=== PATIENT | female | born 1950 | race Caucasian/White ===

== ENCOUNTER → 2018-11-15 12:49 | Outpatient (CLI) | payer MEDICARE, OTHER, SELFPAY ==
[2018-11-15 14:11] LABS: Alanine Aminotransferase 21 IU/L (9-52); Albumin 4.7 g/dL (3.5-5.0); Albumin Globulin Ratio 1.4 (1.0-2.8); Alkaline Phosphatase 66 U/L (38-126); Aspartate Aminotransferase 48 IU/L (14-36); BUN Creatinine Ratio 18.3 (6-22); Blood Urea Nitrogen 11 mg/dL (7-17); Calcium 9.4 mg/dL (8.4-10.2); Carbon Dioxide 27 mmol/L (22-32); Chloride 102 mmol/L (98-107); Cholesterol 173 mg/dL (140-199); Creatine Kinase 116 U/L (30-135); Estimated Glomerular Filt Rate > 60.0 mL/min (>60); Globulin 3.3 g/dL (1.7-4.1); Glucose 85 mg/dL (80-110); HDL Cholesterol 52 mg/dL (40-60); HEMOLYSIS < 15 (0-50); LDL Cholesterol Calculated 92 mg/dL (<100); Potassium 4.1 mmol/L (3.4-5.1); Sodium 139 mmol/L (137-145); Triglycerides 145 mg/dL (35-150)
== END ==
PROVIDERS: Family Provider Internal Medicine; Visit Provider Internal Medicine Cardiovascular Disease
DX: E78.2 Mixed hyperlipidemia (principal); Z51.81 Encounter for therapeutic drug level monitoring
CPT/HCPCS: 36415; 80053; 80061; 82550

== ENCOUNTER → 2018-11-15 | Outpatient (CLI) | payer MEDICARE, OTHER, SELFPAY | PROVIDERS: Family Provider Internal Medicine; Visit Provider Internal Medicine Cardiovascular Disease | DX: E78.2 Mixed hyperlipidemia (principal); Z51.81 Encounter for therapeutic drug level monitoring ==

== ENCOUNTER → 2019-10-04 13:58 | Outpatient (CLI) | payer MEDICARE, OTHER, SELFPAY ==
--- NOTE | 2019-10-04 | DI.MG.S_ITS ---
BILATERAL DIGITAL SCREENING MAMMOGRAM 3D/2D WITH CAD: 10/04/2019 CLINICAL: Routine screening. Personal history of left breast cancer. Family history of breast cancer. Comparison is made to exams dated: 06/22/2018 mammogram and 06/14/2017 mammogram - [facility]. The tissue of both breasts is heterogeneously dense. This may lower the sensitivity of mammography. Current study was also evaluated with a Computer Aided Detection (CAD) system. There are benign calcifications in both breasts. There also are benign post operative findings in the left breast. No significant masses, calcifications, or other findings are seen in either breast. There has been no significant interval change. IMPRESSION: There is no mammographic evidence of malignancy. A 1 year screening mammogram is recommended. This exam was interpreted at Station ID: [id number]. NOTE: For mammograms, a report in lay terms will be sent to the patient. Approximately 15% of breast malignancies will not be visualized mammographically. In the management of a palpable breast mass, a negative mammogram must not discourage biopsy of a clinically suspicious lesion. Electronically Signed By: Paulo echevarria/lexi:10/04/2019 14:38:55 letter sent: Normal Exam ACR BI-RADS Category 2: Benign Finding(s) 3342F
== END ==
PROVIDERS: Family Provider Internal Medicine; PCP Internal Medicine; Referring Provider Internal Medicine; Visit Provider Internal Medicine
DX: Z12.31 Encounter for screening mammogram for malignant neoplasm of breast (principal); Z85.3 Personal history of malignant neoplasm of breast; Z80.3 Family history of malignant neoplasm of breast
CPT/HCPCS: 77063; 77067

== ENCOUNTER → 2019-12-02 10:37 | Outpatient (CLI) | payer MEDICARE, OTHER, SELFPAY ==
[2019-12-02 11:56] LABS: Alanine Aminotransferase 15 IU/L (<35); Albumin 4.6 g/dL (3.5-5.0); Albumin Globulin Ratio 1.4 (1.0-2.8); Alkaline Phosphatase 77 U/L (38-126); Aspartate Aminotransferase 42 IU/L (14-36); BUN Creatinine Ratio 19.7 (6-22); Bilirubin Total 0.8 mg/dL (0.2-1.3); Blood Urea Nitrogen 12 mg/dL (7-17); Calcium 9.6 mg/dL (8.4-10.2); Carbon Dioxide 29 mmol/L (22-32); Chloride 103 mmol/L (98-107); Cholesterol 154 mg/dL (140-199); Creatine Kinase 118 U/L (30-135); Estimated Glomerular Filt Rate > 60.0 mL/min (>60); Globulin 3.3 g/dL (1.7-4.1); Glucose 92 mg/dL (80-110); HDL Cholesterol 50 mg/dL (40-60); HEMOLYSIS < 15 (0-50); LDL Cholesterol Calculated 71 mg/dL (<100); Potassium 4.2 mmol/L (3.4-5.1); Sodium 138 mmol/L (137-145); Total Protein 7.9 g/dL (6.3-8.2); Triglycerides 166 mg/dL (35-150)
[2019-12-02 12:11] LABS: CKMB % Relative Index 0.8 % (1.5-5.0); Creatine Kinase MB 0.93 ng/mL (<2.37)
== END ==
PROVIDERS: Family Provider Internal Medicine; PCP Internal Medicine; Referring Provider Internal Medicine Cardiovascular Disease; Visit Provider Internal Medicine Cardiovascular Disease
DX: E78.5 Hyperlipidemia, unspecified (principal)
CPT/HCPCS: 36415; 80053; 80061; 82550; 82553

== ENCOUNTER → 2020-09-23 08:55 | Outpatient (CLI) | payer MEDICARE, OTHER, SELFPAY ==
--- NOTE | 2020-09-23 08:57 | DI.ECHO.S_ITS ---
[facility] +---------+ [facility] +---------+ : : [address] : [place] : : : : [id number] : : : : Phone: [phone]---------+ Echocardiogram Report + + :Name: LEANA MCINTOSH Study Date: 09/23/2020 Height: 65 in : :[facility] ReadingLocation: Weight: 158 lb : : Gender: Female BSA: 1.8 m2 : :: 1950 Age: 70 yrs BP: 173/88 mmHg: :Reason For Study: PROSTHETIC HEART VALVE : :Ordering Physician: JENNY MOHR : : Performed By: Judy Francis : :Referring: JENNY MOHR MD : + + Interpretation Summary Left ventricular systolic function appears borderline reduced with an estimated ejection fraction of 50 to 55% with borderline global hypokinesis but no obvious focal wall motion abnormality. Left ventricular volumes are borderline increased with probable normal wall thickness. Diastolic function is somewhat challenging to assess but there is some evidence for elevated filling pressures. The right ventricle is borderline enlarged with borderline reduced systolic function. Right ventricular systolic pressure is at least 30 mmHg with a CVP of 3 mmHg. There is moderate left atrial enlargement and borderline right atrial enlargement. There is probable moderate, perhaps moderately severe, mitral regurgitation with a fairly impressive regurgitant jet. There is mild to moderate tricuspid regurgitation. There is a mechanical aortic valve prosthesis that appears to be well-seated with probable normal gradients across the valve. There is mild aortic regurgitation that may be perivalvular. The aortic root is at the upper limits of normal in size. Procedure: A two-dimensional transthoracic echocardiogram with color flow and Doppler was performed. The study quality was technically adequate. There is no prior echocardiogram noted for this patient. The patient was in sinus bradycardia with heart rates between 48-55 bpm during the exam. Left Ventricle: Left ventricular size is at the upper limits of normal. The estimated left ventricular end diastolic volume is 97 ml. There is normal left ventricular wall thickness. Left ventricular systolic function is borderline reduced. The ejection fraction is estimated to be 50-55%. There is borderline global hypokinesis of the left ventricle. There are no focal wall motion abnormalities. Diastolic parameters suggest a pseudonormalization pattern, consistent with probable elevated filling pressures. Right Ventricle: The right ventricle is borderline dilated. Right ventricular systolic function is at the lower limits of normal. Atria: The left atrium is moderately dilated. The right atrium is borderline dilated. Mitral Valve: There is mild mitral annular calcification. The mitral valve leaflets appear mildly thickened, but open well. There is moderate mitral regurgitation. There are multiple regurgitant jets present. Aortic Valve: There is a mechanical aortic valve. The prosthetic aortic valve is well-seated. The gradients through the prosthetic aortic valve are within the normal range for this type of valve. The peak aortic velocity is 2.2 m/sec. The aortic valve mean gradient is 9.4 mmHg. There is mild aortic regurgitation. Tricuspid Valve: The tricuspid valve leaflets are thin and pliable. There is mild to moderate tricuspid regurgitation. The right ventricular systolic pressure is estimated to be at least 30 mmHg based on an estimated right atrial pressure of 3 mm Hg. Pulmonic Valve: The pulmonic valve leaflets are thin and pliable; valve motion is normal. There is no pulmonic valvular regurgitation. Great Vessels: The aortic root is borderline dilated. The dimensions of the ascending aorta are normal. The IVC is of normal diameter and collapses greater than 50% with a sniff. This suggests a low right atrial pressure of 3 mm Hg. Pericardium/ Pleura There is no pericardial effusion. There is no pleural effusion. MMode/2D Measurements & Calculations LVIDd: 5.7 cm LVOT diam: 2.0 cm LVIDs: 3.9 cm Ao root diam: 3.6 cm FS: 31.6 % asc Aorta Diam: 2.9 cm EPSS: 1.0 cm Ao Arch Diam (Prox Trans): 2.9 cm IVSd: 0.74 cm LVPWd: 0.74 cm LV guerra. diameter/BSA (cm/m^2): 3.2 LV sys. diameter/BSA (cm/m^2): 2.2 LA A2 area: 26.0 cm2 RA long axis: 5.3 cm LA A4 area: 21.7 cm2 RA area: 17.6 cm2 LA length (vol): 5.6 cm RA vol: 50.1 ml LA vol: 85.1 ml RA : 28.0 ml/m2 LA vol index: 47.6 ml/m2 IVC diam: 1.6 cm RVD1 (basal): 4.1 cm TAPSE: 1.8 cm Doppler Measurements & Calculations Ao V2 max: 217.1 cm/sec LVOT Max Mono: 61.1 cm/sec Ao V2 mean: 142.9 cm/sec LV V1 max P.5 mmHg Ao max P.9 mmHg LV V1 VTI: 16.6 cm Ao mean P.4 mmHg JJ(I,D): 1.0 cm2 Ao V2 VTI: 49.1 cm JJ(V,D): 0.86 cm2 sev ratio: 0.34 JJ indexed to BSA (cm^2/m^2): 0.58 MV E max mono: 111.6 cm/sec TR max mono: 261.1 cm/sec MV A max mono: 82.5 cm/sec TR max P.3 mmHg MV E/A: 1.4 PA V2 max: 99.3 cm/sec Med Peak E' Mono: 4.0 cm/sec PA V2 mean: 66.2 cm/sec E/E' med: 27.7 PA mean P.0 mmHg Lat Peak E' Mono: 8.6 cm/sec PA pr(Accel): 39.6 mmHg E/E' lat: 13.0 E/e' average: 20.4 MV dec time: 0.15 sec MR ERO: 0.12 cm2 MR PISA: 2.0 cm2 SV(LVOT): 50.6 ml MR flow rate: 79.3 cm3/sec MR PISA radius: 0.56 cm Reading Physician:12:39 PM
== END ==
PROVIDERS: Family Provider Internal Medicine; PCP Internal Medicine; Referring Provider Internal Medicine Cardiovascular Disease; Visit Provider Internal Medicine Cardiovascular Disease
DX: I08.3 Combined rheumatic disorders of mitral, aortic and tricuspid valves (principal); Z95.2 Presence of prosthetic heart valve
CPT/HCPCS: 93306

== ENCOUNTER → 2020-10-01 10:37 | Outpatient (CLI) | payer MEDICARE, OTHER, SELFPAY ==
[2020-10-01 12:09] LABS: Alanine Aminotransferase 18 IU/L (<35); Albumin 4.5 g/dL (3.5-5.0); Albumin Globulin Ratio 1.4 (1.0-2.8); Alkaline Phosphatase 68 U/L (38-126); Aspartate Aminotransferase 57 IU/L (14-36); BUN Creatinine Ratio 19.7 (6-22); Bilirubin Total 0.8 mg/dL (0.2-1.3); Blood Urea Nitrogen 12 mg/dL (7-17); Calcium 9.4 mg/dL (8.4-10.2); Carbon Dioxide 30 mmol/L (22-32); Chloride 104 mmol/L (98-107); Cholesterol 165 mg/dL (140-199); Creatine Kinase 104 U/L (30-135); Estimated Glomerular Filt Rate > 60.0 mL/min (>60); Globulin 3.3 g/dL (1.7-4.1); Glucose 91 mg/dL (80-110); HDL Cholesterol 55 mg/dL (40-60); HEMOLYSIS < 15 (0-50); LDL Cholesterol Calculated 77 mg/dL (<100); Potassium 4.2 mmol/L (3.4-5.1); Sodium 139 mmol/L (137-145); Total Protein 7.8 g/dL (6.3-8.2); Triglycerides 167 mg/dL (35-150)
== END ==
PROVIDERS: Family Provider Internal Medicine; PCP Internal Medicine; Referring Provider Internal Medicine Cardiovascular Disease; Visit Provider Internal Medicine Cardiovascular Disease
DX: E78.00 Pure hypercholesterolemia, unspecified (principal)
CPT/HCPCS: 36415; 80053; 80061; 82550

== ENCOUNTER → 2021-08-19 14:22 | Outpatient (CLI) | payer MEDICARE, OTHER, SELFPAY ==
--- NOTE | 2021-08-19 | DI.MG.S_ITS ---
BILATERAL DIGITAL SCREENING MAMMOGRAM 3D/2D WITH CAD: 08/19/2021 CLINICAL: Routine screening. Personal history of left breast cancer. Comparison is made to exams dated: 10/04/2019 mammogram - [facility], 06/22/2018 mammogram, and 06/14/2017 mammogram - [facility]. The tissue of both breasts is heterogeneously dense. This may lower the sensitivity of mammography. Current study was also evaluated with a Computer Aided Detection (CAD) system. There are benign calcifications in both breasts. There also are benign post operative findings in the left breast. No significant masses, calcifications, or other findings are seen in either breast. There has been no significant interval change. IMPRESSION: BENIGN There is no mammographic evidence of malignancy. A 1 year screening mammogram is recommended. This exam was interpreted at Station ID: [id number]. NOTE: For mammograms, a report in lay terms will be sent to the patient. Approximately 15% of breast malignancies will not be visualized mammographically. In the management of a palpable breast mass, a negative mammogram must not discourage biopsy of a clinically suspicious lesion. Electronically Signed By: Kelin pereira/lexi:08/19/2021 16:40:01 letter sent: Normal Exam ACR BI-RADS Category 2: Benign Finding(s) 3342F
== END ==
PROVIDERS: Family Provider Internal Medicine; PCP Internal Medicine; Referring Provider Internal Medicine; Visit Provider Internal Medicine
DX: Z12.31 Encounter for screening mammogram for malignant neoplasm of breast (principal); Z85.3 Personal history of malignant neoplasm of breast
CPT/HCPCS: 77063; 77067

== ENCOUNTER → 2022-01-22 13:47 | Outpatient (CLI) | payer MEDICARE, OTHER, SELFPAY ==
[2022-01-30 09:44] LABS: CK-BB 0 % (0); CK-MB 0 % (0-3); CK-MM 100 % (97-100); Macro Type 1 0 % (Not Observed); Macro Type 2 0 % (Not Observed)
== END ==
PROVIDERS: Family Provider Internal Medicine; PCP Internal Medicine; Referring Provider Internal Medicine Cardiovascular Disease; Visit Provider Internal Medicine Cardiovascular Disease
DX: Z51.81 Encounter for therapeutic drug level monitoring (principal)
CPT/HCPCS: 36415; 82550; 82553

== ENCOUNTER → 2022-08-24 10:57 | Outpatient (CLI) | payer MEDICARE, OTHER, SELFPAY ==
--- NOTE | 2022-08-24 | DI.MG.S_ITS ---
BILATERAL DIGITAL SCREENING MAMMOGRAM 3D/2D WITH CAD: 08/24/2022 CLINICAL: Routine screening. Family history of breast cancer. Breast cancer. Comparison is made to exams dated: 08/19/2021 mammogram, 10/04/2019 mammogram - [facility], and 06/22/2018 mammogram - [facility]. Both breasts are heterogeneously dense, which may obscure small masses (category c / 51-75% glandular tissue). Current study was also evaluated with a Computer Aided Detection (CAD) system. There are benign calcifications in both breasts. There also are benign post operative findings in the left breast. No significant masses, calcifications, or other findings are seen in either breast. There has been no significant interval change. IMPRESSION: BENIGN There is no mammographic evidence of malignancy. A 1 year screening mammogram is recommended. This exam was interpreted at Station ID: [id number]. NOTE: For mammograms, a report in lay terms will be sent to the patient. Approximately 15% of breast malignancies will not be visualized mammographically. In the management of a palpable breast mass, a negative mammogram must not discourage biopsy of a clinically suspicious lesion. Electronically Signed By: Kelin pereira/lexi:08/24/2022 12:07:36 letter sent: Normal Exam ACR BI-RADS Category 2: Benign Finding(s) 3342F
== END ==
PROVIDERS: Family Provider Internal Medicine; PCP Internal Medicine; Referring Provider Internal Medicine; Visit Provider Internal Medicine
DX: Z12.31 Encounter for screening mammogram for malignant neoplasm of breast (principal)
CPT/HCPCS: 77063; 77067

== ENCOUNTER 2022-12-31 08:02 | Emergency (ER) | payer MEDICARE, OTHER, SELFPAY ==
[2022-12-31] VITALS (38 sets, daily range): BP systolic 120–191; BP diastolic 55–138; PULSE 51–68; RESP 7–22; TEMP 35.6–36.4; O2SAT 90–99; BMI 25.0
--- NOTE | 2022-12-31 08:08 | DI.RAD.S_ITS ---
PROCEDURE: XR CHEST 1V INDICATIONS: weakness TECHNIQUE: One view of the chest was acquired. COMPARISON: None. FINDINGS: Surgical changes and devices: Sternotomy wires, mediastinal clips, and prosthetic heart valve are noted. Lungs and pleura: Lungs are clear. No pleural effusions or pneumothorax. Mediastinum: Tortuosity of the aorta is noted. Cardiac size is within normal limits for a portable exam. Bones and chest wall: No suspicious bony lesions. Overlying soft tissues appear unremarkable. IMPRESSION: No acute cardiopulmonary abnormality identified. Approved by: Jeb Rodriguez M.D. on 12/31/2022 at 8:50
--- NOTE | 2022-12-31 08:08 | DI.CT.S_ITS ---
PROCEDURE: CT HEAD/BRAIN WO CON INDICATIONS: MARTINEZ/N/V TECHNIQUE: Noncontrast 4.5 mm thick angled axial sections acquired from the foramen magnum to the vertex, with coronal and sagittal reformats. For radiation dose reduction, the following was used: automated exposure control, adjustment of mA and/or kV according to patient size. COMPARISON: None. FINDINGS: Image quality: Excellent. CSF spaces: Basal cisterns are patent. No extra-axial fluid collections. The ventricles are symmetric in size and shape. Brain: There is a 1.6 x 1.2 x 1.5 cm hyperdense mass in the left cerebellum. There is mild vasogenic edema surrounding the mass. No intracranial bleeds or masses. There is cerebral volume loss for age, with resultant ventricular and sulcal prominence. There are periventricular and deep white matter chronic small vessel ischemic changes. There is intracranial internal carotid artery atherosclerosis. Skull and face: Calvarium and visualized facial bones appear intact, without suspicious lesions. Sinuses: Visualized sinuses and mastoids are clear. IMPRESSION: 1. A 1.6 x 1.2 x 1.5 cm hyperdense mass in the left cerebellum with mild vasogenic edema and mass effect. The finding is concerning for neoplasm such as hemorrhagic metastasis. Recommend MRI with and without contrast for further evaluation. The result was discussed with Dr. Roth. Dictated by: Gm Servin M.D. on 12/31/2022 at 8:21 Approved by: Gm Servin M.D. on 12/31/2022 at 8:25
--- NOTE | 2022-12-31 08:09 | ED_ITS ---
HPI - Nausea/Vomiting/Diarrhea General Chief complaint: Nausea/Vomiting/Diarrhea Stated complaint: N/V/D, Dizziness Time Seen by Provider: 12/31/22 08:05 History of Present Illness HPI Narrative: 72-year-old female with history of hypertension, hyperlipidemia, aortic valve replacement on Coumadin (congential problems) presents by EMS from home for nausea, vomiting, generalized weakness. Patient states that she woke up with a low-grade headache and subsequently developed nausea, vomiting, diarrhea. Headache is currently resolved but patient feels generally weak and lightheaded. Vital signs significant for hypertension EN route. Patient states she went to bed in her usual state of good health. Denies abdominal pain Related Data Allergies Allergy/AdvReac Type Severity Reaction Status Date / Time penicillin G Allergy Mild Verified 10/18/22 11:25 Tetracyclines Allergy Mild Verified 12/31/22 08:09 Review of Systems Review of Systems Narrative: CONSTITUTIONAL- Denies: fever, chills, fatigue HEENT- Denies: sore throat, nosebleed, vision changes RESPIRATORY- Denies: shortness of breath, cough, wheezing CARDIAC- Denies: chest pain, edema, orthopnea GI-reports: Nausea, vomiting, diarrhea Denies: abdominal pain, constipation - Denies: frequency, dysuria, hematuria, flank pain MSK- Denies: extremity pain, extremity swelling, joint pain, joint swelling SKIN- Denies: rash, itching, burn, swelling NEUROLOGICAL-reports: Headache Denies: numbness, weakness, dizziness PSYCHIATRIC- Denies: anxiety, depression, suicidal ideation, homicidal ideation Patient History Social History Smoking Status: Never smoker Smoking Status: Never smoker Exam Initial Vital Signs Initial Vital Signs: Vital Signs Blood Pressure 189/92 H 12/31/22 08:05 Pulse Oximetry 97 12/31/22 08:05 Const: Awake, alert, no acute distress, nontoxic appearing, appears fatigued Eyes: PERRL, EOMI, conjunctiva normal ENT: Atraumatic, dentition normal, mucous membranes moist Cardiac: regular rate, regular rhythm RESP: unlabored, clear bilaterally, no wheezing GI: Atraumatic, soft, nontender, nondistended, no rebound, no guarding MSK: Atraumatic, full range of motion, pulses equal Skin: Warm, Dry, intact, no rashes Neuro: AO x3, CN II-XII grossly intact, moves all extremities Psych: affect normal, mood normal, not suicidal, not homicidal Course Course Course Narrative: Nontoxic-appearing female presenting for nausea and vomiting with diarrhea. Previous low-grade headache, none currently. Abdomen is soft, there is no tenderness to light or deep palpation. Patient states that currently her primary concern is her generalized weakness. We will draw laboratory work, we will give antiemetics and IV fluids. We will CT brain due to headache prior to symptom onset. Additional Information: Patient's case discussed with neurosurgery Dr. Zaldivar at , who requested additional 5 mg of IV vitamin K but otherwise agree with current management. He accepts this patient for transfer ER to ER, he requested that if no transport has arrived by 12:00 p.m. that we order an additional CT scan of the brain. I discussed the results of all labs and imaging as well as the neurosurgical recommendations with patient and at bedside. is still attempting to obtain records of patient's mechanical valve. We will continue to attempt to obtain a mechanical valve records while patient is in our ER. Orders Ordered: ED Orders 12/31/22 08:08 CT head/brain wo con Stat XR chest 1V Stat 12/31/22 08:11 EKG-12 Lead Stat 12/31/22 08:12 CBC Auto Diff [Complete Blood Count AUTO DIFF] Stat CMP [Comprehensive Metabolic Panel] Stat Lipase Stat 12/31/22 08:14 PT [Prothrombin Time INR] Stat Trop I [Troponin I] Stat 12/31/22 08:45 FFP [Fresh Frozen Plasma] Stat Type and Screen Stat 12/31/22 09:25 COVID19 -Nasal RAPID Stat Nicardipine HCl 25 mg/ Sodium (Chloride) 250 mls @ 50 mls/hr IV TITRATE JESUSITA; Protocol Last Titration: 12/31/22 09:39 Dose: 2.5 mg/hr, 25 mls/hr Documented By: Admin: 12/31/22 08:38 Dose: 5 mg/hr, 50 mls/hr Documented By: NL Discontinued Medications Dexamethasone (Dexamethasone 10 Mg/Ml Vial) 10 mg IV NOW ONE Stop: 12/31/22 08:26 Last Admin: 12/31/22 08:38 Dose: 10 mg Documented By: NEIL Sodium Chloride (Normal Saline 0.9%) 1,000 mls @ 1,000 mls/hr IV BOLUS ONE Stop: 12/31/22 09:08 Last Admin: 12/31/22 08:24 Dose: 1,000 mls/hr Documented By: NEIL Phytonadione 10 mg/ Sodium (Chloride) 101 mls @ 202 mls/hr IV NOW ONE Stop: 12/31/22 08:32 Last Infusion: 12/31/22 09:33 Dose: 0 mls/hr Documented By: Admin: 12/31/22 08:46 Dose: 202 mls/hr Documented By: NEIL Phytonadione 5 mg/ Sodium (Chloride) 100.5 mls @ 201 mls/hr IV NOW ONE Stop: 12/31/22 10:06 Last Admin: 12/31/22 10:30 Dose: 201 mls/hr Metoclopramide HCl (Metoclopramide 10 Mg/2 Ml Inj) 10 mg IV NOW ONE Stop: 12/31/22 08:37 Last Admin: 12/31/22 08:42 Dose: 10 mg Documented By: NEIL Ondansetron HCl (Ondansetron 4 Mg/2 Ml Inj) 4 mg IV NOW ONE Stop: 12/31/22 08:09 Last Admin: 12/31/22 08:24 Dose: 4 mg Documented By: NEIL Reevaluation(s) Reevaluation #1: Preliminary read of CT shows possible bleed in the cerebellar region. I requested that radiology technicians push images urgently to radiologist for stat read. Reevaluation #2: Radiology called to discuss patient's scan. There appears to be vasogenic edema and a possible mass in the cerebellar region with possible hemorrhage. This is concerning for metastases. Recommended MRI of brain with and without contrast. Unfortunately patient does have an artificial mechanical valve. She states that it is a [place] valve but does not have a card on her. Per department protocol we are not able to obtain an MRI without a card that is specifically states that it is MRI compatible. I called the patient's Thang, who stated that he would reach out to the patient's heart doctor to see if he could get records faxed over to ER for review. Call received from lab, patient's INR is elevated at 7.7. Due to hypertension in setting of possible hemorrhage with vasogenic edema patient started on Cardene drip, vitamin K ordered to reverse INR, Decadron ordered. Consult requested to [facility] neurosurgery. Dr. Zaldivar agreed with current management, requested additional 5mg vitamin K as well as 1u FFP prior to transfer. If patient does not have transport by 12p then he requested a repeat CT of the brain. Reevaluation #3: Ambulance transport arrived to take patient to [facility]. Patient GCS 15, no neurologic deficits, hemodynamically stable. Consultations Consultation #1: Dr. Zaldivar ([facility] [place]) Vital Signs Vital signs: Vital Signs - 8 hr 12/31/22 08:09 12/31/22 08:05 12/31/22 08:05 Temperature 97.5 F L Pulse Rate 64 Respiratory Rate 22 Blood Pressure 191/92 H 189/92 H Pulse Oximetry 98 97 Oxygen Delivery Method Room Air Oxygen Flow Rate 12/31/22 08:08 12/31/22 08:08 12/31/22 08:22 Temperature Pulse Rate 66 Respiratory Rate 19 Blood Pressure 191/92 H 175/76 H Pulse Oximetry 98 Oxygen Delivery Method Oxygen Flow Rate 12/31/22 08:22 12/31/22 08:30 12/31/22 08:30 Temperature Pulse Rate 58 L 53 L Respiratory Rate 19 18 Blood Pressure 166/71 H Pulse Oximetry 98 98 Oxygen Delivery Method Oxygen Flow Rate 12/31/22 08:35 12/31/22 08:35 12/31/22 08:39 Temperature Pulse Rate 67 Respiratory Rate 22 Blood Pressure 188/138 H 165/75 H Pulse Oximetry 98 Oxygen Delivery Method Oxygen Flow Rate 12/31/22 08:39 12/31/22 08:40 12/31/22 08:40 Temperature Pulse Rate 64 62 Respiratory Rate 20 18 Blood Pressure 173/69 H Pulse Oximetry 98 98 Oxygen Delivery Method Oxygen Flow Rate 12/31/22 08:46 12/31/22 08:46 12/31/22 08:50 Temperature Pulse Rate 59 L Respiratory Rate 20 Blood Pressure 148/66 H 145/63 H Pulse Oximetry Oxygen Delivery Method Oxygen Flow Rate 12/31/22 08:50 12/31/22 08:55 12/31/22 08:55 Temperature Pulse Rate 59 L 57 L Respiratory Rate 19 18 Blood Pressure 145/67 H Pulse Oximetry 98 98 Oxygen Delivery Method Oxygen Flow Rate 12/31/22 09:00 12/31/22 09:00 12/31/22 09:05 Temperature Pulse Rate 55 L Respiratory Rate 18 Blood Pressure 149/71 H 147/68 H Pulse Oximetry 97 Oxygen Delivery Method Oxygen Flow Rate 12/31/22 09:05 12/31/22 09:10 12/31/22 09:10 Temperature Pulse Rate 55 L 56 L Respiratory Rate 17 19 Blood Pressure 145/67 H Pulse Oximetry 98 99 Oxygen Delivery Method Oxygen Flow Rate 12/31/22 09:15 12/31/22 09:15 12/31/22 09:20 Temperature Pulse Rate 63 59 L Respiratory Rate 18 18 Blood Pressure 140/62 Pulse Oximetry 98 90 L Oxygen Delivery Method Oxygen Flow Rate 12/31/22 09:20 12/31/22 09:25 12/31/22 09:25 Temperature Pulse Rate 62 Respiratory Rate 18 Blood Pressure 128/62 132/60 Pulse Oximetry 99 Oxygen Delivery Method Nasal Cannula Oxygen Flow Rate 2 12/31/22 09:30 12/31/22 09:30 12/31/22 09:35 Temperature Pulse Rate 57 L Respiratory Rate 15 Blood Pressure 124/55 L 120/58 L Pulse Oximetry 99 Oxygen Delivery Method Oxygen Flow Rate 12/31/22 09:35 12/31/22 09:40 12/31/22 09:40 Temperature Pulse Rate 51 L 60 Respiratory Rate 7 L 14 Blood Pressure 124/61 Pulse Oximetry 97 98 Oxygen Delivery Method Oxygen Flow Rate 12/31/22 09:45 12/31/22 09:45 12/31/22 09:50 Temperature Pulse Rate 58 L Respiratory Rate 11 L Blood Pressure 125/65 129/66 Pulse Oximetry 98 Oxygen Delivery Method Oxygen Flow Rate 12/31/22 09:50 12/31/22 09:54 12/31/22 09:55 Temperature Pulse Rate 58 L 58 L Respiratory Rate 15 17 Blood Pressure 138/70 Pulse Oximetry 98 98 Oxygen Delivery Method Oxygen Flow Rate 12/31/22 09:55 12/31/22 10:00 12/31/22 10:00 Temperature Pulse Rate 64 64 Respiratory Rate 17 14 Blood Pressure 143/76 H Pulse Oximetry 98 99 Oxygen Delivery Method Oxygen Flow Rate 12/31/22 10:05 12/31/22 10:05 12/31/22 10:10 Temperature Pulse Rate 61 Respiratory Rate 15 Blood Pressure 140/71 138/67 Pulse Oximetry 99 Oxygen Delivery Method Oxygen Flow Rate 12/31/22 10:10 12/31/22 10:15 12/31/22 10:15 Temperature Pulse Rate 62 57 L Respiratory Rate 17 15 Blood Pressure 135/68 Pulse Oximetry 98 98 Oxygen Delivery Method Nasal Cannula Oxygen Flow Rate 2 12/31/22 10:20 12/31/22 10:20 Temperature Pulse Rate 60 Respiratory Rate 18 Blood Pressure 131/69 Pulse Oximetry 98 Oxygen Delivery Method Oxygen Flow Rate MDM - Nausea/Vomiting/Diarrhea Lab Data 12/31/22 08:12 12/31/22 08:12 Labs: Lab Results 12/31/22 12/31/22 12/31/22 Range/Units 08:12 08:12 08:14 WBC 6.1 (4.5-11.0) X10^3/uL RBC 4.22 (4.0-5.2) X10^6/uL Hgb 13.8 (12.0-16.0) g/dL Hct 40.5 (36-46) % MCV 96.0 (80-100) fL MCH 32.8 (26-34) PG MCHC 34.1 (30-36) % RDW 12.9 (11.6-14.8) % Plt Count 236 (150-400) X10^3/uL Neut % (Auto) 50.2 (50-75) % Lymph % (Auto) 30.9 (25-40) % Sunflower % (Auto) 10.0 (3-14) % Eos % (Auto) 4.7 H (2-4) % Baso % (Auto) 4.2 H (0-2) % Neut # (Auto) 3000 (3073-6701) /uL Lymph # (Auto) 1900 (3163-2776) /uL Sunflower # (Auto) 600 (0-900) /uL Eos # (Auto) 300 (0-450) /uL Baso # (Auto) 300 H (0-100) /uL PT (10.1-12.7) SECONDS INR (0.9-1.3) Sodium 138 (137-145) mmol/L Potassium 3.8 (3.4-5.1) mmol/L Chloride 104 (98-107) mmol/L Carbon Dioxide 25 (22-32) mmol/L BUN 11 (7-17) mg/dL Creatinine 0.52 (0.52-1.04) mg/dL Estimated GFR > 60 (>60) mL/min BUN/Creatinine Ratio 21.2 (6-22) Glucose 117 H (80-110) mg/dL Calcium 9.3 (8.4-10.2) mg/dL Total Bilirubin 0.7 (0.2-1.3) mg/dL AST 59 H (14-36) IU/L ALT 32 (<35) IU/L Alkaline Phosphatase 81 (38-126) U/L Troponin I < 0.012 (0.01-0.034) ng/mL Total Protein 7.9 (6.3-8.2) g/dL Albumin 4.5 (3.5-5.0) g/dL Globulin 3.4 (1.7-4.1) g/dL Albumin/Globulin Ratio 1.3 (1.0-2.8) Lipase 106 (23-300) U/L SARS-CoV-2 (PCR) (Negative) Blood Type Antibody Screen 12/31/22 12/31/22 12/31/22 Range/Units 08:14 08:45 09:25 WBC (4.5-11.0) X10^3/uL RBC (4.0-5.2) X10^6/uL Hgb (12.0-16.0) g/dL Hct (36-46) % MCV (80-100) fL MCH (26-34) PG MCHC (30-36) % RDW (11.6-14.8) % Plt Count (150-400) X10^3/uL Neut % (Auto) (50-75) % Lymph % (Auto) (25-40) % Sunflower % (Auto) (3-14) % Eos % (Auto) (2-4) % Baso % (Auto) (0-2) % Neut # (Auto) (4040-6538) /uL Lymph # (Auto) (1064-8182) /uL Sunflower # (Auto) (0-900) /uL Eos # (Auto) (0-450) /uL Baso # (Auto) (0-100) /uL PT 90.7 H (10.1-12.7) SECONDS INR 7.7 H* (0.9-1.3) Sodium (137-145) mmol/L Potassium (3.4-5.1) mmol/L Chloride (98-107) mmol/L Carbon Dioxide (22-32) mmol/L BUN (7-17) mg/dL Creatinine (0.52-1.04) mg/dL Estimated GFR (>60) mL/min BUN/Creatinine Ratio (6-22) Glucose (80-110) mg/dL Calcium (8.4-10.2) mg/dL Total Bilirubin (0.2-1.3) mg/dL AST (14-36) IU/L ALT (<35) IU/L Alkaline Phosphatase (38-126) U/L Troponin I (0.01-0.034) ng/mL Total Protein (6.3-8.2) g/dL Albumin (3.5-5.0) g/dL Globulin (1.7-4.1) g/dL Albumin/Globulin Ratio (1.0-2.8) Lipase (23-300) U/L SARS-CoV-2 (PCR) Negative (Negative) Blood Type O Positive Antibody Screen Negative Discharge Plan Departure Patient Disposition: [facility] Clinical Impression: Brain mass, Nausea & vomiting, Vasogenic edema, Supratherapeutic INR Referrals: Breanna Chaney MD [Primary Care Provider] -
[2022-12-31 08:17] LABS: Add Manual Diff / Slide Review NO; Basophils Absolute Auto 300 /uL (0-100); Basophils Percent Auto 4.2 % (0-2); Eosinophils Absolute Auto 300 /uL (0-450); Eosinophils Percent Auto 4.7 % (2-4); Hematocrit 40.5 % (36-46); Hemoglobin 13.8 g/dL (12.0-16.0); Lymphocytes Absolute Auto 1900 /uL (1100-4500); Lymphocytes Percent Auto 30.9 % (25-40); Mean Corpuscular HGB Conc 34.1 % (30-36); Mean Corpuscular Hemoglobin 32.8 PG (26-34); Monocytes Absolute Auto 600 /uL (0-900); Neutrophils Absolute Auto 3000 /uL (1500-7000); Neutrophils Percent Auto 50.2 % (50-75); Platelet Count 236 X10^3/uL (150-400); Red Blood Cell Count 4.22 X10^6/uL (4.0-5.2); Red Cell Distribution Width 12.9 % (11.6-14.8); White Blood Cell Count 6.1 X10^3/uL (4.5-11.0)
[2022-12-31] MEDS: ONDANSETRON 4 MG/2 ML INJ IV (08:24)
[2022-12-31] MEDS: SODIUM CHLORIDE 0.9% 1,000 ML 1000 ML IV (08:24)
[2022-12-31 08:28] LABS: Alanine Aminotransferase 32 IU/L (<35); Albumin 4.5 g/dL (3.5-5.0); Albumin Globulin Ratio 1.3 (1.0-2.8); Alkaline Phosphatase 81 U/L (38-126); Aspartate Aminotransferase 59 IU/L (14-36); BUN Creatinine Ratio 21.2 (6-22); Bilirubin Total 0.7 mg/dL (0.2-1.3); Blood Urea Nitrogen 11 mg/dL (7-17); Calcium 9.3 mg/dL (8.4-10.2); Carbon Dioxide 25 mmol/L (22-32); Chloride 104 mmol/L (98-107); Estimated Glomerular Filt Rate > 60 mL/min (>60); Globulin 3.4 g/dL (1.7-4.1); Glucose 117 mg/dL (80-110); HEMOLYSIS 19 (0-50); Lipase 106 U/L (23-300); Potassium 3.8 mmol/L (3.4-5.1); Sodium 138 mmol/L (137-145); Total Protein 7.9 g/dL (6.3-8.2)
[2022-12-31 08:32] LABS: INR 7.7 (0.9-1.3); Prothrombin Time 90.7 SECONDS (10.1-12.7)
[2022-12-31] MEDS: DEXAMETHASONE 10 MG/ML VIAL IV (08:38)
[2022-12-31] MEDS: NICARDIPINE 25 MG in SODIUM CHLORIDE 0.9% 240 ML 50 MG IV (08:38)
[2022-12-31 08:39] LABS: Troponin I < 0.012 ng/mL (0.01-0.034)
[2022-12-31] MEDS: METOCLOPRAMIDE 10 MG/2 ML INJ IV (08:42)
[2022-12-31] MEDS: PHYTONADIONE (VIT K1) 10 MG in SODIUM CHLORIDE 0.9% 100 ML 202 MG IV (08:46)
--- NOTE | 2022-12-31 09:32 | PC.NURSE ---
pure wick placed on patient after bedpan use. education provided. call light left within reach if patient has any concerns with purewick
--- NOTE | 2022-12-31 09:39 | PC.NURSE ---
spoke with provider to inform her pt's BP is 120/50s. verbal order to reduce nicardipene by 2.5
[2022-12-31 10:02] LABS: COVID19 -Nasal RAPID Negative (Negative)
[2022-12-31] MEDS: PHYTONADIONE (VIT K1) 5 MG in SODIUM CHLORIDE 0.9% 100 ML 201 MG IV (10:30)
--- NOTE | 2022-12-31 11:08 | PC.NURSE ---
pt bp has gradually been going up over last 30min. EMS to increase necardipine back up to 5/hr.
--- NOTE | 2022-12-31 11:15 | PC.NURSE ---
pt transferred to EMS with nicardipine infusing, rate changed by them per previous note. also transferred to EMS with FFP flowing, verbalized rate changed with no reactions after first 15min.
== END 2022-12-31 11:15 | disposition short-term general hospital (02) ==
PROVIDERS: Emergency Provider Emergency Medicine; Family Provider Internal Medicine; PCP Internal Medicine
DX: G93.6 Cerebral edema (principal); G93.89 Other specified disorders of brain; R79.1 Abnormal coagulation profile; R11.2 Nausea with vomiting, unspecified; Z79.01 Long term (current) use of anticoagulants; Z95.2 Presence of prosthetic heart valve; Z20.822 Contact with and (suspected) exposure to COVID-19
CPT/HCPCS: 36430; 70450; 71045; 80053; 83690; 84484; 85025; 85610; 86850; 86900; 86901; 86927; 87635; 93005; 96365; 96375; 99285; C9803; P9016; P9017; J1100; J2405; J2765; J3430

== ENCOUNTER → 2023-06-07 12:31 | Outpatient (CLI) | payer MEDICARE, OTHER, SELFPAY ==
[2023-06-07 13:43] LABS: Add Manual Diff / Slide Review NO; Basophils Absolute Auto 0 /uL (0-100); Basophils Percent Auto 0.3 % (0-2); Eosinophils Absolute Auto 100 /uL (0-450); Hematocrit 39.8 % (36-46); Hemoglobin 13.6 g/dL (12.0-16.0); Lymphocytes Absolute Auto 800 /uL (1100-4500); Lymphocytes Percent Auto 13.7 % (25-40); Mean Corpuscular HGB Conc 34.1 % (30-36); Mean Corpuscular Hemoglobin 32.5 PG (26-34); Mean Corpuscular Volume 95.2 fL (80-100); Monocytes Absolute Auto 600 /uL (0-900); Monocytes Percent Auto 11.1 % (3-14); Neutrophils Absolute Auto 4000 /uL (1500-7000); Neutrophils Percent Auto 72.9 % (50-75); Platelet Count 217 X10^3/uL (150-400); Red Blood Cell Count 4.18 X10^6/uL (4.0-5.2); Red Cell Distribution Width 13.7 % (11.6-14.8); White Blood Cell Count 5.5 X10^3/uL (4.5-11.0)
[2023-06-07 14:00] LABS: INR 2.9 (0.9-1.3); Prothrombin Time 34.2 SECONDS (9.4-12.5)
[2023-06-07 14:07] LABS: Alanine Aminotransferase 21 IU/L (<35); Albumin 4.6 g/dL (3.5-5.0); Albumin Globulin Ratio 1.4 (1.0-2.8); Alkaline Phosphatase 65 U/L (38-126); Aspartate Aminotransferase 47 IU/L (14-36); BUN Creatinine Ratio 23.2 (6-22); Bilirubin Total 0.8 mg/dL (0.2-1.3); Blood Urea Nitrogen 13 mg/dL (7-17); Calcium 9.6 mg/dL (8.4-10.2); Carbon Dioxide 36 mmol/L (22-32); Chloride 103 mmol/L (98-107); Cholesterol 131 mg/dL (140-199); Estimated Glomerular Filt Rate > 60 mL/min (>60); Globulin 3.3 g/dL (1.7-4.1); Glucose 83 mg/dL (80-110); HDL Cholesterol 56 mg/dL (40-60); HEMOLYSIS < 15 (0-50); LDL Cholesterol Calculated 44 mg/dL (<100); Potassium 3.9 mmol/L (3.4-5.1); Sodium 139 mmol/L (137-145); Total Protein 7.9 g/dL (6.3-8.2); Triglycerides 157 mg/dL (35-150)
[2023-06-07 14:36] LABS: Thyroid Stimulating Hormone 1.95 uIU/mL (0.47-4.68)
[2023-06-07 15:13] LABS: Folate 9.8 ng/mL (2.76-20.0); Vitamin B12 620 pg/mL (239-931)
[2023-06-07 15:20] LABS: Vitamin D 25 Hydroxy (D3) 41.4 ng/mL (30.0-100.0)
[2023-06-08 11:15] LABS: Hemoglobin A1C% w Est Avg Glu 5.2 % (4.0-6.0)
== END ==
LOC: LAB 12:34
PROVIDERS: Family Provider Family Medicine; PCP Family Medicine; Referring Provider Family Medicine; Visit Provider Family Medicine
DX: I35.9 Nonrheumatic aortic valve disorder, unspecified (principal); R73.9 Hyperglycemia, unspecified; Z79.899 Other long term (current) drug therapy; E78.5 Hyperlipidemia, unspecified; M85.80 Other specified disorders of bone density and structure, unspecified site; R41.3 Other amnesia
CPT/HCPCS: 36415; 80053; 80061; 82306; 82607; 82746; 83036; 84443; 85025; 85610

== ENCOUNTER → 2023-06-11 10:26 | Outpatient (CLI) | payer MEDICARE, OTHER, SELFPAY ==
--- NOTE | 2023-06-11 10:30 | DI.MRI.S_ITS ---
PROCEDURE: MR HIP LT WO CON INDICATIONS: Pain in left hip TECHNIQUE: Noncontrast coronal T1 spin echo and STIR through the bony pelvis. Coronal and axial T2 fast spin echo with fat saturation, sagittal T1 spin echo, and oblique axial T2 fast spin echo with fat saturation through the hip. COMPARISON: None. FINDINGS: Image quality: Excellent. Bones and joints: Bone marrow of the pelvic ring and proximal femurs show normal signal throughout. No intraosseous lesions or fractures. No avascular necrosis of the femoral head. Degenerative disc disease and facet hypertrophy are seen in the included spine. Tendons and ligaments: The gluteus medius and minimus tendons demonstrate mild tendinosis. The proximal iliotibial band appears intact. The iliopsoas tendon appears intact, without adjacent bursal fluid collections. The origin of the hamstring tendon demonstrates mild tendinosis. The tendons for the direct and indirect heads of the rectus femoris muscle appear intact. Labrum and cartilage: There is diffuse labral degeneration. Mild to moderate partial-thickness cartilage thinning is seen at the superior aspect of the hip with marginal osteophyte formation. There is normal morphology of the femoral head and acetabulum. Soft tissues: There is focal fluid signal at the origin of the right adductor longus muscle that is suspicious for partial tearing. Increased T2-weighted signal is seen throughout the right medial and anterior compartment musculature that is suspicious for chronic denervation changes. There is associated loss of muscle bulk. The remaining visualized muscles demonstrate normal bulk and internal signal. Quadratus femoris muscle demonstrates no internal edema to suggest ischiofemoral impingement. The proximal sciatic neurovascular bundle appears normal adjacent to the hamstring tendons. Pelvic soft tissues demonstrate no acute abnormality. IMPRESSION: 1. Mild to moderate left hip osteoarthrosis with partial thickness cartilage thinning and marginal osteophyte formation. Mild diffuse labral degeneration. 2. Mild distal gluteus medius and minimus tendinosis without definite tendon tearing. Mild proximal hamstring tendinosis. 3. Focal partial tearing of the contralateral right adductor longus muscle at its origin adjacent to the pubic symphysis. 4. Diffuse [id number] signal and atrophy within the right anterior and abductor compartment musculature, which is suspicious for chronic denervation changes. 5. Degenerative changes in the included spine. Approved by: Jeb Rodriguez M.D. on 06/11/2023 at 16:45
--- NOTE | 2023-06-11 11:13 | DI.RAD.S_ITS ---
PROCEDURE: XR KNEE RT 3V INDICATIONS: KNEE PAIN TECHNIQUE: 3 views of the knee were acquired. COMPARISON: None. FINDINGS: Bones: No fractures or dislocations. Osteochondroma of the medial femoral epicondyle. Tricompartmental joint space narrowing with associated osteophytosis. Soft tissues: Small joint effusion. No suspicious soft tissue calcifications. 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 If there is pain over this specific location, an MRI with contrast would be indicated to exclude sarcoma. Dictated by: Jefferson Obrien M.D. on 06/11/2023 at 13:45 Approved by: Jefferson Obrien M.D. on 06/11/2023 at 13:48
== END ==
PROVIDERS: Family Provider Family Medicine; PCP Family Medicine; Referring Provider Family Medicine; Visit Provider Family Medicine
DX: M17.11 Unilateral primary osteoarthritis, right knee (principal); M16.12 Unilateral primary osteoarthritis, left hip; S76.011A Strain of muscle, fascia and tendon of right hip, initial encounter; D16.21 Benign neoplasm of long bones of right lower limb; M25.552 Pain in left hip; M25.561 Pain in right knee; Z91.81 History of falling; Z86.69 Personal history of other diseases of the nervous system and sense organs
CPT/HCPCS: 73562; 73721

== ENCOUNTER → 2023-08-26 12:31 | Outpatient (CLI) | payer MEDICARE, OTHER, SELFPAY ==
--- NOTE | 2023-08-26 12:32 | DI.MG.S_ITS ---
BILATERAL DIGITAL SCREENING MAMMOGRAM 3D/2D WITH CAD: 08/26/2023 CLINICAL: Routine screening. Personal history of left breast cancer. Comparison is made to exams dated: 08/24/2022 mammogram, 08/19/2021 mammogram, and 10/04/2019 mammogram - [facility]. Both breasts are heterogeneously dense, which may obscure small masses (category c / 51-75% glandular tissue). Current study was also evaluated with a Computer Aided Detection (CAD) system. There are benign post operative findings in the left breast. No significant masses, calcifications, or other findings are seen in either breast. There has been no significant interval change. IMPRESSION: BENIGN There is no mammographic evidence of malignancy. A 1 year screening mammogram is recommended. This exam was interpreted at Station ID: [id number]. NOTE: For mammograms, a report in lay terms will be sent to the patient. Approximately 15% of breast malignancies will not be visualized mammographically. In the management of a palpable breast mass, a negative mammogram must not discourage biopsy of a clinically suspicious lesion. Electronically Signed By: Jasmina Basilio M.D., Ph.D. felipe/penrad:08/27/2023 02:02:25 letter sent: Normal Exam ACR BI-RADS Category 2: Benign Finding(s) [id number]
== END ==
LOC: MAMMO 12:32
PROVIDERS: Family Provider Family Medicine; PCP Family Medicine; Referring Provider Family Medicine; Visit Provider Family Medicine
DX: Z12.31 Encounter for screening mammogram for malignant neoplasm of breast (principal); Z85.3 Personal history of malignant neoplasm of breast
CPT/HCPCS: 77063; 77067

== ENCOUNTER 2024-01-21 10:45 | Outpatient (RCR) | payer MEDICARE, OTHER, SELFPAY ==
--- NOTE | 2023-05-05 16:00 | PT.OIE ---
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 [id number], [place], [address] Email: Physical Therapy Initial Evaluation PT-OP-A Visit Information Start: 05/05/23 15:26 Freq: Status: Active Protocol: Document 05/05/23 13:50 DCW (Rec: 05/05/23 15:48 DCW [id number]) Out-Patient Physical Therapy Visit Information Visit Information Visit Type Initial Evaluation Visit Start Time 13:50 Visit Stop Time 14:30 Visit Number 1 Number of EXECUTIVE CREATIVE DIRECTOR Visits 0 Evaluation Information Evaluation Date 05/05/23 PT-OP-B Current Condition Start: 05/05/23 15:26 Freq: Status: Active Protocol: Document 05/05/23 13:50 DCW (Rec: 05/05/23 15:48 DCW [id number]) Current Condition History of Current Condition Onset Date 12/31/22 Current Complaints R LE weakness, falls, neuromuscular dysfunction History of Current Condition Pt is a 73 year old female presenting with a complex recent medical history. Pt was brought to ED on 12/31/22 by EMS for nausea, vomiting, and generalized weakness. Was found to have cerebellar bleed and was transferred to [facility]. 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 Pt was at [facility] for 5 1/2 weeks, and then transferred to a rehab facility in [place] for another two months. Pt reports that at [facility], she was up walking around fairly well, but then developed severe nerve pain in her right leg. Found to have a large hematoma in her right low back/hip which ended up compressing right LE nerves. This resulted in loss of motor function and sensory imput from right leg. Pt admits she was miserable waiting for the pain to stop. Due to motor dysfunction in her right leg, was having increased difficulty walking, and spent her time in rehab in a wheelchair. Leg weakness resulted in two fals, both of which yusef her right knee. Pt has recently been working with home health, and is now doing well enough to progress to out-patient PT. Has been walking at home with a FWW, just obtained a 4WW, but not comfortable with it yet. Reports she can get herself to the kitchen, and furniture surf using the countertop and cabinets, and is able to dress and perform pericare independently. Still requires assistance with showering. Has friend helping as caregiver. Treatment Goals Patient/Caregiver Goals Pt's stated goals are to learn how to properly use 4WW, get right LE moving better, and walk on her own. PT-OP-C Subjective Start: 05/05/23 15:26 Freq: Status: Active Protocol: Document 05/05/23 13:50 DCW (Rec: 05/05/23 15:48 DCW [id number]) OP-PT Subjective Patient Comments Patient Comments Pt reports her continuing symptoms/complaints have little, if anything, to do with her AVM/cerebellar bleed, and are really all secondary to the R LE hematoma she developed, which resulted in nerve damage. PT-OP-E Functional Tests Start: 05/05/23 15:26 Freq: Status: Active Protocol: Document 05/05/23 13:50 DCW (Rec: 05/05/23 15:48 DCW [id number]) Functional Tests 2 Minute Walk Test Distance 174' Device Used FWW Comments 1.45 ft/sec 30 Second Sit to Stand Test Score x8 repetitions Comments UE use, left lateral shift PT-OP-G Mobility & Gait Start: 05/05/23 15:26 Freq: Status: Active Protocol: Document 05/05/23 13:50 DCW (Rec: 05/05/23 15:48 DCW [id number]) OP Mobility Evaluation Transfers Sit to Stand SBA /c FWW Bed to Chair Transfers SBA /c FWW Wheelchair Management Type of Wheelchair Manual Assessment Details Propells with B UEs OP Gait Assessment Gait Gait Assistance Required: Standby Assistance Distance (Feet) 174 Assistive Devices Assistive Device Gait Belt,Front Wheeled Walker Comments Gait Comments Pt uses momentum to advance right leg during swing phase due to absent quad control. Good foot clearance. PT-OP-H Neuro Start: 05/05/23 15:26 Freq: Status: Active Protocol: Document 05/05/23 13:50 DCW (Rec: 05/05/23 15:48 DCW [id number]) Sensation Evaluation Gross Sensation Gross Sensation Right LE Impaired Sensation Description Numbness,Tingling PT-OP-M Strength Start: 05/05/23 15:26 Freq: Status: Active Protocol: Document 05/05/23 13:50 DCW (Rec: 05/05/23 16:00 DCW [id number]) Hip Strength Hip Manual Muscle Testing Right Flexion (L2) 2+ Poor+ Extension (S1) 4- Good- Abduction 2 Poor Adduction 2 Poor Left Flexion (L2) 4+ Good+ Extension (S1) 4+ Good+ Abduction 4+ Good+ Adduction 4+ Good+ Knee Strength Knee Manual Muscle Testing Right Flexion (S2) 4 Good Extension (L3) 0 Zero Left Flexion (S2) 5 Normal Extension (L3) 5 Normal Ankle/Foot Strength Ankle and Foot Manual Muscle Testing Right Dorsiflexion (L4) 4 Good Plantarflexion (S1) 4 Good Left Dorsiflexion (L4) 4+ Good+ Plantarflexion (S1) 4+ Good+ PT-OP-T Assessment and Plan Start: 05/05/23 15:26 Freq: Status: Active Protocol: Document 05/05/23 13:50 DCW (Rec: 05/05/23 16:00 DCW [id number]) Physical Therapy Assessment Rehab Potential Rehabilitation Potential Fair Evaluation Complexity Number of Personal Factors/Comorbidities 3 or More Number of Body Systems Impaired 4 or More Clinical Presentation at Evaluation Unstable Impairments Impairments Balance,Functional Activities, Functional Mobility,Pain,ROM, Sensation,Soft Tissue Mobility ,Strength,Tone,Transfers Goals Three Impairment Pt currently demonstrating 0/5 MMT right quad Nursing Home Goal (LTG) Pt to exhibit 2-/5 MMT or greater of right quad in order to improve ability to limit knee buckling. LTG Duration 08/03/23 Two Impairment Pt ambulates 174' during Two Minute Walk Test using FWW Shipping Inspector Goal (LTG) Pt to exhibit ability to complete full 6MWT with no rest breaks using LRAD, ambulating >600' in order to demonstrate improve gait speed and activity tolerance LTG Duration 08/03/23 One Impairment Pt does not have an appropriate home exercise program Short Term Goal (STG) Pt to be independent and compliant with an appropriate HEP STG Duration 06/03/23 Assessment Summary Assessment Pt presents with signs and symptoms consistent with referring diagnosis. Pt myotomal pattern suggestive of L2-L3 nerve dysfunction, presenting as significant weakness in hip flexion and abd/adduction, as well as absent motor control of right quad/knee extension. Limits pt 's ability to stand and ambulate properly due to right knee buckling, and difficulty advancing right leg during swing phase. Pt should benefit from skilled therapy focusing on improving independent functional mobility with gait and transfers, trial of e-stim to promote quad motor contraction, hip and knee strengthening as possible, and improving activity tolerance. 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 Physical Therapy Plan Frequency and Duration Frequency of Treatment 2x/Week Plan of Care Start Date 05/05/23 Plan of Care End Date 08/03/23 Therapeutic Interventions Therapeutic Interventions Balance Training,Coordination Training,Gait Training,Home Exercise Program,Joint Mobilizations,Manual Therapy, Neuromuscular Re-education, Patient/Caregiver Education, Self-Care/Home Management, Sensory Integration,Soft Tissue Mobilization, Therapeutic Activities, Therapeutic Exercises Modalities Cold Pack/Ice Massage,Electric Stimulation,Hot Packs, Ultrasound Next Visit Focus/Plan Next Note Type Treatment Note Next Visit Plan Transfers, 4WW practice, gait/ balance training, trial of e- stim for quad contraction
--- NOTE | 2023-05-05 16:01 | PT.OPPOC ---
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, [place], [address] Email: Plan Of Care PT-OP-T Assessment and Plan Start: 05/05/23 15:26 Freq: Status: Active Protocol: Document 05/05/23 13:50 DCW (Rec: 05/05/23 16:00 DCW [id number]) Physical Therapy Assessment Rehab Potential Rehabilitation Potential Fair Evaluation Complexity Number of Personal Factors/Comorbidities 3 or More Number of Body Systems Impaired 4 or More Clinical Presentation at Evaluation Unstable Impairments Impairments Balance,Functional Activities, Functional Mobility,Pain,ROM, Sensation,Soft Tissue Mobility ,Strength,Tone,Transfers Goals Three Impairment Pt currently demonstrating 0/5 MMT right quad Alf Goal (LTG) Pt to exhibit 2-/5 MMT or greater of right quad in order to improve ability to limit knee buckling. LTG Duration 08/03/23 Two Impairment Pt ambulates 174' during Two Minute Walk Test using FWW Hip Hop Dance Instructor Goal (LTG) Pt to exhibit ability to complete full 6MWT with no rest breaks using LRAD, ambulating >600' in order to demonstrate improve gait speed and activity tolerance LTG Duration 08/03/23 One Impairment Pt does not have an appropriate home exercise program Short Term Goal (STG) Pt to be independent and compliant with an appropriate HEP STG Duration 06/03/23 Assessment Summary Assessment Pt presents with signs and symptoms consistent with referring diagnosis. Pt myotomal pattern suggestive of L2-L3 nerve dysfunction, presenting as significant weakness in hip flexion and abd/adduction, as well as absent motor control of right quad/knee extension. Limits pt 's ability to stand and ambulate properly due to right knee buckling, and difficulty advancing right leg during swing phase. Pt should benefit from skilled therapy focusing on improving independent functional mobility with gait and transfers, trial of e-stim to promote quad motor contraction, hip and knee strengthening as possible, and improving activity tolerance. 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 Physical Therapy Plan Frequency and Duration Frequency of Treatment 2x/Week Plan of Care Start Date 05/05/23 Plan of Care End Date 08/03/23 Therapeutic Interventions Therapeutic Interventions Balance Training,Coordination Training,Gait Training,Home Exercise Program,Joint Mobilizations,Manual Therapy, Neuromuscular Re-education, Patient/Caregiver Education, Self-Care/Home Management, Sensory Integration,Soft Tissue Mobilization, Therapeutic Activities, Therapeutic Exercises Modalities Cold Pack/Ice Massage,Electric Stimulation,Hot Packs, Ultrasound Next Visit Focus/Plan Next Note Type Treatment Note Next Visit Plan Transfers, 4WW practice, gait/ balance training, trial of e- stim for quad contraction Plan of Care Dates Plan of Care Start Date 05/05/23 Plan of Care End Date 08/03/23 Electronically Signed by: Romain Zuñiga, PT 05/05/23 9748 If you are in agreement with this Plan of Care, please return a signed and dated copy. I have reviewed this Plan of Care and certify that the skilled therapy services above are required to meet the patient?s needs. Physician Signature Date Printed Name and Credentials Clinical Instructor Signature Printed Name and Credentials
--- NOTE | 2023-05-10 14:43 | PT.OTN ---
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, right leg, subsequent encounter (05/10/23) Other specified postprocedural states (05/10/23) Physical Therapy Treatment Note PT-OP-A Visit Information Start: 05/05/23 15:26 Freq: Status: Active Protocol: Document 05/10/23 13:45 DCW (Rec: 05/10/23 14:43 DCW [id number]) Out-Patient Physical Therapy Visit Information Visit Information Visit Type Treatment Note Visit Start Time 13:45 Visit Stop Time 14:30 Visit Number 2 Number of DOWNSTREAM BIOMANUFACTURING TECHNICIAN Visits 0 Evaluation Information Evaluation Date 05/05/23 PT-OP-B Current Condition Start: 05/05/23 15:26 Freq: Status: Active Protocol: Document 05/05/23 13:50 DCW (Rec: 05/05/23 15:48 DCW [id number]) Current Condition History of Current Condition Onset Date 12/31/22 Current Complaints R LE weakness, falls, neuromuscular dysfunction History of Current Condition Pt is a 73 year old female presenting with a complex recent medical history. Pt was brought to ED on 12/31/22 by EMS for nausea, vomiting, and generalized weakness. Was found to have cerebellar bleed and was transferred to [facility]. 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 Pt was at [facility] for 5 1/2 weeks, and then transferred to a rehab facility in [place] for another two months. Pt reports that at [facility], she was up walking around fairly well, but then developed severe nerve pain in her right leg. Found to have a large hematoma in her right low back/hip which ended up compressing right LE nerves. This resulted in loss of motor function and sensory imput from right leg. Pt admits she was miserable waiting for the pain to stop. Due to motor dysfunction in her right leg, was having increased difficulty walking, and spent her time in rehab in a wheelchair. Leg weakness resulted in two fals, both of which yusef her right knee. Pt has recently been working with home health, and is now doing well enough to progress to out-patient PT. Has been walking at home with a FWW, just obtained a 4WW, but not comfortable with it yet. Reports she can get herself to the kitchen, and furniture surf using the countertop and cabinets, and is able to dress and perform pericare independently. Still requires assistance with showering. Has friend helping as caregiver. Treatment Goals Patient/Caregiver Goals Pt's stated goals are to learn how to properly use 4WW, get right LE moving better, and walk on her own. PT-OP-C Subjective Start: 05/05/23 15:26 Freq: Status: Active Protocol: Document 05/10/23 13:45 DCW (Rec: 05/10/23 14:43 DCW [id number]) OP-PT Subjective Patient Comments Patient Comments Pt reports she has been decreasing her Gabapentin, has not yet had any increase in nerve pain, other than a little zinger every now and then. PT-OP-E Functional Tests Start: 05/05/23 15:26 Freq: Status: Active Protocol: Document 05/05/23 13:50 DCW (Rec: 05/05/23 15:48 DCW [id number]) Functional Tests 2 Minute Walk Test Distance 174' Device Used FWW Comments 1.45 ft/sec 30 Second Sit to Stand Test Score x8 repetitions Comments UE use, left lateral shift PT-OP-G Mobility & Gait Start: 05/05/23 15:26 Freq: Status: Active Protocol: Document 05/05/23 13:50 DCW (Rec: 05/05/23 15:48 DCW [id number]) OP Mobility Evaluation Transfers Sit to Stand SBA /c FWW Bed to Chair Transfers SBA /c FWW Wheelchair Management Type of Wheelchair Manual Assessment Details Propells with B UEs OP Gait Assessment Gait Gait Assistance Required: Standby Assistance Distance (Feet) 174 Assistive Devices Assistive Device Gait Belt,Front Wheeled Walker Comments Gait Comments Pt uses momentum to advance right leg during swing phase due to absent quad control. Good foot clearance. PT-OP-H Neuro Start: 05/05/23 15:26 Freq: Status: Active Protocol: Document 05/05/23 13:50 DCW (Rec: 05/05/23 15:48 DCW [id number]) Sensation Evaluation Gross Sensation Gross Sensation Right LE Impaired Sensation Description Numbness,Tingling PT-OP-M Strength Start: 05/05/23 15:26 Freq: Status: Active Protocol: Document 05/05/23 13:50 DCW (Rec: 05/05/23 16:00 DCW [id number]) Hip Strength Hip Manual Muscle Testing Right Flexion (L2) 2+ Poor+ Extension (S1) 4- Good- Abduction 2 Poor Adduction 2 Poor Left Flexion (L2) 4+ Good+ Extension (S1) 4+ Good+ Abduction 4+ Good+ Adduction 4+ Good+ Knee Strength Knee Manual Muscle Testing Right Flexion (S2) 4 Good Extension (L3) 0 Zero Left Flexion (S2) 5 Normal Extension (L3) 5 Normal Ankle/Foot Strength Ankle and Foot Manual Muscle Testing Right Dorsiflexion (L4) 4 Good Plantarflexion (S1) 4 Good Left Dorsiflexion (L4) 4+ Good+ Plantarflexion (S1) 4+ Good+ PT-OP-Q Treatments Start: 05/05/23 15:26 Freq: Status: Active Protocol: Document 05/10/23 13:45 DCW (Rec: 05/10/23 14:43 DCW [id number]) Therapeutic Exercises Standing Exercises TKE Standing Exercise Name TKE Side right Resistance none Abduction Standing Exercise Name Hip Abduction Side bilateral Resistance 4# Equipment Used // bars Toe-taps Standing Exercise Name Toe-taps Side bilateral Resistance 4# Equipment Used 6 step Gait Training Gait Activity 4WW Description 4WW practice Comments VCs for brake use, keeping 4WW close to body, and handle height Neuro Re-Education Treatment Balance Activities Foam Stance Details NBOS Surface Blue Foam Equipment // bars Comments EO/EC Stride Stance Details Weight-shift fwd/bkwd Equipment // bars PT-OP-R Modalities Start: 05/10/23 13:44 Freq: Status: Active Protocol: Document 05/10/23 13:45 DCW (Rec: 05/10/23 14:43 DCW [id number]) Electric Stimulation Electric Stimulation Brazilian Stimulation Body Location R Quad Intensity 45->50 Frequency 4 on/12 off Ramp 2.0 Patient Position Sitting Comments Attempted LAQ during on phase PT-OP-T Assessment and Plan Start: 05/05/23 15:26 Freq: Status: Active Protocol: Document 05/10/23 13:45 DCW (Rec: 05/10/23 14:43 DCW [id number]) Physical Therapy Assessment Impairments Impairments Balance,Functional Activities, Functional Mobility,Pain,ROM, Sensation,Soft Tissue Mobility ,Strength,Tone,Transfers Goals Three Impairment Pt currently demonstrating 0/5 MMT right quad Big Data Engineer Goal (LTG) Pt to exhibit 2-/5 MMT or greater of right quad in order to improve ability to limit knee buckling. LTG Duration 08/03/23 Two Impairment Pt ambulates 174' during Two Minute Walk Test using FWW Big Data Engineer Goal (LTG) Pt to exhibit ability to complete full 6MWT with no rest breaks using LRAD, ambulating >600' in order to demonstrate improve gait speed and activity tolerance LTG Duration 08/03/23 One Impairment Pt does not have an appropriate home exercise program Short Term Goal (STG) Pt to be independent and compliant with an appropriate HEP STG Duration 06/03/23 Assessment Summary Assessment Brazilian e-stim trial not high enough intensity today for true quad contraction due to pt tolerance, but pt willing to attempt higher intensity next visit. Good response to activities, pt noted good difficulty with balance challenges. Physical Therapy Plan Frequency and Duration Frequency of Treatment 2x/Week Plan of Care Start Date 05/05/23 Plan of Care End Date 08/03/23 Therapeutic Interventions Therapeutic Interventions Balance Training,Coordination Training,Gait Training,Home Exercise Program,Joint Mobilizations,Manual Therapy, Neuromuscular Re-education, Patient/Caregiver Education, Self-Care/Home Management, Sensory Integration,Soft Tissue Mobilization, Therapeutic Activities, Therapeutic Exercises Modalities Cold Pack/Ice Massage,Electric Stimulation,Hot Packs, Ultrasound Next Visit Focus/Plan Next Note Type Treatment Note Next Visit Plan Transfers, 4WW practice, gait/ balance training, e-stim for quad contraction
--- NOTE | 2023-05-13 11:31 | PT.OTN ---
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, right leg, subsequent encounter (05/13/23) Other specified postprocedural states (05/13/23) Physical Therapy Treatment Note PT-OP-A Visit Information Start: 05/05/23 15:26 Freq: Status: Active Protocol: Document 05/13/23 10:30 DCW (Rec: 05/13/23 11:31 DCW [id number]) Out-Patient Physical Therapy Visit Information Visit Information Visit Type Treatment Note Visit Start Time 10:30 Visit Stop Time 11:15 Visit Number 3 Number of PRESIDENT AND CHIEF EXECUTIVE OFFICER Visits 0 Evaluation Information Evaluation Date 05/05/23 PT-OP-B Current Condition Start: 05/05/23 15:26 Freq: Status: Active Protocol: Document 05/05/23 13:50 DCW (Rec: 05/05/23 15:48 DCW [id number]) Current Condition History of Current Condition Onset Date 12/31/22 Current Complaints R LE weakness, falls, neuromuscular dysfunction History of Current Condition Pt is a 73 year old female presenting with a complex recent medical history. Pt was brought to ED on 12/31/22 by EMS for nausea, vomiting, and generalized weakness. Was found to have cerebellar bleed and was transferred to [facility]. 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 Pt was at [facility] for 5 1/2 weeks, and then transferred to a rehab facility in [place] for another two months. Pt reports that at [facility], she was up walking around fairly well, but then developed severe nerve pain in her right leg. Found to have a large hematoma in her right low back/hip which ended up compressing right LE nerves. This resulted in loss of motor function and sensory imput from right leg. Pt admits she was miserable waiting for the pain to stop. Due to motor dysfunction in her right leg, was having increased difficulty walking, and spent her time in rehab in a wheelchair. Leg weakness resulted in two fals, both of which yusef her right knee. Pt has recently been working with home health, and is now doing well enough to progress to out-patient PT. Has been walking at home with a FWW, just obtained a 4WW, but not comfortable with it yet. Reports she can get herself to the kitchen, and furniture surf using the countertop and cabinets, and is able to dress and perform pericare independently. Still requires assistance with showering. Has friend helping as caregiver. Treatment Goals Patient/Caregiver Goals Pt's stated goals are to learn how to properly use 4WW, get right LE moving better, and walk on her own. PT-OP-C Subjective Start: 05/05/23 15:26 Freq: Status: Active Protocol: Document 05/13/23 10:30 DCW (Rec: 05/13/23 11:31 DCW [id number]) OP-PT Subjective Patient Comments Patient Comments Noting less left hip pain recently. Does admit she had more nerve sensation/pain in her right leg after last visit , but that's probably a good thing, it's waking up a bit. PT-OP-E Functional Tests Start: 05/05/23 15:26 Freq: Status: Active Protocol: Document 05/05/23 13:50 DCW (Rec: 05/05/23 15:48 DCW [id number]) Functional Tests 2 Minute Walk Test Distance 174' Device Used FWW Comments 1.45 ft/sec 30 Second Sit to Stand Test Score x8 repetitions Comments UE use, left lateral shift PT-OP-G Mobility & Gait Start: 05/05/23 15:26 Freq: Status: Active Protocol: Document 05/05/23 13:50 DCW (Rec: 05/05/23 15:48 DCW [id number]) OP Mobility Evaluation Transfers Sit to Stand SBA /c FWW Bed to Chair Transfers SBA /c FWW Wheelchair Management Type of Wheelchair Manual Assessment Details Propells with B UEs OP Gait Assessment Gait Gait Assistance Required: Standby Assistance Distance (Feet) 174 Assistive Devices Assistive Device Gait Belt,Front Wheeled Walker Comments Gait Comments Pt uses momentum to advance right leg during swing phase due to absent quad control. Good foot clearance. PT-OP-H Neuro Start: 05/05/23 15:26 Freq: Status: Active Protocol: Document 05/05/23 13:50 DCW (Rec: 05/05/23 15:48 DCW [id number]) Sensation Evaluation Gross Sensation Gross Sensation Right LE Impaired Sensation Description Numbness,Tingling PT-OP-M Strength Start: 05/05/23 15:26 Freq: Status: Active Protocol: Document 05/05/23 13:50 DCW (Rec: 05/05/23 16:00 DCW [id number]) Hip Strength Hip Manual Muscle Testing Right Flexion (L2) 2+ Poor+ Extension (S1) 4- Good- Abduction 2 Poor Adduction 2 Poor Left Flexion (L2) 4+ Good+ Extension (S1) 4+ Good+ Abduction 4+ Good+ Adduction 4+ Good+ Knee Strength Knee Manual Muscle Testing Right Flexion (S2) 4 Good Extension (L3) 0 Zero Left Flexion (S2) 5 Normal Extension (L3) 5 Normal Ankle/Foot Strength Ankle and Foot Manual Muscle Testing Right Dorsiflexion (L4) 4 Good Plantarflexion (S1) 4 Good Left Dorsiflexion (L4) 4+ Good+ Plantarflexion (S1) 4+ Good+ PT-OP-Q Treatments Start: 05/05/23 15:26 Freq: Status: Active Protocol: Document 05/13/23 10:30 DCW (Rec: 05/13/23 11:31 DCW [id number]) Therapeutic Exercises Standing Exercises Hamstring Curls Standing Exercise Name HS curls Side bilateral Resistance 4# Toe-taps Standing Exercise Name Toe-taps Side bilateral Resistance 4# Equipment Used 6 step Other Exercises Step-ups Other Exercise Name Step-ups/step-downs Side right Equipment Used 2 step Resisted Ambulation Other Exercise Name Resisted side-stepping, forward c-stepping Side bilateral Resistance Green loop Neuro Re-Education Treatment Balance Activities Foam Stance Details NBOS Surface Blue Foam Equipment // bars Comments EO/EC PT-OP-R Modalities Start: 05/10/23 13:44 Freq: Status: Active Protocol: Document 05/13/23 10:30 DCW (Rec: 05/13/23 11:31 DCW [id number]) Electric Stimulation Electric Stimulation Trinidadian Stimulation Body Location R Quad Intensity 45->50 Frequency 4 on/12 off Ramp 2.0 Patient Position Sitting Comments Attempted LAQ during on phase PT-OP-T Assessment and Plan Start: 05/05/23 15:26 Freq: Status: Active Protocol: Document 05/13/23 10:30 DCW (Rec: 05/13/23 11:31 DCW [id number]) Physical Therapy Assessment Goals Three Impairment Pt currently demonstrating 0/5 MMT right quad Attendant Sales Goal (LTG) Pt to exhibit 2-/5 MMT or greater of right quad in order to improve ability to limit knee buckling. LTG Duration 08/03/23 Two Impairment Pt ambulates 174' during Two Minute Walk Test using FWW Skilled Nursing Goal (LTG) Pt to exhibit ability to complete full 6MWT with no rest breaks using LRAD, ambulating >600' in order to demonstrate improve gait speed and activity tolerance LTG Duration 08/03/23 One Impairment Pt does not have an appropriate home exercise program Short Term Goal (STG) Pt to be independent and compliant with an appropriate HEP STG Duration 06/03/23 Assessment Summary Assessment Better right quad response with functional mobility than with specific voluntary movement like attempting LAQ. Right knee does occasionally buckle, pt good with catching self with UE if something is available, but important to maintain close CGA in standing . Continue to focus on functional mobility, balance/ stability, quad contraction. Physical Therapy Plan Frequency and Duration Frequency of Treatment 2x/Week Plan of Care Start Date 05/05/23 Plan of Care End Date 08/03/23 Therapeutic Interventions Therapeutic Interventions Balance Training,Coordination Training,Gait Training,Home Exercise Program,Joint Mobilizations,Manual Therapy, Neuromuscular Re-education, Patient/Caregiver Education, Self-Care/Home Management, Sensory Integration,Soft Tissue Mobilization, Therapeutic Activities, Therapeutic Exercises Modalities Cold Pack/Ice Massage,Electric Stimulation,Hot Packs, Ultrasound Next Visit Focus/Plan Next Note Type Treatment Note Next Visit Plan Transfers, 4WW practice, gait/ balance training, e-stim for quad contraction
--- NOTE | 2023-05-17 13:45 | PT.OTN ---
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, right leg, subsequent encounter (05/17/23) Other specified postprocedural states (05/17/23) Physical Therapy Treatment Note PT-OP-A Visit Information Start: 05/05/23 15:26 Freq: Status: Active Protocol: Document 05/17/23 13:06 SP (Rec: 05/17/23 13:48 SP [id number]) Out-Patient Physical Therapy Visit Information Visit Information Visit Type Treatment Note Visit Start Time 13:06 Visit Stop Time 13:45 Visit Number 4 Number of CRANK HAND Visits 1 Evaluation Information Evaluation Date 05/05/23 PT-OP-B Current Condition Start: 05/05/23 15:26 Freq: Status: Active Protocol: Document 05/05/23 13:50 DCW (Rec: 05/05/23 15:48 DCW [id number]) Current Condition History of Current Condition Onset Date 12/31/22 Current Complaints R LE weakness, falls, neuromuscular dysfunction History of Current Condition Pt is a 73 year old female presenting with a complex recent medical history. Pt was brought to ED on 12/31/22 by EMS for nausea, vomiting, and generalized weakness. Was found to have cerebellar bleed and was transferred to [facility]. 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 Pt was at [facility] for 5 1/2 weeks, and then transferred to a rehab facility in [place] for another two months. Pt reports that at [facility], she was up walking around fairly well, but then developed severe nerve pain in her right leg. Found to have a large hematoma in her right low back/hip which ended up compressing right LE nerves. This resulted in loss of motor function and sensory imput from right leg. Pt admits she was miserable waiting for the pain to stop. Due to motor dysfunction in her right leg, was having increased difficulty walking, and spent her time in rehab in a wheelchair. Leg weakness resulted in two fals, both of which yusef her right knee. Pt has recently been working with home health, and is now doing well enough to progress to out-patient PT. Has been walking at home with a FWW, just obtained a 4WW, but not comfortable with it yet. Reports she can get herself to the kitchen, and furniture surf using the countertop and cabinets, and is able to dress and perform pericare independently. Still requires assistance with showering. Has friend helping as caregiver. Treatment Goals Patient/Caregiver Goals Pt's stated goals are to learn how to properly use 4WW, get right LE moving better, and walk on her own. PT-OP-C Subjective Start: 05/05/23 15:26 Freq: Status: Active Protocol: Document 05/17/23 13:06 SP (Rec: 05/17/23 13:48 SP [id number]) OP-PT Subjective Patient Comments Patient Comments Pt reports is able to dynamic swing RLE maybe little more quad activity but unable to lift lower leg front yet. PT-OP-E Functional Tests Start: 05/05/23 15:26 Freq: Status: Active Protocol: Document 05/05/23 13:50 DCW (Rec: 05/05/23 15:48 DCW [id number]) Functional Tests 2 Minute Walk Test Distance 174' Device Used FWW Comments 1.45 ft/sec 30 Second Sit to Stand Test Score x8 repetitions Comments UE use, left lateral shift PT-OP-G Mobility & Gait Start: 05/05/23 15:26 Freq: Status: Active Protocol: Document 05/05/23 13:50 DCW (Rec: 05/05/23 15:48 DCW [id number]) OP Mobility Evaluation Transfers Sit to Stand SBA /c FWW Bed to Chair Transfers SBA /c FWW Wheelchair Management Type of Wheelchair Manual Assessment Details Propells with B UEs OP Gait Assessment Gait Gait Assistance Required: Standby Assistance Distance (Feet) 174 Assistive Devices Assistive Device Gait Belt,Front Wheeled Walker Comments Gait Comments Pt uses momentum to advance right leg during swing phase due to absent quad control. Good foot clearance. PT-OP-H Neuro Start: 05/05/23 15:26 Freq: Status: Active Protocol: Document 05/05/23 13:50 DCW (Rec: 05/05/23 15:48 DCW [id number]) Sensation Evaluation Gross Sensation Gross Sensation Right LE Impaired Sensation Description Numbness,Tingling PT-OP-M Strength Start: 05/05/23 15:26 Freq: Status: Active Protocol: Document 05/05/23 13:50 DCW (Rec: 05/05/23 16:00 DCW [id number]) Hip Strength Hip Manual Muscle Testing Right Flexion (L2) 2+ Poor+ Extension (S1) 4- Good- Abduction 2 Poor Adduction 2 Poor Left Flexion (L2) 4+ Good+ Extension (S1) 4+ Good+ Abduction 4+ Good+ Adduction 4+ Good+ Knee Strength Knee Manual Muscle Testing Right Flexion (S2) 4 Good Extension (L3) 0 Zero Left Flexion (S2) 5 Normal Extension (L3) 5 Normal Ankle/Foot Strength Ankle and Foot Manual Muscle Testing Right Dorsiflexion (L4) 4 Good Plantarflexion (S1) 4 Good Left Dorsiflexion (L4) 4+ Good+ Plantarflexion (S1) 4+ Good+ PT-OP-Q Treatments Start: 05/05/23 15:26 Freq: Status: Active Protocol: Document 05/17/23 13:06 SP (Rec: 05/17/23 13:48 SP [id number]) Therapeutic Exercises Standing Exercises Hamstring Curls Standing Exercise Name HS curls Side bilateral Resistance 4# Toe-taps Standing Exercise Name Toe-taps Side bilateral Resistance 4# leg wt Equipment Used 4 step, 1 HR> no HR Reps/Minutes 10 reps, 5 reps slower pacing Comments cues for trunk over stance LE/ soft unlocked positioning Other Exercises Step-ups Other Exercise Name Step-ups/step-downs Side right Resistance AROM Equipment Used 2 step, B HR Mod/Max UE WB Reps/Minutes x5 reps Comments Pt very challenged RLE ascend heavy BUE support, R HR LLE asc/slow RLE ecc Gait Training Gait Activity FWW Device Used FWW Level of Assistance SBA Distance/Duration 340 ft fwd (wc trailing but didn't need), back stepping 20 ft Treatment Focus Soft R knee Comments 20 ft back stepping for function awareness, cues for sequencing FWW then each LE back stepping PT-OP-R Modalities Start: 05/10/23 13:44 Freq: Status: Active Protocol: Document 05/17/23 13:06 SP (Rec: 05/17/23 13:48 SP [id number]) Electric Stimulation Electric Stimulation Georgian Stimulation Body Location R Quad Intensity 45->50 Frequency 4 on/12 off Ramp 2.0 Patient Position Sitting Comments Attempted LAQ during on phase, ROSA PT-OP-T Assessment and Plan Start: 05/05/23 15:26 Freq: Status: Active Protocol: Document 05/17/23 13:06 SP (Rec: 05/17/23 13:48 SP [id number]) Physical Therapy Assessment Goals Three Impairment Pt currently demonstrating 0/5 MMT right quad Care Home Goal (LTG) Pt to exhibit 2-/5 MMT or greater of right quad in order to improve ability to limit knee buckling. LTG Duration 08/03/23 Two Impairment Pt ambulates 174' during Two Minute Walk Test using FWW [employer] Goal (LTG) Pt to exhibit ability to complete full 6MWT with no rest breaks using LRAD, ambulating >600' in order to demonstrate improve gait speed and activity tolerance LTG Duration 08/03/23 One Impairment Pt does not have an appropriate home exercise program Short Term Goal (STG) Pt to be independent and compliant with an appropriate HEP STG Duration 06/03/23 Assessment Summary Assessment Pt cuing for elongated posture slower eccentric pacing against resistance for progression strengthening. Pt would benefit from progression use of 4WW longer distances and trial SPC short distances. Physical Therapy Plan Frequency and Duration Frequency of Treatment 2x/Week Plan of Care Start Date 05/05/23 Plan of Care End Date 08/03/23 Therapeutic Interventions Therapeutic Interventions Balance Training,Coordination Training,Gait Training,Home Exercise Program,Joint Mobilizations,Manual Therapy, Neuromuscular Re-education, Patient/Caregiver Education, Self-Care/Home Management, Sensory Integration,Soft Tissue Mobilization, Therapeutic Activities, Therapeutic Exercises Modalities Cold Pack/Ice Massage,Electric Stimulation,Hot Packs, Ultrasound Next Visit Focus/Plan Next Note Type Treatment Note Next Visit Plan Transfers, 4WW practice, gait/ balance training, e-stim for quad contraction.
--- NOTE | 2023-05-20 13:46 | PT.OTN ---
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, right leg, subsequent encounter (05/20/23) Other specified postprocedural states (05/20/23) Physical Therapy Treatment Note PT-OP-A Visit Information Start: 05/05/23 15:26 Freq: Status: Active Protocol: Document 05/20/23 13:04 SP (Rec: 05/20/23 13:48 SP [id number]) Out-Patient Physical Therapy Visit Information Visit Information Visit Type Treatment Note Visit Start Time 13:04 Visit Stop Time 13:46 Visit Number 5 Number of LIBRARY SERVICES DEAN Visits 2 Evaluation Information Evaluation Date 05/05/23 PT-OP-B Current Condition Start: 05/05/23 15:26 Freq: Status: Active Protocol: Document 05/05/23 13:50 DCW (Rec: 05/05/23 15:48 DCW [id number]) Current Condition History of Current Condition Onset Date 12/31/22 Current Complaints R LE weakness, falls, neuromuscular dysfunction History of Current Condition Pt is a 73 year old female presenting with a complex recent medical history. Pt was brought to ED on 12/31/22 by EMS for nausea, vomiting, and generalized weakness. Was found to have cerebellar bleed and was transferred to [facility]. 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 Pt was at [facility] for 5 1/2 weeks, and then transferred to a rehab facility in [place] for another two months. Pt reports that at [facility], she was up walking around fairly well, but then developed severe nerve pain in her right leg. Found to have a large hematoma in her right low back/hip which ended up compressing right LE nerves. This resulted in loss of motor function and sensory imput from right leg. Pt admits she was miserable waiting for the pain to stop. Due to motor dysfunction in her right leg, was having increased difficulty walking, and spent her time in rehab in a wheelchair. Leg weakness resulted in two fals, both of which yusef her right knee. Pt has recently been working with home health, and is now doing well enough to progress to out-patient PT. Has been walking at home with a FWW, just obtained a 4WW, but not comfortable with it yet. Reports she can get herself to the kitchen, and furniture surf using the countertop and cabinets, and is able to dress and perform pericare independently. Still requires assistance with showering. Has friend helping as caregiver. Treatment Goals Patient/Caregiver Goals Pt's stated goals are to learn how to properly use 4WW, get right LE moving better, and walk on her own. PT-OP-C Subjective Start: 05/05/23 15:26 Freq: Status: Active Protocol: Document 05/20/23 13:04 SP (Rec: 05/20/23 13:48 SP [id number]) OP-PT Subjective Patient Comments Patient Comments Pt reported compliant with exercises but she only has 2 1LB leg wts and easy. She stated got her 4WW in but need put it together, hasn't use yet. PT-OP-E Functional Tests Start: 05/05/23 15:26 Freq: Status: Active Protocol: Document 05/05/23 13:50 DCW (Rec: 05/05/23 15:48 DCW [id number]) Functional Tests 2 Minute Walk Test Distance 174' Device Used FWW Comments 1.45 ft/sec 30 Second Sit to Stand Test Score x8 repetitions Comments UE use, left lateral shift PT-OP-G Mobility & Gait Start: 05/05/23 15:26 Freq: Status: Active Protocol: Document 05/05/23 13:50 DCW (Rec: 05/05/23 15:48 DCW [id number]) OP Mobility Evaluation Transfers Sit to Stand SBA /c FWW Bed to Chair Transfers SBA /c FWW Wheelchair Management Type of Wheelchair Manual Assessment Details Propells with B UEs OP Gait Assessment Gait Gait Assistance Required: Standby Assistance Distance (Feet) 174 Assistive Devices Assistive Device Gait Belt,Front Wheeled Walker Comments Gait Comments Pt uses momentum to advance right leg during swing phase due to absent quad control. Good foot clearance. PT-OP-H Neuro Start: 05/05/23 15:26 Freq: Status: Active Protocol: Document 05/05/23 13:50 DCW (Rec: 05/05/23 15:48 DCW [id number]) Sensation Evaluation Gross Sensation Gross Sensation Right LE Impaired Sensation Description Numbness,Tingling PT-OP-M Strength Start: 05/05/23 15:26 Freq: Status: Active Protocol: Document 05/05/23 13:50 DCW (Rec: 05/05/23 16:00 DCW [id number]) Hip Strength Hip Manual Muscle Testing Right Flexion (L2) 2+ Poor+ Extension (S1) 4- Good- Abduction 2 Poor Adduction 2 Poor Left Flexion (L2) 4+ Good+ Extension (S1) 4+ Good+ Abduction 4+ Good+ Adduction 4+ Good+ Knee Strength Knee Manual Muscle Testing Right Flexion (S2) 4 Good Extension (L3) 0 Zero Left Flexion (S2) 5 Normal Extension (L3) 5 Normal Ankle/Foot Strength Ankle and Foot Manual Muscle Testing Right Dorsiflexion (L4) 4 Good Plantarflexion (S1) 4 Good Left Dorsiflexion (L4) 4+ Good+ Plantarflexion (S1) 4+ Good+ PT-OP-Q Treatments Start: 05/05/23 15:26 Freq: Status: Active Protocol: Document 05/20/23 13:04 SP (Rec: 05/20/23 13:48 SP [id number]) Therapeutic Exercises Sitting Exercises knee extension slider Sitting Exercise Name cued medial knee /midline alignement Side right Equipment Used slider Reps/Minutes x15 Comments cued slower ext /c knee more adducted medially to midline / c space bwtn BLE hip ER gerard taps Sitting Exercise Name added to HEP (declined HO recheck next tx) Side bilateral Resistance L mid-upper gerard, R medial maleolli Reps/Minutes 5 reps x3 sets Comments cued L heel press floor, allows R foot lift Standing Exercises Hamstring Curls Standing Exercise Name HS curls Side bilateral Resistance 4# leg wt (has 2# at home) Equipment Used light contact rail Reps/Minutes 2x15 L, 2x10 R Comments cued elevated upper body Toe-taps Standing Exercise Name Toe-taps Side bilateral Resistance 5# leg wt Equipment Used 6 step, no HR Reps/Minutes 10 reps x2 slower pacing Comments cues for trunk over stance LE/ soft unlocked positioning Therapeutic Activity Therapeutic Activity transfers/sit on 4WW Name open space Reps/Minutes x4 reps Comments cues/ed for brake mgt sit/ stand, pivot light contact/not lean into 4WW due to did move slightly during pivot R. Cued marching steps COG over RAQUEL. Gait Training Gait Activity 4WW Description 4WW practice Level of Assistance SBA Surface tile/carpet Distance/Duration 340 ft Treatment Focus soft R knee quad fac WB, equal arsen, safe control pacing /c brake mgt Comments VCs for brake use pre sit/ stand and as needed for slower pacing, proximity body back legs of 4WW. PT-OP-R Modalities Start: 05/10/23 13:44 Freq: Status: Active Protocol: Document 05/17/23 13:06 SP (Rec: 05/17/23 13:48 SP [id number]) Electric Stimulation Electric Stimulation Welsh Stimulation Body Location R Quad Intensity 45->50 Frequency 4 on/12 off Ramp 2.0 Patient Position Sitting Comments Attempted LAQ during on phase, AAROM PT-OP-T Assessment and Plan Start: 05/05/23 15:26 Freq: Status: Active Protocol: Document 05/20/23 13:04 SP (Rec: 05/20/23 13:48 SP [id number]) Physical Therapy Assessment Goals Three Impairment Pt currently demonstrating 0/5 MMT right quad Fdc Goal (LTG) Pt to exhibit 2-/5 MMT or greater of right quad in order to improve ability to limit knee buckling. LTG Duration 08/03/23 Two Impairment Pt ambulates 174' during Two Minute Walk Test using FWW Fdc Goal (LTG) Pt to exhibit ability to complete full 6MWT with no rest breaks using LRAD, ambulating >600' in order to demonstrate improve gait speed and activity tolerance LTG Duration 08/03/23 One Impairment Pt does not have an appropriate home exercise program Short Term Goal (STG) Pt to be independent and compliant with an appropriate HEP STG Duration 06/03/23 Assessment Summary Assessment Pt improved R soft knee/ unlocked positioning during weighted step taps no UE support. Less stance time closer to even arsen gait /c 4WW, better understanding proper use. Pt improved hip flexion/adduction RLE gerard taps with LLE post cues for LLE heel press into floor and upright posturing. Physical Therapy Plan Frequency and Duration Frequency of Treatment 2x/Week Plan of Care Start Date 05/05/23 Plan of Care End Date 08/03/23 Therapeutic Interventions Therapeutic Interventions Balance Training,Coordination Training,Gait Training,Home Exercise Program,Joint Mobilizations,Manual Therapy, Neuromuscular Re-education, Patient/Caregiver Education, Self-Care/Home Management, Sensory Integration,Soft Tissue Mobilization, Therapeutic Activities, Therapeutic Exercises Modalities Cold Pack/Ice Massage,Electric Stimulation,Hot Packs, Ultrasound Next Visit Focus/Plan Next Note Type Treatment Note Next Visit Plan Transfers, 4WW practice, gait/ balance training, e-stim for quad contraction.
--- NOTE | 2023-05-24 14:28 | PT.OTN ---
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, right leg, subsequent encounter (05/24/23) Other specified postprocedural states (05/24/23) Physical Therapy Treatment Note PT-OP-A Visit Information Start: 05/05/23 15:26 Freq: Status: Active Protocol: Document 05/24/23 13:45 DCW (Rec: 05/24/23 14:28 DCW [id number]) Out-Patient Physical Therapy Visit Information Visit Information Visit Type Treatment Note Visit Start Time 13:45 Visit Stop Time 14:30 Visit Number 6 Number of BEAD CUTTER Visits 0 Evaluation Information Evaluation Date 05/05/23 PT-OP-B Current Condition Start: 05/05/23 15:26 Freq: Status: Active Protocol: Document 05/05/23 13:50 DCW (Rec: 05/05/23 15:48 DCW [id number]) Current Condition History of Current Condition Onset Date 12/31/22 Current Complaints R LE weakness, falls, neuromuscular dysfunction History of Current Condition Pt is a 73 year old female presenting with a complex recent medical history. Pt was brought to ED on 12/31/22 by EMS for nausea, vomiting, and generalized weakness. Was found to have cerebellar bleed and was transferred to [facility]. 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 Pt was at [facility] for 5 1/2 weeks, and then transferred to a rehab facility in [place] for another two months. Pt reports that at [facility], she was up walking around fairly well, but then developed severe nerve pain in her right leg. Found to have a large hematoma in her right low back/hip which ended up compressing right LE nerves. This resulted in loss of motor function and sensory imput from right leg. Pt admits she was miserable waiting for the pain to stop. Due to motor dysfunction in her right leg, was having increased difficulty walking, and spent her time in rehab in a wheelchair. Leg weakness resulted in two fals, both of which yusef her right knee. Pt has recently been working with home health, and is now doing well enough to progress to out-patient PT. Has been walking at home with a FWW, just obtained a 4WW, but not comfortable with it yet. Reports she can get herself to the kitchen, and furniture surf using the countertop and cabinets, and is able to dress and perform pericare independently. Still requires assistance with showering. Has friend helping as caregiver. Treatment Goals Patient/Caregiver Goals Pt's stated goals are to learn how to properly use 4WW, get right LE moving better, and walk on her own. PT-OP-C Subjective Start: 05/05/23 15:26 Freq: Status: Active Protocol: Document 05/24/23 13:45 DCW (Rec: 05/24/23 14:28 DCW [id number]) OP-PT Subjective Patient Comments Patient Comments I've been trying to use the walker more, like yesterday was all day, just staying out of the wheelchair. Does note she has had increased stinging in her right quad. PT-OP-E Functional Tests Start: 05/05/23 15:26 Freq: Status: Active Protocol: Document 05/05/23 13:50 DCW (Rec: 05/05/23 15:48 DCW [id number]) Functional Tests 2 Minute Walk Test Distance 174' Device Used FWW Comments 1.45 ft/sec 30 Second Sit to Stand Test Score x8 repetitions Comments UE use, left lateral shift PT-OP-G Mobility & Gait Start: 05/05/23 15:26 Freq: Status: Active Protocol: Document 05/05/23 13:50 DCW (Rec: 05/05/23 15:48 DCW [id number]) OP Mobility Evaluation Transfers Sit to Stand SBA /c FWW Bed to Chair Transfers SBA /c FWW Wheelchair Management Type of Wheelchair Manual Assessment Details Propells with B UEs OP Gait Assessment Gait Gait Assistance Required: Standby Assistance Distance (Feet) 174 Assistive Devices Assistive Device Gait Belt,Front Wheeled Walker Comments Gait Comments Pt uses momentum to advance right leg during swing phase due to absent quad control. Good foot clearance. PT-OP-H Neuro Start: 05/05/23 15:26 Freq: Status: Active Protocol: Document 05/05/23 13:50 DCW (Rec: 05/05/23 15:48 DCW [id number]) Sensation Evaluation Gross Sensation Gross Sensation Right LE Impaired Sensation Description Numbness,Tingling PT-OP-M Strength Start: 05/05/23 15:26 Freq: Status: Active Protocol: Document 05/05/23 13:50 DCW (Rec: 05/05/23 16:00 DCW [id number]) Hip Strength Hip Manual Muscle Testing Right Flexion (L2) 2+ Poor+ Extension (S1) 4- Good- Abduction 2 Poor Adduction 2 Poor Left Flexion (L2) 4+ Good+ Extension (S1) 4+ Good+ Abduction 4+ Good+ Adduction 4+ Good+ Knee Strength Knee Manual Muscle Testing Right Flexion (S2) 4 Good Extension (L3) 0 Zero Left Flexion (S2) 5 Normal Extension (L3) 5 Normal Ankle/Foot Strength Ankle and Foot Manual Muscle Testing Right Dorsiflexion (L4) 4 Good Plantarflexion (S1) 4 Good Left Dorsiflexion (L4) 4+ Good+ Plantarflexion (S1) 4+ Good+ PT-OP-Q Treatments Start: 05/05/23 15:26 Freq: Status: Active Protocol: Document 05/24/23 13:45 DCW (Rec: 05/24/23 14:28 DCW [id number]) Cardio Equipment Recumbent Elliptical ([employer]) Duration (Minutes) 5 Resistance 1 Seat Position 8 Other LEs only Gym Equipment Shuttle Recovery Bilateral Squats Resistance 50# (One new) Unilateral Squats Resistance 12# Reps/Time PT quad tapping for contraction Therapeutic Exercises Standing Exercises Hamstring Curls Standing Exercise Name HS curls Side bilateral Resistance 4# leg wt (has 2# at home) Equipment Used light contact rail Reps/Minutes 2x15 L, 2x10 R Comments cued elevated upper body Toe-taps Standing Exercise Name Toe-taps Side bilateral Resistance 4# leg wt Equipment Used 6 step, no HR Reps/Minutes 10 reps x2 slower pacing Comments cues for trunk over stance LE/ soft unlocked positioning Other Exercises Step-ups Other Exercise Name Step-ups/step-downs Side right Resistance AROM Equipment Used 4 step, B HR Mod/Max UE WB Reps/Minutes x5 reps Comments Pt very challenged RLE ascend heavy BUE support, R HR LLE asc/slow RLE ecc Neuro Re-Education Treatment Balance Activities Foam Stance Details NBOS Surface Blue Foam Equipment // bars Comments EO/EC Stride Stance Details Tandem Stance PT-OP-R Modalities Start: 05/10/23 13:44 Freq: Status: Active Protocol: Document 05/17/23 13:06 SP (Rec: 05/17/23 13:48 SP [id number]) Electric Stimulation Electric Stimulation Brazilian Stimulation Body Location R Quad Intensity 45->50 Frequency 4 on/12 off Ramp 2.0 Patient Position Sitting Comments Attempted LAQ during on phase, AAROM PT-OP-T Assessment and Plan Start: 05/05/23 15:26 Freq: Status: Active Protocol: Document 05/24/23 13:45 DCW (Rec: 05/24/23 14:28 DCW [id number]) Physical Therapy Assessment Impairments Impairments Balance,Functional Activities, Functional Mobility,Pain,ROM, Sensation,Soft Tissue Mobility ,Strength,Tone,Transfers Goals Three Impairment Pt currently demonstrating 0/5 MMT right quad Chcf Goal (LTG) Pt to exhibit 2-/5 MMT or greater of right quad in order to improve ability to limit knee buckling. LTG Duration 08/03/23 Two Impairment Pt ambulates 174' during Two Minute Walk Test using FWW Chcf Goal (LTG) Pt to exhibit ability to complete full 6MWT with no rest breaks using LRAD, ambulating >600' in order to demonstrate improve gait speed and activity tolerance LTG Duration 08/03/23 One Impairment Pt does not have an appropriate home exercise program Short Term Goal (STG) Pt to be independent and compliant with an appropriate HEP STG Duration 06/03/23 Assessment Summary Assessment Pt noted increased challenge with new activities, but felt it was beneficial. Showing some improvement in ability to contract quad muscle, slightly increased ability to perform LAW. Physical Therapy Plan Frequency and Duration Frequency of Treatment 2x/Week Plan of Care Start Date 05/05/23 Plan of Care End Date 08/03/23 Therapeutic Interventions Therapeutic Interventions Balance Training,Coordination Training,Gait Training,Home Exercise Program,Joint Mobilizations,Manual Therapy, Neuromuscular Re-education, Patient/Caregiver Education, Self-Care/Home Management, Sensory Integration,Soft Tissue Mobilization, Therapeutic Activities, Therapeutic Exercises Modalities Cold Pack/Ice Massage,Electric Stimulation,Hot Packs, Ultrasound Next Visit Focus/Plan Next Note Type Treatment Note Next Visit Plan Transfers, 4WW practice, gait/ balance training, e-stim for quad contraction.
--- NOTE | 2023-05-27 13:03 | PT.OTN ---
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 Visit Start Time 12:17 Visit Stop Time 13:03 Visit Number 7 Number of STAMPING MACHINE OPERATOR Visits 1 Evaluation Information Evaluation Date 05/05/23 PT-OP-B Current Condition Start: 05/05/23 15:26 Freq: Status: Active Protocol: Document 05/05/23 13:50 DCW (Rec: 05/05/23 15:48 DCW [id number]) Current Condition History of Current Condition Onset Date 12/31/22 Current Complaints R LE weakness, falls, neuromuscular dysfunction History of Current Condition Pt is a 73 year old female presenting with a complex recent medical history. Pt was brought to ED on 12/31/22 by EMS for nausea, vomiting, and generalized weakness. Was found to have cerebellar bleed and was transferred to [facility]. 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 Pt was at [facility] for 5 1/2 weeks, and then transferred to a rehab facility in [place] for another two months. Pt reports that at [facility], she was up walking around fairly well, but then developed severe nerve pain in her right leg. Found to have a large hematoma in her right low back/hip which ended up compressing right LE nerves. This resulted in loss of motor function and sensory imput from right leg. Pt admits she was miserable waiting for the pain to stop. Due to motor dysfunction in her right leg, was having increased difficulty walking, and spent her time in rehab in a wheelchair. Leg weakness resulted in two fals, both of which yusef her right knee. Pt has recently been working with home health, and is now doing well enough to progress to out-patient PT. Has been walking at home with a FWW, just obtained a 4WW, but not comfortable with it yet. Reports she can get herself to the kitchen, and furniture surf using the countertop and cabinets, and is able to dress and perform pericare independently. Still requires assistance with showering. Has friend helping as caregiver. Treatment Goals Patient/Caregiver Goals Pt's stated goals are to learn how to properly use 4WW, get right LE moving better, and walk on her own. PT-OP-C Subjective Start: 05/05/23 15:26 Freq: Status: Active Protocol: Document 05/27/23 12:17 SP (Rec: 05/27/23 13:05 SP [id number]) OP-PT Subjective Patient Comments Patient Comments Pt reports seeing small gains forward. Wants to progress in mobiltiy to return to house in [facility] in July. She states using 4WW more and w/c less. PT-OP-E Functional Tests Start: 05/05/23 15:26 Freq: Status: Active Protocol: Document 05/05/23 13:50 DCW (Rec: 05/05/23 15:48 DCW [id number]) Functional Tests 2 Minute Walk Test Distance 174' Device Used FWW Comments 1.45 ft/sec 30 Second Sit to Stand Test Score x8 repetitions Comments UE use, left lateral shift PT-OP-G Mobility & Gait Start: 05/05/23 15:26 Freq: Status: Active Protocol: Document 05/05/23 13:50 DCW (Rec: 05/05/23 15:48 DCW [id number]) OP Mobility Evaluation Transfers Sit to Stand SBA /c FWW Bed to Chair Transfers SBA /c FWW Wheelchair Management Type of Wheelchair Manual Assessment Details Propells with B UEs OP Gait Assessment Gait Gait Assistance Required: Standby Assistance Distance (Feet) 174 Assistive Devices Assistive Device Gait Belt,Front Wheeled Walker Comments Gait Comments Pt uses momentum to advance right leg during swing phase due to absent quad control. Good foot clearance. PT-OP-H Neuro Start: 05/05/23 15:26 Freq: Status: Active Protocol: Document 05/05/23 13:50 DCW (Rec: 05/05/23 15:48 DCW [id number]) Sensation Evaluation Gross Sensation Gross Sensation Right LE Impaired Sensation Description Numbness,Tingling PT-OP-M Strength Start: 05/05/23 15:26 Freq: Status: Active Protocol: Document 05/05/23 13:50 DCW (Rec: 05/05/23 16:00 DCW [id number]) Hip Strength Hip Manual Muscle Testing Right Flexion (L2) 2+ Poor+ Extension (S1) 4- Good- Abduction 2 Poor Adduction 2 Poor Left Flexion (L2) 4+ Good+ Extension (S1) 4+ Good+ Abduction 4+ Good+ Adduction 4+ Good+ Knee Strength Knee Manual Muscle Testing Right Flexion (S2) 4 Good Extension (L3) 0 Zero Left Flexion (S2) 5 Normal Extension (L3) 5 Normal Ankle/Foot Strength Ankle and Foot Manual Muscle Testing Right Dorsiflexion (L4) 4 Good Plantarflexion (S1) 4 Good Left Dorsiflexion (L4) 4+ Good+ Plantarflexion (S1) 4+ Good+ PT-OP-Q Treatments Start: 05/05/23 15:26 Freq: Status: Active Protocol: Document 05/27/23 12:17 SP (Rec: 05/27/23 13:05 SP [id number]) Cardio Equipment Recumbent Elliptical ([employer]) Duration (Minutes) 6 Resistance 4 Seat Position 6 Other LEs only Gym Equipment Shuttle Recovery Bilateral Squats Details light contact under R heel pos support (assist position on plateform) Resistance 50# (2 new) Reps/Time x15 reps - cue not lock knee- good Unilateral Squats Details mid range AROM, tactile cue quad tapping, ed not lock knee Resistance 12# R, 37 # left (navy) Reps/Time 8 R, 10 L Therapeutic Exercises Sitting Exercises STS Sitting Exercise Name from 4WW Resistance AROM (approx 20 height) Equipment Used arms across chest eccentric sit, Light LUE on seat asc Reps/Minutes 5 reps Comments cued slow descend and wt shift stand, awareness not allow push on 4WW safet Standing Exercises Hamstring Curls Standing Exercise Name HS curls Side bilateral Resistance 4# leg wt (5# leg wt next tx) Equipment Used light contact rail Reps/Minutes 2x15 Comments cued elevated upper body, improved R hip less QL compensations Toe-taps Standing Exercise Name Toe-taps Side bilateral Resistance 4# leg wt Equipment Used 6 step, light dorsal contact BUEs during R LE stance time Reps/Minutes 10 reps x2 Comments cued core midline stab, slower pacing Other Exercises Resisted Ambulation Other Exercise Name Resisted side-stepping, forward c-stepping Side bilateral Resistance [place] loop #3 at mid gerard (added for home) Reps/Minutes 15 ft x2 laps Comments improved soft R knee, cued L foot clearance Therapeutic Activity Therapeutic Activity transfers/sit on 4WW Name open space and at wall Reps/Minutes x4 reps Comments cues/ed for brake mgt sit/ stand, pivot light contact 4WW marching step. Gait Training Gait Activity 4WW Description 4WW Level of Assistance arms distant SBA Surface tile/carpet Distance/Duration 170 ft x2 ft between ther ex transition activities Treatment Focus soft R knee quad fac WB, equal arsen, safe control pacing /c brake mgt Comments Improved R knee soft midstance time cued heel toe strike, no unsteadiness or buckle. Cued limit WB on handles needed only, does little more during RLE wB for safety. Self-Care/Home Management Treatment Education Other Education Ed put 4WW together, more use 4WW in home, short distances in public, w/c as needed longer distances. PT-OP-R Modalities Start: 05/10/23 13:44 Freq: Status: Active Protocol: Document 05/17/23 13:06 SP (Rec: 05/17/23 13:48 SP [id number]) Electric Stimulation Electric Stimulation Guine[place] Stimulation Body Location R Quad Intensity 45->50 Frequency 4 on/12 off Ramp 2.0 Patient Position Sitting Comments Attempted LAQ during on phase, AAROM PT-OP-T Assessment and Plan Start: 05/05/23 15:26 Freq: Status: Active Protocol: Document 05/27/23 12:17 SP (Rec: 05/27/23 13:05 SP [id number]) Physical Therapy Assessment Goals Three Impairment Pt currently demonstrating 0/5 MMT right quad Bench Grinder Goal (LTG) Pt to exhibit 2-/5 MMT or greater of right quad in order to improve ability to limit knee buckling. LTG Duration 08/03/23 Two Impairment Pt ambulates 174' during Two Minute Walk Test using FWW Bench Grinder Goal (LTG) Pt to exhibit ability to complete full 6MWT with no rest breaks using LRAD, ambulating >600' in order to demonstrate improve gait speed and activity tolerance LTG Duration 08/03/23 One Impairment Pt does not have an appropriate home exercise program Short Term Goal (STG) Pt to be independent and compliant with an appropriate HEP STG Duration 06/03/23 Assessment Summary Assessment Pt shown great gains in R knee stability during all activities during fairly heavy conversation, she does state has focus on knee extension during RLE WB. Demonstrated only need light contact 15% at pt wrist during weighted receiprocal step taps, improve RLE midstance time during LLE repositioning. Encouraged pt' s put together her new 4WW and start using at home more, w/c longer distances and entering PT next tx. Good stability gait use 4WW WB into RLE without unsteadiness this tx able to decrease to arms distance SBA and pt lessening BUE WB pressure on 4WW, receiprocal stepping. Physical Therapy Plan Frequency and Duration Frequency of Treatment 2x/Week Plan of Care Start Date 05/05/23 Plan of Care End Date 08/03/23 Therapeutic Interventions Therapeutic Interventions Balance Training,Coordination Training,Gait Training,Home Exercise Program,Joint Mobilizations,Manual Therapy, Neuromuscular Re-education, Patient/Caregiver Education, Self-Care/Home Management, Sensory Integration,Soft Tissue Mobilization, Therapeutic Activities, Therapeutic Exercises Modalities Cold Pack/Ice Massage,Electric Stimulation,Hot Packs, Ultrasound Next Visit Focus/Plan Next Note Type Treatment Note Next Visit Plan Check proper fit of personal 4WW next tx. Continue functional RLE strengthening. POC: Transfers, 4WW practice, gait/balance training, e-stim for quad contraction.
--- NOTE | 2023-05-31 16:10 | PT.OTN ---
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 Visit Start Time 15:15 Visit Stop Time 16:00 Visit Number 8 Number of ELECTRO MECHANICAL SOLAR TECHNICIAN Visits 0 Evaluation Information Evaluation Date 05/05/23 PT-OP-B Current Condition Start: 05/05/23 15:26 Freq: Status: Active Protocol: Document 05/05/23 13:50 DCW (Rec: 05/05/23 15:48 DCW [id number]) Current Condition History of Current Condition Onset Date 12/31/22 Current Complaints R LE weakness, falls, neuromuscular dysfunction History of Current Condition Pt is a 73 year old female presenting with a complex recent medical history. Pt was brought to ED on 12/31/22 by EMS for nausea, vomiting, and generalized weakness. Was found to have cerebellar bleed and was transferred to [facility]. 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 Pt was at [facility] for 5 1/2 weeks, and then transferred to a rehab facility in [place] for another two months. Pt reports that at [facility], she was up walking around fairly well, but then developed severe nerve pain in her right leg. Found to have a large hematoma in her right low back/hip which ended up compressing right LE nerves. This resulted in loss of motor function and sensory imput from right leg. Pt admits she was miserable waiting for the pain to stop. Due to motor dysfunction in her right leg, was having increased difficulty walking, and spent her time in rehab in a wheelchair. Leg weakness resulted in two fals, both of which yusef her right knee. Pt has recently been working with home health, and is now doing well enough to progress to out-patient PT. Has been walking at home with a FWW, just obtained a 4WW, but not comfortable with it yet. Reports she can get herself to the kitchen, and furniture surf using the countertop and cabinets, and is able to dress and perform pericare independently. Still requires assistance with showering. Has friend helping as caregiver. Treatment Goals Patient/Caregiver Goals Pt's stated goals are to learn how to properly use 4WW, get right LE moving better, and walk on her own. PT-OP-C Subjective Start: 05/05/23 15:26 Freq: Status: Active Protocol: Document 05/31/23 15:15 DCW (Rec: 05/31/23 16:09 DCW [id number]) OP-PT Subjective Patient Comments Patient Comments Pt reports this past Wednesday, she had a visit with a friend , and spend three hours standing making jewelry. Since that time, she has had pain and inflammation in her right Achilles. Knee has not been buckling as often, only one today, none the last few days. PT-OP-E Functional Tests Start: 05/05/23 15:26 Freq: Status: Active Protocol: Document 05/05/23 13:50 DCW (Rec: 05/05/23 15:48 DCW [id number]) Functional Tests 2 Minute Walk Test Distance 174' Device Used FWW Comments 1.45 ft/sec 30 Second Sit to Stand Test Score x8 repetitions Comments UE use, left lateral shift PT-OP-G Mobility & Gait Start: 05/05/23 15:26 Freq: Status: Active Protocol: Document 05/05/23 13:50 DCW (Rec: 05/05/23 15:48 DCW [id number]) OP Mobility Evaluation Transfers Sit to Stand SBA /c FWW Bed to Chair Transfers SBA /c FWW Wheelchair Management Type of Wheelchair Manual Assessment Details Propells with B UEs OP Gait Assessment Gait Gait Assistance Required: Standby Assistance Distance (Feet) 174 Assistive Devices Assistive Device Gait Belt,Front Wheeled Walker Comments Gait Comments Pt uses momentum to advance right leg during swing phase due to absent quad control. Good foot clearance. PT-OP-H Neuro Start: 05/05/23 15:26 Freq: Status: Active Protocol: Document 05/05/23 13:50 DCW (Rec: 05/05/23 15:48 DCW [id number]) Sensation Evaluation Gross Sensation Gross Sensation Right LE Impaired Sensation Description Numbness,Tingling PT-OP-M Strength Start: 05/05/23 15:26 Freq: Status: Active Protocol: Document 05/05/23 13:50 DCW (Rec: 05/05/23 16:00 DCW [id number]) Hip Strength Hip Manual Muscle Testing Right Flexion (L2) 2+ Poor+ Extension (S1) 4- Good- Abduction 2 Poor Adduction 2 Poor Left Flexion (L2) 4+ Good+ Extension (S1) 4+ Good+ Abduction 4+ Good+ Adduction 4+ Good+ Knee Strength Knee Manual Muscle Testing Right Flexion (S2) 4 Good Extension (L3) 0 Zero Left Flexion (S2) 5 Normal Extension (L3) 5 Normal Ankle/Foot Strength Ankle and Foot Manual Muscle Testing Right Dorsiflexion (L4) 4 Good Plantarflexion (S1) 4 Good Left Dorsiflexion (L4) 4+ Good+ Plantarflexion (S1) 4+ Good+ PT-OP-Q Treatments Start: 05/05/23 15:26 Freq: Status: Active Protocol: Document 05/31/23 15:15 DCW (Rec: 05/31/23 16:09 DCW [id number]) Cardio Equipment Recumbent Elliptical (BiodSitScape) Duration (Minutes) 6 Resistance 4 Seat Position 6 Other LEs only Gym Equipment Shuttle Recovery Bilateral Squats Resistance 50# (One new) Shuttle Recovery Platform Unstable Unilateral Squats Resistance 12# Therapeutic Exercises Other Exercises Step-ups Other Exercise Name Step-ups Side right Resistance AROM Equipment Used 4 step, B HR Mod/Max UE WB Reps/Minutes x15 Neuro Re-Education Treatment Balance Activities Tilt board Comments DF/PF, Lateral Foam Stance Details NBOS Surface AirEx Equipment // bars Comments EO/EC, Weight shift PT-OP-R Modalities Start: 05/10/23 13:44 Freq: Status: Active Protocol: Document 05/17/23 13:06 SP (Rec: 05/17/23 13:48 SP [id number]) Electric Stimulation Electric Stimulation [place] Stimulation Body Location R Quad Intensity 45->50 Frequency 4 on/12 off Ramp 2.0 Patient Position Sitting Comments Attempted LAQ during on phase, AAROM PT-OP-T Assessment and Plan Start: 05/05/23 15:26 Freq: Status: Active Protocol: Document 05/31/23 15:15 DCW (Rec: 05/31/23 16:09 DCW [id number]) Physical Therapy Assessment Impairments Impairments Balance,Functional Activities, Functional Mobility,Pain,ROM, Sensation,Soft Tissue Mobility ,Strength,Tone,Transfers Goals Three Impairment Pt currently demonstrating 0/5 MMT right quad Usp Goal (LTG) Pt to exhibit 2-/5 MMT or greater of right quad in order to improve ability to limit knee buckling. LTG Duration 08/03/23 Two Impairment Pt ambulates 174' during Two Minute Walk Test using FWW Attending Physician Goal (LTG) Pt to exhibit ability to complete full 6MWT with no rest breaks using LRAD, ambulating >600' in order to demonstrate improve gait speed and activity tolerance LTG Duration 08/03/23 One Impairment Pt does not have an appropriate home exercise program Short Term Goal (STG) Pt to be independent and compliant with an appropriate HEP STG Duration 06/03/23 Assessment Summary Assessment Improvement with quad control on leg press, still struggles significantly with just performing LAQ. Doing better with 4WW use, no instances of knee buckling today. Recommended ice/compression on sore Achilles. Physical Therapy Plan Frequency and Duration Frequency of Treatment 2x/Week Plan of Care Start Date 05/05/23 Plan of Care End Date 08/03/23 Therapeutic Interventions Therapeutic Interventions Balance Training,Coordination Training,Gait Training,Home Exercise Program,Joint Mobilizations,Manual Therapy, Neuromuscular Re-education, Patient/Caregiver Education, Self-Care/Home Management, Sensory Integration,Soft Tissue Mobilization, Therapeutic Activities, Therapeutic Exercises Modalities Cold Pack/Ice Massage,Electric Stimulation,Hot Packs, Ultrasound Next Visit Focus/Plan Next Note Type Treatment Note Next Visit Plan Check proper fit of personal 4WW next tx. Continue functional RLE strengthening. POC: Transfers, 4WW practice, gait/balance training, e-stim for quad contraction.
--- NOTE | 2023-06-03 11:15 | PT.OTN ---
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 Visit Start Time 10:30 Visit Stop Time 11:15 Visit Number 9 Number of DECORATING SUPERVISOR Visits 0 Evaluation Information Evaluation Date 05/05/23 PT-OP-B Current Condition Start: 05/05/23 15:26 Freq: Status: Active Protocol: Document 05/05/23 13:50 DCW (Rec: 05/05/23 15:48 DCW [id number]) Current Condition History of Current Condition Onset Date 12/31/22 Current Complaints R LE weakness, falls, neuromuscular dysfunction History of Current Condition Pt is a 73 year old female presenting with a complex recent medical history. Pt was brought to ED on 12/31/22 by EMS for nausea, vomiting, and generalized weakness. Was found to have cerebellar bleed and was transferred to [facility]. 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 Pt was at [facility] for 5 1/2 weeks, and then transferred to a rehab facility in [place] for another two months. Pt reports that at [facility], she was up walking around fairly well, but then developed severe nerve pain in her right leg. Found to have a large hematoma in her right low back/hip which ended up compressing right LE nerves. This resulted in loss of motor function and sensory imput from right leg. Pt admits she was miserable waiting for the pain to stop. Due to motor dysfunction in her right leg, was having increased difficulty walking, and spent her time in rehab in a wheelchair. Leg weakness resulted in two fals, both of which yusef her right knee. Pt has recently been working with home health, and is now doing well enough to progress to out-patient PT. Has been walking at home with a FWW, just obtained a 4WW, but not comfortable with it yet. Reports she can get herself to the kitchen, and furniture surf using the countertop and cabinets, and is able to dress and perform pericare independently. Still requires assistance with showering. Has friend helping as caregiver. Treatment Goals Patient/Caregiver Goals Pt's stated goals are to learn how to properly use 4WW, get right LE moving better, and walk on her own. PT-OP-C Subjective Start: 05/05/23 15:26 Freq: Status: Active Protocol: Document 06/03/23 10:30 DCW (Rec: 06/03/23 11:14 DCW [id number]) OP-PT Subjective Patient Comments Patient Comments Pt notes her Achilles pain is lingering, but is feeling better. PT-OP-E Functional Tests Start: 05/05/23 15:26 Freq: Status: Active Protocol: Document 06/03/23 10:30 DCW (Rec: 06/03/23 10:42 DCW [id number]) Functional Tests 2 Minute Walk Test Distance 232' Device Used 4WW Comments 1.93 ft/sec 30 Second Sit to Stand Test Score x10 repetitions Comments UE use PT-OP-G Mobility & Gait Start: 05/05/23 15:26 Freq: Status: Active Protocol: Document 05/05/23 13:50 DCW (Rec: 05/05/23 15:48 DCW [id number]) OP Mobility Evaluation Transfers Sit to Stand SBA /c FWW Bed to Chair Transfers SBA /c FWW Wheelchair Management Type of Wheelchair Manual Assessment Details Propells with B UEs OP Gait Assessment Gait Gait Assistance Required: Standby Assistance Distance (Feet) 174 Assistive Devices Assistive Device Gait Belt,Front Wheeled Walker Comments Gait Comments Pt uses momentum to advance right leg during swing phase due to absent quad control. Good foot clearance. PT-OP-H Neuro Start: 05/05/23 15:26 Freq: Status: Active Protocol: Document 05/05/23 13:50 DCW (Rec: 05/05/23 15:48 DCW [id number]) Sensation Evaluation Gross Sensation Gross Sensation Right LE Impaired Sensation Description Numbness,Tingling PT-OP-M Strength Start: 05/05/23 15:26 Freq: Status: Active Protocol: Document 05/05/23 13:50 DCW (Rec: 05/05/23 16:00 DCW [id number]) Hip Strength Hip Manual Muscle Testing Right Flexion (L2) 2+ Poor+ Extension (S1) 4- Good- Abduction 2 Poor Adduction 2 Poor Left Flexion (L2) 4+ Good+ Extension (S1) 4+ Good+ Abduction 4+ Good+ Adduction 4+ Good+ Knee Strength Knee Manual Muscle Testing Right Flexion (S2) 4 Good Extension (L3) 0 Zero Left Flexion (S2) 5 Normal Extension (L3) 5 Normal Ankle/Foot Strength Ankle and Foot Manual Muscle Testing Right Dorsiflexion (L4) 4 Good Plantarflexion (S1) 4 Good Left Dorsiflexion (L4) 4+ Good+ Plantarflexion (S1) 4+ Good+ PT-OP-Q Treatments Start: 05/05/23 15:26 Freq: Status: Active Protocol: Document 06/03/23 10:30 DCW (Rec: 06/03/23 11:14 DCW [id number]) Cardio Equipment Recumbent Elliptical (PillGuard) Duration (Minutes) 6 Resistance 5 Seat Position 6 Other LEs only Gym Equipment Shuttle Recovery Bilateral Squats Resistance 50# (One new) Shuttle Recovery Platform Stable Unilateral Squats Resistance 12# Therapeutic Exercises Sitting Exercises LAQ Sitting Exercise Name Active attempts at LAQ Side right STS Sitting Exercise Name from chair Equipment Used Light LUE on seat Neuro Re-Education Treatment Balance Activities Tandem Details Tandem Stance Equipment // bars Foam Stance Details NBOS Surface Double stacked AirEx Equipment // bars Comments EO/EC PT-OP-R Modalities Start: 05/10/23 13:44 Freq: Status: Active Protocol: Document 05/17/23 13:06 SP (Rec: 05/17/23 13:48 SP [id number]) Electric Stimulation Electric Stimulation Chinese Stimulation Body Location R Quad Intensity 45->50 Frequency 4 on/12 off Ramp 2.0 Patient Position Sitting Comments Attempted LAQ during on phase, AAROM PT-OP-T Assessment and Plan Start: 05/05/23 15:26 Freq: Status: Active Protocol: Document 06/03/23 10:30 DCW (Rec: 06/03/23 11:14 DCW [id number]) Physical Therapy Assessment Impairments Impairments Balance,Functional Activities, Functional Mobility,Pain,ROM, Sensation,Soft Tissue Mobility ,Strength,Tone,Transfers Goals Three Impairment Pt currently demonstrating 0/5 MMT right quad Mcfp Goal (LTG) Pt to exhibit 2-/5 MMT or greater of right quad in order to improve ability to limit knee buckling. LTG Duration 08/03/23 Two Impairment Pt ambulates 174' during Two Minute Walk Test using FWW Mcfp Goal (LTG) Pt to exhibit ability to complete full 6MWT with no rest breaks using LRAD, ambulating >600' in order to demonstrate improve gait speed and activity tolerance LTG Duration 08/03/23 One Impairment Pt does not have an appropriate home exercise program Short Term Goal (STG) Pt to be independent and compliant with an appropriate HEP STG Duration 07/02/23 - improving Assessment Summary Assessment Pt continues to demonstrate improving right quad contraction. 2MWT improved ~60 feet, performed 2 more repetitions during 30 sit to stand. Significant improvements in quality of gait using 4WW. Continue to focus on balance, gait, LE strength, and functional mobility. Physical Therapy Plan Frequency and Duration Frequency of Treatment 2x/Week Plan of Care Start Date 05/05/23 Plan of Care End Date 08/03/23 Therapeutic Interventions Therapeutic Interventions Balance Training,Coordination Training,Gait Training,Home Exercise Program,Joint Mobilizations,Manual Therapy, Neuromuscular Re-education, Patient/Caregiver Education, Self-Care/Home Management, Sensory Integration,Soft Tissue Mobilization, Therapeutic Activities, Therapeutic Exercises Modalities Cold Pack/Ice Massage,Electric Stimulation,Hot Packs, Ultrasound Next Visit Focus/Plan Next Note Type Treatment Note Next Visit Plan Continue functional RLE strengthening. POC: Transfers, 4WW practice, gait/balance training, e-stim for quad contraction.
--- NOTE | 2023-06-07 13:13 | PT.OTN ---
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, right leg, subsequent encounter (06/07/23) Other specified postprocedural states (06/07/23) Physical Therapy Treatment Note PT-OP-A Visit Information Start: 05/05/23 15:26 Freq: Status: Active Protocol: Document 06/07/23 08:12 AB (Rec: 06/07/23 08:17 AB [id number]) Out-Patient Physical Therapy Visit Information Visit Information Visit Type Treatment Note Visit Note PN due 19th visit Visit Start Time 11:38 Visit Stop Time 12:18 Visit Number 10 Number of CRUISE DIRECTOR Visits 1 PT-OP-B Current Condition Start: 05/05/23 15:26 Freq: Status: Active Protocol: Document 05/05/23 13:50 DCW (Rec: 05/05/23 15:48 DCW [id number]) Current Condition History of Current Condition Onset Date 12/31/22 Current Complaints R LE weakness, falls, neuromuscular dysfunction History of Current Condition Pt is a 73 year old female presenting with a complex recent medical history. Pt was brought to ED on 12/31/22 by EMS for nausea, vomiting, and generalized weakness. Was found to have cerebellar bleed and was transferred to [facility]. 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 Pt was at [facility] for 5 1/2 weeks, and then transferred to a rehab facility in [place] for another two months. Pt reports that at [facility], she was up walking around fairly well, but then developed severe nerve pain in her right leg. Found to have a large hematoma in her right low back/hip which ended up compressing right LE nerves. This resulted in loss of motor function and sensory imput from right leg. Pt admits she was miserable waiting for the pain to stop. Due to motor dysfunction in her right leg, was having increased difficulty walking, and spent her time in rehab in a wheelchair. Leg weakness resulted in two fals, both of which yusef her right knee. Pt has recently been working with home health, and is now doing well enough to progress to out-patient PT. Has been walking at home with a FWW, just obtained a 4WW, but not comfortable with it yet. Reports she can get herself to the kitchen, and furniture surf using the countertop and cabinets, and is able to dress and perform pericare independently. Still requires assistance with showering. Has friend helping as caregiver. Treatment Goals Patient/Caregiver Goals Pt's stated goals are to learn how to properly use 4WW, get right LE moving better, and walk on her own. PT-OP-C Subjective Start: 05/05/23 15:26 Freq: Status: Active Protocol: Document 06/07/23 08:12 AB (Rec: 06/07/23 12:56 AB [id number]) OP-PT Subjective Patient Comments Patient Comments Patient reports achilles is no longer painful, comments the right knee is stiff. Decreased quad activation noted right LE, when compared to left noted large red are left LE medial LE, Lanette reports she is having blood work today, due to this red area, as she is on blood thinners. PT-OP-E Functional Tests Start: 05/05/23 15:26 Freq: Status: Active Protocol: Document 06/03/23 10:30 DCW (Rec: 06/03/23 10:42 DCW [id number]) Functional Tests 2 Minute Walk Test Distance 232' Device Used 4WW Comments 1.93 ft/sec 30 Second Sit to Stand Test Score x10 repetitions Comments UE use PT-OP-G Mobility & Gait Start: 05/05/23 15:26 Freq: Status: Active Protocol: Document 05/05/23 13:50 DCW (Rec: 05/05/23 15:48 DCW [id number]) OP Mobility Evaluation Transfers Sit to Stand SBA /c FWW Bed to Chair Transfers SBA /c FWW Wheelchair Management Type of Wheelchair Manual Assessment Details Propells with B UEs OP Gait Assessment Gait Gait Assistance Required: Standby Assistance Distance (Feet) 174 Assistive Devices Assistive Device Gait Belt,Front Wheeled Walker Comments Gait Comments Pt uses momentum to advance right leg during swing phase due to absent quad control. Good foot clearance. PT-OP-H Neuro Start: 05/05/23 15:26 Freq: Status: Active Protocol: Document 05/05/23 13:50 DCW (Rec: 05/05/23 15:48 DCW [id number]) Sensation Evaluation Gross Sensation Gross Sensation Right LE Impaired Sensation Description Numbness,Tingling PT-OP-M Strength Start: 05/05/23 15:26 Freq: Status: Active Protocol: Document 05/05/23 13:50 DCW (Rec: 05/05/23 16:00 DCW [id number]) Hip Strength Hip Manual Muscle Testing Right Flexion (L2) 2+ Poor+ Extension (S1) 4- Good- Abduction 2 Poor Adduction 2 Poor Left Flexion (L2) 4+ Good+ Extension (S1) 4+ Good+ Abduction 4+ Good+ Adduction 4+ Good+ Knee Strength Knee Manual Muscle Testing Right Flexion (S2) 4 Good Extension (L3) 0 Zero Left Flexion (S2) 5 Normal Extension (L3) 5 Normal Ankle/Foot Strength Ankle and Foot Manual Muscle Testing Right Dorsiflexion (L4) 4 Good Plantarflexion (S1) 4 Good Left Dorsiflexion (L4) 4+ Good+ Plantarflexion (S1) 4+ Good+ PT-OP-Q Treatments Start: 05/05/23 15:26 Freq: Status: Active Protocol: Document 06/07/23 08:12 AB (Rec: 06/07/23 12:56 AB [id number]) Therapeutic Exercises Supine Exercises hip and knee extension with band Side right Equipment Used level one light blue band Reps/Minutes 2X10 Comments requires assist to hold the LE in position and prevent hip ER quad sets Side bilateral Reps/Minutes X10 Comments Performed bilaterally for carryover left to right Sidelying Exercises AA right knee extension Side right Reps/Minutes X10 Comments Assist to hold the LE Therapeutic Activity Therapeutic Activity sidelying to sit Reps/Minutes X1 Comments Verbal cues for timing, to push up with UE's immediately after LE's are pushed off mat. rolling Reps/Minutes X6 X 3 Comments left and right left with pillow between knees to keep right LE from falling into adduction rapidly, rolling right with very minimal assist at lateral knee to prevent LE from falling rapidly into ER, verbal cues to reach with UE and fully roll onto side Manual Therapy Treatment Soft Tissue Mobilization STM quad and hamstring right Le Body Location for swelling, increased tissue density distal quad and hamstring stiffness Mobilization Type Cross-Friction,Rolling Intensity/Depth Moderate Body Position Hooklying Comments Monitored for pain Manual Techniques PROM hamstring stretch right LE Body Location right hamstring Body Position Hooklying Reps/Duration X1 60 seconds Self-Care/Home Management Treatment Education Caregiver Education Caregiver training in assist for rolling right and to provide support for hooklying hip and knee extension with band, and performed a few of the repetitions with patient in clinic this session. Activities Self-Care/Home Management Activities Rolling and hooklying hip and knee extension with band with caregiver assist added to training. PT-OP-R Modalities Start: 05/10/23 13:44 Freq: Status: Active Protocol: Document 05/17/23 13:06 SP (Rec: 05/17/23 13:48 SP [id number]) Electric Stimulation Electric Stimulation [place] Stimulation Body Location R Quad Intensity 45->50 Frequency 4 on/12 off Ramp 2.0 Patient Position Sitting Comments Attempted LAQ during on phase, AAROM PT-OP-T Assessment and Plan Start: 05/05/23 15:26 Freq: Status: Active Protocol: Document 06/07/23 08:12 AB (Rec: 06/07/23 08:17 AB [id number]) Physical Therapy Assessment Goals Three Impairment Pt currently demonstrating 0/5 MMT right quad Delivery And Mail Sorter Goal (LTG) Pt to exhibit 2-/5 MMT or greater of right quad in order to improve ability to limit knee buckling. LTG Duration 08/03/23 Two Impairment Pt ambulates 174' during Two Minute Walk Test using FWW [facility] Goal (LTG) Pt to exhibit ability to complete full 6MWT with no rest breaks using LRAD, ambulating >600' in order to demonstrate improve gait speed and activity tolerance LTG Duration 08/03/23 One Impairment Pt does not have an appropriate home exercise program Short Term Goal (STG) Pt to be independent and compliant with an appropriate HEP STG Duration 07/02/23 - improving Assessment Summary Assessment Lanette reports the knee feels looser end of session. Strength defecits right LE continue to impact functional mobility. Physical Therapy Plan Frequency and Duration Frequency of Treatment 2x/Week Plan of Care Start Date 05/05/23 Plan of Care End Date 08/03/23 Next Visit Focus/Plan Next Visit Plan Continue functional RLE strengthening. POC: Transfers, 4WW practice, gait/balance training, e-stim for quad contraction. Possibly tapping to facilitate quad if blood test for blood thinners results are normal. Review rolling to side/assist with hip control as needed, sit to stand as and exercise.
--- NOTE | 2023-06-07 13:13 | PT.OTN ---
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, right leg, subsequent encounter (06/07/23) Other specified postprocedural states (06/07/23) Physical Therapy Treatment Note PT-OP-A Visit Information Start: 05/05/23 15:26 Freq: Status: Active Protocol: Document 06/07/23 08:12 AB (Rec: 06/07/23 08:17 AB [id number]) Out-Patient Physical Therapy Visit Information Visit Information Visit Type Treatment Note Visit Note PN due 19th visit Visit Start Time 11:38 Visit Stop Time 12:18 Visit Number 10 Number of STAIN WIPER Visits 1 PT-OP-B Current Condition Start: 05/05/23 15:26 Freq: Status: Active Protocol: Document 05/05/23 13:50 DCW (Rec: 05/05/23 15:48 DCW [id number]) Current Condition History of Current Condition Onset Date 12/31/22 Current Complaints R LE weakness, falls, neuromuscular dysfunction History of Current Condition Pt is a 73 year old female presenting with a complex recent medical history. Pt was brought to ED on 12/31/22 by EMS for nausea, vomiting, and generalized weakness. Was found to have cerebellar bleed and was transferred to [facility]. 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 Pt was at [facility] for 5 1/2 weeks, and then transferred to a rehab facility in [place] for another two months. Pt reports that at [facility], she was up walking around fairly well, but then developed severe nerve pain in her right leg. Found to have a large hematoma in her right low back/hip which ended up compressing right LE nerves. This resulted in loss of motor function and sensory imput from right leg. Pt admits she was miserable waiting for the pain to stop. Due to motor dysfunction in her right leg, was having increased difficulty walking, and spent her time in rehab in a wheelchair. Leg weakness resulted in two fals, both of which yusef her right knee. Pt has recently been working with home health, and is now doing well enough to progress to out-patient PT. Has been walking at home with a FWW, just obtained a 4WW, but not comfortable with it yet. Reports she can get herself to the kitchen, and furniture surf using the countertop and cabinets, and is able to dress and perform pericare independently. Still requires assistance with showering. Has friend helping as caregiver. Treatment Goals Patient/Caregiver Goals Pt's stated goals are to learn how to properly use 4WW, get right LE moving better, and walk on her own. PT-OP-C Subjective Start: 05/05/23 15:26 Freq: Status: Active Protocol: Document 06/07/23 08:12 AB (Rec: 06/07/23 12:56 AB [id number]) OP-PT Subjective Patient Comments Patient Comments Patient reports achilles is no longer painful, comments the right knee is stiff. Decreased quad activation noted right LE, when compared to left noted large red are left LE medial LE, Lanette reports she is having blood work today, due to this red area, as she is on blood thinners. PT-OP-E Functional Tests Start: 05/05/23 15:26 Freq: Status: Active Protocol: Document 06/03/23 10:30 DCW (Rec: 06/03/23 10:42 DCW [id number]) Functional Tests 2 Minute Walk Test Distance 232' Device Used 4WW Comments 1.93 ft/sec 30 Second Sit to Stand Test Score x10 repetitions Comments UE use PT-OP-G Mobility & Gait Start: 05/05/23 15:26 Freq: Status: Active Protocol: Document 05/05/23 13:50 DCW (Rec: 05/05/23 15:48 DCW [id number]) OP Mobility Evaluation Transfers Sit to Stand SBA /c FWW Bed to Chair Transfers SBA /c FWW Wheelchair Management Type of Wheelchair Manual Assessment Details Propells with B UEs OP Gait Assessment Gait Gait Assistance Required: Standby Assistance Distance (Feet) 174 Assistive Devices Assistive Device Gait Belt,Front Wheeled Walker Comments Gait Comments Pt uses momentum to advance right leg during swing phase due to absent quad control. Good foot clearance. PT-OP-H Neuro Start: 05/05/23 15:26 Freq: Status: Active Protocol: Document 05/05/23 13:50 DCW (Rec: 05/05/23 15:48 DCW [id number]) Sensation Evaluation Gross Sensation Gross Sensation Right LE Impaired Sensation Description Numbness,Tingling PT-OP-M Strength Start: 05/05/23 15:26 Freq: Status: Active Protocol: Document 05/05/23 13:50 DCW (Rec: 05/05/23 16:00 DCW [id number]) Hip Strength Hip Manual Muscle Testing Right Flexion (L2) 2+ Poor+ Extension (S1) 4- Good- Abduction 2 Poor Adduction 2 Poor Left Flexion (L2) 4+ Good+ Extension (S1) 4+ Good+ Abduction 4+ Good+ Adduction 4+ Good+ Knee Strength Knee Manual Muscle Testing Right Flexion (S2) 4 Good Extension (L3) 0 Zero Left Flexion (S2) 5 Normal Extension (L3) 5 Normal Ankle/Foot Strength Ankle and Foot Manual Muscle Testing Right Dorsiflexion (L4) 4 Good Plantarflexion (S1) 4 Good Left Dorsiflexion (L4) 4+ Good+ Plantarflexion (S1) 4+ Good+ PT-OP-Q Treatments Start: 05/05/23 15:26 Freq: Status: Active Protocol: Document 06/07/23 08:12 AB (Rec: 06/07/23 12:56 AB [id number]) Therapeutic Exercises Supine Exercises hip and knee extension with band Side right Equipment Used level one light blue band Reps/Minutes 2X10 Comments requires assist to hold the LE in position and prevent hip ER quad sets Side bilateral Reps/Minutes X10 Comments Performed bilaterally for carryover left to right Sidelying Exercises AA right knee extension Side right Reps/Minutes X10 Comments Assist to hold the LE Therapeutic Activity Therapeutic Activity sidelying to sit Reps/Minutes X1 Comments Verbal cues for timing, to push up with UE's immediately after LE's are pushed off mat. rolling Reps/Minutes X6 X 3 Comments left and right left with pillow between knees to keep right LE from falling into adduction rapidly, rolling right with very minimal assist at lateral knee to prevent LE from falling rapidly into ER, verbal cues to reach with UE and fully roll onto side Manual Therapy Treatment Soft Tissue Mobilization STM quad and hamstring right Le Body Location for swelling, increased tissue density distal quad and hamstring stiffness Mobilization Type Cross-Friction,Rolling Intensity/Depth Moderate Body Position Hooklying Comments Monitored for pain Manual Techniques PROM hamstring stretch right LE Body Location right hamstring Body Position Hooklying Reps/Duration X1 60 seconds Self-Care/Home Management Treatment Education Caregiver Education Caregiver training in assist for rolling right and to provide support for hooklying hip and knee extension with band, and performed a few of the repetitions with patient in clinic this session. Activities Self-Care/Home Management Activities Rolling and hooklying hip and knee extension with band with caregiver assist added to training. PT-OP-R Modalities Start: 05/10/23 13:44 Freq: Status: Active Protocol: Document 05/17/23 13:06 SP (Rec: 05/17/23 13:48 SP [id number]) Electric Stimulation Electric Stimulation [place] Stimulation Body Location R Quad Intensity 45->50 Frequency 4 on/12 off Ramp 2.0 Patient Position Sitting Comments Attempted LAQ during on phase, AAROM PT-OP-T Assessment and Plan Start: 05/05/23 15:26 Freq: Status: Active Protocol: Document 06/07/23 08:12 AB (Rec: 06/07/23 08:17 AB [id number]) Physical Therapy Assessment Goals Three Impairment Pt currently demonstrating 0/5 MMT right quad Longterm Goal (LTG) Pt to exhibit 2-/5 MMT or greater of right quad in order to improve ability to limit knee buckling. LTG Duration 08/03/23 Two Impairment Pt ambulates 174' during Two Minute Walk Test using FWW Software Tester Goal (LTG) Pt to exhibit ability to complete full 6MWT with no rest breaks using LRAD, ambulating >600' in order to demonstrate improve gait speed and activity tolerance LTG Duration 08/03/23 One Impairment Pt does not have an appropriate home exercise program Short Term Goal (STG) Pt to be independent and compliant with an appropriate HEP STG Duration 07/02/23 - improving Assessment Summary Assessment Lanette reports the knee feels looser end of session. Strength defecits right LE continue to impact functional mobility. Physical Therapy Plan Frequency and Duration Frequency of Treatment 2x/Week Plan of Care Start Date 05/05/23 Plan of Care End Date 08/03/23 Next Visit Focus/Plan Next Visit Plan Continue functional RLE strengthening. POC: Transfers, 4WW practice, gait/balance training, e-stim for quad contraction. Possibly tapping to facilitate quad if blood test for blood thinners results are normal. Review rolling to side/assist with hip control as needed, sit to stand as and exercise.
--- NOTE | 2023-06-10 16:34 | PT.OTN ---
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, right leg, subsequent encounter (06/10/23) Other specified postprocedural states (06/10/23) Physical Therapy Treatment Note PT-OP-A Visit Information Start: 05/05/23 15:26 Freq: Status: Active Protocol: Document 06/10/23 15:58 AB (Rec: 06/10/23 16:34 AB [id number]) Out-Patient Physical Therapy Visit Information Visit Information Visit Type Treatment Note Visit Note Access Code [email or web address] Visit Start Time 15:17 Visit Stop Time 16:14 Visit Number 11 Number of BUSINESS ANALYSIS SPECIALIST Visits 2 PT-OP-B Current Condition Start: 05/05/23 15:26 Freq: Status: Active Protocol: Document 05/05/23 13:50 DCW (Rec: 05/05/23 15:48 DCW [id number]) Current Condition History of Current Condition Onset Date 12/31/22 Current Complaints R LE weakness, falls, neuromuscular dysfunction History of Current Condition Pt is a 73 year old female presenting with a complex recent medical history. Pt was brought to ED on 12/31/22 by EMS for nausea, vomiting, and generalized weakness. Was found to have cerebellar bleed and was transferred to [facility]. 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 Pt was at [facility] for 5 1/2 weeks, and then transferred to a rehab facility in [place] for another two months. Pt reports that at [facility], she was up walking around fairly well, but then developed severe nerve pain in her right leg. Found to have a large hematoma in her right low back/hip which ended up compressing right LE nerves. This resulted in loss of motor function and sensory imput from right leg. Pt admits she was miserable waiting for the pain to stop. Due to motor dysfunction in her right leg, was having increased difficulty walking, and spent her time in rehab in a wheelchair. Leg weakness resulted in two fals, both of which yusef her right knee. Pt has recently been working with home health, and is now doing well enough to progress to out-patient PT. Has been walking at home with a FWW, just obtained a 4WW, but not comfortable with it yet. Reports she can get herself to the kitchen, and furniture surf using the countertop and cabinets, and is able to dress and perform pericare independently. Still requires assistance with showering. Has friend helping as caregiver. Treatment Goals Patient/Caregiver Goals Pt's stated goals are to learn how to properly use 4WW, get right LE moving better, and walk on her own. PT-OP-C Subjective Start: 05/05/23 15:26 Freq: Status: Active Protocol: Document 06/10/23 15:58 AB (Rec: 06/10/23 16:34 AB [id number]) OP-PT Subjective Patient Comments Patient Comments Patient reports the area behind the left knee is painful. PT's Cele, and Carolyne also in to assist, left calf does not meet criteria for DVT. Patient advised to use UE's to move WC instead of heels and knee flexion. Patient reports blood work was normal. PT-OP-E Functional Tests Start: 05/05/23 15:26 Freq: Status: Active Protocol: Document 06/03/23 10:30 DCW (Rec: 06/03/23 10:42 DCW [id number]) Functional Tests 2 Minute Walk Test Distance 232' Device Used 4WW Comments 1.93 ft/sec 30 Second Sit to Stand Test Score x10 repetitions Comments UE use PT-OP-G Mobility & Gait Start: 05/05/23 15:26 Freq: Status: Active Protocol: Document 05/05/23 13:50 DCW (Rec: 05/05/23 15:48 DCW [id number]) OP Mobility Evaluation Transfers Sit to Stand SBA /c FWW Bed to Chair Transfers SBA /c FWW Wheelchair Management Type of Wheelchair Manual Assessment Details Propells with B UEs OP Gait Assessment Gait Gait Assistance Required: Standby Assistance Distance (Feet) 174 Assistive Devices Assistive Device Gait Belt,Front Wheeled Walker Comments Gait Comments Pt uses momentum to advance right leg during swing phase due to absent quad control. Good foot clearance. PT-OP-H Neuro Start: 05/05/23 15:26 Freq: Status: Active Protocol: Document 05/05/23 13:50 DCW (Rec: 05/05/23 15:48 DCW [id number]) Sensation Evaluation Gross Sensation Gross Sensation Right LE Impaired Sensation Description Numbness,Tingling PT-OP-M Strength Start: 05/05/23 15:26 Freq: Status: Active Protocol: Document 05/05/23 13:50 DCW (Rec: 05/05/23 16:00 DCW [id number]) Hip Strength Hip Manual Muscle Testing Right Flexion (L2) 2+ Poor+ Extension (S1) 4- Good- Abduction 2 Poor Adduction 2 Poor Left Flexion (L2) 4+ Good+ Extension (S1) 4+ Good+ Abduction 4+ Good+ Adduction 4+ Good+ Knee Strength Knee Manual Muscle Testing Right Flexion (S2) 4 Good Extension (L3) 0 Zero Left Flexion (S2) 5 Normal Extension (L3) 5 Normal Ankle/Foot Strength Ankle and Foot Manual Muscle Testing Right Dorsiflexion (L4) 4 Good Plantarflexion (S1) 4 Good Left Dorsiflexion (L4) 4+ Good+ Plantarflexion (S1) 4+ Good+ PT-OP-Q Treatments Start: 05/05/23 15:26 Freq: Status: Active Protocol: Document 06/10/23 15:58 AB (Rec: 06/10/23 16:34 AB [id number]) Therapeutic Exercises Supine Exercises hip add /abd hooklying Supine Exercise Name AROM, minimal ROM Side right Reps/Minutes X8 Comments guarding at lateral knee, but no assist required for minimal ROM short arc quad Side right Reps/Minutes X10 Comments with tapping to facilitate quad, increased act noted, not able to lift heel knee flex ext with LE on ball Side bilateral Resistance therapist giving resistance at ball for extension Reps/Minutes 15 hip and knee extension with band Side right Equipment Used manual resistance Reps/Minutes 2X10 Sidelying Exercises AA right knee extension Sidelying Exercise Name AROM Side left Reps/Minutes X20 and X 15 Comments no assist required, able to extend but poor control last 30 deg extension Sitting Exercises tail gait Sitting Exercise Name alternating UE ext/flex with momentum Reps/Minutes one minute LAQ Sitting Exercise Name AA with verbal cues to hold and less assist required for eccentric phase Side right Reps/Minutes X10 Comments tapping to facilitate quad X 4 STS Sitting Exercise Name from chair Reps/Minutes X10 Comments VC to sit down slowly Therapeutic Activity Therapeutic Activity sidelying to sit Reps/Minutes X1 Comments Verbal cues for timing, to push up with UE's immediately after LE's are pushed off mat. rolling Reps/Minutes X8 Comments rolling right CGA at knee left CGA to very minimal assist to control LE alignment at hip Manual Therapy Treatment Soft Tissue Mobilization STM quad and hamstring right Le Body Location for swelling, increased tissue density distal quad and hamstring stiffness Mobilization Type Cross-Friction,Rolling Intensity/Depth Moderate Body Position Hooklying Comments Monitored for pain PT-OP-R Modalities Start: 05/10/23 13:44 Freq: Status: Active Protocol: Document 05/17/23 13:06 SP (Rec: 05/17/23 13:48 SP [id number]) Electric Stimulation Electric Stimulation [employer] Stimulation Body Location R Quad Intensity 45->50 Frequency 4 on/12 off Ramp 2.0 Patient Position Sitting Comments Attempted LAQ during on phase, AAROM PT-OP-T Assessment and Plan Start: 05/05/23 15:26 Freq: Status: Active Protocol: Document 06/10/23 15:58 AB (Rec: 06/10/23 16:34 AB [id number]) Physical Therapy Assessment Assessment Summary Assessment Patient reports she can feel it in the right quad end of session. Increased quad activation noted post tapping to facilitate, but continues to be unable to extend right knee against gravity. Physical Therapy Plan Next Visit Focus/Plan Next Note Type Treatment Note Next Visit Plan Continue functional RLE strengthening. POC: Transfers, 4WW practice, gait/balance training, ( parallel bars if 4WW not available ) e-stim for quad contraction. Possibly tapping to facilitate quad if blood test for blood thinners results are normal. Review rolling to side/assist with hip control as needed, sit to stand as and exercise. continue tappint to facilitate quad.
--- NOTE | 2023-06-14 12:20 | PT.OTN ---
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, right leg, subsequent encounter (06/14/23) Other specified postprocedural states (06/14/23) Physical Therapy Treatment Note PT-OP-A Visit Information Start: 05/05/23 15:26 Freq: Status: Active Protocol: Document 06/14/23 11:17 AB (Rec: 06/14/23 12:19 AB [id number]) Out-Patient Physical Therapy Visit Information Visit Information Visit Type Treatment Note Visit Note Access Code [email or web address] Visit Start Time 11:18 Visit Stop Time 12:05 Visit Number 12 Number of LABORATORY APPARATUS GLASS GRINDER Visits 3 PT-OP-B Current Condition Start: 05/05/23 15:26 Freq: Status: Active Protocol: Document 05/05/23 13:50 DCW (Rec: 05/05/23 15:48 DCW [id number]) Current Condition History of Current Condition Onset Date 12/31/22 Current Complaints R LE weakness, falls, neuromuscular dysfunction History of Current Condition Pt is a 73 year old female presenting with a complex recent medical history. Pt was brought to ED on 12/31/22 by EMS for nausea, vomiting, and generalized weakness. Was found to have cerebellar bleed and was transferred to [facility]. 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 Pt was at [facility] for 5 1/2 weeks, and then transferred to a rehab facility in [place] for another two months. Pt reports that at [facility], she was up walking around fairly well, but then developed severe nerve pain in her right leg. Found to have a large hematoma in her right low back/hip which ended up compressing right LE nerves. This resulted in loss of motor function and sensory imput from right leg. Pt admits she was miserable waiting for the pain to stop. Due to motor dysfunction in her right leg, was having increased difficulty walking, and spent her time in rehab in a wheelchair. Leg weakness resulted in two fals, both of which yusef her right knee. Pt has recently been working with home health, and is now doing well enough to progress to out-patient PT. Has been walking at home with a FWW, just obtained a 4WW, but not comfortable with it yet. Reports she can get herself to the kitchen, and furniture surf using the countertop and cabinets, and is able to dress and perform pericare independently. Still requires assistance with showering. Has friend helping as caregiver. Treatment Goals Patient/Caregiver Goals Pt's stated goals are to learn how to properly use 4WW, get right LE moving better, and walk on her own. PT-OP-C Subjective Start: 05/05/23 15:26 Freq: Status: Active Protocol: Document 06/14/23 11:17 AB (Rec: 06/14/23 12:19 AB [id number]) OP-PT Subjective Patient Comments Patient Comments Patient reports the left calf pain is better, less pain, more distal now. Patient reports she walked more with the four wheeled walker. this weekend with no buckling, also reports she did her [employer] work standing. Pt reports they will not go to [facility] July 04. PT-OP-E Functional Tests Start: 05/05/23 15:26 Freq: Status: Active Protocol: Document 06/03/23 10:30 DCW (Rec: 06/03/23 10:42 DCW [id number]) Functional Tests 2 Minute Walk Test Distance 232' Device Used 4WW Comments 1.93 ft/sec 30 Second Sit to Stand Test Score x10 repetitions Comments UE use PT-OP-G Mobility & Gait Start: 05/05/23 15:26 Freq: Status: Active Protocol: Document 05/05/23 13:50 DCW (Rec: 05/05/23 15:48 DCW [id number]) OP Mobility Evaluation Transfers Sit to Stand SBA /c FWW Bed to Chair Transfers SBA /c FWW Wheelchair Management Type of Wheelchair Manual Assessment Details Propells with B UEs OP Gait Assessment Gait Gait Assistance Required: Standby Assistance Distance (Feet) 174 Assistive Devices Assistive Device Gait Belt,Front Wheeled Walker Comments Gait Comments Pt uses momentum to advance right leg during swing phase due to absent quad control. Good foot clearance. PT-OP-H Neuro Start: 05/05/23 15:26 Freq: Status: Active Protocol: Document 05/05/23 13:50 DCW (Rec: 05/05/23 15:48 DCW [id number]) Sensation Evaluation Gross Sensation Gross Sensation Right LE Impaired Sensation Description Numbness,Tingling PT-OP-M Strength Start: 05/05/23 15:26 Freq: Status: Active Protocol: Document 05/05/23 13:50 DCW (Rec: 05/05/23 16:00 DCW [id number]) Hip Strength Hip Manual Muscle Testing Right Flexion (L2) 2+ Poor+ Extension (S1) 4- Good- Abduction 2 Poor Adduction 2 Poor Left Flexion (L2) 4+ Good+ Extension (S1) 4+ Good+ Abduction 4+ Good+ Adduction 4+ Good+ Knee Strength Knee Manual Muscle Testing Right Flexion (S2) 4 Good Extension (L3) 0 Zero Left Flexion (S2) 5 Normal Extension (L3) 5 Normal Ankle/Foot Strength Ankle and Foot Manual Muscle Testing Right Dorsiflexion (L4) 4 Good Plantarflexion (S1) 4 Good Left Dorsiflexion (L4) 4+ Good+ Plantarflexion (S1) 4+ Good+ PT-OP-Q Treatments Start: 05/05/23 15:26 Freq: Status: Active Protocol: Document 06/14/23 11:17 AB (Rec: 06/14/23 12:19 AB [id number]) Therapeutic Exercises Supine Exercises quad sets Supine Exercise Name folded pillow under knees Sidelying Exercises sidelying knee extension Sidelying Exercise Name AROM with and without pillow between knees Side right Reps/Minutes X10 Sitting Exercises tail gait Sitting Exercise Name alternating UE ext/flex with momentum Reps/Minutes 30 sec LAQ Sitting Exercise Name focus on eccentric lowering AA Side right Reps/Minutes X10 Comments with tapping to facilitate quad Standing Exercises SLS Standing Exercise Name hands above parallel bars, CGA /Guarding at tibial plateau right LE Side right Reps/Minutes X6 Comments Verbal cues for hands above parallel bars Therapeutic Activity Therapeutic Activity transfers chair to chair 90 deg Name X6 each direction Reps/Minutes left and right multiple trials Comments post first and last, performed in stagger stance right LE retro to increase quad strength right LE. VC for increased hip hinge, and for locking FWW, backing fully to chair. rolling Reps/Minutes X8 Comments supervision at lateral right knee, Patient able to control eccentric add right hip when rolling right, no physical assist required. Manual Therapy Treatment Soft Tissue Mobilization STM quad and hamstring right Le Body Location for swelling, increased tissue density distal quad and hamstring stiffness Mobilization Type Cross-Friction,Rolling Intensity/Depth Moderate Body Position Hooklying Comments Monitored for pain Manual Techniques PROM hamstring stretch right LE Body Location right hamstring Body Position Hooklying Reps/Duration X2 60 seconds Comments post manual therapy PT-OP-R Modalities Start: 05/10/23 13:44 Freq: Status: Active Protocol: Document 05/17/23 13:06 SP (Rec: 05/17/23 13:48 SP [id number]) Electric Stimulation Electric Stimulation [place] Stimulation Body Location R Quad Intensity 45->50 Frequency 4 on/12 off Ramp 2.0 Patient Position Sitting Comments Attempted LAQ during on phase, AAROM PT-OP-T Assessment and Plan Start: 05/05/23 15:26 Freq: Status: Active Protocol: Document 06/14/23 11:17 AB (Rec: 06/14/23 12:19 AB [id number]) Physical Therapy Assessment Goals Three Impairment Pt currently demonstrating 0/5 MMT right quad Inspector Floor Sub Assembly Goal (LTG) Pt to exhibit 2-/5 MMT or greater of right quad in order to improve ability to limit knee buckling. LTG Duration 08/03/23 Two Impairment Pt ambulates 174' during Two Minute Walk Test using FWW Inspector Floor Sub Assembly Goal (LTG) Pt to exhibit ability to complete full 6MWT with no rest breaks using LRAD, ambulating >600' in order to demonstrate improve gait speed and activity tolerance LTG Duration 08/03/23 One Impairment Pt does not have an appropriate home exercise program Short Term Goal (STG) Pt to be independent and compliant with an appropriate HEP STG Duration 07/02/23 - improving Assessment Summary Assessment Patient reports having no increased pain end of session. noted increased quad activation with eccentric phase of LAQ with tapping to facilation, but continues to be unable to perform without physical assist. Into this session with good conrol of hip when rolling in hooklying. Physical Therapy Plan Frequency and Duration Frequency of Treatment 2x/Week Plan of Care Start Date 05/05/23 Plan of Care End Date 08/03/23 Next Visit Focus/Plan Next Note Type Treatment Note Next Visit Plan Continue functional RLE strengthening. POC: Transfers, 4WW practice, gait/balance training, ( parallel bars if 4WW not available ) e-stim for quad contraction. Possibly discontinue rolling from HEP, continue with tapping to facilitate quad as daniela.
--- NOTE | 2023-06-17 14:12 | PT.OTN ---
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, right leg, subsequent encounter (06/17/23) Other specified postprocedural states (06/17/23) Physical Therapy Treatment Note PT-OP-A Visit Information Start: 05/05/23 15:26 Freq: Status: Active Protocol: Document 06/17/23 12:47 AB (Rec: 06/17/23 14:12 AB [id number]) Out-Patient Physical Therapy Visit Information Visit Information Visit Type Treatment Note Visit Note Access Code [email or web address] Visit Start Time 01:00 Visit Stop Time 01:47 Visit Number 13 Number of SUBSTATION SUPERINTENDENT Visits 4 Evaluation Information Evaluation Date 05/05/23 PT-OP-B Current Condition Start: 05/05/23 15:26 Freq: Status: Active Protocol: Document 05/05/23 13:50 DCW (Rec: 05/05/23 15:48 DCW [id number]) Current Condition History of Current Condition Onset Date 12/31/22 Current Complaints R LE weakness, falls, neuromuscular dysfunction History of Current Condition Pt is a 73 year old female presenting with a complex recent medical history. Pt was brought to ED on 12/31/22 by EMS for nausea, vomiting, and generalized weakness. Was found to have cerebellar bleed and was transferred to [facility]. 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 Pt was at [facility] for 5 1/2 weeks, and then transferred to a rehab facility in [place] for another two months. Pt reports that at [facility], she was up walking around fairly well, but then developed severe nerve pain in her right leg. Found to have a large hematoma in her right low back/hip which ended up compressing right LE nerves. This resulted in loss of motor function and sensory imput from right leg. Pt admits she was miserable waiting for the pain to stop. Due to motor dysfunction in her right leg, was having increased difficulty walking, and spent her time in rehab in a wheelchair. Leg weakness resulted in two fals, both of which yusef her right knee. Pt has recently been working with home health, and is now doing well enough to progress to out-patient PT. Has been walking at home with a FWW, just obtained a 4WW, but not comfortable with it yet. Reports she can get herself to the kitchen, and furniture surf using the countertop and cabinets, and is able to dress and perform pericare independently. Still requires assistance with showering. Has friend helping as caregiver. Treatment Goals Patient/Caregiver Goals Pt's stated goals are to learn how to properly use 4WW, get right LE moving better, and walk on her own. PT-OP-C Subjective Start: 05/05/23 15:26 Freq: Status: Active Protocol: Document 06/17/23 12:47 AB (Rec: 06/17/23 14:12 AB [id number]) OP-PT Subjective Patient Comments Patient Comments Lanette into session with new 4 wheeled walker commenting this one fits in bathroom. Also into session with report from imaging. PT-OP-E Functional Tests Start: 05/05/23 15:26 Freq: Status: Active Protocol: Document 06/03/23 10:30 DCW (Rec: 06/03/23 10:42 DCW [id number]) Functional Tests 2 Minute Walk Test Distance 232' Device Used 4WW Comments 1.93 ft/sec 30 Second Sit to Stand Test Score x10 repetitions Comments UE use PT-OP-G Mobility & Gait Start: 05/05/23 15:26 Freq: Status: Active Protocol: Document 05/05/23 13:50 DCW (Rec: 05/05/23 15:48 DCW [id number]) OP Mobility Evaluation Transfers Sit to Stand SBA /c FWW Bed to Chair Transfers SBA /c FWW Wheelchair Management Type of Wheelchair Manual Assessment Details Propells with B UEs OP Gait Assessment Gait Gait Assistance Required: Standby Assistance Distance (Feet) 174 Assistive Devices Assistive Device Gait Belt,Front Wheeled Walker Comments Gait Comments Pt uses momentum to advance right leg during swing phase due to absent quad control. Good foot clearance. PT-OP-H Neuro Start: 05/05/23 15:26 Freq: Status: Active Protocol: Document 05/05/23 13:50 DCW (Rec: 05/05/23 15:48 DCW [id number]) Sensation Evaluation Gross Sensation Gross Sensation Right LE Impaired Sensation Description Numbness,Tingling PT-OP-M Strength Start: 05/05/23 15:26 Freq: Status: Active Protocol: Document 05/05/23 13:50 DCW (Rec: 05/05/23 16:00 DCW [id number]) Hip Strength Hip Manual Muscle Testing Right Flexion (L2) 2+ Poor+ Extension (S1) 4- Good- Abduction 2 Poor Adduction 2 Poor Left Flexion (L2) 4+ Good+ Extension (S1) 4+ Good+ Abduction 4+ Good+ Adduction 4+ Good+ Knee Strength Knee Manual Muscle Testing Right Flexion (S2) 4 Good Extension (L3) 0 Zero Left Flexion (S2) 5 Normal Extension (L3) 5 Normal Ankle/Foot Strength Ankle and Foot Manual Muscle Testing Right Dorsiflexion (L4) 4 Good Plantarflexion (S1) 4 Good Left Dorsiflexion (L4) 4+ Good+ Plantarflexion (S1) 4+ Good+ PT-OP-Q Treatments Start: 05/05/23 15:26 Freq: Status: Active Protocol: Document 06/17/23 12:47 AB (Rec: 06/17/23 14:12 AB [id number]) Therapeutic Exercises Supine Exercises AROM heel slide Side right Equipment Used X10 Comments unable with shoe, able with towel under bare foot and VC to avoid using UE terminal knee extension against ball under foot Supine Exercise Name from ~20 deg flexion Side right Reps/Minutes X10 Comments therapist holding the ball in place short arc quad Side right Reps/Minutes X3 Comments with tapping to facilitate quad, increased act noted, not able to lift heel hip and knee extension with band Side right Equipment Used manual resistance Reps/Minutes 2X10 quad sets Supine Exercise Name folded pillow under knees Side bilateral Reps/Minutes X10 Comments post tapping to facilitate quad Sitting Exercises tail gait Sitting Exercise Name alternating UE ext/flex with momentum Reps/Minutes 30 sec LAQ Sitting Exercise Name focus on eccentric lowering AA Side right Reps/Minutes X10 Comments with tapping to facilitate quad STS Sitting Exercise Name from mat with UE use Reps/Minutes X10 Comments right foot back stagger stance Standing Exercises lateral step up Standing Exercise Name Using locked FWW Side right Equipment Used scale/2 inch step Reps/Minutes 2X10 on step X10 and X 3 on scale Comments verbal cues to avoid hyper extension CGA Therapeutic Activity Therapeutic Activity sidelying to sit Reps/Minutes X2 each direction left and right Comments Verbal cues for no UE use to move right LE with Upper extremeties or left LE, VC for timing Manual Therapy Treatment Soft Tissue Mobilization STM quad and hamstring right Le Body Location for swelling, increased tissue density distal quad and hamstring stiffness Mobilization Type Cross-Friction,Rolling Intensity/Depth Moderate Body Position Hooklying Comments Monitored for pain Manual Techniques PROM hamstring stretch right LE Body Location right hamstring Body Position Hooklying Reps/Duration contract relax X3 Comments post STM Self-Care/Home Management Treatment Education Caregiver Education spouse in for training for lateral step up right LE on scale with FWW, advised to hold gait belt perform, that the knee should be straight not locked and should bend slowly when lowering left LE and discussed 3X 5 twice a day , ie avoid performing to fatigue. PT-OP-R Modalities Start: 05/10/23 13:44 Freq: Status: Active Protocol: Document 05/17/23 13:06 SP (Rec: 05/17/23 13:48 SP [id number]) Electric Stimulation Electric Stimulation Bhutanese Stimulation Body Location R Quad Intensity 45->50 Frequency 4 on/12 off Ramp 2.0 Patient Position Sitting Comments Attempted LAQ during on phase, AAROM PT-OP-T Assessment and Plan Start: 05/05/23 15:26 Freq: Status: Active Protocol: Document 06/17/23 12:47 AB (Rec: 06/17/23 14:12 AB [id number]) Physical Therapy Assessment Goals Three Impairment Pt currently demonstrating 0/5 MMT right quad Integrated Circuit Design Engineer Goal (LTG) Pt to exhibit 2-/5 MMT or greater of right quad in order to improve ability to limit knee buckling. LTG Duration 08/03/23 Two Impairment Pt ambulates 174' during Two Minute Walk Test using FWW Long-Term Goal (LTG) Pt to exhibit ability to complete full 6MWT with no rest breaks using LRAD, ambulating >600' in order to demonstrate improve gait speed and activity tolerance LTG Duration 08/03/23 One Impairment Pt does not have an appropriate home exercise program Short Term Goal (STG) Pt to be independent and compliant with an appropriate HEP STG Duration 07/02/23 - improving Assessment Summary Assessment Lanette reports having no pain end of session. Able to perform lateral step up with 4 wheeled walker (locked) with scale under right LE with over 100lb of weight through right LE without buckling or locking this session. Physical Therapy Plan Frequency and Duration Frequency of Treatment 2x/Week Plan of Care Start Date 05/05/23 Plan of Care End Date 08/03/23 Next Visit Focus/Plan Next Note Type Treatment Note Next Visit Plan Continue functional RLE strengthening. POC: Transfers, 4WW practice, gait/balance training, ( parallel bars if 4WW not available ) e-stim for quad contraction. Possibly discontinue rolling from HEP, continue with tapping to facilitate quad as daniela.
--- NOTE | 2023-06-21 12:07 | PT.OTN ---
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, right leg, subsequent encounter (06/21/23) Other specified postprocedural states (06/21/23) Physical Therapy Treatment Note PT-OP-A Visit Information Start: 05/05/23 15:26 Freq: Status: Active Protocol: Document 06/21/23 11:15 DCW (Rec: 06/21/23 12:06 DCW [id number]) Out-Patient Physical Therapy Visit Information Visit Information Visit Type Treatment Note Visit Start Time 11:15 Visit Stop Time 12:00 Visit Number 14 Number of PAINTER DRUM Visits 0 Evaluation Information Evaluation Date 05/05/23 PT-OP-B Current Condition Start: 05/05/23 15:26 Freq: Status: Active Protocol: Document 05/05/23 13:50 DCW (Rec: 05/05/23 15:48 DCW [id number]) Current Condition History of Current Condition Onset Date 12/31/22 Current Complaints R LE weakness, falls, neuromuscular dysfunction History of Current Condition Pt is a 73 year old female presenting with a complex recent medical history. Pt was brought to ED on 12/31/22 by EMS for nausea, vomiting, and generalized weakness. Was found to have cerebellar bleed and was transferred to [facility]. 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 Pt was at [facility] for 5 1/2 weeks, and then transferred to a rehab facility in [place] for another two months. Pt reports that at [facility], she was up walking around fairly well, but then developed severe nerve pain in her right leg. Found to have a large hematoma in her right low back/hip which ended up compressing right LE nerves. This resulted in loss of motor function and sensory imput from right leg. Pt admits she was miserable waiting for the pain to stop. Due to motor dysfunction in her right leg, was having increased difficulty walking, and spent her time in rehab in a wheelchair. Leg weakness resulted in two fals, both of which yusef her right knee. Pt has recently been working with home health, and is now doing well enough to progress to out-patient PT. Has been walking at home with a FWW, just obtained a 4WW, but not comfortable with it yet. Reports she can get herself to the kitchen, and furniture surf using the countertop and cabinets, and is able to dress and perform pericare independently. Still requires assistance with showering. Has friend helping as caregiver. Treatment Goals Patient/Caregiver Goals Pt's stated goals are to learn how to properly use 4WW, get right LE moving better, and walk on her own. PT-OP-C Subjective Start: 05/05/23 15:26 Freq: Status: Active Protocol: Document 06/21/23 11:15 DCW (Rec: 06/21/23 12:06 DCW [id number]) OP-PT Subjective Patient Comments Patient Comments I'm still really struggling with this left leg pain, it's just taken over all of the work. PT-OP-E Functional Tests Start: 05/05/23 15:26 Freq: Status: Active Protocol: Document 06/03/23 10:30 DCW (Rec: 06/03/23 10:42 DCW [id number]) Functional Tests 2 Minute Walk Test Distance 232' Device Used 4WW Comments 1.93 ft/sec 30 Second Sit to Stand Test Score x10 repetitions Comments UE use PT-OP-G Mobility & Gait Start: 05/05/23 15:26 Freq: Status: Active Protocol: Document 05/05/23 13:50 DCW (Rec: 05/05/23 15:48 DCW [id number]) OP Mobility Evaluation Transfers Sit to Stand SBA /c FWW Bed to Chair Transfers SBA /c FWW Wheelchair Management Type of Wheelchair Manual Assessment Details Propells with B UEs OP Gait Assessment Gait Gait Assistance Required: Standby Assistance Distance (Feet) 174 Assistive Devices Assistive Device Gait Belt,Front Wheeled Walker Comments Gait Comments Pt uses momentum to advance right leg during swing phase due to absent quad control. Good foot clearance. PT-OP-H Neuro Start: 05/05/23 15:26 Freq: Status: Active Protocol: Document 05/05/23 13:50 DCW (Rec: 05/05/23 15:48 DCW [id number]) Sensation Evaluation Gross Sensation Gross Sensation Right LE Impaired Sensation Description Numbness,Tingling PT-OP-M Strength Start: 01/31/24 15:26 Freq: Status: Active Protocol: Document 05/05/23 13:50 DCW (Rec: 05/05/23 16:00 DCW [id number]) Hip Strength Hip Manual Muscle Testing Right Flexion (L2) 2+ Poor+ Extension (S1) 4- Good- Abduction 2 Poor Adduction 2 Poor Left Flexion (L2) 4+ Good+ Extension (S1) 4+ Good+ Abduction 4+ Good+ Adduction 4+ Good+ Knee Strength Knee Manual Muscle Testing Right Flexion (S2) 4 Good Extension (L3) 0 Zero Left Flexion (S2) 5 Normal Extension (L3) 5 Normal Ankle/Foot Strength Ankle and Foot Manual Muscle Testing Right Dorsiflexion (L4) 4 Good Plantarflexion (S1) 4 Good Left Dorsiflexion (L4) 4+ Good+ Plantarflexion (S1) 4+ Good+ PT-OP-Q Treatments Start: 05/05/23 15:26 Freq: Status: Active Protocol: Document 06/21/23 11:15 DCW (Rec: 06/21/23 12:06 DCW [id number]) Cardio Equipment Recumbent Elliptical (Zhitu) Duration (Minutes) 6 Resistance 5 Seat Position 6 Other LEs only Gym Equipment Shuttle Recovery Bilateral Squats Resistance 50# (One new) Shuttle Recovery Platform Unstable Unilateral Squats Resistance 25# Therapeutic Exercises Supine Exercises Heel slides Supine Exercise Name Heel slides /c furniture slider Bridging Supine Exercise Name Bridging /c adductor ball squeeze terminal knee extension against ball under foot Supine Exercise Name from ~20 deg flexion Side bilateral Reps/Minutes X10 Comments Improved recruitment with overflow from left short arc quad Side right Reps/Minutes x10 Comments with tapping to facilitate quad, increased act noted, AAROM Sitting Exercises LAQ Sitting Exercise Name focus on eccentric lowering AA Side right Reps/Minutes X10 Comments with tapping to facilitate quad Other Exercises Step Lunge Other Exercise Name Step lunge Comments UE assist on rails PT-OP-R Modalities Start: 05/10/23 13:44 Freq: Status: Active Protocol: Document 05/17/23 13:06 SP (Rec: 05/17/23 13:48 SP [id number]) Electric Stimulation Electric Stimulation [place]ese Stimulation Body Location R Quad Intensity 45->50 Frequency 4 on/12 off Ramp 2.0 Patient Position Sitting Comments Attempted LAQ during on phase, AAROM PT-OP-T Assessment and Plan Start: 05/05/23 15:26 Freq: Status: Active Protocol: Document 06/21/23 11:15 DCW (Rec: 06/21/23 12:06 DCW [id number]) Physical Therapy Assessment Impairments Impairments Balance,Functional Activities, Functional Mobility,Pain,ROM, Sensation,Soft Tissue Mobility ,Strength,Tone,Transfers Goals Three Impairment Pt currently demonstrating 0/5 MMT right quad Loader Helper Goal (LTG) Pt to exhibit 2-/5 MMT or greater of right quad in order to improve ability to limit knee buckling. LTG Duration 08/03/23 Two Impairment Pt ambulates 174' during Two Minute Walk Test using FWW Loader Helper Goal (LTG) Pt to exhibit ability to complete full 6MWT with no rest breaks using LRAD, ambulating >600' in order to demonstrate improve gait speed and activity tolerance LTG Duration 08/03/23 One Impairment Pt does not have an appropriate home exercise program Short Term Goal (STG) Pt to be independent and compliant with an appropriate HEP STG Duration 07/02/23 - improving Assessment Summary Assessment Pt noting improvement with bed mobility using right leg, less reliance on left to move right in bed. Still struggling with left-sided pain secondary to apparent overuse/ compensation. Continue to focus on functional mobility, balance, AAROM, and strengthening as able. Physical Therapy Plan Frequency and Duration Frequency of Treatment 2x/Week Plan of Care Start Date 05/05/23 Plan of Care End Date 08/03/23 Therapeutic Interventions Therapeutic Interventions Balance Training,Coordination Training,Gait Training,Home Exercise Program,Joint Mobilizations,Manual Therapy, Neuromuscular Re-education, Patient/Caregiver Education, Self-Care/Home Management, Sensory Integration,Soft Tissue Mobilization, Therapeutic Activities, Therapeutic Exercises Modalities Cold Pack/Ice Massage,Electric Stimulation,Hot Packs, Ultrasound Next Visit Focus/Plan Next Note Type Treatment Note Next Visit Plan Continue functional RLE strengthening. POC: Transfers, 4WW practice, gait/balance training, ( parallel bars if 4WW not available ) e-stim for quad contraction. Possibly discontinue rolling from HEP, continue with tapping to facilitate quad as daniela.
--- NOTE | 2023-06-24 12:50 | PT.OTN ---
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, right leg, subsequent encounter (06/24/23) Other specified postprocedural states (06/24/23) Physical Therapy Treatment Note PT-OP-A Visit Information Start: 05/05/23 15:26 Freq: Status: Active Protocol: Document 06/24/23 12:00 DCW (Rec: 06/24/23 12:49 DCW [id number]) Out-Patient Physical Therapy Visit Information Visit Information Visit Type Treatment Note Visit Start Time 12:00 Visit Stop Time 12:45 Visit Number 15 Number of DIAL MOUNTER Visits 0 Evaluation Information Evaluation Date 05/05/23 PT-OP-B Current Condition Start: 05/05/23 15:26 Freq: Status: Active Protocol: Document 05/05/23 13:50 DCW (Rec: 05/05/23 15:48 DCW [id number]) Current Condition History of Current Condition Onset Date 12/31/22 Current Complaints R LE weakness, falls, neuromuscular dysfunction History of Current Condition Pt is a 73 year old female presenting with a complex recent medical history. Pt was brought to ED on 12/31/22 by EMS for nausea, vomiting, and generalized weakness. Was found to have cerebellar bleed and was transferred to [facility]. 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 Pt was at [facility] for 5 1/2 weeks, and then transferred to a rehab facility in [place] for another two months. Pt reports that at [facility], she was up walking around fairly well, but then developed severe nerve pain in her right leg. Found to have a large hematoma in her right low back/hip which ended up compressing right LE nerves. This resulted in loss of motor function and sensory imput from right leg. Pt admits she was miserable waiting for the pain to stop. Due to motor dysfunction in her right leg, was having increased difficulty walking, and spent her time in rehab in a wheelchair. Leg weakness resulted in two fals, both of which yusef her right knee. Pt has recently been working with home health, and is now doing well enough to progress to out-patient PT. Has been walking at home with a FWW, just obtained a 4WW, but not comfortable with it yet. Reports she can get herself to the kitchen, and furniture surf using the countertop and cabinets, and is able to dress and perform pericare independently. Still requires assistance with showering. Has friend helping as caregiver. Treatment Goals Patient/Caregiver Goals Pt's stated goals are to learn how to properly use 4WW, get right LE moving better, and walk on her own. PT-OP-C Subjective Start: 05/05/23 15:26 Freq: Status: Active Protocol: Document 06/24/23 12:00 DCW (Rec: 06/24/23 12:49 DCW [id number]) OP-PT Subjective Patient Comments Patient Comments Pt notes continued complaints of short episodes of occasional dizziness, typically with head movement. PT-OP-E Functional Tests Start: 05/05/23 15:26 Freq: Status: Active Protocol: Document 06/03/23 10:30 DCW (Rec: 06/03/23 10:42 DCW [id number]) Functional Tests 2 Minute Walk Test Distance 232' Device Used 4WW Comments 1.93 ft/sec 30 Second Sit to Stand Test Score x10 repetitions Comments UE use PT-OP-G Mobility & Gait Start: 05/05/23 15:26 Freq: Status: Active Protocol: Document 05/05/23 13:50 DCW (Rec: 05/05/23 15:48 DCW [id number]) OP Mobility Evaluation Transfers Sit to Stand SBA /c FWW Bed to Chair Transfers SBA /c FWW Wheelchair Management Type of Wheelchair Manual Assessment Details Propells with B UEs OP Gait Assessment Gait Gait Assistance Required: Standby Assistance Distance (Feet) 174 Assistive Devices Assistive Device Gait Belt,Front Wheeled Walker Comments Gait Comments Pt uses momentum to advance right leg during swing phase due to absent quad control. Good foot clearance. PT-OP-H Neuro Start: 05/05/23 15:26 Freq: Status: Active Protocol: Document 05/05/23 13:50 DCW (Rec: 05/05/23 15:48 DCW [id number]) Sensation Evaluation Gross Sensation Gross Sensation Right LE Impaired Sensation Description Numbness,Tingling PT-OP-M Strength Start: 05/05/23 15:26 Freq: Status: Active Protocol: Document 05/05/23 13:50 DCW (Rec: 05/05/23 16:00 DCW [id number]) Hip Strength Hip Manual Muscle Testing Right Flexion (L2) 2+ Poor+ Extension (S1) 4- Good- Abduction 2 Poor Adduction 2 Poor Left Flexion (L2) 4+ Good+ Extension (S1) 4+ Good+ Abduction 4+ Good+ Adduction 4+ Good+ Knee Strength Knee Manual Muscle Testing Right Flexion (S2) 4 Good Extension (L3) 0 Zero Left Flexion (S2) 5 Normal Extension (L3) 5 Normal Ankle/Foot Strength Ankle and Foot Manual Muscle Testing Right Dorsiflexion (L4) 4 Good Plantarflexion (S1) 4 Good Left Dorsiflexion (L4) 4+ Good+ Plantarflexion (S1) 4+ Good+ PT-OP-O Vestibular Start: 06/24/23 12:49 Freq: Status: Active Protocol: Document 06/24/23 12:00 DCW (Rec: 06/24/23 12:49 DCW [id number]) Vestibular Assessment Auditory Tests [place] Test Within normal limits Rinne Test Negative Air Conduction Results Equal Visual Testing Smooth Pursuits Horizontal WNL Smooth Pursuits Vertical WNL Saccades Horizontal WNL Heave Test Positive Bilateral Thrust Head Positive Bilateral Spontaneous Nystagmus Negative Positional Testing [place]-Hallpike Negative Left,Negative Right Rolling Test Negative Left,Negative Right PT-OP-Q Treatments Start: 05/05/23 15:26 Freq: Status: Active Protocol: Document 06/24/23 12:00 DCW (Rec: 06/24/23 12:49 DCW [id number]) Cardio Equipment Recumbent Elliptical ([employer]) Duration (Minutes) 6 Resistance 5 Seat Position 6 Other LEs only Manual Therapy Treatment Other Other Manual Treatments [place]-Hallpike, Roll testing, oculomotor testing Self-Care/Home Management Treatment Education Other Education Edu on vestibular system, cerebellum, potential causes of dizziness and vertigo PT-OP-R Modalities Start: 05/10/23 13:44 Freq: Status: Active Protocol: Document 05/17/23 13:06 SP (Rec: 05/17/23 13:48 SP [id number]) Electric Stimulation Electric Stimulation Eritrean Stimulation Body Location R Quad Intensity 45->50 Frequency 4 on/12 off Ramp 2.0 Patient Position Sitting Comments Attempted LAQ during on phase, AAROM PT-OP-T Assessment and Plan Start: 05/05/23 15:26 Freq: Status: Active Protocol: Document 06/24/23 12:00 DCW (Rec: 06/24/23 12:49 DCW [id number]) Physical Therapy Assessment Impairments Impairments Balance,Functional Activities, Functional Mobility,Pain,ROM, Sensation,Soft Tissue Mobility ,Strength,Tone,Transfers Goals Three Impairment Pt currently demonstrating 0/5 MMT right quad Penitentiary Goal (LTG) Pt to exhibit 2-/5 MMT or greater of right quad in order to improve ability to limit knee buckling. LTG Duration 08/03/23 Two Impairment Pt ambulates 174' during Two Minute Walk Test using FWW Repossession Agent Goal (LTG) Pt to exhibit ability to complete full 6MWT with no rest breaks using LRAD, ambulating >600' in order to demonstrate improve gait speed and activity tolerance LTG Duration 08/03/23 One Impairment Pt does not have an appropriate home exercise program Short Term Goal (STG) Pt to be independent and compliant with an appropriate HEP STG Duration 07/02/23 - improving Assessment Summary Assessment With pt's ongoing complaints of dizziness, she was told by a physician yesterday she may need vestibular therapy. Due to potential of inner ear dysfunction or BPPV to cause increase in instability, falls , and gait dysfunction, appropriate to perform screening of inner ear function in PT. Largely unremarkable at this time, no peripheral or central causes of dizziness noted. Did spend time reviewing vestibular and cerebellar function. May benefit from occasional positional re-testing to ensure no changes, due to potential of false negatives with BPPV. Physical Therapy Plan Frequency and Duration Frequency of Treatment 2x/Week Plan of Care Start Date 05/05/23 Plan of Care End Date 08/03/23 Therapeutic Interventions Therapeutic Interventions Balance Training,Coordination Training,Gait Training,Home Exercise Program,Joint Mobilizations,Manual Therapy, Neuromuscular Re-education, Patient/Caregiver Education, Self-Care/Home Management, Sensory Integration,Soft Tissue Mobilization, Therapeutic Activities, Therapeutic Exercises Modalities Cold Pack/Ice Massage,Electric Stimulation,Hot Packs, Ultrasound Next Visit Focus/Plan Next Note Type Treatment Note Next Visit Plan Continue functional RLE strengthening. POC: Transfers, 4WW practice, gait/balance training, ( parallel bars if 4WW not available ) e-stim for quad contraction. Possibly discontinue rolling from HEP, continue with tapping to facilitate quad as daniela.
--- NOTE | 2023-06-29 16:15 | PT.OTN ---
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, right leg, subsequent encounter (06/29/23) Other specified postprocedural states (06/29/23) Physical Therapy Treatment Note PT-OP-A Visit Information Start: 05/05/23 15:26 Freq: Status: Active Protocol: Document 06/29/23 13:00 AB (Rec: 06/29/23 16:15 AB [id number]) Out-Patient Physical Therapy Visit Information Visit Information Visit Type Treatment Note Visit Note Access Code [email or web address] Progress note due th visit Visit Start Time 14:35 Visit Stop Time 15:16 Visit Number 16 Number of FLY WORKER Visits 1 PT-OP-B Current Condition Start: 05/05/23 15:26 Freq: Status: Active Protocol: Document 05/05/23 13:50 DCW (Rec: 05/05/23 15:48 DCW [id number]) Current Condition History of Current Condition Onset Date 12/31/22 Current Complaints R LE weakness, falls, neuromuscular dysfunction History of Current Condition Pt is a 73 year old female presenting with a complex recent medical history. Pt was brought to ED on 12/31/22 by EMS for nausea, vomiting, and generalized weakness. Was found to have cerebellar bleed and was transferred to [facility]. 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 Pt was at [facility] for 5 1/2 weeks, and then transferred to a rehab facility in [place] for another two months. Pt reports that at [facility], she was up walking around fairly well, but then developed severe nerve pain in her right leg. Found to have a large hematoma in her right low back/hip which ended up compressing right LE nerves. This resulted in loss of motor function and sensory imput from right leg. Pt admits she was miserable waiting for the pain to stop. Due to motor dysfunction in her right leg, was having increased difficulty walking, and spent her time in rehab in a wheelchair. Leg weakness resulted in two fals, both of which yusef her right knee. Pt has recently been working with home health, and is now doing well enough to progress to out-patient PT. Has been walking at home with a FWW, just obtained a 4WW, but not comfortable with it yet. Reports she can get herself to the kitchen, and furniture surf using the countertop and cabinets, and is able to dress and perform pericare independently. Still requires assistance with showering. Has friend helping as caregiver. Treatment Goals Patient/Caregiver Goals Pt's stated goals are to learn how to properly use 4WW, get right LE moving better, and walk on her own. PT-OP-C Subjective Start: 05/05/23 15:26 Freq: Status: Active Protocol: Document 06/29/23 13:00 AB (Rec: 06/29/23 16:15 AB [id number]) OP-PT Subjective Patient Comments Patient Comments Patient reports she is using the counters when walking for UE support when cooking. unable to perform LAQ through ROM right LE start of session PT-OP-E Functional Tests Start: 05/05/23 15:26 Freq: Status: Active Protocol: Document 06/03/23 10:30 DCW (Rec: 06/03/23 10:42 DCW [id number]) Functional Tests 2 Minute Walk Test Distance 232' Device Used 4WW Comments 1.93 ft/sec 30 Second Sit to Stand Test Score x10 repetitions Comments UE use PT-OP-G Mobility & Gait Start: 05/05/23 15:26 Freq: Status: Active Protocol: Document 05/05/23 13:50 DCW (Rec: 05/05/23 15:48 DCW [id number]) OP Mobility Evaluation Transfers Sit to Stand SBA /c FWW Bed to Chair Transfers SBA /c FWW Wheelchair Management Type of Wheelchair Manual Assessment Details Propells with B UEs OP Gait Assessment Gait Gait Assistance Required: Standby Assistance Distance (Feet) 174 Assistive Devices Assistive Device Gait Belt,Front Wheeled Walker Comments Gait Comments Pt uses momentum to advance right leg during swing phase due to absent quad control. Good foot clearance. PT-OP-H Neuro Start: 05/05/23 15:26 Freq: Status: Active Protocol: Document 05/05/23 13:50 DCW (Rec: 05/05/23 15:48 DCW [id number]) Sensation Evaluation Gross Sensation Gross Sensation Right LE Impaired Sensation Description Numbness,Tingling PT-OP-M Strength Start: 05/05/23 15:26 Freq: Status: Active Protocol: Document 05/05/23 13:50 DCW (Rec: 05/05/23 16:00 DCW [id number]) Hip Strength Hip Manual Muscle Testing Right Flexion (L2) 2+ Poor+ Extension (S1) 4- Good- Abduction 2 Poor Adduction 2 Poor Left Flexion (L2) 4+ Good+ Extension (S1) 4+ Good+ Abduction 4+ Good+ Adduction 4+ Good+ Knee Strength Knee Manual Muscle Testing Right Flexion (S2) 4 Good Extension (L3) 0 Zero Left Flexion (S2) 5 Normal Extension (L3) 5 Normal Ankle/Foot Strength Ankle and Foot Manual Muscle Testing Right Dorsiflexion (L4) 4 Good Plantarflexion (S1) 4 Good Left Dorsiflexion (L4) 4+ Good+ Plantarflexion (S1) 4+ Good+ PT-OP-O Vestibular Start: 06/24/23 12:49 Freq: Status: Active Protocol: Document 06/24/23 12:00 DCW (Rec: 06/24/23 12:49 DCW [id number]) Vestibular Assessment Auditory Tests [place] Test Within normal limits Rinne Test Negative Air Conduction Results Equal Visual Testing Smooth Pursuits Horizontal WNL Smooth Pursuits Vertical WNL Saccades Horizontal WNL Heave Test Positive Bilateral Thrust Head Positive Bilateral Spontaneous Nystagmus Negative Positional Testing [place]-Hallpike Negative Left,Negative Right Rolling Test Negative Left,Negative Right PT-OP-Q Treatments Start: 05/05/23 15:26 Freq: Status: Active Protocol: Document 06/29/23 13:00 AB (Rec: 06/29/23 16:15 AB [id number]) Therapeutic Exercises Supine Exercises marching from hooklying Side right Reps/Minutes X5X2 Bridging Supine Exercise Name Bridging /c adductor ball squeeze Reps/Minutes 15 X2 hip add /abd hooklying Supine Exercise Name add with ball, abd with blue band above knees Reps/Minutes X10 each quad sets Supine Exercise Name with foam roller under knee and therapists fist under knee Reps/Minutes X10 each Sidelying Exercises sidelying knee extension Side right Reps/Minutes X10 Sitting Exercises tapping to facilitate quad with seated quad set Reps/Minutes X10 Standing Exercises step up Standing Exercise Name very light UE support on walker for 2 inch excessive use of walker 4 inch s Side right Equipment Used 2 inch step 4 inch step Reps/Minutes 2X10 2 inch step 1X10 4 inch elian SLS Standing Exercise Name one hand on/above locked walker other hand on/above therapist's shoulder Side right Reps/Minutes X6 Comments right knee guarded Toe-taps Standing Exercise Name with out UE use Side right Equipment Used 2 inch step Reps/Minutes X10 X 2 for hip flexion AROM Therapeutic Activity Therapeutic Activity transfers chair to chair 90 deg Name X3 each direction Comments CGA without walker Self-Care/Home Management Treatment Education Other Education Patient ed to use walker at all times. PT-OP-R Modalities Start: 05/10/23 13:44 Freq: Status: Active Protocol: Document 05/17/23 13:06 SP (Rec: 05/17/23 13:48 SP [id number]) Electric Stimulation Electric Stimulation [place]serratian Stimulation Body Location R Quad Intensity 45->50 Frequency 4 on/12 off Ramp 2.0 Patient Position Sitting Comments Attempted LAQ during on phase, AAROM PT-OP-T Assessment and Plan Start: 05/05/23 15:26 Freq: Status: Active Protocol: Document 06/29/23 13:00 AB (Rec: 06/29/23 16:15 AB [id number]) Physical Therapy Assessment Goals Three Impairment Pt currently demonstrating 0/5 MMT right quad Rn Procedure Goal (LTG) Pt to exhibit 2-/5 MMT or greater of right quad in order to improve ability to limit knee buckling. LTG Duration 08/03/23 Two Impairment Pt ambulates 174' during Two Minute Walk Test using FWW Correction Goal (LTG) Pt to exhibit ability to complete full 6MWT with no rest breaks using LRAD, ambulating >600' in order to demonstrate improve gait speed and activity tolerance LTG Duration 08/03/23 One Impairment Pt does not have an appropriate home exercise program Short Term Goal (STG) Pt to be independent and compliant with an appropriate HEP STG Duration 07/02/23 - improving Assessment Summary Assessment Lanette reports soreness right quad end of session. Good tolerance to 2 inch step up right LE with very little force through UE's, good control. Physical Therapy Plan Frequency and Duration Frequency of Treatment 2x/Week Plan of Care Start Date 05/05/23 Plan of Care End Date 08/03/23 Next Visit Focus/Plan Next Note Type Treatment Note Next Visit Plan Continue functional RLE strengthening. POC: Transfers, 4WW practice, gait/balance training, ( parallel bars if 4WW not available ) e-stim for quad contraction. Possibly discontinue rolling from HEP, continue with tapping to facilitate quad as daniela.
--- NOTE | 2023-07-01 15:14 | PT.OTN ---
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, right leg, subsequent encounter (07/01/23) Other specified postprocedural states (07/01/23) Physical Therapy Treatment Note PT-OP-A Visit Information Start: 05/05/23 15:26 Freq: Status: Active Protocol: Document 07/01/23 14:30 DCW (Rec: 07/01/23 15:14 DCW [id number]) Out-Patient Physical Therapy Visit Information Visit Information Visit Type Treatment Note Visit Start Time 14:30 Visit Stop Time 15:15 Visit Number 17 Number of TANK BUILDER SUPERVISOR Visits 0 Evaluation Information Evaluation Date 05/05/23 PT-OP-B Current Condition Start: 05/05/23 15:26 Freq: Status: Active Protocol: Document 05/05/23 13:50 DCW (Rec: 05/05/23 15:48 DCW [id number]) Current Condition History of Current Condition Onset Date 12/31/22 Current Complaints R LE weakness, falls, neuromuscular dysfunction History of Current Condition Pt is a 73 year old female presenting with a complex recent medical history. Pt was brought to ED on 12/31/22 by EMS for nausea, vomiting, and generalized weakness. Was found to have cerebellar bleed and was transferred to [facility]. 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 Pt was at [facility] for 5 1/2 weeks, and then transferred to a rehab facility in [place] for another two months. Pt reports that at [facility], she was up walking around fairly well, but then developed severe nerve pain in her right leg. Found to have a large hematoma in her right low back/hip which ended up compressing right LE nerves. This resulted in loss of motor function and sensory imput from right leg. Pt admits she was miserable waiting for the pain to stop. Due to motor dysfunction in her right leg, was having increased difficulty walking, and spent her time in rehab in a wheelchair. Leg weakness resulted in two fals, both of which yusef her right knee. Pt has recently been working with home health, and is now doing well enough to progress to out-patient PT. Has been walking at home with a FWW, just obtained a 4WW, but not comfortable with it yet. Reports she can get herself to the kitchen, and furniture surf using the countertop and cabinets, and is able to dress and perform pericare independently. Still requires assistance with showering. Has friend helping as caregiver. Treatment Goals Patient/Caregiver Goals Pt's stated goals are to learn how to properly use 4WW, get right LE moving better, and walk on her own. PT-OP-C Subjective Start: 05/05/23 15:26 Freq: Status: Active Protocol: Document 07/01/23 14:30 DCW (Rec: 07/01/23 15:14 DCW [id number]) OP-PT Subjective Patient Comments Patient Comments Reports her knee is still swollen, but it hasn't been buckling at all. PT-OP-E Functional Tests Start: 05/05/23 15:26 Freq: Status: Active Protocol: Document 06/03/23 10:30 DCW (Rec: 06/03/23 10:42 DCW [id number]) Functional Tests 2 Minute Walk Test Distance 232' Device Used 4WW Comments 1.93 ft/sec 30 Second Sit to Stand Test Score x10 repetitions Comments UE use PT-OP-G Mobility & Gait Start: 05/05/23 15:26 Freq: Status: Active Protocol: Document 05/05/23 13:50 DCW (Rec: 05/05/23 15:48 DCW [id number]) OP Mobility Evaluation Transfers Sit to Stand SBA /c FWW Bed to Chair Transfers SBA /c FWW Wheelchair Management Type of Wheelchair Manual Assessment Details Propells with B UEs OP Gait Assessment Gait Gait Assistance Required: Standby Assistance Distance (Feet) 174 Assistive Devices Assistive Device Gait Belt,Front Wheeled Walker Comments Gait Comments Pt uses momentum to advance right leg during swing phase due to absent quad control. Good foot clearance. PT-OP-H Neuro Start: 05/05/23 15:26 Freq: Status: Active Protocol: Document 05/05/23 13:50 DCW (Rec: 05/05/23 15:48 DCW [id number]) Sensation Evaluation Gross Sensation Gross Sensation Right LE Impaired Sensation Description Numbness,Tingling PT-OP-M Strength Start: 05/05/23 15:26 Freq: Status: Active Protocol: Document 05/05/23 13:50 DCW (Rec: 05/05/23 16:00 DCW [id number]) Hip Strength Hip Manual Muscle Testing Right Flexion (L2) 2+ Poor+ Extension (S1) 4- Good- Abduction 2 Poor Adduction 2 Poor Left Flexion (L2) 4+ Good+ Extension (S1) 4+ Good+ Abduction 4+ Good+ Adduction 4+ Good+ Knee Strength Knee Manual Muscle Testing Right Flexion (S2) 4 Good Extension (L3) 0 Zero Left Flexion (S2) 5 Normal Extension (L3) 5 Normal Ankle/Foot Strength Ankle and Foot Manual Muscle Testing Right Dorsiflexion (L4) 4 Good Plantarflexion (S1) 4 Good Left Dorsiflexion (L4) 4+ Good+ Plantarflexion (S1) 4+ Good+ PT-OP-O Vestibular Start: 06/24/23 12:49 Freq: Status: Active Protocol: Document 06/24/23 12:00 DCW (Rec: 06/24/23 12:49 DCW [id number]) Vestibular Assessment Auditory Tests [place] Test Within normal limits Rinne Test Negative Air Conduction Results Equal Visual Testing Smooth Pursuits Horizontal WNL Smooth Pursuits Vertical WNL Saccades Horizontal WNL Heave Test Positive Bilateral Thrust Head Positive Bilateral Spontaneous Nystagmus Negative Positional Testing Ortega-Hallpike Negative Left,Negative Right Rolling Test Negative Left,Negative Right PT-OP-Q Treatments Start: 05/05/23 15:26 Freq: Status: Active Protocol: Document 07/01/23 14:30 DCW (Rec: 07/01/23 15:14 DCW [id number]) Cardio Equipment Recumbent Elliptical ([employer]) Duration (Minutes) 6 Resistance 5 Seat Position 6 Other LEs only Gym Equipment Shuttle Recovery Bilateral Squats Resistance 50# (Two new) Shuttle Recovery Platform Unstable Unilateral Squats Resistance 25# (One new) Therapeutic Exercises Supine Exercises Bridging Supine Exercise Name Bridging /c adductor ball squeeze Reps/Minutes 15 X2 Comments VCs for glutes terminal knee extension against ball under foot Supine Exercise Name from ~20 deg flexion Side bilateral Reps/Minutes X10 Comments Improved recruitment with overflow from left quad sets Supine Exercise Name with foam roller under knee and therapists fist under knee Reps/Minutes X10 each Comments AAROM Standing Exercises step up Standing Exercise Name very light UE support on // bars Side right Equipment Used 4 inch step Reps/Minutes 2X10 Neuro Re-Education Treatment Balance Activities Tilt board Comments DF/PF, Lateral Foam Stance Details NBOS Surface AirEx Equipment // bars Comments EO/EC Stride Stance Details Stride /c mini lunge PT-OP-R Modalities Start: 05/10/23 13:44 Freq: Status: Active Protocol: Document 05/17/23 13:06 SP (Rec: 05/17/23 13:48 SP [id number]) Electric Stimulation Electric Stimulation Zambian Stimulation Body Location R Quad Intensity 45->50 Frequency 4 on/12 off Ramp 2.0 Patient Position Sitting Comments Attempted LAQ during on phase, AAROM PT-OP-T Assessment and Plan Start: 05/05/23 15:26 Freq: Status: Active Protocol: Document 07/01/23 14:30 DCW (Rec: 07/01/23 15:14 DCW [id number]) Physical Therapy Assessment Impairments Impairments Balance,Functional Activities, Functional Mobility,Pain,ROM, Sensation,Soft Tissue Mobility ,Strength,Tone,Transfers Goals Three Impairment Pt currently demonstrating 0/5 MMT right quad Brace End Mainspring Former Goal (LTG) Pt to exhibit 2-/5 MMT or greater of right quad in order to improve ability to limit knee buckling. LTG Duration 08/03/23 Two Impairment Pt ambulates 174' during Two Minute Walk Test using FWW Brace End Mainspring Former Goal (LTG) Pt to exhibit ability to complete full 6MWT with no rest breaks using LRAD, ambulating >600' in order to demonstrate improve gait speed and activity tolerance LTG Duration 08/03/23 One Impairment Pt does not have an appropriate home exercise program Short Term Goal (STG) Pt to be independent and compliant with an appropriate HEP STG Duration 07/02/23 - improving Assessment Summary Assessment Continuing to progress with stability using right leg, improving with quad contraction during functional mobility, still very difficult with volitional movement for AROM of right leg . Physical Therapy Plan Frequency and Duration Frequency of Treatment 2x/Week Plan of Care Start Date 05/05/23 Plan of Care End Date 08/03/23 Therapeutic Interventions Therapeutic Interventions Balance Training,Coordination Training,Gait Training,Home Exercise Program,Joint Mobilizations,Manual Therapy, Neuromuscular Re-education, Patient/Caregiver Education, Self-Care/Home Management, Sensory Integration,Soft Tissue Mobilization, Therapeutic Activities, Therapeutic Exercises Modalities Cold Pack/Ice Massage,Electric Stimulation,Hot Packs, Ultrasound Next Visit Focus/Plan Next Note Type Treatment Note Next Visit Plan Continue functional RLE strengthening. POC: Transfers, 4WW practice, gait/balance training, ( parallel bars if 4WW not available ) e-stim for quad contraction. Possibly discontinue rolling from HEP, continue with tapping to facilitate quad as daniela.
--- NOTE | 2023-07-07 16:24 | PT.OTN ---
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, right leg, subsequent encounter (07/07/23) Other specified postprocedural states (07/07/23) Physical Therapy Treatment Note PT-OP-A Visit Information Start: 05/05/23 15:26 Freq: Status: Active Protocol: Document 07/07/23 15:17 AB (Rec: 07/07/23 16:24 AB [id number]) Out-Patient Physical Therapy Visit Information Visit Information Visit Type Treatment Note Visit Note Access Code [email or web address] Progress note due th visit Visit Start Time 15:18 Visit Stop Time 16:06 Visit Number 18 Number of NEWSPAPER DELIVERER Visits 1 Evaluation Information Evaluation Date 05/05/23 PT-OP-B Current Condition Start: 05/05/23 15:26 Freq: Status: Active Protocol: Document 05/05/23 13:50 DCW (Rec: 05/05/23 15:48 DCW [id number]) Current Condition History of Current Condition Onset Date 12/31/22 Current Complaints R LE weakness, falls, neuromuscular dysfunction History of Current Condition Pt is a 73 year old female presenting with a complex recent medical history. Pt was brought to ED on 12/31/22 by EMS for nausea, vomiting, and generalized weakness. Was found to have cerebellar bleed and was transferred to [facility]. 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 Pt was at [facility] for 5 1/2 weeks, and then transferred to a rehab facility in [place] for another two months. Pt reports that at [facility], she was up walking around fairly well, but then developed severe nerve pain in her right leg. Found to have a large hematoma in her right low back/hip which ended up compressing right LE nerves. This resulted in loss of motor function and sensory imput from right leg. Pt admits she was miserable waiting for the pain to stop. Due to motor dysfunction in her right leg, was having increased difficulty walking, and spent her time in rehab in a wheelchair. Leg weakness resulted in two fals, both of which yusef her right knee. Pt has recently been working with home health, and is now doing well enough to progress to out-patient PT. Has been walking at home with a FWW, just obtained a 4WW, but not comfortable with it yet. Reports she can get herself to the kitchen, and furniture surf using the countertop and cabinets, and is able to dress and perform pericare independently. Still requires assistance with showering. Has friend helping as caregiver. Treatment Goals Patient/Caregiver Goals Pt's stated goals are to learn how to properly use 4WW, get right LE moving better, and walk on her own. PT-OP-C Subjective Start: 05/05/23 15:26 Freq: Status: Active Protocol: Document 07/07/23 15:17 AB (Rec: 07/07/23 16:24 AB [id number]) OP-PT Subjective Patient Comments Patient Comments Lanette reports the knee is swollen, which is annoying. Patient reports having no buckling, falls or near falls. Patient reports that she is behaving with the walker. PT-OP-E Functional Tests Start: 05/05/23 15:26 Freq: Status: Active Protocol: Document 06/03/23 10:30 DCW (Rec: 06/03/23 10:42 DCW [id number]) Functional Tests 2 Minute Walk Test Distance 232' Device Used 4WW Comments 1.93 ft/sec 30 Second Sit to Stand Test Score x10 repetitions Comments UE use PT-OP-G Mobility & Gait Start: 05/05/23 15:26 Freq: Status: Active Protocol: Document 05/05/23 13:50 DCW (Rec: 05/05/23 15:48 DCW [id number]) OP Mobility Evaluation Transfers Sit to Stand SBA /c FWW Bed to Chair Transfers SBA /c FWW Wheelchair Management Type of Wheelchair Manual Assessment Details Propells with B UEs OP Gait Assessment Gait Gait Assistance Required: Standby Assistance Distance (Feet) 174 Assistive Devices Assistive Device Gait Belt,Front Wheeled Walker Comments Gait Comments Pt uses momentum to advance right leg during swing phase due to absent quad control. Good foot clearance. PT-OP-H Neuro Start: 05/05/23 15:26 Freq: Status: Active Protocol: Document 05/05/23 13:50 DCW (Rec: 05/05/23 15:48 DCW [id number]) Sensation Evaluation Gross Sensation Gross Sensation Right LE Impaired Sensation Description Numbness,Tingling PT-OP-M Strength Start: 05/05/23 15:26 Freq: Status: Active Protocol: Document 05/05/23 13:50 DCW (Rec: 05/05/23 16:00 DCW [id number]) Hip Strength Hip Manual Muscle Testing Right Flexion (L2) 2+ Poor+ Extension (S1) 4- Good- Abduction 2 Poor Adduction 2 Poor Left Flexion (L2) 4+ Good+ Extension (S1) 4+ Good+ Abduction 4+ Good+ Adduction 4+ Good+ Knee Strength Knee Manual Muscle Testing Right Flexion (S2) 4 Good Extension (L3) 0 Zero Left Flexion (S2) 5 Normal Extension (L3) 5 Normal Ankle/Foot Strength Ankle and Foot Manual Muscle Testing Right Dorsiflexion (L4) 4 Good Plantarflexion (S1) 4 Good Left Dorsiflexion (L4) 4+ Good+ Plantarflexion (S1) 4+ Good+ PT-OP-O Vestibular Start: 06/24/23 12:49 Freq: Status: Active Protocol: Document 06/24/23 12:00 DCW (Rec: 06/24/23 12:49 DCW [id number]) Vestibular Assessment Auditory Tests Zurtia Test Within normal limits Rinne Test Negative Air Conduction Results Equal Visual Testing Smooth Pursuits Horizontal WNL Smooth Pursuits Vertical WNL Saccades Horizontal WNL Heave Test Positive Bilateral Thrust Head Positive Bilateral Spontaneous Nystagmus Negative Positional Testing Ortega-Hallpike Negative Left,Negative Right Rolling Test Negative Left,Negative Right PT-OP-Q Treatments Start: 05/05/23 15:26 Freq: Status: Active Protocol: Document 07/07/23 15:17 AB (Rec: 07/07/23 16:24 AB [id number]) Therapeutic Exercises Supine Exercises AA slr Reps/Minutes X12 Comments post manual therapy Sitting Exercises hamstring stretch Sitting Exercise Name LE resting on therapist while patient seated Reps/Minutes one minute Comments Patient/family ed to position pillow under ankle seated hip adduction Resistance ball Reps/Minutes X10 X 2 Comments monitored for pain seated hip abduction Equipment Used teal band Reps/Minutes 2X10 w/o hold then one one minute hold Comments Verbal cues Standing Exercises stagger stance sit to stand Standing Exercise Name right LE back Reps/Minutes X12 and then X5 for spouse training Comments Patient/family ed for spouse to hold gait belt step up Standing Exercise Name CGA Side right Equipment Used 2 inch scale Reps/Minutes 2X12 SLS Standing Exercise Name without UE use Side right Reps/Minutes X6(1 sec) Comments initiated with UE blocked then performed with knee very closely guarded Abduction Standing Exercise Name Hip Abduction Side bilateral Resistance 4# Equipment Used // bars Manual Therapy Treatment Soft Tissue Mobilization STM quad and hamstring right Le Body Location for swelling, increased tissue density distal quad and hamstring stiffness Mobilization Type Cross-Friction,Rolling Intensity/Depth Moderate Body Position Hooklying Comments Monitored for pain Manual Techniques hamstring stretch Type contract relax Body Location right LE Body Position from hooklying Reps/Duration X2 60 seconds PT-OP-R Modalities Start: 05/10/23 13:44 Freq: Status: Active Protocol: Document 05/17/23 13:06 SP (Rec: 05/17/23 13:48 SP [id number]) Electric Stimulation Electric Stimulation Liberian Stimulation Body Location R Quad Intensity 45->50 Frequency 4 on/12 off Ramp 2.0 Patient Position Sitting Comments Attempted LAQ during on phase, AAROM PT-OP-T Assessment and Plan Start: 05/05/23 15:26 Freq: Status: Active Protocol: Document 07/07/23 15:17 AB (Rec: 07/07/23 16:24 AB [id number]) Physical Therapy Assessment Goals Three Impairment Pt currently demonstrating 0/5 MMT right quad Alf Goal (LTG) Pt to exhibit 2-/5 MMT or greater of right quad in order to improve ability to limit knee buckling. LTG Duration 08/03/23 Two Impairment Pt ambulates 174' during Two Minute Walk Test using FWW Nutritionist Goal (LTG) Pt to exhibit ability to complete full 6MWT with no rest breaks using LRAD, ambulating >600' in order to demonstrate improve gait speed and activity tolerance LTG Duration 08/03/23 One Impairment Pt does not have an appropriate home exercise program Short Term Goal (STG) Pt to be independent and compliant with an appropriate HEP STG Duration 07/02/23 - improving Physical Therapy Plan Next Visit Focus/Plan Next Note Type Treatment Note Next Visit Plan Continue functional RLE strengthening. POC: Transfers, 4WW practice, gait/balance training, ( parallel bars if 4WW not available ) e-stim for quad contraction. continue with tapping to facilitate quad as daniela.
--- NOTE | 2023-07-09 11:36 | PT.OTN ---
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, right leg, subsequent encounter (07/09/23) Other specified postprocedural states (07/09/23) Physical Therapy Treatment Note PT-OP-A Visit Information Start: 05/05/23 15:26 Freq: Status: Active Protocol: Document 07/09/23 10:15 AB (Rec: 07/09/23 11:34 AB [id number]) Out-Patient Physical Therapy Visit Information Visit Information Visit Type Treatment Note Visit Note Access Code [email or web address] Progress note due 24th visit Visit Start Time 10:32 Visit Stop Time 11:28 Visit Number 19 Number of MANAGER NC Visits 2 Evaluation Information Evaluation Date 05/05/23 PT-OP-B Current Condition Start: 05/05/23 15:26 Freq: Status: Active Protocol: Document 05/05/23 13:50 DCW (Rec: 05/05/23 15:48 DCW [id number]) Current Condition History of Current Condition Onset Date 12/31/22 Current Complaints R LE weakness, falls, neuromuscular dysfunction History of Current Condition Pt is a 73 year old female presenting with a complex recent medical history. Pt was brought to ED on 12/31/22 by EMS for nausea, vomiting, and generalized weakness. Was found to have cerebellar bleed and was transferred to [facility]. 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 Pt was at [facility] for 5 1/2 weeks, and then transferred to a rehab facility in [place] for another two months. Pt reports that at [facility], she was up walking around fairly well, but then developed severe nerve pain in her right leg. Found to have a large hematoma in her right low back/hip which ended up compressing right LE nerves. This resulted in loss of motor function and sensory imput from right leg. Pt admits she was miserable waiting for the pain to stop. Due to motor dysfunction in her right leg, was having increased difficulty walking, and spent her time in rehab in a wheelchair. Leg weakness resulted in two fals, both of which yusef her right knee. Pt has recently been working with home health, and is now doing well enough to progress to out-patient PT. Has been walking at home with a FWW, just obtained a 4WW, but not comfortable with it yet. Reports she can get herself to the kitchen, and furniture surf using the countertop and cabinets, and is able to dress and perform pericare independently. Still requires assistance with showering. Has friend helping as caregiver. Treatment Goals Patient/Caregiver Goals Pt's stated goals are to learn how to properly use 4WW, get right LE moving better, and walk on her own. PT-OP-C Subjective Start: 05/05/23 15:26 Freq: Status: Active Protocol: Document 07/09/23 10:15 AB (Rec: 07/09/23 11:34 AB [id number]) OP-PT Subjective Patient Comments Patient Comments Patient reports the knee felt good post previous session, but then was painful and stiff 2-3 hours later. Lanette rates knee pain 2-3/10 now ambulating into session with 4 wheeled walker. PT-OP-E Functional Tests Start: 05/05/23 15:26 Freq: Status: Active Protocol: Document 06/03/23 10:30 DCW (Rec: 06/03/23 10:42 DCW [id number]) Functional Tests 2 Minute Walk Test Distance 232' Device Used 4WW Comments 1.93 ft/sec 30 Second Sit to Stand Test Score x10 repetitions Comments UE use PT-OP-G Mobility & Gait Start: 05/05/23 15:26 Freq: Status: Active Protocol: Document 05/05/23 13:50 DCW (Rec: 05/05/23 15:48 DCW [id number]) OP Mobility Evaluation Transfers Sit to Stand SBA /c FWW Bed to Chair Transfers SBA /c FWW Wheelchair Management Type of Wheelchair Manual Assessment Details Propells with B UEs OP Gait Assessment Gait Gait Assistance Required: Standby Assistance Distance (Feet) 174 Assistive Devices Assistive Device Gait Belt,Front Wheeled Walker Comments Gait Comments Pt uses momentum to advance right leg during swing phase due to absent quad control. Good foot clearance. PT-OP-H Neuro Start: 05/05/23 15:26 Freq: Status: Active Protocol: Document 05/05/23 13:50 DCW (Rec: 05/05/23 15:48 DCW [id number]) Sensation Evaluation Gross Sensation Gross Sensation Right LE Impaired Sensation Description Numbness,Tingling PT-OP-M Strength Start: 05/05/23 15:26 Freq: Status: Active Protocol: Document 05/05/23 13:50 DCW (Rec: 05/05/23 16:00 DCW [id number]) Hip Strength Hip Manual Muscle Testing Right Flexion (L2) 2+ Poor+ Extension (S1) 4- Good- Abduction 2 Poor Adduction 2 Poor Left Flexion (L2) 4+ Good+ Extension (S1) 4+ Good+ Abduction 4+ Good+ Adduction 4+ Good+ Knee Strength Knee Manual Muscle Testing Right Flexion (S2) 4 Good Extension (L3) 0 Zero Left Flexion (S2) 5 Normal Extension (L3) 5 Normal Ankle/Foot Strength Ankle and Foot Manual Muscle Testing Right Dorsiflexion (L4) 4 Good Plantarflexion (S1) 4 Good Left Dorsiflexion (L4) 4+ Good+ Plantarflexion (S1) 4+ Good+ PT-OP-O Vestibular Start: 06/24/23 12:49 Freq: Status: Active Protocol: Document 06/24/23 12:00 DCW (Rec: 06/24/23 12:49 DCW [id number]) Vestibular Assessment Auditory Tests Zurita Test Within normal limits Rinne Test Negative Air Conduction Results Equal Visual Testing Smooth Pursuits Horizontal WNL Smooth Pursuits Vertical WNL Saccades Horizontal WNL Heave Test Positive Bilateral Thrust Head Positive Bilateral Spontaneous Nystagmus Negative Positional Testing Elma-Hallpike Negative Left,Negative Right Rolling Test Negative Left,Negative Right PT-OP-Q Treatments Start: 05/05/23 15:26 Freq: Status: Active Protocol: Document 07/09/23 10:15 AB (Rec: 07/09/23 11:34 AB [id number]) Therapeutic Exercises Supine Exercises quad sets Supine Exercise Name pillow and 1/2 foam roll under , pillow under, then towel under knee Reps/Minutes 3X10 ( X10 each position noted above) Comments VC to quad set Sitting Exercises seated SLR Sitting Exercise Name with tapping to facilitate quads Side right Manual Therapy Treatment Soft Tissue Mobilization STM quad and hamstring right Le Body Location for swelling, increased tissue density distal quad and hamstring stiffness Mobilization Type Cross-Friction,Rolling Intensity/Depth Moderate Body Position Hooklying Comments Monitored for pain Manual Techniques PROM hamstring stretch right LE Body Location right hamstring Body Position Hooklying Reps/Duration contract relax X3 Comments post STM PT-OP-R Modalities Start: 05/10/23 13:44 Freq: Status: Active Protocol: Document 07/09/23 10:15 AB (Rec: 07/09/23 11:36 AB [id number]) Electric Stimulation Electric Stimulation Bulgarian Stimulation Body Location right quad Intensity 25 Ramp 0.5 Comments 10 on 30 off, performed quad sets, sidelying knee extension from ~90 deg flexion, LAQ AA as unable on initial trials PT-OP-T Assessment and Plan Start: 05/05/23 15:26 Freq: Status: Active Protocol: Document 07/09/23 10:15 AB (Rec: 07/09/23 11:34 AB [id number]) Physical Therapy Assessment Goals Three Impairment Pt currently demonstrating 0/5 MMT right quad School Photographs Detailer Goal (LTG) Pt to exhibit 2-/5 MMT or greater of right quad in order to improve ability to limit knee buckling. LTG Duration 08/03/23 Two Impairment Pt ambulates 174' during Two Minute Walk Test using FWW School Photographs Detailer Goal (LTG) Pt to exhibit ability to complete full 6MWT with no rest breaks using LRAD, ambulating >600' in order to demonstrate improve gait speed and activity tolerance LTG Duration 08/03/23 One Impairment Pt does not have an appropriate home exercise program Short Term Goal (STG) Pt to be independent and compliant with an appropriate HEP STG Duration 07/02/23 - improving Assessment Summary Assessment Lanette is still unable to perform a long arc quad, is able to extend the right knee in sidelying, performed seated SLR with quad lag post tapping to facilitate quad with a few repetitions lacking grossly less than 10 deg. Lanette reports feeling looser end of session. Physical Therapy Plan Frequency and Duration Frequency of Treatment 2x/Week Plan of Care Start Date 05/05/23 Plan of Care End Date 08/03/23 Next Visit Focus/Plan Next Note Type Treatment Note Next Visit Plan Continue functional RLE strengthening. POC: Transfers, 4WW practice, gait/balance training, ( parallel bars if 4WW not available ) e-stim for quad contraction. continue with tapping to facilitate quad as daniela. Assess daniela to previous 2 session ie pain 2-3 hours post session.
--- NOTE | 2023-07-13 12:46 | PT.OTN ---
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, right leg, subsequent encounter (07/13/23) Other specified postprocedural states (07/13/23) Physical Therapy Treatment Note PT-OP-A Visit Information Start: 05/05/23 15:26 Freq: Status: Active Protocol: Document 07/13/23 12:00 DCW (Rec: 07/13/23 12:46 DCW [id number]) Out-Patient Physical Therapy Visit Information Visit Information Visit Type Treatment Note Visit Note Progress note due visit Visit Start Time 12:00 Visit Stop Time 12:45 Visit Number 20 Number of SPECIAL PROJECTS MANAGER Visits 0 Evaluation Information Evaluation Date 05/05/23 PT-OP-B Current Condition Start: 05/05/23 15:26 Freq: Status: Active Protocol: Document 05/05/23 13:50 DCW (Rec: 05/05/23 15:48 DCW [id number]) Current Condition History of Current Condition Onset Date 12/31/22 Current Complaints R LE weakness, falls, neuromuscular dysfunction History of Current Condition Pt is a 73 year old female presenting with a complex recent medical history. Pt was brought to ED on 12/31/22 by EMS for nausea, vomiting, and generalized weakness. Was found to have cerebellar bleed and was transferred to [facility]. 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 Pt was at [facility] for 5 1/2 weeks, and then transferred to a rehab facility in [place] for another two months. Pt reports that at [facility], she was up walking around fairly well, but then developed severe nerve pain in her right leg. Found to have a large hematoma in her right low back/hip which ended up compressing right LE nerves. This resulted in loss of motor function and sensory imput from right leg. Pt admits she was miserable waiting for the pain to stop. Due to motor dysfunction in her right leg, was having increased difficulty walking, and spent her time in rehab in a wheelchair. Leg weakness resulted in two fals, both of which yusef her right knee. Pt has recently been working with home health, and is now doing well enough to progress to out-patient PT. Has been walking at home with a FWW, just obtained a 4WW, but not comfortable with it yet. Reports she can get herself to the kitchen, and furniture surf using the countertop and cabinets, and is able to dress and perform pericare independently. Still requires assistance with showering. Has friend helping as caregiver. Treatment Goals Patient/Caregiver Goals Pt's stated goals are to learn how to properly use 4WW, get right LE moving better, and walk on her own. PT-OP-C Subjective Start: 05/05/23 15:26 Freq: Status: Active Protocol: Document 07/13/23 12:00 DCW (Rec: 07/13/23 12:46 DCW [id number]) OP-PT Subjective Patient Comments Patient Comments Pt reports she is fatigued today after spending a lot of time yesterday standing while cooking. PT-OP-E Functional Tests Start: 05/05/23 15:26 Freq: Status: Active Protocol: Document 06/03/23 10:30 DCW (Rec: 06/03/23 10:42 DCW [id number]) Functional Tests 2 Minute Walk Test Distance 232' Device Used 4WW Comments 1.93 ft/sec 30 Second Sit to Stand Test Score x10 repetitions Comments UE use PT-OP-G Mobility & Gait Start: 05/05/23 15:26 Freq: Status: Active Protocol: Document 05/05/23 13:50 DCW (Rec: 05/05/23 15:48 DCW [id number]) OP Mobility Evaluation Transfers Sit to Stand SBA /c FWW Bed to Chair Transfers SBA /c FWW Wheelchair Management Type of Wheelchair Manual Assessment Details Propells with B UEs OP Gait Assessment Gait Gait Assistance Required: Standby Assistance Distance (Feet) 174 Assistive Devices Assistive Device Gait Belt,Front Wheeled Walker Comments Gait Comments Pt uses momentum to advance right leg during swing phase due to absent quad control. Good foot clearance. PT-OP-H Neuro Start: 05/05/23 15:26 Freq: Status: Active Protocol: Document 05/05/23 13:50 DCW (Rec: 05/05/23 15:48 DCW [id number]) Sensation Evaluation Gross Sensation Gross Sensation Right LE Impaired Sensation Description Numbness,Tingling PT-OP-M Strength Start: 05/05/23 15:26 Freq: Status: Active Protocol: Document 05/05/23 13:50 DCW (Rec: 05/05/23 16:00 DCW [id number]) Hip Strength Hip Manual Muscle Testing Right Flexion (L2) 2+ Poor+ Extension (S1) 4- Good- Abduction 2 Poor Adduction 2 Poor Left Flexion (L2) 4+ Good+ Extension (S1) 4+ Good+ Abduction 4+ Good+ Adduction 4+ Good+ Knee Strength Knee Manual Muscle Testing Right Flexion (S2) 4 Good Extension (L3) 0 Zero Left Flexion (S2) 5 Normal Extension (L3) 5 Normal Ankle/Foot Strength Ankle and Foot Manual Muscle Testing Right Dorsiflexion (L4) 4 Good Plantarflexion (S1) 4 Good Left Dorsiflexion (L4) 4+ Good+ Plantarflexion (S1) 4+ Good+ PT-OP-O Vestibular Start: 06/24/23 12:49 Freq: Status: Active Protocol: Document 06/24/23 12:00 DCW (Rec: 06/24/23 12:49 DCW [id number]) Vestibular Assessment Auditory Tests Zurita Test Within normal limits Rinne Test Negative Air Conduction Results Equal Visual Testing Smooth Pursuits Horizontal WNL Smooth Pursuits Vertical WNL Saccades Horizontal WNL Heave Test Positive Bilateral Thrust Head Positive Bilateral Spontaneous Nystagmus Negative Positional Testing Ortega-Hallpike Negative Left,Negative Right Rolling Test Negative Left,Negative Right PT-OP-Q Treatments Start: 05/05/23 15:26 Freq: Status: Active Protocol: Document 07/13/23 12:00 DCW (Rec: 07/13/23 12:46 DCW [id number]) Cardio Equipment Recumbent Elliptical (Biodex) Duration (Minutes) 6 Resistance 5 Seat Position 7 Other LEs only Gym Equipment Shuttle Recovery Bilateral Squats Resistance 50# (Two new) Shuttle Recovery Platform Unstable Unilateral Squats Resistance 25# (One new) Therapeutic Exercises Sitting Exercises LAQ Sitting Exercise Name focus on eccentric lowering AA Side right Reps/Minutes X10 Standing Exercises Sliders Standing Exercise Name Flexion/Abduction on furniture slider Side bilateral Comments UR assist, Min Ax1 Gait Training Gait Activity Cane Comments Gait training /c SBQC and SPC, sequencing, PT-OP-R Modalities Start: 05/10/23 13:44 Freq: Status: Active Protocol: Document 07/09/23 10:15 AB (Rec: 07/09/23 11:36 AB [id number]) Electric Stimulation Electric Stimulation Vincentian Stimulation Body Location right quad Intensity 25 Ramp 0.5 Comments 10 on 30 off, performed quad sets, sidelying knee extension from ~90 deg flexion, LAQ AA as unable on initial trials PT-OP-T Assessment and Plan Start: 05/05/23 15:26 Freq: Status: Active Protocol: Document 07/13/23 12:00 DCW (Rec: 07/13/23 12:46 DCW [id number]) Physical Therapy Assessment Goals Three Impairment Pt currently demonstrating 0/5 MMT right quad Sporting Goods Sales Manager Goal (LTG) Pt to exhibit 2-/5 MMT or greater of right quad in order to improve ability to limit knee buckling. LTG Duration 08/03/23 Two Impairment Pt ambulates 174' during Two Minute Walk Test using FWW Prison Goal (LTG) Pt to exhibit ability to complete full 6MWT with no rest breaks using LRAD, ambulating >600' in order to demonstrate improve gait speed and activity tolerance LTG Duration 08/03/23 One Impairment Pt does not have an appropriate home exercise program Short Term Goal (STG) Pt to be independent and compliant with an appropriate HEP STG Duration 07/02/23 - improving Assessment Summary Assessment Mild improvements with quad contraction, showing some improvements with quad stabilizing while in standing. Physical Therapy Plan Frequency and Duration Frequency of Treatment 2x/Week Plan of Care Start Date 05/05/23 Plan of Care End Date 08/03/23 Next Visit Focus/Plan Next Note Type Treatment Note Next Visit Plan Continue functional RLE strengthening. POC: Transfers, 4WW practice, gait/balance training, ( parallel bars if 4WW not available ) e-stim for quad contraction. continue with tapping to facilitate quad as daniela. Assess daniela to previous 2 session ie pain 2-3 hours post session.
--- NOTE | 2023-07-15 14:56 | PT.OTN ---
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, right leg, subsequent encounter (07/15/23) Other specified postprocedural states (07/15/23) Physical Therapy Treatment Note PT-OP-A Visit Information Start: 05/05/23 15:26 Freq: Status: Active Protocol: Document 07/15/23 09:38 AB (Rec: 07/15/23 14:56 AB [id number]) Out-Patient Physical Therapy Visit Information Visit Information Visit Type Treatment Note Visit Note Access Code [email or web address] Progress note due visit Visit Start Time 11:18 Visit Stop Time 12:01 Visit Number 21 Number of PAINT MAKER Visits 1 Evaluation Information Evaluation Date 05/05/23 PT-OP-B Current Condition Start: 05/05/23 15:26 Freq: Status: Active Protocol: Document 05/05/23 13:50 DCW (Rec: 05/05/23 15:48 DCW [id number]) Current Condition History of Current Condition Onset Date 12/31/22 Current Complaints R LE weakness, falls, neuromuscular dysfunction History of Current Condition Pt is a 73 year old female presenting with a complex recent medical history. Pt was brought to ED on 12/31/22 by EMS for nausea, vomiting, and generalized weakness. Was found to have cerebellar bleed and was transferred to [facility]. 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 Pt was at [facility] for 5 1/2 weeks, and then transferred to a rehab facility in [place] for another two months. Pt reports that at [facility], she was up walking around fairly well, but then developed severe nerve pain in her right leg. Found to have a large hematoma in her right low back/hip which ended up compressing right LE nerves. This resulted in loss of motor function and sensory imput from right leg. Pt admits she was miserable waiting for the pain to stop. Due to motor dysfunction in her right leg, was having increased difficulty walking, and spent her time in rehab in a wheelchair. Leg weakness resulted in two fals, both of which yusef her right knee. Pt has recently been working with home health, and is now doing well enough to progress to out-patient PT. Has been walking at home with a FWW, just obtained a 4WW, but not comfortable with it yet. Reports she can get herself to the kitchen, and furniture surf using the countertop and cabinets, and is able to dress and perform pericare independently. Still requires assistance with showering. Has friend helping as caregiver. Treatment Goals Patient/Caregiver Goals Pt's stated goals are to learn how to properly use 4WW, get right LE moving better, and walk on her own. PT-OP-C Subjective Start: 05/05/23 15:26 Freq: Status: Active Protocol: Document 07/15/23 09:38 AB (Rec: 07/15/23 14:56 AB [id number]) OP-PT Subjective Patient Comments Patient Comments Patient reports she was not sore post previous session, just tired. Patient reports she went to dentist and [employer] after and was tired, had to go to bed early. Patient reports no knee pain ambulating into session with 4 wheeled walker. PT-OP-E Functional Tests Start: 05/05/23 15:26 Freq: Status: Active Protocol: Document 06/03/23 10:30 DCW (Rec: 06/03/23 10:42 DCW [id number]) Functional Tests 2 Minute Walk Test Distance 232' Device Used 4WW Comments 1.93 ft/sec 30 Second Sit to Stand Test Score x10 repetitions Comments UE use PT-OP-G Mobility & Gait Start: 05/05/23 15:26 Freq: Status: Active Protocol: Document 05/05/23 13:50 DCW (Rec: 05/05/23 15:48 DCW [id number]) OP Mobility Evaluation Transfers Sit to Stand SBA /c FWW Bed to Chair Transfers SBA /c FWW Wheelchair Management Type of Wheelchair Manual Assessment Details Propells with B UEs OP Gait Assessment Gait Gait Assistance Required: Standby Assistance Distance (Feet) 174 Assistive Devices Assistive Device Gait Belt,Front Wheeled Walker Comments Gait Comments Pt uses momentum to advance right leg during swing phase due to absent quad control. Good foot clearance. PT-OP-H Neuro Start: 05/05/23 15:26 Freq: Status: Active Protocol: Document 05/05/23 13:50 DCW (Rec: 05/05/23 15:48 DCW [id number]) Sensation Evaluation Gross Sensation Gross Sensation Right LE Impaired Sensation Description Numbness,Tingling PT-OP-M Strength Start: 05/05/23 15:26 Freq: Status: Active Protocol: Document 05/05/23 13:50 DCW (Rec: 05/05/23 16:00 DCW [id number]) Hip Strength Hip Manual Muscle Testing Right Flexion (L2) 2+ Poor+ Extension (S1) 4- Good- Abduction 2 Poor Adduction 2 Poor Left Flexion (L2) 4+ Good+ Extension (S1) 4+ Good+ Abduction 4+ Good+ Adduction 4+ Good+ Knee Strength Knee Manual Muscle Testing Right Flexion (S2) 4 Good Extension (L3) 0 Zero Left Flexion (S2) 5 Normal Extension (L3) 5 Normal Ankle/Foot Strength Ankle and Foot Manual Muscle Testing Right Dorsiflexion (L4) 4 Good Plantarflexion (S1) 4 Good Left Dorsiflexion (L4) 4+ Good+ Plantarflexion (S1) 4+ Good+ PT-OP-O Vestibular Start: 06/24/23 12:49 Freq: Status: Active Protocol: Document 06/24/23 12:00 DCW (Rec: 06/24/23 12:49 DCW [id number]) Vestibular Assessment Auditory Tests Zurita Test Within normal limits Rinne Test Negative Air Conduction Results Equal Visual Testing Smooth Pursuits Horizontal WNL Smooth Pursuits Vertical WNL Saccades Horizontal WNL Heave Test Positive Bilateral Thrust Head Positive Bilateral Spontaneous Nystagmus Negative Positional Testing Ortega-Hallpike Negative Left,Negative Right Rolling Test Negative Left,Negative Right PT-OP-Q Treatments Start: 05/05/23 15:26 Freq: Status: Active Protocol: Document 07/15/23 09:38 AB (Rec: 07/15/23 14:56 AB [id number]) Therapeutic Exercises Sitting Exercises seated SLR Sitting Exercise Name with tapping to facilitate quads Side right Reps/Minutes 10 seated hip abduction Equipment Used level 2 teal band, [place] green level 3 band Reps/Minutes 2X10 w/o hold then one one minute hold each color Comments Verbal cues Standing Exercises single leg heel raise Standing Exercise Name with UE support Side right Reps/Minutes 2X10 Comments VC to lower heel to floor slowly lateral step up Standing Exercise Name left UE use Side right Equipment Used 2 inch step Reps/Minutes 2X10 on step Comments right knee guarded, VC to bend knee slowly with step down SLS Standing Exercise Name right LE on scale with UE use Side right Reps/Minutes 2 min Comments to 140 lb of force no buckling Gait Training Gait Activity Cane Comments SPC adjusted for height, verbal cues to avoid looking at feet, and scan the floor in the distance, and for UE position on chair with sit to stand with cane left UE. 2 min walk test with SPC 173 feet with CGA. Neuro Re-Education Treatment Balance Activities step up taps alternating Details CGA patient hands above bars to use as needed Reps/Duration X12 retro stepping Details CGA patient hands above bars to use as needed Reps/Duration 10 feet X 3 tandem stepping Details CGA patient hands above bars to use as needed Reps/Duration 10 feet X 3 PT-OP-R Modalities Start: 05/10/23 13:44 Freq: Status: Active Protocol: Document 07/09/23 10:15 AB (Rec: 07/09/23 11:36 AB [id number]) Electric Stimulation Electric Stimulation Zambian Stimulation Body Location right quad Intensity 25 Ramp 0.5 Comments 10 on 30 off, performed quad sets, sidelying knee extension from ~90 deg flexion, LAQ AA as unable on initial trials PT-OP-T Assessment and Plan Start: 05/05/23 15:26 Freq: Status: Active Protocol: Document 07/15/23 09:38 AB (Rec: 07/15/23 14:56 AB [id number]) Physical Therapy Assessment Goals Three Impairment Pt currently demonstrating 0/5 MMT right quad [place] Goal (LTG) Pt to exhibit 2-/5 MMT or greater of right quad in order to improve ability to limit knee buckling. LTG Duration 08/03/23 Two Impairment Pt ambulates 174' during Two Minute Walk Test using FWW Residential Goal (LTG) Pt to exhibit ability to complete full 6MWT with no rest breaks using LRAD, ambulating >600' in order to demonstrate improve gait speed and activity tolerance LTG Duration 08/03/23 One Impairment Pt does not have an appropriate home exercise program Short Term Goal (STG) Pt to be independent and compliant with an appropriate HEP STG Duration 07/02/23 - improving Assessment Summary Assessment 2 minute walk test with SPC CGA 173 feet. Good tolerance to progression of bands for hip strengthening and activation. Patient comments she is going to take a nap post this session. Physical Therapy Plan Frequency and Duration Frequency of Treatment 2x/Week Plan of Care Start Date 05/05/23 Plan of Care End Date 08/03/23 Next Visit Focus/Plan Next Note Type Treatment Note Next Visit Plan Continue functional RLE strengthening. POC: Transfers, 4WW practice, gait/balance training, ( parallel bars if 4WW not available ) e-stim for quad contraction.
--- NOTE | 2023-07-21 16:39 | PT.OTN ---
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, right leg, subsequent encounter (07/21/23) Other specified postprocedural states (07/21/23) Physical Therapy Treatment Note PT-OP-A Visit Information Start: 05/05/23 15:26 Freq: Status: Active Protocol: Document 07/21/23 12:59 AB (Rec: 07/21/23 13:49 AB [id number]) Out-Patient Physical Therapy Visit Information Visit Information Visit Type Treatment Note Visit Note Access Code [email or web address] Progress note due 24th visit Visit Start Time 13:03 Visit Stop Time 13:44 Visit Number 22 Number of STRATEGIC SOURCING MANAGER Visits 2 Evaluation Information Evaluation Date 05/05/23 PT-OP-B Current Condition Start: 05/05/23 15:26 Freq: Status: Active Protocol: Document 05/05/23 13:50 DCW (Rec: 05/05/23 15:48 DCW [id number]) Current Condition History of Current Condition Onset Date 12/31/22 Current Complaints R LE weakness, falls, neuromuscular dysfunction History of Current Condition Pt is a 73 year old female presenting with a complex recent medical history. Pt was brought to ED on 12/31/22 by EMS for nausea, vomiting, and generalized weakness. Was found to have cerebellar bleed and was transferred to [facility]. 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 Pt was at [facility] for 5 1/2 weeks, and then transferred to a rehab facility in [place] for another two months. Pt reports that at [facility], she was up walking around fairly well, but then developed severe nerve pain in her right leg. Found to have a large hematoma in her right low back/hip which ended up compressing right LE nerves. This resulted in loss of motor function and sensory imput from right leg. Pt admits she was miserable waiting for the pain to stop. Due to motor dysfunction in her right leg, was having increased difficulty walking, and spent her time in rehab in a wheelchair. Leg weakness resulted in two fals, both of which yusef her right knee. Pt has recently been working with home health, and is now doing well enough to progress to out-patient PT. Has been walking at home with a FWW, just obtained a 4WW, but not comfortable with it yet. Reports she can get herself to the kitchen, and furniture surf using the countertop and cabinets, and is able to dress and perform pericare independently. Still requires assistance with showering. Has friend helping as caregiver. Treatment Goals Patient/Caregiver Goals Pt's stated goals are to learn how to properly use 4WW, get right LE moving better, and walk on her own. PT-OP-C Subjective Start: 05/05/23 15:26 Freq: Status: Active Protocol: Document 07/21/23 12:59 AB (Rec: 07/21/23 13:49 AB [id number]) OP-PT Subjective Patient Comments Patient Comments Patient reports she was working on plants in planters on [facility] this weekend with no pain and no unsteadiness. Patient reports she had the walker with her. Pt reports they never got to fall recovery at the rehab hospital after telling her she would be taught, and spouse is requesting this be done here. PT-OP-E Functional Tests Start: 05/05/23 15:26 Freq: Status: Active Protocol: Document 06/03/23 10:30 DCW (Rec: 06/03/23 10:42 DCW [id number]) Functional Tests 2 Minute Walk Test Distance 232' Device Used 4WW Comments 1.93 ft/sec 30 Second Sit to Stand Test Score x10 repetitions Comments UE use PT-OP-G Mobility & Gait Start: 05/05/23 15:26 Freq: Status: Active Protocol: Document 05/05/23 13:50 DCW (Rec: 05/05/23 15:48 DCW [id number]) OP Mobility Evaluation Transfers Sit to Stand SBA /c FWW Bed to Chair Transfers SBA /c FWW Wheelchair Management Type of Wheelchair Manual Assessment Details Propells with B UEs OP Gait Assessment Gait Gait Assistance Required: Standby Assistance Distance (Feet) 174 Assistive Devices Assistive Device Gait Belt,Front Wheeled Walker Comments Gait Comments Pt uses momentum to advance right leg during swing phase due to absent quad control. Good foot clearance. PT-OP-H Neuro Start: 05/05/23 15:26 Freq: Status: Active Protocol: Document 05/05/23 13:50 DCW (Rec: 05/05/23 15:48 DCW [id number]) Sensation Evaluation Gross Sensation Gross Sensation Right LE Impaired Sensation Description Numbness,Tingling PT-OP-M Strength Start: 05/05/23 15:26 Freq: Status: Active Protocol: Document 05/05/23 13:50 DCW (Rec: 05/05/23 16:00 DCW [id number]) Hip Strength Hip Manual Muscle Testing Right Flexion (L2) 2+ Poor+ Extension (S1) 4- Good- Abduction 2 Poor Adduction 2 Poor Left Flexion (L2) 4+ Good+ Extension (S1) 4+ Good+ Abduction 4+ Good+ Adduction 4+ Good+ Knee Strength Knee Manual Muscle Testing Right Flexion (S2) 4 Good Extension (L3) 0 Zero Left Flexion (S2) 5 Normal Extension (L3) 5 Normal Ankle/Foot Strength Ankle and Foot Manual Muscle Testing Right Dorsiflexion (L4) 4 Good Plantarflexion (S1) 4 Good Left Dorsiflexion (L4) 4+ Good+ Plantarflexion (S1) 4+ Good+ PT-OP-O Vestibular Start: 06/24/23 12:49 Freq: Status: Active Protocol: Document 06/24/23 12:00 DCW (Rec: 06/24/23 12:49 DCW [id number]) Vestibular Assessment Auditory Tests Zurita Test Within normal limits Rinne Test Negative Air Conduction Results Equal Visual Testing Smooth Pursuits Horizontal WNL Smooth Pursuits Vertical WNL Saccades Horizontal WNL Heave Test Positive Bilateral Thrust Head Positive Bilateral Spontaneous Nystagmus Negative Positional Testing Ortega-Hallpike Negative Left,Negative Right Rolling Test Negative Left,Negative Right PT-OP-Q Treatments Start: 05/05/23 15:26 Freq: Status: Active Protocol: Document 07/21/23 12:59 AB (Rec: 07/21/23 13:49 AB [id number]) Therapeutic Exercises Sitting Exercises seated hip adduction Resistance ball Reps/Minutes X10 X 2 Comments monitored for pain seated hip abduction Equipment Used level 3 zuni green band Reps/Minutes 2X10 w/o hold then one one minute hold each color Comments Verbal cues Standing Exercises side stepping with band Standing Exercise Name using parallel bars Equipment Used leve 3 green band Reps/Minutes 10 feet X 3 left and right stagger stance squats Standing Exercise Name CGA performed with UE support Reps/Minutes 2X10 right LE retro stagger stance sit to stand Standing Exercise Name right LE back Reps/Minutes X1 Comments Increased difficulty this session, CGA, increased UE effort on chair step up Standing Exercise Name Lateral this session, bilateral UE use and left UE use Side right Equipment Used 4 inch step Reps/Minutes 2X10 Comments right knee guarded Other Exercises Step Lunge Other Exercise Name Step lunge Side bilateral Reps/Minutes fwd, back, lateral X 5 each LE Comments UE assist on rails right knee guarded Therapeutic Activity Therapeutic Activity Floor recovery Comments minimal assist PT-OP-R Modalities Start: 05/10/23 13:44 Freq: Status: Active Protocol: Document 07/09/23 10:15 AB (Rec: 07/09/23 11:36 AB [id number]) Electric Stimulation Electric Stimulation Belarusian Stimulation Body Location right quad Intensity 25 Ramp 0.5 Comments 10 on 30 off, performed quad sets, sidelying knee extension from ~90 deg flexion, LAQ AA as unable on initial trials PT-OP-T Assessment and Plan Start: 05/05/23 15:26 Freq: Status: Active Protocol: Document 07/21/23 12:59 AB (Rec: 07/21/23 13:49 AB [id number]) Physical Therapy Assessment Goals Three Impairment Pt currently demonstrating 0/5 MMT right quad Converting Technician Goal (LTG) Pt to exhibit 2-/5 MMT or greater of right quad in order to improve ability to limit knee buckling. LTG Duration 08/03/23 Two Impairment Pt ambulates 174' during Two Minute Walk Test using FWW Converting Technician Goal (LTG) Pt to exhibit ability to complete full 6MWT with no rest breaks using LRAD, ambulating >600' in order to demonstrate improve gait speed and activity tolerance LTG Duration 08/03/23 One Impairment Pt does not have an appropriate home exercise program Short Term Goal (STG) Pt to be independent and compliant with an appropriate HEP STG Duration 07/02/23 - improving Assessment Summary Assessment Lanette was able to perform floor recovery with minimal assist, and progressed to 4 inch lateral step with UE support, but due to fatigue unable to perform stagger stance sit to stand. Physical Therapy Plan Frequency and Duration Frequency of Treatment 2x/Week Plan of Care Start Date 05/05/23 Plan of Care End Date 08/03/23 Next Visit Focus/Plan Next Note Type Treatment Note Next Visit Plan Continue functional RLE strengthening. POC: Transfers, 4WW practice, gait/balance training, ( parallel bars if 4WW not available ) e-stim for quad contraction. Possibly start with floor recovery due to fatigue factor
--- NOTE | 2023-07-23 12:05 | PT.OTN ---
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, right leg, subsequent encounter (07/23/23) Other specified postprocedural states (07/23/23) Physical Therapy Treatment Note PT-OP-A Visit Information Start: 05/05/23 15:26 Freq: Status: Active Protocol: Document 07/23/23 11:20 DCW (Rec: 07/23/23 12:05 DCW [id number]) Out-Patient Physical Therapy Visit Information Visit Information Visit Type Treatment Note Visit Start Time 11:20 Visit Stop Time 12:00 Visit Number 23 Number of WARNING ANALYST Visits 0 Evaluation Information Evaluation Date 05/05/23 PT-OP-B Current Condition Start: 05/05/23 15:26 Freq: Status: Active Protocol: Document 05/05/23 13:50 DCW (Rec: 05/05/23 15:48 DCW [id number]) Current Condition History of Current Condition Onset Date 12/31/22 Current Complaints R LE weakness, falls, neuromuscular dysfunction History of Current Condition Pt is a 73 year old female presenting with a complex recent medical history. Pt was brought to ED on 12/31/22 by EMS for nausea, vomiting, and generalized weakness. Was found to have cerebellar bleed and was transferred to [facility]. 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 Pt was at [facility] for 5 1/2 weeks, and then transferred to a rehab facility in [place] for another two months. Pt reports that at [facility], she was up walking around fairly well, but then developed severe nerve pain in her right leg. Found to have a large hematoma in her right low back/hip which ended up compressing right LE nerves. This resulted in loss of motor function and sensory imput from right leg. Pt admits she was miserable waiting for the pain to stop. Due to motor dysfunction in her right leg, was having increased difficulty walking, and spent her time in rehab in a wheelchair. Leg weakness resulted in two fals, both of which yusef her right knee. Pt has recently been working with home health, and is now doing well enough to progress to out-patient PT. Has been walking at home with a FWW, just obtained a 4WW, but not comfortable with it yet. Reports she can get herself to the kitchen, and furniture surf using the countertop and cabinets, and is able to dress and perform pericare independently. Still requires assistance with showering. Has friend helping as caregiver. Treatment Goals Patient/Caregiver Goals Pt's stated goals are to learn how to properly use 4WW, get right LE moving better, and walk on her own. PT-OP-C Subjective Start: 05/05/23 15:26 Freq: Status: Active Protocol: Document 07/23/23 11:20 DCW (Rec: 07/23/23 12:05 DCW [id number]) OP-PT Subjective Patient Comments Patient Comments Pt reports he son will be coming out for Mother's Day, and she is hoping she can go with him out to a restaurant without using her walker. PT-OP-E Functional Tests Start: 05/05/23 15:26 Freq: Status: Active Protocol: Document 06/03/23 10:30 DCW (Rec: 06/03/23 10:42 DCW [id number]) Functional Tests 2 Minute Walk Test Distance 232' Device Used 4WW Comments 1.93 ft/sec 30 Second Sit to Stand Test Score x10 repetitions Comments UE use PT-OP-G Mobility & Gait Start: 05/05/23 15:26 Freq: Status: Active Protocol: Document 05/05/23 13:50 DCW (Rec: 05/05/23 15:48 DCW [id number]) OP Mobility Evaluation Transfers Sit to Stand SBA /c FWW Bed to Chair Transfers SBA /c FWW Wheelchair Management Type of Wheelchair Manual Assessment Details Propells with B UEs OP Gait Assessment Gait Gait Assistance Required: Standby Assistance Distance (Feet) 174 Assistive Devices Assistive Device Gait Belt,Front Wheeled Walker Comments Gait Comments Pt uses momentum to advance right leg during swing phase due to absent quad control. Good foot clearance. PT-OP-H Neuro Start: 05/05/23 15:26 Freq: Status: Active Protocol: Document 05/05/23 13:50 DCW (Rec: 05/05/23 15:48 DCW [id number]) Sensation Evaluation Gross Sensation Gross Sensation Right LE Impaired Sensation Description Numbness,Tingling PT-OP-M Strength Start: 05/05/23 15:26 Freq: Status: Active Protocol: Document 05/05/23 13:50 DCW (Rec: 05/05/23 16:00 DCW [id number]) Hip Strength Hip Manual Muscle Testing Right Flexion (L2) 2+ Poor+ Extension (S1) 4- Good- Abduction 2 Poor Adduction 2 Poor Left Flexion (L2) 4+ Good+ Extension (S1) 4+ Good+ Abduction 4+ Good+ Adduction 4+ Good+ Knee Strength Knee Manual Muscle Testing Right Flexion (S2) 4 Good Extension (L3) 0 Zero Left Flexion (S2) 5 Normal Extension (L3) 5 Normal Ankle/Foot Strength Ankle and Foot Manual Muscle Testing Right Dorsiflexion (L4) 4 Good Plantarflexion (S1) 4 Good Left Dorsiflexion (L4) 4+ Good+ Plantarflexion (S1) 4+ Good+ PT-OP-O Vestibular Start: 06/24/23 12:49 Freq: Status: Active Protocol: Document 06/24/23 12:00 DCW (Rec: 06/24/23 12:49 DCW [id number]) Vestibular Assessment Auditory Tests Zurita Test Within normal limits Rinne Test Negative Air Conduction Results Equal Visual Testing Smooth Pursuits Horizontal WNL Smooth Pursuits Vertical WNL Saccades Horizontal WNL Heave Test Positive Bilateral Thrust Head Positive Bilateral Spontaneous Nystagmus Negative Positional Testing Ortega-Hallpike Negative Left,Negative Right Rolling Test Negative Left,Negative Right PT-OP-Q Treatments Start: 05/05/23 15:26 Freq: Status: Active Protocol: Document 07/23/23 11:20 DCW (Rec: 07/23/23 12:05 DCW [id number]) Cardio Equipment Recumbent Elliptical (Biodex) Duration (Minutes) 6 Resistance 6 Seat Position 7 Other LEs only Therapeutic Exercises Other Exercises Step Lunge Other Exercise Name Step lunge Side bilateral Equipment Used Stacked AirExx2 Reps/Minutes Fwd 2x10 Comments UE assist on rails right knee guarded Step-ups Other Exercise Name Step-ups Side right Resistance AROM Equipment Used 2, 4 steps Reps/Minutes x15 Comments tried 6 step, exclusively used UEs to lift up Gait Training Gait Activity Stairs Description Ascend/Descend stairs Device Used B Rail Level of Assistance CGA Comments Step-to Cane Comments SPC gait progressing to GRADUATE STUDENT gait without AD PT-OP-R Modalities Start: 05/10/23 13:44 Freq: Status: Active Protocol: Document 07/09/23 10:15 AB (Rec: 07/09/23 11:36 AB [id number]) Electric Stimulation Electric Stimulation [place] Stimulation Body Location right quad Intensity 25 Ramp 0.5 Comments 10 on 30 off, performed quad sets, sidelying knee extension from ~90 deg flexion, LAQ AA as unable on initial trials PT-OP-T Assessment and Plan Start: 05/05/23 15:26 Freq: Status: Active Protocol: Document 07/23/23 11:20 DCW (Rec: 07/23/23 12:05 DCW [id number]) Physical Therapy Assessment Assessment Summary Assessment Continuing to work on SPC ambulation, did trial of GRADUATE STUDENT, as pt wants to be able to walk into restaurant with her son on Mother's Day without an assistive device. Pt did well with this over short distances . Did well practicing stairs. Continue to work on floor transfers/fall recovery next visit Physical Therapy Plan Frequency and Duration Frequency of Treatment 2x/Week Plan of Care Start Date 05/05/23 Plan of Care End Date 08/03/23 Next Visit Focus/Plan Next Note Type Treatment Note Next Visit Plan Continue functional RLE strengthening. POC: Transfers, 4WW practice, gait/balance training, ( parallel bars if 4WW not available ) e-stim for quad contraction. Possibly start with floor recovery due to fatigue factor
--- NOTE | 2023-07-27 12:18 | PT.OTN ---
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, right leg, subsequent encounter (07/27/23) Other specified postprocedural states (07/27/23) Physical Therapy Treatment Note PT-OP-A Visit Information Start: 05/05/23 15:26 Freq: Status: Active Protocol: Document 07/27/23 11:16 AB (Rec: 07/27/23 12:18 AB [id number]) Out-Patient Physical Therapy Visit Information Visit Information Visit Type Treatment Note Visit Note Access Code [email or web address] Progress note due th visit Visit Start Time 11:18 Visit Stop Time 12:04 Visit Number 24 Number of FABRIC WORKER FITTER Visits 1 Evaluation Information Evaluation Date 05/05/23 PT-OP-B Current Condition Start: 05/05/23 15:26 Freq: Status: Active Protocol: Document 05/05/23 13:50 DCW (Rec: 05/05/23 15:48 DCW [id number]) Current Condition History of Current Condition Onset Date 12/31/22 Current Complaints R LE weakness, falls, neuromuscular dysfunction History of Current Condition Pt is a 73 year old female presenting with a complex recent medical history. Pt was brought to ED on 12/31/22 by EMS for nausea, vomiting, and generalized weakness. Was found to have cerebellar bleed and was transferred to [facility]. 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 Pt was at [facility] for 5 1/2 weeks, and then transferred to a rehab facility in [place] for another two months. Pt reports that at [facility], she was up walking around fairly well, but then developed severe nerve pain in her right leg. Found to have a large hematoma in her right low back/hip which ended up compressing right LE nerves. This resulted in loss of motor function and sensory imput from right leg. Pt admits she was miserable waiting for the pain to stop. Due to motor dysfunction in her right leg, was having increased difficulty walking, and spent her time in rehab in a wheelchair. Leg weakness resulted in two fals, both of which yusef her right knee. Pt has recently been working with home health, and is now doing well enough to progress to out-patient PT. Has been walking at home with a FWW, just obtained a 4WW, but not comfortable with it yet. Reports she can get herself to the kitchen, and furniture surf using the countertop and cabinets, and is able to dress and perform pericare independently. Still requires assistance with showering. Has friend helping as caregiver. Treatment Goals Patient/Caregiver Goals Pt's stated goals are to learn how to properly use 4WW, get right LE moving better, and walk on her own. PT-OP-C Subjective Start: 05/05/23 15:26 Freq: Status: Active Protocol: Document 07/27/23 11:16 AB (Rec: 07/27/23 12:18 AB [id number]) OP-PT Subjective Patient Comments Patient Comments Patient reports no buckling right knee, reports using the walker all the time except in the shower. Lanette reports having no knee pain, is just swollen. Patient reports the knee does ache when standing at her work bench for a couple of hours. PT-OP-E Functional Tests Start: 05/05/23 15:26 Freq: Status: Active Protocol: Document 06/03/23 10:30 DCW (Rec: 06/03/23 10:42 DCW [id number]) Functional Tests 2 Minute Walk Test Distance 232' Device Used 4WW Comments 1.93 ft/sec 30 Second Sit to Stand Test Score x10 repetitions Comments UE use PT-OP-G Mobility & Gait Start: 05/05/23 15:26 Freq: Status: Active Protocol: Document 05/05/23 13:50 DCW (Rec: 05/05/23 15:48 DCW [id number]) OP Mobility Evaluation Transfers Sit to Stand SBA /c FWW Bed to Chair Transfers SBA /c FWW Wheelchair Management Type of Wheelchair Manual Assessment Details Propells with B UEs OP Gait Assessment Gait Gait Assistance Required: Standby Assistance Distance (Feet) 174 Assistive Devices Assistive Device Gait Belt,Front Wheeled Walker Comments Gait Comments Pt uses momentum to advance right leg during swing phase due to absent quad control. Good foot clearance. PT-OP-H Neuro Start: 05/05/23 15:26 Freq: Status: Active Protocol: Document 05/05/23 13:50 DCW (Rec: 05/05/23 15:48 DCW [id number]) Sensation Evaluation Gross Sensation Gross Sensation Right LE Impaired Sensation Description Numbness,Tingling PT-OP-M Strength Start: 05/05/23 15:26 Freq: Status: Active Protocol: Document 05/05/23 13:50 DCW (Rec: 05/05/23 16:00 DCW [id number]) Hip Strength Hip Manual Muscle Testing Right Flexion (L2) 2+ Poor+ Extension (S1) 4- Good- Abduction 2 Poor Adduction 2 Poor Left Flexion (L2) 4+ Good+ Extension (S1) 4+ Good+ Abduction 4+ Good+ Adduction 4+ Good+ Knee Strength Knee Manual Muscle Testing Right Flexion (S2) 4 Good Extension (L3) 0 Zero Left Flexion (S2) 5 Normal Extension (L3) 5 Normal Ankle/Foot Strength Ankle and Foot Manual Muscle Testing Right Dorsiflexion (L4) 4 Good Plantarflexion (S1) 4 Good Left Dorsiflexion (L4) 4+ Good+ Plantarflexion (S1) 4+ Good+ PT-OP-O Vestibular Start: 06/24/23 12:49 Freq: Status: Active Protocol: Document 06/24/23 12:00 DCW (Rec: 06/24/23 12:49 DCW [id number]) Vestibular Assessment Auditory Tests Zurita Test Within normal limits Rinne Test Negative Air Conduction Results Equal Visual Testing Smooth Pursuits Horizontal WNL Smooth Pursuits Vertical WNL Saccades Horizontal WNL Heave Test Positive Bilateral Thrust Head Positive Bilateral Spontaneous Nystagmus Negative Positional Testing Ortega-Hallpike Negative Left,Negative Right Rolling Test Negative Left,Negative Right PT-OP-Q Treatments Start: 05/05/23 15:26 Freq: Status: Active Protocol: Document 07/27/23 11:16 AB (Rec: 07/27/23 12:18 AB [id number]) Therapeutic Exercises Supine Exercises knee flexion Side bilateral Reps/Minutes 3 min Comments feet on ball post manual, assist to keeep right foot on ball X 4 knee flex ext with LE on ball Side bilateral Resistance therapist giving resistance at ball for extension Reps/Minutes 15 Sitting Exercises seated marching Reps/Minutes X10 Comments verbal cues seated hip abduction Equipment Used level 3 picayune green band Reps/Minutes one minute X1 Comments Verbal cues Therapeutic Activity Therapeutic Activity Floor recovery Reps/Minutes X2 Comments CGA Gait Training Gait Activity Cane Comments SPC gait training on level surfaces and on and off thick mat X2, CGA throughout, Verbal cues for up with good down with bad LE stepping onto and off mat first trial, patient verbalizes correct pattern prior to initiating on second trial Manual Therapy Treatment Soft Tissue Mobilization STM quad and hamstring right Le Body Location quad and area of increased tissue density decreased tissue mobility peripat Mobilization Type Cross-Friction,Rolling Intensity/Depth Moderate Body Position Hooklying Comments Monitored for pain PT-OP-R Modalities Start: 05/10/23 13:44 Freq: Status: Active Protocol: Document 07/09/23 10:15 AB (Rec: 07/09/23 11:36 AB [id number]) Electric Stimulation Electric Stimulation [place] Stimulation Body Location right quad Intensity 25 Ramp 0.5 Comments 10 on 30 off, performed quad sets, sidelying knee extension from ~90 deg flexion, LAQ AA as unable on initial trials PT-OP-T Assessment and Plan Start: 05/05/23 15:26 Freq: Status: Active Protocol: Document 07/27/23 11:16 AB (Rec: 07/27/23 12:18 AB [id number]) Physical Therapy Assessment Goals Three Impairment Pt currently demonstrating 0/5 MMT right quad Correction Goal (LTG) Pt to exhibit 2-/5 MMT or greater of right quad in order to improve ability to limit knee buckling. LTG Duration 08/03/23 Two Impairment Pt ambulates 174' during Two Minute Walk Test using FWW Correction Goal (LTG) Pt to exhibit ability to complete full 6MWT with no rest breaks using LRAD, ambulating >600' in order to demonstrate improve gait speed and activity tolerance LTG Duration 08/03/23 One Impairment Pt does not have an appropriate home exercise program Short Term Goal (STG) Pt to be independent and compliant with an appropriate HEP STG Duration 07/02/23 - improving Assessment Summary Assessment Lanette reports the right quad feels tired end of session. Lanette was able to perform fall recovery X 2 with CGA this session compared to minimal assist X 1 previous session with this therapist. Physical Therapy Plan Frequency and Duration Frequency of Treatment 2x/Week Plan of Care Start Date 05/05/23 Plan of Care End Date 08/03/23 Next Visit Focus/Plan Next Note Type Progress Note Next Visit Plan Continue functional RLE strengthening. SPC training POC: e-stim for quad contraction. Seated hip flexion vs seated SLR to HEP, LE
--- NOTE | 2023-07-30 11:59 | PT.OTN ---
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, right leg, subsequent encounter (07/30/23) Other specified postprocedural states (07/30/23) Physical Therapy Treatment Note PT-OP-A Visit Information Start: 05/05/23 15:26 Freq: Status: Active Protocol: Document 07/30/23 11:15 DCW (Rec: 07/30/23 11:59 DCW [id number]) Out-Patient Physical Therapy Visit Information Visit Information Visit Type Progress Note Visit Start Time 11:15 Visit Stop Time 12:00 Visit Number 25 Number of CONTENT STRATEGY LEAD Visits 0 Evaluation Information Evaluation Date 05/05/23 PT-OP-B Current Condition Start: 05/05/23 15:26 Freq: Status: Active Protocol: Document 05/05/23 13:50 DCW (Rec: 05/05/23 15:48 DCW [id number]) Current Condition History of Current Condition Onset Date 12/31/22 Current Complaints R LE weakness, falls, neuromuscular dysfunction History of Current Condition Pt is a 73 year old female presenting with a complex recent medical history. Pt was brought to ED on 12/31/22 by EMS for nausea, vomiting, and generalized weakness. Was found to have cerebellar bleed and was transferred to [facility]. 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 Pt was at [facility] for 5 1/2 weeks, and then transferred to a rehab facility in [place] for another two months. Pt reports that at [facility], she was up walking around fairly well, but then developed severe nerve pain in her right leg. Found to have a large hematoma in her right low back/hip which ended up compressing right LE nerves. This resulted in loss of motor function and sensory imput from right leg. Pt admits she was miserable waiting for the pain to stop. Due to motor dysfunction in her right leg, was having increased difficulty walking, and spent her time in rehab in a wheelchair. Leg weakness resulted in two fals, both of which yusef her right knee. Pt has recently been working with home health, and is now doing well enough to progress to out-patient PT. Has been walking at home with a FWW, just obtained a 4WW, but not comfortable with it yet. Reports she can get herself to the kitchen, and furniture surf using the countertop and cabinets, and is able to dress and perform pericare independently. Still requires assistance with showering. Has friend helping as caregiver. Treatment Goals Patient/Caregiver Goals Pt's stated goals are to learn how to properly use 4WW, get right LE moving better, and walk on her own. PT-OP-C Subjective Start: 05/05/23 15:26 Freq: Status: Active Protocol: Document 07/30/23 11:15 DCW (Rec: 07/30/23 11:59 DCW [id number]) OP-PT Subjective Patient Comments Patient Comments Pt feeling good with current level of function, hoping to transition to more use of SPC at home PT-OP-E Functional Tests Start: 05/05/23 15:26 Freq: Status: Active Protocol: Document 07/30/23 11:15 DCW (Rec: 07/30/23 11:42 DCW [id number]) Functional Tests 6 Minute Walk Test Distance 470' Device Used SPC Comments 1.30 ft/sec 30 Second Sit to Stand Test Score x10 repetitions Comments minimal UE use PT-OP-G Mobility & Gait Start: 05/05/23 15:26 Freq: Status: Active Protocol: Document 07/30/23 11:15 DCW (Rec: 07/30/23 11:42 DCW [id number]) OP Gait Assessment Gait Gait Assistance Required: Standby Assistance Distance (Feet) 470 Assistive Devices Assistive Device Gait Belt,Straight Cane Comments Gait Comments Pt uses momentum to advance right leg during swing phase due to absent quad control. Good foot clearance. PT-OP-H Neuro Start: 05/05/23 15:26 Freq: Status: Active Protocol: Document 07/30/23 11:15 DCW (Rec: 07/30/23 11:42 DCW [id number]) Sensation Evaluation Gross Sensation Gross Sensation Right LE Impaired Sensation Description Numbness,Tingling PT-OP-M Strength Start: 05/05/23 15:26 Freq: Status: Active Protocol: Document 07/30/23 11:15 DCW (Rec: 07/30/23 11:42 DCW [id number]) Hip Strength Hip Manual Muscle Testing Right Flexion (L2) 3 Fair Extension (S1) 4+ Good+ Abduction 3 Fair Adduction 3 Fair Left Flexion (L2) 4+ Good+ Extension (S1) 4+ Good+ Abduction 4+ Good+ Adduction 4+ Good+ Knee Strength Knee Manual Muscle Testing Right Flexion (S2) 5 Normal Extension (L3) 1 Trace Left Flexion (S2) 5 Normal Extension (L3) 5 Normal Ankle/Foot Strength Ankle and Foot Manual Muscle Testing Right Dorsiflexion (L4) 4+ Good+ Plantarflexion (S1) 4+ Good+ Left Dorsiflexion (L4) 4+ Good+ Plantarflexion (S1) 4+ Good+ PT-OP-O Vestibular Start: 06/24/23 12:49 Freq: Status: Active Protocol: Document 06/24/23 12:00 DCW (Rec: 06/24/23 12:49 DCW [id number]) Vestibular Assessment Auditory Tests Zurita Test Within normal limits Rinne Test Negative Air Conduction Results Equal Visual Testing Smooth Pursuits Horizontal WNL Smooth Pursuits Vertical WNL Saccades Horizontal WNL Heave Test Positive Bilateral Thrust Head Positive Bilateral Spontaneous Nystagmus Negative Positional Testing [place]-Hallpike Negative Left,Negative Right Rolling Test Negative Left,Negative Right PT-OP-Q Treatments Start: 05/05/23 15:26 Freq: Status: Active Protocol: Document 07/30/23 11:15 DCW (Rec: 07/30/23 11:59 DCW [id number]) Cardio Equipment Recumbent Elliptical (BiodMpayy) Duration (Minutes) 6 Resistance 6 Seat Position 7 Other LEs only Gym Equipment Shuttle Recovery Bilateral Squats Resistance 50# (Two new) Shuttle Recovery Platform Unstable Unilateral Squats Resistance 25# (One new) PT-OP-R Modalities Start: 05/10/23 13:44 Freq: Status: Active Protocol: Document 07/09/23 10:15 AB (Rec: 07/09/23 11:36 AB [id number]) Electric Stimulation Electric Stimulation [place] Stimulation Body Location right quad Intensity 25 Ramp 0.5 Comments 10 on 30 off, performed quad sets, sidelying knee extension from ~90 deg flexion, LAQ AA as unable on initial trials PT-OP-T Assessment and Plan Start: 05/05/23 15:26 Freq: Status: Active Protocol: Document 07/30/23 11:15 DCW (Rec: 07/30/23 11:59 DCW [id number]) Physical Therapy Assessment Goals Three Impairment Pt currently demonstrating 0/5 MMT right quad Fdc Goal (LTG) Pt to exhibit 2-/5 MMT or greater of right quad in order to improve ability to limit knee buckling. LTG Duration 10/28/23 - Improving Two Impairment Pt ambulates 174' during Two Minute Walk Test using FWW Aircraft Dispatcher Goal (LTG) Pt to exhibit ability to complete full 6MWT with no rest breaks using LRAD, ambulating >600' in order to demonstrate improve gait speed and activity tolerance LTG Duration 10/28/23 - Improving One Impairment Pt does not have an appropriate home exercise program Short Term Goal (STG) Pt to be independent and compliant with an appropriate HEP STG Duration 08/29/23 - improving Progress Towards Goals Progress Towards Goals Slow Progress due to Medical Issues Assessment Summary Assessment Pt exhibiting improvement in all areas. Increased activity tolerance and stability, able to complete full 6MWT with no rest breaks, while decreasing reliance on a more restrictive device, going from 4WW to a SPC. Showing increased activation in R quad. Pt should continue to benefit from skilled therapeutic intervention as she recovers from ongoing functional deficits related to right LE nerve damage. Physical Therapy Plan Frequency and Duration Frequency of Treatment 2x/Week Plan of Care Start Date 07/30/23 Plan of Care End Date 10/28/23 Next Visit Focus/Plan Next Note Type Treatment Note Next Visit Plan Continue functional RLE strengthening. SPC training POC: e-stim for quad contraction. Seated hip flexion vs seated SLR to HEP, LE
--- NOTE | 2023-07-30 12:00 | PT.OPPOC ---
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, [place], [address] Email: Plan Of Care PT-OP-T Assessment and Plan Start: 05/05/23 15:26 Freq: Status: Active Protocol: Document 07/30/23 11:15 DCW (Rec: 07/30/23 11:59 DCW [id number]) Physical Therapy Assessment Goals Three Impairment Pt currently demonstrating 0/5 MMT right quad Telegraph Editor Goal (LTG) Pt to exhibit 2-/5 MMT or greater of right quad in order to improve ability to limit knee buckling. LTG Duration 10/28/23 - Improving Two Impairment Pt ambulates 174' during Two Minute Walk Test using FWW Telegraph Editor Goal (LTG) Pt to exhibit ability to complete full 6MWT with no rest breaks using LRAD, ambulating >600' in order to demonstrate improve gait speed and activity tolerance LTG Duration 10/28/23 - Improving One Impairment Pt does not have an appropriate home exercise program Short Term Goal (STG) Pt to be independent and compliant with an appropriate HEP STG Duration 08/29/23 - improving Progress Towards Goals Progress Towards Goals Slow Progress due to Medical Issues Assessment Summary Assessment Pt exhibiting improvement in all areas. Increased activity tolerance and stability, able to complete full 6MWT with no rest breaks, while decreasing reliance on a more restrictive device, going from 4WW to a SPC. Showing increased activation in R quad. Pt should continue to benefit from skilled therapeutic intervention as she recovers from ongoing functional deficits related to right LE nerve damage. Physical Therapy Plan Frequency and Duration Frequency of Treatment 2x/Week Plan of Care Start Date 07/30/23 Plan of Care End Date 10/28/23 Next Visit Focus/Plan Next Note Type Treatment Note Next Visit Plan Continue functional RLE strengthening. SPC training POC: e-stim for quad contraction. Seated hip flexion vs seated SLR to DEEPAK CINTRON Plan of Care Dates Plan of Care Start Date 07/30/23 Plan of Care End Date 10/28/23 Electronically Signed by: Romain Zuñiga, PT 07/30/23 1200 If you are in agreement with this Plan of Care, please return a signed and dated copy. I have reviewed this Plan of Care and certify that the skilled therapy services above are required to meet the patient?s needs. Physician Signature Date Printed Name and Credentials Clinical Instructor Signature Printed Name and Credentials
--- NOTE | 2023-08-03 11:58 | PT.OTN ---
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, right leg, subsequent encounter (08/03/23) Other specified postprocedural states (08/03/23) Physical Therapy Treatment Note PT-OP-A Visit Information Start: 05/05/23 15:26 Freq: Status: Active Protocol: Document 08/03/23 11:15 DCW (Rec: 08/03/23 11:58 DCW [id number]) Out-Patient Physical Therapy Visit Information Visit Information Visit Type Treatment Note Visit Start Time 11:15 Visit Stop Time 12:00 Visit Number 26 Number of PLATFORM BUILDER Visits 0 Evaluation Information Evaluation Date 05/05/23 PT-OP-B Current Condition Start: 05/05/23 15:26 Freq: Status: Active Protocol: Document 05/05/23 13:50 DCW (Rec: 05/05/23 15:48 DCW [id number]) Current Condition History of Current Condition Onset Date 12/31/22 Current Complaints R LE weakness, falls, neuromuscular dysfunction History of Current Condition Pt is a 73 year old female presenting with a complex recent medical history. Pt was brought to ED on 12/31/22 by EMS for nausea, vomiting, and generalized weakness. Was found to have cerebellar bleed and was transferred to [facility]. 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 Pt was at [facility] for 5 1/2 weeks, and then transferred to a rehab facility in [place] for another two months. Pt reports that at [facility], she was up walking around fairly well, but then developed severe nerve pain in her right leg. Found to have a large hematoma in her right low back/hip which ended up compressing right LE nerves. This resulted in loss of motor function and sensory imput from right leg. Pt admits she was miserable waiting for the pain to stop. Due to motor dysfunction in her right leg, was having increased difficulty walking, and spent her time in rehab in a wheelchair. Leg weakness resulted in two fals, both of which yusef her right knee. Pt has recently been working with home health, and is now doing well enough to progress to out-patient PT. Has been walking at home with a FWW, just obtained a 4WW, but not comfortable with it yet. Reports she can get herself to the kitchen, and furniture surf using the countertop and cabinets, and is able to dress and perform pericare independently. Still requires assistance with showering. Has friend helping as caregiver. Treatment Goals Patient/Caregiver Goals Pt's stated goals are to learn how to properly use 4WW, get right LE moving better, and walk on her own. PT-OP-C Subjective Start: 05/05/23 15:26 Freq: Status: Active Protocol: Document 08/03/23 11:15 DCW (Rec: 08/03/23 11:58 DCW [id number]) OP-PT Subjective Patient Comments Patient Comments Pt feeling pretty good today. PT-OP-E Functional Tests Start: 05/05/23 15:26 Freq: Status: Active Protocol: Document 07/30/23 11:15 DCW (Rec: 07/30/23 11:42 DCW [id number]) Functional Tests 6 Minute Walk Test Distance 470' Device Used SPC Comments 1.30 ft/sec 30 Second Sit to Stand Test Score x10 repetitions Comments minimal UE use PT-OP-G Mobility & Gait Start: 05/05/23 15:26 Freq: Status: Active Protocol: Document 07/30/23 11:15 DCW (Rec: 07/30/23 11:42 DCW [id number]) OP Gait Assessment Gait Gait Assistance Required: Standby Assistance Distance (Feet) 470 Assistive Devices Assistive Device Gait Belt,Straight Cane Comments Gait Comments Pt uses momentum to advance right leg during swing phase due to absent quad control. Good foot clearance. PT-OP-H Neuro Start: 05/05/23 15:26 Freq: Status: Active Protocol: Document 07/30/23 11:15 DCW (Rec: 07/30/23 11:42 DCW [id number]) Sensation Evaluation Gross Sensation Gross Sensation Right LE Impaired Sensation Description Numbness,Tingling PT-OP-M Strength Start: 05/05/23 15:26 Freq: Status: Active Protocol: Document 07/30/23 11:15 DCW (Rec: 07/30/23 11:42 DCW [id number]) Hip Strength Hip Manual Muscle Testing Right Flexion (L2) 3 Fair Extension (S1) 4+ Good+ Abduction 3 Fair Adduction 3 Fair Left Flexion (L2) 4+ Good+ Extension (S1) 4+ Good+ Abduction 4+ Good+ Adduction 4+ Good+ Knee Strength Knee Manual Muscle Testing Right Flexion (S2) 5 Normal Extension (L3) 1 Trace Left Flexion (S2) 5 Normal Extension (L3) 5 Normal Ankle/Foot Strength Ankle and Foot Manual Muscle Testing Right Dorsiflexion (L4) 4+ Good+ Plantarflexion (S1) 4+ Good+ Left Dorsiflexion (L4) 4+ Good+ Plantarflexion (S1) 4+ Good+ PT-OP-O Vestibular Start: 06/24/23 12:49 Freq: Status: Active Protocol: Document 06/24/23 12:00 DCW (Rec: 06/24/23 12:49 DCW [id number]) Vestibular Assessment Auditory Tests [place] Test Within normal limits Rinne Test Negative Air Conduction Results Equal Visual Testing Smooth Pursuits Horizontal WNL Smooth Pursuits Vertical WNL Saccades Horizontal WNL Heave Test Positive Bilateral Thrust Head Positive Bilateral Spontaneous Nystagmus Negative Positional Testing [place]-Hallpike Negative Left,Negative Right Rolling Test Negative Left,Negative Right PT-OP-Q Treatments Start: 05/05/23 15:26 Freq: Status: Active Protocol: Document 08/03/23 11:15 DCW (Rec: 08/03/23 11:58 DCW [id number]) Cardio Equipment Recumbent Elliptical (Biodex) Duration (Minutes) 6 Resistance 6 Seat Position 7 Other LEs only Gym Equipment Shuttle Recovery Bilateral Squats Resistance 62# (Two new) Shuttle Recovery Platform Unstable Unilateral Squats Details Right Resistance 37# Shuttle Recovery Platform Stable Reps/Time VCs to limit assist with left Therapeutic Exercises Other Exercises Step Lunge Other Exercise Name Step lunge Side bilateral Equipment Used BOSU Reps/Minutes Fwd 2x10 Comments UE assist on rails right knee guarded Gait Training Gait Activity Cane Device Used SPC Level of Assistance CGA Comments Flat Surface Uneven surfaces (blue pad on objects) Hurdles (step-to, step-through ) Retro Ambulation PT-OP-R Modalities Start: 05/10/23 13:44 Freq: Status: Active Protocol: Document 07/09/23 10:15 AB (Rec: 07/09/23 11:36 AB [id number]) Electric Stimulation Electric Stimulation [place] Stimulation Body Location right quad Intensity 25 Ramp 0.5 Comments 10 on 30 off, performed quad sets, sidelying knee extension from ~90 deg flexion, LAQ AA as unable on initial trials PT-OP-T Assessment and Plan Start: 05/05/23 15:26 Freq: Status: Active Protocol: Document 08/03/23 11:15 DCW (Rec: 08/03/23 11:58 DCW [id number]) Physical Therapy Assessment Impairments Impairments Balance,Functional Activities, Functional Mobility,Pain,ROM, Sensation,Soft Tissue Mobility ,Strength,Tone,Transfers Goals Three Impairment Pt currently demonstrating 0/5 MMT right quad Hot Walker Goal (LTG) Pt to exhibit 2-/5 MMT or greater of right quad in order to improve ability to limit knee buckling. LTG Duration 10/28/23 - Improving Two Impairment Pt ambulates 174' during Two Minute Walk Test using FWW Group Home Goal (LTG) Pt to exhibit ability to complete full 6MWT with no rest breaks using LRAD, ambulating >600' in order to demonstrate improve gait speed and activity tolerance LTG Duration 10/28/23 - Improving One Impairment Pt does not have an appropriate home exercise program Short Term Goal (STG) Pt to be independent and compliant with an appropriate HEP STG Duration 08/29/23 - improving Assessment Summary Assessment Good response to new challenges, pt had minimal difficulty SPC on uneven surfaces or retro walking. Did struggle a bit with hurdles, but mostly self-corrected LOB. Physical Therapy Plan Frequency and Duration Frequency of Treatment 2x/Week Plan of Care Start Date 07/30/23 Plan of Care End Date 10/28/23 Therapeutic Interventions Therapeutic Interventions Balance Training,Coordination Training,Gait Training,Home Exercise Program,Joint Mobilizations,Manual Therapy, Neuromuscular Re-education, Patient/Caregiver Education, Self-Care/Home Management, Sensory Integration,Soft Tissue Mobilization, Therapeutic Activities, Therapeutic Exercises Next Visit Focus/Plan Next Note Type Treatment Note Next Visit Plan Continue functional RLE strengthening. SPC training POC: e-stim for quad contraction. Seated hip flexion vs seated SLR to HEP, LE
--- NOTE | 2023-08-09 12:01 | PT.OTN ---
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, right leg, subsequent encounter (08/09/23) Other specified postprocedural states (08/09/23) Physical Therapy Treatment Note PT-OP-A Visit Information Start: 05/05/23 15:26 Freq: Status: Active Protocol: Document 08/09/23 11:15 DCW (Rec: 08/09/23 12:00 DCW [id number]) Out-Patient Physical Therapy Visit Information Visit Information Visit Type Treatment Note Visit Start Time 11:15 Visit Stop Time 12:00 Visit Number 27 Number of SPRING PRODUCTION SUPERVISOR Visits 0 Evaluation Information Evaluation Date 05/05/23 PT-OP-B Current Condition Start: 05/05/23 15:26 Freq: Status: Active Protocol: Document 05/05/23 13:50 DCW (Rec: 05/05/23 15:48 DCW [id number]) Current Condition History of Current Condition Onset Date 12/31/22 Current Complaints R LE weakness, falls, neuromuscular dysfunction History of Current Condition Pt is a 73 year old female presenting with a complex recent medical history. Pt was brought to ED on 12/31/22 by EMS for nausea, vomiting, and generalized weakness. Was found to have cerebellar bleed and was transferred to [facility]. 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 Pt was at [facility] for 5 1/2 weeks, and then transferred to a rehab facility in [place] for another two months. Pt reports that at [facility], she was up walking around fairly well, but then developed severe nerve pain in her right leg. Found to have a large hematoma in her right low back/hip which ended up compressing right LE nerves. This resulted in loss of motor function and sensory imput from right leg. Pt admits she was miserable waiting for the pain to stop. Due to motor dysfunction in her right leg, was having increased difficulty walking, and spent her time in rehab in a wheelchair. Leg weakness resulted in two fals, both of which yusef her right knee. Pt has recently been working with home health, and is now doing well enough to progress to out-patient PT. Has been walking at home with a FWW, just obtained a 4WW, but not comfortable with it yet. Reports she can get herself to the kitchen, and furniture surf using the countertop and cabinets, and is able to dress and perform pericare independently. Still requires assistance with showering. Has friend helping as caregiver. Treatment Goals Patient/Caregiver Goals Pt's stated goals are to learn how to properly use 4WW, get right LE moving better, and walk on her own. PT-OP-C Subjective Start: 05/05/23 15:26 Freq: Status: Active Protocol: Document 08/09/23 11:15 DCW (Rec: 08/09/23 12:00 DCW [id number]) OP-PT Subjective Patient Comments Patient Comments I'm just itching to get out into the garden. Notes she has not been having any buckling. PT-OP-E Functional Tests Start: 05/05/23 15:26 Freq: Status: Active Protocol: Document 07/30/23 11:15 DCW (Rec: 07/30/23 11:42 DCW [id number]) Functional Tests 6 Minute Walk Test Distance 470' Device Used SPC Comments 1.30 ft/sec 30 Second Sit to Stand Test Score x10 repetitions Comments minimal UE use PT-OP-G Mobility & Gait Start: 05/05/23 15:26 Freq: Status: Active Protocol: Document 07/30/23 11:15 DCW (Rec: 07/30/23 11:42 DCW [id number]) OP Gait Assessment Gait Gait Assistance Required: Standby Assistance Distance (Feet) 470 Assistive Devices Assistive Device Gait Belt,Straight Cane Comments Gait Comments Pt uses momentum to advance right leg during swing phase due to absent quad control. Good foot clearance. PT-OP-H Neuro Start: 05/05/23 15:26 Freq: Status: Active Protocol: Document 07/30/23 11:15 DCW (Rec: 07/30/23 11:42 DCW [id number]) Sensation Evaluation Gross Sensation Gross Sensation Right LE Impaired Sensation Description Numbness,Tingling PT-OP-M Strength Start: 05/05/23 15:26 Freq: Status: Active Protocol: Document 07/30/23 11:15 DCW (Rec: 07/30/23 11:42 DCW [id number]) Hip Strength Hip Manual Muscle Testing Right Flexion (L2) 3 Fair Extension (S1) 4+ Good+ Abduction 3 Fair Adduction 3 Fair Left Flexion (L2) 4+ Good+ Extension (S1) 4+ Good+ Abduction 4+ Good+ Adduction 4+ Good+ Knee Strength Knee Manual Muscle Testing Right Flexion (S2) 5 Normal Extension (L3) 1 Trace Left Flexion (S2) 5 Normal Extension (L3) 5 Normal Ankle/Foot Strength Ankle and Foot Manual Muscle Testing Right Dorsiflexion (L4) 4+ Good+ Plantarflexion (S1) 4+ Good+ Left Dorsiflexion (L4) 4+ Good+ Plantarflexion (S1) 4+ Good+ PT-OP-O Vestibular Start: 06/24/23 12:49 Freq: Status: Active Protocol: Document 06/24/23 12:00 DCW (Rec: 06/24/23 12:49 DCW [id number]) Vestibular Assessment Auditory Tests [place] Test Within normal limits Rinne Test Negative Air Conduction Results Equal Visual Testing Smooth Pursuits Horizontal WNL Smooth Pursuits Vertical WNL Saccades Horizontal WNL Heave Test Positive Bilateral Thrust Head Positive Bilateral Spontaneous Nystagmus Negative Positional Testing Walker-Hallpike Negative Left,Negative Right Rolling Test Negative Left,Negative Right PT-OP-Q Treatments Start: 05/05/23 15:26 Freq: Status: Active Protocol: Document 08/09/23 11:15 DCW (Rec: 08/09/23 12:00 DCW [id number]) Cardio Equipment Recumbent Elliptical (BiodBrandProject) Duration (Minutes) 6 Resistance 8 Seat Position 7 Other LEs only Gym Equipment Shuttle Balance Red Details WBOS, Staggered Therapeutic Exercises Sitting Exercises LAQ Sitting Exercise Name focus on eccentric lowering AA Side right Reps/Minutes X10 Other Exercises Step Lunge Other Exercise Name Step lunge Side bilateral Equipment Used BOSU Reps/Minutes Fwd 2x10 Comments UE assist on rails right knee guarded Therapeutic Activity Therapeutic Activity Sit Stand Name Sit<->stand Comments L foot on 2 step to shift weight onto right leg Gait Training Gait Activity Cane Device Used SPC Level of Assistance CGA Comments Outdoor uneven path through landscaping PT-OP-R Modalities Start: 05/10/23 13:44 Freq: Status: Active Protocol: Document 07/09/23 10:15 AB (Rec: 07/09/23 11:36 AB [id number]) Electric Stimulation Electric Stimulation [place]cuadorean Stimulation Body Location right quad Intensity 25 Ramp 0.5 Comments 10 on 30 off, performed quad sets, sidelying knee extension from ~90 deg flexion, LAQ AA as unable on initial trials PT-OP-T Assessment and Plan Start: 05/05/23 15:26 Freq: Status: Active Protocol: Document 08/09/23 11:15 DCW (Rec: 08/09/23 12:00 DCW [id number]) Physical Therapy Assessment Impairments Impairments Balance,Functional Activities, Functional Mobility,Pain,ROM, Sensation,Soft Tissue Mobility ,Strength,Tone,Transfers Goals Three Impairment Pt currently demonstrating 0/5 MMT right quad Usp Goal (LTG) Pt to exhibit 2-/5 MMT or greater of right quad in order to improve ability to limit knee buckling. LTG Duration 10/28/23 - Improving Two Impairment Pt ambulates 174' during Two Minute Walk Test using FWW Drapery Sewer Hand Goal (LTG) Pt to exhibit ability to complete full 6MWT with no rest breaks using LRAD, ambulating >600' in order to demonstrate improve gait speed and activity tolerance LTG Duration 10/28/23 - Improving One Impairment Pt does not have an appropriate home exercise program Short Term Goal (STG) Pt to be independent and compliant with an appropriate HEP STG Duration 08/29/23 - improving Assessment Summary Assessment Addition of shuttle balance allowed pt to experience new challenge. Pt did very well with outdoor ambulation on uneven path. Physical Therapy Plan Frequency and Duration Frequency of Treatment 2x/Week Plan of Care Start Date 07/30/23 Plan of Care End Date 10/28/23 Therapeutic Interventions Therapeutic Interventions Balance Training,Coordination Training,Gait Training,Home Exercise Program,Joint Mobilizations,Manual Therapy, Neuromuscular Re-education, Patient/Caregiver Education, Self-Care/Home Management, Sensory Integration,Soft Tissue Mobilization, Therapeutic Activities, Therapeutic Exercises Next Visit Focus/Plan Next Note Type Treatment Note Next Visit Plan Continue functional RLE strengthening. SPC training POC: e-stim for quad contraction. Seated hip flexion vs seated SLR to HEP, LE
--- NOTE | 2023-08-11 12:02 | PT.OTN ---
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, right leg, subsequent encounter (08/11/23) Other specified postprocedural states (08/11/23) Physical Therapy Treatment Note PT-OP-A Visit Information Start: 05/05/23 15:26 Freq: Status: Active Protocol: Document 08/11/23 11:15 DCW (Rec: 08/11/23 12:02 DCW [id number]) Out-Patient Physical Therapy Visit Information Visit Information Visit Type Treatment Note Visit Start Time 11:15 Visit Stop Time 12:00 Visit Number 28 Number of VALVE STEAMER Visits 0 Evaluation Information Evaluation Date 05/05/23 PT-OP-B Current Condition Start: 05/05/23 15:26 Freq: Status: Active Protocol: Document 05/05/23 13:50 DCW (Rec: 05/05/23 15:48 DCW [id number]) Current Condition History of Current Condition Onset Date 12/31/22 Current Complaints R LE weakness, falls, neuromuscular dysfunction History of Current Condition Pt is a 73 year old female presenting with a complex recent medical history. Pt was brought to ED on 12/31/22 by EMS for nausea, vomiting, and generalized weakness. Was found to have cerebellar bleed and was transferred to [facility]. 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 Pt was at [facility] for 5 1/2 weeks, and then transferred to a rehab facility in [place] for another two months. Pt reports that at [facility], she was up walking around fairly well, but then developed severe nerve pain in her right leg. Found to have a large hematoma in her right low back/hip which ended up compressing right LE nerves. This resulted in loss of motor function and sensory imput from right leg. Pt admits she was miserable waiting for the pain to stop. Due to motor dysfunction in her right leg, was having increased difficulty walking, and spent her time in rehab in a wheelchair. Leg weakness resulted in two fals, both of which yusef her right knee. Pt has recently been working with home health, and is now doing well enough to progress to out-patient PT. Has been walking at home with a FWW, just obtained a 4WW, but not comfortable with it yet. Reports she can get herself to the kitchen, and furniture surf using the countertop and cabinets, and is able to dress and perform pericare independently. Still requires assistance with showering. Has friend helping as caregiver. Treatment Goals Patient/Caregiver Goals Pt's stated goals are to learn how to properly use 4WW, get right LE moving better, and walk on her own. PT-OP-C Subjective Start: 05/05/23 15:26 Freq: Status: Active Protocol: Document 08/11/23 11:15 DCW (Rec: 08/11/23 12:02 DCW [id number]) OP-PT Subjective Patient Comments Patient Comments The good news, or at least I think it's good news, is that I'm feeling more nerve pain in my leg along my knee, which I take as nerve function coming back. PT-OP-E Functional Tests Start: 05/05/23 15:26 Freq: Status: Active Protocol: Document 07/30/23 11:15 DCW (Rec: 07/30/23 11:42 DCW [id number]) Functional Tests 6 Minute Walk Test Distance 470' Device Used SPC Comments 1.30 ft/sec 30 Second Sit to Stand Test Score x10 repetitions Comments minimal UE use PT-OP-G Mobility & Gait Start: 05/05/23 15:26 Freq: Status: Active Protocol: Document 07/30/23 11:15 DCW (Rec: 07/30/23 11:42 DCW [id number]) OP Gait Assessment Gait Gait Assistance Required: Standby Assistance Distance (Feet) 470 Assistive Devices Assistive Device Gait Belt,Straight Cane Comments Gait Comments Pt uses momentum to advance right leg during swing phase due to absent quad control. Good foot clearance. PT-OP-H Neuro Start: 05/05/23 15:26 Freq: Status: Active Protocol: Document 07/30/23 11:15 DCW (Rec: 07/30/23 11:42 DCW [id number]) Sensation Evaluation Gross Sensation Gross Sensation Right LE Impaired Sensation Description Numbness,Tingling PT-OP-M Strength Start: 05/05/23 15:26 Freq: Status: Active Protocol: Document 07/30/23 11:15 DCW (Rec: 07/30/23 11:42 DCW [id number]) Hip Strength Hip Manual Muscle Testing Right Flexion (L2) 3 Fair Extension (S1) 4+ Good+ Abduction 3 Fair Adduction 3 Fair Left Flexion (L2) 4+ Good+ Extension (S1) 4+ Good+ Abduction 4+ Good+ Adduction 4+ Good+ Knee Strength Knee Manual Muscle Testing Right Flexion (S2) 5 Normal Extension (L3) 1 Trace Left Flexion (S2) 5 Normal Extension (L3) 5 Normal Ankle/Foot Strength Ankle and Foot Manual Muscle Testing Right Dorsiflexion (L4) 4+ Good+ Plantarflexion (S1) 4+ Good+ Left Dorsiflexion (L4) 4+ Good+ Plantarflexion (S1) 4+ Good+ PT-OP-O Vestibular Start: 06/24/23 12:49 Freq: Status: Active Protocol: Document 06/24/23 12:00 DCW (Rec: 06/24/23 12:49 DCW [id number]) Vestibular Assessment Auditory Tests Zurita Test Within normal limits Rinne Test Negative Air Conduction Results Equal Visual Testing Smooth Pursuits Horizontal WNL Smooth Pursuits Vertical WNL Saccades Horizontal WNL Heave Test Positive Bilateral Thrust Head Positive Bilateral Spontaneous Nystagmus Negative Positional Testing Whiteside-Hallpike Negative Left,Negative Right Rolling Test Negative Left,Negative Right PT-OP-Q Treatments Start: 05/05/23 15:26 Freq: Status: Active Protocol: Document 08/11/23 11:15 DCW (Rec: 08/11/23 12:02 DCW [id number]) Cardio Equipment Recumbent Elliptical (Biodex) Duration (Minutes) 6 Resistance 8 Seat Position 7 Other LEs only Gym Equipment Shuttle Recovery Bilateral Squats Resistance 75# (Three new) Shuttle Recovery Platform Unstable Unilateral Squats Details Right Resistance 37#->25# Shuttle Recovery Platform Stable Reps/Time VCs to limit assist with left Shuttle Balance Red Details WBOS, Staggered Therapeutic Activity Therapeutic Activity Sit Stand Name Sit<->stand Comments 12 seat with 2 AirEx pad to mimic low weeding seat, then 8 seat with 2 AirEx. Gait Training Gait Activity Cane Device Used SPC Level of Assistance CGA Surface 510' Comments Hallway walking PT-OP-R Modalities Start: 05/10/23 13:44 Freq: Status: Active Protocol: Document 07/09/23 10:15 AB (Rec: 07/09/23 11:36 AB [id number]) Electric Stimulation Electric Stimulation [place] Stimulation Body Location right quad Intensity 25 Ramp 0.5 Comments 10 on 30 off, performed quad sets, sidelying knee extension from ~90 deg flexion, LAQ AA as unable on initial trials PT-OP-T Assessment and Plan Start: 05/05/23 15:26 Freq: Status: Active Protocol: Document 08/11/23 11:15 DCW (Rec: 08/11/23 12:02 DCW [id number]) Physical Therapy Assessment Impairments Impairments Balance,Functional Activities, Functional Mobility,Pain,ROM, Sensation,Soft Tissue Mobility ,Strength,Tone,Transfers Goals Three Impairment Pt currently demonstrating 0/5 MMT right quad Capability Lead Goal (LTG) Pt to exhibit 2-/5 MMT or greater of right quad in order to improve ability to limit knee buckling. LTG Duration 10/28/23 - Improving Two Impairment Pt ambulates 174' during Two Minute Walk Test using FWW Capability Lead Goal (LTG) Pt to exhibit ability to complete full 6MWT with no rest breaks using LRAD, ambulating >600' in order to demonstrate improve gait speed and activity tolerance LTG Duration 10/28/23 - Improving One Impairment Pt does not have an appropriate home exercise program Short Term Goal (STG) Pt to be independent and compliant with an appropriate HEP STG Duration 08/29/23 - improving Assessment Summary Assessment Pt noted she was getting a low bench to weed her garden from , because she attempted to weed sitting on her 4WW and it was difficult. Spent time today practicing getting up/ down from from low seats. Doing well with only minimal UE use. Continues to demonstrate improvements with functional mobility of right leg. Physical Therapy Plan Frequency and Duration Frequency of Treatment 2x/Week Plan of Care Start Date 07/30/23 Plan of Care End Date 10/28/23 Therapeutic Interventions Therapeutic Interventions Balance Training,Coordination Training,Gait Training,Home Exercise Program,Joint Mobilizations,Manual Therapy, Neuromuscular Re-education, Patient/Caregiver Education, Self-Care/Home Management, Sensory Integration,Soft Tissue Mobilization, Therapeutic Activities, Therapeutic Exercises Next Visit Focus/Plan Next Note Type Treatment Note Next Visit Plan Continue functional RLE strengthening. SPC training POC: e-stim for quad contraction. Seated hip flexion vs seated SLR to HEP, LE
--- NOTE | 2023-08-16 12:55 | PT.OTN ---
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, right leg, subsequent encounter (08/16/23) Other specified postprocedural states (08/16/23) Physical Therapy Treatment Note PT-OP-A Visit Information Start: 05/05/23 15:26 Freq: Status: Active Protocol: Document 08/16/23 09:22 AB (Rec: 08/16/23 12:55 AB [id number]) Out-Patient Physical Therapy Visit Information Visit Information Visit Type Treatment Note Visit Note 08/12 for PN Visit Start Time 11:18 Visit Stop Time 12:04 Visit Number 29 Number of ELECTRONIC GLUING MACHINE OPERATOR Visits 1 Evaluation Information Evaluation Date 05/05/23 PT-OP-B Current Condition Start: 05/05/23 15:26 Freq: Status: Active Protocol: Document 05/05/23 13:50 DCW (Rec: 05/05/23 15:48 DCW [id number]) Current Condition History of Current Condition Onset Date 12/31/22 Current Complaints R LE weakness, falls, neuromuscular dysfunction History of Current Condition Pt is a 73 year old female presenting with a complex recent medical history. Pt was brought to ED on 12/31/22 by EMS for nausea, vomiting, and generalized weakness. Was found to have cerebellar bleed and was transferred to [facility]. 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 Pt was at [facility] for 5 1/2 weeks, and then transferred to a rehab facility in [place] for another two months. Pt reports that at [facility], she was up walking around fairly well, but then developed severe nerve pain in her right leg. Found to have a large hematoma in her right low back/hip which ended up compressing right LE nerves. This resulted in loss of motor function and sensory imput from right leg. Pt admits she was miserable waiting for the pain to stop. Due to motor dysfunction in her right leg, was having increased difficulty walking, and spent her time in rehab in a wheelchair. Leg weakness resulted in two fals, both of which yusef her right knee. Pt has recently been working with home health, and is now doing well enough to progress to out-patient PT. Has been walking at home with a FWW, just obtained a 4WW, but not comfortable with it yet. Reports she can get herself to the kitchen, and furniture surf using the countertop and cabinets, and is able to dress and perform pericare independently. Still requires assistance with showering. Has friend helping as caregiver. Treatment Goals Patient/Caregiver Goals Pt's stated goals are to learn how to properly use 4WW, get right LE moving better, and walk on her own. PT-OP-C Subjective Start: 05/05/23 15:26 Freq: Status: Active Protocol: Document 08/16/23 09:22 AB (Rec: 08/16/23 12:55 AB [id number]) OP-PT Subjective Patient Comments Patient Comments Patient reports she was able to walk into a restaurant with holding one arm of spouse for Month's day. Patient reports that she has been on her feet a lot in the house. Patient reports she continues to have difficulty getting up from the ground. Patient reports the right knee ezio maybe 3X a week, but is able to hold herself up with the walker PT-OP-E Functional Tests Start: 05/05/23 15:26 Freq: Status: Active Protocol: Document 07/30/23 11:15 DCW (Rec: 07/30/23 11:42 DCW [id number]) Functional Tests 6 Minute Walk Test Distance 470' Device Used SPC Comments 1.30 ft/sec 30 Second Sit to Stand Test Score x10 repetitions Comments minimal UE use PT-OP-G Mobility & Gait Start: 05/05/23 15:26 Freq: Status: Active Protocol: Document 07/30/23 11:15 DCW (Rec: 07/30/23 11:42 DCW [id number]) OP Gait Assessment Gait Gait Assistance Required: Standby Assistance Distance (Feet) 470 Assistive Devices Assistive Device Gait Belt,Straight Cane Comments Gait Comments Pt uses momentum to advance right leg during swing phase due to absent quad control. Good foot clearance. PT-OP-H Neuro Start: 05/05/23 15:26 Freq: Status: Active Protocol: Document 07/30/23 11:15 DCW (Rec: 07/30/23 11:42 DCW [id number]) Sensation Evaluation Gross Sensation Gross Sensation Right LE Impaired Sensation Description Numbness,Tingling PT-OP-M Strength Start: 05/05/23 15:26 Freq: Status: Active Protocol: Document 07/30/23 11:15 DCW (Rec: 07/30/23 11:42 DCW [id number]) Hip Strength Hip Manual Muscle Testing Right Flexion (L2) 3 Fair Extension (S1) 4+ Good+ Abduction 3 Fair Adduction 3 Fair Left Flexion (L2) 4+ Good+ Extension (S1) 4+ Good+ Abduction 4+ Good+ Adduction 4+ Good+ Knee Strength Knee Manual Muscle Testing Right Flexion (S2) 5 Normal Extension (L3) 1 Trace Left Flexion (S2) 5 Normal Extension (L3) 5 Normal Ankle/Foot Strength Ankle and Foot Manual Muscle Testing Right Dorsiflexion (L4) 4+ Good+ Plantarflexion (S1) 4+ Good+ Left Dorsiflexion (L4) 4+ Good+ Plantarflexion (S1) 4+ Good+ PT-OP-O Vestibular Start: 06/24/23 12:49 Freq: Status: Active Protocol: Document 06/24/23 12:00 DCW (Rec: 06/24/23 12:49 DCW [id number]) Vestibular Assessment Auditory Tests Zurita Test Within normal limits Rinne Test Negative Air Conduction Results Equal Visual Testing Smooth Pursuits Horizontal WNL Smooth Pursuits Vertical WNL Saccades Horizontal WNL Heave Test Positive Bilateral Thrust Head Positive Bilateral Spontaneous Nystagmus Negative Positional Testing Ortega-Hallpike Negative Left,Negative Right Rolling Test Negative Left,Negative Right PT-OP-Q Treatments Start: 05/05/23 15:26 Freq: Status: Active Protocol: Document 08/16/23 09:22 AB (Rec: 08/16/23 12:55 AB [id number]) Therapeutic Exercises Sitting Exercises seated SLR Sitting Exercise Name with tapping to facilitate quads Side right Reps/Minutes 10 seated hip adduction Sitting Exercise Name with ball Side bilateral Reps/Minutes 10 seconds X 5 seated hip abduction Equipment Used level 3 flandreau green band Reps/Minutes one minute X1 Comments Verbal cues Standing Exercises calf stretches on LETI Side bilateral Reps/Minutes 60 sec X 2 each LE Comments reports no change with sensation at calf during lateral step up post stretc lateral step up Standing Exercise Name UE use Side right Equipment Used 2 inch step and 4 inch step Reps/Minutes 2X15 on step each then X4 with walker use Comments right knee guarded, VC to bend knee slowly with step down Neuro Re-Education Treatment Balance Activities side stepping without UE use Details hands above bars CGA Reps/Duration X3 left and right Comments VC to avoid toeing out. foam pad stepping Details foam and blue cushion Reps/Duration X10 foam X 15 blue cushion Comments CGA hands above bars retro stepping Details CGA patient hands above bars to use as needed Reps/Duration 10 feet X 3 also fwd stepping C 2 PT-OP-R Modalities Start: 05/10/23 13:44 Freq: Status: Active Protocol: Document 07/09/23 10:15 AB (Rec: 07/09/23 11:36 AB [id number]) Electric Stimulation Electric Stimulation [place]ogolese Stimulation Body Location right quad Intensity 25 Ramp 0.5 Comments 10 on 30 off, performed quad sets, sidelying knee extension from ~90 deg flexion, LAQ AA as unable on initial trials PT-OP-T Assessment and Plan Start: 05/05/23 15:26 Freq: Status: Active Protocol: Document 08/16/23 09:22 AB (Rec: 08/16/23 12:55 AB [id number]) Physical Therapy Assessment Goals Three Impairment Pt currently demonstrating 0/5 MMT right quad Promotions Assistant Sales Marketing Goal (LTG) Pt to exhibit 2-/5 MMT or greater of right quad in order to improve ability to limit knee buckling. LTG Duration 10/28/23 - Improving Two Impairment Pt ambulates 174' during Two Minute Walk Test using FWW Chcf Goal (LTG) Pt to exhibit ability to complete full 6MWT with no rest breaks using LRAD, ambulating >600' in order to demonstrate improve gait speed and activity tolerance LTG Duration 10/28/23 - Improving One Impairment Pt does not have an appropriate home exercise program Short Term Goal (STG) Pt to be independent and compliant with an appropriate HEP STG Duration 08/29/23 - improving Assessment Summary Assessment Patient able to perform 2 inch step ups with UE support to 140 lbs of force, 4 inch step ups with UE support, followed by side stepping, retro stepping and fwd stepping without UE use without buckling right knee. Lanette reports calf feels different when cued to avoid toeing out during lateral step up, and no change in sensaion post calf stretches when lateral step ups were initiated again post stretch. Physical Therapy Plan Frequency and Duration Frequency of Treatment 2x/Week Plan of Care Start Date 07/30/23 Plan of Care End Date 10/28/23 Next Visit Focus/Plan Next Note Type Treatment Note Next Visit Plan Continue functional RLE strengthening. SPC training POC: e-stim for quad contraction. Seated hip flexion vs seated SLR to HEP, LE
--- NOTE | 2023-08-18 12:02 | PT.OTN ---
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, right leg, subsequent encounter (08/18/23) Other specified postprocedural states (08/18/23) Physical Therapy Treatment Note PT-OP-A Visit Information Start: 05/05/23 15:26 Freq: Status: Active Protocol: Document 08/18/23 11:15 DCW (Rec: 08/18/23 12:02 DCW [id number]) Out-Patient Physical Therapy Visit Information Visit Information Visit Type Treatment Note Visit Note 09/12 for PN Visit Start Time 11:15 Visit Stop Time 12:00 Visit Number 30 Number of HARDWARE PRESS OPERATOR Visits 0 Evaluation Information Evaluation Date 05/05/23 PT-OP-B Current Condition Start: 05/05/23 15:26 Freq: Status: Active Protocol: Document 05/05/23 13:50 DCW (Rec: 05/05/23 15:48 DCW [id number]) Current Condition History of Current Condition Onset Date 12/31/22 Current Complaints R LE weakness, falls, neuromuscular dysfunction History of Current Condition Pt is a 73 year old female presenting with a complex recent medical history. Pt was brought to ED on 12/31/22 by EMS for nausea, vomiting, and generalized weakness. Was found to have cerebellar bleed and was transferred to [facility]. 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 Pt was at [facility] for 5 1/2 weeks, and then transferred to a rehab facility in [place] for another two months. Pt reports that at [facility], she was up walking around fairly well, but then developed severe nerve pain in her right leg. Found to have a large hematoma in her right low back/hip which ended up compressing right LE nerves. This resulted in loss of motor function and sensory imput from right leg. Pt admits she was miserable waiting for the pain to stop. Due to motor dysfunction in her right leg, was having increased difficulty walking, and spent her time in rehab in a wheelchair. Leg weakness resulted in two fals, both of which yusef her right knee. Pt has recently been working with home health, and is now doing well enough to progress to out-patient PT. Has been walking at home with a FWW, just obtained a 4WW, but not comfortable with it yet. Reports she can get herself to the kitchen, and furniture surf using the countertop and cabinets, and is able to dress and perform pericare independently. Still requires assistance with showering. Has friend helping as caregiver. Treatment Goals Patient/Caregiver Goals Pt's stated goals are to learn how to properly use 4WW, get right LE moving better, and walk on her own. PT-OP-C Subjective Start: 05/05/23 15:26 Freq: Status: Active Protocol: Document 08/18/23 11:15 DCW (Rec: 08/18/23 12:02 DCW [id number]) OP-PT Subjective Patient Comments Patient Comments I'm a little stiff today, but I think it's just because I' ve been doing more. PT-OP-E Functional Tests Start: 05/05/23 15:26 Freq: Status: Active Protocol: Document 07/30/23 11:15 DCW (Rec: 07/30/23 11:42 DCW [id number]) Functional Tests 6 Minute Walk Test Distance 470' Device Used SPC Comments 1.30 ft/sec 30 Second Sit to Stand Test Score x10 repetitions Comments minimal UE use PT-OP-G Mobility & Gait Start: 05/05/23 15:26 Freq: Status: Active Protocol: Document 07/30/23 11:15 DCW (Rec: 07/30/23 11:42 DCW [id number]) OP Gait Assessment Gait Gait Assistance Required: Standby Assistance Distance (Feet) 470 Assistive Devices Assistive Device Gait Belt,Straight Cane Comments Gait Comments Pt uses momentum to advance right leg during swing phase due to absent quad control. Good foot clearance. PT-OP-H Neuro Start: 05/05/23 15:26 Freq: Status: Active Protocol: Document 07/30/23 11:15 DCW (Rec: 07/30/23 11:42 DCW [id number]) Sensation Evaluation Gross Sensation Gross Sensation Right LE Impaired Sensation Description Numbness,Tingling PT-OP-M Strength Start: 05/05/23 15:26 Freq: Status: Active Protocol: Document 07/30/23 11:15 DCW (Rec: 07/30/23 11:42 DCW [id number]) Hip Strength Hip Manual Muscle Testing Right Flexion (L2) 3 Fair Extension (S1) 4+ Good+ Abduction 3 Fair Adduction 3 Fair Left Flexion (L2) 4+ Good+ Extension (S1) 4+ Good+ Abduction 4+ Good+ Adduction 4+ Good+ Knee Strength Knee Manual Muscle Testing Right Flexion (S2) 5 Normal Extension (L3) 1 Trace Left Flexion (S2) 5 Normal Extension (L3) 5 Normal Ankle/Foot Strength Ankle and Foot Manual Muscle Testing Right Dorsiflexion (L4) 4+ Good+ Plantarflexion (S1) 4+ Good+ Left Dorsiflexion (L4) 4+ Good+ Plantarflexion (S1) 4+ Good+ PT-OP-O Vestibular Start: 06/24/23 12:49 Freq: Status: Active Protocol: Document 06/24/23 12:00 DCW (Rec: 06/24/23 12:49 DCW [id number]) Vestibular Assessment Auditory Tests [place] Test Within normal limits Rinne Test Negative Air Conduction Results Equal Visual Testing Smooth Pursuits Horizontal WNL Smooth Pursuits Vertical WNL Saccades Horizontal WNL Heave Test Positive Bilateral Thrust Head Positive Bilateral Spontaneous Nystagmus Negative Positional Testing [place]-Hallpike Negative Left,Negative Right Rolling Test Negative Left,Negative Right PT-OP-Q Treatments Start: 05/05/23 15:26 Freq: Status: Active Protocol: Document 08/18/23 11:15 DCW (Rec: 08/18/23 12:02 DCW [id number]) Cardio Equipment Recumbent Elliptical (Biodex) Duration (Minutes) 6 Resistance 8 Seat Position 7 Other LEs only Gym Equipment Shuttle Balance Red Details WBOS, Staggered Gait Training Gait Activity Stairs Description Ascend/Descend stairs Device Used B Rail, Uni Rail /c SPC, XPC only Level of Assistance CGA Comments Step-to Cane Device Used SPC Level of Assistance CGA Comments Hallway walking 510', Retro walking 2x40', Side-stepping 2x40' PT-OP-R Modalities Start: 05/10/23 13:44 Freq: Status: Active Protocol: Document 07/09/23 10:15 AB (Rec: 07/09/23 11:36 AB [id number]) Electric Stimulation Electric Stimulation Burmese Stimulation Body Location right quad Intensity 25 Ramp 0.5 Comments 10 on 30 off, performed quad sets, sidelying knee extension from ~90 deg flexion, LAQ AA as unable on initial trials PT-OP-T Assessment and Plan Start: 05/05/23 15:26 Freq: Status: Active Protocol: Document 08/18/23 11:15 DCW (Rec: 08/18/23 12:02 DCW [id number]) Physical Therapy Assessment Impairments Impairments Balance,Functional Activities, Functional Mobility,Pain,ROM, Sensation,Soft Tissue Mobility ,Strength,Tone,Transfers Goals Three Impairment Pt currently demonstrating 0/5 MMT right quad Prison Goal (LTG) Pt to exhibit 2-/5 MMT or greater of right quad in order to improve ability to limit knee buckling. LTG Duration 10/28/23 - Improving Two Impairment Pt ambulates 174' during Two Minute Walk Test using FWW Small Machine Bindery Operator Goal (LTG) Pt to exhibit ability to complete full 6MWT with no rest breaks using LRAD, ambulating >600' in order to demonstrate improve gait speed and activity tolerance LTG Duration 10/28/23 - Improving One Impairment Pt does not have an appropriate home exercise program Short Term Goal (STG) Pt to be independent and compliant with an appropriate HEP STG Duration 08/29/23 - improving Assessment Summary Assessment Did well with ambulation today , showing improvement with gait stability using SPC. Addition of retro ambulation, side-stepping, and stairs with cane use. Good tolerance. Physical Therapy Plan Frequency and Duration Frequency of Treatment 2x/Week Plan of Care Start Date 07/30/23 Plan of Care End Date 10/28/23 Therapeutic Interventions Therapeutic Interventions Balance Training,Coordination Training,Gait Training,Home Exercise Program,Joint Mobilizations,Manual Therapy, Neuromuscular Re-education, Patient/Caregiver Education, Self-Care/Home Management, Sensory Integration,Soft Tissue Mobilization, Therapeutic Activities, Therapeutic Exercises Next Visit Focus/Plan Next Note Type Treatment Note Next Visit Plan Continue functional RLE strengthening. SPC training POC: e-stim for quad contraction. Seated hip flexion vs seated SLR to HEP, LE
--- NOTE | 2023-08-23 12:01 | PT.OTN ---
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, right leg, subsequent encounter (08/23/23) Other specified postprocedural states (08/23/23) Physical Therapy Treatment Note PT-OP-A Visit Information Start: 05/05/23 15:26 Freq: Status: Active Protocol: Document 08/23/23 11:18 DCW (Rec: 08/23/23 12:01 DCW [id number]) Out-Patient Physical Therapy Visit Information Visit Information Visit Type Treatment Note Visit Note 10/12 for PN Visit Start Time 11:18 Visit Stop Time 12:00 Visit Number 31 Number of QUEEN PRODUCER Visits 0 Evaluation Information Evaluation Date 05/05/23 PT-OP-B Current Condition Start: 05/05/23 15:26 Freq: Status: Active Protocol: Document 05/05/23 13:50 DCW (Rec: 05/05/23 15:48 DCW [id number]) Current Condition History of Current Condition Onset Date 12/31/22 Current Complaints R LE weakness, falls, neuromuscular dysfunction History of Current Condition Pt is a 73 year old female presenting with a complex recent medical history. Pt was brought to ED on 12/31/22 by EMS for nausea, vomiting, and generalized weakness. Was found to have cerebellar bleed and was transferred to [facility]. 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 Pt was at [facility] for 5 1/2 weeks, and then transferred to a rehab facility in [place] for another two months. Pt reports that at [facility], she was up walking around fairly well, but then developed severe nerve pain in her right leg. Found to have a large hematoma in her right low back/hip which ended up compressing right LE nerves. This resulted in loss of motor function and sensory imput from right leg. Pt admits she was miserable waiting for the pain to stop. Due to motor dysfunction in her right leg, was having increased difficulty walking, and spent her time in rehab in a wheelchair. Leg weakness resulted in two fals, both of which yusef her right knee. Pt has recently been working with home health, and is now doing well enough to progress to out-patient PT. Has been walking at home with a FWW, just obtained a 4WW, but not comfortable with it yet. Reports she can get herself to the kitchen, and furniture surf using the countertop and cabinets, and is able to dress and perform pericare independently. Still requires assistance with showering. Has friend helping as caregiver. Treatment Goals Patient/Caregiver Goals Pt's stated goals are to learn how to properly use 4WW, get right LE moving better, and walk on her own. PT-OP-C Subjective Start: 05/05/23 15:26 Freq: Status: Active Protocol: Document 08/23/23 11:18 DCW (Rec: 08/23/23 12:01 DCW [id number]) OP-PT Subjective Patient Comments Patient Comments My leg feels really stiff today, that seems to happen when I spend too much time on it, and I spent too much time on it yesterday. PT-OP-E Functional Tests Start: 05/05/23 15:26 Freq: Status: Active Protocol: Document 07/30/23 11:15 DCW (Rec: 07/30/23 11:42 DCW [id number]) Functional Tests 6 Minute Walk Test Distance 470' Device Used SPC Comments 1.30 ft/sec 30 Second Sit to Stand Test Score x10 repetitions Comments minimal UE use PT-OP-G Mobility & Gait Start: 05/05/23 15:26 Freq: Status: Active Protocol: Document 07/30/23 11:15 DCW (Rec: 07/30/23 11:42 DCW [id number]) OP Gait Assessment Gait Gait Assistance Required: Standby Assistance Distance (Feet) 470 Assistive Devices Assistive Device Gait Belt,Straight Cane Comments Gait Comments Pt uses momentum to advance right leg during swing phase due to absent quad control. Good foot clearance. PT-OP-H Neuro Start: 05/05/23 15:26 Freq: Status: Active Protocol: Document 07/30/23 11:15 DCW (Rec: 07/30/23 11:42 DCW [id number]) Sensation Evaluation Gross Sensation Gross Sensation Right LE Impaired Sensation Description Numbness,Tingling PT-OP-M Strength Start: 05/05/23 15:26 Freq: Status: Active Protocol: Document 07/30/23 11:15 DCW (Rec: 07/30/23 11:42 DCW [id number]) Hip Strength Hip Manual Muscle Testing Right Flexion (L2) 3 Fair Extension (S1) 4+ Good+ Abduction 3 Fair Adduction 3 Fair Left Flexion (L2) 4+ Good+ Extension (S1) 4+ Good+ Abduction 4+ Good+ Adduction 4+ Good+ Knee Strength Knee Manual Muscle Testing Right Flexion (S2) 5 Normal Extension (L3) 1 Trace Left Flexion (S2) 5 Normal Extension (L3) 5 Normal Ankle/Foot Strength Ankle and Foot Manual Muscle Testing Right Dorsiflexion (L4) 4+ Good+ Plantarflexion (S1) 4+ Good+ Left Dorsiflexion (L4) 4+ Good+ Plantarflexion (S1) 4+ Good+ PT-OP-O Vestibular Start: 06/24/23 12:49 Freq: Status: Active Protocol: Document 06/24/23 12:00 DCW (Rec: 06/24/23 12:49 DCW [id number]) Vestibular Assessment Auditory Tests [place] Test Within normal limits Rinne Test Negative Air Conduction Results Equal Visual Testing Smooth Pursuits Horizontal WNL Smooth Pursuits Vertical WNL Saccades Horizontal WNL Heave Test Positive Bilateral Thrust Head Positive Bilateral Spontaneous Nystagmus Negative Positional Testing [place]-Hallpike Negative Left,Negative Right Rolling Test Negative Left,Negative Right PT-OP-Q Treatments Start: 05/05/23 15:26 Freq: Status: Active Protocol: Document 08/23/23 11:18 DCW (Rec: 08/23/23 12:01 DCW [id number]) Cardio Equipment Recumbent Elliptical ([employer]) Duration (Minutes) 6 Resistance 8 Seat Position 8 Other LEs only Gym Equipment Shuttle Recovery Bilateral Squats Resistance 75# (Three new) Shuttle Recovery Platform Unstable Unilateral Squats Details Right Resistance 25# Shuttle Recovery Platform Stable Reps/Time VCs to limit assist with left Shuttle Balance Red Details WBOS, Staggered Gait Training Gait Activity /s AD Description AD-free ambulation Level of Assistance CGA Comments Fwd, Bkwd, side-stepping Neuro Re-Education Treatment Balance Activities NBOS Details NBOS - eyes closed Tandem Details Tandem Stance Equipment // bars PT-OP-R Modalities Start: 05/10/23 13:44 Freq: Status: Active Protocol: Document 07/09/23 10:15 AB (Rec: 07/09/23 11:36 AB [id number]) Electric Stimulation Electric Stimulation Prydeinig Stimulation Body Location right quad Intensity 25 Ramp 0.5 Comments 10 on 30 off, performed quad sets, sidelying knee extension from ~90 deg flexion, LAQ AA as unable on initial trials PT-OP-T Assessment and Plan Start: 05/05/23 15:26 Freq: Status: Active Protocol: Document 08/23/23 11:18 DCW (Rec: 08/23/23 12:01 DCW [id number]) Physical Therapy Assessment Goals Three Impairment Pt currently demonstrating 0/5 MMT right quad Winch Derrick Operator Goal (LTG) Pt to exhibit 2-/5 MMT or greater of right quad in order to improve ability to limit knee buckling. LTG Duration 10/28/23 - Improving Two Impairment Pt ambulates 174' during Two Minute Walk Test using FWW Winch Derrick Operator Goal (LTG) Pt to exhibit ability to complete full 6MWT with no rest breaks using LRAD, ambulating >600' in order to demonstrate improve gait speed and activity tolerance LTG Duration 10/28/23 - Improving One Impairment Pt does not have an appropriate home exercise program Short Term Goal (STG) Pt to be independent and compliant with an appropriate HEP STG Duration 08/29/23 - improving Assessment Summary Assessment Spend time ambulating AD-free today, CGA. Pt did not experience and LOB or knee buckling. Continues to do well with quad control and eccentric contraction Physical Therapy Plan Frequency and Duration Frequency of Treatment 2x/Week Plan of Care Start Date 07/30/23 Plan of Care End Date 10/28/23 Therapeutic Interventions Therapeutic Interventions Balance Training,Coordination Training,Gait Training,Home Exercise Program,Joint Mobilizations,Manual Therapy, Neuromuscular Re-education, Patient/Caregiver Education, Self-Care/Home Management, Sensory Integration,Soft Tissue Mobilization, Therapeutic Activities, Therapeutic Exercises Next Visit Focus/Plan Next Note Type Treatment Note Next Visit Plan Continue functional RLE strengthening. SPC training POC: Seated hip flexion vs seated SLR to HEP, LE
--- NOTE | 2023-08-31 11:58 | PT.OTN ---
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, right leg, subsequent encounter (08/31/23) Other specified postprocedural states (08/31/23) Physical Therapy Treatment Note PT-OP-A Visit Information Start: 05/05/23 15:26 Freq: Status: Active Protocol: Document 08/31/23 11:15 DCW (Rec: 08/31/23 11:58 DCW [id number]) Out-Patient Physical Therapy Visit Information Visit Information Visit Type Treatment Note Visit Note 11/12 for PN Visit Start Time 11:15 Visit Stop Time 12:00 Visit Number 32 Number of HR LEADER Visits 0 Evaluation Information Evaluation Date 05/05/23 PT-OP-B Current Condition Start: 05/05/23 15:26 Freq: Status: Active Protocol: Document 05/05/23 13:50 DCW (Rec: 05/05/23 15:48 DCW [id number]) Current Condition History of Current Condition Onset Date 12/31/22 Current Complaints R LE weakness, falls, neuromuscular dysfunction History of Current Condition Pt is a 73 year old female presenting with a complex recent medical history. Pt was brought to ED on 12/31/22 by EMS for nausea, vomiting, and generalized weakness. Was found to have cerebellar bleed and was transferred to [facility]. 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 Pt was at [facility] for 5 1/2 weeks, and then transferred to a rehab facility in [place] for another two months. Pt reports that at [facility], she was up walking around fairly well, but then developed severe nerve pain in her right leg. Found to have a large hematoma in her right low back/hip which ended up compressing right LE nerves. This resulted in loss of motor function and sensory imput from right leg. Pt admits she was miserable waiting for the pain to stop. Due to motor dysfunction in her right leg, was having increased difficulty walking, and spent her time in rehab in a wheelchair. Leg weakness resulted in two fals, both of which yusef her right knee. Pt has recently been working with home health, and is now doing well enough to progress to out-patient PT. Has been walking at home with a FWW, just obtained a 4WW, but not comfortable with it yet. Reports she can get herself to the kitchen, and furniture surf using the countertop and cabinets, and is able to dress and perform pericare independently. Still requires assistance with showering. Has friend helping as caregiver. Treatment Goals Patient/Caregiver Goals Pt's stated goals are to learn how to properly use 4WW, get right LE moving better, and walk on her own. PT-OP-C Subjective Start: 05/05/23 15:26 Freq: Status: Active Protocol: Document 08/31/23 11:15 DCW (Rec: 08/31/23 11:58 DCW [id number]) OP-PT Subjective Patient Comments Patient Comments Pt reports she was already put through my paces this morning, had a good workout and practiced some cane ambulation. PT-OP-E Functional Tests Start: 05/05/23 15:26 Freq: Status: Active Protocol: Document 07/30/23 11:15 DCW (Rec: 07/30/23 11:42 DCW [id number]) Functional Tests 6 Minute Walk Test Distance 470' Device Used SPC Comments 1.30 ft/sec 30 Second Sit to Stand Test Score x10 repetitions Comments minimal UE use PT-OP-G Mobility & Gait Start: 05/05/23 15:26 Freq: Status: Active Protocol: Document 07/30/23 11:15 DCW (Rec: 07/30/23 11:42 DCW [id number]) OP Gait Assessment Gait Gait Assistance Required: Standby Assistance Distance (Feet) 470 Assistive Devices Assistive Device Gait Belt,Straight Cane Comments Gait Comments Pt uses momentum to advance right leg during swing phase due to absent quad control. Good foot clearance. PT-OP-H Neuro Start: 05/05/23 15:26 Freq: Status: Active Protocol: Document 07/30/23 11:15 DCW (Rec: 07/30/23 11:42 DCW [id number]) Sensation Evaluation Gross Sensation Gross Sensation Right LE Impaired Sensation Description Numbness,Tingling PT-OP-M Strength Start: 05/05/23 15:26 Freq: Status: Active Protocol: Document 07/30/23 11:15 DCW (Rec: 07/30/23 11:42 DCW [id number]) Hip Strength Hip Manual Muscle Testing Right Flexion (L2) 3 Fair Extension (S1) 4+ Good+ Abduction 3 Fair Adduction 3 Fair Left Flexion (L2) 4+ Good+ Extension (S1) 4+ Good+ Abduction 4+ Good+ Adduction 4+ Good+ Knee Strength Knee Manual Muscle Testing Right Flexion (S2) 5 Normal Extension (L3) 1 Trace Left Flexion (S2) 5 Normal Extension (L3) 5 Normal Ankle/Foot Strength Ankle and Foot Manual Muscle Testing Right Dorsiflexion (L4) 4+ Good+ Plantarflexion (S1) 4+ Good+ Left Dorsiflexion (L4) 4+ Good+ Plantarflexion (S1) 4+ Good+ PT-OP-O Vestibular Start: 06/24/23 12:49 Freq: Status: Active Protocol: Document 06/24/23 12:00 DCW (Rec: 06/24/23 12:49 DCW [id number]) Vestibular Assessment Auditory Tests [place] Test Within normal limits Rinne Test Negative Air Conduction Results Equal Visual Testing Smooth Pursuits Horizontal WNL Smooth Pursuits Vertical WNL Saccades Horizontal WNL Heave Test Positive Bilateral Thrust Head Positive Bilateral Spontaneous Nystagmus Negative Positional Testing [place]-Hallpike Negative Left,Negative Right Rolling Test Negative Left,Negative Right PT-OP-Q Treatments Start: 05/05/23 15:26 Freq: Status: Active Protocol: Document 08/31/23 11:15 DCW (Rec: 08/31/23 11:58 DCW [id number]) Cardio Equipment Recumbent Elliptical (Biodex) Duration (Minutes) 6 Resistance 8 Seat Position 8 Other LEs only Gym Equipment Shuttle Balance Red Details WBOS (EO/EC, Mini-squat), Staggered Therapeutic Exercises Sitting Exercises LAQ Sitting Exercise Name focus on eccentric lowering AA Side right Reps/Minutes X10 Standing Exercises Toe-taps Standing Exercise Name without UE use Side bilateral Equipment Used 6 step Gait Training Gait Activity /s AD Description AD-free ambulation Level of Assistance CGA Comments Fwd, Bkwd, side-stepping Neuro Re-Education Treatment Balance Activities Foam Stance Details Lunge onto BOSU Surface Blue BOSU Equipment // bars PT-OP-R Modalities Start: 05/10/23 13:44 Freq: Status: Active Protocol: Document 07/09/23 10:15 AB (Rec: 07/09/23 11:36 AB [id number]) Electric Stimulation Electric Stimulation Citizen [place] Stimulation Body Location right quad Intensity 25 Ramp 0.5 Comments 10 on 30 off, performed quad sets, sidelying knee extension from ~90 deg flexion, LAQ AA as unable on initial trials PT-OP-T Assessment and Plan Start: 05/05/23 15:26 Freq: Status: Active Protocol: Document 08/31/23 11:15 DCW (Rec: 08/31/23 11:58 DCW [id number]) Physical Therapy Assessment Impairments Impairments Balance,Functional Activities, Functional Mobility,Pain,ROM, Sensation,Soft Tissue Mobility ,Strength,Tone,Transfers Goals Three Impairment Pt currently demonstrating 0/5 MMT right quad Half-Way Goal (LTG) Pt to exhibit 2-/5 MMT or greater of right quad in order to improve ability to limit knee buckling. LTG Duration 10/28/23 - Improving Two Impairment Pt ambulates 174' during Two Minute Walk Test using FWW Half-Way Goal (LTG) Pt to exhibit ability to complete full 6MWT with no rest breaks using LRAD, ambulating >600' in order to demonstrate improve gait speed and activity tolerance LTG Duration 10/28/23 - Improving One Impairment Pt does not have an appropriate home exercise program Short Term Goal (STG) Pt to be independent and compliant with an appropriate HEP STG Duration 08/29/23 - improving Assessment Summary Assessment Pt showing improvement with gait and stability, continues to struggle with voluntary activation of right quad. Physical Therapy Plan Frequency and Duration Frequency of Treatment 2x/Week Plan of Care Start Date 07/30/23 Plan of Care End Date 10/28/23 Therapeutic Interventions Therapeutic Interventions Balance Training,Coordination Training,Gait Training,Home Exercise Program,Joint Mobilizations,Manual Therapy, Neuromuscular Re-education, Patient/Caregiver Education, Self-Care/Home Management, Sensory Integration,Soft Tissue Mobilization, Therapeutic Activities, Therapeutic Exercises Next Visit Focus/Plan Next Note Type Progress Note Next Visit Plan Continue functional RLE strengthening. SPC training POC: Seated hip flexion vs seated SLR to HEP, LE
--- NOTE | 2023-09-02 12:01 | PT.OTN ---
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, right leg, subsequent encounter (09/02/23) Other specified postprocedural states (09/02/23) Physical Therapy Treatment Note PT-OP-A Visit Information Start: 05/05/23 15:26 Freq: Status: Active Protocol: Document 09/02/23 11:19 DCW (Rec: 09/02/23 12:01 DCW [id number]) Out-Patient Physical Therapy Visit Information Visit Information Visit Type Progress Note Visit Start Time 11:19 Visit Stop Time 12:00 Visit Number 33 Number of MICROARRAY ANALYST Visits 0 Evaluation Information Evaluation Date 05/05/23 PT-OP-B Current Condition Start: 05/05/23 15:26 Freq: Status: Active Protocol: Document 05/05/23 13:50 DCW (Rec: 05/05/23 15:48 DCW [id number]) Current Condition History of Current Condition Onset Date 12/31/22 Current Complaints R LE weakness, falls, neuromuscular dysfunction History of Current Condition Pt is a 73 year old female presenting with a complex recent medical history. Pt was brought to ED on 12/31/22 by EMS for nausea, vomiting, and generalized weakness. Was found to have cerebellar bleed and was transferred to [facility]. 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 Pt was at [facility] for 5 1/2 weeks, and then transferred to a rehab facility in [place] for another two months. Pt reports that at [facility], she was up walking around fairly well, but then developed severe nerve pain in her right leg. Found to have a large hematoma in her right low back/hip which ended up compressing right LE nerves. This resulted in loss of motor function and sensory imput from right leg. Pt admits she was miserable waiting for the pain to stop. Due to motor dysfunction in her right leg, was having increased difficulty walking, and spent her time in rehab in a wheelchair. Leg weakness resulted in two fals, both of which yusef her right knee. Pt has recently been working with home health, and is now doing well enough to progress to out-patient PT. Has been walking at home with a FWW, just obtained a 4WW, but not comfortable with it yet. Reports she can get herself to the kitchen, and furniture surf using the countertop and cabinets, and is able to dress and perform pericare independently. Still requires assistance with showering. Has friend helping as caregiver. Treatment Goals Patient/Caregiver Goals Pt's stated goals are to learn how to properly use 4WW, get right LE moving better, and walk on her own. PT-OP-C Subjective Start: 05/05/23 15:26 Freq: Status: Active Protocol: Document 09/02/23 11:19 DCW (Rec: 09/02/23 12:01 DCW [id number]) OP-PT Subjective Patient Comments Patient Comments No pains, everything's about the same as last time. PT-OP-E Functional Tests Start: 05/05/23 15: Freq: Status: Active Protocol: Document 07/30/23 11:15 DCW (Rec: 07/30/23 11:42 DCW [id number]) Functional Tests 6 Minute Walk Test Distance 470' Device Used SPC Comments 1.30 ft/sec 30 Second Sit to Stand Test Score x10 repetitions Comments minimal UE use PT-OP-G Mobility & Gait Start: 05/05/23 15:26 Freq: Status: Active Protocol: Document 07/30/23 11:15 DCW (Rec: 07/30/23 11:42 DCW [id number]) OP Gait Assessment Gait Gait Assistance Required: Standby Assistance Distance (Feet) 470 Assistive Devices Assistive Device Gait Belt,Straight Cane Comments Gait Comments Pt uses momentum to advance right leg during swing phase due to absent quad control. Good foot clearance. PT-OP-H Neuro Start: 05/05/23 15: Freq: Status: Active Protocol: Document 07/30/23 11:15 DCW (Rec: 07/30/23 11:42 DCW [id number]) Sensation Evaluation Gross Sensation Gross Sensation Right LE Impaired Sensation Description Numbness,Tingling PT-OP-M Strength Start: 05/05/23 15:26 Freq: Status: Active Protocol: Document 07/30/23 11:15 DCW (Rec: 07/30/23 11:42 DCW [id number]) Hip Strength Hip Manual Muscle Testing Right Flexion (L2) 3 Fair Extension (S1) 4+ Good+ Abduction 3 Fair Adduction 3 Fair Left Flexion (L2) 4+ Good+ Extension (S1) 4+ Good+ Abduction 4+ Good+ Adduction 4+ Good+ Knee Strength Knee Manual Muscle Testing Right Flexion (S2) 5 Normal Extension (L3) 1 Trace Left Flexion (S2) 5 Normal Extension (L3) 5 Normal Ankle/Foot Strength Ankle and Foot Manual Muscle Testing Right Dorsiflexion (L4) 4+ Good+ Plantarflexion (S1) 4+ Good+ Left Dorsiflexion (L4) 4+ Good+ Plantarflexion (S1) 4+ Good+ PT-OP-O Vestibular Start: 06/24/23 12:49 Freq: Status: Active Protocol: Document 06/24/23 12:00 DCW (Rec: 06/24/23 12:49 DCW [id number]) Vestibular Assessment Auditory Tests [place] Test Within normal limits Rinne Test Negative Air Conduction Results Equal Visual Testing Smooth Pursuits Horizontal WNL Smooth Pursuits Vertical WNL Saccades Horizontal WNL Heave Test Positive Bilateral Thrust Head Positive Bilateral Spontaneous Nystagmus Negative Positional Testing [place]-Hallpike Negative Left,Negative Right Rolling Test Negative Left,Negative Right PT-OP-Q Treatments Start: 05/05/23 15:26 Freq: Status: Active Protocol: Document 09/02/23 11:19 DCW (Rec: 09/02/23 12:01 DCW [id number]) Cardio Equipment Recumbent Bicycle Duration (Minutes) 5 Resistance 5 Seat Position 5 Gym Equipment Shuttle Balance Red Details WBOS (EO/EC, Mini-squat), Staggered Gait Training Gait Activity /s AD Description AD-free ambulation Level of Assistance CGA Comments Fwd, Bkwd, side-stepping PT-OP-R Modalities Start: 05/10/23 13:44 Freq: Status: Active Protocol: Document 07/09/23 10:15 AB (Rec: 07/09/23 11:36 AB [id number]) Electric Stimulation Electric Stimulation [place] Stimulation Body Location right quad Intensity 25 Ramp 0.5 Comments 10 on 30 off, performed quad sets, sidelying knee extension from ~90 deg flexion, LAQ AA as unable on initial trials PT-OP-T Assessment and Plan Start: 05/05/23 15:26 Freq: Status: Active Protocol: Document 09/02/23 11:19 DCW (Rec: 09/02/23 12:01 [facility] [id number]) Physical Therapy Assessment Impairments Impairments Balance,Functional Activities, Functional Mobility,Pain,ROM, Sensation,Soft Tissue Mobility ,Strength,Tone,Transfers Goals Three Impairment Pt currently demonstrating 0/5 MMT right quad Fpc Goal (LTG) Pt to exhibit 2-/5 MMT or greater of right quad in order to improve ability to limit knee buckling. LTG Duration 10/28/23 - Improving Two Impairment Pt ambulates 174' during Two Minute Walk Test using FWW Ammonia Box Tender Goal (LTG) Pt to exhibit ability to complete full 6MWT with no rest breaks using LRAD, ambulating >600' in order to demonstrate improve gait speed and activity tolerance LTG Duration 10/28/23 - Improving One Impairment Pt does not have an appropriate home exercise program Short Term Goal (STG) Pt to be independent and compliant with an appropriate HEP STG Duration 08/29/23 - improving Assessment Summary Assessment Trial of 6MWT /c SPC. Improvement from last attempt, 470'-> 510', no LOB, able to avoid obstacles. Pt continues to progress well, increased time using SPC, continuing to work on AD-free ambulation in clinic. Physical Therapy Plan Frequency and Duration Frequency of Treatment 2x/Week Plan of Care Start Date 07/30/23 Plan of Care End Date 10/28/23 Therapeutic Interventions Therapeutic Interventions Balance Training,Coordination Training,Gait Training,Home Exercise Program,Joint Mobilizations,Manual Therapy, Neuromuscular Re-education, Patient/Caregiver Education, Self-Care/Home Management, Sensory Integration,Soft Tissue Mobilization, Therapeutic Activities, Therapeutic Exercises Next Visit Focus/Plan Next Note Type Treatment Note Next Visit Plan Continue functional RLE strengthening. SPC training POC: Seated hip flexion vs seated SLR to HEP, LE
--- NOTE | 2023-09-08 16:33 | PT.OTN ---
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, right leg, subsequent encounter (09/08/23) Other specified postprocedural states (09/08/23) Physical Therapy Treatment Note PT-OP-A Visit Information Start: 05/05/23 15:26 Freq: Status: Active Protocol: Document 09/08/23 13:00 AB (Rec: 09/08/23 16:32 AB [id number]) Out-Patient Physical Therapy Visit Information Visit Information Visit Type Treatment Note Visit Note 05/15 for PN Visit Start Time 13:48 Visit Stop Time 14:32 Visit Number 34 Number of LABORATORY WORKER Visits 1 Evaluation Information Evaluation Date 05/05/23 PT-OP-B Current Condition Start: 05/05/23 15:26 Freq: Status: Active Protocol: Document 05/05/23 13:50 DCW (Rec: 05/05/23 15:48 DCW [id number]) Current Condition History of Current Condition Onset Date 12/31/22 Current Complaints R LE weakness, falls, neuromuscular dysfunction History of Current Condition Pt is a 73 year old female presenting with a complex recent medical history. Pt was brought to ED on 12/31/22 by EMS for nausea, vomiting, and generalized weakness. Was found to have cerebellar bleed and was transferred to [facility]. 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 Pt was at [facility] for 5 1/2 weeks, and then transferred to a rehab facility in [place] for another two months. Pt reports that at [facility], she was up walking around fairly well, but then developed severe nerve pain in her right leg. Found to have a large hematoma in her right low back/hip which ended up compressing right LE nerves. This resulted in loss of motor function and sensory imput from right leg. Pt admits she was miserable waiting for the pain to stop. Due to motor dysfunction in her right leg, was having increased difficulty walking, and spent her time in rehab in a wheelchair. Leg weakness resulted in two fals, both of which yusef her right knee. Pt has recently been working with home health, and is now doing well enough to progress to out-patient PT. Has been walking at home with a FWW, just obtained a 4WW, but not comfortable with it yet. Reports she can get herself to the kitchen, and furniture surf using the countertop and cabinets, and is able to dress and perform pericare independently. Still requires assistance with showering. Has friend helping as caregiver. Treatment Goals Patient/Caregiver Goals Pt's stated goals are to learn how to properly use 4WW, get right LE moving better, and walk on her own. PT-OP-C Subjective Start: 05/05/23 15:26 Freq: Status: Active Protocol: Document 09/08/23 13:00 AB (Rec: 09/08/23 16:32 AB [id number]) OP-PT Subjective Patient Comments Patient Comments Patient reports she has been leaving the walker aside more, which is making her spouse nervous. SLS right LE 2,2 seconds without UE. PT-OP-E Functional Tests Start: 05/05/23 15:26 Freq: Status: Active Protocol: Document 07/30/23 11:15 DCW (Rec: 07/30/23 11:42 DCW [id number]) Functional Tests 6 Minute Walk Test Distance 470' Device Used SPC Comments 1.30 ft/sec 30 Second Sit to Stand Test Score x10 repetitions Comments minimal UE use PT-OP-G Mobility & Gait Start: 05/05/23 15:26 Freq: Status: Active Protocol: Document 07/30/23 11:15 DCW (Rec: 07/30/23 11:42 DCW [id number]) OP Gait Assessment Gait Gait Assistance Required: Standby Assistance Distance (Feet) 470 Assistive Devices Assistive Device Gait Belt,Straight Cane Comments Gait Comments Pt uses momentum to advance right leg during swing phase due to absent quad control. Good foot clearance. PT-OP-H Neuro Start: 05/05/23 15:26 Freq: Status: Active Protocol: Document 07/30/23 11:15 DCW (Rec: 07/30/23 11:42 DCW [id number]) Sensation Evaluation Gross Sensation Gross Sensation Right LE Impaired Sensation Description Numbness,Tingling PT-OP-M Strength Start: 05/05/23 15:26 Freq: Status: Active Protocol: Document 07/30/23 11:15 DCW (Rec: 07/30/23 11:42 DCW [id number]) Hip Strength Hip Manual Muscle Testing Right Flexion (L2) 3 Fair Extension (S1) 4+ Good+ Abduction 3 Fair Adduction 3 Fair Left Flexion (L2) 4+ Good+ Extension (S1) 4+ Good+ Abduction 4+ Good+ Adduction 4+ Good+ Knee Strength Knee Manual Muscle Testing Right Flexion (S2) 5 Normal Extension (L3) 1 Trace Left Flexion (S2) 5 Normal Extension (L3) 5 Normal Ankle/Foot Strength Ankle and Foot Manual Muscle Testing Right Dorsiflexion (L4) 4+ Good+ Plantarflexion (S1) 4+ Good+ Left Dorsiflexion (L4) 4+ Good+ Plantarflexion (S1) 4+ Good+ PT-OP-O Vestibular Start: 06/24/23 12:49 Freq: Status: Active Protocol: Document 06/24/23 12:00 DCW (Rec: 06/24/23 12:49 RIW [id number]) Vestibular Assessment Auditory Tests [place] Test Within normal limits Rinne Test Negative Air Conduction Results Equal Visual Testing Smooth Pursuits Horizontal WNL Smooth Pursuits Vertical WNL Saccades Horizontal WNL Heave Test Positive Bilateral Thrust Head Positive Bilateral Spontaneous Nystagmus Negative Positional Testing [place]-Hallpike Negative Left,Negative Right Rolling Test Negative Left,Negative Right PT-OP-Q Treatments Start: 05/05/23 15:26 Freq: Status: Active Protocol: Document 09/08/23 13:00 AB (Rec: 09/08/23 16:32 AB [id number]) Therapeutic Exercises Supine Exercises AA slr Supine Exercise Name with tapping to facilitate quad Reps/Minutes X10 Sidelying Exercises sidelying knee extension Side right Resistance level one lightly looped bandl Reps/Minutes X10 X2 without band X 10 with lightly looped band Sitting Exercises seated SLR Sitting Exercise Name with tapping to facilitate quads Side right Reps/Minutes 10 seated hip abduction Equipment Used level 4 blue band Reps/Minutes one minute X1 also 10 X 3 Comments Verbal cues Standing Exercises single leg heel raise Standing Exercise Name Bilateral and single leg Reps/Minutes X15 X 2 step up Standing Exercise Name 4 inch step step up step back Equipment Used 4 inch step Reps/Minutes X6 Comments CGA fatigues rapidly lateral step up Standing Exercise Name UE use Side right Equipment Used 2 inch step and 4 inch step Reps/Minutes CGA 4 inch step X 6 fatigues 2 inch X 10 Comments CGA Neuro Re-Education Treatment Balance Activities step up taps alternating Details CGA patient hands above bars to use as needed Equipment 4 inch step Reps/Duration X12 retro stepping Details CGA patient hands above bars to use as needed Reps/Duration 10 feet X 3 tandem stepping Details CGA patient hands above bars to use as needed Reps/Duration 10 feet X 3 PT-OP-R Modalities Start: 05/10/23 13:44 Freq: Status: Active Protocol: Document 07/09/23 10:15 AB (Rec: 07/09/23 11:36 AB [id number]) Electric Stimulation Electric Stimulation [place] Stimulation Body Location right quad Intensity 25 Ramp 0.5 Comments 10 on 30 off, performed quad sets, sidelying knee extension from ~90 deg flexion, LAQ AA as unable on initial trials PT-OP-T Assessment and Plan Start: 05/05/23 15:26 Freq: Status: Active Protocol: Document 09/08/23 13:00 AB (Rec: 09/08/23 16:32 AB [id number]) Physical Therapy Assessment Goals Three Impairment Pt currently demonstrating 0/5 MMT right quad Shelter Goal (LTG) Pt to exhibit 2-/5 MMT or greater of right quad in order to improve ability to limit knee buckling. LTG Duration 10/28/23 - Improving Two Impairment Pt ambulates 174' during Two Minute Walk Test using FWW Shelter Goal (LTG) Pt to exhibit ability to complete full 6MWT with no rest breaks using LRAD, ambulating >600' in order to demonstrate improve gait speed and activity tolerance LTG Duration 10/28/23 - Improving One Impairment Pt does not have an appropriate home exercise program Short Term Goal (STG) Pt to be independent and compliant with an appropriate HEP STG Duration 08/29/23 - improving Assessment Summary Assessment Lanette into session with decreased daniela to 4 inch lateral step up, but good return demonstration with 2 inch step upright LE. Pt was able to fully extend right knee against lightly looped theraband in sidelying. Physical Therapy Plan Frequency and Duration Frequency of Treatment 2x/Week Plan of Care Start Date 07/30/23 Plan of Care End Date 10/28/23 Next Visit Focus/Plan Next Note Type Treatment Note Next Visit Plan Continue functional RLE strengthening. SPC training POC: AA supine vs seated SLR post tapping to facilitate quad to HEP, Reassess sidelying knee extension with lightly tied level one band
--- NOTE | 2023-09-10 15:40 | PT.OTN ---
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, right leg, subsequent encounter (09/10/23) Other specified postprocedural states (09/10/23) Physical Therapy Treatment Note PT-OP-A Visit Information Start: 05/05/23 15:26 Freq: Status: Active Protocol: Document 09/10/23 12:49 AB (Rec: 09/10/23 15:40 AB [id number]) Out-Patient Physical Therapy Visit Information Visit Information Visit Type Treatment Note Visit Note 06/12 for PN Visit Start Time 14:35 Visit Stop Time 15:19 Visit Number 35 Number of COUNTY [place] AUDITOR Visits 2 Evaluation Information Evaluation Date 05/05/23 PT-OP-B Current Condition Start: 05/05/23 15:26 Freq: Status: Active Protocol: Document 05/05/23 13:50 DCW (Rec: 05/05/23 15:48 DCW [id number]) Current Condition History of Current Condition Onset Date 12/31/22 Current Complaints R LE weakness, falls, neuromuscular dysfunction History of Current Condition Pt is a 73 year old female presenting with a complex recent medical history. Pt was brought to ED on 12/31/22 by EMS for nausea, vomiting, and generalized weakness. Was found to have cerebellar bleed and was transferred to [facility]. 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 Pt was at [facility] for 5 1/2 weeks, and then transferred to a rehab facility in [place] for another two months. Pt reports that at [facility], she was up walking around fairly well, but then developed severe nerve pain in her right leg. Found to have a large hematoma in her right low back/hip which ended up compressing right LE nerves. This resulted in loss of motor function and sensory imput from right leg. Pt admits she was miserable waiting for the pain to stop. Due to motor dysfunction in her right leg, was having increased difficulty walking, and spent her time in rehab in a wheelchair. Leg weakness resulted in two fals, both of which yusef her right knee. Pt has recently been working with home health, and is now doing well enough to progress to out-patient PT. Has been walking at home with a FWW, just obtained a 4WW, but not comfortable with it yet. Reports she can get herself to the kitchen, and furniture surf using the countertop and cabinets, and is able to dress and perform pericare independently. Still requires assistance with showering. Has friend helping as caregiver. Treatment Goals Patient/Caregiver Goals Pt's stated goals are to learn how to properly use 4WW, get right LE moving better, and walk on her own. PT-OP-C Subjective Start: 05/05/23 15:26 Freq: Status: Active Protocol: Document 09/10/23 12:49 AB (Rec: 09/10/23 15:40 AB [id number]) OP-PT Subjective Patient Comments Patient Comments Spouse into this session for training for facilitation to quad. Spouse/patient report not performing HEP due to gardening. PT-OP-E Functional Tests Start: 05/05/23 15:26 Freq: Status: Active Protocol: Document 07/30/23 11:15 DCW (Rec: 07/30/23 11:42 DCW [id number]) Functional Tests 6 Minute Walk Test Distance 470' Device Used SPC Comments 1.30 ft/sec 30 Second Sit to Stand Test Score x10 repetitions Comments minimal UE use PT-OP-G Mobility & Gait Start: 05/05/23 15:26 Freq: Status: Active Protocol: Document 07/30/23 11:15 DCW (Rec: 07/30/23 11:42 DCW [id number]) OP Gait Assessment Gait Gait Assistance Required: Standby Assistance Distance (Feet) 470 Assistive Devices Assistive Device Gait Belt,Straight Cane Comments Gait Comments Pt uses momentum to advance right leg during swing phase due to absent quad control. Good foot clearance. PT-OP-H Neuro Start: 05/05/23 15:26 Freq: Status: Active Protocol: Document 07/30/23 11:15 DCW (Rec: 07/30/23 11:42 DCW [id number]) Sensation Evaluation Gross Sensation Gross Sensation Right LE Impaired Sensation Description Numbness,Tingling PT-OP-M Strength Start: 05/05/23 15:26 Freq: Status: Active Protocol: Document 07/30/23 11:15 DCW (Rec: 07/30/23 11:42 DCW [id number]) Hip Strength Hip Manual Muscle Testing Right Flexion (L2) 3 Fair Extension (S1) 4+ Good+ Abduction 3 Fair Adduction 3 Fair Left Flexion (L2) 4+ Good+ Extension (S1) 4+ Good+ Abduction 4+ Good+ Adduction 4+ Good+ Knee Strength Knee Manual Muscle Testing Right Flexion (S2) 5 Normal Extension (L3) 1 Trace Left Flexion (S2) 5 Normal Extension (L3) 5 Normal Ankle/Foot Strength Ankle and Foot Manual Muscle Testing Right Dorsiflexion (L4) 4+ Good+ Plantarflexion (S1) 4+ Good+ Left Dorsiflexion (L4) 4+ Good+ Plantarflexion (S1) 4+ Good+ PT-OP-O Vestibular Start: 06/24/23 12:49 Freq: Status: Active Protocol: Document 06/24/23 12:00 DCW (Rec: 06/24/23 12:49 DCW [id number]) Vestibular Assessment Auditory Tests [place] Test Within normal limits Rinne Test Negative Air Conduction Results Equal Visual Testing Smooth Pursuits Horizontal WNL Smooth Pursuits Vertical WNL Saccades Horizontal WNL Heave Test Positive Bilateral Thrust Head Positive Bilateral Spontaneous Nystagmus Negative Positional Testing [place]-Hallpike Negative Left,Negative Right Rolling Test Negative Left,Negative Right PT-OP-Q Treatments Start: 05/05/23 15:26 Freq: Status: Active Protocol: Document 09/10/23 12:49 AB (Rec: 09/10/23 15:40 AB [id number]) Gym Equipment Shuttle Balance Red Details WBOS ( Mini-squat), Staggered Comments CGA, verbal cues for head turns and visual scanning during WBOS, Verbal cues to equalize weight shift during mini squat Therapeutic Exercises Supine Exercises AA slr Supine Exercise Name with tapping to facilitate quad Side right Reps/Minutes X9 Comments initiated with therapist, then therapist and spouse, ending with spouse Sitting Exercises seated SLR Sitting Exercise Name with tapping to facilitate quads Side right Reps/Minutes 1 seated hip abduction Equipment Used level 4 blue band Reps/Minutes one minute X1 also 10 X 2 Comments Verbal cues Standing Exercises step up Standing Exercise Name 4 inch step up/back, scale * both with UE use Side right Equipment Used 4 inch steps/scale-lateral step up Reps/Minutes X10 and X 12 Comments CGA verbal cues to use entire body weight on scale Neuro Re-Education Treatment Balance Activities Hurdles Details CGA Reps/Duration 10 feet X 6 Comments Verbal and visual cues for reciprocal pattern foam pad stepping Details foam and blue cushion Reps/Duration 10blue cushion Comments CGA hands above bars step up taps alternating Details CGA patient hands above bars to use as needed Equipment 8 inch step Reps/Duration X12 tandem stepping Details CGA patient hands above bars to use as needed Reps/Duration 10 feet X 6 PT-OP-R Modalities Start: 05/10/23 13:44 Freq: Status: Active Protocol: Document 07/09/23 10:15 AB (Rec: 07/09/23 11:36 AB [id number]) Electric Stimulation Electric Stimulation [place] Stimulation Body Location right quad Intensity 25 Ramp 0.5 Comments 10 on 30 off, performed quad sets, sidelying knee extension from ~90 deg flexion, LAQ AA as unable on initial trials PT-OP-T Assessment and Plan Start: 05/05/23 15:26 Freq: Status: Active Protocol: Document 09/10/23 12:49 AB (Rec: 09/10/23 15:40 AB [id number]) Physical Therapy Assessment Goals Three Impairment Pt currently demonstrating 0/5 MMT right quad Nursing Home Goal (LTG) Pt to exhibit 2-/5 MMT or greater of right quad in order to improve ability to limit knee buckling. LTG Duration 10/28/23 - Improving Two Impairment Pt ambulates 174' during Two Minute Walk Test using FWW Collar Closer Lockstitch Goal (LTG) Pt to exhibit ability to complete full 6MWT with no rest breaks using LRAD, ambulating >600' in order to demonstrate improve gait speed and activity tolerance LTG Duration 10/28/23 - Improving One Impairment Pt does not have an appropriate home exercise program Short Term Goal (STG) Pt to be independent and compliant with an appropriate HEP STG Duration 08/29/23 - improving Assessment Summary Assessment Single leg stance right LE 5 seconds during LE exercises without UE use, with CGA. Improved control with 4 inch step up step back this session , decreased control by 10th repetition. Physical Therapy Plan Frequency and Duration Frequency of Treatment 2x/Week Plan of Care Start Date 07/30/23 Plan of Care End Date 10/28/23 Next Visit Focus/Plan Next Note Type Treatment Note Next Visit Plan Continue functional RLE strengthening. SPC training POC: Balance
--- NOTE | 2023-09-16 12:21 | PT.OTN ---
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, right leg, subsequent encounter (09/16/23) Other specified postprocedural states (09/16/23) Physical Therapy Treatment Note PT-OP-A Visit Information Start: 05/05/23 15:26 Freq: Status: Active Protocol: Document 09/16/23 09:49 SW (Rec: 09/16/23 11:17 SW [id number]) Out-Patient Physical Therapy Visit Information Visit Information Visit Type Treatment Note Visit Note 07/13 for PN Visit Start Time 10:30 Visit Stop Time 11:10 Visit Number 36 Number of RAIL CAR REPAIR CARMAN Visits 3 PT-OP-B Current Condition Start: 05/05/23 15:26 Freq: Status: Active Protocol: Document 05/05/23 13:50 DCW (Rec: 05/05/23 15:48 DCW [id number]) Current Condition History of Current Condition Onset Date 12/31/22 Current Complaints R LE weakness, falls, neuromuscular dysfunction History of Current Condition Pt is a 73 year old female presenting with a complex recent medical history. Pt was brought to ED on 12/31/22 by EMS for nausea, vomiting, and generalized weakness. Was found to have cerebellar bleed and was transferred to [facility]. 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 Pt was at [facility] for 5 1/2 weeks, and then transferred to a rehab facility in [place] for another two months. Pt reports that at [facility], she was up walking around fairly well, but then developed severe nerve pain in her right leg. Found to have a large hematoma in her right low back/hip which ended up compressing right LE nerves. This resulted in loss of motor function and sensory imput from right leg. Pt admits she was miserable waiting for the pain to stop. Due to motor dysfunction in her right leg, was having increased difficulty walking, and spent her time in rehab in a wheelchair. Leg weakness resulted in two fals, both of which yusef her right knee. Pt has recently been working with home health, and is now doing well enough to progress to out-patient PT. Has been walking at home with a FWW, just obtained a 4WW, but not comfortable with it yet. Reports she can get herself to the kitchen, and furniture surf using the countertop and cabinets, and is able to dress and perform pericare independently. Still requires assistance with showering. Has friend helping as caregiver. Treatment Goals Patient/Caregiver Goals Pt's stated goals are to learn how to properly use 4WW, get right LE moving better, and walk on her own. PT-OP-C Subjective Start: 05/05/23 15:26 Freq: Status: Active Protocol: Document 09/16/23 09:49 SW (Rec: 09/16/23 11:17 SW [id number]) OP-PT Subjective Patient Comments Patient Comments Pt reports fall aprox 5 days ago, denies injury, no bruising, or current pain, pt able to use transfer training and successfully able to get up from fall. PT-OP-E Functional Tests Start: 05/05/23 15:26 Freq: Status: Active Protocol: Document 07/30/23 11:15 DCW (Rec: 07/30/23 11:42 DCW [id number]) Functional Tests 6 Minute Walk Test Distance 470' Device Used SPC Comments 1.30 ft/sec 30 Second Sit to Stand Test Score x10 repetitions Comments minimal UE use PT-OP-G Mobility & Gait Start: 05/05/23 15:26 Freq: Status: Active Protocol: Document 07/30/23 11:15 DCW (Rec: 07/30/23 11:42 DCW [id number]) OP Gait Assessment Gait Gait Assistance Required: Standby Assistance Distance (Feet) 470 Assistive Devices Assistive Device Gait Belt,Straight Cane Comments Gait Comments Pt uses momentum to advance right leg during swing phase due to absent quad control. Good foot clearance. PT-OP-H Neuro Start: 05/05/23 15:26 Freq: Status: Active Protocol: Document 07/30/23 11:15 DCW (Rec: 07/30/23 11:42 DCW [id number]) Sensation Evaluation Gross Sensation Gross Sensation Right LE Impaired Sensation Description Numbness,Tingling PT-OP-M Strength Start: 05/05/23 15:26 Freq: Status: Active Protocol: Document 07/30/23 11:15 DCW (Rec: 07/30/23 11:42 DCW [id number]) Hip Strength Hip Manual Muscle Testing Right Flexion (L2) 3 Fair Extension (S1) 4+ Good+ Abduction 3 Fair Adduction 3 Fair Left Flexion (L2) 4+ Good+ Extension (S1) 4+ Good+ Abduction 4+ Good+ Adduction 4+ Good+ Knee Strength Knee Manual Muscle Testing Right Flexion (S2) 5 Normal Extension (L3) 1 Trace Left Flexion (S2) 5 Normal Extension (L3) 5 Normal Ankle/Foot Strength Ankle and Foot Manual Muscle Testing Right Dorsiflexion (L4) 4+ Good+ Plantarflexion (S1) 4+ Good+ Left Dorsiflexion (L4) 4+ Good+ Plantarflexion (S1) 4+ Good+ PT-OP-O Vestibular Start: 06/24/23 12:49 Freq: Status: Active Protocol: Document 06/24/23 12:00 DCW (Rec: 06/24/23 12:49 DCW [id number]) Vestibular Assessment Auditory Tests [place] Test Within normal limits Rinne Test Negative Air Conduction Results Equal Visual Testing Smooth Pursuits Horizontal WNL Smooth Pursuits Vertical WNL Saccades Horizontal WNL Heave Test Positive Bilateral Thrust Head Positive Bilateral Spontaneous Nystagmus Negative Positional Testing [place]-Hallpike Negative Left,Negative Right Rolling Test Negative Left,Negative Right PT-OP-Q Treatments Start: 05/05/23 15:26 Freq: Status: Active Protocol: Document 09/16/23 09:49 SW (Rec: 09/16/23 11:17 SW [id number]) Cardio Equipment Recumbent Elliptical (Biodex) Duration (Minutes) 6 Resistance 8 Seat Position 8 Other LEs only Gym Equipment Shuttle Balance Red Details WBOS ( Mini-squat), Staggered, AP Comments CGA, verbal cues for head turns and visual scanning during WBOS, Verbal cues to equalize weight shift during mini squat Therapeutic Exercises Supine Exercises quad sets Supine Exercise Name rolled towel under knee Reps/Minutes 3X10 ( X10 each position noted above) Comments VC for quad activation vs glute Sitting Exercises seated marching Sitting Exercise Name Seated hip flexion Reps/Minutes X10 Comments verbal cues for slow controlled movement Standing Exercises step up Standing Exercise Name 4 inch step up/back Side right Equipment Used 4 inch step Reps/Minutes 2 x 10 Comments CGA verbal cues to use entire body weight on scale lateral step up Standing Exercise Name UE use Side right Equipment Used 4 inch step Reps/Minutes CGA 4 inch step X5 Comments CGA, fatigue Gait Training Gait Activity /s AD Description AD-free ambulation Level of Assistance CGA Comments Fwd, Bkwd, side-stepping Neuro Re-Education Treatment Balance Activities retro stepping Details CGA patient hands above bars to use as needed Reps/Duration 10 feet X 3 PT-OP-R Modalities Start: 05/10/23 13:44 Freq: Status: Active Protocol: Document 07/09/23 10:15 AB (Rec: 07/09/23 11:36 AB [id number]) Electric Stimulation Electric Stimulation [place] Stimulation Body Location right quad Intensity 25 Ramp 0.5 Comments 10 on 30 off, performed quad sets, sidelying knee extension from ~90 deg flexion, LAQ AA as unable on initial trials PT-OP-T Assessment and Plan Start: 05/05/23 15:26 Freq: Status: Active Protocol: Document 09/16/23 09:49 SW (Rec: 09/16/23 11:17 SW [id number]) Physical Therapy Assessment Goals Three Impairment Pt currently demonstrating 0/5 MMT right quad Rib Builder Goal (LTG) Pt to exhibit 2-/5 MMT or greater of right quad in order to improve ability to limit knee buckling. LTG Duration 10/28/23 - Improving Two Impairment Pt ambulates 174' during Two Minute Walk Test using FWW Care Home Goal (LTG) Pt to exhibit ability to complete full 6MWT with no rest breaks using LRAD, ambulating >600' in order to demonstrate improve gait speed and activity tolerance LTG Duration 10/28/23 - Improving One Impairment Pt does not have an appropriate home exercise program Short Term Goal (STG) Pt to be independent and compliant with an appropriate HEP STG Duration 08/29/23 - improving Assessment Summary Assessment Pt reports fall ~5 days ago, denies injury and feels appropriate for PT, reported that the transfer training received here in PT helped her to be able to successfully get up from fall. Pt tolerated session well. Pt quick to fatigue in R quad with 4 step ups. Reviewed quad sets this session for increasing quad strength toward pt goals, mod verbal/tactile ques for quad activation and to decrease hip compensation, pt challeneged. Physical Therapy Plan Frequency and Duration Frequency of Treatment 2x/Week Plan of Care Start Date 07/30/23 Plan of Care End Date 10/28/23 Therapeutic Interventions Therapeutic Interventions Balance Training,Coordination Training,Gait Training,Home Exercise Program,Joint Mobilizations,Manual Therapy, Neuromuscular Re-education, Patient/Caregiver Education, Self-Care/Home Management, Sensory Integration,Soft Tissue Mobilization, Therapeutic Activities, Therapeutic Exercises Next Visit Focus/Plan Next Note Type Treatment Note Next Visit Plan Continue functional RLE strengthening. SPC training POC: Balance
--- NOTE | 2023-09-24 16:29 | PT.OTN ---
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, right leg, subsequent encounter (09/24/23) Other specified postprocedural states (09/24/23) Physical Therapy Treatment Note PT-OP-A Visit Information Start: 05/05/23 15:26 Freq: Status: Active Protocol: Document 09/24/23 13:17 AB (Rec: 09/24/23 16:29 AB [id number]) Out-Patient Physical Therapy Visit Information Visit Information Visit Type Treatment Note Visit Note 08/12 for PN Visit Start Time 14:33 Visit Stop Time 15:17 Visit Number 37 Number of HISTORICAL INTERPRETER Visits 4 Evaluation Information Evaluation Date 05/05/23 PT-OP-B Current Condition Start: 05/05/23 15:26 Freq: Status: Active Protocol: Document 05/05/23 13:50 DCW (Rec: 05/05/23 15:48 DCW [id number]) Current Condition History of Current Condition Onset Date 12/31/22 Current Complaints R LE weakness, falls, neuromuscular dysfunction History of Current Condition Pt is a 73 year old female presenting with a complex recent medical history. Pt was brought to ED on 12/31/22 by EMS for nausea, vomiting, and generalized weakness. Was found to have cerebellar bleed and was transferred to [facility]. 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 Pt was at [facility] for 5 1/2 weeks, and then transferred to a rehab facility in [place] for another two months. Pt reports that at [facility], she was up walking around fairly well, but then developed severe nerve pain in her right leg. Found to have a large hematoma in her right low back/hip which ended up compressing right LE nerves. This resulted in loss of motor function and sensory imput from right leg. Pt admits she was miserable waiting for the pain to stop. Due to motor dysfunction in her right leg, was having increased difficulty walking, and spent her time in rehab in a wheelchair. Leg weakness resulted in two fals, both of which yusef her right knee. Pt has recently been working with home health, and is now doing well enough to progress to out-patient PT. Has been walking at home with a FWW, just obtained a 4WW, but not comfortable with it yet. Reports she can get herself to the kitchen, and furniture surf using the countertop and cabinets, and is able to dress and perform pericare independently. Still requires assistance with showering. Has friend helping as caregiver. Treatment Goals Patient/Caregiver Goals Pt's stated goals are to learn how to properly use 4WW, get right LE moving better, and walk on her own. PT-OP-C Subjective Start: 05/05/23 15:26 Freq: Status: Active Protocol: Document 09/24/23 13:17 AB (Rec: 09/24/23 16:29 AB [id number]) OP-PT Subjective Patient Comments Patient Comments Patient reports having no falls since previous session. Patient reports she is banned from going out on the patio alone. right knee swollen with areas of density right quad. PT-OP-E Functional Tests Start: 05/05/23 15:26 Freq: Status: Active Protocol: Document 07/30/23 11:15 DCW (Rec: 07/30/23 11:42 DCW [id number]) Functional Tests 6 Minute Walk Test Distance 470' Device Used SPC Comments 1.30 ft/sec 30 Second Sit to Stand Test Score x10 repetitions Comments minimal UE use PT-OP-G Mobility & Gait Start: 05/05/23 15:26 Freq: Status: Active Protocol: Document 07/30/23 11:15 DCW (Rec: 07/30/23 11:42 DCW [id number]) OP Gait Assessment Gait Gait Assistance Required: Standby Assistance Distance (Feet) 470 Assistive Devices Assistive Device Gait Belt,Straight Cane Comments Gait Comments Pt uses momentum to advance right leg during swing phase due to absent quad control. Good foot clearance. PT-OP-H Neuro Start: 05/05/23 15:26 Freq: Status: Active Protocol: Document 07/30/23 11:15 DCW (Rec: 07/30/23 11:42 DCW [id number]) Sensation Evaluation Gross Sensation Gross Sensation Right LE Impaired Sensation Description Numbness,Tingling PT-OP-M Strength Start: 05/05/23 15:26 Freq: Status: Active Protocol: Document 07/30/23 11:15 DCW (Rec: 07/30/23 11:42 DCW [id number]) Hip Strength Hip Manual Muscle Testing Right Flexion (L2) 3 Fair Extension (S1) 4+ Good+ Abduction 3 Fair Adduction 3 Fair Left Flexion (L2) 4+ Good+ Extension (S1) 4+ Good+ Abduction 4+ Good+ Adduction 4+ Good+ Knee Strength Knee Manual Muscle Testing Right Flexion (S2) 5 Normal Extension (L3) 1 Trace Left Flexion (S2) 5 Normal Extension (L3) 5 Normal Ankle/Foot Strength Ankle and Foot Manual Muscle Testing Right Dorsiflexion (L4) 4+ Good+ Plantarflexion (S1) 4+ Good+ Left Dorsiflexion (L4) 4+ Good+ Plantarflexion (S1) 4+ Good+ PT-OP-O Vestibular Start: 06/24/23 12:49 Freq: Status: Active Protocol: Document 06/24/23 12:00 DCW (Rec: 06/24/23 12:49 DCW [id number]) Vestibular Assessment Auditory Tests [place] Test Within normal limits Rinne Test Negative Air Conduction Results Equal Visual Testing Smooth Pursuits Horizontal WNL Smooth Pursuits Vertical WNL Saccades Horizontal WNL Heave Test Positive Bilateral Thrust Head Positive Bilateral Spontaneous Nystagmus Negative Positional Testing [place]-Hallpike Negative Left,Negative Right Rolling Test Negative Left,Negative Right PT-OP-Q Treatments Start: 05/05/23 15:26 Freq: Status: Active Protocol: Document 09/24/23 13:17 AB (Rec: 09/24/23 16:29 AB [id number]) Gym Equipment Shuttle Balance Red Details WBOS and stagger stance Comments CGA verbal cues for head turns and scanning. Therapeutic Exercises Sidelying Exercises sidelying knee extension Sidelying Exercise Name AROM with and without pillow between knees Side right Resistance level one lightly looped bandl Reps/Minutes X10 X2 Sitting Exercises seated SLR Sitting Exercise Name with tapping to facilitate quads Side right Reps/Minutes 10X Comments AA seated hip abduction Equipment Used level 4 blue band Reps/Minutes one minute X1 also 10 X 2 Comments Verbal cues Standing Exercises step up Standing Exercise Name on scale step up step back, step fwd X 1/12 Side right Equipment Used ~2 inch Reps/Minutes X12 Comments CGA verbal cues for full body weight and to begin bending on step off Gait Training Gait Activity Cane Device Used SPC Level of Assistance CGA Comments Verbal cues for head turns and visual scanning Manual Therapy Treatment Soft Tissue Mobilization STM quad and hamstring right Le Body Location for swelling and areas of increased density right quad Mobilization Type Cross-Friction,Rolling,Other Intensity/Depth Moderate Body Position Hooklying Comments Monitored for pain Neuro Re-Education Treatment Balance Activities forward T Details single leg lift with UE use Reps/Duration X10 each LE Comments CGA slightly unsteady with UE use Mats with objects Reps/Duration 2 mats fwd and back X 2 Comments CGA to very minimal assist PT-OP-R Modalities Start: 05/10/23 13:44 Freq: Status: Active Protocol: Document 07/09/23 10:15 AB (Rec: 07/09/23 11:36 AB [id number]) Electric Stimulation Electric Stimulation [place]ag[place] Stimulation Body Location right quad Intensity 25 Ramp 0.5 Comments 10 on 30 off, performed quad sets, sidelying knee extension from ~90 deg flexion, LAQ AA as unable on initial trials PT-OP-T Assessment and Plan Start: 05/05/23 15:26 Freq: Status: Active Protocol: Document 09/24/23 13:17 AB (Rec: 09/24/23 16:29 AB [id number]) Physical Therapy Assessment Goals Three Impairment Pt currently demonstrating 0/5 MMT right quad Reach Truck Operator Goal (LTG) Pt to exhibit 2-/5 MMT or greater of right quad in order to improve ability to limit knee buckling. LTG Duration 10/28/23 - Improving Two Impairment Pt ambulates 174' during Two Minute Walk Test using FWW Snf Goal (LTG) Pt to exhibit ability to complete full 6MWT with no rest breaks using LRAD, ambulating >600' in order to demonstrate improve gait speed and activity tolerance LTG Duration 10/28/23 - Improving One Impairment Pt does not have an appropriate home exercise program Short Term Goal (STG) Pt to be independent and compliant with an appropriate HEP STG Duration 08/29/23 - improving Assessment Summary Assessment Noted increased swelling right knee compared to left, and areas of increased tissue density. Patient was able to perform scale step ups step back, and balance exercises with no reports of increased knee pain this session. Physical Therapy Plan Frequency and Duration Frequency of Treatment 2x/Week Plan of Care Start Date 07/30/23 Plan of Care End Date 10/28/23 Next Visit Focus/Plan Next Note Type Treatment Note Next Visit Plan Continue functional RLE strengthening. SPC training POC: Balance
--- NOTE | 2023-09-28 12:46 | PT.OTN ---
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, right leg, subsequent encounter (09/28/23) Other specified postprocedural states (09/28/23) Physical Therapy Treatment Note PT-OP-A Visit Information Start: 05/05/23 15:26 Freq: Status: Active Protocol: Document 09/28/23 12:03 DCW (Rec: 09/28/23 12:46 DCW [id number]) Out-Patient Physical Therapy Visit Information Visit Information Visit Type Treatment Note Visit Note 09/12 for PN Visit Start Time 12:03 Visit Stop Time 12:45 Visit Number 38 Number of BED MANAGER Visits 0 Evaluation Information Evaluation Date 05/05/23 PT-OP-B Current Condition Start: 05/05/23 15:26 Freq: Status: Active Protocol: Document 05/05/23 13:50 DCW (Rec: 05/05/23 15:48 DCW [id number]) Current Condition History of Current Condition Onset Date 12/31/22 Current Complaints R LE weakness, falls, neuromuscular dysfunction History of Current Condition Pt is a 73 year old female presenting with a complex recent medical history. Pt was brought to ED on 12/31/22 by EMS for nausea, vomiting, and generalized weakness. Was found to have cerebellar bleed and was transferred to [facility]. 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 Pt was at [facility] for 5 1/2 weeks, and then transferred to a rehab facility in [place] for another two months. Pt reports that at [facility], she was up walking around fairly well, but then developed severe nerve pain in her right leg. Found to have a large hematoma in her right low back/hip which ended up compressing right LE nerves. This resulted in loss of motor function and sensory imput from right leg. Pt admits she was miserable waiting for the pain to stop. Due to motor dysfunction in her right leg, was having increased difficulty walking, and spent her time in rehab in a wheelchair. Leg weakness resulted in two fals, both of which yusef her right knee. Pt has recently been working with home health, and is now doing well enough to progress to out-patient PT. Has been walking at home with a FWW, just obtained a 4WW, but not comfortable with it yet. Reports she can get herself to the kitchen, and furniture surf using the countertop and cabinets, and is able to dress and perform pericare independently. Still requires assistance with showering. Has friend helping as caregiver. Treatment Goals Patient/Caregiver Goals Pt's stated goals are to learn how to properly use 4WW, get right LE moving better, and walk on her own. PT-OP-C Subjective Start: 05/05/23 15:26 Freq: Status: Active Protocol: Document 09/28/23 12:03 DCW (Rec: 09/28/23 12:46 DCW [id number]) OP-PT Subjective Patient Comments Patient Comments Pt still feeling alright after her fall, no lingering injuries. PT-OP-E Functional Tests Start: 05/05/23 15:26 Freq: Status: Active Protocol: Document 07/30/23 11:15 DCW (Rec: 07/30/23 11:42 DCW [id number]) Functional Tests 6 Minute Walk Test Distance 470' Device Used SPC Comments 1.30 ft/sec 30 Second Sit to Stand Test Score x10 repetitions Comments minimal UE use PT-OP-G Mobility & Gait Start: 05/05/23 15:26 Freq: Status: Active Protocol: Document 07/30/23 11:15 DCW (Rec: 07/30/23 11:42 DCW [id number]) OP Gait Assessment Gait Gait Assistance Required: Standby Assistance Distance (Feet) 470 Assistive Devices Assistive Device Gait Belt,Straight Cane Comments Gait Comments Pt uses momentum to advance right leg during swing phase due to absent quad control. Good foot clearance. PT-OP-H Neuro Start: 05/05/23 15:26 Freq: Status: Active Protocol: Document 07/30/23 11:15 DCW (Rec: 07/30/23 11:42 DCW [id number]) Sensation Evaluation Gross Sensation Gross Sensation Right LE Impaired Sensation Description Numbness,Tingling PT-OP-M Strength Start: 05/05/23 15:26 Freq: Status: Active Protocol: Document 07/30/23 11:15 DCW (Rec: 07/30/23 11:42 DCW [id number]) Hip Strength Hip Manual Muscle Testing Right Flexion (L2) 3 Fair Extension (S1) 4+ Good+ Abduction 3 Fair Adduction 3 Fair Left Flexion (L2) 4+ Good+ Extension (S1) 4+ Good+ Abduction 4+ Good+ Adduction 4+ Good+ Knee Strength Knee Manual Muscle Testing Right Flexion (S2) 5 Normal Extension (L3) 1 Trace Left Flexion (S2) 5 Normal Extension (L3) 5 Normal Ankle/Foot Strength Ankle and Foot Manual Muscle Testing Right Dorsiflexion (L4) 4+ Good+ Plantarflexion (S1) 4+ Good+ Left Dorsiflexion (L4) 4+ Good+ Plantarflexion (S1) 4+ Good+ PT-OP-O Vestibular Start: 06/24/23 12:49 Freq: Status: Active Protocol: Document 06/24/23 12:00 DCW (Rec: 06/24/23 12:49 DCW [id number]) Vestibular Assessment Auditory Tests Zurita Test Within normal limits Rinne Test Negative Air Conduction Results Equal Visual Testing Smooth Pursuits Horizontal WNL Smooth Pursuits Vertical WNL Saccades Horizontal WNL Heave Test Positive Bilateral Thrust Head Positive Bilateral Spontaneous Nystagmus Negative Positional Testing Ortega-Hallpike Negative Left,Negative Right Rolling Test Negative Left,Negative Right PT-OP-Q Treatments Start: 05/05/23 15:26 Freq: Status: Active Protocol: Document 09/28/23 12:03 DCW (Rec: 09/28/23 12:46 DCW [id number]) Cardio Equipment Recumbent Elliptical (BiodCloudmach) Duration (Minutes) 6 Resistance 8 Seat Position 8 Other LEs only Therapeutic Exercises Other Exercises Step Lunge Other Exercise Name Step lunge Side bilateral Equipment Used BOSU Comments // bars Step-ups Other Exercise Name Step-ups Side right Resistance AROM Equipment Used 2, 4 steps Reps/Minutes x15 Comments tried 6 step, exclusively used UEs to lift up Resisted Ambulation Other Exercise Name Resisted side-stepping, forward c-stepping Side bilateral Resistance [place] loop #3 at mid gerard (added for home) Reps/Minutes 15 ft x2 laps Comments improved soft R knee, cued L foot clearance Gait Training Gait Activity Cane Device Used SPC Level of Assistance CGA Comments Verbal cues for head turns and visual scanning Neuro Re-Education Treatment Balance Activities Ball/Cone transfers Details Ball/cone transfers Comments 12 cones/6 balls PT-OP-R Modalities Start: 05/10/23 13:44 Freq: Status: Active Protocol: Document 07/09/23 10:15 AB (Rec: 07/09/23 11:36 AB [id number]) Electric Stimulation Electric Stimulation [place] Stimulation Body Location right quad Intensity 25 Ramp 0.5 Comments 10 on 30 off, performed quad sets, sidelying knee extension from ~90 deg flexion, LAQ AA as unable on initial trials PT-OP-T Assessment and Plan Start: 05/05/23 15:26 Freq: Status: Active Protocol: Document 09/28/23 12:03 DCW (Rec: 09/28/23 12:46 DCW [id number]) Physical Therapy Assessment Impairments Impairments Balance,Functional Activities, Functional Mobility,Pain,ROM, Sensation,Soft Tissue Mobility ,Strength,Tone,Transfers Goals Three Impairment Pt currently demonstrating 0/5 MMT right quad Insole Tack Puller Hand Goal (LTG) Pt to exhibit 2-/5 MMT or greater of right quad in order to improve ability to limit knee buckling. LTG Duration 10/28/23 - Improving Two Impairment Pt ambulates 174' during Two Minute Walk Test using FWW Insole Tack Puller Hand Goal (LTG) Pt to exhibit ability to complete full 6MWT with no rest breaks using LRAD, ambulating >600' in order to demonstrate improve gait speed and activity tolerance LTG Duration 10/28/23 - Improving One Impairment Pt does not have an appropriate home exercise program Short Term Goal (STG) Pt to be independent and compliant with an appropriate HEP STG Duration 08/29/23 - improving Assessment Summary Assessment Good response to new balance challenges, did well with ball /cone transfers. No instances of knee buckling, even on shuttle balance or with BOSU lunge. Physical Therapy Plan Frequency and Duration Frequency of Treatment 2x/Week Plan of Care Start Date 07/30/23 Plan of Care End Date 10/28/23 Therapeutic Interventions Therapeutic Interventions Balance Training,Coordination Training,Gait Training,Home Exercise Program,Joint Mobilizations,Manual Therapy, Neuromuscular Re-education, Patient/Caregiver Education, Self-Care/Home Management, Sensory Integration,Soft Tissue Mobilization, Therapeutic Activities, Therapeutic Exercises Next Visit Focus/Plan Next Note Type Treatment Note Next Visit Plan Continue functional RLE strengthening. SPC training POC: Balance
--- NOTE | 2023-09-30 11:56 | PT.OTN ---
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, right leg, subsequent encounter (09/30/23) Other specified postprocedural states (09/30/23) Physical Therapy Treatment Note PT-OP-A Visit Information Start: 05/05/23 15:26 Freq: Status: Active Protocol: Document 09/30/23 11:15 DCW (Rec: 09/30/23 11:56 DCW [id number]) Out-Patient Physical Therapy Visit Information Visit Information Visit Type Treatment Note Visit Note 10/12 for PN Visit Start Time 11:15 Visit Stop Time 12:00 Visit Number 39 Number of [employer] CLAIMS SUPERVISOR Visits 0 Evaluation Information Evaluation Date 05/05/23 PT-OP-B Current Condition Start: 05/05/23 15:26 Freq: Status: Active Protocol: Document 05/05/23 13:50 DCW (Rec: 05/05/23 15:48 DCW [id number]) Current Condition History of Current Condition Onset Date 12/31/22 Current Complaints R LE weakness, falls, neuromuscular dysfunction History of Current Condition Pt is a 73 year old female presenting with a complex recent medical history. Pt was brought to ED on 12/31/22 by EMS for nausea, vomiting, and generalized weakness. Was found to have cerebellar bleed and was transferred to [facility]. 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 Pt was at [facility] for 5 1/2 weeks, and then transferred to a rehab facility in [place] for another two months. Pt reports that at [facility], she was up walking around fairly well, but then developed severe nerve pain in her right leg. Found to have a large hematoma in her right low back/hip which ended up compressing right LE nerves. This resulted in loss of motor function and sensory imput from right leg. Pt admits she was miserable waiting for the pain to stop. Due to motor dysfunction in her right leg, was having increased difficulty walking, and spent her time in rehab in a wheelchair. Leg weakness resulted in two fals, both of which yusef her right knee. Pt has recently been working with home health, and is now doing well enough to progress to out-patient PT. Has been walking at home with a FWW, just obtained a 4WW, but not comfortable with it yet. Reports she can get herself to the kitchen, and furniture surf using the countertop and cabinets, and is able to dress and perform pericare independently. Still requires assistance with showering. Has friend helping as caregiver. Treatment Goals Patient/Caregiver Goals Pt's stated goals are to learn how to properly use 4WW, get right LE moving better, and walk on her own. PT-OP-C Subjective Start: 05/05/23 15:26 Freq: Status: Active Protocol: Document 09/30/23 11:15 DCW (Rec: 09/30/23 11:56 DCW [id number]) OP-PT Subjective Patient Comments Patient Comments I'm optimistic, things feel like they're getting better. Notes she has felt more confident bending over to pick things up after working on it last time. PT-OP-E Functional Tests Start: 05/05/23 15:26 Freq: Status: Active Protocol: Document 07/30/23 11:15 DCW (Rec: 07/30/23 11:42 DCW [id number]) Functional Tests 6 Minute Walk Test Distance 470' Device Used SPC Comments 1.30 ft/sec 30 Second Sit to Stand Test Score x10 repetitions Comments minimal UE use PT-OP-G Mobility & Gait Start: 05/05/23 15:26 Freq: Status: Active Protocol: Document 07/30/23 11:15 DCW (Rec: 07/30/23 11:42 DCW [id number]) OP Gait Assessment Gait Gait Assistance Required: Standby Assistance Distance (Feet) 470 Assistive Devices Assistive Device Gait Belt,Straight Cane Comments Gait Comments Pt uses momentum to advance right leg during swing phase due to absent quad control. Good foot clearance. PT-OP-H Neuro Start: 05/05/23 15:26 Freq: Status: Active Protocol: Document 07/30/23 11:15 DCW (Rec: 07/30/23 11:42 DCW [id number]) Sensation Evaluation Gross Sensation Gross Sensation Right LE Impaired Sensation Description Numbness,Tingling PT-OP-M Strength Start: 05/05/23 15:26 Freq: Status: Active Protocol: Document 07/30/23 11:15 DCW (Rec: 07/30/23 11:42 DCW [id number]) Hip Strength Hip Manual Muscle Testing Right Flexion (L2) 3 Fair Extension (S1) 4+ Good+ Abduction 3 Fair Adduction 3 Fair Left Flexion (L2) 4+ Good+ Extension (S1) 4+ Good+ Abduction 4+ Good+ Adduction 4+ Good+ Knee Strength Knee Manual Muscle Testing Right Flexion (S2) 5 Normal Extension (L3) 1 Trace Left Flexion (S2) 5 Normal Extension (L3) 5 Normal Ankle/Foot Strength Ankle and Foot Manual Muscle Testing Right Dorsiflexion (L4) 4+ Good+ Plantarflexion (S1) 4+ Good+ Left Dorsiflexion (L4) 4+ Good+ Plantarflexion (S1) 4+ Good+ PT-OP-O Vestibular Start: 06/24/23 12:49 Freq: Status: Active Protocol: Document 06/24/23 12:00 DCW (Rec: 06/24/23 12:49 DCW [id number]) Vestibular Assessment Auditory Tests Zurita Test Within normal limits Rinne Test Negative Air Conduction Results Equal Visual Testing Smooth Pursuits Horizontal WNL Smooth Pursuits Vertical WNL Saccades Horizontal WNL Heave Test Positive Bilateral Thrust Head Positive Bilateral Spontaneous Nystagmus Negative Positional Testing Ortega-Hallpike Negative Left,Negative Right Rolling Test Negative Left,Negative Right PT-OP-Q Treatments Start: 05/05/23 15:26 Freq: Status: Active Protocol: Document 09/30/23 11:15 DCW (Rec: 09/30/23 11:56 DCW [id number]) Cardio Equipment Recumbent Elliptical (Biodwufoo) Duration (Minutes) 6 Resistance 8 Seat Position 8 Other LEs only Gym Equipment Shuttle Balance Red Details WBOS and stagger (EO/EC) Comments CGA Therapeutic Exercises Other Exercises Resisted Ambulation Other Exercise Name Resisted side-stepping Side bilateral Resistance Green loop Neuro Re-Education Treatment Balance Activities Ball/Cone transfers Details Ball/cone transfers Comments Cross-body pick-up of balls from [employer], then tossing to bucket. Both from floor and from foam pads. PT-OP-R Modalities Start: 05/10/23 13:44 Freq: Status: Active Protocol: Document 07/09/23 10:15 AB (Rec: 07/09/23 11:36 AB [id number]) Electric Stimulation Electric Stimulation French Stimulation Body Location right quad Intensity 25 Ramp 0.5 Comments 10 on 30 off, performed quad sets, sidelying knee extension from ~90 deg flexion, LAQ AA as unable on initial trials PT-OP-T Assessment and Plan Start: 05/05/23 15:26 Freq: Status: Active Protocol: Document 09/30/23 11:15 DCW (Rec: 09/30/23 11:56 DCW [id number]) Physical Therapy Assessment Impairments Impairments Balance,Functional Activities, Functional Mobility,Pain,ROM, Sensation,Soft Tissue Mobility ,Strength,Tone,Transfers Goals Three Impairment Pt currently demonstrating 0/5 MMT right quad Half-Way Goal (LTG) Pt to exhibit 2-/5 MMT or greater of right quad in order to improve ability to limit knee buckling. LTG Duration 10/28/23 - Improving Two Impairment Pt ambulates 174' during Two Minute Walk Test using FWW Half-Way Goal (LTG) Pt to exhibit ability to complete full 6MWT with no rest breaks using LRAD, ambulating >600' in order to demonstrate improve gait speed and activity tolerance LTG Duration 10/28/23 - Improving One Impairment Pt does not have an appropriate home exercise program Short Term Goal (STG) Pt to be independent and compliant with an appropriate HEP STG Duration 08/29/23 - improving Assessment Summary Assessment Continues good response to increasing challenges, did very well with ball pick-up from foam, but was a clear challenge. Physical Therapy Plan Frequency and Duration Frequency of Treatment 2x/Week Plan of Care Start Date 07/30/23 Plan of Care End Date 10/28/23 Therapeutic Interventions Therapeutic Interventions Balance Training,Coordination Training,Gait Training,Home Exercise Program,Joint Mobilizations,Manual Therapy, Neuromuscular Re-education, Patient/Caregiver Education, Self-Care/Home Management, Sensory Integration,Soft Tissue Mobilization, Therapeutic Activities, Therapeutic Exercises Next Visit Focus/Plan Next Note Type Treatment Note Next Visit Plan Continue functional RLE strengthening. SPC training POC: Balance
--- NOTE | 2023-10-05 16:24 | PT.OTN ---
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, right leg, subsequent encounter (10/05/23) Other specified postprocedural states (10/05/23) Physical Therapy Treatment Note PT-OP-A Visit Information Start: 05/05/23 15:26 Freq: Status: Active Protocol: Document 10/05/23 14:11 AB (Rec: 10/05/23 16:23 AB [id number]) Out-Patient Physical Therapy Visit Information Visit Information Visit Type Treatment Note PT-OP-B Current Condition Start: 05/05/23 15:26 Freq: Status: Active Protocol: Document 05/05/23 13:50 DCW (Rec: 05/05/23 15:48 DCW [id number]) Current Condition History of Current Condition Onset Date 12/31/22 Current Complaints R LE weakness, falls, neuromuscular dysfunction History of Current Condition Pt is a 73 year old female presenting with a complex recent medical history. Pt was brought to ED on 12/31/22 by EMS for nausea, vomiting, and generalized weakness. Was found to have cerebellar bleed and was transferred to [facility]. 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 Pt was at [facility] for 5 1/2 weeks, and then transferred to a rehab facility in [place] for another two months. Pt reports that at [facility], she was up walking around fairly well, but then developed severe nerve pain in her right leg. Found to have a large hematoma in her right low back/hip which ended up compressing right LE nerves. This resulted in loss of motor function and sensory imput from right leg. Pt admits she was miserable waiting for the pain to stop. Due to motor dysfunction in her right leg, was having increased difficulty walking, and spent her time in rehab in a wheelchair. Leg weakness resulted in two fals, both of which yusef her right knee. Pt has recently been working with home health, and is now doing well enough to progress to out-patient PT. Has been walking at home with a FWW, just obtained a 4WW, but not comfortable with it yet. Reports she can get herself to the kitchen, and furniture surf using the countertop and cabinets, and is able to dress and perform pericare independently. Still requires assistance with showering. Has friend helping as caregiver. Treatment Goals Patient/Caregiver Goals Pt's stated goals are to learn how to properly use 4WW, get right LE moving better, and walk on her own. PT-OP-C Subjective Start: 05/05/23 15:26 Freq: Status: Active Protocol: Document 10/05/23 14:11 AB (Rec: 10/05/23 16:23 AB [id number]) OP-PT Subjective Patient Comments Patient Comments Lanette reports the exercise with the balls was difficult, but she was able to do it. PT-OP-E Functional Tests Start: 05/05/23 15:26 Freq: Status: Active Protocol: Document 07/30/23 11:15 DCW (Rec: 07/30/23 11:42 DCW [id number]) Functional Tests 6 Minute Walk Test Distance 470' Device Used SPC Comments 1.30 ft/sec 30 Second Sit to Stand Test Score x10 repetitions Comments minimal UE use PT-OP-G Mobility & Gait Start: 05/05/23 15:26 Freq: Status: Active Protocol: Document 07/30/23 11:15 DCW (Rec: 07/30/23 11:42 DCW [id number]) OP Gait Assessment Gait Gait Assistance Required: Standby Assistance Distance (Feet) 470 Assistive Devices Assistive Device Gait Belt,Straight Cane Comments Gait Comments Pt uses momentum to advance right leg during swing phase due to absent quad control. Good foot clearance. PT-OP-H Neuro Start: 05/05/23 15:26 Freq: Status: Active Protocol: Document 07/30/23 11:15 DCW (Rec: 07/30/23 11:42 DCW [id number]) Sensation Evaluation Gross Sensation Gross Sensation Right LE Impaired Sensation Description Numbness,Tingling PT-OP-M Strength Start: 05/05/23 15:26 Freq: Status: Active Protocol: Document 07/30/23 11:15 DCW (Rec: 07/30/23 11:42 DCW [id number]) Hip Strength Hip Manual Muscle Testing Right Flexion (L2) 3 Fair Extension (S1) 4+ Good+ Abduction 3 Fair Adduction 3 Fair Left Flexion (L2) 4+ Good+ Extension (S1) 4+ Good+ Abduction 4+ Good+ Adduction 4+ Good+ Knee Strength Knee Manual Muscle Testing Right Flexion (S2) 5 Normal Extension (L3) 1 Trace Left Flexion (S2) 5 Normal Extension (L3) 5 Normal Ankle/Foot Strength Ankle and Foot Manual Muscle Testing Right Dorsiflexion (L4) 4+ Good+ Plantarflexion (S1) 4+ Good+ Left Dorsiflexion (L4) 4+ Good+ Plantarflexion (S1) 4+ Good+ PT-OP-O Vestibular Start: 06/24/23 12:49 Freq: Status: Active Protocol: Document 06/24/23 12:00 DCW (Rec: 06/24/23 12:49 DCW [id number]) Vestibular Assessment Auditory Tests Zurita Test Within normal limits Rinne Test Negative Air Conduction Results Equal Visual Testing Smooth Pursuits Horizontal WNL Smooth Pursuits Vertical WNL Saccades Horizontal WNL Heave Test Positive Bilateral Thrust Head Positive Bilateral Spontaneous Nystagmus Negative Positional Testing [place]-Hallpike Negative Left,Negative Right Rolling Test Negative Left,Negative Right PT-OP-Q Treatments Start: 05/05/23 15:26 Freq: Status: Active Protocol: Document 10/05/23 14:11 AB (Rec: 10/05/23 16:23 AB [id number]) Therapeutic Exercises Supine Exercises hip and knee extension with band Side right Equipment Used manual resistance the suleman 4 band Reps/Minutes X 10 and X 15 Sidelying Exercises sidelying knee extension Sidelying Exercise Name AROM Side right Resistance level 2 band and level one band Reps/Minutes X10 X 2 Sitting Exercises seated hip abduction Equipment Used level 2 blue band Reps/Minutes one minute X 1 Comments Verbal cues LAQ Sitting Exercise Name kicking large ball, blue Side right Reps/Minutes 2 min Standing Exercises step up Standing Exercise Name on scale step up step back, step fwd X 1/12 Side right Equipment Used ~2 inch Reps/Minutes X10 Comments Verbal and visual cues Manual Therapy Treatment Consent Patient gave verbal consent for manual Yes treatment Soft Tissue Mobilization STM quad and hamstring right Le Body Location for minimal swelling and areas of increased density right quad Mobilization Type Cross-Friction,Rolling,Other Intensity/Depth Moderate Body Position Hooklying Comments Monitored for pain Neuro Re-Education Treatment Balance Activities Ball/Cone transfers Details Ball/cone transfers Comments Cross-body pick-up of balls from [employer], then tossing to bucket. Both from floor and from foam pads. Hurdles Details CGA Reps/Duration 10 feet X 6 Comments Verbal and visual cues for reciprocal pattern tandem stepping Details CGA patient hands above bars to use as needed Reps/Duration 10 feet X 6 PT-OP-R Modalities Start: 05/10/23 13:44 Freq: Status: Active Protocol: Document 07/09/23 10:15 AB (Rec: 07/09/23 11:36 AB [id number]) Electric Stimulation Electric Stimulation [place] Stimulation Body Location right quad Intensity 25 Ramp 0.5 Comments 10 on 30 off, performed quad sets, sidelying knee extension from ~90 deg flexion, LAQ AA as unable on initial trials PT-OP-T Assessment and Plan Start: 05/05/23 15:26 Freq: Status: Active Protocol: Document 10/05/23 14:11 AB (Rec: 10/05/23 16:23 AB [id number]) Physical Therapy Assessment Goals Three Impairment Pt currently demonstrating 0/5 MMT right quad Operations Agent Goal (LTG) Pt to exhibit 2-/5 MMT or greater of right quad in order to improve ability to limit knee buckling. LTG Duration 10/28/23 - Improving Two Impairment Pt ambulates 174' during Two Minute Walk Test using FWW Long-Term Goal (LTG) Pt to exhibit ability to complete full 6MWT with no rest breaks using LRAD, ambulating >600' in order to demonstrate improve gait speed and activity tolerance LTG Duration 10/28/23 - Improving One Impairment Pt does not have an appropriate home exercise program Short Term Goal (STG) Pt to be independent and compliant with an appropriate HEP STG Duration 08/29/23 - improving Physical Therapy Plan Frequency and Duration Frequency of Treatment 2x/Week Plan of Care Start Date 07/30/23 Plan of Care End Date 10/28/23 Next Visit Focus/Plan Next Note Type Treatment Note Next Visit Plan Continue functional RLE strengthening. SPC training POC: Balance
--- NOTE | 2023-10-12 16:15 | PT.OTN ---
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, right leg, subsequent encounter (10/12/23) Other specified postprocedural states (10/12/23) Physical Therapy Treatment Note PT-OP-A Visit Information Start: 05/05/23 15:26 Freq: Status: Active Protocol: Document 10/12/23 13:49 AB (Rec: 10/12/23 16:15 AB [id number]) Out-Patient Physical Therapy Visit Information Visit Information Visit Note Access Code: [email or web address] Visit Start Time 13:50 Visit Stop Time 14:32 Visit Number 41 Number of DIGITAL MARKETING MANAGER Visits 2 Evaluation Information Evaluation Date 05/05/23 PT-OP-B Current Condition Start: 05/05/23 15:26 Freq: Status: Active Protocol: Document 05/05/23 13:50 DCW (Rec: 05/05/23 15:48 DCW [id number]) Current Condition History of Current Condition Onset Date 12/31/22 Current Complaints R LE weakness, falls, neuromuscular dysfunction History of Current Condition Pt is a 73 year old female presenting with a complex recent medical history. Pt was brought to ED on 12/31/22 by EMS for nausea, vomiting, and generalized weakness. Was found to have cerebellar bleed and was transferred to [facility]. 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 Pt was at [facility] for 5 1/2 weeks, and then transferred to a rehab facility in [place] for another two months. Pt reports that at [facility], she was up walking around fairly well, but then developed severe nerve pain in her right leg. Found to have a large hematoma in her right low back/hip which ended up compressing right LE nerves. This resulted in loss of motor function and sensory imput from right leg. Pt admits she was miserable waiting for the pain to stop. Due to motor dysfunction in her right leg, was having increased difficulty walking, and spent her time in rehab in a wheelchair. Leg weakness resulted in two fals, both of which yusef her right knee. Pt has recently been working with home health, and is now doing well enough to progress to out-patient PT. Has been walking at home with a FWW, just obtained a 4WW, but not comfortable with it yet. Reports she can get herself to the kitchen, and furniture surf using the countertop and cabinets, and is able to dress and perform pericare independently. Still requires assistance with showering. Has friend helping as caregiver. Treatment Goals Patient/Caregiver Goals Pt's stated goals are to learn how to properly use 4WW, get right LE moving better, and walk on her own. PT-OP-C Subjective Start: 05/05/23 15:26 Freq: Status: Active Protocol: Document 10/12/23 13:49 AB (Rec: 10/12/23 16:15 AB [id number]) OP-PT Subjective Patient Comments Patient Comments Patient reports having no falls, comments she is impressed that she can do more and the knee being less swollen helps. PT-OP-E Functional Tests Start: 05/05/23 15:26 Freq: Status: Active Protocol: Document 07/30/23 11:15 DCW (Rec: 07/30/23 11:42 DCW [id number]) Functional Tests 6 Minute Walk Test Distance 470' Device Used SPC Comments 1.30 ft/sec 30 Second Sit to Stand Test Score x10 repetitions Comments minimal UE use PT-OP-G Mobility & Gait Start: 05/05/23 15:26 Freq: Status: Active Protocol: Document 07/30/23 11:15 DCW (Rec: 07/30/23 11:42 DCW [id number]) OP Gait Assessment Gait Gait Assistance Required: Standby Assistance Distance (Feet) 470 Assistive Devices Assistive Device Gait Belt,Straight Cane Comments Gait Comments Pt uses momentum to advance right leg during swing phase due to absent quad control. Good foot clearance. PT-OP-H Neuro Start: 05/05/23 15:26 Freq: Status: Active Protocol: Document 07/30/23 11:15 DCW (Rec: 07/30/23 11:42 DCW [id number]) Sensation Evaluation Gross Sensation Gross Sensation Right LE Impaired Sensation Description Numbness,Tingling PT-OP-M Strength Start: 05/05/23 15:26 Freq: Status: Active Protocol: Document 07/30/23 11:15 DCW (Rec: 07/30/23 11:42 DCW [id number]) Hip Strength Hip Manual Muscle Testing Right Flexion (L2) 3 Fair Extension (S1) 4+ Good+ Abduction 3 Fair Adduction 3 Fair Left Flexion (L2) 4+ Good+ Extension (S1) 4+ Good+ Abduction 4+ Good+ Adduction 4+ Good+ Knee Strength Knee Manual Muscle Testing Right Flexion (S2) 5 Normal Extension (L3) 1 Trace Left Flexion (S2) 5 Normal Extension (L3) 5 Normal Ankle/Foot Strength Ankle and Foot Manual Muscle Testing Right Dorsiflexion (L4) 4+ Good+ Plantarflexion (S1) 4+ Good+ Left Dorsiflexion (L4) 4+ Good+ Plantarflexion (S1) 4+ Good+ PT-OP-O Vestibular Start: 06/24/23 12:49 Freq: Status: Active Protocol: Document 06/24/23 12:00 DCW (Rec: 06/24/23 12:49 DCW [id number]) Vestibular Assessment Auditory Tests [place] Test Within normal limits Rinne Test Negative Air Conduction Results Equal Visual Testing Smooth Pursuits Horizontal WNL Smooth Pursuits Vertical WNL Saccades Horizontal WNL Heave Test Positive Bilateral Thrust Head Positive Bilateral Spontaneous Nystagmus Negative Positional Testing [place]te[place]-Hallpike Negative Left,Negative Right Rolling Test Negative Left,Negative Right PT-OP-Q Treatments Start: 05/05/23 15:26 Freq: Status: Active Protocol: Document 10/12/23 13:49 AB (Rec: 10/12/23 16:15 AB [id number]) Therapeutic Exercises Supine Exercises hip and knee extension with band Side right Equipment Used level one blue band Reps/Minutes X16 Sidelying Exercises sidelying knee extension Sidelying Exercise Name AROM Side right Resistance level 3 band Reps/Minutes 15 X 2 Sitting Exercises dorsiflexion Sitting Exercise Name AROM and with bands Side right Resistance level one band Reps/Minutes X15 without X 15 with band seated hip adduction Sitting Exercise Name with ball Side bilateral Reps/Minutes 10 seconds X 5 seated hip abduction Equipment Used level 2 teal band Reps/Minutes one minute X 1 then 2X 10 Gait Training Gait Activity /s AD Description without device outdoors Level of Assistance CGA Comments Fwd, Bkwd, indoors, up down curbs, indoors retro stepping, side stepping and tandem in parallel bars PT-OP-R Modalities Start: 05/10/23 13:44 Freq: Status: Active Protocol: Document 07/09/23 10:15 AB (Rec: 07/09/23 11:36 AB [id number]) Electric Stimulation Electric Stimulation [place] Stimulation Body Location right quad Intensity 25 Ramp 0.5 Comments 10 on 30 off, performed quad sets, sidelying knee extension from ~90 deg flexion, LAQ AA as unable on initial trials PT-OP-T Assessment and Plan Start: 05/05/23 15:26 Freq: Status: Active Protocol: Document 10/12/23 13:49 AB (Rec: 10/12/23 16:15 AB [id number]) Physical Therapy Assessment Goals Three Impairment Pt currently demonstrating 0/5 MMT right quad Industrial Roof Plumber Goal (LTG) Pt to exhibit 2-/5 MMT or greater of right quad in order to improve ability to limit knee buckling. LTG Duration 10/28/23 - Improving Two Impairment Pt ambulates 174' during Two Minute Walk Test using FWW Usp Goal (LTG) Pt to exhibit ability to complete full 6MWT with no rest breaks using LRAD, ambulating >600' in order to demonstrate improve gait speed and activity tolerance LTG Duration 10/28/23 - Improving One Impairment Pt does not have an appropriate home exercise program Short Term Goal (STG) Pt to be independent and compliant with an appropriate HEP STG Duration 08/29/23 - improving Assessment Summary Assessment Unable to progress band for sidelying knee extension with band right LE. Lanette able to ascend and descend small incline, decline, small curb, and on off grass CGA without device, but requires verbal cues each trial for ascend with left descend with right LE on curbs/unlevel surfaces. Physical Therapy Plan Frequency and Duration Frequency of Treatment 2x/Week Plan of Care Start Date 07/30/23 Plan of Care End Date 10/28/23 Next Visit Focus/Plan Next Note Type Progress Note Next Visit Plan Continue functional RLE strengthening. SPC training POC: Balance Outdoor gait training with SPC , revisit step ups on scale, possibly stagger stance sit to stand
--- NOTE | 2023-10-14 11:52 | PT.OTN ---
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, right leg, subsequent encounter (10/14/23) Other specified postprocedural states (10/14/23) Physical Therapy Treatment Note PT-OP-A Visit Information Start: 05/05/23 15:26 Freq: Status: Active Protocol: Document 10/14/23 09:49 SW (Rec: 10/14/23 10:32 SW [id number]) Out-Patient Physical Therapy Visit Information Visit Information Visit Type Treatment Note Visit Note 12/13 Visit Start Time 09:45 Visit Stop Time 10:25 Visit Number 42 Number of CORNICE MAKER Visits 3 PT-OP-B Current Condition Start: 05/05/23 15:26 Freq: Status: Active Protocol: Document 05/05/23 13:50 DCW (Rec: 05/05/23 15:48 DCW [id number]) Current Condition History of Current Condition Onset Date 12/31/22 Current Complaints R LE weakness, falls, neuromuscular dysfunction History of Current Condition Pt is a 73 year old female presenting with a complex recent medical history. Pt was brought to ED on 12/31/22 by EMS for nausea, vomiting, and generalized weakness. Was found to have cerebellar bleed and was transferred to [facility]. 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 Pt was at [facility] for 5 1/2 weeks, and then transferred to a rehab facility in [place] for another two months. Pt reports that at [facility], she was up walking around fairly well, but then developed severe nerve pain in her right leg. Found to have a large hematoma in her right low back/hip which ended up compressing right LE nerves. This resulted in loss of motor function and sensory imput from right leg. Pt admits she was miserable waiting for the pain to stop. Due to motor dysfunction in her right leg, was having increased difficulty walking, and spent her time in rehab in a wheelchair. Leg weakness resulted in two fals, both of which yusef her right knee. Pt has recently been working with home health, and is now doing well enough to progress to out-patient PT. Has been walking at home with a FWW, just obtained a 4WW, but not comfortable with it yet. Reports she can get herself to the kitchen, and furniture surf using the countertop and cabinets, and is able to dress and perform pericare independently. Still requires assistance with showering. Has friend helping as caregiver. Treatment Goals Patient/Caregiver Goals Pt's stated goals are to learn how to properly use 4WW, get right LE moving better, and walk on her own. PT-OP-C Subjective Start: 05/05/23 15:26 Freq: Status: Active Protocol: Document 10/14/23 09:49 SW (Rec: 10/14/23 10:32 SW [id number]) OP-PT Subjective Patient Comments Patient Comments Pt reports did a lot of work in garden, feels some stinging in quad mm, maybe did a little too much. Doing a lot of cooking. Pt reports nerve pain back recently, feels some relief with massaging quad. PT-OP-E Functional Tests Start: 05/05/23 15:26 Freq: Status: Active Protocol: Document 07/30/23 11:15 DCW (Rec: 07/30/23 11:42 DCW [id number]) Functional Tests 6 Minute Walk Test Distance 470' Device Used SPC Comments 1.30 ft/sec 30 Second Sit to Stand Test Score x10 repetitions Comments minimal UE use PT-OP-G Mobility & Gait Start: 05/05/23 15:26 Freq: Status: Active Protocol: Document 07/30/23 11:15 DCW (Rec: 07/30/23 11:42 DCW [id number]) OP Gait Assessment Gait Gait Assistance Required: Standby Assistance Distance (Feet) 470 Assistive Devices Assistive Device Gait Belt,Straight Cane Comments Gait Comments Pt uses momentum to advance right leg during swing phase due to absent quad control. Good foot clearance. PT-OP-H Neuro Start: 05/05/23 15:26 Freq: Status: Active Protocol: Document 07/30/23 11:15 DCW (Rec: 07/30/23 11:42 DCW [id number]) Sensation Evaluation Gross Sensation Gross Sensation Right LE Impaired Sensation Description Numbness,Tingling PT-OP-M Strength Start: 05/05/23 15:26 Freq: Status: Active Protocol: Document 07/30/23 11:15 DCW (Rec: 07/30/23 11:42 DCW [id number]) Hip Strength Hip Manual Muscle Testing Right Flexion (L2) 3 Fair Extension (S1) 4+ Good+ Abduction 3 Fair Adduction 3 Fair Left Flexion (L2) 4+ Good+ Extension (S1) 4+ Good+ Abduction 4+ Good+ Adduction 4+ Good+ Knee Strength Knee Manual Muscle Testing Right Flexion (S2) 5 Normal Extension (L3) 1 Trace Left Flexion (S2) 5 Normal Extension (L3) 5 Normal Ankle/Foot Strength Ankle and Foot Manual Muscle Testing Right Dorsiflexion (L4) 4+ Good+ Plantarflexion (S1) 4+ Good+ Left Dorsiflexion (L4) 4+ Good+ Plantarflexion (S1) 4+ Good+ PT-OP-O Vestibular Start: 06/24/23 12:49 Freq: Status: Active Protocol: Document 06/24/23 12:00 DCW (Rec: 06/24/23 12:49 DCW [id number]) Vestibular Assessment Auditory Tests Zurita Test Within normal limits Rinne Test Negative Air Conduction Results Equal Visual Testing Smooth Pursuits Horizontal WNL Smooth Pursuits Vertical WNL Saccades Horizontal WNL Heave Test Positive Bilateral Thrust Head Positive Bilateral Spontaneous Nystagmus Negative Positional Testing Ortega-Hallpike Negative Left,Negative Right Rolling Test Negative Left,Negative Right PT-OP-Q Treatments Start: 05/05/23 15:26 Freq: Status: Active Protocol: Document 10/14/23 09:49 SW (Rec: 10/14/23 10:32 SW [id number]) Cardio Equipment Recumbent Elliptical (Biodex) Duration (Minutes) 6 Resistance 8 Seat Position 8 Other LEs only Therapeutic Exercises Sidelying Exercises sidelying knee extension Sidelying Exercise Name AROM Side right Resistance Therapist resist>AROM Reps/Minutes 15 X 2 Comments trialed therapist resist, pt compensated with hip flexion Sitting Exercises dorsiflexion Sitting Exercise Name AROM and with bands Side right Resistance level one band Reps/Minutes X15 without X 15 with band Standing Exercises step up Standing Exercise Name step up Side right Equipment Used 4 step Reps/Minutes x8 Comments quick to fatigue Gait Training Gait Activity Cane Description Outdoor ambulation Device Used SPC Level of Assistance CGA Surface sidewalk/gravel Treatment Focus balance, gait training with SPC on outdoor surfaces Neuro Re-Education Treatment Balance Activities Hurdles Details CGA, fwd/lateral Reps/Duration 10 feet X 6 Comments Verbal and visual cues for reciprocal pattern PT-OP-R Modalities Start: 05/10/23 13:44 Freq: Status: Active Protocol: Document 07/09/23 10:15 AB (Rec: 07/09/23 11:36 AB [id number]) Electric Stimulation Electric Stimulation Bahamian Stimulation Body Location right quad Intensity 25 Ramp 0.5 Comments 10 on 30 off, performed quad sets, sidelying knee extension from ~90 deg flexion, LAQ AA as unable on initial trials PT-OP-T Assessment and Plan Start: 05/05/23 15:26 Freq: Status: Active Protocol: Document 10/14/23 09:49 SW (Rec: 10/14/23 10:32 SW [id number]) Physical Therapy Assessment Goals Three Impairment Pt currently demonstrating 0/5 MMT right quad Assistant Media Planner Goal (LTG) Pt to exhibit 2-/5 MMT or greater of right quad in order to improve ability to limit knee buckling. LTG Duration 10/28/23 - Improving Two Impairment Pt ambulates 174' during Two Minute Walk Test using FWW Assistant Media Planner Goal (LTG) Pt to exhibit ability to complete full 6MWT with no rest breaks using LRAD, ambulating >600' in order to demonstrate improve gait speed and activity tolerance LTG Duration 10/28/23 - Improving One Impairment Pt does not have an appropriate home exercise program Short Term Goal (STG) Pt to be independent and compliant with an appropriate HEP STG Duration 08/29/23 - improving Assessment Summary Assessment Continued sidelying knee extension for progress toward pt goal of mm strength, pt able to actively move through range in a gravity eliminated position, though unable to initiate movement with minimal therapist applied resistance, compensating with hip flexion vs knee extension. Continued gait training this session, ambulated outdoors on variable surfaces with SPC, CGA with gait belt donned, pt required multiple seated rest breaks d/ t pt fatigue in RLE. Physical Therapy Plan Frequency and Duration Frequency of Treatment 2x/Week Plan of Care Start Date 07/30/23 Plan of Care End Date 10/28/23 Therapeutic Interventions Therapeutic Interventions Balance Training,Coordination Training,Gait Training,Home Exercise Program,Joint Mobilizations,Manual Therapy, Neuromuscular Re-education, Patient/Caregiver Education, Self-Care/Home Management, Sensory Integration,Soft Tissue Mobilization, Therapeutic Activities, Therapeutic Exercises Next Visit Focus/Plan Next Note Type Progress Note Next Visit Plan Continue functional RLE strengthening. SPC training POC: Balance Outdoor gait training with SPC , revisit step ups on scale, possibly stagger stance sit to stand
--- NOTE | 2023-10-14 17:40 | PT.OPPN ---
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, right leg, subsequent encounter (10/14/23) Other specified postprocedural states (10/14/23) Physical Therapy Progress Note PT-OP-A Visit Information Start: 05/05/23 15:26 Freq: Status: Active Protocol: Document 10/14/23 09:49 SW (Rec: 10/14/23 10:32 SW [id number]) Out-Patient Physical Therapy Visit Information Visit Information Visit Type Treatment Note Visit Note 12/13 Visit Start Time 09:45 Visit Stop Time 10:25 Visit Number 42 Number of COMMERCIAL REVIEW APPRAISER Visits 3 PT-OP-B Current Condition Start: 05/05/23 15:26 Freq: Status: Active Protocol: Document 05/05/23 13:50 DCW (Rec: 05/05/23 15:48 DCW [id number]) Current Condition History of Current Condition Onset Date 12/31/22 Current Complaints R LE weakness, falls, neuromuscular dysfunction History of Current Condition Pt is a 73 year old female presenting with a complex recent medical history. Pt was brought to ED on 12/31/22 by EMS for nausea, vomiting, and generalized weakness. Was found to have cerebellar bleed and was transferred to [facility]. 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 Pt was at [facility] for 5 1/2 weeks, and then transferred to a rehab facility in [place] for another two months. Pt reports that at [facility], she was up walking around fairly well, but then developed severe nerve pain in her right leg. Found to have a large hematoma in her right low back/hip which ended up compressing right LE nerves. This resulted in loss of motor function and sensory imput from right leg. Pt admits she was miserable waiting for the pain to stop. Due to motor dysfunction in her right leg, was having increased difficulty walking, and spent her time in rehab in a wheelchair. Leg weakness resulted in two fals, both of which yusef her right knee. Pt has recently been working with home health, and is now doing well enough to progress to out-patient PT. Has been walking at home with a FWW, just obtained a 4WW, but not comfortable with it yet. Reports she can get herself to the kitchen, and furniture surf using the countertop and cabinets, and is able to dress and perform pericare independently. Still requires assistance with showering. Has friend helping as caregiver. Treatment Goals Patient/Caregiver Goals Pt's stated goals are to learn how to properly use 4WW, get right LE moving better, and walk on her own. PT-OP-C Subjective Start: 05/05/23 15:26 Freq: Status: Active Protocol: Document 10/14/23 09:49 SW (Rec: 10/14/23 10:32 SW [id number]) OP-PT Subjective Patient Comments Patient Comments Pt reports did a lot of work in garden, feels some stinging in quad mm, maybe did a little too much. Doing a lot of cooking. Pt reports nerve pain back recently, feels some relief with massaging quad. PT-OP-E Functional Tests Start: 05/05/23 15:26 Freq: Status: Active Protocol: Document 07/30/23 11:15 DCW (Rec: 07/30/23 11:42 DCW [id number]) Functional Tests 6 Minute Walk Test Distance 470' Device Used SPC Comments 1.30 ft/sec 30 Second Sit to Stand Test Score x10 repetitions Comments minimal UE use PT-OP-G Mobility & Gait Start: 05/05/23 15:26 Freq: Status: Active Protocol: Document 07/30/23 11:15 DCW (Rec: 07/30/23 11:42 DCW [id number]) OP Gait Assessment Gait Gait Assistance Required: Standby Assistance Distance (Feet) 470 Assistive Devices Assistive Device Gait Belt,Straight Cane Comments Gait Comments Pt uses momentum to advance right leg during swing phase due to absent quad control. Good foot clearance. PT-OP-H Neuro Start: 05/05/23 15:26 Freq: Status: Active Protocol: Document 07/30/23 11:15 DCW (Rec: 07/30/23 11:42 DCW [id number]) Sensation Evaluation Gross Sensation Gross Sensation Right LE Impaired Sensation Description Numbness,Tingling PT-OP-M Strength Start: 05/05/23 15:26 Freq: Status: Active Protocol: Document 07/30/23 11:15 DCW (Rec: 07/30/23 11:42 DCW [id number]) Hip Strength Hip Manual Muscle Testing Right Flexion (L2) 3 Fair Extension (S1) 4+ Good+ Abduction 3 Fair Adduction 3 Fair Left Flexion (L2) 4+ Good+ Extension (S1) 4+ Good+ Abduction 4+ Good+ Adduction 4+ Good+ Knee Strength Knee Manual Muscle Testing Right Flexion (S2) 5 Normal Extension (L3) 1 Trace Left Flexion (S2) 5 Normal Extension (L3) 5 Normal Ankle/Foot Strength Ankle and Foot Manual Muscle Testing Right Dorsiflexion (L4) 4+ Good+ Plantarflexion (S1) 4+ Good+ Left Dorsiflexion (L4) 4+ Good+ Plantarflexion (S1) 4+ Good+ PT-OP-O Vestibular Start: 06/24/23 12:49 Freq: Status: Active Protocol: Document 06/24/23 12:00 DCW (Rec: 06/24/23 12:49 DCW [id number]) Vestibular Assessment Auditory Tests Zurita Test Within normal limits Rinne Test Negative Air Conduction Results Equal Visual Testing Smooth Pursuits Horizontal WNL Smooth Pursuits Vertical WNL Saccades Horizontal WNL Heave Test Positive Bilateral Thrust Head Positive Bilateral Spontaneous Nystagmus Negative Positional Testing Vancleave-Hallpike Negative Left,Negative Right Rolling Test Negative Left,Negative Right PT-OP-T Assessment and Plan Start: 05/05/23 15:26 Freq: Status: Active Protocol: Document 10/14/23 17:37 DCW (Rec: 10/14/23 17:40 DCW [id number]) Physical Therapy Assessment Goals Three Impairment Pt currently demonstrating 0/5 MMT right quad Snf Goal (LTG) Pt to exhibit 2-/5 MMT or greater of right quad in order to improve ability to limit knee buckling. LTG Duration 10/28/23 - Improving Two Impairment Pt ambulates 174' during Two Minute Walk Test using FWW Snf Goal (LTG) Pt to exhibit ability to complete full 6MWT with no rest breaks using LRAD, ambulating >600' in order to demonstrate improve gait speed and activity tolerance LTG Duration 10/28/23 - Improving One Impairment Pt does not have an appropriate home exercise program Short Term Goal (STG) Pt to be independent and compliant with an appropriate HEP STG Duration 08/29/23 - improving Assessment Summary Assessment Pt progressing with improved quad control, recently began to exhibit ability to kick ball with right leg. Ambulating over uneven surfaces showing good improvement. Physical Therapy Plan Frequency and Duration Frequency of Treatment 2x/Week Plan of Care Start Date 07/30/23 Plan of Care End Date 10/28/23 Next Visit Focus/Plan Next Note Type Treatment Note Next Visit Plan Continue functional RLE strengthening. SPC training POC: Balance Outdoor gait training with SPC , revisit step ups on scale, possibly stagger stance sit to stand
--- NOTE | 2023-10-19 12:55 | PT.OTN ---
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, right leg, subsequent encounter (10/19/23) Other specified postprocedural states (10/19/23) Physical Therapy Treatment Note PT-OP-A Visit Information Start: 05/05/23 15:26 Freq: Status: Active Protocol: Document 10/19/23 11:46 SW (Rec: 10/19/23 12:55 SW [id number]) Out-Patient Physical Therapy Visit Information Visit Information Visit Type Treatment Note Visit Note 01/12 Visit Start Time 11:18 Visit Stop Time 12:57 Visit Number 39 Number of DIGESTER CAPPER Visits 4 PT-OP-B Current Condition Start: 05/05/23 15:26 Freq: Status: Active Protocol: Document 05/05/23 13:50 DCW (Rec: 05/05/23 15:48 DCW [id number]) Current Condition History of Current Condition Onset Date 12/31/22 Current Complaints R LE weakness, falls, neuromuscular dysfunction History of Current Condition Pt is a 73 year old female presenting with a complex recent medical history. Pt was brought to ED on 12/31/22 by EMS for nausea, vomiting, and generalized weakness. Was found to have cerebellar bleed and was transferred to [facility]. 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 Pt was at [facility] for 5 1/2 weeks, and then transferred to a rehab facility in [place] for another two months. Pt reports that at [facility], she was up walking around fairly well, but then developed severe nerve pain in her right leg. Found to have a large hematoma in her right low back/hip which ended up compressing right LE nerves. This resulted in loss of motor function and sensory imput from right leg. Pt admits she was miserable waiting for the pain to stop. Due to motor dysfunction in her right leg, was having increased difficulty walking, and spent her time in rehab in a wheelchair. Leg weakness resulted in two fals, both of which yusef her right knee. Pt has recently been working with home health, and is now doing well enough to progress to out-patient PT. Has been walking at home with a FWW, just obtained a 4WW, but not comfortable with it yet. Reports she can get herself to the kitchen, and furniture surf using the countertop and cabinets, and is able to dress and perform pericare independently. Still requires assistance with showering. Has friend helping as caregiver. Treatment Goals Patient/Caregiver Goals Pt's stated goals are to learn how to properly use 4WW, get right LE moving better, and walk on her own. PT-OP-C Subjective Start: 05/05/23 15:26 Freq: Status: Active Protocol: Document 10/19/23 11:46 SW (Rec: 10/19/23 12:55 SW [id number]) OP-PT Subjective Patient Comments Patient Comments Pt reports focusing on gait mechanics, feels pigeon toed when foot is in neutral alignment. Pt reports quad pain present when muscle is worked and tired, though feels better when resting. PT-OP-E Functional Tests Start: 05/05/23 15:26 Freq: Status: Active Protocol: Document 07/30/23 11:15 DCW (Rec: 07/30/23 11:42 DCW [id number]) Functional Tests 6 Minute Walk Test Distance 470' Device Used SPC Comments 1.30 ft/sec 30 Second Sit to Stand Test Score x10 repetitions Comments minimal UE use PT-OP-G Mobility & Gait Start: 05/05/23 15:26 Freq: Status: Active Protocol: Document 07/30/23 11:15 DCW (Rec: 07/30/23 11:42 DCW [id number]) OP Gait Assessment Gait Gait Assistance Required: Standby Assistance Distance (Feet) 470 Assistive Devices Assistive Device Gait Belt,Straight Cane Comments Gait Comments Pt uses momentum to advance right leg during swing phase due to absent quad control. Good foot clearance. PT-OP-H Neuro Start: 05/05/23 15:26 Freq: Status: Active Protocol: Document 07/30/23 11:15 DCW (Rec: 07/30/23 11:42 DCW [id number]) Sensation Evaluation Gross Sensation Gross Sensation Right LE Impaired Sensation Description Numbness,Tingling PT-OP-M Strength Start: 05/05/23 15:26 Freq: Status: Active Protocol: Document 07/30/23 11:15 DCW (Rec: 07/30/23 11:42 DCW [id number]) Hip Strength Hip Manual Muscle Testing Right Flexion (L2) 3 Fair Extension (S1) 4+ Good+ Abduction 3 Fair Adduction 3 Fair Left Flexion (L2) 4+ Good+ Extension (S1) 4+ Good+ Abduction 4+ Good+ Adduction 4+ Good+ Knee Strength Knee Manual Muscle Testing Right Flexion (S2) 5 Normal Extension (L3) 1 Trace Left Flexion (S2) 5 Normal Extension (L3) 5 Normal Ankle/Foot Strength Ankle and Foot Manual Muscle Testing Right Dorsiflexion (L4) 4+ Good+ Plantarflexion (S1) 4+ Good+ Left Dorsiflexion (L4) 4+ Good+ Plantarflexion (S1) 4+ Good+ PT-OP-O Vestibular Start: 06/24/23 12:49 Freq: Status: Active Protocol: Document 06/24/23 12:00 DCW (Rec: 06/24/23 12:49 DCW [id number]) Vestibular Assessment Auditory Tests Zurita Test Within normal limits Rinne Test Negative Air Conduction Results Equal Visual Testing Smooth Pursuits Horizontal WNL Smooth Pursuits Vertical WNL Saccades Horizontal WNL Heave Test Positive Bilateral Thrust Head Positive Bilateral Spontaneous Nystagmus Negative Positional Testing Ortega-Hallpike Negative Left,Negative Right Rolling Test Negative Left,Negative Right PT-OP-Q Treatments Start: 05/05/23 15:26 Freq: Status: Active Protocol: Document 10/19/23 11:46 SW (Rec: 10/19/23 12:55 SW [id number]) Gym Equipment Shuttle Balance Red Details WBOS, NBOS, Staggered Reps/Duration 8 min Comments w/head turns Therapeutic Exercises Supine Exercises TKE Supine Exercise Name Trialed Side right Resistance AROM Comments pt unable to initiate against gravity Sidelying Exercises sidelying knee extension Sidelying Exercise Name AROM Side right Resistance Therapist resist>AROM Reps/Minutes 15 X 2 Comments trialed therapist resist, pt compensated with hip flexion Standing Exercises step up Standing Exercise Name step up Side right Equipment Used 4 step Reps/Minutes 2x10 Comments quick to fatigue TKE Standing Exercise Name TKE Side right Resistance AROM Gait Training Gait Activity Cane Description Outdoor ambulation Device Used SPC Level of Assistance CGA Surface sidewalk/gravel/stairs/grass Treatment Focus balance, gait training with SPC on outdoor surfaces PT-OP-R Modalities Start: 05/10/23 13:44 Freq: Status: Active Protocol: Document 07/09/23 10:15 AB (Rec: 07/09/23 11:36 AB [id number]) Electric Stimulation Electric Stimulation [place] Stimulation Body Location right quad Intensity 25 Ramp 0.5 Comments 10 on 30 off, performed quad sets, sidelying knee extension from ~90 deg flexion, LAQ AA as unable on initial trials PT-OP-T Assessment and Plan Start: 05/05/23 15:26 Freq: Status: Active Protocol: Document 10/19/23 11:46 SW (Rec: 10/19/23 12:55 SW [id number]) Physical Therapy Assessment Goals Three Impairment Pt currently demonstrating 0/5 MMT right quad Instrument Adjuster Goal (LTG) Pt to exhibit 2-/5 MMT or greater of right quad in order to improve ability to limit knee buckling. LTG Duration 10/28/23 - Improving Two Impairment Pt ambulates 174' during Two Minute Walk Test using FWW Instrument Adjuster Goal (LTG) Pt to exhibit ability to complete full 6MWT with no rest breaks using LRAD, ambulating >600' in order to demonstrate improve gait speed and activity tolerance LTG Duration 10/28/23 - Improving One Impairment Pt does not have an appropriate home exercise program Short Term Goal (STG) Pt to be independent and compliant with an appropriate HEP STG Duration 08/29/23 - improving Assessment Summary Assessment Continued gravity eliminated R knee extension strength, trialed against gravity AROM, unable to lift against gravity , initiated standing TKE with ~25 degrees hip flexion, tolerated well, pt able to feel quad activation. Encouraged pt to continue consistant seated AROM LAQ at home for continued strength gains. Continued outdoor ambulation for balance challenge, gait training with SPC, and strengthening, cued pt for neutral foot for RLE during gait to facilitate knee flexion/ext mechanics. Physical Therapy Plan Frequency and Duration Frequency of Treatment 2x/Week Plan of Care Start Date 07/30/23 Plan of Care End Date 10/28/23 Therapeutic Interventions Therapeutic Interventions Balance Training,Coordination Training,Gait Training,Home Exercise Program,Joint Mobilizations,Manual Therapy, Neuromuscular Re-education, Patient/Caregiver Education, Self-Care/Home Management, Sensory Integration,Soft Tissue Mobilization, Therapeutic Activities, Therapeutic Exercises Next Visit Focus/Plan Next Note Type Treatment Note Next Visit Plan Continue functional RLE strengthening. SPC training POC: Balance Outdoor gait training with SPC , revisit step ups on scale, possibly stagger stance sit to stand
--- NOTE | 2023-10-22 10:31 | PT.OTN ---
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, right leg, subsequent encounter (10/22/23) Other specified postprocedural states (10/22/23) Physical Therapy Treatment Note PT-OP-A Visit Information Start: 05/05/23 15:26 Freq: Status: Active Protocol: Document 10/22/23 09:47 DCW (Rec: 10/22/23 10:30 DCW [id number]) Out-Patient Physical Therapy Visit Information Visit Information Visit Type Treatment Note Visit Note 05/15 Visit Start Time 09:47 Visit Stop Time 10:30 Visit Number 44 Number of DIESEL MOTOR MECHANIC Visits 0 Evaluation Information Evaluation Date 05/05/23 PT-OP-B Current Condition Start: 05/05/23 15:26 Freq: Status: Active Protocol: Document 05/05/23 13:50 DCW (Rec: 05/05/23 15:48 DCW [id number]) Current Condition History of Current Condition Onset Date 12/31/22 Current Complaints R LE weakness, falls, neuromuscular dysfunction History of Current Condition Pt is a 73 year old female presenting with a complex recent medical history. Pt was brought to ED on 12/31/22 by EMS for nausea, vomiting, and generalized weakness. Was found to have cerebellar bleed and was transferred to [facility]. 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 Pt was at [facility] for 5 1/2 weeks, and then transferred to a rehab facility in [place] for another two months. Pt reports that at [facility], she was up walking around fairly well, but then developed severe nerve pain in her right leg. Found to have a large hematoma in her right low back/hip which ended up compressing right LE nerves. This resulted in loss of motor function and sensory imput from right leg. Pt admits she was miserable waiting for the pain to stop. Due to motor dysfunction in her right leg, was having increased difficulty walking, and spent her time in rehab in a wheelchair. Leg weakness resulted in two fals, both of which yusef her right knee. Pt has recently been working with home health, and is now doing well enough to progress to out-patient PT. Has been walking at home with a FWW, just obtained a 4WW, but not comfortable with it yet. Reports she can get herself to the kitchen, and furniture surf using the countertop and cabinets, and is able to dress and perform pericare independently. Still requires assistance with showering. Has friend helping as caregiver. Treatment Goals Patient/Caregiver Goals Pt's stated goals are to learn how to properly use 4WW, get right LE moving better, and walk on her own. PT-OP-C Subjective Start: 05/05/23 15:26 Freq: Status: Active Protocol: Document 10/22/23 09:47 DCW (Rec: 10/22/23 10:30 DCW [id number]) OP-PT Subjective Patient Comments Patient Comments Has practiced some driving, but notes that her dizziness has returned. PT-OP-E Functional Tests Start: 05/05/23 15:26 Freq: Status: Active Protocol: Document 07/30/23 11:15 DCW (Rec: 07/30/23 11:42 DCW [id number]) Functional Tests 6 Minute Walk Test Distance 470' Device Used SPC Comments 1.30 ft/sec 30 Second Sit to Stand Test Score x10 repetitions Comments minimal UE use PT-OP-G Mobility & Gait Start: 05/05/23 15:26 Freq: Status: Active Protocol: Document 07/30/23 11:15 DCW (Rec: 07/30/23 11:42 DCW [id number]) OP Gait Assessment Gait Gait Assistance Required: Standby Assistance Distance (Feet) 470 Assistive Devices Assistive Device Gait Belt,Straight Cane Comments Gait Comments Pt uses momentum to advance right leg during swing phase due to absent quad control. Good foot clearance. PT-OP-H Neuro Start: 05/05/23 15:26 Freq: Status: Active Protocol: Document 07/30/23 11:15 DCW (Rec: 07/30/23 11:42 DCW [id number]) Sensation Evaluation Gross Sensation Gross Sensation Right LE Impaired Sensation Description Numbness,Tingling PT-OP-M Strength Start: 05/05/23 15:26 Freq: Status: Active Protocol: Document 07/30/23 11:15 DCW (Rec: 07/30/23 11:42 DCW [id number]) Hip Strength Hip Manual Muscle Testing Right Flexion (L2) 3 Fair Extension (S1) 4+ Good+ Abduction 3 Fair Adduction 3 Fair Left Flexion (L2) 4+ Good+ Extension (S1) 4+ Good+ Abduction 4+ Good+ Adduction 4+ Good+ Knee Strength Knee Manual Muscle Testing Right Flexion (S2) 5 Normal Extension (L3) 1 Trace Left Flexion (S2) 5 Normal Extension (L3) 5 Normal Ankle/Foot Strength Ankle and Foot Manual Muscle Testing Right Dorsiflexion (L4) 4+ Good+ Plantarflexion (S1) 4+ Good+ Left Dorsiflexion (L4) 4+ Good+ Plantarflexion (S1) 4+ Good+ PT-OP-O Vestibular Start: 06/24/23 12:49 Freq: Status: Active Protocol: Document 06/24/23 12:00 DCW (Rec: 06/24/23 12:49 DCW [id number]) Vestibular Assessment Auditory Tests Zurita Test Within normal limits Rinne Test Negative Air Conduction Results Equal Visual Testing Smooth Pursuits Horizontal WNL Smooth Pursuits Vertical WNL Saccades Horizontal WNL Heave Test Positive Bilateral Thrust Head Positive Bilateral Spontaneous Nystagmus Negative Positional Testing Ortega-Hallpike Negative Left,Negative Right Rolling Test Negative Left,Negative Right PT-OP-Q Treatments Start: 05/05/23 15:26 Freq: Status: Active Protocol: Document 10/22/23 09:47 DCW (Rec: 10/22/23 10:30 DCW [id number]) Cardio Equipment Recumbent Elliptical ([employer]) Duration (Minutes) 7 Resistance 8 Seat Position 8 Other LEs only Gait Training Gait Activity Cane Description Indoor ambulation Device Used SPC Level of Assistance CGA Surface Loops around clinic Treatment Focus balance, gait training with SPC on outdoor surfaces Comments With and without SPC Neuro Re-Education Treatment Vestibular Rehabilitation Corrective Saccades Details Eyes, then head Distance From Target Arm's length Speed as toelrated Position Seated X2 Viewing Details Target and head moving in opposite direction Distance From Target Arm's length Speed as tolerated Position Seated X1 Viewing Details Static target, head turns Distance From Target Arm's length Speed as tolerated Position Seated VOR Retraining Details Target and head move together Distance From Target Arm's length Speed as tolerated Position Seated PT-OP-R Modalities Start: 05/10/23 13:44 Freq: Status: Active Protocol: Document 07/09/23 10:15 AB (Rec: 07/09/23 11:36 AB [id number]) Electric Stimulation Electric Stimulation [place] Stimulation Body Location right quad Intensity 25 Ramp 0.5 Comments 10 on 30 off, performed quad sets, sidelying knee extension from ~90 deg flexion, LAQ AA as unable on initial trials PT-OP-T Assessment and Plan Start: 05/05/23 15:26 Freq: Status: Active Protocol: Document 10/22/23 09:47 DCW (Rec: 10/22/23 10:30 DCW [id number]) Physical Therapy Assessment Impairments Impairments Balance,Functional Activities, Functional Mobility,Pain,ROM, Sensation,Soft Tissue Mobility ,Strength,Tone,Transfers Goals Three Impairment Pt currently demonstrating 0/5 MMT right quad Usp Goal (LTG) Pt to exhibit 2-/5 MMT or greater of right quad in order to improve ability to limit knee buckling. LTG Duration 10/28/23 - Improving Two Impairment Pt ambulates 174' during Two Minute Walk Test using FWW Jde Developer Goal (LTG) Pt to exhibit ability to complete full 6MWT with no rest breaks using LRAD, ambulating >600' in order to demonstrate improve gait speed and activity tolerance LTG Duration 10/28/23 - Improving One Impairment Pt does not have an appropriate home exercise program Short Term Goal (STG) Pt to be independent and compliant with an appropriate HEP STG Duration 08/29/23 - improving Assessment Summary Assessment Due to return of symptoms of dizziness, positional testing was reexamined. Continues to be negative. As symptoms appear to occur with visual scanning, which could lead to increased falls risk and instability, added VOR, X1/X2 exercises to HEP. Physical Therapy Plan Frequency and Duration Frequency of Treatment 2x/Week Plan of Care Start Date 07/30/23 Plan of Care End Date 10/28/23 Therapeutic Interventions Therapeutic Interventions Balance Training,Coordination Training,Gait Training,Home Exercise Program,Joint Mobilizations,Manual Therapy, Neuromuscular Re-education, Patient/Caregiver Education, Self-Care/Home Management, Sensory Integration,Soft Tissue Mobilization, Therapeutic Activities, Therapeutic Exercises Next Visit Focus/Plan Next Note Type Treatment Note Next Visit Plan Continue functional RLE strengthening. SPC training POC: Balance Outdoor gait training with SPC , revisit step ups on scale, possibly stagger stance sit to stand
--- NOTE | 2023-10-25 12:02 | PT.OTN ---
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, right leg, subsequent encounter (10/25/23) Other specified postprocedural states (10/25/23) Physical Therapy Treatment Note PT-OP-A Visit Information Start: 05/05/23 15:26 Freq: Status: Active Protocol: Document 10/25/23 11:15 DCW (Rec: 10/25/23 12:02 DCW [id number]) Out-Patient Physical Therapy Visit Information Visit Information Visit Type Progress Note Visit Note 05/15 Visit Start Time 11:15 Visit Stop Time 12:00 Visit Number 45 Number of EAP CLINICIAN Visits 0 Evaluation Information Evaluation Date 05/05/23 PT-OP-B Current Condition Start: 05/05/23 15:26 Freq: Status: Active Protocol: Document 05/05/23 13:50 DCW (Rec: 05/05/23 15:48 DCW [id number]) Current Condition History of Current Condition Onset Date 12/31/22 Current Complaints R LE weakness, falls, neuromuscular dysfunction History of Current Condition Pt is a 73 year old female presenting with a complex recent medical history. Pt was brought to ED on 12/31/22 by EMS for nausea, vomiting, and generalized weakness. Was found to have cerebellar bleed and was transferred to [facility]. 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 Pt was at [facility] for 5 1/2 weeks, and then transferred to a rehab facility in [place] for another two months. Pt reports that at [facility], she was up walking around fairly well, but then developed severe nerve pain in her right leg. Found to have a large hematoma in her right low back/hip which ended up compressing right LE nerves. This resulted in loss of motor function and sensory imput from right leg. Pt admits she was miserable waiting for the pain to stop. Due to motor dysfunction in her right leg, was having increased difficulty walking, and spent her time in rehab in a wheelchair. Leg weakness resulted in two fals, both of which yusef her right knee. Pt has recently been working with home health, and is now doing well enough to progress to out-patient PT. Has been walking at home with a FWW, just obtained a 4WW, but not comfortable with it yet. Reports she can get herself to the kitchen, and furniture surf using the countertop and cabinets, and is able to dress and perform pericare independently. Still requires assistance with showering. Has friend helping as caregiver. Treatment Goals Patient/Caregiver Goals Pt's stated goals are to learn how to properly use 4WW, get right LE moving better, and walk on her own. PT-OP-C Subjective Start: 05/05/23 15:26 Freq: Status: Active Protocol: Document 10/25/23 11:15 DCW (Rec: 10/25/23 12:02 DCW [id number]) OP-PT Subjective Patient Comments Patient Comments Pt able to drive herself today . Feeling good about overall progression. PT-OP-E Functional Tests Start: 05/05/23 15:26 Freq: Status: Active Protocol: Document 10/25/23 11:15 DCW (Rec: 10/25/23 11:36 DCW [id number]) Functional Tests 6 Minute Walk Test Distance 628' Device Used SPC Comments 1.74 ft/sec 30 Second Sit to Stand Test Score x10 repetitions Comments minimal UE use PT-OP-G Mobility & Gait Start: 05/05/23 15:26 Freq: Status: Active Protocol: Document 10/25/23 11:15 DCW (Rec: 10/25/23 11:36 DCW [id number]) OP Gait Assessment Gait Gait Assistance Required: Standby Assistance Distance (Feet) 628 Assistive Devices Assistive Device Gait Belt,Straight Cane Comments Gait Comments Improving motor control of right quad during gait PT-OP-H Neuro Start: 05/05/23 15:26 Freq: Status: Active Protocol: Document 10/25/23 11:15 DCW (Rec: 10/25/23 11:36 DCW [id number]) Sensation Evaluation Gross Sensation Gross Sensation Right LE Impaired Sensation Description Numbness,Tingling PT-OP-M Strength Start: 05/05/23 15:26 Freq: Status: Active Protocol: Document 10/25/23 11:15 DCW (Rec: 10/25/23 11:36 DCW [id number]) Hip Strength Hip Manual Muscle Testing Right Flexion (L2) 3 Fair Extension (S1) 4+ Good+ Abduction 4- Good- Adduction 4- Good- Left Flexion (L2) 4+ Good+ Extension (S1) 4+ Good+ Abduction 4+ Good+ Adduction 4+ Good+ Knee Strength Knee Manual Muscle Testing Right Flexion (S2) 5 Normal Extension (L3) 2 Poor Left Flexion (S2) 5 Normal Extension (L3) 5 Normal Ankle/Foot Strength Ankle and Foot Manual Muscle Testing Right Dorsiflexion (L4) 4+ Good+ Plantarflexion (S1) 4+ Good+ Left Dorsiflexion (L4) 4+ Good+ Plantarflexion (S1) 4+ Good+ PT-OP-O Vestibular Start: 06/24/23 12:49 Freq: Status: Active Protocol: Document 06/24/23 12:00 DCW (Rec: 06/24/23 12:49 DCW [id number]) Vestibular Assessment Auditory Tests [place] Test Within normal limits Rinne Test Negative Air Conduction Results Equal Visual Testing Smooth Pursuits Horizontal WNL Smooth Pursuits Vertical WNL Saccades Horizontal WNL Heave Test Positive Bilateral Thrust Head Positive Bilateral Spontaneous Nystagmus Negative Positional Testing [place]-Hallpike Negative Left,Negative Right Rolling Test Negative Left,Negative Right PT-OP-Q Treatments Start: 05/05/23 15:26 Freq: Status: Active Protocol: Document 10/25/23 11:15 DCW (Rec: 10/25/23 12:02 DCW [id number]) Therapeutic Exercises Sitting Exercises LAQ Sitting Exercise Name kicking small ball, blue Side right Resistance 4# aw Standing Exercises step up Standing Exercise Name step up, step-down Side right Equipment Used 6->4 step Reps/Minutes 2x10 Comments quick to fatigue PT-OP-R Modalities Start: 05/10/23 13:44 Freq: Status: Active Protocol: Document 07/09/23 10:15 AB (Rec: 07/09/23 11:36 AB [id number]) Electric Stimulation Electric Stimulation Liberian Stimulation Body Location right quad Intensity 25 Ramp 0.5 Comments 10 on 30 off, performed quad sets, sidelying knee extension from ~90 deg flexion, LAQ AA as unable on initial trials PT-OP-T Assessment and Plan Start: 05/05/23 15:26 Freq: Status: Active Protocol: Document 10/25/23 11:15 DCW (Rec: 10/25/23 12:02 DCW [id number]) Physical Therapy Assessment Impairments Impairments Balance,Functional Activities, Functional Mobility,Pain,ROM, Sensation,Soft Tissue Mobility ,Strength,Tone,Transfers Goals Three Impairment Pt currently demonstrating 0/5 MMT right quad Short Term Goal (STG) Pt to exhibit 2-/5 MMT or greater of right quad in order to improve ability to limit knee buckling. STG Duration Met Roller Leveler Goal (LTG) Pt to exhibit 3/5 MMT or greater of right quad in order to improve ability to limit knee buckling. LTG Duration 01/23/24 Two Impairment Pt ambulates 174' during Two Minute Walk Test using FWW Short Term Goal (STG) Pt to exhibit ability to complete full 6MWT with no rest breaks using LRAD, ambulating >600' in order to demonstrate improve gait speed and activity tolerance STG Duration Met Roller Leveler Goal (LTG) Pt to complete 6MWT with a gait speed >1.97 ft/sec, as this cutoff is an indication of further functional decline in older adults. LTG Duration 01/23/24 One Impairment Pt does not have an appropriate home exercise program Short Term Goal (STG) Pt to be independent and compliant with an appropriate HEP STG Duration 12/26/23 - improving Assessment Summary Assessment Pt continues to progress well, 6MWT improved from 470' /c SPC last re-testing to 628' /c SPC today. Improvement in quad control, R quad MMT improved from 1/5 to 2/5. continue to focus on quad strength, gait, balance, functional mobility, and increased activity tolerance Physical Therapy Plan Frequency and Duration Frequency of Treatment 2x/Week Plan of Care Start Date 10/25/23 Plan of Care End Date 01/23/24 Therapeutic Interventions Therapeutic Interventions Balance Training,Coordination Training,Gait Training,Home Exercise Program,Joint Mobilizations,Manual Therapy, Neuromuscular Re-education, Patient/Caregiver Education, Self-Care/Home Management, Sensory Integration,Soft Tissue Mobilization, Therapeutic Activities, Therapeutic Exercises Next Visit Focus/Plan Next Note Type Treatment Note Next Visit Plan Continue functional RLE strengthening. SPC training POC: Balance Outdoor gait training with SPC , revisit step ups on scale, possibly stagger stance sit to stand
--- NOTE | 2023-10-25 12:06 | PT.OPPN ---
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, right leg, subsequent encounter (10/25/23) Other specified postprocedural states (10/25/23) Physical Therapy Progress Note PT-OP-A Visit Information Start: 05/05/23 15:26 Freq: Status: Active Protocol: Document 10/25/23 11:15 DCW (Rec: 10/25/23 12:02 DCW [id number]) Out-Patient Physical Therapy Visit Information Visit Information Visit Type Progress Note Visit Note 05/15 Visit Start Time 11:15 Visit Stop Time 12:00 Visit Number 45 Number of CARD PUNCHER Visits 0 Evaluation Information Evaluation Date 05/05/23 PT-OP-B Current Condition Start: 05/05/23 15:26 Freq: Status: Active Protocol: Document 05/05/23 13:50 DCW (Rec: 05/05/23 15:48 DCW [id number]) Current Condition History of Current Condition Onset Date 12/31/22 Current Complaints R LE weakness, falls, neuromuscular dysfunction History of Current Condition Pt is a 73 year old female presenting with a complex recent medical history. Pt was brought to ED on 12/31/22 by EMS for nausea, vomiting, and generalized weakness. Was found to have cerebellar bleed and was transferred to [facility]. 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 Pt was at [facility] for 5 1/2 weeks, and then transferred to a rehab facility in [place] for another two months. Pt reports that at [facility], she was up walking around fairly well, but then developed severe nerve pain in her right leg. Found to have a large hematoma in her right low back/hip which ended up compressing right LE nerves. This resulted in loss of motor function and sensory imput from right leg. Pt admits she was miserable waiting for the pain to stop. Due to motor dysfunction in her right leg, was having increased difficulty walking, and spent her time in rehab in a wheelchair. Leg weakness resulted in two fals, both of which yusef her right knee. Pt has recently been working with home health, and is now doing well enough to progress to out-patient PT. Has been walking at home with a FWW, just obtained a 4WW, but not comfortable with it yet. Reports she can get herself to the kitchen, and furniture surf using the countertop and cabinets, and is able to dress and perform pericare independently. Still requires assistance with showering. Has friend helping as caregiver. Treatment Goals Patient/Caregiver Goals Pt's stated goals are to learn how to properly use 4WW, get right LE moving better, and walk on her own. PT-OP-C Subjective Start: 05/05/23 15:26 Freq: Status: Active Protocol: Document 10/25/23 11:15 DCW (Rec: 10/25/23 12:02 DCW [id number]) OP-PT Subjective Patient Comments Patient Comments Pt able to drive herself today . Feeling good about overall progression. PT-OP-E Functional Tests Start: 05/05/23 15:26 Freq: Status: Active Protocol: Document 10/25/23 11:15 DCW (Rec: 10/25/23 11:36 DCW [id number]) Functional Tests 6 Minute Walk Test Distance 628' Device Used SPC Comments 1.74 ft/sec 30 Second Sit to Stand Test Score x10 repetitions Comments minimal UE use PT-OP-G Mobility & Gait Start: 05/05/23 15:26 Freq: Status: Active Protocol: Document 10/25/23 11:15 DCW (Rec: 10/25/23 11:36 DCW [id number]) OP Gait Assessment Gait Gait Assistance Required: Standby Assistance Distance (Feet) 628 Assistive Devices Assistive Device Gait Belt,Straight Cane Comments Gait Comments Improving motor control of right quad during gait PT-OP-H Neuro Start: 05/05/23 15:26 Freq: Status: Active Protocol: Document 10/25/23 11:15 DCW (Rec: 10/25/23 11:36 DCW [id number]) Sensation Evaluation Gross Sensation Gross Sensation Right LE Impaired Sensation Description Numbness,Tingling PT-OP-M Strength Start: 05/05/23 15:26 Freq: Status: Active Protocol: Document 10/25/23 11:15 DCW (Rec: 10/25/23 11:36 DCW [id number]) Hip Strength Hip Manual Muscle Testing Right Flexion (L2) 3 Fair Extension (S1) 4+ Good+ Abduction 4- Good- Adduction 4- Good- Left Flexion (L2) 4+ Good+ Extension (S1) 4+ Good+ Abduction 4+ Good+ Adduction 4+ Good+ Knee Strength Knee Manual Muscle Testing Right Flexion (S2) 5 Normal Extension (L3) 2 Poor Left Flexion (S2) 5 Normal Extension (L3) 5 Normal Ankle/Foot Strength Ankle and Foot Manual Muscle Testing Right Dorsiflexion (L4) 4+ Good+ Plantarflexion (S1) 4+ Good+ Left Dorsiflexion (L4) 4+ Good+ Plantarflexion (S1) 4+ Good+ PT-OP-O Vestibular Start: 06/24/23 12:49 Freq: Status: Active Protocol: Document 06/24/23 12:00 DCW (Rec: 06/24/23 12:49 DCW [id number]) Vestibular Assessment Auditory Tests [place] Test Within normal limits Rinne Test Negative Air Conduction Results Equal Visual Testing Smooth Pursuits Horizontal WNL Smooth Pursuits Vertical WNL Saccades Horizontal WNL Heave Test Positive Bilateral Thrust Head Positive Bilateral Spontaneous Nystagmus Negative Positional Testing [place]-Hallpike Negative Left,Negative Right Rolling Test Negative Left,Negative Right PT-OP-T Assessment and Plan Start: 05/05/23 15:26 Freq: Status: Active Protocol: Document 10/25/23 11:15 DCW (Rec: 10/25/23 12:02 DCW [id number]) Physical Therapy Assessment Impairments Impairments Balance,Functional Activities, Functional Mobility,Pain,ROM, Sensation,Soft Tissue Mobility ,Strength,Tone,Transfers Goals Three Impairment Pt currently demonstrating 0/5 MMT right quad Short Term Goal (STG) Pt to exhibit 2-/5 MMT or greater of right quad in order to improve ability to limit knee buckling. STG Duration Met Intermediate Goal (LTG) Pt to exhibit 3/5 MMT or greater of right quad in order to improve ability to limit knee buckling. LTG Duration 01/23/24 Two Impairment Pt ambulates 174' during Two Minute Walk Test using FWW Short Term Goal (STG) Pt to exhibit ability to complete full 6MWT with no rest breaks using LRAD, ambulating >600' in order to demonstrate improve gait speed and activity tolerance STG Duration Met Control Clerk Goal (LTG) Pt to complete 6MWT with a gait speed >1.97 ft/sec, as this cutoff is an indication of further functional decline in older adults. LTG Duration 01/23/24 One Impairment Pt does not have an appropriate home exercise program Short Term Goal (STG) Pt to be independent and compliant with an appropriate HEP STG Duration 12/26/23 - improving Assessment Summary Assessment Pt continues to progress well, 6MWT improved from 470' /c SPC last re-testing to 628' /c SPC today. Improvement in quad control, R quad MMT improved from 1/5 to 2/5. continue to focus on quad strength, gait, balance, functional mobility, and increased activity tolerance Physical Therapy Plan Frequency and Duration Frequency of Treatment 2x/Week Plan of Care Start Date 10/25/23 Plan of Care End Date 01/23/24 Therapeutic Interventions Therapeutic Interventions Balance Training,Coordination Training,Gait Training,Home Exercise Program,Joint Mobilizations,Manual Therapy, Neuromuscular Re-education, Patient/Caregiver Education, Self-Care/Home Management, Sensory Integration,Soft Tissue Mobilization, Therapeutic Activities, Therapeutic Exercises Next Visit Focus/Plan Next Note Type Treatment Note Next Visit Plan Continue functional RLE strengthening. SPC training POC: Balance Outdoor gait training with SPC , revisit step ups on scale, possibly stagger stance sit to stand
--- NOTE | 2023-10-25 12:07 | PT.OPPOC ---
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 [id number], [place], [address] Email: Plan Of Care PT-OP-T Assessment and Plan Start: 05/05/23 15:26 Freq: Status: Active Protocol: Document 10/25/23 11:15 DCW (Rec: 10/25/23 12:02 DCW [id number]) Physical Therapy Assessment Impairments Impairments Balance,Functional Activities, Functional Mobility,Pain,ROM, Sensation,Soft Tissue Mobility ,Strength,Tone,Transfers Goals Three Impairment Pt currently demonstrating 0/5 MMT right quad Short Term Goal (STG) Pt to exhibit 2-/5 MMT or greater of right quad in order to improve ability to limit knee buckling. STG Duration Met Alf Goal (LTG) Pt to exhibit 3/5 MMT or greater of right quad in order to improve ability to limit knee buckling. LTG Duration 01/23/24 Two Impairment Pt ambulates 174' during Two Minute Walk Test using FWW Short Term Goal (STG) Pt to exhibit ability to complete full 6MWT with no rest breaks using LRAD, ambulating >600' in order to demonstrate improve gait speed and activity tolerance STG Duration Met Alf Goal (LTG) Pt to complete 6MWT with a gait speed >1.97 ft/sec, as this cutoff is an indication of further functional decline in older adults. LTG Duration 01/23/24 One Impairment Pt does not have an appropriate home exercise program Short Term Goal (STG) Pt to be independent and compliant with an appropriate HEP STG Duration 12/26/23 - improving Assessment Summary Assessment Pt continues to progress well, 6MWT improved from 470' /c SPC last re-testing to 628' /c SPC today. Improvement in quad control, R quad MMT improved from 1/5 to 2/5. continue to focus on quad strength, gait, balance, functional mobility, and increased activity tolerance Physical Therapy Plan Frequency and Duration Frequency of Treatment 2x/Week Plan of Care Start Date 10/25/23 Plan of Care End Date 01/23/24 Therapeutic Interventions Therapeutic Interventions Balance Training,Coordination Training,Gait Training,Home Exercise Program,Joint Mobilizations,Manual Therapy, Neuromuscular Re-education, Patient/Caregiver Education, Self-Care/Home Management, Sensory Integration,Soft Tissue Mobilization, Therapeutic Activities, Therapeutic Exercises Next Visit Focus/Plan Next Note Type Treatment Note Next Visit Plan Continue functional RLE strengthening. SPC training POC: Balance Outdoor gait training with SPC , revisit step ups on scale, possibly stagger stance sit to stand Plan of Care Dates Plan of Care Start Date 10/25/23 Plan of Care End Date 01/23/24 Electronically Signed by: Romain Zuñiga, PT 10/25/23 1163 If you are in agreement with this Plan of Care, please return a signed and dated copy. I have reviewed this Plan of Care and certify that the skilled therapy services above are required to meet the patient?s needs. Physician Signature Date Printed Name and Credentials Clinical Instructor Signature Printed Name and Credentials
--- NOTE | 2023-10-27 12:01 | PT.OTN ---
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, right leg, subsequent encounter (10/27/23) Other specified postprocedural states (10/27/23) Physical Therapy Treatment Note PT-OP-A Visit Information Start: 05/05/23 15:26 Freq: Status: Active Protocol: Document 10/27/23 11:15 DCW (Rec: 10/27/23 12:01 DCW [id number]) Out-Patient Physical Therapy Visit Information Visit Information Visit Type Treatment Note Visit Note 04/14 Visit Start Time 11:15 Visit Stop Time 12:00 Visit Number 45 Number of MANAGER FIELD SERVICE Visits 0 Evaluation Information Evaluation Date 05/05/23 PT-OP-B Current Condition Start: 05/05/23 15:26 Freq: Status: Active Protocol: Document 05/05/23 13:50 DCW (Rec: 05/05/23 15:48 DCW [id number]) Current Condition History of Current Condition Onset Date 12/31/22 Current Complaints R LE weakness, falls, neuromuscular dysfunction History of Current Condition Pt is a 73 year old female presenting with a complex recent medical history. Pt was brought to ED on 12/31/22 by EMS for nausea, vomiting, and generalized weakness. Was found to have cerebellar bleed and was transferred to [facility]. 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 Pt was at [facility] for 5 1/2 weeks, and then transferred to a rehab facility in [place] for another two months. Pt reports that at [facility], she was up walking around fairly well, but then developed severe nerve pain in her right leg. Found to have a large hematoma in her right low back/hip which ended up compressing right LE nerves. This resulted in loss of motor function and sensory imput from right leg. Pt admits she was miserable waiting for the pain to stop. Due to motor dysfunction in her right leg, was having increased difficulty walking, and spent her time in rehab in a wheelchair. Leg weakness resulted in two fals, both of which yusef her right knee. Pt has recently been working with home health, and is now doing well enough to progress to out-patient PT. Has been walking at home with a FWW, just obtained a 4WW, but not comfortable with it yet. Reports she can get herself to the kitchen, and furniture surf using the countertop and cabinets, and is able to dress and perform pericare independently. Still requires assistance with showering. Has friend helping as caregiver. Treatment Goals Patient/Caregiver Goals Pt's stated goals are to learn how to properly use 4WW, get right LE moving better, and walk on her own. PT-OP-C Subjective Start: 05/05/23 15:26 Freq: Status: Active Protocol: Document 10/27/23 11:15 DCW (Rec: 10/27/23 12:01 DCW [id number]) OP-PT Subjective Patient Comments Patient Comments Pt feeling good about recent gains, happy to be driving a little more recently. PT-OP-E Functional Tests Start: 05/05/23 15:26 Freq: Status: Active Protocol: Document 10/25/23 11:15 DCW (Rec: 10/25/23 11:36 DCW [id number]) Functional Tests 6 Minute Walk Test Distance 628' Device Used SPC Comments 1.74 ft/sec 30 Second Sit to Stand Test Score x10 repetitions Comments minimal UE use PT-OP-G Mobility & Gait Start: 05/05/23 15:26 Freq: Status: Active Protocol: Document 10/25/23 11:15 DCW (Rec: 10/25/23 11:36 DCW [id number]) OP Gait Assessment Gait Gait Assistance Required: Standby Assistance Distance (Feet) 628 Assistive Devices Assistive Device Gait Belt,Straight Cane Comments Gait Comments Improving motor control of right quad during gait PT-OP-H Neuro Start: 05/05/23 15:26 Freq: Status: Active Protocol: Document 10/25/23 11:15 DCW (Rec: 10/25/23 11:36 DCW [id number]) Sensation Evaluation Gross Sensation Gross Sensation Right LE Impaired Sensation Description Numbness,Tingling PT-OP-M Strength Start: 05/05/23 15:26 Freq: Status: Active Protocol: Document 10/25/23 11:15 DCW (Rec: 10/25/23 11:36 DCW [id number]) Hip Strength Hip Manual Muscle Testing Right Flexion (L2) 3 Fair Extension (S1) 4+ Good+ Abduction 4- Good- Adduction 4- Good- Left Flexion (L2) 4+ Good+ Extension (S1) 4+ Good+ Abduction 4+ Good+ Adduction 4+ Good+ Knee Strength Knee Manual Muscle Testing Right Flexion (S2) 5 Normal Extension (L3) 2 Poor Left Flexion (S2) 5 Normal Extension (L3) 5 Normal Ankle/Foot Strength Ankle and Foot Manual Muscle Testing Right Dorsiflexion (L4) 4+ Good+ Plantarflexion (S1) 4+ Good+ Left Dorsiflexion (L4) 4+ Good+ Plantarflexion (S1) 4+ Good+ PT-OP-O Vestibular Start: 06/24/23 12:49 Freq: Status: Active Protocol: Document 06/24/23 12:00 DCW (Rec: 06/24/23 12:49 DCW [id number]) Vestibular Assessment Auditory Tests Zurita Test Within normal limits Rinne Test Negative Air Conduction Results Equal Visual Testing Smooth Pursuits Horizontal WNL Smooth Pursuits Vertical WNL Saccades Horizontal WNL Heave Test Positive Bilateral Thrust Head Positive Bilateral Spontaneous Nystagmus Negative Positional Testing [place]-Hallpike Negative Left,Negative Right Rolling Test Negative Left,Negative Right PT-OP-Q Treatments Start: 05/05/23 15:26 Freq: Status: Active Protocol: Document 10/27/23 11:15 DCW (Rec: 10/27/23 12:01 DCW [id number]) Cardio Equipment Recumbent Elliptical (Biodex) Duration (Minutes) 6 Resistance 8 Seat Position 9 Gym Equipment Shuttle Balance Red Details WBOS, NBOS, Staggered Reps/Duration 8 min Comments w/head turns Therapeutic Exercises Sitting Exercises LAQ Sitting Exercise Name kicking small ball, blue Side right Resistance 4#->5# aw Gait Training Gait Activity Cane Description Indoor ambulation Device Used SPC Level of Assistance CGA Surface Retro Walking Treatment Focus balance, gait training with SPC Neuro Re-Education Treatment Balance Activities Mats with objects Details Uneven surfaces Equipment SPC Comments Fwd, Side-stepping PT-OP-R Modalities Start: 05/10/23 13:44 Freq: Status: Active Protocol: Document 07/09/23 10:15 AB (Rec: 07/09/23 11:36 AB [id number]) Electric Stimulation Electric Stimulation Burundian Stimulation Body Location right quad Intensity 25 Ramp 0.5 Comments 10 on 30 off, performed quad sets, sidelying knee extension from ~90 deg flexion, LAQ AA as unable on initial trials PT-OP-T Assessment and Plan Start: 05/05/23 15:26 Freq: Status: Active Protocol: Document 10/27/23 11:15 DCW (Rec: 10/27/23 12:01 DCW [id number]) Physical Therapy Assessment Impairments Impairments Balance,Functional Activities, Functional Mobility,Pain,ROM, Sensation,Soft Tissue Mobility ,Strength,Tone,Transfers Goals Three Impairment Pt currently demonstrating 0/5 MMT right quad Short Term Goal (STG) Pt to exhibit 2-/5 MMT or greater of right quad in order to improve ability to limit knee buckling. STG Duration Met Geodesist Goal (LTG) Pt to exhibit 3/5 MMT or greater of right quad in order to improve ability to limit knee buckling. LTG Duration 01/23/24 Two Impairment Pt ambulates 174' during Two Minute Walk Test using FWW Short Term Goal (STG) Pt to exhibit ability to complete full 6MWT with no rest breaks using LRAD, ambulating >600' in order to demonstrate improve gait speed and activity tolerance STG Duration Met Alf Goal (LTG) Pt to complete 6MWT with a gait speed >1.97 ft/sec, as this cutoff is an indication of further functional decline in older adults. LTG Duration 01/23/24 One Impairment Pt does not have an appropriate home exercise program Short Term Goal (STG) Pt to be independent and compliant with an appropriate HEP STG Duration 12/26/23 - improving Assessment Summary Assessment Progressing well, doing much better with quad function, kicking ball is a much more natural motion, increased quad contraction. Physical Therapy Plan Frequency and Duration Frequency of Treatment 2x/Week Plan of Care Start Date 10/25/23 Plan of Care End Date 01/23/24 Therapeutic Interventions Therapeutic Interventions Balance Training,Coordination Training,Gait Training,Home Exercise Program,Joint Mobilizations,Manual Therapy, Neuromuscular Re-education, Patient/Caregiver Education, Self-Care/Home Management, Sensory Integration,Soft Tissue Mobilization, Therapeutic Activities, Therapeutic Exercises Next Visit Focus/Plan Next Note Type Treatment Note Next Visit Plan Continue functional RLE strengthening. SPC training POC: Balance Outdoor gait training with SPC , revisit step ups on scale, possibly stagger stance sit to stand
--- NOTE | 2023-11-01 12:01 | PT.OTN ---
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, right leg, subsequent encounter (11/01/23) Other specified postprocedural states (11/01/23) Physical Therapy Treatment Note PT-OP-A Visit Information Start: 05/05/23 15:26 Freq: Status: Active Protocol: Document 11/01/23 11:15 DCW (Rec: 11/01/23 12:01 DCW [id number]) Out-Patient Physical Therapy Visit Information Visit Information Visit Type Treatment Note Visit Note 05/15 Visit Start Time 11:15 Visit Stop Time 12:00 Visit Number 47 Number of NUTRITION SERVICES AIDE Visits 0 Evaluation Information Evaluation Date 05/05/23 PT-OP-B Current Condition Start: 05/05/23 15:26 Freq: Status: Active Protocol: Document 05/05/23 13:50 DCW (Rec: 05/05/23 15:48 DCW [id number]) Current Condition History of Current Condition Onset Date 12/31/22 Current Complaints R LE weakness, falls, neuromuscular dysfunction History of Current Condition Pt is a 73 year old female presenting with a complex recent medical history. Pt was brought to ED on 12/31/22 by EMS for nausea, vomiting, and generalized weakness. Was found to have cerebellar bleed and was transferred to [facility]. 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 Pt was at [facility] for 5 1/2 weeks, and then transferred to a rehab facility in [place] for another two months. Pt reports that at [facility], she was up walking around fairly well, but then developed severe nerve pain in her right leg. Found to have a large hematoma in her right low back/hip which ended up compressing right LE nerves. This resulted in loss of motor function and sensory imput from right leg. Pt admits she was miserable waiting for the pain to stop. Due to motor dysfunction in her right leg, was having increased difficulty walking, and spent her time in rehab in a wheelchair. Leg weakness resulted in two fals, both of which yusef her right knee. Pt has recently been working with home health, and is now doing well enough to progress to out-patient PT. Has been walking at home with a FWW, just obtained a 4WW, but not comfortable with it yet. Reports she can get herself to the kitchen, and furniture surf using the countertop and cabinets, and is able to dress and perform pericare independently. Still requires assistance with showering. Has friend helping as caregiver. Treatment Goals Patient/Caregiver Goals Pt's stated goals are to learn how to properly use 4WW, get right LE moving better, and walk on her own. PT-OP-C Subjective Start: 05/05/23 15:26 Freq: Status: Active Protocol: Document 11/01/23 11:15 DCW (Rec: 11/01/23 12:01 DCW [id number]) OP-PT Subjective Patient Comments Patient Comments Pt notes no big changes overall, had a friend let her borrow an exercise step, has been working more on 4 step- ups. PT-OP-E Functional Tests Start: 05/05/23 15:26 Freq: Status: Active Protocol: Document 10/25/23 11:15 DCW (Rec: 10/25/23 11:36 DCW [id number]) Functional Tests 6 Minute Walk Test Distance 628' Device Used SPC Comments 1.74 ft/sec 30 Second Sit to Stand Test Score x10 repetitions Comments minimal UE use PT-OP-G Mobility & Gait Start: 05/05/23 15:26 Freq: Status: Active Protocol: Document 10/25/23 11:15 DCW (Rec: 10/25/23 11:36 DCW [id number]) OP Gait Assessment Gait Gait Assistance Required: Standby Assistance Distance (Feet) 628 Assistive Devices Assistive Device Gait Belt,Straight Cane Comments Gait Comments Improving motor control of right quad during gait PT-OP-H Neuro Start: 05/05/23 15:26 Freq: Status: Active Protocol: Document 10/25/23 11:15 DCW (Rec: 10/25/23 11:36 DCW [id number]) Sensation Evaluation Gross Sensation Gross Sensation Right LE Impaired Sensation Description Numbness,Tingling PT-OP-M Strength Start: 05/05/23 15:26 Freq: Status: Active Protocol: Document 10/25/23 11:15 DCW (Rec: 10/25/23 11:36 DCW [id number]) Hip Strength Hip Manual Muscle Testing Right Flexion (L2) 3 Fair Extension (S1) 4+ Good+ Abduction 4- Good- Adduction 4- Good- Left Flexion (L2) 4+ Good+ Extension (S1) 4+ Good+ Abduction 4+ Good+ Adduction 4+ Good+ Knee Strength Knee Manual Muscle Testing Right Flexion (S2) 5 Normal Extension (L3) 2 Poor Left Flexion (S2) 5 Normal Extension (L3) 5 Normal Ankle/Foot Strength Ankle and Foot Manual Muscle Testing Right Dorsiflexion (L4) 4+ Good+ Plantarflexion (S1) 4+ Good+ Left Dorsiflexion (L4) 4+ Good+ Plantarflexion (S1) 4+ Good+ PT-OP-O Vestibular Start: 06/24/23 12:49 Freq: Status: Active Protocol: Document 06/24/23 12:00 DCW (Rec: 06/24/23 12:49 DCW [id number]) Vestibular Assessment Auditory Tests Zur[place] Test Within normal limits Rinne Test Negative Air Conduction Results Equal Visual Testing Smooth Pursuits Horizontal WNL Smooth Pursuits Vertical WNL Saccades Horizontal WNL Heave Test Positive Bilateral Thrust Head Positive Bilateral Spontaneous Nystagmus Negative Positional Testing [place]-Hallpike Negative Left,Negative Right Rolling Test Negative Left,Negative Right PT-OP-Q Treatments Start: 05/05/23 15:26 Freq: Status: Active Protocol: Document 11/01/23 11:15 DCW (Rec: 11/01/23 12:01 DCW [id number]) Cardio Equipment Recumbent Elliptical (Biodex) Duration (Minutes) 6 Resistance 8 Seat Position 9 Gym Equipment Shuttle Balance Red Details WBOS, NBOS, Staggered Comments w/head turns Therapeutic Exercises Sitting Exercises LAQ Sitting Exercise Name kicking small ball, blue Side right Resistance 5# aw Standing Exercises step up Standing Exercise Name step up Side right Equipment Used 4->5 Gait Training Gait Activity Cane Description Indoor ambulation Device Used SPC Level of Assistance CGA Surface Forward, Side-stepping Treatment Focus balance, gait training with SPC PT-OP-R Modalities Start: 05/10/23 13:44 Freq: Status: Active Protocol: Document 07/09/23 10:15 AB (Rec: 07/09/23 11:36 AB [id number]) Electric Stimulation Electric Stimulation Lithuanian Stimulation Body Location right quad Intensity 25 Ramp 0.5 Comments 10 on 30 off, performed quad sets, sidelying knee extension from ~90 deg flexion, LAQ AA as unable on initial trials PT-OP-T Assessment and Plan Start: 05/05/23 15:26 Freq: Status: Active Protocol: Document 11/01/23 11:15 DCW (Rec: 11/01/23 12:01 DCW [id number]) Physical Therapy Assessment Impairments Impairments Balance,Functional Activities, Functional Mobility,Pain,ROM, Sensation,Soft Tissue Mobility ,Strength,Tone,Transfers Goals Three Impairment Pt currently demonstrating 0/5 MMT right quad Short Term Goal (STG) Pt to exhibit 2-/5 MMT or greater of right quad in order to improve ability to limit knee buckling. STG Duration Met Shelter Goal (LTG) Pt to exhibit 3/5 MMT or greater of right quad in order to improve ability to limit knee buckling. LTG Duration 01/23/24 Two Impairment Pt ambulates 174' during Two Minute Walk Test using FWW Short Term Goal (STG) Pt to exhibit ability to complete full 6MWT with no rest breaks using LRAD, ambulating >600' in order to demonstrate improve gait speed and activity tolerance STG Duration Met Phytochemistry Professor Goal (LTG) Pt to complete 6MWT with a gait speed >1.97 ft/sec, as this cutoff is an indication of further functional decline in older adults. LTG Duration 01/23/24 One Impairment Pt does not have an appropriate home exercise program Short Term Goal (STG) Pt to be independent and compliant with an appropriate HEP STG Duration 12/26/23 - improving Assessment Summary Assessment Continues to show progress with right quad contraction, step-ups and ball kicks improving in quality and consistency. Physical Therapy Plan Frequency and Duration Frequency of Treatment 2x/Week Plan of Care Start Date 10/25/23 Plan of Care End Date 01/23/24 Therapeutic Interventions Therapeutic Interventions Balance Training,Coordination Training,Gait Training,Home Exercise Program,Joint Mobilizations,Manual Therapy, Neuromuscular Re-education, Patient/Caregiver Education, Self-Care/Home Management, Sensory Integration,Soft Tissue Mobilization, Therapeutic Activities, Therapeutic Exercises Next Visit Focus/Plan Next Note Type Treatment Note Next Visit Plan Continue functional RLE strengthening. SPC training POC: Balance Outdoor gait training with SPC , revisit step ups on scale, possibly stagger stance sit to stand
--- NOTE | 2023-11-03 17:33 | PT.OTN ---
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, right leg, subsequent encounter (11/03/23) Other specified postprocedural states (11/03/23) Physical Therapy Treatment Note PT-OP-A Visit Information Start: 05/05/23 15:26 Freq: Status: Active Protocol: Document 11/03/23 16:48 DCW (Rec: 11/03/23 17:33 DCW [id number]) Out-Patient Physical Therapy Visit Information Visit Information Visit Type Treatment Note Visit Note 06/12 Visit Start Time 16:48 Visit Stop Time 17:30 Visit Number 48 Number of DIETETIC TECHNICIAN REGISTERED Visits 0 Evaluation Information Evaluation Date 05/05/23 PT-OP-B Current Condition Start: 05/05/23 15:26 Freq: Status: Active Protocol: Document 05/05/23 13:50 DCW (Rec: 05/05/23 15:48 DCW [id number]) Current Condition History of Current Condition Onset Date 12/31/22 Current Complaints R LE weakness, falls, neuromuscular dysfunction History of Current Condition Pt is a 73 year old female presenting with a complex recent medical history. Pt was brought to ED on 12/31/22 by EMS for nausea, vomiting, and generalized weakness. Was found to have cerebellar bleed and was transferred to [facility]. 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 Pt was at [facility] for 5 1/2 weeks, and then transferred to a rehab facility in [place] for another two months. Pt reports that at [facility], she was up walking around fairly well, but then developed severe nerve pain in her right leg. Found to have a large hematoma in her right low back/hip which ended up compressing right LE nerves. This resulted in loss of motor function and sensory imput from right leg. Pt admits she was miserable waiting for the pain to stop. Due to motor dysfunction in her right leg, was having increased difficulty walking, and spent her time in rehab in a wheelchair. Leg weakness resulted in two fals, both of which yusef her right knee. Pt has recently been working with home health, and is now doing well enough to progress to out-patient PT. Has been walking at home with a FWW, just obtained a 4WW, but not comfortable with it yet. Reports she can get herself to the kitchen, and furniture surf using the countertop and cabinets, and is able to dress and perform pericare independently. Still requires assistance with showering. Has friend helping as caregiver. Treatment Goals Patient/Caregiver Goals Pt's stated goals are to learn how to properly use 4WW, get right LE moving better, and walk on her own. PT-OP-C Subjective Start: 05/05/23 15:26 Freq: Status: Active Protocol: Document 11/03/23 16:48 DCW (Rec: 11/03/23 17:33 DCW [id number]) OP-PT Subjective Patient Comments Patient Comments I was doing a lot of gardening, which was a lot of twisting and turning, which led to cramping last night, but otherwise, it's good. PT-OP-E Functional Tests Start: 05/05/23 15:26 Freq: Status: Active Protocol: Document 10/25/23 11:15 DCW (Rec: 10/25/23 11:36 DCW [id number]) Functional Tests 6 Minute Walk Test Distance 628' Device Used SPC Comments 1.74 ft/sec 30 Second Sit to Stand Test Score x10 repetitions Comments minimal UE use PT-OP-G Mobility & Gait Start: 05/05/23 15:26 Freq: Status: Active Protocol: Document 10/25/23 11:15 DCW (Rec: 10/25/23 11:36 DCW [id number]) OP Gait Assessment Gait Gait Assistance Required: Standby Assistance Distance (Feet) 628 Assistive Devices Assistive Device Gait Belt,Straight Cane Comments Gait Comments Improving motor control of right quad during gait PT-OP-H Neuro Start: 05/05/23 15:26 Freq: Status: Active Protocol: Document 10/25/23 11:15 DCW (Rec: 10/25/23 11:36 DCW [id number]) Sensation Evaluation Gross Sensation Gross Sensation Right LE Impaired Sensation Description Numbness,Tingling PT-OP-M Strength Start: 05/05/23 15:26 Freq: Status: Active Protocol: Document 10/25/23 11:15 DCW (Rec: 10/25/23 11:36 DCW [id number]) Hip Strength Hip Manual Muscle Testing Right Flexion (L2) 3 Fair Extension (S1) 4+ Good+ Abduction 4- Good- Adduction 4- Good- Left Flexion (L2) 4+ Good+ Extension (S1) 4+ Good+ Abduction 4+ Good+ Adduction 4+ Good+ Knee Strength Knee Manual Muscle Testing Right Flexion (S2) 5 Normal Extension (L3) 2 Poor Left Flexion (S2) 5 Normal Extension (L3) 5 Normal Ankle/Foot Strength Ankle and Foot Manual Muscle Testing Right Dorsiflexion (L4) 4+ Good+ Plantarflexion (S1) 4+ Good+ Left Dorsiflexion (L4) 4+ Good+ Plantarflexion (S1) 4+ Good+ PT-OP-O Vestibular Start: 06/24/23 12:49 Freq: Status: Active Protocol: Document 06/24/23 12:00 DCW (Rec: 06/24/23 12:49 DCW [id number]) Vestibular Assessment Auditory Tests Zurita Test Within normal limits Rinne Test Negative Air Conduction Results Equal Visual Testing Smooth Pursuits Horizontal WNL Smooth Pursuits Vertical WNL Saccades Horizontal WNL Heave Test Positive Bilateral Thrust Head Positive Bilateral Spontaneous Nystagmus Negative Positional Testing Ortega-Hallpike Negative Left,Negative Right Rolling Test Negative Left,Negative Right PT-OP-Q Treatments Start: 05/05/23 15:26 Freq: Status: Active Protocol: Document 11/03/23 16:48 DCW (Rec: 11/03/23 17:33 DCW [id number]) Cardio Equipment Recumbent Elliptical (Biodex) Duration (Minutes) 6 Resistance 8 Seat Position 9 Gym Equipment Shuttle Balance Red Details Staggered Comments w/head turns Therapeutic Exercises Sitting Exercises LAQ Sitting Exercise Name LAQ Side right Resistance 4#->0# Standing Exercises step up Standing Exercise Name step up/down Side right Equipment Used 5 step Hamstring Curls Standing Exercise Name HS curls Side right Gait Training Gait Activity Cane Description Indoor ambulation Device Used SPC Level of Assistance CGA Surface Side-stepping, Retro Ambulation Treatment Focus balance, gait training with SPC PT-OP-R Modalities Start: 05/10/23 13:44 Freq: Status: Active Protocol: Document 07/09/23 10:15 AB (Rec: 07/09/23 11:36 AB [id number]) Electric Stimulation Electric Stimulation Nigerian Stimulation Body Location right quad Intensity 25 Ramp 0.5 Comments 10 on 30 off, performed quad sets, sidelying knee extension from ~90 deg flexion, LAQ AA as unable on initial trials PT-OP-T Assessment and Plan Start: 05/05/23 15:26 Freq: Status: Active Protocol: Document 11/03/23 16:48 DCW (Rec: 11/03/23 17:33 DCW [id number]) Physical Therapy Assessment Impairments Impairments Balance,Functional Activities, Functional Mobility,Pain,ROM, Sensation,Soft Tissue Mobility ,Strength,Tone,Transfers Goals Three Impairment Pt currently demonstrating 0/5 MMT right quad Short Term Goal (STG) Pt to exhibit 2-/5 MMT or greater of right quad in order to improve ability to limit knee buckling. STG Duration Met Nursing Home Goal (LTG) Pt to exhibit 3/5 MMT or greater of right quad in order to improve ability to limit knee buckling. LTG Duration 01/23/24 Two Impairment Pt ambulates 174' during Two Minute Walk Test using FWW Short Term Goal (STG) Pt to exhibit ability to complete full 6MWT with no rest breaks using LRAD, ambulating >600' in order to demonstrate improve gait speed and activity tolerance STG Duration Met Nursing Home Goal (LTG) Pt to complete 6MWT with a gait speed >1.97 ft/sec, as this cutoff is an indication of further functional decline in older adults. LTG Duration 01/23/24 One Impairment Pt does not have an appropriate home exercise program Short Term Goal (STG) Pt to be independent and compliant with an appropriate HEP STG Duration 12/26/23 - improving Assessment Summary Assessment Pt doing well with gait using SPC, improved side-stepping and retro walking. Physical Therapy Plan Frequency and Duration Frequency of Treatment 2x/Week Plan of Care Start Date 10/25/23 Plan of Care End Date 01/23/24 Therapeutic Interventions Therapeutic Interventions Balance Training,Coordination Training,Gait Training,Home Exercise Program,Joint Mobilizations,Manual Therapy, Neuromuscular Re-education, Patient/Caregiver Education, Self-Care/Home Management, Sensory Integration,Soft Tissue Mobilization, Therapeutic Activities, Therapeutic Exercises Next Visit Focus/Plan Next Note Type Treatment Note Next Visit Plan Continue functional RLE strengthening. SPC training POC: Balance Outdoor gait training with SPC , revisit step ups on scale, possibly stagger stance sit to stand
--- NOTE | 2023-11-08 12:47 | PT.OTN ---
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, right leg, subsequent encounter (11/08/23) Other specified postprocedural states (11/08/23) Physical Therapy Treatment Note PT-OP-A Visit Information Start: 05/05/23 15:26 Freq: Status: Active Protocol: Document 11/08/23 12:03 DCW (Rec: 11/08/23 12:46 DCW [id number]) Out-Patient Physical Therapy Visit Information Visit Information Visit Type Treatment Note Visit Note 07/13 Visit Start Time 12:03 Visit Stop Time 12:45 Visit Number 49 Number of GUIDANCE AND CONTROL SYSTEM ENGINEER Visits 0 Evaluation Information Evaluation Date 05/05/23 PT-OP-B Current Condition Start: 05/05/23 15:26 Freq: Status: Active Protocol: Document 05/05/23 13:50 DCW (Rec: 05/05/23 15:48 DCW [id number]) Current Condition History of Current Condition Onset Date 12/31/22 Current Complaints R LE weakness, falls, neuromuscular dysfunction History of Current Condition Pt is a 73 year old female presenting with a complex recent medical history. Pt was brought to ED on 12/31/22 by EMS for nausea, vomiting, and generalized weakness. Was found to have cerebellar bleed and was transferred to [facility]. 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 Pt was at [facility] for 5 1/2 weeks, and then transferred to a rehab facility in [place] for another two months. Pt reports that at [facility], she was up walking around fairly well, but then developed severe nerve pain in her right leg. Found to have a large hematoma in her right low back/hip which ended up compressing right LE nerves. This resulted in loss of motor function and sensory imput from right leg. Pt admits she was miserable waiting for the pain to stop. Due to motor dysfunction in her right leg, was having increased difficulty walking, and spent her time in rehab in a wheelchair. Leg weakness resulted in two fals, both of which yusef her right knee. Pt has recently been working with home health, and is now doing well enough to progress to out-patient PT. Has been walking at home with a FWW, just obtained a 4WW, but not comfortable with it yet. Reports she can get herself to the kitchen, and furniture surf using the countertop and cabinets, and is able to dress and perform pericare independently. Still requires assistance with showering. Has friend helping as caregiver. Treatment Goals Patient/Caregiver Goals Pt's stated goals are to learn how to properly use 4WW, get right LE moving better, and walk on her own. PT-OP-C Subjective Start: 05/05/23 15:26 Freq: Status: Active Protocol: Document 11/08/23 12:03 DCW (Rec: 11/08/23 12:46 DCW [id number]) OP-PT Subjective Patient Comments Patient Comments Pt on top of the world today. I'm seeing improvement again, and every time I see improvement, I just get to excited. PT-OP-E Functional Tests Start: 05/05/23 15:26 Freq: Status: Active Protocol: Document 10/25/23 11:15 DCW (Rec: 10/25/23 11:36 DCW [id number]) Functional Tests 6 Minute Walk Test Distance 628' Device Used SPC Comments 1.74 ft/sec 30 Second Sit to Stand Test Score x10 repetitions Comments minimal UE use PT-OP-G Mobility & Gait Start: 05/05/23 15:26 Freq: Status: Active Protocol: Document 10/25/23 11:15 DCW (Rec: 10/25/23 11:36 DCW [id number]) OP Gait Assessment Gait Gait Assistance Required: Standby Assistance Distance (Feet) 628 Assistive Devices Assistive Device Gait Belt,Straight Cane Comments Gait Comments Improving motor control of right quad during gait PT-OP-H Neuro Start: 05/05/23 15:26 Freq: Status: Active Protocol: Document 10/25/23 11:15 DCW (Rec: 10/25/23 11:36 DCW [id number]) Sensation Evaluation Gross Sensation Gross Sensation Right LE Impaired Sensation Description Numbness,Tingling PT-OP-M Strength Start: 05/05/23 15:26 Freq: Status: Active Protocol: Document 10/25/23 11:15 DCW (Rec: 10/25/23 11:36 DCW [id number]) Hip Strength Hip Manual Muscle Testing Right Flexion (L2) 3 Fair Extension (S1) 4+ Good+ Abduction 4- Good- Adduction 4- Good- Left Flexion (L2) 4+ Good+ Extension (S1) 4+ Good+ Abduction 4+ Good+ Adduction 4+ Good+ Knee Strength Knee Manual Muscle Testing Right Flexion (S2) 5 Normal Extension (L3) 2 Poor Left Flexion (S2) 5 Normal Extension (L3) 5 Normal Ankle/Foot Strength Ankle and Foot Manual Muscle Testing Right Dorsiflexion (L4) 4+ Good+ Plantarflexion (S1) 4+ Good+ Left Dorsiflexion (L4) 4+ Good+ Plantarflexion (S1) 4+ Good+ PT-OP-O Vestibular Start: 06/24/23 12:49 Freq: Status: Active Protocol: Document 06/24/23 12:00 DCW (Rec: 06/24/23 12:49 DCW [id number]) Vestibular Assessment Auditory Tests Zurita Test Within normal limits Rinne Test Negative Air Conduction Results Equal Visual Testing Smooth Pursuits Horizontal WNL Smooth Pursuits Vertical WNL Saccades Horizontal WNL Heave Test Positive Bilateral Thrust Head Positive Bilateral Spontaneous Nystagmus Negative Positional Testing Ortega-Hallpike Negative Left,Negative Right Rolling Test Negative Left,Negative Right PT-OP-Q Treatments Start: 05/05/23 15:26 Freq: Status: Active Protocol: Document 11/08/23 12:03 DCW (Rec: 11/08/23 12:46 DCW [id number]) Cardio Equipment Recumbent Elliptical (Biodex) Duration (Minutes) 6 Resistance 8 Seat Position 9 Gym Equipment Shuttle Recovery Unilateral Squats Details Right Resistance 25# Shuttle Recovery Platform Stable Reps/Time VCs to limit assist with left Shuttle Balance Red Details WBOS, NBOS, Staggered Comments w/head turns Gait Training Gait Activity Cane Description Indoor ambulation Device Used SPC Level of Assistance CGA Surface Side-stepping, Retro Ambulation Treatment Focus balance, gait training with SPC Neuro Re-Education Treatment Balance Activities Mats with objects Details Uneven surfaces/Hurdles Equipment SPC Comments Fwd, Side-stepping tandem stepping Details CGA patient hands above bars to use as needed Reps/Duration 10 feet X 6 PT-OP-R Modalities Start: 05/10/23 13:44 Freq: Status: Active Protocol: Document 07/09/23 10:15 AB (Rec: 07/09/23 11:36 AB [id number]) Electric Stimulation Electric Stimulation Thai Stimulation Body Location right quad Intensity 25 Ramp 0.5 Comments 10 on 30 off, performed quad sets, sidelying knee extension from ~90 deg flexion, LAQ AA as unable on initial trials PT-OP-T Assessment and Plan Start: 05/05/23 15:26 Freq: Status: Active Protocol: Document 11/08/23 12:03 DCW (Rec: 11/08/23 12:46 DCW [id number]) Physical Therapy Assessment Impairments Impairments Balance,Functional Activities, Functional Mobility,Pain,ROM, Sensation,Soft Tissue Mobility ,Strength,Tone,Transfers Goals Three Impairment Pt currently demonstrating 0/5 MMT right quad Short Term Goal (STG) Pt to exhibit 2-/5 MMT or greater of right quad in order to improve ability to limit knee buckling. STG Duration Met Sports Betting Manager Goal (LTG) Pt to exhibit 3/5 MMT or greater of right quad in order to improve ability to limit knee buckling. LTG Duration 01/23/24 Two Impairment Pt ambulates 174' during Two Minute Walk Test using FWW Short Term Goal (STG) Pt to exhibit ability to complete full 6MWT with no rest breaks using LRAD, ambulating >600' in order to demonstrate improve gait speed and activity tolerance STG Duration Met Sports Betting Manager Goal (LTG) Pt to complete 6MWT with a gait speed >1.97 ft/sec, as this cutoff is an indication of further functional decline in older adults. LTG Duration 01/23/24 One Impairment Pt does not have an appropriate home exercise program Short Term Goal (STG) Pt to be independent and compliant with an appropriate HEP STG Duration 12/26/23 - improving Assessment Summary Assessment Pt showing progress with quad control, much better eccentric control during leg press vs prior attempts. Continue to focus on gait and balance challenges, quad strength, and stabilization Physical Therapy Plan Frequency and Duration Frequency of Treatment 2x/Week Plan of Care Start Date 10/25/23 Plan of Care End Date 01/23/24 Therapeutic Interventions Therapeutic Interventions Balance Training,Coordination Training,Gait Training,Home Exercise Program,Joint Mobilizations,Manual Therapy, Neuromuscular Re-education, Patient/Caregiver Education, Self-Care/Home Management, Sensory Integration,Soft Tissue Mobilization, Therapeutic Activities, Therapeutic Exercises Next Visit Focus/Plan Next Note Type Treatment Note Next Visit Plan Continue functional RLE strengthening. SPC training POC: Balance Outdoor gait training with SPC , revisit step ups on scale, possibly stagger stance sit to stand
--- NOTE | 2023-11-12 10:29 | PT.OTN ---
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, right leg, subsequent encounter (11/12/23) Other specified postprocedural states (11/12/23) Physical Therapy Treatment Note PT-OP-A Visit Information Start: 05/05/23 15:26 Freq: Status: Active Protocol: Document 11/12/23 09:51 SP (Rec: 11/12/23 10:34 SP [id number]) Out-Patient Physical Therapy Visit Information Visit Information Visit Type Treatment Note Visit Note 08/12 Visit Start Time 09:51 Visit Stop Time 10:29 Visit Number 50 Number of DIGITAL PRESS OPERATOR Visits 1 Evaluation Information Evaluation Date 05/05/23 PT-OP-B Current Condition Start: 05/05/23 15:26 Freq: Status: Active Protocol: Document 05/05/23 13:50 DCW (Rec: 05/05/23 15:48 DCW [id number]) Current Condition History of Current Condition Onset Date 12/31/22 Current Complaints R LE weakness, falls, neuromuscular dysfunction History of Current Condition Pt is a 73 year old female presenting with a complex recent medical history. Pt was brought to ED on 12/31/22 by EMS for nausea, vomiting, and generalized weakness. Was found to have cerebellar bleed and was transferred to [facility]. 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 Pt was at [facility] for 5 1/2 weeks, and then transferred to a rehab facility in [place] for another two months. Pt reports that at [facility], she was up walking around fairly well, but then developed severe nerve pain in her right leg. Found to have a large hematoma in her right low back/hip which ended up compressing right LE nerves. This resulted in loss of motor function and sensory imput from right leg. Pt admits she was miserable waiting for the pain to stop. Due to motor dysfunction in her right leg, was having increased difficulty walking, and spent her time in rehab in a wheelchair. Leg weakness resulted in two fals, both of which yusef her right knee. Pt has recently been working with home health, and is now doing well enough to progress to out-patient PT. Has been walking at home with a FWW, just obtained a 4WW, but not comfortable with it yet. Reports she can get herself to the kitchen, and furniture surf using the countertop and cabinets, and is able to dress and perform pericare independently. Still requires assistance with showering. Has friend helping as caregiver. Treatment Goals Patient/Caregiver Goals Pt's stated goals are to learn how to properly use 4WW, get right LE moving better, and walk on her own. PT-OP-C Subjective Start: 05/05/23 15:26 Freq: Status: Active Protocol: Document 11/12/23 09:51 SP (Rec: 11/12/23 10:34 SP [id number]) OP-PT Subjective Patient Comments Patient Comments Pt reports get occasional sharp burning, needly feel into legs and feels like her nerves aware waking up, numb inside R thigh but ankle and foot. She stated today is the first day drove here. She reported didn't formatively get cleared by physician, her and have been practicing out near [place] where roads are less traffic. She does doing gardening withsquatting, but has to hold onto walker braked for stabilily. PT-OP-E Functional Tests Start: 05/05/23 15:26 Freq: Status: Active Protocol: Document 10/25/23 11:15 DCW (Rec: 10/25/23 11:36 DCW [id number]) Functional Tests 6 Minute Walk Test Distance 628' Device Used SPC Comments 1.74 ft/sec 30 Second Sit to Stand Test Score x10 repetitions Comments minimal UE use PT-OP-G Mobility & Gait Start: 05/05/23 15:26 Freq: Status: Active Protocol: Document 10/25/23 11:15 DCW (Rec: 10/25/23 11:36 DCW [id number]) OP Gait Assessment Gait Gait Assistance Required: Standby Assistance Distance (Feet) 628 Assistive Devices Assistive Device Gait Belt,Straight Cane Comments Gait Comments Improving motor control of right quad during gait PT-OP-H Neuro Start: 05/05/23 15:26 Freq: Status: Active Protocol: Document 10/25/23 11:15 DCW (Rec: 10/25/23 11:36 DCW [id number]) Sensation Evaluation Gross Sensation Gross Sensation Right LE Impaired Sensation Description Numbness,Tingling PT-OP-M Strength Start: 05/05/23 15:26 Freq: Status: Active Protocol: Document 10/25/23 11:15 DCW (Rec: 10/25/23 11:36 DCW [id number]) Hip Strength Hip Manual Muscle Testing Right Flexion (L2) 3 Fair Extension (S1) 4+ Good+ Abduction 4- Good- Adduction 4- Good- Left Flexion (L2) 4+ Good+ Extension (S1) 4+ Good+ Abduction 4+ Good+ Adduction 4+ Good+ Knee Strength Knee Manual Muscle Testing Right Flexion (S2) 5 Normal Extension (L3) 2 Poor Left Flexion (S2) 5 Normal Extension (L3) 5 Normal Ankle/Foot Strength Ankle and Foot Manual Muscle Testing Right Dorsiflexion (L4) 4+ Good+ Plantarflexion (S1) 4+ Good+ Left Dorsiflexion (L4) 4+ Good+ Plantarflexion (S1) 4+ Good+ PT-OP-O Vestibular Start: 06/24/23 12:49 Freq: Status: Active Protocol: Document 06/24/23 12:00 DCW (Rec: 06/24/23 12:49 DCW [id number]) Vestibular Assessment Auditory Tests Zurita Test Within normal limits Rinne Test Negative Air Conduction Results Equal Visual Testing Smooth Pursuits Horizontal WNL Smooth Pursuits Vertical WNL Saccades Horizontal WNL Heave Test Positive Bilateral Thrust Head Positive Bilateral Spontaneous Nystagmus Negative Positional Testing Ortega-Hallpike Negative Left,Negative Right Rolling Test Negative Left,Negative Right PT-OP-Q Treatments Start: 05/05/23 15:26 Freq: Status: Active Protocol: Document 11/12/23 09:51 SP (Rec: 11/12/23 10:34 SP [id number]) Cardio Equipment Recumbent Bicycle Duration (Minutes) 6 Resistance 6 Seat Position 4 Other cued 52 PRMs, 13 somewhat hard GAURI scale Bicycle (Upright) Duration (Minutes) 4 Resistance 7 Seat Position 5 Other 63 RPMs- trialed for home use Gym Equipment Shuttle Recovery Unilateral Squats Details R & L Resistance 25# (navy) R, 50# L (1navy, 1 teal) Shuttle Recovery Platform Stable Reps/Time R 2x15, L x15 Shuttle Balance Red Details WBOS, NBOS, Staggered Comments w/head turns: EC WBOS 15 sec, NBOS 1 sec, stagger 3 sec Gait Training Gait Activity Cane Description Indoor ambulation Device Used SPC Level of Assistance CGA Surface Side-stepping, Retro Ambulation Treatment Focus balance, gait training with SPC Neuro Re-Education Treatment Balance Activities Ball/Cone transfers Details Ball/cone transfers Equipment 8 cones, 4 balls Comments Cross-body pick-up of balls from cones, no AD support. Mats with objects Details Uneven surfaces: mat over objects Equipment SPC Comments Fwd, step to patterning PT-OP-R Modalities Start: 05/10/23 13:44 Freq: Status: Active Protocol: Document 07/09/23 10:15 AB (Rec: 07/09/23 11:36 AB [id number]) Electric Stimulation Electric Stimulation [place]er Stimulation Body Location right quad Intensity 25 Ramp 0.5 Comments 10 on 30 off, performed quad sets, sidelying knee extension from ~90 deg flexion, LAQ AA as unable on initial trials PT-OP-T Assessment and Plan Start: 05/05/23 15:26 Freq: Status: Active Protocol: Document 11/12/23 09:51 SP (Rec: 11/12/23 10:34 SP [id number]) Physical Therapy Assessment Goals Three Impairment Pt currently demonstrating 0/5 MMT right quad Short Term Goal (STG) Pt to exhibit 2-/5 MMT or greater of right quad in order to improve ability to limit knee buckling. STG Duration Met Correction Goal (LTG) Pt to exhibit 3/5 MMT or greater of right quad in order to improve ability to limit knee buckling. LTG Duration 01/23/24 Two Impairment Pt ambulates 174' during Two Minute Walk Test using FWW Short Term Goal (STG) Pt to exhibit ability to complete full 6MWT with no rest breaks using LRAD, ambulating >600' in order to demonstrate improve gait speed and activity tolerance STG Duration Met Correction Goal (LTG) Pt to complete 6MWT with a gait speed >1.97 ft/sec, as this cutoff is an indication of further functional decline in older adults. LTG Duration 01/23/24 One Impairment Pt does not have an appropriate home exercise program Short Term Goal (STG) Pt to be independent and compliant with an appropriate HEP STG Duration 12/26/23 - improving Assessment Summary Assessment Pt was able to complete EC on shuttle balance today WBOS (4s ) 15 sec, stagger 3 sec. Education end tx not UE WB on 4WW to progress toward prepare SPC. She uses SPC in home. Cues allow calf stretch and COG more fwd on shuttle recovery to improve stabiltiy going up incline awareness CG- Min A needed. Physical Therapy Plan Frequency and Duration Frequency of Treatment 2x/Week Plan of Care Start Date 10/25/23 Plan of Care End Date 01/23/24 Therapeutic Interventions Therapeutic Interventions Balance Training,Coordination Training,Gait Training,Home Exercise Program,Joint Mobilizations,Manual Therapy, Neuromuscular Re-education, Patient/Caregiver Education, Self-Care/Home Management, Sensory Integration,Soft Tissue Mobilization, Therapeutic Activities, Therapeutic Exercises Next Visit Focus/Plan Next Note Type Treatment Note Next Visit Plan Continue functional RLE strengthening. SPC training POC: Balance Outdoor gait training with SPC , revisit step ups on scale, possibly stagger stance sit to stand
--- NOTE | 2023-11-16 16:25 | PT.OTN ---
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, right leg, subsequent encounter (11/16/23) Other specified postprocedural states (11/16/23) Physical Therapy Treatment Note PT-OP-A Visit Information Start: 05/05/23 15:26 Freq: Status: Active Protocol: Document 11/16/23 10:36 SW (Rec: 11/16/23 12:12 SW [id number]) Out-Patient Physical Therapy Visit Information Visit Information Visit Type Treatment Note Visit Note 09/12 Visit Start Time 10:31 Visit Stop Time 11:11 Visit Number 40 Number of FORECLOSURE SPECIALIST Visits 2 PT-OP-B Current Condition Start: 05/05/23 15:26 Freq: Status: Active Protocol: Document 05/05/23 13:50 DCW (Rec: 05/05/23 15:48 DCW [id number]) Current Condition History of Current Condition Onset Date 12/31/22 Current Complaints R LE weakness, falls, neuromuscular dysfunction History of Current Condition Pt is a 73 year old female presenting with a complex recent medical history. Pt was brought to ED on 12/31/22 by EMS for nausea, vomiting, and generalized weakness. Was found to have cerebellar bleed and was transferred to [facility]. 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 Pt was at [facility] for 5 1/2 weeks, and then transferred to a rehab facility in [place] for another two months. Pt reports that at [facility], she was up walking around fairly well, but then developed severe nerve pain in her right leg. Found to have a large hematoma in her right low back/hip which ended up compressing right LE nerves. This resulted in loss of motor function and sensory imput from right leg. Pt admits she was miserable waiting for the pain to stop. Due to motor dysfunction in her right leg, was having increased difficulty walking, and spent her time in rehab in a wheelchair. Leg weakness resulted in two fals, both of which yusef her right knee. Pt has recently been working with home health, and is now doing well enough to progress to out-patient PT. Has been walking at home with a FWW, just obtained a 4WW, but not comfortable with it yet. Reports she can get herself to the kitchen, and furniture surf using the countertop and cabinets, and is able to dress and perform pericare independently. Still requires assistance with showering. Has friend helping as caregiver. Treatment Goals Patient/Caregiver Goals Pt's stated goals are to learn how to properly use 4WW, get right LE moving better, and walk on her own. PT-OP-C Subjective Start: 05/05/23 15:26 Freq: Status: Active Protocol: Document 11/16/23 10:36 SW (Rec: 11/16/23 12:12 SW [id number]) OP-PT Subjective Patient Comments Patient Comments Pt reports buckling is under control. No set backs to report. Pt reports getting a recumbant bike at home for cardio. PT-OP-E Functional Tests Start: 05/05/23 15:26 Freq: Status: Active Protocol: Document 10/25/23 11:15 DCW (Rec: 10/25/23 11:36 DCW [id number]) Functional Tests 6 Minute Walk Test Distance 628' Device Used SPC Comments 1.74 ft/sec 30 Second Sit to Stand Test Score x10 repetitions Comments minimal UE use PT-OP-G Mobility & Gait Start: 05/05/23 15:26 Freq: Status: Active Protocol: Document 10/25/23 11:15 DCW (Rec: 10/25/23 11:36 DCW [id number]) OP Gait Assessment Gait Gait Assistance Required: Standby Assistance Distance (Feet) 628 Assistive Devices Assistive Device Gait Belt,Straight Cane Comments Gait Comments Improving motor control of right quad during gait PT-OP-H Neuro Start: 05/05/23 15:26 Freq: Status: Active Protocol: Document 10/25/23 11:15 DCW (Rec: 10/25/23 11:36 DCW [id number]) Sensation Evaluation Gross Sensation Gross Sensation Right LE Impaired Sensation Description Numbness,Tingling PT-OP-M Strength Start: 05/05/23 15:26 Freq: Status: Active Protocol: Document 10/25/23 11:15 DCW (Rec: 10/25/23 11:36 DCW [id number]) Hip Strength Hip Manual Muscle Testing Right Flexion (L2) 3 Fair Extension (S1) 4+ Good+ Abduction 4- Good- Adduction 4- Good- Left Flexion (L2) 4+ Good+ Extension (S1) 4+ Good+ Abduction 4+ Good+ Adduction 4+ Good+ Knee Strength Knee Manual Muscle Testing Right Flexion (S2) 5 Normal Extension (L3) 2 Poor Left Flexion (S2) 5 Normal Extension (L3) 5 Normal Ankle/Foot Strength Ankle and Foot Manual Muscle Testing Right Dorsiflexion (L4) 4+ Good+ Plantarflexion (S1) 4+ Good+ Left Dorsiflexion (L4) 4+ Good+ Plantarflexion (S1) 4+ Good+ PT-OP-O Vestibular Start: 06/24/23 12:49 Freq: Status: Active Protocol: Document 06/24/23 12:00 DCW (Rec: 06/24/23 12:49 DCW [id number]) Vestibular Assessment Auditory Tests Zurita Test Within normal limits Rinne Test Negative Air Conduction Results Equal Visual Testing Smooth Pursuits Horizontal WNL Smooth Pursuits Vertical WNL Saccades Horizontal WNL Heave Test Positive Bilateral Thrust Head Positive Bilateral Spontaneous Nystagmus Negative Positional Testing Arrey-Hallpike Negative Left,Negative Right Rolling Test Negative Left,Negative Right PT-OP-Q Treatments Start: 05/05/23 15:26 Freq: Status: Active Protocol: Document 11/16/23 10:36 SW (Rec: 11/16/23 12:12 SW [id number]) Cardio Equipment Recumbent Bicycle Duration (Minutes) 7 Resistance 6 Seat Position 4 Other cued 52 PRMs, 13 somewhat hard GAURI scale Gym Equipment Shuttle Recovery Unilateral Squats Details R & L Resistance 25# (navy) R, 50# L (1navy, 1 teal) Shuttle Recovery Platform Stable Reps/Time R x15, Lx15 , compensation on RLE Shuttle Balance Red Details WBOS, NBOS, Staggered Comments w/head turns: EC WBOS 19, NBOS 1 sec, stagger- right leg posterior, cues for slight bend in R knee to activate quad Therapeutic Exercises Sitting Exercises LAQ Sitting Exercise Name LAQ Side right Comments seated all the wal back in chair to block from hip compensation Standing Exercises step up Standing Exercise Name step up/down Side right Equipment Used 5 step Reps/Minutes 3 x 10 Comments cues for eccentric control, tactile cues to prevent hyperextension Gait Training Gait Activity Cane Description Indoor ambulation Device Used SPC Level of Assistance CGA Surface tile/carpet Treatment Focus balance, gait training with SPC for mechanics PT-OP-R Modalities Start: 05/10/23 13:44 Freq: Status: Active Protocol: Document 07/09/23 10:15 AB (Rec: 07/09/23 11:36 AB [id number]) Electric Stimulation Electric Stimulation [place]in Stimulation Body Location right quad Intensity 25 Ramp 0.5 Comments 10 on 30 off, performed quad sets, sidelying knee extension from ~90 deg flexion, LAQ AA as unable on initial trials PT-OP-T Assessment and Plan Start: 05/05/23 15:26 Freq: Status: Active Protocol: Document 11/16/23 10:36 SW (Rec: 11/16/23 12:12 SW [id number]) Physical Therapy Assessment Goals Three Impairment Pt currently demonstrating 0/5 MMT right quad Short Term Goal (STG) Pt to exhibit 2-/5 MMT or greater of right quad in order to improve ability to limit knee buckling. STG Duration Met Senior Living Goal (LTG) Pt to exhibit 3/5 MMT or greater of right quad in order to improve ability to limit knee buckling. LTG Duration 01/23/24 Two Impairment Pt ambulates 174' during Two Minute Walk Test using FWW Short Term Goal (STG) Pt to exhibit ability to complete full 6MWT with no rest breaks using LRAD, ambulating >600' in order to demonstrate improve gait speed and activity tolerance STG Duration Met Senior Living Goal (LTG) Pt to complete 6MWT with a gait speed >1.97 ft/sec, as this cutoff is an indication of further functional decline in older adults. LTG Duration 01/23/24 One Impairment Pt does not have an appropriate home exercise program Short Term Goal (STG) Pt to be independent and compliant with an appropriate HEP STG Duration 12/26/23 - improving Assessment Summary Assessment Pt challenged with leg press today on RLE, heavy compensation from hip muscles, cues for decreased range. Instructed pt in LAQ for HEP, pt seated against stable back of chair to block from hip extension compensation, pt able to extend knee ~30 degrees in seated position. Physical Therapy Plan Frequency and Duration Frequency of Treatment 2x/Week Plan of Care Start Date 10/25/23 Plan of Care End Date 01/23/24 Therapeutic Interventions Therapeutic Interventions Balance Training,Coordination Training,Gait Training,Home Exercise Program,Joint Mobilizations,Manual Therapy, Neuromuscular Re-education, Patient/Caregiver Education, Self-Care/Home Management, Sensory Integration,Soft Tissue Mobilization, Therapeutic Activities, Therapeutic Exercises Next Visit Focus/Plan Next Note Type Treatment Note Next Visit Plan Continue functional RLE strengthening. SPC training POC: Balance Outdoor gait training with SPC , revisit step ups on scale, possibly stagger stance sit to stand
--- NOTE | 2023-11-18 12:23 | PT.OTN ---
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, right leg, subsequent encounter (11/18/23) Other specified postprocedural states (11/18/23) Physical Therapy Treatment Note PT-OP-A Visit Information Start: 05/05/23 15:26 Freq: Status: Active Protocol: Document 11/18/23 10:34 SW (Rec: 11/18/23 11:15 SW [id number]) Out-Patient Physical Therapy Visit Information Visit Information Visit Type Treatment Note Visit Note 10/12 Visit Start Time 10:31 Visit Stop Time 11:11 Visit Number 52 Number of CHIEF GAUGER Visits 3 PT-OP-B Current Condition Start: 05/05/23 15:26 Freq: Status: Active Protocol: Document 05/05/23 13:50 DCW (Rec: 05/05/23 15:48 DCW [id number]) Current Condition History of Current Condition Onset Date 12/31/22 Current Complaints R LE weakness, falls, neuromuscular dysfunction History of Current Condition Pt is a 73 year old female presenting with a complex recent medical history. Pt was brought to ED on 12/31/22 by EMS for nausea, vomiting, and generalized weakness. Was found to have cerebellar bleed and was transferred to [facility]. 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 Pt was at [facility] for 5 1/2 weeks, and then transferred to a rehab facility in [place] for another two months. Pt reports that at [facility], she was up walking around fairly well, but then developed severe nerve pain in her right leg. Found to have a large hematoma in her right low back/hip which ended up compressing right LE nerves. This resulted in loss of motor function and sensory imput from right leg. Pt admits she was miserable waiting for the pain to stop. Due to motor dysfunction in her right leg, was having increased difficulty walking, and spent her time in rehab in a wheelchair. Leg weakness resulted in two fals, both of which yusef her right knee. Pt has recently been working with home health, and is now doing well enough to progress to out-patient PT. Has been walking at home with a FWW, just obtained a 4WW, but not comfortable with it yet. Reports she can get herself to the kitchen, and furniture surf using the countertop and cabinets, and is able to dress and perform pericare independently. Still requires assistance with showering. Has friend helping as caregiver. Treatment Goals Patient/Caregiver Goals Pt's stated goals are to learn how to properly use 4WW, get right LE moving better, and walk on her own. PT-OP-C Subjective Start: 05/05/23 15:26 Freq: Status: Active Protocol: Document 11/18/23 10:34 SW (Rec: 11/18/23 11:15 SW [id number]) OP-PT Subjective Patient Comments Patient Comments Pt reports able to try out new bike, felt like the right leg worked more with the left leg being more tired from exercise and gardening. PT-OP-E Functional Tests Start: 05/05/23 15:26 Freq: Status: Active Protocol: Document 10/25/23 11:15 DCW (Rec: 10/25/23 11:36 DCW [id number]) Functional Tests 6 Minute Walk Test Distance 628' Device Used SPC Comments 1.74 ft/sec 30 Second Sit to Stand Test Score x10 repetitions Comments minimal UE use PT-OP-G Mobility & Gait Start: 05/05/23 15:26 Freq: Status: Active Protocol: Document 10/25/23 11:15 DCW (Rec: 10/25/23 11:36 DCW [id number]) OP Gait Assessment Gait Gait Assistance Required: Standby Assistance Distance (Feet) 628 Assistive Devices Assistive Device Gait Belt,Straight Cane Comments Gait Comments Improving motor control of right quad during gait PT-OP-H Neuro Start: 05/05/23 15:26 Freq: Status: Active Protocol: Document 10/25/23 11:15 DCW (Rec: 10/25/23 11:36 DCW [id number]) Sensation Evaluation Gross Sensation Gross Sensation Right LE Impaired Sensation Description Numbness,Tingling PT-OP-M Strength Start: 05/05/23 15:26 Freq: Status: Active Protocol: Document 10/25/23 11:15 DCW (Rec: 10/25/23 11:36 DCW [id number]) Hip Strength Hip Manual Muscle Testing Right Flexion (L2) 3 Fair Extension (S1) 4+ Good+ Abduction 4- Good- Adduction 4- Good- Left Flexion (L2) 4+ Good+ Extension (S1) 4+ Good+ Abduction 4+ Good+ Adduction 4+ Good+ Knee Strength Knee Manual Muscle Testing Right Flexion (S2) 5 Normal Extension (L3) 2 Poor Left Flexion (S2) 5 Normal Extension (L3) 5 Normal Ankle/Foot Strength Ankle and Foot Manual Muscle Testing Right Dorsiflexion (L4) 4+ Good+ Plantarflexion (S1) 4+ Good+ Left Dorsiflexion (L4) 4+ Good+ Plantarflexion (S1) 4+ Good+ PT-OP-O Vestibular Start: 06/24/23 12:49 Freq: Status: Active Protocol: Document 06/24/23 12:00 DCW (Rec: 06/24/23 12:49 DCW [id number]) Vestibular Assessment Auditory Tests Zurita Test Within normal limits Rinne Test Negative Air Conduction Results Equal Visual Testing Smooth Pursuits Horizontal WNL Smooth Pursuits Vertical WNL Saccades Horizontal WNL Heave Test Positive Bilateral Thrust Head Positive Bilateral Spontaneous Nystagmus Negative Positional Testing Ortega-Hallpike Negative Left,Negative Right Rolling Test Negative Left,Negative Right PT-OP-Q Treatments Start: 05/05/23 15:26 Freq: Status: Active Protocol: Document 11/18/23 10:34 SW (Rec: 11/18/23 11:15 SW [id number]) Cardio Equipment Recumbent Elliptical (Biodex) Duration (Minutes) 7 Resistance 8 Seat Position 9 Therapeutic Exercises Sitting Exercises LAQ Sitting Exercise Name Ball kicks Side right Comments back into chair to block hip ext STS Sitting Exercise Name chair Reps/Minutes 2X10, x10 Comments right foot back stagger stance , normal stance Neuro Re-Education Treatment Balance Activities Ball/Cone transfers Details Ball/cone transfers Equipment 8 cones, 4 balls Comments Cross-body pick-up of balls from cones, no AD support. side stepping without UE use Details Hurdles Surface carpet Equipment SPC, gait bel Comments cues to maintain cane and RLE contact at the same time PT-OP-R Modalities Start: 05/10/23 13:44 Freq: Status: Active Protocol: Document 07/09/23 10:15 AB (Rec: 07/09/23 11:36 AB [id number]) Electric Stimulation Electric Stimulation [place] Stimulation Body Location right quad Intensity 25 Ramp 0.5 Comments 10 on 30 off, performed quad sets, sidelying knee extension from ~90 deg flexion, LAQ AA as unable on initial trials PT-OP-T Assessment and Plan Start: 05/05/23 15:26 Freq: Status: Active Protocol: Document 11/18/23 10:34 SW (Rec: 11/18/23 11:15 [id number]) Physical Therapy Assessment Goals Three Impairment Pt currently demonstrating 0/5 MMT right quad Short Term Goal (STG) Pt to exhibit 2-/5 MMT or greater of right quad in order to improve ability to limit knee buckling. STG Duration Met Reaming Press Operator Goal (LTG) Pt to exhibit 3/5 MMT or greater of right quad in order to improve ability to limit knee buckling. LTG Duration 01/23/24 Two Impairment Pt ambulates 174' during Two Minute Walk Test using FWW Short Term Goal (STG) Pt to exhibit ability to complete full 6MWT with no rest breaks using LRAD, ambulating >600' in order to demonstrate improve gait speed and activity tolerance STG Duration Met Reaming Press Operator Goal (LTG) Pt to complete 6MWT with a gait speed >1.97 ft/sec, as this cutoff is an indication of further functional decline in older adults. LTG Duration 01/23/24 One Impairment Pt does not have an appropriate home exercise program Short Term Goal (STG) Pt to be independent and compliant with an appropriate HEP STG Duration 12/26/23 - improving Assessment Summary Assessment Pt challenged today with balance activities, slow pacing with hesitancy on unven surface ambulation, verbal cues to maintain forward ambulation, tendency for LLE dominance. Initiated side stepping over hurdles this session with SPC, cued pt to maintain contact of SPC and RLE on the ground simultaneously. Physical Therapy Plan Frequency and Duration Frequency of Treatment 2x/Week Plan of Care Start Date 10/25/23 Plan of Care End Date 01/23/24 Therapeutic Interventions Therapeutic Interventions Balance Training,Coordination Training,Gait Training,Home Exercise Program,Joint Mobilizations,Manual Therapy, Neuromuscular Re-education, Patient/Caregiver Education, Self-Care/Home Management, Sensory Integration,Soft Tissue Mobilization, Therapeutic Activities, Therapeutic Exercises Next Visit Focus/Plan Next Note Type Treatment Note Next Visit Plan Continue functional RLE strengthening. SPC training POC: Balance Outdoor gait training with SPC , revisit step ups on scale, possibly stagger stance sit to stand
--- NOTE | 2023-11-23 11:17 | PT.OTN ---
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, right leg, subsequent encounter (11/23/23) Other specified postprocedural states (11/23/23) Physical Therapy Treatment Note PT-OP-A Visit Information Start: 05/05/23 15:26 Freq: Status: Active Protocol: Document 11/23/23 10:35 DCW (Rec: 11/23/23 11:17 DCW [id number]) Out-Patient Physical Therapy Visit Information Visit Information Visit Type Treatment Note Visit Note 11/12 Visit Start Time 10:35 Visit Stop Time 11:15 Visit Number 53 Number of DIESEL TECHNOLOGY INSTRUCTOR Visits 0 Evaluation Information Evaluation Date 05/05/23 PT-OP-B Current Condition Start: 05/05/23 15:26 Freq: Status: Active Protocol: Document 05/05/23 13:50 DCW (Rec: 05/05/23 15:48 DCW [id number]) Current Condition History of Current Condition Onset Date 12/31/22 Current Complaints R LE weakness, falls, neuromuscular dysfunction History of Current Condition Pt is a 73 year old female presenting with a complex recent medical history. Pt was brought to ED on 12/31/22 by EMS for nausea, vomiting, and generalized weakness. Was found to have cerebellar bleed and was transferred to [facility]. 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 Pt was at [facility] for 5 1/2 weeks, and then transferred to a rehab facility in [place] for another two months. Pt reports that at [facility], she was up walking around fairly well, but then developed severe nerve pain in her right leg. Found to have a large hematoma in her right low back/hip which ended up compressing right LE nerves. This resulted in loss of motor function and sensory imput from right leg. Pt admits she was miserable waiting for the pain to stop. Due to motor dysfunction in her right leg, was having increased difficulty walking, and spent her time in rehab in a wheelchair. Leg weakness resulted in two fals, both of which yusef her right knee. Pt has recently been working with home health, and is now doing well enough to progress to out-patient PT. Has been walking at home with a FWW, just obtained a 4WW, but not comfortable with it yet. Reports she can get herself to the kitchen, and furniture surf using the countertop and cabinets, and is able to dress and perform pericare independently. Still requires assistance with showering. Has friend helping as caregiver. Treatment Goals Patient/Caregiver Goals Pt's stated goals are to learn how to properly use 4WW, get right LE moving better, and walk on her own. PT-OP-C Subjective Start: 05/05/23 15:26 Freq: Status: Active Protocol: Document 11/23/23 10:35 DCW (Rec: 11/23/23 11:17 DCW [id number]) OP-PT Subjective Patient Comments Patient Comments Pt notes she has been having excruciating pain in the TMJ PT-OP-E Functional Tests Start: 05/05/23 15:26 Freq: Status: Active Protocol: Document 10/25/23 11:15 DCW (Rec: 10/25/23 11:36 DCW [id number]) Functional Tests 6 Minute Walk Test Distance 628' Device Used SPC Comments 1.74 ft/sec 30 Second Sit to Stand Test Score x10 repetitions Comments minimal UE use PT-OP-G Mobility & Gait Start: 05/05/23 15:26 Freq: Status: Active Protocol: Document 10/25/23 11:15 DCW (Rec: 10/25/23 11:36 DCW [id number]) OP Gait Assessment Gait Gait Assistance Required: Standby Assistance Distance (Feet) 628 Assistive Devices Assistive Device Gait Belt,Straight Cane Comments Gait Comments Improving motor control of right quad during gait PT-OP-H Neuro Start: 05/05/23 15:26 Freq: Status: Active Protocol: Document 10/25/23 11:15 DCW (Rec: 10/25/23 11:36 DCW [id number]) Sensation Evaluation Gross Sensation Gross Sensation Right LE Impaired Sensation Description Numbness,Tingling PT-OP-M Strength Start: 05/05/23 15:26 Freq: Status: Active Protocol: Document 10/25/23 11:15 DCW (Rec: 10/25/23 11:36 DCW [id number]) Hip Strength Hip Manual Muscle Testing Right Flexion (L2) 3 Fair Extension (S1) 4+ Good+ Abduction 4- Good- Adduction 4- Good- Left Flexion (L2) 4+ Good+ Extension (S1) 4+ Good+ Abduction 4+ Good+ Adduction 4+ Good+ Knee Strength Knee Manual Muscle Testing Right Flexion (S2) 5 Normal Extension (L3) 2 Poor Left Flexion (S2) 5 Normal Extension (L3) 5 Normal Ankle/Foot Strength Ankle and Foot Manual Muscle Testing Right Dorsiflexion (L4) 4+ Good+ Plantarflexion (S1) 4+ Good+ Left Dorsiflexion (L4) 4+ Good+ Plantarflexion (S1) 4+ Good+ PT-OP-O Vestibular Start: 06/24/23 12:49 Freq: Status: Active Protocol: Document 06/24/23 12:00 DCW (Rec: 06/24/23 12:49 DCW [id number]) Vestibular Assessment Auditory Tests Zurita Test Within normal limits Rinne Test Negative Air Conduction Results Equal Visual Testing Smooth Pursuits Horizontal WNL Smooth Pursuits Vertical WNL Saccades Horizontal WNL Heave Test Positive Bilateral Thrust Head Positive Bilateral Spontaneous Nystagmus Negative Positional Testing Ortega-Hallpike Negative Left,Negative Right Rolling Test Negative Left,Negative Right PT-OP-Q Treatments Start: 05/05/23 15:26 Freq: Status: Active Protocol: Document 11/23/23 10:35 DCW (Rec: 11/23/23 11:17 DCW [id number]) Cardio Equipment Recumbent Elliptical (Biodex) Duration (Minutes) 6 Resistance 8 Seat Position 9 Gym Equipment Shuttle Recovery Bilateral Squats Resistance 75# (Three new) Shuttle Recovery Platform Stable Unilateral Squats Details R Resistance 25# (navy) Shuttle Recovery Platform Stable Shuttle Balance Red Details WBOS, NBOS, Staggered Gait Training Gait Activity /s AD Description without device Level of Assistance CGA Comments Fwd, Bkwd, side stepping PT-OP-R Modalities Start: 05/10/23 13:44 Freq: Status: Active Protocol: Document 07/09/23 10:15 AB (Rec: 07/09/23 11:36 AB [id number]) Electric Stimulation Electric Stimulation [place] Stimulation Body Location right quad Intensity 25 Ramp 0.5 Comments 10 on 30 off, performed quad sets, sidelying knee extension from ~90 deg flexion, LAQ AA as unable on initial trials PT-OP-T Assessment and Plan Start: 05/05/23 15:26 Freq: Status: Active Protocol: Document 11/23/23 10:35 DCW (Rec: 11/23/23 11:17 DCW [id number]) Physical Therapy Assessment Impairments Impairments Balance,Functional Activities, Functional Mobility,Pain,ROM, Sensation,Soft Tissue Mobility ,Strength,Tone,Transfers Goals Three Impairment Pt currently demonstrating 0/5 MMT right quad Short Term Goal (STG) Pt to exhibit 2-/5 MMT or greater of right quad in order to improve ability to limit knee buckling. STG Duration Met Rail Track Maintainer Goal (LTG) Pt to exhibit 3/5 MMT or greater of right quad in order to improve ability to limit knee buckling. LTG Duration 01/23/24 Two Impairment Pt ambulates 174' during Two Minute Walk Test using FWW Short Term Goal (STG) Pt to exhibit ability to complete full 6MWT with no rest breaks using LRAD, ambulating >600' in order to demonstrate improve gait speed and activity tolerance STG Duration Met Chcf Goal (LTG) Pt to complete 6MWT with a gait speed >1.97 ft/sec, as this cutoff is an indication of further functional decline in older adults. LTG Duration 01/23/24 One Impairment Pt does not have an appropriate home exercise program Short Term Goal (STG) Pt to be independent and compliant with an appropriate HEP STG Duration 12/26/23 - improving Assessment Summary Assessment Pt showing improvement with quad control during gait, less compensatory hip activation. Continuing to focus on quad strength, increased activity tolerance, and gait/balance Physical Therapy Plan Frequency and Duration Frequency of Treatment 2x/Week Plan of Care Start Date 10/25/23 Plan of Care End Date 01/23/24 Therapeutic Interventions Therapeutic Interventions Balance Training,Coordination Training,Gait Training,Home Exercise Program,Joint Mobilizations,Manual Therapy, Neuromuscular Re-education, Patient/Caregiver Education, Self-Care/Home Management, Sensory Integration,Soft Tissue Mobilization, Therapeutic Activities, Therapeutic Exercises Next Visit Focus/Plan Next Note Type Treatment Note Next Visit Plan Continue functional RLE strengthening. SPC training POC: Balance Outdoor gait training with SPC , revisit step ups on scale, possibly stagger stance sit to stand
--- NOTE | 2023-11-24 16:52 | PT.OTN ---
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, right leg, subsequent encounter (11/24/23) Other specified postprocedural states (11/24/23) Physical Therapy Treatment Note PT-OP-A Visit Information Start: 05/05/23 15:26 Freq: Status: Active Protocol: Document 11/24/23 14:34 AB (Rec: 11/24/23 16:51 AB [id number]) Out-Patient Physical Therapy Visit Information Visit Information Visit Type Treatment Note Visit Note 12/13 Visit Start Time 14:34 Visit Stop Time 15:33 Visit Number 54 Number of WINE CELLAR WORKER Visits 1 Evaluation Information Evaluation Date 05/05/23 PT-OP-B Current Condition Start: 05/05/23 15:26 Freq: Status: Active Protocol: Document 05/05/23 13:50 DCW (Rec: 05/05/23 15:48 DCW [id number]) Current Condition History of Current Condition Onset Date 12/31/22 Current Complaints R LE weakness, falls, neuromuscular dysfunction History of Current Condition Pt is a 73 year old female presenting with a complex recent medical history. Pt was brought to ED on 12/31/22 by EMS for nausea, vomiting, and generalized weakness. Was found to have cerebellar bleed and was transferred to [facility]. 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 Pt was at [facility] for 5 1/2 weeks, and then transferred to a rehab facility in [place] for another two months. Pt reports that at [facility], she was up walking around fairly well, but then developed severe nerve pain in her right leg. Found to have a large hematoma in her right low back/hip which ended up compressing right LE nerves. This resulted in loss of motor function and sensory imput from right leg. Pt admits she was miserable waiting for the pain to stop. Due to motor dysfunction in her right leg, was having increased difficulty walking, and spent her time in rehab in a wheelchair. Leg weakness resulted in two fals, both of which yusef her right knee. Pt has recently been working with home health, and is now doing well enough to progress to out-patient PT. Has been walking at home with a FWW, just obtained a 4WW, but not comfortable with it yet. Reports she can get herself to the kitchen, and furniture surf using the countertop and cabinets, and is able to dress and perform pericare independently. Still requires assistance with showering. Has friend helping as caregiver. Treatment Goals Patient/Caregiver Goals Pt's stated goals are to learn how to properly use 4WW, get right LE moving better, and walk on her own. PT-OP-C Subjective Start: 05/05/23 15:26 Freq: Status: Active Protocol: Document 11/24/23 14:34 AB (Rec: 11/24/23 16:51 AB [id number]) OP-PT Subjective Patient Comments Patient Comments Pt reports working on appt for TMJ MD. Tahmina reports using SPC in home and comments she has not made MD aware, SLS right LE 4 sec without UE use start of session. PT-OP-E Functional Tests Start: 05/05/23 15:26 Freq: Status: Active Protocol: Document 10/25/23 11:15 DCW (Rec: 10/25/23 11:36 DCW [id number]) Functional Tests 6 Minute Walk Test Distance 628' Device Used SPC Comments 1.74 ft/sec 30 Second Sit to Stand Test Score x10 repetitions Comments minimal UE use PT-OP-G Mobility & Gait Start: 05/05/23 15:26 Freq: Status: Active Protocol: Document 10/25/23 11:15 DCW (Rec: 10/25/23 11:36 DCW [id number]) OP Gait Assessment Gait Gait Assistance Required: Standby Assistance Distance (Feet) 628 Assistive Devices Assistive Device Gait Belt,Straight Cane Comments Gait Comments Improving motor control of right quad during gait PT-OP-H Neuro Start: 05/05/23 15:26 Freq: Status: Active Protocol: Document 10/25/23 11:15 DCW (Rec: 10/25/23 11:36 DCW [id number]) Sensation Evaluation Gross Sensation Gross Sensation Right LE Impaired Sensation Description Numbness,Tingling PT-OP-M Strength Start: 05/05/23 15:26 Freq: Status: Active Protocol: Document 10/25/23 11:15 DCW (Rec: 10/25/23 11:36 DCW [id number]) Hip Strength Hip Manual Muscle Testing Right Flexion (L2) 3 Fair Extension (S1) 4+ Good+ Abduction 4- Good- Adduction 4- Good- Left Flexion (L2) 4+ Good+ Extension (S1) 4+ Good+ Abduction 4+ Good+ Adduction 4+ Good+ Knee Strength Knee Manual Muscle Testing Right Flexion (S2) 5 Normal Extension (L3) 2 Poor Left Flexion (S2) 5 Normal Extension (L3) 5 Normal Ankle/Foot Strength Ankle and Foot Manual Muscle Testing Right Dorsiflexion (L4) 4+ Good+ Plantarflexion (S1) 4+ Good+ Left Dorsiflexion (L4) 4+ Good+ Plantarflexion (S1) 4+ Good+ PT-OP-O Vestibular Start: 06/24/23 12:49 Freq: Status: Active Protocol: Document 06/24/23 12:00 DCW (Rec: 06/24/23 12:49 PAW [id number]) Vestibular Assessment Auditory Tests [place] Test Within normal limits Rinne Test Negative Air Conduction Results Equal Visual Testing Smooth Pursuits Horizontal WNL Smooth Pursuits Vertical WNL Saccades Horizontal WNL Heave Test Positive Bilateral Thrust Head Positive Bilateral Spontaneous Nystagmus Negative Positional Testing [place]-Hallpike Negative Left,Negative Right Rolling Test Negative Left,Negative Right PT-OP-Q Treatments Start: 05/05/23 15:26 Freq: Status: Active Protocol: Document 11/24/23 14:34 AB (Rec: 11/24/23 16:51 AB [id number]) Gym Equipment Shuttle Balance Red Details NBOS, Staggered Comments with visual scanning and head turns, CGA Therapeutic Exercises Sitting Exercises seated hip abduction Sitting Exercise Name HEP Equipment Used level 2 teal band Reps/Minutes one minute X 1 then 2X 15 Standing Exercises side stepping with band Standing Exercise Name using parallel bars Equipment Used leve 3 green band Reps/Minutes 10 feet X 2 left and right lateral step up Standing Exercise Name UE use Side right Equipment Used 4 inch step Reps/Minutes X10 Comments CGA, very light UE use SLS Side right Reps/Minutes X2 without UE use TKE Standing Exercise Name TKE Side right Resistance with level 2 band and ball Reps/Minutes band X 15 ball 2 min Comments holding walker Neuro Re-Education Treatment Balance Activities Hurdles Reps/Duration 6 hurdles on and off mat Comments CGA to very minimal assist Tandem Details Tandem Stance Equipment // bars Reps/Duration X8 10 feet fwd and retro Comments hands above bars stepping, CGA visual scaning with fwd only PT-OP-R Modalities Start: 05/10/23 13:44 Freq: Status: Active Protocol: Document 07/09/23 10:15 AB (Rec: 07/09/23 11:36 AB [id number]) Electric Stimulation Electric Stimulation [place] Stimulation Body Location right quad Intensity 25 Ramp 0.5 Comments 10 on 30 off, performed quad sets, sidelying knee extension from ~90 deg flexion, LAQ AA as unable on initial trials PT-OP-T Assessment and Plan Start: 05/05/23 15:26 Freq: Status: Active Protocol: Document 11/24/23 14:34 AB (Rec: 11/24/23 16:51 AB [id number]) Physical Therapy Assessment Goals Three Impairment Pt currently demonstrating 0/5 MMT right quad Short Term Goal (STG) Pt to exhibit 2-/5 MMT or greater of right quad in order to improve ability to limit knee buckling. STG Duration Met [facility] Goal (LTG) Pt to exhibit 3/5 MMT or greater of right quad in order to improve ability to limit knee buckling. LTG Duration 01/23/24 Two Impairment Pt ambulates 174' during Two Minute Walk Test using FWW Short Term Goal (STG) Pt to exhibit ability to complete full 6MWT with no rest breaks using LRAD, ambulating >600' in order to demonstrate improve gait speed and activity tolerance STG Duration Met [facility] Goal (LTG) Pt to complete 6MWT with a gait speed >1.97 ft/sec, as this cutoff is an indication of further functional decline in older adults. LTG Duration 01/23/24 One Impairment Pt does not have an appropriate home exercise program Short Term Goal (STG) Pt to be independent and compliant with an appropriate HEP STG Duration 12/26/23 - improving Assessment Summary Assessment SLS right LE increased to 8+ sec without UE use post glute med activation. Physical Therapy Plan Frequency and Duration Frequency of Treatment 2x/Week Plan of Care Start Date 10/25/23 Plan of Care End Date 01/23/24 Next Visit Focus/Plan Next Note Type Treatment Note Next Visit Plan Continue functional RLE strengthening. SPC training POC: Balance Outdoor gait training with SPC , revisit step ups on scale, possibly stagger stance sit to stand
--- NOTE | 2023-12-03 12:17 | PT.OTN ---
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, right leg, subsequent encounter (12/03/23) Other specified postprocedural states (12/03/23) Physical Therapy Treatment Note PT-OP-A Visit Information Start: 05/05/23 15:26 Freq: Status: Active Protocol: Document 12/03/23 11:19 AB (Rec: 12/03/23 12:14 AB [id number]) Out-Patient Physical Therapy Visit Information Visit Information Visit Type Treatment Note Visit Start Time 11:19 Visit Stop Time 12:05 Visit Number 55 Number of PRENATAL GENETIC COUNSELOR Visits 2 Evaluation Information Evaluation Date 05/05/23 PT-OP-B Current Condition Start: 05/05/23 15:26 Freq: Status: Active Protocol: Document 05/05/23 13:50 DCW (Rec: 05/05/23 15:48 DCW [id number]) Current Condition History of Current Condition Onset Date 12/31/22 Current Complaints R LE weakness, falls, neuromuscular dysfunction History of Current Condition Pt is a 73 year old female presenting with a complex recent medical history. Pt was brought to ED on 12/31/22 by EMS for nausea, vomiting, and generalized weakness. Was found to have cerebellar bleed and was transferred to [facility]. 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 Pt was at [facility] for 5 1/2 weeks, and then transferred to a rehab facility in [place] for another two months. Pt reports that at [facility], she was up walking around fairly well, but then developed severe nerve pain in her right leg. Found to have a large hematoma in her right low back/hip which ended up compressing right LE nerves. This resulted in loss of motor function and sensory imput from right leg. Pt admits she was miserable waiting for the pain to stop. Due to motor dysfunction in her right leg, was having increased difficulty walking, and spent her time in rehab in a wheelchair. Leg weakness resulted in two fals, both of which yusef her right knee. Pt has recently been working with home health, and is now doing well enough to progress to out-patient PT. Has been walking at home with a FWW, just obtained a 4WW, but not comfortable with it yet. Reports she can get herself to the kitchen, and furniture surf using the countertop and cabinets, and is able to dress and perform pericare independently. Still requires assistance with showering. Has friend helping as caregiver. Treatment Goals Patient/Caregiver Goals Pt's stated goals are to learn how to properly use 4WW, get right LE moving better, and walk on her own. PT-OP-C Subjective Start: 05/05/23 15:26 Freq: Status: Active Protocol: Document 12/03/23 11:19 AB (Rec: 12/03/23 12:14 AB [id number]) OP-PT Subjective Patient Comments Patient Comments Patient reports HEP was limited due to Covid, comments she has been able to do some in the last few days PT-OP-E Functional Tests Start: 05/05/23 15:26 Freq: Status: Active Protocol: Document 12/03/23 11:18 AB (Rec: 12/03/23 12:16 AB [id number]) Functional Tests 6 Minute Walk Test Distance 645 Device Used SPC Comments Patient had Covid over past week, comments feeling sweaty start of tests PT-OP-G Mobility & Gait Start: 05/05/23 15:26 Freq: Status: Active Protocol: Document 10/25/23 11:15 DCW (Rec: 10/25/23 11:36 DCW [id number]) OP Gait Assessment Gait Gait Assistance Required: Standby Assistance Distance (Feet) 628 Assistive Devices Assistive Device Gait Belt,Straight Cane Comments Gait Comments Improving motor control of right quad during gait PT-OP-H Neuro Start: 05/05/23 15:26 Freq: Status: Active Protocol: Document 10/25/23 11:15 DCW (Rec: 10/25/23 11:36 DCW [id number]) Sensation Evaluation Gross Sensation Gross Sensation Right LE Impaired Sensation Description Numbness,Tingling PT-OP-M Strength Start: 05/05/23 15:26 Freq: Status: Active Protocol: Document 10/25/23 11:15 DCW (Rec: 10/25/23 11:36 DCW [id number]) Hip Strength Hip Manual Muscle Testing Right Flexion (L2) 3 Fair Extension (S1) 4+ Good+ Abduction 4- Good- Adduction 4- Good- Left Flexion (L2) 4+ Good+ Extension (S1) 4+ Good+ Abduction 4+ Good+ Adduction 4+ Good+ Knee Strength Knee Manual Muscle Testing Right Flexion (S2) 5 Normal Extension (L3) 2 Poor Left Flexion (S2) 5 Normal Extension (L3) 5 Normal Ankle/Foot Strength Ankle and Foot Manual Muscle Testing Right Dorsiflexion (L4) 4+ Good+ Plantarflexion (S1) 4+ Good+ Left Dorsiflexion (L4) 4+ Good+ Plantarflexion (S1) 4+ Good+ PT-OP-O Vestibular Start: 06/24/23 12:49 Freq: Status: Active Protocol: Document 06/24/23 12:00 DCW (Rec: 06/24/23 12:49 DCW [id number]) Vestibular Assessment Auditory Tests [place] Test Within normal limits Rinne Test Negative Air Conduction Results Equal Visual Testing Smooth Pursuits Horizontal WNL Smooth Pursuits Vertical WNL Saccades Horizontal WNL Heave Test Positive Bilateral Thrust Head Positive Bilateral Spontaneous Nystagmus Negative Positional Testing [place]-Hallpike Negative Left,Negative Right Rolling Test Negative Left,Negative Right PT-OP-Q Treatments Start: 05/05/23 15:26 Freq: Status: Active Protocol: Document 12/03/23 11:19 AB (Rec: 12/03/23 12:14 AB [id number]) Gym Equipment Shuttle Balance Red Details Staggered Comments with visual scanning and head turns, CGA Therapeutic Exercises Supine Exercises knee flexion Supine Exercise Name flexion with terminal knee ext into ball when extending Side bilateral Reps/Minutes 2 min Comments feet on ball post manual, assist to keeep right foot on ball X 4 Sidelying Exercises sidelying knee extension Sidelying Exercise Name AROM Side right Resistance level one band Reps/Minutes X12 with band X for without band Sitting Exercises seated hip abduction Sitting Exercise Name HEP Equipment Used level 2 teal band Reps/Minutes one minute X 1 then X 15 Manual Therapy Treatment Soft Tissue Mobilization STM quad and hamstring right Le Body Location for minimal swelling and areas of increased density right quad Mobilization Type Cross-Friction,Rolling,Other Intensity/Depth Moderate Body Position Hooklying Comments Monitored for pain Manual Techniques PROM hamstring stretch right LE Body Location right hamstring Body Position Hooklying Reps/Duration contract relax X2 Comments post STM Neuro Re-Education Treatment Balance Activities tandem stepping Details CGA patient hands above bars to use as needed Reps/Duration 10 feet X 6 PT-OP-R Modalities Start: 05/10/23 13:44 Freq: Status: Active Protocol: Document 07/09/23 10:15 AB (Rec: 07/09/23 11:36 AB [id number]) Electric Stimulation Electric Stimulation [place] Stimulation Body Location right quad Intensity 25 Ramp 0.5 Comments 10 on 30 off, performed quad sets, sidelying knee extension from ~90 deg flexion, LAQ AA as unable on initial trials PT-OP-T Assessment and Plan Start: 05/05/23 15:26 Freq: Status: Active Protocol: Document 12/03/23 11:19 AB (Rec: 12/03/23 12:14 AB [id number]) Physical Therapy Assessment Goals Three Impairment Pt currently demonstrating 0/5 MMT right quad Short Term Goal (STG) Pt to exhibit 2-/5 MMT or greater of right quad in order to improve ability to limit knee buckling. STG Duration Met Signal Tower Director Goal (LTG) Pt to exhibit 3/5 MMT or greater of right quad in order to improve ability to limit knee buckling. LTG Duration 01/23/24 Two Impairment Pt ambulates 174' during Two Minute Walk Test using FWW Short Term Goal (STG) Pt to exhibit ability to complete full 6MWT with no rest breaks using LRAD, ambulating >600' in order to demonstrate improve gait speed and activity tolerance STG Duration Met [facility] Goal (LTG) Pt to complete 6MWT with a gait speed >1.97 ft/sec, as this cutoff is an indication of further functional decline in older adults. LTG Duration 01/23/24 One Impairment Pt does not have an appropriate home exercise program Short Term Goal (STG) Pt to be independent and compliant with an appropriate HEP STG Duration 12/26/23 - improving Assessment Summary Assessment Patient with decreased daniela this day to activity as seen by reports of feeling sweaty on initiation ie first 20 feet of 6 min walk tests and reports of having Covid since day after previous session. 6 min walk test this session with SPC and CGA 645 feet. Physical Therapy Plan Frequency and Duration Frequency of Treatment 2x/Week Plan of Care Start Date 10/25/23 Plan of Care End Date 01/23/24 Next Visit Focus/Plan Next Note Type Treatment Note Next Visit Plan Continue functional RLE strengthening. SPC training POC: Balance Outdoor gait training with SPC , revisit step ups on scale, possibly stagger stance sit to stand
--- NOTE | 2023-12-03 14:52 | PT.OPPN ---
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, right leg, subsequent encounter (12/03/23) Other specified postprocedural states (12/03/23) Physical Therapy Progress Note PT-OP-A Visit Information Start: 05/05/23 15:26 Freq: Status: Active Protocol: Document 12/03/23 11:19 AB (Rec: 12/03/23 12:14 AB [id number]) Out-Patient Physical Therapy Visit Information Visit Information Visit Type Treatment Note Visit Start Time 11:19 Visit Stop Time 12:05 Visit Number 55 Number of ARCHEOLOGIST CLASSICAL Visits 2 Evaluation Information Evaluation Date 05/05/23 PT-OP-B Current Condition Start: 05/05/23 15:26 Freq: Status: Active Protocol: Document 05/05/23 13:50 DCW (Rec: 05/05/23 15:48 DCW [id number]) Current Condition History of Current Condition Onset Date 12/31/22 Current Complaints R LE weakness, falls, neuromuscular dysfunction History of Current Condition Pt is a 73 year old female presenting with a complex recent medical history. Pt was brought to ED on 12/31/22 by EMS for nausea, vomiting, and generalized weakness. Was found to have cerebellar bleed and was transferred to [facility]. 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 Pt was at [facility] for 5 1/2 weeks, and then transferred to a rehab facility in [place] for another two months. Pt reports that at [facility], she was up walking around fairly well, but then developed severe nerve pain in her right leg. Found to have a large hematoma in her right low back/hip which ended up compressing right LE nerves. This resulted in loss of motor function and sensory imput from right leg. Pt admits she was miserable waiting for the pain to stop. Due to motor dysfunction in her right leg, was having increased difficulty walking, and spent her time in rehab in a wheelchair. Leg weakness resulted in two fals, both of which yusef her right knee. Pt has recently been working with home health, and is now doing well enough to progress to out-patient PT. Has been walking at home with a FWW, just obtained a 4WW, but not comfortable with it yet. Reports she can get herself to the kitchen, and furniture surf using the countertop and cabinets, and is able to dress and perform pericare independently. Still requires assistance with showering. Has friend helping as caregiver. Treatment Goals Patient/Caregiver Goals Pt's stated goals are to learn how to properly use 4WW, get right LE moving better, and walk on her own. PT-OP-C Subjective Start: 05/05/23 15:26 Freq: Status: Active Protocol: Document 12/03/23 11:19 AB (Rec: 12/03/23 12:14 AB [id number]) OP-PT Subjective Patient Comments Patient Comments Patient reports HEP was limited due to Covid, comments she has been able to do some in the last few days PT-OP-E Functional Tests Start: 05/05/23 15:26 Freq: Status: Active Protocol: Document 12/03/23 11:18 AB (Rec: 12/03/23 12:16 AB [id number]) Functional Tests 6 Minute Walk Test Distance 645 Device Used SPC Comments Patient had Covid over past week, comments feeling sweaty start of tests PT-OP-G Mobility & Gait Start: 05/05/23 15:26 Freq: Status: Active Protocol: Document 10/25/23 11:15 DCW (Rec: 10/25/23 11:36 DCW [id number]) OP Gait Assessment Gait Gait Assistance Required: Standby Assistance Distance (Feet) 628 Assistive Devices Assistive Device Gait Belt,Straight Cane Comments Gait Comments Improving motor control of right quad during gait PT-OP-H Neuro Start: 05/05/23 15:26 Freq: Status: Active Protocol: Document 10/25/23 11:15 DCW (Rec: 10/25/23 11:36 DCW [id number]) Sensation Evaluation Gross Sensation Gross Sensation Right LE Impaired Sensation Description Numbness,Tingling PT-OP-M Strength Start: 05/05/23 15:26 Freq: Status: Active Protocol: Document 10/25/23 11:15 DCW (Rec: 10/25/23 11:36 DCW [id number]) Hip Strength Hip Manual Muscle Testing Right Flexion (L2) 3 Fair Extension (S1) 4+ Good+ Abduction 4- Good- Adduction 4- Good- Left Flexion (L2) 4+ Good+ Extension (S1) 4+ Good+ Abduction 4+ Good+ Adduction 4+ Good+ Knee Strength Knee Manual Muscle Testing Right Flexion (S2) 5 Normal Extension (L3) 2 Poor Left Flexion (S2) 5 Normal Extension (L3) 5 Normal Ankle/Foot Strength Ankle and Foot Manual Muscle Testing Right Dorsiflexion (L4) 4+ Good+ Plantarflexion (S1) 4+ Good+ Left Dorsiflexion (L4) 4+ Good+ Plantarflexion (S1) 4+ Good+ PT-OP-O Vestibular Start: 06/24/23 12:49 Freq: Status: Active Protocol: Document 06/24/23 12:00 DCW (Rec: 06/24/23 12:49 DCW [id number]) Vestibular Assessment Auditory Tests [place] Test Within normal limits Rinne Test Negative Air Conduction Results Equal Visual Testing Smooth Pursuits Horizontal WNL Smooth Pursuits Vertical WNL Saccades Horizontal WNL Heave Test Positive Bilateral Thrust Head Positive Bilateral Spontaneous Nystagmus Negative Positional Testing [place]-Hallpike Negative Left,Negative Right Rolling Test Negative Left,Negative Right PT-OP-T Assessment and Plan Start: 05/05/23 15:26 Freq: Status: Active Protocol: Document 12/03/23 14:49 DCW (Rec: 12/03/23 14:51 DCW [id number]) Physical Therapy Assessment Impairments Impairments Balance,Functional Activities, Functional Mobility,Pain,ROM, Sensation,Soft Tissue Mobility ,Strength,Tone,Transfers Goals Three Impairment Pt currently demonstrating 0/5 MMT right quad Short Term Goal (STG) Pt to exhibit 2-/5 MMT or greater of right quad in order to improve ability to limit knee buckling. STG Duration Met Blood Donor Unit Assistant Goal (LTG) Pt to exhibit 3/5 MMT or greater of right quad in order to improve ability to limit knee buckling. LTG Duration 01/23/24 Two Impairment Pt ambulates 174' during Two Minute Walk Test using FWW Short Term Goal (STG) Pt to exhibit ability to complete full 6MWT with no rest breaks using LRAD, ambulating >600' in order to demonstrate improve gait speed and activity tolerance STG Duration Met Blood Donor Unit Assistant Goal (LTG) Pt to complete 6MWT with a gait speed >1.97 ft/sec, as this cutoff is an indication of further functional decline in older adults. LTG Duration 01/23/24 One Impairment Pt does not have an appropriate home exercise program Short Term Goal (STG) Pt to be independent and compliant with an appropriate HEP STG Duration 12/26/23 - improving Assessment Summary Assessment Pt returning to PT following a week of COVID, feeling less energetic today, still showing some slight improvements with 6MWT distance. Continue to function on quad strength, activity tolerance, gait quality/arsen, and functional mobility Physical Therapy Plan Frequency and Duration Frequency of Treatment 2x/Week Plan of Care Start Date 10/25/23 Plan of Care End Date 01/23/24 Therapeutic Interventions Therapeutic Interventions Balance Training,Coordination Training,Gait Training,Home Exercise Program,Joint Mobilizations,Manual Therapy, Neuromuscular Re-education, Patient/Caregiver Education, Self-Care/Home Management, Sensory Integration,Soft Tissue Mobilization, Therapeutic Activities, Therapeutic Exercises Next Visit Focus/Plan Next Note Type Treatment Note Next Visit Plan Continue functional RLE strengthening. SPC training POC: Balance Outdoor gait training with SPC , revisit step ups on scale, possibly stagger stance sit to stand
--- NOTE | 2023-12-08 12:56 | PT.OTN ---
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, right leg, subsequent encounter (12/08/23) Other specified postprocedural states (12/08/23) Physical Therapy Treatment Note PT-OP-A Visit Information Start: 05/05/23 15:26 Freq: Status: Active Protocol: Document 12/08/23 10:13 AB (Rec: 12/08/23 12:56 AB [id number]) Out-Patient Physical Therapy Visit Information Visit Information Visit Type Treatment Note Visit Start Time 11:19 Visit Stop Time 12:09 Visit Number 56 Number of SHACTOR Visits 3 Evaluation Information Evaluation Date 05/05/23 PT-OP-B Current Condition Start: 05/05/23 15:26 Freq: Status: Active Protocol: Document 05/05/23 13:50 DCW (Rec: 05/05/23 15:48 DCW [id number]) Current Condition History of Current Condition Onset Date 12/31/22 Current Complaints R LE weakness, falls, neuromuscular dysfunction History of Current Condition Pt is a 73 year old female presenting with a complex recent medical history. Pt was brought to ED on 12/31/22 by EMS for nausea, vomiting, and generalized weakness. Was found to have cerebellar bleed and was transferred to [facility]. 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 Pt was at [facility] for 5 1/2 weeks, and then transferred to a rehab facility in [place] for another two months. Pt reports that at [facility], she was up walking around fairly well, but then developed severe nerve pain in her right leg. Found to have a large hematoma in her right low back/hip which ended up compressing right LE nerves. This resulted in loss of motor function and sensory imput from right leg. Pt admits she was miserable waiting for the pain to stop. Due to motor dysfunction in her right leg, was having increased difficulty walking, and spent her time in rehab in a wheelchair. Leg weakness resulted in two fals, both of which yusef her right knee. Pt has recently been working with home health, and is now doing well enough to progress to out-patient PT. Has been walking at home with a FWW, just obtained a 4WW, but not comfortable with it yet. Reports she can get herself to the kitchen, and furniture surf using the countertop and cabinets, and is able to dress and perform pericare independently. Still requires assistance with showering. Has friend helping as caregiver. Treatment Goals Patient/Caregiver Goals Pt's stated goals are to learn how to properly use 4WW, get right LE moving better, and walk on her own. PT-OP-C Subjective Start: 05/05/23 15:26 Freq: Status: Active Protocol: Document 12/08/23 10:13 AB (Rec: 12/08/23 12:56 AB [id number]) OP-PT Subjective Patient Comments Patient Comments Patient reports she is using the SPC in the home, sometimes without device. Patient reports Candace has been making her use the FWW part of the time. PT-OP-E Functional Tests Start: 05/05/23 15:26 Freq: Status: Active Protocol: Document 12/03/23 11:18 AB (Rec: 12/03/23 12:16 AB [id number]) Functional Tests 6 Minute Walk Test Distance 645 Device Used SPC Comments Patient had Covid over past week, comments feeling sweaty start of tests PT-OP-G Mobility & Gait Start: 05/05/23 15:26 Freq: Status: Active Protocol: Document 10/25/23 11:15 DCW (Rec: 10/25/23 11:36 DCW [id number]) OP Gait Assessment Gait Gait Assistance Required: Standby Assistance Distance (Feet) 628 Assistive Devices Assistive Device Gait Belt,Straight Cane Comments Gait Comments Improving motor control of right quad during gait PT-OP-H Neuro Start: 05/05/23 15:26 Freq: Status: Active Protocol: Document 10/25/23 11:15 DCW (Rec: 10/25/23 11:36 DCW [id number]) Sensation Evaluation Gross Sensation Gross Sensation Right LE Impaired Sensation Description Numbness,Tingling PT-OP-M Strength Start: 05/05/23 15:26 Freq: Status: Active Protocol: Document 10/25/23 11:15 DCW (Rec: 10/25/23 11:36 DCW [id number]) Hip Strength Hip Manual Muscle Testing Right Flexion (L2) 3 Fair Extension (S1) 4+ Good+ Abduction 4- Good- Adduction 4- Good- Left Flexion (L2) 4+ Good+ Extension (S1) 4+ Good+ Abduction 4+ Good+ Adduction 4+ Good+ Knee Strength Knee Manual Muscle Testing Right Flexion (S2) 5 Normal Extension (L3) 2 Poor Left Flexion (S2) 5 Normal Extension (L3) 5 Normal Ankle/Foot Strength Ankle and Foot Manual Muscle Testing Right Dorsiflexion (L4) 4+ Good+ Plantarflexion (S1) 4+ Good+ Left Dorsiflexion (L4) 4+ Good+ Plantarflexion (S1) 4+ Good+ PT-OP-O Vestibular Start: 06/24/23 12:49 Freq: Status: Active Protocol: Document 06/24/23 12:00 DCW (Rec: 06/24/23 12:49 DCW [id number]) Vestibular Assessment Auditory Tests [place] Test Within normal limits Rinne Test Negative Air Conduction Results Equal Visual Testing Smooth Pursuits Horizontal WNL Smooth Pursuits Vertical WNL Saccades Horizontal WNL Heave Test Positive Bilateral Thrust Head Positive Bilateral Spontaneous Nystagmus Negative Positional Testing [place]-Hallpike Negative Left,Negative Right Rolling Test Negative Left,Negative Right PT-OP-Q Treatments Start: 05/05/23 15:26 Freq: Status: Active Protocol: Document 12/08/23 10:13 AB (Rec: 12/08/23 12:56 AB [id number]) Gym Equipment Shuttle Balance Red Details Staggered Comments with visual scanning and head turns, CGA Therapeutic Exercises Sitting Exercises dorsiflexion Sitting Exercise Name AROM and with bands Side right Resistance level one band Reps/Minutes X15 seated hip adduction Sitting Exercise Name with ball Side bilateral Reps/Minutes 10 seconds X 5 seated hip abduction Sitting Exercise Name HEP level 3 band to HEP Equipment Used level 3 alutiiq green band Reps/Minutes one minute X 1 then X 15 tapping to facilitate quad with seated quad set Sitting Exercise Name LAQ this session Side right Reps/Minutes X10 Comments assist to fully extend, tapping then patient holds and lowers LE Standing Exercises calf stretches on LETI Side bilateral Reps/Minutes 60 sec X 2 each LE Comments reports no change with sensation at calf during lateral step up post stretc side stepping with band Standing Exercise Name using parallel bars Equipment Used leve 3 green band Reps/Minutes 10 feet X 2 left and right Gait Training Gait Activity Cane Level of Assistance supervision Treatment Focus VC for feet shoulder width apart Comments in and outdoors, to car, observing placing walker into car. Neuro Re-Education Treatment Balance Activities balloon volley Details Romberg Surface air ex Comments CGA hands above bars kickball Details CGA Surface floor Comments hands above bar, progressed to step then kick marching Equipment blue cushion SLS Reps/Duration 3 each LE CGA step up taps alternating Details CGA patient hands above bars to use as needed Equipment 8 inch step Reps/Duration X12 tandem stepping Details CGA patient hands above bars to use as needed Reps/Duration 10 feet X 6 PT-OP-R Modalities Start: 05/10/23 13:44 Freq: Status: Active Protocol: Document 07/09/23 10:15 AB (Rec: 07/09/23 11:36 AB [id number]) Electric Stimulation Electric Stimulation [place]er Stimulation Body Location right quad Intensity 25 Ramp 0.5 Comments 10 on 30 off, performed quad sets, sidelying knee extension from ~90 deg flexion, LAQ AA as unable on initial trials PT-OP-T Assessment and Plan Start: 05/05/23 15:26 Freq: Status: Active Protocol: Document 12/08/23 10:13 AB (Rec: 12/08/23 12:56 AB [id number]) Physical Therapy Assessment Goals Three Impairment Pt currently demonstrating 0/5 MMT right quad Short Term Goal (STG) Pt to exhibit 2-/5 MMT or greater of right quad in order to improve ability to limit knee buckling. STG Duration Met Ride Assembly Supervisor Goal (LTG) Pt to exhibit 3/5 MMT or greater of right quad in order to improve ability to limit knee buckling. LTG Duration 01/23/24 Two Impairment Pt ambulates 174' during Two Minute Walk Test using FWW Short Term Goal (STG) Pt to exhibit ability to complete full 6MWT with no rest breaks using LRAD, ambulating >600' in order to demonstrate improve gait speed and activity tolerance STG Duration Met Group Home Goal (LTG) Pt to complete 6MWT with a gait speed >1.97 ft/sec, as this cutoff is an indication of further functional decline in older adults. LTG Duration 01/23/24 One Impairment Pt does not have an appropriate home exercise program Short Term Goal (STG) Pt to be independent and compliant with an appropriate HEP STG Duration 12/26/23 - improving Assessment Summary Assessment Pt advised to have spouse drive her to clinic to help with placing walker in and out of car until cleared to ambulate with cane in parking lot. Good quad activation end range extension post PROM into full LAQ then tapping to facilitate prior to lowering foot to floor this session. Physical Therapy Plan Frequency and Duration Frequency of Treatment 2x/Week Plan of Care Start Date 10/25/23 Plan of Care End Date 01/23/24 Next Visit Focus/Plan Next Note Type Treatment Note Next Visit Plan Continue functional RLE strengthening. SPC training POC: Balance Outdoor gait training with SPC , revisit step ups on scale, possibly stagger stance sit to stand
--- NOTE | 2023-12-10 12:00 | PT.OTN ---
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, right leg, subsequent encounter (12/10/23) Other specified postprocedural states (12/10/23) Physical Therapy Treatment Note PT-OP-A Visit Information Start: 05/05/23 15:26 Freq: Status: Active Protocol: Document 12/10/23 11:15 DCW (Rec: 12/10/23 12:00 DCW [id number]) Out-Patient Physical Therapy Visit Information Visit Information Visit Type Treatment Note Visit Start Time 11:15 Visit Stop Time 12:00 Visit Number 57 Number of EARLY HEAD START DIRECTOR Visits 0 Evaluation Information Evaluation Date 05/05/23 PT-OP-B Current Condition Start: 05/05/23 15:26 Freq: Status: Active Protocol: Document 05/05/23 13:50 DCW (Rec: 05/05/23 15:48 DCW [id number]) Current Condition History of Current Condition Onset Date 12/31/22 Current Complaints R LE weakness, falls, neuromuscular dysfunction History of Current Condition Pt is a 73 year old female presenting with a complex recent medical history. Pt was brought to ED on 12/31/22 by EMS for nausea, vomiting, and generalized weakness. Was found to have cerebellar bleed and was transferred to [facility]. 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 Pt was at [facility] for 5 1/2 weeks, and then transferred to a rehab facility in [place] for another two months. Pt reports that at [facility], she was up walking around fairly well, but then developed severe nerve pain in her right leg. Found to have a large hematoma in her right low back/hip which ended up compressing right LE nerves. This resulted in loss of motor function and sensory imput from right leg. Pt admits she was miserable waiting for the pain to stop. Due to motor dysfunction in her right leg, was having increased difficulty walking, and spent her time in rehab in a wheelchair. Leg weakness resulted in two fals, both of which yusef her right knee. Pt has recently been working with home health, and is now doing well enough to progress to out-patient PT. Has been walking at home with a FWW, just obtained a 4WW, but not comfortable with it yet. Reports she can get herself to the kitchen, and furniture surf using the countertop and cabinets, and is able to dress and perform pericare independently. Still requires assistance with showering. Has friend helping as caregiver. Treatment Goals Patient/Caregiver Goals Pt's stated goals are to learn how to properly use 4WW, get right LE moving better, and walk on her own. PT-OP-C Subjective Start: 05/05/23 15:26 Freq: Status: Active Protocol: Document 12/10/23 11:15 DCW (Rec: 12/10/23 12:00 DCW [id number]) OP-PT Subjective Patient Comments Patient Comments Pt reports she was spending increased time walking outdoors using the 4WW. PT-OP-E Functional Tests Start: 05/05/23 15:26 Freq: Status: Active Protocol: Document 12/03/23 11:18 AB (Rec: 12/03/23 12:16 AB [id number]) Functional Tests 6 Minute Walk Test Distance 645 Device Used SPC Comments Patient had Covid over past week, comments feeling sweaty start of tests PT-OP-G Mobility & Gait Start: 05/05/23 15:26 Freq: Status: Active Protocol: Document 10/25/23 11:15 DCW (Rec: 10/25/23 11:36 DCW [id number]) OP Gait Assessment Gait Gait Assistance Required: Standby Assistance Distance (Feet) 628 Assistive Devices Assistive Device Gait Belt,Straight Cane Comments Gait Comments Improving motor control of right quad during gait PT-OP-H Neuro Start: 05/05/23 15:26 Freq: Status: Active Protocol: Document 10/25/23 11:15 DCW (Rec: 10/25/23 11:36 DCW [id number]) Sensation Evaluation Gross Sensation Gross Sensation Right LE Impaired Sensation Description Numbness,Tingling PT-OP-M Strength Start: 05/05/23 15:26 Freq: Status: Active Protocol: Document 10/25/23 11:15 DCW (Rec: 10/25/23 11:36 DCW [id number]) Hip Strength Hip Manual Muscle Testing Right Flexion (L2) 3 Fair Extension (S1) 4+ Good+ Abduction 4- Good- Adduction 4- Good- Left Flexion (L2) 4+ Good+ Extension (S1) 4+ Good+ Abduction 4+ Good+ Adduction 4+ Good+ Knee Strength Knee Manual Muscle Testing Right Flexion (S2) 5 Normal Extension (L3) 2 Poor Left Flexion (S2) 5 Normal Extension (L3) 5 Normal Ankle/Foot Strength Ankle and Foot Manual Muscle Testing Right Dorsiflexion (L4) 4+ Good+ Plantarflexion (S1) 4+ Good+ Left Dorsiflexion (L4) 4+ Good+ Plantarflexion (S1) 4+ Good+ PT-OP-O Vestibular Start: 06/24/23 12:49 Freq: Status: Active Protocol: Document 06/24/23 12:00 DCW (Rec: 06/24/23 12:49 DCW [id number]) Vestibular Assessment Auditory Tests Zurita Test Within normal limits Rinne Test Negative Air Conduction Results Equal Visual Testing Smooth Pursuits Horizontal WNL Smooth Pursuits Vertical WNL Saccades Horizontal WNL Heave Test Positive Bilateral Thrust Head Positive Bilateral Spontaneous Nystagmus Negative Positional Testing Spencer-Hallpike Negative Left,Negative Right Rolling Test Negative Left,Negative Right PT-OP-Q Treatments Start: 05/05/23 15:26 Freq: Status: Active Protocol: Document 12/10/23 11:15 DCW (Rec: 12/10/23 12:00 DCW [id number]) Gym Equipment Shuttle Balance Red Details WBOS Therapeutic Exercises Sitting Exercises tapping to facilitate quad with seated quad set Sitting Exercise Name LAQ this session Side right Reps/Minutes X10 Comments assist to fully extend, tapping then patient holds and lowers LE Therapeutic Activity Therapeutic Activity Carrying Name Carrying crate 5#->10#->15# Comments Practice for moving 4WW/ storing 4WW on vehicle Floor recovery Name Floor<->Stand Reps/Minutes x2 Comments CGA with UE assist, unable to get off floor without chair nearby Gait Training Gait Activity Cane Level of Assistance supervision Treatment Focus VC for feet shoulder width apart Comments Around clinic PT-OP-R Modalities Start: 05/10/23 13:44 Freq: Status: Active Protocol: Document 07/09/23 10:15 AB (Rec: 07/09/23 11:36 AB [id number]) Electric Stimulation Electric Stimulation [place] Stimulation Body Location right quad Intensity 25 Ramp 0.5 Comments 10 on 30 off, performed quad sets, sidelying knee extension from ~90 deg flexion, LAQ AA as unable on initial trials PT-OP-T Assessment and Plan Start: 05/05/23 15:26 Freq: Status: Active Protocol: Document 12/10/23 11:15 DCW (Rec: 12/10/23 12:00 DCW [id number]) Physical Therapy Assessment Impairments Impairments Balance,Functional Activities, Functional Mobility,Pain,ROM, Sensation,Soft Tissue Mobility ,Strength,Tone,Transfers Goals Three Impairment Pt currently demonstrating 0/5 MMT right quad Short Term Goal (STG) Pt to exhibit 2-/5 MMT or greater of right quad in order to improve ability to limit knee buckling. STG Duration Met Sluice Tender Goal (LTG) Pt to exhibit 3/5 MMT or greater of right quad in order to improve ability to limit knee buckling. LTG Duration 01/23/24 Two Impairment Pt ambulates 174' during Two Minute Walk Test using FWW Short Term Goal (STG) Pt to exhibit ability to complete full 6MWT with no rest breaks using LRAD, ambulating >600' in order to demonstrate improve gait speed and activity tolerance STG Duration Met Sluice Tender Goal (LTG) Pt to complete 6MWT with a gait speed >1.97 ft/sec, as this cutoff is an indication of further functional decline in older adults. LTG Duration 01/23/24 One Impairment Pt does not have an appropriate home exercise program Short Term Goal (STG) Pt to be independent and compliant with an appropriate HEP STG Duration 12/26/23 - improving Assessment Summary Assessment Worked to troubleshoot how she can more safely transition to putting 4WW in her car without requiring walking across lot without an assistive device. Spent time today working on moving while carrying weight in order to increase stability getting 4WW into car. Physical Therapy Plan Frequency and Duration Frequency of Treatment 2x/Week Plan of Care Start Date 10/25/23 Plan of Care End Date 01/23/24 Therapeutic Interventions Therapeutic Interventions Balance Training,Coordination Training,Gait Training,Home Exercise Program,Joint Mobilizations,Manual Therapy, Neuromuscular Re-education, Patient/Caregiver Education, Self-Care/Home Management, Sensory Integration,Soft Tissue Mobilization, Therapeutic Activities, Therapeutic Exercises Next Visit Focus/Plan Next Note Type Treatment Note Next Visit Plan Continue functional RLE strengthening. SPC training POC: Balance Outdoor gait training with SPC , revisit step ups on scale, possibly stagger stance sit to stand
--- NOTE | 2023-12-16 16:34 | PT.OTN ---
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, right leg, subsequent encounter (12/16/23) Other specified postprocedural states (12/16/23) Physical Therapy Treatment Note PT-OP-A Visit Information Start: 05/05/23 15:26 Freq: Status: Active Protocol: Document 12/16/23 12:52 AB (Rec: 12/16/23 14:32 AB [id number]) Out-Patient Physical Therapy Visit Information Visit Information Visit Type Treatment Note Visit Start Time 13:45 Visit Stop Time 14:30 Visit Number 58 Number of STOCK SHAPER Visits 1 Evaluation Information Evaluation Date 05/05/23 PT-OP-B Current Condition Start: 05/05/23 15:26 Freq: Status: Active Protocol: Document 05/05/23 13:50 DCW (Rec: 05/05/23 15:48 DCW [id number]) Current Condition History of Current Condition Onset Date 12/31/22 Current Complaints R LE weakness, falls, neuromuscular dysfunction History of Current Condition Pt is a 73 year old female presenting with a complex recent medical history. Pt was brought to ED on 12/31/22 by EMS for nausea, vomiting, and generalized weakness. Was found to have cerebellar bleed and was transferred to [facility]. 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 Pt was at [facility] for 5 1/2 weeks, and then transferred to a rehab facility in [place] for another two months. Pt reports that at [facility], she was up walking around fairly well, but then developed severe nerve pain in her right leg. Found to have a large hematoma in her right low back/hip which ended up compressing right LE nerves. This resulted in loss of motor function and sensory imput from right leg. Pt admits she was miserable waiting for the pain to stop. Due to motor dysfunction in her right leg, was having increased difficulty walking, and spent her time in rehab in a wheelchair. Leg weakness resulted in two fals, both of which yusef her right knee. Pt has recently been working with home health, and is now doing well enough to progress to out-patient PT. Has been walking at home with a FWW, just obtained a 4WW, but not comfortable with it yet. Reports she can get herself to the kitchen, and furniture surf using the countertop and cabinets, and is able to dress and perform pericare independently. Still requires assistance with showering. Has friend helping as caregiver. Treatment Goals Patient/Caregiver Goals Pt's stated goals are to learn how to properly use 4WW, get right LE moving better, and walk on her own. PT-OP-C Subjective Start: 05/05/23 15:26 Freq: Status: Active Protocol: Document 12/16/23 12:52 AB (Rec: 12/16/23 14:32 AB [id number]) OP-PT Subjective Patient Comments Patient Comments Patient reports getting up from the floor without support caused increased big time knee pain (behind knee). Patient reports the knee swelled up and she iced it. Patient reports having no right knee pain now, feels stiff. Patient reports she got a program project analyst walker she can lift into car with one hand and hold car with other hand. Circumference joint like left knee 37cm right knee 42.25 cm PT-OP-E Functional Tests Start: 05/05/23 15:26 Freq: Status: Active Protocol: Document 12/03/23 11:18 AB (Rec: 12/03/23 12:16 AB [id number]) Functional Tests 6 Minute Walk Test Distance 645 Device Used SPC Comments Patient had Covid over past week, comments feeling sweaty start of tests PT-OP-G Mobility & Gait Start: 05/05/23 15:26 Freq: Status: Active Protocol: Document 10/25/23 11:15 DCW (Rec: 10/25/23 11:36 DCW [id number]) OP Gait Assessment Gait Gait Assistance Required: Standby Assistance Distance (Feet) 628 Assistive Devices Assistive Device Gait Belt,Straight Cane Comments Gait Comments Improving motor control of right quad during gait PT-OP-H Neuro Start: 05/05/23 15:26 Freq: Status: Active Protocol: Document 10/25/23 11:15 DCW (Rec: 10/25/23 11:36 DCW [id number]) Sensation Evaluation Gross Sensation Gross Sensation Right LE Impaired Sensation Description Numbness,Tingling PT-OP-M Strength Start: 05/05/23 15:26 Freq: Status: Active Protocol: Document 10/25/23 11:15 DCW (Rec: 10/25/23 11:36 DCW [id number]) Hip Strength Hip Manual Muscle Testing Right Flexion (L2) 3 Fair Extension (S1) 4+ Good+ Abduction 4- Good- Adduction 4- Good- Left Flexion (L2) 4+ Good+ Extension (S1) 4+ Good+ Abduction 4+ Good+ Adduction 4+ Good+ Knee Strength Knee Manual Muscle Testing Right Flexion (S2) 5 Normal Extension (L3) 2 Poor Left Flexion (S2) 5 Normal Extension (L3) 5 Normal Ankle/Foot Strength Ankle and Foot Manual Muscle Testing Right Dorsiflexion (L4) 4+ Good+ Plantarflexion (S1) 4+ Good+ Left Dorsiflexion (L4) 4+ Good+ Plantarflexion (S1) 4+ Good+ PT-OP-O Vestibular Start: 06/24/23 12:49 Freq: Status: Active Protocol: Document 06/24/23 12:00 DCW (Rec: 06/24/23 12:49 DCW [id number]) Vestibular Assessment Auditory Tests Zurita Test Within normal limits Rinne Test Negative Air Conduction Results Equal Visual Testing Smooth Pursuits Horizontal WNL Smooth Pursuits Vertical WNL Saccades Horizontal WNL Heave Test Positive Bilateral Thrust Head Positive Bilateral Spontaneous Nystagmus Negative Positional Testing Austin-Hallpike Negative Left,Negative Right Rolling Test Negative Left,Negative Right PT-OP-Q Treatments Start: 05/05/23 15:26 Freq: Status: Active Protocol: Document 12/16/23 12:52 AB (Rec: 12/16/23 14:32 AB [id number]) Therapeutic Exercises Sidelying Exercises sidelying knee extension Sidelying Exercise Name AROM Side right Resistance level one band and level 2 Reps/Minutes X15 each color Sitting Exercises seated hip abduction Equipment Used level 3 and level 4 Reps/Minutes level 3 X 15 and level 4 X 15 and one minute hold tapping to facilitate quad with seated quad set Sitting Exercise Name LAQ this session Side right Reps/Minutes X10 Comments assist to fully extend, tapping then patient holds and lowers LE Standing Exercises calf stretches on LETI Standing Exercise Name gastroc and soleus Side bilateral Reps/Minutes 60 sec X 2 Abduction Standing Exercise Name Hip Abduction Side bilateral Resistance 4# Equipment Used // bars Other Exercises Step-ups Other Exercise Name Step-ups Side right Resistance AROM Equipment Used 4 inch step Reps/Minutes X10 Manual Therapy Treatment Soft Tissue Mobilization STM quad and hamstring right Le Body Location for minimal swelling and areas of increased density right quad Mobilization Type Cross-Friction,Rolling,Other Intensity/Depth Moderate Body Position Hooklying Comments Monitored for pain PT-OP-R Modalities Start: 05/10/23 13:44 Freq: Status: Active Protocol: Document 07/09/23 10:15 AB (Rec: 07/09/23 11:36 AB [id number]) Electric Stimulation Electric Stimulation [place] Stimulation Body Location right quad Intensity 25 Ramp 0.5 Comments 10 on 30 off, performed quad sets, sidelying knee extension from ~90 deg flexion, LAQ AA as unable on initial trials PT-OP-T Assessment and Plan Start: 05/05/23 15:26 Freq: Status: Active Protocol: Document 12/16/23 12:52 AB (Rec: 12/16/23 14:32 AB [id number]) Physical Therapy Assessment Goals Three Impairment Pt currently demonstrating 0/5 MMT right quad Short Term Goal (STG) Pt to exhibit 2-/5 MMT or greater of right quad in order to improve ability to limit knee buckling. STG Duration Met Hub Associate Goal (LTG) Pt to exhibit 3/5 MMT or greater of right quad in order to improve ability to limit knee buckling. LTG Duration 01/23/24 Two Impairment Pt ambulates 174' during Two Minute Walk Test using FWW Short Term Goal (STG) Pt to exhibit ability to complete full 6MWT with no rest breaks using LRAD, ambulating >600' in order to demonstrate improve gait speed and activity tolerance STG Duration Met Usp Goal (LTG) Pt to complete 6MWT with a gait speed >1.97 ft/sec, as this cutoff is an indication of further functional decline in older adults. LTG Duration 01/23/24 One Impairment Pt does not have an appropriate home exercise program Short Term Goal (STG) Pt to be independent and compliant with an appropriate HEP STG Duration 12/26/23 - improving Assessment Summary Assessment Patient reports feeling shaky end of session, referring to right LE. Physical Therapy Plan Frequency and Duration Frequency of Treatment 2x/Week Plan of Care Start Date 10/25/23 Plan of Care End Date 01/23/24 Next Visit Focus/Plan Next Note Type Treatment Note Next Visit Plan Continue functional RLE strengthening. SPC training POC: Balance Outdoor gait training with SPC , revisit step ups on scale, possibly stagger stance sit to stand
--- NOTE | 2023-12-17 15:15 | PT.OTN ---
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, right leg, subsequent encounter (12/17/23) Other specified postprocedural states (12/17/23) Physical Therapy Treatment Note PT-OP-A Visit Information Start: 05/05/23 15:26 Freq: Status: Active Protocol: Document 12/17/23 14:30 SP (Rec: 12/17/23 15:41 SP [id number]) Out-Patient Physical Therapy Visit Information Visit Information Visit Type Treatment Note Visit Start Time 14:30 Visit Stop Time 15:15 Visit Number 59 Number of LINE PATROLLER Visits 2 Evaluation Information Evaluation Date 05/05/23 PT-OP-B Current Condition Start: 05/05/23 15:26 Freq: Status: Active Protocol: Document 05/05/23 13:50 DCW (Rec: 05/05/23 15:48 DCW [id number]) Current Condition History of Current Condition Onset Date 12/31/22 Current Complaints R LE weakness, falls, neuromuscular dysfunction History of Current Condition Pt is a 73 year old female presenting with a complex recent medical history. Pt was brought to ED on 12/31/22 by EMS for nausea, vomiting, and generalized weakness. Was found to have cerebellar bleed and was transferred to [facility]. 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 Pt was at [facility] for 5 1/2 weeks, and then transferred to a rehab facility in [place] for another two months. Pt reports that at [facility], she was up walking around fairly well, but then developed severe nerve pain in her right leg. Found to have a large hematoma in her right low back/hip which ended up compressing right LE nerves. This resulted in loss of motor function and sensory imput from right leg. Pt admits she was miserable waiting for the pain to stop. Due to motor dysfunction in her right leg, was having increased difficulty walking, and spent her time in rehab in a wheelchair. Leg weakness resulted in two fals, both of which yusef her right knee. Pt has recently been working with home health, and is now doing well enough to progress to out-patient PT. Has been walking at home with a FWW, just obtained a 4WW, but not comfortable with it yet. Reports she can get herself to the kitchen, and furniture surf using the countertop and cabinets, and is able to dress and perform pericare independently. Still requires assistance with showering. Has friend helping as caregiver. Treatment Goals Patient/Caregiver Goals Pt's stated goals are to learn how to properly use 4WW, get right LE moving better, and walk on her own. PT-OP-C Subjective Start: 05/05/23 15:26 Freq: Status: Active Protocol: Document 12/17/23 14:30 SP (Rec: 12/17/23 15:41 SP [id number]) OP-PT Subjective Patient Comments Patient Comments Pt reports does go out and do some flower pruning using 4WW for support for safety. PT-OP-E Functional Tests Start: 05/05/23 15:26 Freq: Status: Active Protocol: Document 12/03/23 11:18 AB (Rec: 12/03/23 12:16 AB [id number]) Functional Tests 6 Minute Walk Test Distance 645 Device Used SPC Comments Patient had Covid over past week, comments feeling sweaty start of tests PT-OP-G Mobility & Gait Start: 05/05/23 15:26 Freq: Status: Active Protocol: Document 10/25/23 11:15 DCW (Rec: 10/25/23 11:36 DCW [id number]) OP Gait Assessment Gait Gait Assistance Required: Standby Assistance Distance (Feet) 628 Assistive Devices Assistive Device Gait Belt,Straight Cane Comments Gait Comments Improving motor control of right quad during gait PT-OP-H Neuro Start: 05/05/23 15:26 Freq: Status: Active Protocol: Document 10/25/23 11:15 DCW (Rec: 10/25/23 11:36 DCW [id number]) Sensation Evaluation Gross Sensation Gross Sensation Right LE Impaired Sensation Description Numbness,Tingling PT-OP-M Strength Start: 05/05/23 15:26 Freq: Status: Active Protocol: Document 10/25/23 11:15 DCW (Rec: 10/25/23 11:36 DCW [id number]) Hip Strength Hip Manual Muscle Testing Right Flexion (L2) 3 Fair Extension (S1) 4+ Good+ Abduction 4- Good- Adduction 4- Good- Left Flexion (L2) 4+ Good+ Extension (S1) 4+ Good+ Abduction 4+ Good+ Adduction 4+ Good+ Knee Strength Knee Manual Muscle Testing Right Flexion (S2) 5 Normal Extension (L3) 2 Poor Left Flexion (S2) 5 Normal Extension (L3) 5 Normal Ankle/Foot Strength Ankle and Foot Manual Muscle Testing Right Dorsiflexion (L4) 4+ Good+ Plantarflexion (S1) 4+ Good+ Left Dorsiflexion (L4) 4+ Good+ Plantarflexion (S1) 4+ Good+ PT-OP-O Vestibular Start: 06/24/23 12:49 Freq: Status: Active Protocol: Document 06/24/23 12:00 DCW (Rec: 06/24/23 12:49 DCW [id number]) Vestibular Assessment Auditory Tests [place] Test Within normal limits Rinne Test Negative Air Conduction Results Equal Visual Testing Smooth Pursuits Horizontal WNL Smooth Pursuits Vertical WNL Saccades Horizontal WNL Heave Test Positive Bilateral Thrust Head Positive Bilateral Spontaneous Nystagmus Negative Positional Testing [place]-Hallpike Negative Left,Negative Right Rolling Test Negative Left,Negative Right PT-OP-Q Treatments Start: 05/05/23 15:26 Freq: Status: Active Protocol: Document 12/17/23 14:30 SP (Rec: 12/17/23 15:41 SP [id number]) Gym Equipment Shuttle Balance Red Details WBOS, stride stance, lateral Comments wt shift HTs stride stance: EC R ft fwd 9 sec, L ft fwd 8sec CG- Min A Therapeutic Exercises Other Exercises modified squat side stepping Other Exercise Name trialed toward end tx (R quad & hs strengthening) Side bilateral Resistance AROM, no UE support Equipment Used open space Reps/Minutes 10 ft x3 laps, CGA for safety GB and near front R knee Comments cues for maintain buttocks back and knees bent, no locking R knee-challenge Step-ups Other Exercise Name Step-up R/back L (outside)- SL repeated Side right Resistance AROM Equipment Used 6 inch step, SPC in LUE, LINE PATROLLER provided 10%A as needed to R forearm>AP R shld Reps/Minutes multiple reps Comments cued R heel press glut drive, TKE, minimize lock ext Gait Training Gait Activity /s AD Description without device Level of Assistance CGA Distance/Duration 40 ft (carrying SPC) Treatment Focus cued soft R knee gait phases Comments Fwd, bkwd Stairs Description Ascend stairs Device Used L SPC, occasional R HR PRN Level of Assistance CGA Distance/Duration outdoor stairs Comments Step-to Cane Description outside gravel and grass incline/decline Level of Assistance CGA/Close SBA Treatment Focus VC for feet shoulder width apart Comments Max cues R soft knee push off ascend, eccentric flexion descend /c LLE heel toe advancement. Neuro Re-Education Treatment Balance Activities Mats with objects Details Uneven surfaces: mat over objects Equipment SPC, mat/rocker bd/disc, 2 bal beam, wooden wedges Comments Fwd: step to/receiprocal patterning cued R soft knee/no locking PT-OP-R Modalities Start: 05/10/23 13:44 Freq: Status: Active Protocol: Document 07/09/23 10:15 AB (Rec: 07/09/23 11:36 AB [id number]) Electric Stimulation Electric Stimulation [place] Stimulation Body Location right quad Intensity 25 Ramp 0.5 Comments 10 on 30 off, performed quad sets, sidelying knee extension from ~90 deg flexion, LAQ AA as unable on initial trials PT-OP-T Assessment and Plan Start: 05/05/23 15:26 Freq: Status: Active Protocol: Document 12/17/23 14:30 SP (Rec: 12/17/23 15:41 SP [id number]) Physical Therapy Assessment Goals Three Impairment Pt currently demonstrating 0/5 MMT right quad Short Term Goal (STG) Pt to exhibit 2-/5 MMT or greater of right quad in order to improve ability to limit knee buckling. STG Duration Met Mcc Goal (LTG) Pt to exhibit 3/5 MMT or greater of right quad in order to improve ability to limit knee buckling. LTG Duration 01/23/24 Two Impairment Pt ambulates 174' during Two Minute Walk Test using FWW Short Term Goal (STG) Pt to exhibit ability to complete full 6MWT with no rest breaks using LRAD, ambulating >600' in order to demonstrate improve gait speed and activity tolerance STG Duration Met Mcc Goal (LTG) Pt to complete 6MWT with a gait speed >1.97 ft/sec, as this cutoff is an indication of further functional decline in older adults. LTG Duration 01/23/24 One Impairment Pt does not have an appropriate home exercise program Short Term Goal (STG) Pt to be independent and compliant with an appropriate HEP STG Duration 12/26/23 - improving Assessment Summary Assessment Pt worked hard and improved understanding R soft knee positioning during gait incline/declined, was able to progress in PT uneven surface incline/decline using SPC CGA with cues for R knee small flexion/unlocked with active ext and eccentric flexion and allowing ankle mobility, tends to compensate through ankles for lack of strength in R quad and glut for stability. Pt reports is so please feeling tiring in her R HS by end of tx. Physical Therapy Plan Frequency and Duration Frequency of Treatment 2x/Week Plan of Care Start Date 10/25/23 Plan of Care End Date 01/23/24 Therapeutic Interventions Therapeutic Interventions Balance Training,Coordination Training,Gait Training,Home Exercise Program,Joint Mobilizations,Manual Therapy, Neuromuscular Re-education, Patient/Caregiver Education, Self-Care/Home Management, Sensory Integration,Soft Tissue Mobilization, Therapeutic Activities, Therapeutic Exercises Next Visit Focus/Plan Next Note Type Treatment Note Next Visit Plan Continue functional RLE strengthening. SPC training POC: Balance Outdoor gait training with SPC , revisit step ups on scale, possibly stagger stance sit to stand
--- NOTE | 2023-12-21 16:26 | PT.OTN ---
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, right leg, subsequent encounter (12/21/23) Other specified postprocedural states (12/21/23) Physical Therapy Treatment Note PT-OP-A Visit Information Start: 05/05/23 15:26 Freq: Status: Active Protocol: Document 12/21/23 13:41 AB (Rec: 12/21/23 16:26 AB [id number]) Out-Patient Physical Therapy Visit Information Visit Information Visit Type Treatment Note Visit Start Time 14:33 Visit Stop Time 15:15 Visit Number 60 Number of STRIP CATCHER Visits 3 Evaluation Information Evaluation Date 05/05/23 PT-OP-B Current Condition Start: 05/05/23 15:26 Freq: Status: Active Protocol: Document 05/05/23 13:50 DCW (Rec: 05/05/23 15:48 DCW [id number]) Current Condition History of Current Condition Onset Date 12/31/22 Current Complaints R LE weakness, falls, neuromuscular dysfunction History of Current Condition Pt is a 73 year old female presenting with a complex recent medical history. Pt was brought to ED on 12/31/22 by EMS for nausea, vomiting, and generalized weakness. Was found to have cerebellar bleed and was transferred to [facility]. 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 Pt was at [facility] for 5 1/2 weeks, and then transferred to a rehab facility in [place] for another two months. Pt reports that at [facility], she was up walking around fairly well, but then developed severe nerve pain in her right leg. Found to have a large hematoma in her right low back/hip which ended up compressing right LE nerves. This resulted in loss of motor function and sensory imput from right leg. Pt admits she was miserable waiting for the pain to stop. Due to motor dysfunction in her right leg, was having increased difficulty walking, and spent her time in rehab in a wheelchair. Leg weakness resulted in two fals, both of which yusef her right knee. Pt has recently been working with home health, and is now doing well enough to progress to out-patient PT. Has been walking at home with a FWW, just obtained a 4WW, but not comfortable with it yet. Reports she can get herself to the kitchen, and furniture surf using the countertop and cabinets, and is able to dress and perform pericare independently. Still requires assistance with showering. Has friend helping as caregiver. Treatment Goals Patient/Caregiver Goals Pt's stated goals are to learn how to properly use 4WW, get right LE moving better, and walk on her own. PT-OP-C Subjective Start: 05/05/23 15:26 Freq: Status: Active Protocol: Document 12/21/23 13:41 AB (Rec: 12/21/23 16:26 AB [id number]) OP-PT Subjective Patient Comments Patient Comments Patient reports when she does anything too long her knee swells. Patient reports for the most part she feels stiffness, comments when she looks down she she sees the swelling. Patient reports she was sore post ambulation outdoors previous session HS and ITB area right LE, but was excited so she put her step at home up to 6 inches and is doing X 10 twice day. Patient reports she did her step ups and calf stretch already today . PT-OP-E Functional Tests Start: 05/05/23 15:26 Freq: Status: Active Protocol: Document 12/03/23 11:18 AB (Rec: 12/03/23 12:16 AB [id number]) Functional Tests 6 Minute Walk Test Distance 645 Device Used SPC Comments Patient had Covid over past week, comments feeling sweaty start of tests PT-OP-G Mobility & Gait Start: 05/05/23 15:26 Freq: Status: Active Protocol: Document 10/25/23 11:15 DCW (Rec: 10/25/23 11:36 DCW [id number]) OP Gait Assessment Gait Gait Assistance Required: Standby Assistance Distance (Feet) 628 Assistive Devices Assistive Device Gait Belt,Straight Cane Comments Gait Comments Improving motor control of right quad during gait PT-OP-H Neuro Start: 05/05/23 15:26 Freq: Status: Active Protocol: Document 10/25/23 11:15 DCW (Rec: 10/25/23 11:36 DCW [id number]) Sensation Evaluation Gross Sensation Gross Sensation Right LE Impaired Sensation Description Numbness,Tingling PT-OP-M Strength Start: 05/05/23 15:26 Freq: Status: Active Protocol: Document 10/25/23 11:15 DCW (Rec: 10/25/23 11:36 DCW [id number]) Hip Strength Hip Manual Muscle Testing Right Flexion (L2) 3 Fair Extension (S1) 4+ Good+ Abduction 4- Good- Adduction 4- Good- Left Flexion (L2) 4+ Good+ Extension (S1) 4+ Good+ Abduction 4+ Good+ Adduction 4+ Good+ Knee Strength Knee Manual Muscle Testing Right Flexion (S2) 5 Normal Extension (L3) 2 Poor Left Flexion (S2) 5 Normal Extension (L3) 5 Normal Ankle/Foot Strength Ankle and Foot Manual Muscle Testing Right Dorsiflexion (L4) 4+ Good+ Plantarflexion (S1) 4+ Good+ Left Dorsiflexion (L4) 4+ Good+ Plantarflexion (S1) 4+ Good+ PT-OP-O Vestibular Start: 06/24/23 12:49 Freq: Status: Active Protocol: Document 06/24/23 12:00 DCW (Rec: 06/24/23 12:49 DCW [id number]) Vestibular Assessment Auditory Tests [place] Test Within normal limits Rinne Test Negative Air Conduction Results Equal Visual Testing Smooth Pursuits Horizontal WNL Smooth Pursuits Vertical WNL Saccades Horizontal WNL Heave Test Positive Bilateral Thrust Head Positive Bilateral Spontaneous Nystagmus Negative Positional Testing [place]-Hallpike Negative Left,Negative Right Rolling Test Negative Left,Negative Right PT-OP-Q Treatments Start: 05/05/23 15:26 Freq: Status: Active Protocol: Document 12/21/23 13:41 AB (Rec: 12/21/23 16:26 AB [id number]) Gym Equipment Shuttle Balance Red Details Stagger, and mini squat Comments CGA, head turns and visual scanning Therapeutic Exercises Supine Exercises AROM heel slide Supine Exercise Name AROM Side right Equipment Used X10 Comments Patient ed to discontinue using UE to position LE as is able to perform HS Sidelying Exercises sidelying knee extension Sidelying Exercise Name AROM Side right Resistance level 2 Reps/Minutes X15 Sitting Exercises seated hip abduction Equipment Used level 4 Reps/Minutes 2 X 15 and one minute hold Comments prior to balance exercise tapping to facilitate quad with seated quad set Sitting Exercise Name LAQ this session Side right Reps/Minutes X10 Comments assist to fully extend, tapping then patient holds and lowers LE Manual Therapy Treatment Soft Tissue Mobilization STM quad and hamstring right Le Body Location for swelling and areas of increased density right quad Mobilization Type Cross-Friction,Rolling,Other Intensity/Depth Moderate Body Position Hooklying Comments Monitored for pain Manual Techniques PROM hamstring stretch right LE Body Location right hamstring Body Position Hooklying Reps/Duration contract relax X3 Comments post STM Neuro Re-Education Treatment Balance Activities SLS Details on and off foam Comments CGA step up taps alternating Details CGA patient hands above bars to use as needed Equipment standing on foam 6 inch step Reps/Duration X15 tandem stepping Details CGA patient hands above bars to use as needed Reps/Duration 10 feet X 6 PT-OP-R Modalities Start: 05/10/23 13:44 Freq: Status: Active Protocol: Document 07/09/23 10:15 AB (Rec: 07/09/23 11:36 AB [id number]) Electric Stimulation Electric Stimulation [place] Stimulation Body Location right quad Intensity 25 Ramp 0.5 Comments 10 on 30 off, performed quad sets, sidelying knee extension from ~90 deg flexion, LAQ AA as unable on initial trials PT-OP-T Assessment and Plan Start: 05/05/23 15:26 Freq: Status: Active Protocol: Document 12/21/23 13:41 AB (Rec: 12/21/23 16:26 AB [id number]) Physical Therapy Assessment Goals Three Impairment Pt currently demonstrating 0/5 MMT right quad Short Term Goal (STG) Pt to exhibit 2-/5 MMT or greater of right quad in order to improve ability to limit knee buckling. STG Duration Met Fdc Goal (LTG) Pt to exhibit 3/5 MMT or greater of right quad in order to improve ability to limit knee buckling. LTG Duration 01/23/24 Two Impairment Pt ambulates 174' during Two Minute Walk Test using FWW Short Term Goal (STG) Pt to exhibit ability to complete full 6MWT with no rest breaks using LRAD, ambulating >600' in order to demonstrate improve gait speed and activity tolerance STG Duration Met Fdc Goal (LTG) Pt to complete 6MWT with a gait speed >1.97 ft/sec, as this cutoff is an indication of further functional decline in older adults. LTG Duration 01/23/24 One Impairment Pt does not have an appropriate home exercise program Short Term Goal (STG) Pt to be independent and compliant with an appropriate HEP STG Duration 12/26/23 - improving Assessment Summary Assessment Patient reports she will have to use ice tonight. Able to hold nearly full extension right knee in long arc quad position and lower slowly post tapping for facilitation, but continues to be unable to extend through full AROM. Physical Therapy Plan Frequency and Duration Frequency of Treatment 2x/Week Plan of Care Start Date 10/25/23 Plan of Care End Date 01/23/24 Next Visit Focus/Plan Next Note Type Treatment Note Next Visit Plan Continue functional RLE strengthening. SPC training POC: Balance Outdoor gait training with SPC ,
--- NOTE | 2023-12-24 09:48 | PT.OTN ---
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, right leg, subsequent encounter (12/24/23) Other specified postprocedural states (12/24/23) Physical Therapy Treatment Note PT-OP-A Visit Information Start: 05/05/23 15:26 Freq: Status: Active Protocol: Document 12/24/23 09:00 DCW (Rec: 12/24/23 09:48 DCW [id number]) Out-Patient Physical Therapy Visit Information Visit Information Visit Type Treatment Note Visit Start Time 09:00 Visit Stop Time 09:45 Visit Number 61 Number of FINANCIAL AID COORDINATOR Visits 0 Evaluation Information Evaluation Date 05/05/23 PT-OP-B Current Condition Start: 05/05/23 15:26 Freq: Status: Active Protocol: Document 05/05/23 13:50 DCW (Rec: 05/05/23 15:48 DCW [id number]) Current Condition History of Current Condition Onset Date 12/31/22 Current Complaints R LE weakness, falls, neuromuscular dysfunction History of Current Condition Pt is a 73 year old female presenting with a complex recent medical history. Pt was brought to ED on 12/31/22 by EMS for nausea, vomiting, and generalized weakness. Was found to have cerebellar bleed and was transferred to [facility]. 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 Pt was at [facility] for 5 1/2 weeks, and then transferred to a rehab facility in [place] for another two months. Pt reports that at [facility], she was up walking around fairly well, but then developed severe nerve pain in her right leg. Found to have a large hematoma in her right low back/hip which ended up compressing right LE nerves. This resulted in loss of motor function and sensory imput from right leg. Pt admits she was miserable waiting for the pain to stop. Due to motor dysfunction in her right leg, was having increased difficulty walking, and spent her time in rehab in a wheelchair. Leg weakness resulted in two fals, both of which yusef her right knee. Pt has recently been working with home health, and is now doing well enough to progress to out-patient PT. Has been walking at home with a FWW, just obtained a 4WW, but not comfortable with it yet. Reports she can get herself to the kitchen, and furniture surf using the countertop and cabinets, and is able to dress and perform pericare independently. Still requires assistance with showering. Has friend helping as caregiver. Treatment Goals Patient/Caregiver Goals Pt's stated goals are to learn how to properly use 4WW, get right LE moving better, and walk on her own. PT-OP-C Subjective Start: 05/05/23 15:26 Freq: Status: Active Protocol: Document 12/24/23 09:00 DCW (Rec: 12/24/23 09:48 DCW [id number]) OP-PT Subjective Patient Comments Patient Comments Things are good, I'm feeling good! PT-OP-E Functional Tests Start: 05/05/23 15:26 Freq: Status: Active Protocol: Document 12/03/23 11:18 AB (Rec: 12/03/23 12:16 AB [id number]) Functional Tests 6 Minute Walk Test Distance 645 Device Used SPC Comments Patient had Covid over past week, comments feeling sweaty start of tests PT-OP-G Mobility & Gait Start: 05/05/23 15:26 Freq: Status: Active Protocol: Document 10/25/23 11:15 DCW (Rec: 10/25/23 11:36 DCW [id number]) OP Gait Assessment Gait Gait Assistance Required: Standby Assistance Distance (Feet) 628 Assistive Devices Assistive Device Gait Belt,Straight Cane Comments Gait Comments Improving motor control of right quad during gait PT-OP-H Neuro Start: 05/05/23 15:26 Freq: Status: Active Protocol: Document 10/25/23 11:15 DCW (Rec: 10/25/23 11:36 DCW [id number]) Sensation Evaluation Gross Sensation Gross Sensation Right LE Impaired Sensation Description Numbness,Tingling PT-OP-M Strength Start: 05/05/23 15:26 Freq: Status: Active Protocol: Document 10/25/23 11:15 DCW (Rec: 10/25/23 11:36 DCW [id number]) Hip Strength Hip Manual Muscle Testing Right Flexion (L2) 3 Fair Extension (S1) 4+ Good+ Abduction 4- Good- Adduction 4- Good- Left Flexion (L2) 4+ Good+ Extension (S1) 4+ Good+ Abduction 4+ Good+ Adduction 4+ Good+ Knee Strength Knee Manual Muscle Testing Right Flexion (S2) 5 Normal Extension (L3) 2 Poor Left Flexion (S2) 5 Normal Extension (L3) 5 Normal Ankle/Foot Strength Ankle and Foot Manual Muscle Testing Right Dorsiflexion (L4) 4+ Good+ Plantarflexion (S1) 4+ Good+ Left Dorsiflexion (L4) 4+ Good+ Plantarflexion (S1) 4+ Good+ PT-OP-O Vestibular Start: 06/24/23 12:49 Freq: Status: Active Protocol: Document 06/24/23 12:00 DCW (Rec: 06/24/23 12:49 DCW [id number]) Vestibular Assessment Auditory Tests Zurita Test Within normal limits Rinne Test Negative Air Conduction Results Equal Visual Testing Smooth Pursuits Horizontal WNL Smooth Pursuits Vertical WNL Saccades Horizontal WNL Heave Test Positive Bilateral Thrust Head Positive Bilateral Spontaneous Nystagmus Negative Positional Testing Ortega-Hallpike Negative Left,Negative Right Rolling Test Negative Left,Negative Right PT-OP-Q Treatments Start: 05/05/23 15:26 Freq: Status: Active Protocol: Document 12/24/23 09:00 DCW (Rec: 12/24/23 09:48 DCW [id number]) Therapeutic Exercises Sitting Exercises tapping to facilitate quad with seated quad set Sitting Exercise Name LAQ this session Side right Reps/Minutes X10 Comments assist to fully extend, tapping then patient holds and lowers LE Therapeutic Activity Therapeutic Activity Reaching down Name Ball/cone transfers Gait Training Gait Activity /s AD Description without device Level of Assistance CGA Treatment Focus cued soft R knee gait phases Comments Side-stepping, forward Neuro Re-Education Treatment Balance Activities Mats with objects Details Uneven surfaces: mat over objects Equipment SPC, mat/rocker bd/disc, 2 bal beam, wooden wedges Comments Fwd: step to/receiprocal patterning cued R soft knee/no locking PT-OP-R Modalities Start: 05/10/23 13:44 Freq: Status: Active Protocol: Document 07/09/23 10:15 AB (Rec: 07/09/23 11:36 AB [id number]) Electric Stimulation Electric Stimulation [place]er Stimulation Body Location right quad Intensity 25 Ramp 0.5 Comments 10 on 30 off, performed quad sets, sidelying knee extension from ~90 deg flexion, LAQ AA as unable on initial trials PT-OP-T Assessment and Plan Start: 05/05/23 15:26 Freq: Status: Active Protocol: Document 12/24/23 09:00 [facility] (Rec: 12/24/23 09:48 [facility] [id number]) Physical Therapy Assessment Impairments Impairments Balance,Functional Activities, Functional Mobility,Pain,ROM, Sensation,Soft Tissue Mobility ,Strength,Tone,Transfers Goals Three Impairment Pt currently demonstrating 0/5 MMT right quad Short Term Goal (STG) Pt to exhibit 2-/5 MMT or greater of right quad in order to improve ability to limit knee buckling. STG Duration Met Alf Goal (LTG) Pt to exhibit 3/5 MMT or greater of right quad in order to improve ability to limit knee buckling. LTG Duration 01/23/24 Two Impairment Pt ambulates 174' during Two Minute Walk Test using FWW Short Term Goal (STG) Pt to exhibit ability to complete full 6MWT with no rest breaks using LRAD, ambulating >600' in order to demonstrate improve gait speed and activity tolerance STG Duration Met Stonemason Goal (LTG) Pt to complete 6MWT with a gait speed >1.97 ft/sec, as this cutoff is an indication of further functional decline in older adults. LTG Duration 01/23/24 One Impairment Pt does not have an appropriate home exercise program Short Term Goal (STG) Pt to be independent and compliant with an appropriate HEP STG Duration 12/26/23 - improving Assessment Summary Assessment Pt noted difficulty with bending over to pickle pumper items on the floor, so introduced ball/cone transfers. Pt did well, but required verbal reminders to not support self by placing hand on thigh. Pt continues to progress with quad function. Physical Therapy Plan Frequency and Duration Frequency of Treatment 2x/Week Plan of Care Start Date 10/25/23 Plan of Care End Date 01/23/24 Therapeutic Interventions Therapeutic Interventions Balance Training,Coordination Training,Gait Training,Home Exercise Program,Joint Mobilizations,Manual Therapy, Neuromuscular Re-education, Patient/Caregiver Education, Self-Care/Home Management, Sensory Integration,Soft Tissue Mobilization, Therapeutic Activities, Therapeutic Exercises Next Visit Focus/Plan Next Note Type Treatment Note Next Visit Plan Continue functional RLE strengthening. SPC training POC: Balance Outdoor gait training with SPC ,
--- NOTE | 2023-12-27 16:44 | PT.OTN ---
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, right leg, subsequent encounter (12/27/23) Other specified postprocedural states (12/27/23) Physical Therapy Treatment Note PT-OP-A Visit Information Start: 05/05/23 15:26 Freq: Status: Active Protocol: Document 12/27/23 16:00 DCW (Rec: 12/27/23 16:44 DCW [id number]) Out-Patient Physical Therapy Visit Information Visit Information Visit Type Treatment Note Visit Start Time 16:00 Visit Stop Time 16:45 Visit Number 62 Number of SUPERVISOR PHOTOCOMPOSITION Visits 0 Evaluation Information Evaluation Date 05/05/23 PT-OP-B Current Condition Start: 05/05/23 15:26 Freq: Status: Active Protocol: Document 05/05/23 13:50 DCW (Rec: 05/05/23 15:48 DCW [id number]) Current Condition History of Current Condition Onset Date 12/31/22 Current Complaints R LE weakness, falls, neuromuscular dysfunction History of Current Condition Pt is a 73 year old female presenting with a complex recent medical history. Pt was brought to ED on 12/31/22 by EMS for nausea, vomiting, and generalized weakness. Was found to have cerebellar bleed and was transferred to [facility]. 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 Pt was at [facility] for 5 1/2 weeks, and then transferred to a rehab facility in [place] for another two months. Pt reports that at [facility], she was up walking around fairly well, but then developed severe nerve pain in her right leg. Found to have a large hematoma in her right low back/hip which ended up compressing right LE nerves. This resulted in loss of motor function and sensory imput from right leg. Pt admits she was miserable waiting for the pain to stop. Due to motor dysfunction in her right leg, was having increased difficulty walking, and spent her time in rehab in a wheelchair. Leg weakness resulted in two fals, both of which yusef her right knee. Pt has recently been working with home health, and is now doing well enough to progress to out-patient PT. Has been walking at home with a FWW, just obtained a 4WW, but not comfortable with it yet. Reports she can get herself to the kitchen, and furniture surf using the countertop and cabinets, and is able to dress and perform pericare independently. Still requires assistance with showering. Has friend helping as caregiver. Treatment Goals Patient/Caregiver Goals Pt's stated goals are to learn how to properly use 4WW, get right LE moving better, and walk on her own. PT-OP-C Subjective Start: 05/05/23 15:26 Freq: Status: Active Protocol: Document 12/27/23 16:00 DCW (Rec: 12/27/23 16:44 DCW [id number]) OP-PT Subjective Patient Comments Patient Comments We're moving forward. PT-OP-E Functional Tests Start: 05/05/23 15:26 Freq: Status: Active Protocol: Document 12/03/23 11:18 AB (Rec: 12/03/23 12:16 AB [id number]) Functional Tests 6 Minute Walk Test Distance 645 Device Used SPC Comments Patient had Covid over past week, comments feeling sweaty start of tests PT-OP-G Mobility & Gait Start: 05/05/23 15:26 Freq: Status: Active Protocol: Document 10/25/23 11:15 DCW (Rec: 10/25/23 11:36 DCW [id number]) OP Gait Assessment Gait Gait Assistance Required: Standby Assistance Distance (Feet) 628 Assistive Devices Assistive Device Gait Belt,Straight Cane Comments Gait Comments Improving motor control of right quad during gait PT-OP-H Neuro Start: 05/05/23 15:26 Freq: Status: Active Protocol: Document 10/25/23 11:15 DCW (Rec: 10/25/23 11:36 DCW [id number]) Sensation Evaluation Gross Sensation Gross Sensation Right LE Impaired Sensation Description Numbness,Tingling PT-OP-M Strength Start: 05/05/23 15:26 Freq: Status: Active Protocol: Document 10/25/23 11:15 DCW (Rec: 10/25/23 11:36 DCW [id number]) Hip Strength Hip Manual Muscle Testing Right Flexion (L2) 3 Fair Extension (S1) 4+ Good+ Abduction 4- Good- Adduction 4- Good- Left Flexion (L2) 4+ Good+ Extension (S1) 4+ Good+ Abduction 4+ Good+ Adduction 4+ Good+ Knee Strength Knee Manual Muscle Testing Right Flexion (S2) 5 Normal Extension (L3) 2 Poor Left Flexion (S2) 5 Normal Extension (L3) 5 Normal Ankle/Foot Strength Ankle and Foot Manual Muscle Testing Right Dorsiflexion (L4) 4+ Good+ Plantarflexion (S1) 4+ Good+ Left Dorsiflexion (L4) 4+ Good+ Plantarflexion (S1) 4+ Good+ PT-OP-O Vestibular Start: 06/24/23 12:49 Freq: Status: Active Protocol: Document 06/24/23 12:00 DCW (Rec: 06/24/23 12:49 DCW [id number]) Vestibular Assessment Auditory Tests Zurita Test Within normal limits Rinne Test Negative Air Conduction Results Equal Visual Testing Smooth Pursuits Horizontal WNL Smooth Pursuits Vertical WNL Saccades Horizontal WNL Heave Test Positive Bilateral Thrust Head Positive Bilateral Spontaneous Nystagmus Negative Positional Testing Ortega-Hallpike Negative Left,Negative Right Rolling Test Negative Left,Negative Right PT-OP-Q Treatments Start: 05/05/23 15:26 Freq: Status: Active Protocol: Document 12/27/23 16:00 DCW (Rec: 12/27/23 16:44 DCW [id number]) Gym Equipment Shuttle Balance Red Details WBOS, Stagger Comments Balloon volley Therapeutic Exercises Sitting Exercises tapping to facilitate quad with seated quad set Sitting Exercise Name LAQ this session Side right Reps/Minutes X10 Comments assist to fully extend, tapping then patient holds and lowers LE Therapeutic Activity Therapeutic Activity Reaching down Name Ball/cone transfers Comments Forward/Backward ambulation Gait Training Gait Activity Cane Description outside grass incline/decline, srairs Device Used SPC Level of Assistance CGA/Close SBA Treatment Focus VC for feet shoulder width apart PT-OP-R Modalities Start: 05/10/23 13:44 Freq: Status: Active Protocol: Document 07/09/23 10:15 AB (Rec: 07/09/23 11:36 AB [id number]) Electric Stimulation Electric Stimulation [place] Stimulation Body Location right quad Intensity 25 Ramp 0.5 Comments 10 on 30 off, performed quad sets, sidelying knee extension from ~90 deg flexion, LAQ AA as unable on initial trials PT-OP-T Assessment and Plan Start: 05/05/23 15:26 Freq: Status: Active Protocol: Document 12/27/23 16:00 DCW (Rec: 12/27/23 16:44 DCW [id number]) Physical Therapy Assessment Impairments Impairments Balance,Functional Activities, Functional Mobility,Pain,ROM, Sensation,Soft Tissue Mobility ,Strength,Tone,Transfers Goals Three Impairment Pt currently demonstrating 0/5 MMT right quad Short Term Goal (STG) Pt to exhibit 2-/5 MMT or greater of right quad in order to improve ability to limit knee buckling. STG Duration Met Mcfp Goal (LTG) Pt to exhibit 3/5 MMT or greater of right quad in order to improve ability to limit knee buckling. LTG Duration 01/23/24 Two Impairment Pt ambulates 174' during Two Minute Walk Test using FWW Short Term Goal (STG) Pt to exhibit ability to complete full 6MWT with no rest breaks using LRAD, ambulating >600' in order to demonstrate improve gait speed and activity tolerance STG Duration Met Machine Cage Maker Goal (LTG) Pt to complete 6MWT with a gait speed >1.97 ft/sec, as this cutoff is an indication of further functional decline in older adults. LTG Duration 01/23/24 One Impairment Pt does not have an appropriate home exercise program Short Term Goal (STG) Pt to be independent and compliant with an appropriate HEP STG Duration 12/26/23 - improving Assessment Summary Assessment Pt continues to slowly progress, much improvement with quad control when using tapping facilitation. Doing better with cane use, no instances of LOB out walking on outdoor uneven surfaces. Physical Therapy Plan Frequency and Duration Frequency of Treatment 2x/Week Plan of Care Start Date 10/25/23 Plan of Care End Date 01/23/24 Therapeutic Interventions Therapeutic Interventions Balance Training,Coordination Training,Gait Training,Home Exercise Program,Joint Mobilizations,Manual Therapy, Neuromuscular Re-education, Patient/Caregiver Education, Self-Care/Home Management, Sensory Integration,Soft Tissue Mobilization, Therapeutic Activities, Therapeutic Exercises Next Visit Focus/Plan Next Note Type Treatment Note Next Visit Plan Continue functional RLE strengthening. SPC training POC: Balance Outdoor gait training with SPC ,
--- NOTE | 2023-12-31 16:33 | PT.OTN ---
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, right leg, subsequent encounter (12/31/23) Other specified postprocedural states (12/31/23) Physical Therapy Treatment Note PT-OP-A Visit Information Start: 05/05/23 15:26 Freq: Status: Active Protocol: Document 12/31/23 13:48 AB (Rec: 12/31/23 16:33 AB [id number]) Out-Patient Physical Therapy Visit Information Visit Information Visit Type Treatment Note Visit Start Time 13:48 Visit Stop Time 14:33 Visit Number 63 Number of SUPERVISOR SALVAGE Visits 1 Evaluation Information Evaluation Date 05/05/23 PT-OP-B Current Condition Start: 05/05/23 15:26 Freq: Status: Active Protocol: Document 05/05/23 13:50 DCW (Rec: 05/05/23 15:48 DCW [id number]) Current Condition History of Current Condition Onset Date 12/31/22 Current Complaints R LE weakness, falls, neuromuscular dysfunction History of Current Condition Pt is a 73 year old female presenting with a complex recent medical history. Pt was brought to ED on 12/31/22 by EMS for nausea, vomiting, and generalized weakness. Was found to have cerebellar bleed and was transferred to [facility]. 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 Pt was at [facility] for 5 1/2 weeks, and then transferred to a rehab facility in [place] for another two months. Pt reports that at [facility], she was up walking around fairly well, but then developed severe nerve pain in her right leg. Found to have a large hematoma in her right low back/hip which ended up compressing right LE nerves. This resulted in loss of motor function and sensory imput from right leg. Pt admits she was miserable waiting for the pain to stop. Due to motor dysfunction in her right leg, was having increased difficulty walking, and spent her time in rehab in a wheelchair. Leg weakness resulted in two fals, both of which yusef her right knee. Pt has recently been working with home health, and is now doing well enough to progress to out-patient PT. Has been walking at home with a FWW, just obtained a 4WW, but not comfortable with it yet. Reports she can get herself to the kitchen, and furniture surf using the countertop and cabinets, and is able to dress and perform pericare independently. Still requires assistance with showering. Has friend helping as caregiver. Treatment Goals Patient/Caregiver Goals Pt's stated goals are to learn how to properly use 4WW, get right LE moving better, and walk on her own. PT-OP-C Subjective Start: 05/05/23 15:26 Freq: Status: Active Protocol: Document 12/31/23 13:48 AB (Rec: 12/31/23 16:33 AB [id number]) OP-PT Subjective Patient Comments Patient Comments Patient reports swelling and stiffness right knee persists. Patient reports she was able to perform a SLR off her ottoman keeping the knee straight post tapping to facilitate at home. Patient reports she spoke to GP regarding knee swelling and she may an MRI. PT-OP-E Functional Tests Start: 05/05/23 15:26 Freq: Status: Active Protocol: Document 12/03/23 11:18 AB (Rec: 12/03/23 12:16 AB [id number]) Functional Tests 6 Minute Walk Test Distance 645 Device Used SPC Comments Patient had Covid over past week, comments feeling sweaty start of tests PT-OP-G Mobility & Gait Start: 05/05/23 15:26 Freq: Status: Active Protocol: Document 10/25/23 11:15 DCW (Rec: 10/25/23 11:36 DCW [id number]) OP Gait Assessment Gait Gait Assistance Required: Standby Assistance Distance (Feet) 628 Assistive Devices Assistive Device Gait Belt,Straight Cane Comments Gait Comments Improving motor control of right quad during gait PT-OP-H Neuro Start: 05/05/23 15:26 Freq: Status: Active Protocol: Document 10/25/23 11:15 DCW (Rec: 10/25/23 11:36 DCW [id number]) Sensation Evaluation Gross Sensation Gross Sensation Right LE Impaired Sensation Description Numbness,Tingling PT-OP-M Strength Start: 05/05/23 15:26 Freq: Status: Active Protocol: Document 10/25/23 11:15 DCW (Rec: 10/25/23 11:36 DCW [id number]) Hip Strength Hip Manual Muscle Testing Right Flexion (L2) 3 Fair Extension (S1) 4+ Good+ Abduction 4- Good- Adduction 4- Good- Left Flexion (L2) 4+ Good+ Extension (S1) 4+ Good+ Abduction 4+ Good+ Adduction 4+ Good+ Knee Strength Knee Manual Muscle Testing Right Flexion (S2) 5 Normal Extension (L3) 2 Poor Left Flexion (S2) 5 Normal Extension (L3) 5 Normal Ankle/Foot Strength Ankle and Foot Manual Muscle Testing Right Dorsiflexion (L4) 4+ Good+ Plantarflexion (S1) 4+ Good+ Left Dorsiflexion (L4) 4+ Good+ Plantarflexion (S1) 4+ Good+ PT-OP-O Vestibular Start: 06/24/23 12:49 Freq: Status: Active Protocol: Document 06/24/23 12:00 DCW (Rec: 06/24/23 12:49 DCW [id number]) Vestibular Assessment Auditory Tests Zurita Test Within normal limits Rinne Test Negative Air Conduction Results Equal Visual Testing Smooth Pursuits Horizontal WNL Smooth Pursuits Vertical WNL Saccades Horizontal WNL Heave Test Positive Bilateral Thrust Head Positive Bilateral Spontaneous Nystagmus Negative Positional Testing [place]-Hallpike Negative Left,Negative Right Rolling Test Negative Left,Negative Right PT-OP-Q Treatments Start: 05/05/23 15:26 Freq: Status: Active Protocol: Document 12/31/23 13:48 AB (Rec: 12/31/23 16:33 AB [id number]) Therapeutic Exercises Supine Exercises SLR Supine Exercise Name with tapping to facilitate quad HEP Reps/Minutes X10 TKE Supine Exercise Name long sitting HEP Side right Resistance level 5 band Reps/Minutes X15 Comments verbal cues Heel slides Supine Exercise Name AROM Reps/Minutes X1 Comments Patient ed to avoid using UE's to move LE Sitting Exercises seated hip abduction Equipment Used level 5 HEP level 5 band Reps/Minutes 2 X 15 and one minute hold Comments prior to balance exercise tapping to facilitate quad with seated quad set Sitting Exercise Name 1. Seated SLR 2. long arc quad Side right Reps/Minutes X10 each Comments 2.assist to fully extend, tapping then patient holds and lowers LE Manual Therapy Treatment Soft Tissue Mobilization STM quad and hamstring right Le Body Location for swelling and areas of increased density right quad Mobilization Type Cross-Friction,Rolling,Other Intensity/Depth Moderate Body Position Hooklying Comments Monitored for pain Manual Techniques PROM hamstring stretch right LE Body Location right hamstring Body Position Hooklying Reps/Duration X1 Comments post STM Neuro Re-Education Treatment Balance Activities Hurdles Reps/Duration 10 feet X 2 Comments CGA tandem stepping Details CGA patient hands above bars to use as needed Reps/Duration 10 feet X 6 PT-OP-R Modalities Start: 05/10/23 13:44 Freq: Status: Active Protocol: Document 07/09/23 10:15 AB (Rec: 07/09/23 11:36 AB [id number]) Electric Stimulation Electric Stimulation Algerian Stimulation Body Location right quad Intensity 25 Ramp 0.5 Comments 10 on 30 off, performed quad sets, sidelying knee extension from ~90 deg flexion, LAQ AA as unable on initial trials PT-OP-T Assessment and Plan Start: 05/05/23 15:26 Freq: Status: Active Protocol: Document 12/31/23 13:48 AB (Rec: 12/31/23 16:33 AB [id number]) Physical Therapy Assessment Goals Three Impairment Pt currently demonstrating 0/5 MMT right quad Short Term Goal (STG) Pt to exhibit 2-/5 MMT or greater of right quad in order to improve ability to limit knee buckling. STG Duration Met Mcfp Goal (LTG) Pt to exhibit 3/5 MMT or greater of right quad in order to improve ability to limit knee buckling. LTG Duration 01/23/24 Two Impairment Pt ambulates 174' during Two Minute Walk Test using FWW Short Term Goal (STG) Pt to exhibit ability to complete full 6MWT with no rest breaks using LRAD, ambulating >600' in order to demonstrate improve gait speed and activity tolerance STG Duration Met Flour Distributor Goal (LTG) Pt to complete 6MWT with a gait speed >1.97 ft/sec, as this cutoff is an indication of further functional decline in older adults. LTG Duration 01/23/24 One Impairment Pt does not have an appropriate home exercise program Short Term Goal (STG) Pt to be independent and compliant with an appropriate HEP STG Duration 12/26/23 - improving Assessment Summary Assessment Pt able to perform SLR with tapping, but does have a quad lat, now able to peform hip and knee ext with band from long sitting with right LE unable last trial of this exercise with this therapist. Physical Therapy Plan Frequency and Duration Frequency of Treatment 2x/Week Plan of Care Start Date 10/25/23 Plan of Care End Date 01/23/24 Next Visit Focus/Plan Next Note Type Treatment Note Next Visit Plan Continue functional RLE strengthening. SPC training POC: Balance Outdoor gait training with SPC ,
--- NOTE | 2024-01-03 15:16 | PT.OTN ---
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, right leg, subsequent encounter (01/03/24) Other specified postprocedural states (01/03/24) Physical Therapy Treatment Note PT-OP-A Visit Information Start: 05/05/23 15:26 Freq: Status: Active Protocol: Document 01/03/24 14:31 DCW (Rec: 01/03/24 15:15 DCW [id number]) Out-Patient Physical Therapy Visit Information Visit Information Visit Type Treatment Note Visit Start Time 14:31 Visit Stop Time 15:15 Visit Number 64 Number of PRODUCT TESTER Visits 0 Evaluation Information Evaluation Date 05/05/23 PT-OP-B Current Condition Start: 05/05/23 15:26 Freq: Status: Active Protocol: Document 05/05/23 13:50 DCW (Rec: 05/05/23 15:48 DCW [id number]) Current Condition History of Current Condition Onset Date 12/31/22 Current Complaints R LE weakness, falls, neuromuscular dysfunction History of Current Condition Pt is a 73 year old female presenting with a complex recent medical history. Pt was brought to ED on 12/31/22 by EMS for nausea, vomiting, and generalized weakness. Was found to have cerebellar bleed and was transferred to [facility]. 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 Pt was at [facility] for 5 1/2 weeks, and then transferred to a rehab facility in [place] for another two months. Pt reports that at [facility], she was up walking around fairly well, but then developed severe nerve pain in her right leg. Found to have a large hematoma in her right low back/hip which ended up compressing right LE nerves. This resulted in loss of motor function and sensory imput from right leg. Pt admits she was miserable waiting for the pain to stop. Due to motor dysfunction in her right leg, was having increased difficulty walking, and spent her time in rehab in a wheelchair. Leg weakness resulted in two fals, both of which yusef her right knee. Pt has recently been working with home health, and is now doing well enough to progress to out-patient PT. Has been walking at home with a FWW, just obtained a 4WW, but not comfortable with it yet. Reports she can get herself to the kitchen, and furniture surf using the countertop and cabinets, and is able to dress and perform pericare independently. Still requires assistance with showering. Has friend helping as caregiver. Treatment Goals Patient/Caregiver Goals Pt's stated goals are to learn how to properly use 4WW, get right LE moving better, and walk on her own. PT-OP-C Subjective Start: 05/05/23 15:26 Freq: Status: Active Protocol: Document 01/03/24 14:31 DCW (Rec: 01/03/24 15:15 DCW [id number]) OP-PT Subjective Patient Comments Patient Comments Pt feeling good overall, happy with recent progress. PT-OP-E Functional Tests Start: 05/05/23 15:26 Freq: Status: Active Protocol: Document 12/03/23 11:18 AB (Rec: 12/03/23 12:16 AB [id number]) Functional Tests 6 Minute Walk Test Distance 645 Device Used SPC Comments Patient had Covid over past week, comments feeling sweaty start of tests PT-OP-G Mobility & Gait Start: 05/05/23 15:26 Freq: Status: Active Protocol: Document 10/25/23 11:15 DCW (Rec: 10/25/23 11:36 DCW [id number]) OP Gait Assessment Gait Gait Assistance Required: Standby Assistance Distance (Feet) 628 Assistive Devices Assistive Device Gait Belt,Straight Cane Comments Gait Comments Improving motor control of right quad during gait PT-OP-H Neuro Start: 05/05/23 15:26 Freq: Status: Active Protocol: Document 10/25/23 11:15 DCW (Rec: 10/25/23 11:36 DCW [id number]) Sensation Evaluation Gross Sensation Gross Sensation Right LE Impaired Sensation Description Numbness,Tingling PT-OP-M Strength Start: 05/05/23 15:26 Freq: Status: Active Protocol: Document 10/25/23 11:15 DCW (Rec: 10/25/23 11:36 DCW [id number]) Hip Strength Hip Manual Muscle Testing Right Flexion (L2) 3 Fair Extension (S1) 4+ Good+ Abduction 4- Good- Adduction 4- Good- Left Flexion (L2) 4+ Good+ Extension (S1) 4+ Good+ Abduction 4+ Good+ Adduction 4+ Good+ Knee Strength Knee Manual Muscle Testing Right Flexion (S2) 5 Normal Extension (L3) 2 Poor Left Flexion (S2) 5 Normal Extension (L3) 5 Normal Ankle/Foot Strength Ankle and Foot Manual Muscle Testing Right Dorsiflexion (L4) 4+ Good+ Plantarflexion (S1) 4+ Good+ Left Dorsiflexion (L4) 4+ Good+ Plantarflexion (S1) 4+ Good+ PT-OP-O Vestibular Start: 06/24/23 12:49 Freq: Status: Active Protocol: Document 06/24/23 12:00 DCW (Rec: 06/24/23 12:49 DCW [id number]) Vestibular Assessment Auditory Tests Zurita Test Within normal limits Rinne Test Negative Air Conduction Results Equal Visual Testing Smooth Pursuits Horizontal WNL Smooth Pursuits Vertical WNL Saccades Horizontal WNL Heave Test Positive Bilateral Thrust Head Positive Bilateral Spontaneous Nystagmus Negative Positional Testing [place]-Hallpike Negative Left,Negative Right Rolling Test Negative Left,Negative Right PT-OP-Q Treatments Start: 05/05/23 15:26 Freq: Status: Active Protocol: Document 01/03/24 14:31 DCW (Rec: 01/03/24 15:15 DCW [id number]) Gym Equipment Shuttle Recovery Bilateral Squats Resistance 87# Shuttle Recovery Platform Stable Unilateral Squats Details R Resistance 25# (navy) Shuttle Recovery Platform Stable Shuttle Balance Red Details WBOS, Stagger, Lateral weight shift Comments WBOS + Stagger: Balloon volley Sport Cord Blue Exercise Details Resisted 4-way ambulation Cord/Resistance White/blue Comments CGA Therapeutic Exercises Standing Exercises calf stretches on LETI Standing Exercise Name gastroc and soleus Side bilateral Reps/Minutes 60 sec X 2 Sliders Standing Exercise Name Extension/Abduction on furniture slider Side bilateral Comments UE assist, CGA PT-OP-R Modalities Start: 05/10/23 13:44 Freq: Status: Active Protocol: Document 07/09/23 10:15 AB (Rec: 07/09/23 11:36 AB [id number]) Electric Stimulation Electric Stimulation Lebanese Stimulation Body Location right quad Intensity 25 Ramp 0.5 Comments 10 on 30 off, performed quad sets, sidelying knee extension from ~90 deg flexion, LAQ AA as unable on initial trials PT-OP-T Assessment and Plan Start: 05/05/23 15:26 Freq: Status: Active Protocol: Document 01/03/24 14:31 DCW (Rec: 01/03/24 15:15 DCW [id number]) Physical Therapy Assessment Impairments Impairments Balance,Functional Activities, Functional Mobility,Pain,ROM, Sensation,Soft Tissue Mobility ,Strength,Tone,Transfers Goals Three Impairment Pt currently demonstrating 0/5 MMT right quad Short Term Goal (STG) Pt to exhibit 2-/5 MMT or greater of right quad in order to improve ability to limit knee buckling. STG Duration Met Systems Architecture Analyst Goal (LTG) Pt to exhibit 3/5 MMT or greater of right quad in order to improve ability to limit knee buckling. LTG Duration 01/23/24 Two Impairment Pt ambulates 174' during Two Minute Walk Test using FWW Short Term Goal (STG) Pt to exhibit ability to complete full 6MWT with no rest breaks using LRAD, ambulating >600' in order to demonstrate improve gait speed and activity tolerance STG Duration Met Systems Architecture Analyst Goal (LTG) Pt to complete 6MWT with a gait speed >1.97 ft/sec, as this cutoff is an indication of further functional decline in older adults. LTG Duration 01/23/24 One Impairment Pt does not have an appropriate home exercise program Short Term Goal (STG) Pt to be independent and compliant with an appropriate HEP STG Duration 12/26/23 - improving Assessment Summary Assessment Pt continues to show improvement with quad control, able to fully participate in activities without knee buckling. Much more stable with gait using 4WW, SPC, and no AD. Physical Therapy Plan Frequency and Duration Frequency of Treatment 2x/Week Plan of Care Start Date 10/25/23 Plan of Care End Date 01/23/24 Therapeutic Interventions Therapeutic Interventions Balance Training,Coordination Training,Gait Training,Home Exercise Program,Joint Mobilizations,Manual Therapy, Neuromuscular Re-education, Patient/Caregiver Education, Self-Care/Home Management, Sensory Integration,Soft Tissue Mobilization, Therapeutic Activities, Therapeutic Exercises Next Visit Focus/Plan Next Note Type Progress Note Next Visit Plan 10th visit prog note POC: Balance Outdoor gait training with SPC ,
--- NOTE | 2024-01-07 14:28 | PT.OTN ---
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, right leg, subsequent encounter (01/07/24) Other specified postprocedural states (01/07/24) Physical Therapy Treatment Note PT-OP-A Visit Information Start: 05/05/23 15:26 Freq: Status: Active Protocol: Document 01/07/24 13:45 DCW (Rec: 01/07/24 14:28 DCW [id number]) Out-Patient Physical Therapy Visit Information Visit Information Visit Type Progress Note Visit Start Time 13:45 Visit Stop Time 14:30 Visit Number 65 Number of THEATRICAL RIGGER Visits 0 Evaluation Information Evaluation Date 05/05/23 PT-OP-B Current Condition Start: 05/05/23 15:26 Freq: Status: Active Protocol: Document 05/05/23 13:50 DCW (Rec: 05/05/23 15:48 DCW [id number]) Current Condition History of Current Condition Onset Date 12/31/22 Current Complaints R LE weakness, falls, neuromuscular dysfunction History of Current Condition Pt is a 73 year old female presenting with a complex recent medical history. Pt was brought to ED on 12/31/22 by EMS for nausea, vomiting, and generalized weakness. Was found to have cerebellar bleed and was transferred to [facility]. 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 Pt was at [facility] for 5 1/2 weeks, and then transferred to a rehab facility in [place] for another two months. Pt reports that at [facility], she was up walking around fairly well, but then developed severe nerve pain in her right leg. Found to have a large hematoma in her right low back/hip which ended up compressing right LE nerves. This resulted in loss of motor function and sensory imput from right leg. Pt admits she was miserable waiting for the pain to stop. Due to motor dysfunction in her right leg, was having increased difficulty walking, and spent her time in rehab in a wheelchair. Leg weakness resulted in two fals, both of which yusef her right knee. Pt has recently been working with home health, and is now doing well enough to progress to out-patient PT. Has been walking at home with a FWW, just obtained a 4WW, but not comfortable with it yet. Reports she can get herself to the kitchen, and furniture surf using the countertop and cabinets, and is able to dress and perform pericare independently. Still requires assistance with showering. Has friend helping as caregiver. Treatment Goals Patient/Caregiver Goals Pt's stated goals are to learn how to properly use 4WW, get right LE moving better, and walk on her own. PT-OP-C Subjective Start: 05/05/23 15:26 Freq: Status: Active Protocol: Document 01/07/24 13:45 DCW (Rec: 01/07/24 14:28 DCW [id number]) OP-PT Subjective Patient Comments Patient Comments I'm finally recovered from the last time I was here. PT-OP-E Functional Tests Start: 05/05/23 15:26 Freq: Status: Active Protocol: Document 12/03/23 11:18 AB (Rec: 12/03/23 12:16 AB [id number]) Functional Tests 6 Minute Walk Test Distance 645 Device Used SPC Comments Patient had Covid over past week, comments feeling sweaty start of tests PT-OP-G Mobility & Gait Start: 05/05/23 15:26 Freq: Status: Active Protocol: Document 10/25/23 11:15 DCW (Rec: 10/25/23 11:36 DCW [id number]) OP Gait Assessment Gait Gait Assistance Required: Standby Assistance Distance (Feet) 628 Assistive Devices Assistive Device Gait Belt,Straight Cane Comments Gait Comments Improving motor control of right quad during gait PT-OP-H Neuro Start: 05/05/23 15:26 Freq: Status: Active Protocol: Document 10/25/23 11:15 DCW (Rec: 10/25/23 11:36 DCW [id number]) Sensation Evaluation Gross Sensation Gross Sensation Right LE Impaired Sensation Description Numbness,Tingling PT-OP-M Strength Start: 05/05/23 15:26 Freq: Status: Active Protocol: Document 10/25/23 11:15 DCW (Rec: 10/25/23 11:36 DCW [id number]) Hip Strength Hip Manual Muscle Testing Right Flexion (L2) 3 Fair Extension (S1) 4+ Good+ Abduction 4- Good- Adduction 4- Good- Left Flexion (L2) 4+ Good+ Extension (S1) 4+ Good+ Abduction 4+ Good+ Adduction 4+ Good+ Knee Strength Knee Manual Muscle Testing Right Flexion (S2) 5 Normal Extension (L3) 2 Poor Left Flexion (S2) 5 Normal Extension (L3) 5 Normal Ankle/Foot Strength Ankle and Foot Manual Muscle Testing Right Dorsiflexion (L4) 4+ Good+ Plantarflexion (S1) 4+ Good+ Left Dorsiflexion (L4) 4+ Good+ Plantarflexion (S1) 4+ Good+ PT-OP-O Vestibular Start: 06/24/23 12:49 Freq: Status: Active Protocol: Document 06/24/23 12:00 DCW (Rec: 06/24/23 12:49 DCW [id number]) Vestibular Assessment Auditory Tests [place] Test Within normal limits Rinne Test Negative Air Conduction Results Equal Visual Testing Smooth Pursuits Horizontal WNL Smooth Pursuits Vertical WNL Saccades Horizontal WNL Heave Test Positive Bilateral Thrust Head Positive Bilateral Spontaneous Nystagmus Negative Positional Testing [place]-Hallpike Negative Left,Negative Right Rolling Test Negative Left,Negative Right PT-OP-Q Treatments Start: 05/05/23 15:26 Freq: Status: Active Protocol: Document 01/07/24 13:45 DCW (Rec: 01/07/24 14:28 DCW [id number]) Gym Equipment Shuttle Recovery Bilateral Squats Resistance 87# Shuttle Recovery Platform Stable Unilateral Squats Details R Resistance 25# Shuttle Recovery Platform Stable Shuttle Balance Red Details WBOS, Stagger, Lateral weight shift Therapeutic Ball Hip Flexion Exercise Details Resisted hip/knee flexion Ball Size/Color Blue - 45 cm Lv 2 T-band Body Position Supine Therapeutic Exercises Supine Exercises SLR Supine Exercise Name SLR - hold up until fatigue Side right Reps/Minutes X10 Sitting Exercises LAQ Sitting Exercise Name LAQ Side right Comments VCs to limit swing/momentum Neuro Re-Education Treatment Balance Activities Mats with objects Details Hurdles - Uneven surfaces: mat over objects Equipment SPC, mat/rocker bd/disc, 2 bal beam, wooden wedges Comments Fwd: step to/receiprocal patterning cued R soft knee/no locking PT-OP-R Modalities Start: 05/10/23 13:44 Freq: Status: Active Protocol: Document 07/09/23 10:15 AB (Rec: 07/09/23 11:36 AB [id number]) Electric Stimulation Electric Stimulation [place]er Stimulation Body Location right quad Intensity 25 Ramp 0.5 Comments 10 on 30 off, performed quad sets, sidelying knee extension from ~90 deg flexion, LAQ AA as unable on initial trials PT-OP-T Assessment and Plan Start: 05/05/23 15:26 Freq: Status: Active Protocol: Document 01/07/24 13:45 DCW (Rec: 01/07/24 14:28 DCW [id number]) Physical Therapy Assessment Impairments Impairments Balance,Functional Activities, Functional Mobility,Pain,ROM, Sensation,Soft Tissue Mobility ,Strength,Tone,Transfers Goals Three Impairment Pt currently demonstrating 0/5 MMT right quad Short Term Goal (STG) Pt to exhibit 2-/5 MMT or greater of right quad in order to improve ability to limit knee buckling. STG Duration Met Custodial Goal (LTG) Pt to exhibit 3/5 MMT or greater of right quad in order to improve ability to limit knee buckling. LTG Duration 01/23/24 Two Impairment Pt ambulates 174' during Two Minute Walk Test using FWW Short Term Goal (STG) Pt to exhibit ability to complete full 6MWT with no rest breaks using LRAD, ambulating >600' in order to demonstrate improve gait speed and activity tolerance STG Duration Met Forest Ranger Technician Goal (LTG) Pt to complete 6MWT with a gait speed >1.97 ft/sec, as this cutoff is an indication of further functional decline in older adults. LTG Duration 01/23/24 One Impairment Pt does not have an appropriate home exercise program Short Term Goal (STG) Pt to be independent and compliant with an appropriate HEP STG Duration 12/26/23 - improving Assessment Summary Assessment Significant improvement with recent quad control. Improving with both LAQ and SLR, extension laq ~5?, able to isometric hold SLR for 3-4 seconds. Continue to work on improving gait, balance, functional mobility, and quad strength. Physical Therapy Plan Frequency and Duration Frequency of Treatment 2x/Week Plan of Care Start Date 10/25/23 Plan of Care End Date 01/23/24 Therapeutic Interventions Therapeutic Interventions Balance Training,Coordination Training,Gait Training,Home Exercise Program,Joint Mobilizations,Manual Therapy, Neuromuscular Re-education, Patient/Caregiver Education, Self-Care/Home Management, Sensory Integration,Soft Tissue Mobilization, Therapeutic Activities, Therapeutic Exercises Next Visit Focus/Plan Next Note Type Treatment Note Next Visit Plan POC: Balance Outdoor gait training with SPC ,
--- NOTE | 2024-01-10 13:00 | PT.OTN ---
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, right leg, subsequent encounter (01/10/24) Other specified postprocedural states (01/10/24) Physical Therapy Treatment Note PT-OP-A Visit Information Start: 05/05/23 15:26 Freq: Status: Active Protocol: Document 01/10/24 12:15 DCW (Rec: 01/10/24 13:00 DCW [id number]) Out-Patient Physical Therapy Visit Information Visit Information Visit Type Treatment Note Visit Start Time 12:15 Visit Stop Time 13:00 Visit Number 66 Number of AIR ANALYST Visits 0 Evaluation Information Evaluation Date 05/05/23 PT-OP-B Current Condition Start: 05/05/23 15:26 Freq: Status: Active Protocol: Document 05/05/23 13:50 DCW (Rec: 05/05/23 15:48 DCW [id number]) Current Condition History of Current Condition Onset Date 12/31/22 Current Complaints R LE weakness, falls, neuromuscular dysfunction History of Current Condition Pt is a 73 year old female presenting with a complex recent medical history. Pt was brought to ED on 12/31/22 by EMS for nausea, vomiting, and generalized weakness. Was found to have cerebellar bleed and was transferred to [facility]. 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 Pt was at [facility] for 5 1/2 weeks, and then transferred to a rehab facility in [place] for another two months. Pt reports that at [facility], she was up walking around fairly well, but then developed severe nerve pain in her right leg. Found to have a large hematoma in her right low back/hip which ended up compressing right LE nerves. This resulted in loss of motor function and sensory imput from right leg. Pt admits she was miserable waiting for the pain to stop. Due to motor dysfunction in her right leg, was having increased difficulty walking, and spent her time in rehab in a wheelchair. Leg weakness resulted in two fals, both of which yusef her right knee. Pt has recently been working with home health, and is now doing well enough to progress to out-patient PT. Has been walking at home with a FWW, just obtained a 4WW, but not comfortable with it yet. Reports she can get herself to the kitchen, and furniture surf using the countertop and cabinets, and is able to dress and perform pericare independently. Still requires assistance with showering. Has friend helping as caregiver. Treatment Goals Patient/Caregiver Goals Pt's stated goals are to learn how to properly use 4WW, get right LE moving better, and walk on her own. PT-OP-C Subjective Start: 05/05/23 15:26 Freq: Status: Active Protocol: Document 01/10/24 12:15 DCW (Rec: 01/10/24 13:00 DCW [id number]) OP-PT Subjective Patient Comments Patient Comments I really felt it after last time. PT-OP-E Functional Tests Start: 05/05/23 15:26 Freq: Status: Active Protocol: Document 12/03/23 11:18 AB (Rec: 12/03/23 12:16 AB [id number]) Functional Tests 6 Minute Walk Test Distance 645 Device Used SPC Comments Patient had Covid over past week, comments feeling sweaty start of tests PT-OP-G Mobility & Gait Start: 05/05/23 15:26 Freq: Status: Active Protocol: Document 10/25/23 11:15 DCW (Rec: 10/25/23 11:36 DCW [id number]) OP Gait Assessment Gait Gait Assistance Required: Standby Assistance Distance (Feet) 628 Assistive Devices Assistive Device Gait Belt,Straight Cane Comments Gait Comments Improving motor control of right quad during gait PT-OP-H Neuro Start: 05/05/23 15:26 Freq: Status: Active Protocol: Document 10/25/23 11:15 DCW (Rec: 10/25/23 11:36 DCW [id number]) Sensation Evaluation Gross Sensation Gross Sensation Right LE Impaired Sensation Description Numbness,Tingling PT-OP-M Strength Start: 05/05/23 15:26 Freq: Status: Active Protocol: Document 10/25/23 11:15 DCW (Rec: 10/25/23 11:36 DCW [id number]) Hip Strength Hip Manual Muscle Testing Right Flexion (L2) 3 Fair Extension (S1) 4+ Good+ Abduction 4- Good- Adduction 4- Good- Left Flexion (L2) 4+ Good+ Extension (S1) 4+ Good+ Abduction 4+ Good+ Adduction 4+ Good+ Knee Strength Knee Manual Muscle Testing Right Flexion (S2) 5 Normal Extension (L3) 2 Poor Left Flexion (S2) 5 Normal Extension (L3) 5 Normal Ankle/Foot Strength Ankle and Foot Manual Muscle Testing Right Dorsiflexion (L4) 4+ Good+ Plantarflexion (S1) 4+ Good+ Left Dorsiflexion (L4) 4+ Good+ Plantarflexion (S1) 4+ Good+ PT-OP-O Vestibular Start: 06/24/23 12:49 Freq: Status: Active Protocol: Document 06/24/23 12:00 DCW (Rec: 06/24/23 12:49 DCW [id number]) Vestibular Assessment Auditory Tests [place] Test Within normal limits Rinne Test Negative Air Conduction Results Equal Visual Testing Smooth Pursuits Horizontal WNL Smooth Pursuits Vertical WNL Saccades Horizontal WNL Heave Test Positive Bilateral Thrust Head Positive Bilateral Spontaneous Nystagmus Negative Positional Testing [place]-Hallpike Negative Left,Negative Right Rolling Test Negative Left,Negative Right PT-OP-Q Treatments Start: 05/05/23 15:26 Freq: Status: Active Protocol: Document 01/10/24 12:15 DCW (Rec: 01/10/24 12:59 DCW [id number]) Gym Equipment Shuttle Recovery Bilateral Squats Resistance 100# Shuttle Recovery Platform Stable Unilateral Squats Details R Resistance 37# Shuttle Recovery Platform Stable Shuttle Balance Red Details WBOS, Stagger, Lateral weight shift Therapeutic Ball Hip Flexion Exercise Details Resisted hip/knee flexion Ball Size/Color Blue - 45 cm Lv 3 T-band Body Position Supine Therapeutic Exercises Supine Exercises SLR Supine Exercise Name SLR - hold up until fatigue Side right Resistance 1#->0# Reps/Minutes X10 Sidelying Exercises Hip Abduction Sidelying Exercise Name Hip Abduction Side right Sitting Exercises LAQ Sitting Exercise Name LAQ Side right Resistance 1# Comments VCs to limit swing/momentum Standing Exercises step up Standing Exercise Name step up Side right Equipment Used 6 step Reps/Minutes x20 Other Exercises Step Lunge Other Exercise Name BOSU lunge Side bilateral Equipment Used BOSU Comments rails PT-OP-R Modalities Start: 05/10/23 13:44 Freq: Status: Active Protocol: Document 07/09/23 10:15 AB (Rec: 07/09/23 11:36 AB [id number]) Electric Stimulation Electric Stimulation [place] Stimulation Body Location right quad Intensity 25 Ramp 0.5 Comments 10 on 30 off, performed quad sets, sidelying knee extension from ~90 deg flexion, LAQ AA as unable on initial trials PT-OP-T Assessment and Plan Start: 05/05/23 15:26 Freq: Status: Active Protocol: Document 01/10/24 12:15 DCW (Rec: 01/10/24 12:59 DCW [id number]) Physical Therapy Assessment Impairments Impairments Balance,Functional Activities, Functional Mobility,Pain,ROM, Sensation,Soft Tissue Mobility ,Strength,Tone,Transfers Goals Three Impairment Pt currently demonstrating 0/5 MMT right quad Short Term Goal (STG) Pt to exhibit 2-/5 MMT or greater of right quad in order to improve ability to limit knee buckling. STG Duration Met Shelter Goal (LTG) Pt to exhibit 3/5 MMT or greater of right quad in order to improve ability to limit knee buckling. LTG Duration 01/23/24 Two Impairment Pt ambulates 174' during Two Minute Walk Test using FWW Short Term Goal (STG) Pt to exhibit ability to complete full 6MWT with no rest breaks using LRAD, ambulating >600' in order to demonstrate improve gait speed and activity tolerance STG Duration Met Mapping Editor Goal (LTG) Pt to complete 6MWT with a gait speed >1.97 ft/sec, as this cutoff is an indication of further functional decline in older adults. LTG Duration 01/23/24 One Impairment Pt does not have an appropriate home exercise program Short Term Goal (STG) Pt to be independent and compliant with an appropriate HEP STG Duration 12/26/23 - improving Assessment Summary Assessment Struggled significantly with addition of 1# AW to SLR, but minimal change in quality of LAQ with weight. Continue to focus on quad strength, balance, and functional mobility. Physical Therapy Plan Frequency and Duration Frequency of Treatment 2x/Week Plan of Care Start Date 10/25/23 Plan of Care End Date 01/23/24 Therapeutic Interventions Therapeutic Interventions Balance Training,Coordination Training,Gait Training,Home Exercise Program,Joint Mobilizations,Manual Therapy, Neuromuscular Re-education, Patient/Caregiver Education, Self-Care/Home Management, Sensory Integration,Soft Tissue Mobilization, Therapeutic Activities, Therapeutic Exercises Next Visit Focus/Plan Next Note Type Treatment Note Next Visit Plan POC: Balance Outdoor gait training with SPC ,
--- NOTE | 2024-01-14 12:17 | PT.OTN ---
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, right leg, subsequent encounter (01/14/24) Other specified postprocedural states (01/14/24) Physical Therapy Treatment Note PT-OP-A Visit Information Start: 05/05/23 15:26 Freq: Status: Active Protocol: Document 01/14/24 11:30 DCW (Rec: 01/14/24 12:17 DCW [id number]) Out-Patient Physical Therapy Visit Information Visit Information Visit Type Treatment Note Visit Start Time 11:30 Visit Stop Time 12:15 Visit Number 67 Number of DIESEL TRUCK MECHANIC Visits 0 Evaluation Information Evaluation Date 05/05/23 PT-OP-B Current Condition Start: 05/05/23 15:26 Freq: Status: Active Protocol: Document 05/05/23 13:50 DCW (Rec: 05/05/23 15:48 DCW [id number]) Current Condition History of Current Condition Onset Date 12/31/22 Current Complaints R LE weakness, falls, neuromuscular dysfunction History of Current Condition Pt is a 73 year old female presenting with a complex recent medical history. Pt was brought to ED on 12/31/22 by EMS for nausea, vomiting, and generalized weakness. Was found to have cerebellar bleed and was transferred to [facility]. 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 Pt was at [facility] for 5 1/2 weeks, and then transferred to a rehab facility in [place] for another two months. Pt reports that at [facility], she was up walking around fairly well, but then developed severe nerve pain in her right leg. Found to have a large hematoma in her right low back/hip which ended up compressing right LE nerves. This resulted in loss of motor function and sensory imput from right leg. Pt admits she was miserable waiting for the pain to stop. Due to motor dysfunction in her right leg, was having increased difficulty walking, and spent her time in rehab in a wheelchair. Leg weakness resulted in two fals, both of which yusef her right knee. Pt has recently been working with home health, and is now doing well enough to progress to out-patient PT. Has been walking at home with a FWW, just obtained a 4WW, but not comfortable with it yet. Reports she can get herself to the kitchen, and furniture surf using the countertop and cabinets, and is able to dress and perform pericare independently. Still requires assistance with showering. Has friend helping as caregiver. Treatment Goals Patient/Caregiver Goals Pt's stated goals are to learn how to properly use 4WW, get right LE moving better, and walk on her own. PT-OP-C Subjective Start: 05/05/23 15:26 Freq: Status: Active Protocol: Document 01/14/24 11:30 DCW (Rec: 01/14/24 12:17 DCW [id number]) OP-PT Subjective Patient Comments Patient Comments Pt has an out of town visitor for a few days, has been busy, doing well going out and about. PT-OP-E Functional Tests Start: 05/05/23 15:26 Freq: Status: Active Protocol: Document 12/03/23 11:18 AB (Rec: 12/03/23 12:16 AB [id number]) Functional Tests 6 Minute Walk Test Distance 645 Device Used SPC Comments Patient had Covid over past week, comments feeling sweaty start of tests PT-OP-G Mobility & Gait Start: 05/05/23 15:26 Freq: Status: Active Protocol: Document 10/25/23 11:15 DCW (Rec: 10/25/23 11:36 DCW [id number]) OP Gait Assessment Gait Gait Assistance Required: Standby Assistance Distance (Feet) 628 Assistive Devices Assistive Device Gait Belt,Straight Cane Comments Gait Comments Improving motor control of right quad during gait PT-OP-H Neuro Start: 05/05/23 15:26 Freq: Status: Active Protocol: Document 10/25/23 11:15 DCW (Rec: 10/25/23 11:36 DCW [id number]) Sensation Evaluation Gross Sensation Gross Sensation Right LE Impaired Sensation Description Numbness,Tingling PT-OP-M Strength Start: 05/05/23 15:26 Freq: Status: Active Protocol: Document 10/25/23 11:15 DCW (Rec: 10/25/23 11:36 DCW [id number]) Hip Strength Hip Manual Muscle Testing Right Flexion (L2) 3 Fair Extension (S1) 4+ Good+ Abduction 4- Good- Adduction 4- Good- Left Flexion (L2) 4+ Good+ Extension (S1) 4+ Good+ Abduction 4+ Good+ Adduction 4+ Good+ Knee Strength Knee Manual Muscle Testing Right Flexion (S2) 5 Normal Extension (L3) 2 Poor Left Flexion (S2) 5 Normal Extension (L3) 5 Normal Ankle/Foot Strength Ankle and Foot Manual Muscle Testing Right Dorsiflexion (L4) 4+ Good+ Plantarflexion (S1) 4+ Good+ Left Dorsiflexion (L4) 4+ Good+ Plantarflexion (S1) 4+ Good+ PT-OP-O Vestibular Start: 06/24/23 12:49 Freq: Status: Active Protocol: Document 06/24/23 12:00 DCW (Rec: 06/24/23 12:49 DCW [id number]) Vestibular Assessment Auditory Tests Zurita Test Within normal limits Rinne Test Negative Air Conduction Results Equal Visual Testing Smooth Pursuits Horizontal WNL Smooth Pursuits Vertical WNL Saccades Horizontal WNL Heave Test Positive Bilateral Thrust Head Positive Bilateral Spontaneous Nystagmus Negative Positional Testing [place]-Hallpike Negative Left,Negative Right Rolling Test Negative Left,Negative Right PT-OP-Q Treatments Start: 05/05/23 15:26 Freq: Status: Active Protocol: Document 01/14/24 11:30 DCW (Rec: 01/14/24 12:17 DCW [id number]) Gym Equipment Shuttle Recovery Bilateral Squats Resistance 100# Shuttle Recovery Platform Stable Unilateral Squats Details R Resistance 37# Shuttle Recovery Platform Stable Shuttle Balance Red Details WBOS, Stagger, Lateral weight shift Therapeutic Exercises Sitting Exercises LAQ Sitting Exercise Name LAQ Side right Resistance 3# Comments VCs to limit swing/momentum Other Exercises Step Lunge Other Exercise Name BOSU lunge Side bilateral Equipment Used BOSU Comments // bars Step-ups Other Exercise Name Step-ups Side right Equipment Used 6 step Neuro Re-Education Treatment Balance Activities SLS Details on and off foam Comments CGA PT-OP-R Modalities Start: 05/10/23 13:44 Freq: Status: Active Protocol: Document 07/09/23 10:15 AB (Rec: 07/09/23 11:36 AB [id number]) Electric Stimulation Electric Stimulation Moroccan Stimulation Body Location right quad Intensity 25 Ramp 0.5 Comments 10 on 30 off, performed quad sets, sidelying knee extension from ~90 deg flexion, LAQ AA as unable on initial trials PT-OP-T Assessment and Plan Start: 05/05/23 15:26 Freq: Status: Active Protocol: Document 01/14/24 11:30 DCW (Rec: 01/14/24 12:17 DCW [id number]) Physical Therapy Assessment Impairments Impairments Balance,Functional Activities, Functional Mobility,Pain,ROM, Sensation,Soft Tissue Mobility ,Strength,Tone,Transfers Goals Three Impairment Pt currently demonstrating 0/5 MMT right quad Short Term Goal (STG) Pt to exhibit 2-/5 MMT or greater of right quad in order to improve ability to limit knee buckling. STG Duration Met Group Home Goal (LTG) Pt to exhibit 3/5 MMT or greater of right quad in order to improve ability to limit knee buckling. LTG Duration 01/23/24 Two Impairment Pt ambulates 174' during Two Minute Walk Test using FWW Short Term Goal (STG) Pt to exhibit ability to complete full 6MWT with no rest breaks using LRAD, ambulating >600' in order to demonstrate improve gait speed and activity tolerance STG Duration Met Manager Shift Goal (LTG) Pt to complete 6MWT with a gait speed >1.97 ft/sec, as this cutoff is an indication of further functional decline in older adults. LTG Duration 01/23/24 One Impairment Pt does not have an appropriate home exercise program Short Term Goal (STG) Pt to be independent and compliant with an appropriate HEP STG Duration 12/26/23 - improving Assessment Summary Assessment Pt prepping to move to [place] for the winter, will likely be discharging following her appointments next week. Focus on streamlining HEP and progressing gait with least restrictive assistive device. Physical Therapy Plan Frequency and Duration Frequency of Treatment 2x/Week Plan of Care Start Date 10/25/23 Plan of Care End Date 01/23/24 Therapeutic Interventions Therapeutic Interventions Balance Training,Coordination Training,Gait Training,Home Exercise Program,Joint Mobilizations,Manual Therapy, Neuromuscular Re-education, Patient/Caregiver Education, Self-Care/Home Management, Sensory Integration,Soft Tissue Mobilization, Therapeutic Activities, Therapeutic Exercises Next Visit Focus/Plan Next Note Type Treatment Note Next Visit Plan POC: Balance Outdoor gait training with SPC ,
--- NOTE | 2024-01-17 13:25 | PT.OTN ---
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, right leg, subsequent encounter (01/17/24) Other specified postprocedural states (01/17/24) Physical Therapy Treatment Note PT-OP-A Visit Information Start: 05/05/23 15:26 Freq: Status: Active Protocol: Document 01/17/24 10:43 AB (Rec: 01/17/24 13:25 AB [id number]) Out-Patient Physical Therapy Visit Information Visit Information Visit Type Treatment Note Visit Note [id number] Visit Start Time 11:34 Visit Stop Time 12:06 Visit Number 68 Number of ENDOCRINOLOGY SPECIALIST Visits 1 Evaluation Information Evaluation Date 05/05/23 PT-OP-B Current Condition Start: 05/05/23 15:26 Freq: Status: Active Protocol: Document 05/05/23 13:50 DCW (Rec: 05/05/23 15:48 DCW [id number]) Current Condition History of Current Condition Onset Date 12/31/22 Current Complaints R LE weakness, falls, neuromuscular dysfunction History of Current Condition Pt is a 73 year old female presenting with a complex recent medical history. Pt was brought to ED on 12/31/22 by EMS for nausea, vomiting, and generalized weakness. Was found to have cerebellar bleed and was transferred to [facility]. 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 Pt was at [facility] for 5 1/2 weeks, and then transferred to a rehab facility in [place] for another two months. Pt reports that at [facility], she was up walking around fairly well, but then developed severe nerve pain in her right leg. Found to have a large hematoma in her right low back/hip which ended up compressing right LE nerves. This resulted in loss of motor function and sensory imput from right leg. Pt admits she was miserable waiting for the pain to stop. Due to motor dysfunction in her right leg, was having increased difficulty walking, and spent her time in rehab in a wheelchair. Leg weakness resulted in two fals, both of which yusef her right knee. Pt has recently been working with home health, and is now doing well enough to progress to out-patient PT. Has been walking at home with a FWW, just obtained a 4WW, but not comfortable with it yet. Reports she can get herself to the kitchen, and furniture surf using the countertop and cabinets, and is able to dress and perform pericare independently. Still requires assistance with showering. Has friend helping as caregiver. Treatment Goals Patient/Caregiver Goals Pt's stated goals are to learn how to properly use 4WW, get right LE moving better, and walk on her own. PT-OP-C Subjective Start: 05/05/23 15:26 Freq: Status: Active Protocol: Document 01/17/24 10:43 AB (Rec: 01/17/24 13:25 AB [id number]) OP-PT Subjective Patient Comments Patient Comments Patient reports using SPC in home, 4 wheeled walker when out of home in community and when working in the yard. PT-OP-E Functional Tests Start: 05/05/23 15:26 Freq: Status: Active Protocol: Document 12/03/23 11:18 AB (Rec: 12/03/23 12:16 AB [id number]) Functional Tests 6 Minute Walk Test Distance 645 Device Used SPC Comments Patient had Covid over past week, comments feeling sweaty start of tests PT-OP-G Mobility & Gait Start: 05/05/23 15:26 Freq: Status: Active Protocol: Document 10/25/23 11:15 DCW (Rec: 10/25/23 11:36 DCW [id number]) OP Gait Assessment Gait Gait Assistance Required: Standby Assistance Distance (Feet) 628 Assistive Devices Assistive Device Gait Belt,Straight Cane Comments Gait Comments Improving motor control of right quad during gait PT-OP-H Neuro Start: 05/05/23 15:26 Freq: Status: Active Protocol: Document 10/25/23 11:15 DCW (Rec: 10/25/23 11:36 DCW [id number]) Sensation Evaluation Gross Sensation Gross Sensation Right LE Impaired Sensation Description Numbness,Tingling PT-OP-M Strength Start: 05/05/23 15:26 Freq: Status: Active Protocol: Document 10/25/23 11:15 DCW (Rec: 10/25/23 11:36 DCW [id number]) Hip Strength Hip Manual Muscle Testing Right Flexion (L2) 3 Fair Extension (S1) 4+ Good+ Abduction 4- Good- Adduction 4- Good- Left Flexion (L2) 4+ Good+ Extension (S1) 4+ Good+ Abduction 4+ Good+ Adduction 4+ Good+ Knee Strength Knee Manual Muscle Testing Right Flexion (S2) 5 Normal Extension (L3) 2 Poor Left Flexion (S2) 5 Normal Extension (L3) 5 Normal Ankle/Foot Strength Ankle and Foot Manual Muscle Testing Right Dorsiflexion (L4) 4+ Good+ Plantarflexion (S1) 4+ Good+ Left Dorsiflexion (L4) 4+ Good+ Plantarflexion (S1) 4+ Good+ PT-OP-O Vestibular Start: 06/24/23 12:49 Freq: Status: Active Protocol: Document 06/24/23 12:00 DCW (Rec: 06/24/23 12:49 DCW [id number]) Vestibular Assessment Auditory Tests [place] Test Within normal limits Rinne Test Negative Air Conduction Results Equal Visual Testing Smooth Pursuits Horizontal WNL Smooth Pursuits Vertical WNL Saccades Horizontal WNL Heave Test Positive Bilateral Thrust Head Positive Bilateral Spontaneous Nystagmus Negative Positional Testing [place]-Hallpike Negative Left,Negative Right Rolling Test Negative Left,Negative Right PT-OP-Q Treatments Start: 05/05/23 15:26 Freq: Status: Active Protocol: Document 01/17/24 10:43 AB (Rec: 01/17/24 13:25 AB [id number]) Therapeutic Exercises Supine Exercises breathing from diaphragm Supine Exercise Name VC to perform while passenger in car Equipment Used HEP Reps/Minutes ~ one min instructions Comments verbal and tactile cues HS stretch with strap Side right Reps/Minutes 60 sec X 1 SLR Supine Exercise Name SLR - hold up until fatigueHEP Side right Reps/Minutes X10 TKE Supine Exercise Name hooklyingy Side right Resistance level 5 band and level one Comments unable from hooklying Sitting Exercises seated SLR Sitting Exercise Name HEP with tapping to facilitate quads Side right Reps/Minutes 5X Comments verbal cues hamstring stretch Sitting Exercise Name HEP right LE on mat left on floor Reps/Minutes one minute X2 seated hip abduction Equipment Used level 5 HEP level 5 band Reps/Minutes 2 X 15 and one minute hold Comments prior to balance exercise LAQ Sitting Exercise Name LAQ with tapping to facilitate quad Side right Reps/Minutes X6 Comments verbal cues to tap quad distally Standing Exercises squats Standing Exercise Name 1. squat with chair touch 2. mini squat Side bilateral Equipment Used mini squat to HEP Reps/Minutes 1. X 2 2. X 10 Comments reports increased left hip pain squat with chair touch, equalize WS calf stretches on LETI Standing Exercise Name standing with walker braced on mat ( patient dem how she braces [email or web address] Side right Equipment Used HEP Reps/Minutes 60 sec X 2 soleus and X 2 gastroc Comments verbal cues Gait Training Gait Activity Cane Device Used SPC Distance/Duration ~2 min Treatment Focus navigating equipment with decreased time to react, head turns eyes closed Comments CGA Manual Therapy Treatment Consent Patient gave verbal consent for manual Yes treatment Soft Tissue Mobilization STM quad and hamstring right Le Body Location for swelling and areas of increased density right quad Mobilization Type Cross-Friction,Rolling,Other Intensity/Depth Moderate Body Position Hooklying Comments Monitored for pain PT-OP-R Modalities Start: 05/10/23 13:44 Freq: Status: Active Protocol: Document 07/09/23 10:15 AB (Rec: 07/09/23 11:36 AB [id number]) Electric Stimulation Electric Stimulation Yemeni Stimulation Body Location right quad Intensity 25 Ramp 0.5 Comments 10 on 30 off, performed quad sets, sidelying knee extension from ~90 deg flexion, LAQ AA as unable on initial trials PT-OP-T Assessment and Plan Start: 05/05/23 15:26 Freq: Status: Active Protocol: Document 01/17/24 10:43 AB (Rec: 01/17/24 13:25 AB [id number]) Physical Therapy Assessment Goals Three Impairment Pt currently demonstrating 0/5 MMT right quad Short Term Goal (STG) Pt to exhibit 2-/5 MMT or greater of right quad in order to improve ability to limit knee buckling. STG Duration Met Chili Powder Mixer Goal (LTG) Pt to exhibit 3/5 MMT or greater of right quad in order to improve ability to limit knee buckling. LTG Duration 01/23/24 Two Impairment Pt ambulates 174' during Two Minute Walk Test using FWW Short Term Goal (STG) Pt to exhibit ability to complete full 6MWT with no rest breaks using LRAD, ambulating >600' in order to demonstrate improve gait speed and activity tolerance STG Duration Met Chili Powder Mixer Goal (LTG) Pt to complete 6MWT with a gait speed >1.97 ft/sec, as this cutoff is an indication of further functional decline in older adults. LTG Duration 01/23/24 One Impairment Pt does not have an appropriate home exercise program Short Term Goal (STG) Pt to be independent and compliant with an appropriate HEP STG Duration 12/26/23 - improving Assessment Summary Assessment HEP updated for likely discharge next session. Patient able to perform SLR, but quad lag persists. Good return demonstration for all exercises on current HEP. Physical Therapy Plan Frequency and Duration Frequency of Treatment 2x/Week Plan of Care Start Date 10/25/23 Plan of Care End Date 01/23/24 Next Visit Focus/Plan Next Note Type Treatment Note Next Visit Plan POC: Balance Outdoor gait training with SPC ,
--- NOTE | 2024-01-21 11:25 | PT.OTN ---
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, right leg, subsequent encounter (01/21/24) Other specified postprocedural states (01/21/24) Physical Therapy Treatment Note PT-OP-A Visit Information Start: 05/05/23 15:26 Freq: Status: Active Protocol: Document 01/21/24 10:49 DCW (Rec: 01/21/24 11:25 DCW [id number]) Out-Patient Physical Therapy Visit Information Visit Information Visit Type Discharge Summary Visit Start Time 10:49 Visit Stop Time 11:20 Visit Number 69 Number of RESIDENTIAL ROOFER HELPER Visits 0 Evaluation Information Evaluation Date 05/05/23 PT-OP-B Current Condition Start: 05/05/23 15:26 Freq: Status: Active Protocol: Document 05/05/23 13:50 DCW (Rec: 05/05/23 15:48 DCW [id number]) Current Condition History of Current Condition Onset Date 12/31/22 Current Complaints R LE weakness, falls, neuromuscular dysfunction History of Current Condition Pt is a 73 year old female presenting with a complex recent medical history. Pt was brought to ED on 12/31/22 by EMS for nausea, vomiting, and generalized weakness. Was found to have cerebellar bleed and was transferred to [facility]. 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 Pt was at [facility] for 5 1/2 weeks, and then transferred to a rehab facility in [place] for another two months. Pt reports that at [facility], she was up walking around fairly well, but then developed severe nerve pain in her right leg. Found to have a large hematoma in her right low back/hip which ended up compressing right LE nerves. This resulted in loss of motor function and sensory imput from right leg. Pt admits she was miserable waiting for the pain to stop. Due to motor dysfunction in her right leg, was having increased difficulty walking, and spent her time in rehab in a wheelchair. Leg weakness resulted in two fals, both of which yusef her right knee. Pt has recently been working with home health, and is now doing well enough to progress to out-patient PT. Has been walking at home with a FWW, just obtained a 4WW, but not comfortable with it yet. Reports she can get herself to the kitchen, and furniture surf using the countertop and cabinets, and is able to dress and perform pericare independently. Still requires assistance with showering. Has friend helping as caregiver. Treatment Goals Patient/Caregiver Goals Pt's stated goals are to learn how to properly use 4WW, get right LE moving better, and walk on her own. PT-OP-C Subjective Start: 05/05/23 15:26 Freq: Status: Active Protocol: Document 01/21/24 10:49 DCW (Rec: 01/21/24 11:25 DCW [id number]) OP-PT Subjective Patient Comments Patient Comments Pt getting ready for her winter down in [place], will be transferring to a PT down there. PT-OP-E Functional Tests Start: 05/05/23 15:26 Freq: Status: Active Protocol: Document 01/21/24 10:49 DCW (Rec: 01/21/24 11:25 DCW [id number]) Functional Tests 6 Minute Walk Test Distance 693' Device Used None Comments 1.93 ft/sec PT-OP-G Mobility & Gait Start: 05/05/23 15:26 Freq: Status: Active Protocol: Document 10/25/23 11:15 DCW (Rec: 10/25/23 11:36 DCW [id number]) OP Gait Assessment Gait Gait Assistance Required: Standby Assistance Distance (Feet) 628 Assistive Devices Assistive Device Gait Belt,Straight Cane Comments Gait Comments Improving motor control of right quad during gait PT-OP-H Neuro Start: 05/05/23 15:26 Freq: Status: Active Protocol: Document 10/25/23 11:15 DCW (Rec: 10/25/23 11:36 DCW [id number]) Sensation Evaluation Gross Sensation Gross Sensation Right LE Impaired Sensation Description Numbness,Tingling PT-OP-M Strength Start: 05/05/23 15:26 Freq: Status: Active Protocol: Document 10/25/23 11:15 DCW (Rec: 10/25/23 11:36 DCW [id number]) Hip Strength Hip Manual Muscle Testing Right Flexion (L2) 3 Fair Extension (S1) 4+ Good+ Abduction 4- Good- Adduction 4- Good- Left Flexion (L2) 4+ Good+ Extension (S1) 4+ Good+ Abduction 4+ Good+ Adduction 4+ Good+ Knee Strength Knee Manual Muscle Testing Right Flexion (S2) 5 Normal Extension (L3) 2 Poor Left Flexion (S2) 5 Normal Extension (L3) 5 Normal Ankle/Foot Strength Ankle and Foot Manual Muscle Testing Right Dorsiflexion (L4) 4+ Good+ Plantarflexion (S1) 4+ Good+ Left Dorsiflexion (L4) 4+ Good+ Plantarflexion (S1) 4+ Good+ PT-OP-O Vestibular Start: 06/24/23 12:49 Freq: Status: Active Protocol: Document 06/24/23 12:00 DCW (Rec: 06/24/23 12:49 DCW [id number]) Vestibular Assessment Auditory Tests Zurita Test Within normal limits Rinne Test Negative Air Conduction Results Equal Visual Testing Smooth Pursuits Horizontal WNL Smooth Pursuits Vertical WNL Saccades Horizontal WNL Heave Test Positive Bilateral Thrust Head Positive Bilateral Spontaneous Nystagmus Negative Positional Testing Ortega-Hallpike Negative Left,Negative Right Rolling Test Negative Left,Negative Right PT-OP-Q Treatments Start: 05/05/23 15:26 Freq: Status: Active Protocol: Document 01/21/24 10:49 DCW (Rec: 01/21/24 11:25 DCW [id number]) Gym Equipment Shuttle Recovery Bilateral Squats Resistance 100# Shuttle Recovery Platform Stable Unilateral Squats Details R Resistance 37#->50# Shuttle Recovery Platform Stable Therapeutic Exercises Sitting Exercises LAQ Sitting Exercise Name LAQ Side right PT-OP-R Modalities Start: 05/10/23 13:44 Freq: Status: Active Protocol: Document 07/09/23 10:15 AB (Rec: 07/09/23 11:36 AB [id number]) Electric Stimulation Electric Stimulation Israeli Stimulation Body Location right quad Intensity 25 Ramp 0.5 Comments 10 on 30 off, performed quad sets, sidelying knee extension from ~90 deg flexion, LAQ AA as unable on initial trials PT-OP-T Assessment and Plan Start: 05/05/23 15:26 Freq: Status: Active Protocol: Document 01/21/24 10:49 DCW (Rec: 01/21/24 11:25 DCW [id number]) Physical Therapy Assessment Impairments Impairments Balance,Functional Activities, Functional Mobility,Pain,ROM, Sensation,Soft Tissue Mobility ,Strength,Tone,Transfers Goals Three Impairment Pt currently demonstrating 0/5 MMT right quad Short Term Goal (STG) Pt to exhibit 2-/5 MMT or greater of right quad in order to improve ability to limit knee buckling. STG Duration Met Fpc Goal (LTG) Pt to exhibit 3/5 MMT or greater of right quad in order to improve ability to limit knee buckling. LTG Duration 01/23/24 Two Impairment Pt ambulates 174' during Two Minute Walk Test using FWW Short Term Goal (STG) Pt to exhibit ability to complete full 6MWT with no rest breaks using LRAD, ambulating >600' in order to demonstrate improve gait speed and activity tolerance STG Duration Met Computer Systems Analyst Goal (LTG) Pt to complete 6MWT with a gait speed >1.97 ft/sec, as this cutoff is an indication of further functional decline in older adults. LTG Duration 01/23/24 - Improving - 1.93 ft /sec One Impairment Pt does not have an appropriate home exercise program Short Term Goal (STG) Pt to be independent and compliant with an appropriate HEP STG Duration 12/26/23 - improving Assessment Summary Assessment Pt feeling good regarding discharge at this time. Pt leaving state to return to her [place] in [place], and will begin PT upon arrival there. Pt feeling like she has made very good overall improvement. Pt will be discharged from skilled therapy at this time. Physical Therapy Plan Frequency and Duration Frequency of Treatment 2x/Week Plan of Care Start Date 10/25/23 Plan of Care End Date 01/23/24 Therapeutic Interventions Therapeutic Interventions Balance Training,Coordination Training,Gait Training,Home Exercise Program,Joint Mobilizations,Manual Therapy, Neuromuscular Re-education, Patient/Caregiver Education, Self-Care/Home Management, Sensory Integration,Soft Tissue Mobilization, Therapeutic Activities, Therapeutic Exercises Discharge Physical Therapy Discharge Reasons No Longer Attending PT Next Visit Focus/Plan Next Note Type Discharge Summary
== END 2024-02-02 15:08 | disposition home or self-care (01) ==
LOC: PHYS 10:45
PROVIDERS: Family Provider Family Medicine; PCP Family Medicine; Referring Provider Family Medicine; Visit Provider Family Medicine
DX: R29.898 Other symptoms and signs involving the musculoskeletal system (principal); Z98.890 Other specified postprocedural states; M62.81 Muscle weakness (generalized); R29.6 Repeated falls; S74.01XD Injury of sciatic nerve at hip and thigh level, right leg, subsequent encounter
CPT/HCPCS: 97010; 97032; 97110; 97112; 97116; 97140; 97163; 97530; 97535

== ENCOUNTER → 2024-09-13 14:48 | Outpatient (CLI) | payer MEDICARE, OTHER, SELFPAY ==
--- NOTE | 2024-09-13 14:53 | DI.RAD.S_ITS ---
PROCEDURE: XR KNEE RT 3V INDICATIONS: Pain in right knee TECHNIQUE: 3 views of the knee were acquired. COMPARISON: [facility], , XR KNEE RT 3V, 06/11/2023, 11:16. FINDINGS: Bones: No fractures or dislocations. Stable appearing osteophytic projection directed toward the joint space arising from the medial femoral condylar surface. Moderate to severe medial and moderate lateral tibiofemoral and patellofemoral compartment narrowing with associated osteophytosis. Soft tissues: Moderate joint effusion. No suspicious soft tissue calcifications. IMPRESSION: KL grade 3 tricompartmental osteoarthritis without evidence of acute osseous abnormality. Dictated by: Nghia Ward M.D. on 09/13/2024 at 23:00 Approved by: Nghia Ward M.D. on 09/13/2024 at 23:07
== END ==
PROVIDERS: Family Provider Family Medicine; PCP Family Medicine; Referring Provider Family Medicine; Visit Provider Family Medicine
DX: M17.11 Unilateral primary osteoarthritis, right knee (principal); M25.461 Effusion, right knee; M25.561 Pain in right knee
CPT/HCPCS: 73562

== ENCOUNTER → 2024-09-20 13:05 | Outpatient (CLI) | payer MEDICARE, OTHER, SELFPAY ==
--- NOTE | 2024-09-20 13:37 | DI.MRI.S_ITS ---
PROCEDURE: MR KNEE RT WO CON INDICATIONS: recurrent pain of rt knee TECHNIQUE: Noncontrast sagittal PD fast spin echo and T2 fast spin echo with fat saturation, sagittal 3-D FLASH with fat saturation; coronal T1 spin echo and PD fast spin echo with fat saturation, and axial PD fast spin echo with fat saturation through the knee. COMPARISON: None. FINDINGS: Image quality: Excellent. Menisci: In the medial meniscus, there is a small vertical tear of the posterior root (10:21). There is additional mildly complex tear of the medial meniscus body, with undersurface and radial component. Marked extrusion of the medial meniscus body. The lateral meniscus is unremarkable. Cruciate ligaments: The anterior and posterior cruciate ligaments appear intact. Medial structures: Focal full-thickness tear of the proximal MCL (14:20), without ligament retraction. Lateral structures: The lateral collateral ligament, long and short heads of the biceps femoris tendon appear intact. The popliteus tendon appears normal; the popliteofibular ligament appears intact. The posterosuperior and anteroinferior popliteomeniscal fascicles appear intact. The arcuate and fabellofibular ligaments appear intact, on either side of the lateral inferior geniculate artery. Iliotibial band appears normal. Anterior structures: The quadriceps tendon is unremarkable. Mild tendinosis of the patellar tendon. The patellar tendon is mildly redundant. Mild lateral tilt of the patella. The medial and lateral patellofemoral ligaments are intact. Hoffa's fat pad edema. Bones and cartilage: Moderate chondrosis of the patellofemoral compartment, with high-grade chondral loss in the medial patellar facet. In the medial compartment, there is large area above full-thickness chondral loss in the weight-bearing portion of the medial femoral condyle, with mild subchondral marrow edema. Additional mild chondral irregularity of the posterior nonweightbearing portion of the medial femoral condyle, with mild subchondral marrow edema. In the lateral compartment, there is mild chondral irregularity of the weight- bearing portion of the lateral femoral condyle, with small area of high-grade chondral loss in the lateral tibial plateau. No acute fracture. Small enthesophyte at the proximal MCL insertion. Joint space: Large knee effusion with synovitis. Moderate sized, partially ruptured popliteal cyst. Popliteal vasculature is unremarkable. Varicose vein is seen in the lateral knee. 1.0 cm ossified body with reactive marrow edema in the intercondylar notch. IMPRESSION: 1. Tear of the medial meniscus with marked extrusion of the medial meniscus body. 2. Focal full-thickness tear of the proximal MCL without ligament retraction. 3. 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 4. Large knee effusion. Moderate sized, partially ruptured popliteal cyst. 1.0 cm ossified body in the intercondylar notch. Dictated by: Jackie Danielson M.D. on 09/22/2024 at 9:46 Approved by: Jackie Danielson M.D. on 09/22/2024 at 9:56
== END ==
PROVIDERS: Family Provider Family Medicine; PCP Family Medicine; Referring Provider Family Medicine; Visit Provider Family Medicine
DX: S83.231A Complex tear of medial meniscus, current injury, right knee, initial encounter (principal); S83.411A Sprain of medial collateral ligament of right knee, initial encounter; M66.0 Rupture of popliteal cyst; M25.561 Pain in right knee; M22.41 Chondromalacia patellae, right knee; M25.461 Effusion, right knee
CPT/HCPCS: 73721

== ENCOUNTER 2025-01-19 12:15 | Outpatient (RCR) | payer MEDICARE, OTHER, SELFPAY ==
--- NOTE | 2024-09-06 17:31 | PT.OIE ---
Addendum entered and electronically signed by Romain Zuñiga, PT 09/06/24 17:38: PT direct supervision and direction to student PT Cristobal Santana throughout session Original Note: Current Diagnoses Other symptoms and signs involving the musculoskeletal system (09/06/24) Visit Care Team Role Provider Type Cristino Mccann MD Attending Provider Non-Staff Family Provider Primary Care Provider Referring Provider Specialty: Family Practice Address: [address] [place] [address] [id number], [place], [address] Email: Physical Therapy Initial Evaluation PT-OP-A Visit Information Start: 09/06/24 13:00 Freq: Status: Active Protocol: Document 09/06/24 13:45 LFG (Rec: 09/06/24 15:07 LFG [id number]) Out-Patient Physical Therapy Visit Information Visit Information Visit Type Initial Evaluation Visit Start Time 13:45 Visit Stop Time 14:20 Visit Number 1 Number of GRAPHICS SOFTWARE ENGINEER Visits 0 Evaluation Information Evaluation Date 09/06/24 PT-OP-B Current Condition Start: 09/06/24 13:00 Freq: Status: Active Protocol: Document 09/06/24 13:45 LFG (Rec: 09/06/24 15:07 LFG [id number]) Current Condition History of Current Condition History of Current Pt is a 74 year old female returning to physical Condition therapy with complaints of R leg weakness, stiffness and loss of sensation from her inner thigh all the way down to her ankle. 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 DC from PT on 01/21/24. She comes in today with a cane but says she only occasionally actually needs it. While in [place] she was attending physical therapy and also mentions one of the therapists suspects she might have an ACL tear but hasn't had any imaging done. She reports that she is still gardening and doing light/easy hikes with her friend but she has trouble squatting down. She also mentions that she is doing water aerobics/activities such as walking in the water which can challenges her balance. Treatment Goals Patient/Caregiver Goals are to go back to normal person walking the way Goals she did before without a limp. She also states that she would like to go back to hiking as at the moment she has only been able to do small/light hikes Prior Functional Status Baseline Function- Independent ADL's Baseline Function- Independent Mobility PT-OP-C Subjective Start: 09/06/24 13:00 Freq: Status: Active Protocol: Document 09/06/24 13:45 LFG (Rec: 09/06/24 15:07 LFG [id number]) OP-PT Subjective Patient Comments Patient Comments Patient reports of R quad weakness and OP-PT Pain Assessment Pain Assessment Grid Paper Pain No Assessment Grid Completed PT-OP-D Balance Start: 09/06/24 13:00 Freq: Status: Active Protocol: Document 09/06/24 13:45 LFG (Rec: 09/06/24 15:07 LFG [id number]) Balance Tests Single Limb Standing Single Limb- Right 1 sec before losing balance Single Limb- Left able to hold for about 15 sec w/ swaying, wobbling, and frequent UE help PT-OP-E Functional Tests Start: 09/06/24 13:00 Freq: Status: Active Protocol: Document 09/06/24 13:45 LFG (Rec: 09/06/24 15:15 LFG [id number]) Functional Tests 30 Second Sit to Stand Test Score 10x Comments bilateral UE help PT-OP-G Mobility & Gait Start: 09/06/24 15:07 Freq: Status: Active Protocol: Document 09/06/24 13:45 LFG (Rec: 09/06/24 15:15 LFG [id number]) OP Gait Assessment Gait Gait Assistance Independent Required: Able to Maintain Yes Weight Bearing Status During Gait Comments Gait Comments R foot slightly externally rotated in stance phase, L foot excessive pronation during stance phase, compensatory R hip hike to clear leg through swing phase PT-OP-L Special Tests Start: 09/06/24 15:07 Freq: Status: Active Protocol: Document 09/06/24 13:45 LFG (Rec: 09/06/24 15:15 LFG [id number]) Special Tests Hip Special Tests Derrick Test Results negative bilaterally Comments R rectus femoris tighter than L Knee Special Tests Anterior Draw Test Results negative Comments slight give bilaterally, possible laxity PT-OP-M Strength Start: 09/06/24 13:00 Freq: Status: Active Protocol: Document 09/06/24 13:45 LFG (Rec: 09/06/24 15:07 LFG [id number]) Hip Strength Hip Manual Muscle Testing Left Flexion (L2) 4- Good- Abduction 4 Good Adduction 3+ Fair+ External Rotation 4- Good- Internal Rotation 4 Good Right Flexion (L2) 4- Good- Abduction 4 Good Adduction 4 Good External Rotation 4- Good- Internal Rotation 4 Good Knee Strength Knee Manual Muscle Testing Left Flexion (S2) 4+ Good+ Extension (L3) 4+ Good+ Right Flexion (S2) 4+ Good+ Extension (L3) 3+ Fair+ Ankle/Foot Strength Ankle and Foot Manual Muscle Testing Left Dorsiflexion (L4) 4+ Good+ Plantarflexion (S1) 4+ Good+ Right Dorsiflexion (L4) 4+ Good+ Plantarflexion (S1) 4+ Good+ PT-OP-T Assessment and Plan Start: 09/06/24 13:00 Freq: Status: Active Protocol: Document 09/06/24 13:45 LFG (Rec: 09/06/24 15:07 LF [id number]) Physical Therapy Assessment Rehab Potential Rehabilitation Good Potential Evaluation Complexity Number of Personal 3 or More Factors/ Comorbidities Number of Body 4 or More Systems Impaired Clinical Unstable Presentation at Evaluation Impairments Impairments Activity Tolerance,Balance,Functional Activities, Functional Mobility,Gait,Sensation,Strength Goals Three Impairment Pt has previous HEP(s) from both PT in [place] and [place] since last fall Short Term Goal (STG Pt will narrow down their most relevant and appropriate ) exercises into a new and updated HEP STG Duration 10/27/24 Two Impairment Pt demonstrating 10x 30sec sit to stand with constant bilateral UE help Mcfp Goal (LTG) Pt will improve 30 sec sit to stand to 12x w/ no UE help One Impairment Pt currently demonstrating 3+/5 MMT right quad Rules Examiner Goal (LTG) Pt to improve right quad strength to a 4+/5 to improve sit to stand, squat, and gait activity tolerance LTG Duration 11/06/24 Assessment Summary Assessment Pt presents with signs and symptoms consistent with referring diagnosis of R leg weakness. Pt MMT of R knee extensors show significant weakness as well as hip flexion, and adduction/abduction. Limiting Pt ability to stand and ambulate properly due to low control of R knee and advancement of the R LE during swing phase. Pt should benefit from skilled therapy focusing on improving functional strength, balance, and activity tolerance. Physical Therapy Plan Frequency and Duration Frequency of 2x/Week Treatment Plan of Care Start 09/06/24 Date Plan of Care End 11/15/24 Date Therapeutic Interventions Therapeutic Balance Training,Gait Training,Home Exercise Program, Interventions Manual Therapy,Neuromuscular Re-education,Patient/ Caregiver Education,Self-Care/Home Management,Soft Tissue Mobilization,Therapeutic Activities,Therapeutic Exercises Modalities Electric Stimulation Next Visit Focus/Plan Next Note Type Treatment Note Next Visit Plan Quad strengthening, balance, and gait training
--- NOTE | 2024-09-06 17:31 | PT.OPPOC ---
Addendum entered and electronically signed by Romain Zuñiga, PT 09/06/24 17:40: PT direct supervision and direction to student PT Cristobal Santana throughout session Original Note: Physical, Occupational & Speech Therapy At [facility] Current Diagnoses Other symptoms and signs involving the musculoskeletal system (09/06/24) Visit Care Team Role Provider Type Cristino Mccann MD Attending Provider Non-Staff Family Provider Primary Care Provider Referring Provider Specialty: [facility] Address: [address] [place] [address] [id number], [place], [place], [address] Email: Plan Of Care PT-OP-B Current Condition Start: 09/06/24 13:00 Freq: Status: Active Protocol: Document 09/06/24 13:45 LFG (Rec: 09/06/24 15:07 LFG [id number]) Current Condition History of Current Condition History of Current Pt is a 74 year old female returning to physical Condition therapy with complaints of R leg weakness, stiffness and loss of sensation from her inner thigh all the way down to her ankle. 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 DC from PT on 01/21/24. She comes in today with a cane but says she only occasionally actually needs it. While in [place] she was attending physical therapy and also mentions one of the therapists suspects she might have an ACL tear but hasn't had any imaging done. She reports that she is still gardening and doing light/easy hikes with her friend but she has trouble squatting down. She also mentions that she is doing water aerobics/activities such as walking in the water which can challenges her balance. Treatment Goals Patient/Caregiver Goals are to go back to normal person walking the way Goals she did before without a limp. She also states that she would like to go back to hiking as at the moment she has only been able to do small/light hikes Prior Functional Status Baseline Function- Independent ADL's Baseline Function- Independent Mobility PT-OP-T Assessment and Plan Start: 09/06/24 13:00 Freq: Status: Active Protocol: Document 09/06/24 13:45 LFG (Rec: 09/06/24 15:07 LFG [id number]) Physical Therapy Assessment Rehab Potential Rehabilitation Good Potential Evaluation Complexity Number of Personal 3 or More Factors/ Comorbidities Number of Body 4 or More Systems Impaired Clinical Unstable Presentation at Evaluation Impairments Impairments Activity Tolerance,Balance,Functional Activities, Functional Mobility,Gait,Sensation,Strength Goals Three Impairment Pt has previous HEP(s) from both PT in [place] and [place] since last fall Short Term Goal (STG Pt will narrow down their most relevant and appropriate ) exercises into a new and updated HEP STG Duration 10/27/24 Two Impairment Pt demonstrating 10x 30sec sit to stand with constant bilateral UE help Licensed Practical Nurse Clinic Nurse Goal (LTG) Pt will improve 30 sec sit to stand to 12x w/ no UE help One Impairment Pt currently demonstrating 3+/5 MMT right quad Custodial Goal (LTG) Pt to improve right quad strength to a 4+/5 to improve sit to stand, squat, and gait activity tolerance LTG Duration 11/06/24 Assessment Summary Assessment Pt presents with signs and symptoms consistent with referring diagnosis of R leg weakness. Pt MMT of R knee extensors show significant weakness as well as hip flexion, and adduction/abduction. Limiting Pt ability to stand and ambulate properly due to low control of R knee and advancement of the R LE during swing phase. Pt should benefit from skilled therapy focusing on improving functional strength, balance, and activity tolerance. Physical Therapy Plan Frequency and Duration Frequency of 2x/Week Treatment Plan of Care Start 09/06/24 Plan of Care End 11/15/24 Therapeutic Interventions Therapeutic Balance Training,Gait Training,Home Exercise Program, Interventions Manual Therapy,Neuromuscular Re-education,Patient/ Caregiver Education,Self-Care/Home Management,Soft Tissue Mobilization,Therapeutic Activities,Therapeutic Exercises Modalities Electric Stimulation Next Visit Focus/Plan Next Note Type Treatment Note Next Visit Plan Quad strengthening, balance, and gait training Plan of Care Dates Plan of Care Start Date 09/06/24 Plan of Care End Date 11/15/24 Electronically Signed by: Cristobal Smith, PT 09/06/24 2317 If you are in agreement with this Plan of Care, please return a signed and dated copy. I have reviewed this Plan of Care and certify that the skilled therapy services above are required to meet the patient?s needs. Physician Signature Date Printed Name and Credentials Clinical Instructor Signature Printed Name and Credentials
--- NOTE | 2024-09-08 14:29 | PT.OTN ---
Current Diagnoses Other symptoms and signs involving the musculoskeletal system (09/08/24) Physical Therapy Treatment Note PT-OP-A Visit Information Start: 09/06/24 13:00 Freq: Status: Active Protocol: Document 09/08/24 13:49 SP (Rec: 09/08/24 15:26 SP [id number]) Out-Patient Physical Therapy Visit Information Visit Information Visit Type Treatment Note Visit Start Time 13:49 Visit Stop Time 14:29 Visit Number 2 Number of HOMICIDE SQUAD SERGEANT Visits 1 Evaluation Information Evaluation Date 09/06/24 PT-OP-B Current Condition Start: 09/06/24 13:00 Freq: Status: Active Protocol: Document 09/06/24 13:45 LFG (Rec: 09/06/24 15:07 LFG [id number]) Current Condition History of Current Condition History of Current Pt is a 74 year old female returning to physical Condition therapy with complaints of R leg weakness, stiffness and loss of sensation from her inner thigh all the way down to her ankle. 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 DC from PT on 01/21/24. She comes in today with a cane but says she only occasionally actually needs it. While in [place] she was attending physical therapy and also mentions one of the therapists suspects she might have an ACL tear but hasn't had any imaging done. She reports that she is still gardening and doing light/easy hikes with her friend but she has trouble squatting down. She also mentions that she is doing water aerobics/activities such as walking in the water which can challenges her balance. Treatment Goals Patient/Caregiver Goals are to go back to normal person walking the way Goals she did before without a limp. She also states that she would like to go back to hiking as at the moment she has only been able to do small/light hikes Prior Functional Status Baseline Function- Independent ADL's Baseline Function- Independent Mobility PT-OP-C Subjective Start: 09/06/24 13:00 Freq: Status: Active Protocol: Document 09/08/24 13:49 SP (Rec: 09/08/24 15:26 SP [id number]) OP-PT Subjective Patient Comments Patient Comments [place] the [place] and now [place] for the [place] and going to [place] and water walking with flow water, not strong enough to walk against resistance and jack good height for her to walk . She stated went to her MT in [facility] and focused little more on psoas and QL with soreness but improved longer stride. PT-OP-D Balance Start: 09/06/24 13:00 Freq: Status: Active Protocol: Document 09/06/24 13:45 LFG (Rec: 09/06/24 15:07 LFG [id number]) Balance Tests Single Limb Standing Single Limb- Right 1 sec before losing balance Single Limb- Left able to hold for about 15 sec w/ swaying, wobbling, and frequent UE help PT-OP-E Functional Tests Start: 09/06/24 13:00 Freq: Status: Active Protocol: Document 09/06/24 13:45 LFG (Rec: 09/06/24 15:15 LFG [id number]) Functional Tests 30 Second Sit to Stand Test Score 10x Comments bilateral UE help PT-OP-G Mobility & Gait Start: 09/06/24 15:07 Freq: Status: Active Protocol: Document 09/06/24 13:45 LFG (Rec: 09/06/24 15:15 LFG [id number]) OP Gait Assessment Gait Gait Assistance Independent Required: Able to Maintain Yes Weight Bearing Status During Gait Comments Gait Comments R foot slightly externally rotated in stance phase, L foot excessive pronation during stance phase, compensatory R hip hike to clear leg through swing phase PT-OP-L Special Tests Start: 09/06/24 15:07 Freq: Status: Active Protocol: Document 09/06/24 13:45 LFG (Rec: 09/06/24 15:15 LFG [id number]) Special Tests Hip Special Tests Derrick Test Results negative bilaterally Comments R rectus femoris tighter than L Knee Special Tests Anterior Draw Test Results negative Comments slight give bilaterally, possible laxity PT-OP-M Strength Start: 09/06/24 13:00 Freq: Status: Active Protocol: Document 09/06/24 13:45 LFG (Rec: 09/06/24 15:07 LFG [id number]) Hip Strength Hip Manual Muscle Testing Left Flexion (L2) 4- Good- Abduction 4 Good Adduction 3+ Fair+ External Rotation 4- Good- Internal Rotation 4 Good Right Flexion (L2) 4- Good- Abduction 4 Good Adduction 4 Good External Rotation 4- Good- Internal Rotation 4 Good Knee Strength Knee Manual Muscle Testing Left Flexion (S2) 4+ Good+ Extension (L3) 4+ Good+ Right Flexion (S2) 4+ Good+ Extension (L3) 3+ Fair+ Ankle/Foot Strength Ankle and Foot Manual Muscle Testing Left Dorsiflexion (L4) 4+ Good+ Plantarflexion (S1) 4+ Good+ Right Dorsiflexion (L4) 4+ Good+ Plantarflexion (S1) 4+ Good+ PT-OP-Q Treatments Start: 09/06/24 13:00 Freq: Status: Active Protocol: Document 09/08/24 13:49 SP (Rec: 09/08/24 15:26 SP [id number]) Cardio Equipment Recumbent Bicycle Duration (Minutes) 6 Resistance 4 Seat Position 4 Other 48-51 RPMs, 0.3 miles Gym Equipment Shuttle Recovery Bilateral Squats Resistance 87# 3 navy bands (increase 100 # next tx- past resistance) Shuttle Recovery Stable Platform Reps/Time 20 reps Unilateral Squats Details R- cued push with forefoot /less heel impoved more medial quad vs glut disc Resistance 50# (2 navy bands) Shuttle Recovery Stable Platform Reps/Time 15 R, 20 L Therapeutic Exercises Sitting Exercises LAQ Sitting Exercise added to HEP with HO Name Side bilateral Resistance TB #2 teal- therapist hand to target to get full TKE Quad engagement Reps/Minutes 2x10 reps Comments cued full TKE, quad engagement Standing Exercises Resisted stepping Standing Exercise lateral (squatted position)- added to HEp with HO Name Side bilateral Resistance Tb #1 loop around feet vs ankles (feet makes her [employer] feet more) Reps/Minutes 10 ft x3 laps Comments cued maintain R knee bent, toe clearance- tends to perform TKE into RLE WB Other Exercises Quad stretch Other Exercise Name 1. standing foot on chair behind 2. Stand foot on chair front (in PT) Side right Resistance 3. Showed quadruped on floor sit back- will try next tx Reps/Minutes 20 SH each Comments 1. cued sit back wall front contact or chair arms support 2. contact chair Gait Training Gait Activity Dynamic gait Description Forward, Backward walking Comments 1. Metronome: Fwd 93-101, bwd 83-86 bpm cued arm swing, heel toe softer heel advancement and bigger stride backward toe heel. 2. Fwd walking head turns Slows pacing and more stiff lateral shift walking, cued increased RAQUEL, maintain arsen and midline trunk- tends to vier toward head turn and semitandem foot interference. no LOB PT-OP-T Assessment and Plan Start: 09/06/24 13:00 Freq: Status: Active Protocol: Document 09/08/24 13:49 SP (Rec: 09/08/24 15:26 SP [id number]) Physical Therapy Assessment Goals Three Impairment Pt has previous HEP(s) from both PT in [place] since last fall Short Term Goal (STG Pt will narrow down their most relevant and appropriate ) exercises into a new and updated HEP STG Duration 10/27/24 Two Impairment Pt demonstrating 10x 30sec sit to stand with constant bilateral UE help Half-Way Goal (LTG) Pt will improve 30 sec sit to stand to 12x w/ no UE help One Impairment Pt currently demonstrating 3+/5 MMT right quad Brain Surgeon Goal (LTG) Pt to improve right quad strength to a 4+/5 to improve sit to stand, squat, and gait activity tolerance LTG Duration 11/06/24 Assessment Summary Assessment Pt improved quad and adductor engagement tiring reports with cues for forefoot pressure during SL shuttle recovery, less over R glut engagement that reports tends to get sore, gets used to much. Initiated resisted sided stepping with cues for squatted positioning with WB into forefoot>heel to encourage R knee flexion, quad and abd/eccentric adductor functional strengthening. Good response to metronome use during fwd/bwd gait for balance and functional R knee mobility toward return to normalizing gait phases, noted improved arsen and decreased TKE with hip hike on R. Physical Therapy Plan Frequency and Duration Frequency of 2x/Week Treatment Plan of Care Start 09/06/24 Date Plan of Care End 11/15/24 Date Therapeutic Interventions Therapeutic Balance Training,Gait Training,Home Exercise Program, Interventions Manual Therapy,Neuromuscular Re-education,Patient/ Caregiver Education,Self-Care/Home Management,Soft Tissue Mobilization,Therapeutic Activities,Therapeutic Exercises Modalities Electric Stimulation Next Visit Focus/Plan Next Note Type Treatment Note Next Visit Plan Recheck HEP, continue use metronome for improve R knee mechanics walking. Future: floor transfer for 3 option R knee flexion quad & stretch (to decrease c/o stiffness) vs stand chair support and encourage fall prevention and return to funtional tasks cleaning floors, ideas functional AROM/ strengthening activities: stool knee flex/ext walking, standing resisted walk fwd/bwd (sport cord). POC: Quad strengthening, balance, and gait training
--- NOTE | 2024-09-13 15:19 | PT.OTN ---
Addendum entered and electronically signed by Romain Zuñiga, PT 09/13/24 15:22: PT direct supervision and direction to student PT Cristobal Santana throughout session Original Note: Current Diagnoses Other symptoms and signs involving the musculoskeletal system (09/13/24) Physical Therapy Treatment Note PT-OP-A Visit Information Start: 09/06/24 13:00 Freq: Status: Active Protocol: Document 09/13/24 13:45 LFG (Rec: 09/13/24 13:56 LFG [id number]) Out-Patient Physical Therapy Visit Information Visit Information Visit Type Treatment Note Visit Start Time 13:44 Visit Stop Time 14:28 Visit Number 3 Number of LANDSCAPE ACCOUNT MANAGER Visits 0 Evaluation Information Evaluation Date 09/06/24 PT-OP-B Current Condition Start: 09/06/24 13:00 Freq: Status: Active Protocol: Document 09/06/24 13:45 LFG (Rec: 09/06/24 15:07 LFG [id number]) Current Condition History of Current Condition History of Current Pt is a 74 year old female returning to physical Condition therapy with complaints of R leg weakness, stiffness and loss of sensation from her inner thigh all the way down to her ankle. 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 DC from PT on 01/21/24. She comes in today with a cane but says she only occasionally actually needs it. While in [place] she was attending physical therapy and also mentions one of the therapists suspects she might have an ACL tear but hasn't had any imaging done. She reports that she is still gardening and doing light/easy hikes with her friend but she has trouble squatting down. She also mentions that she is doing water aerobics/activities such as walking in the water which can challenges her balance. Treatment Goals Patient/Caregiver Goals are to go back to normal person walking the way Goals she did before without a limp. She also states that she would like to go back to hiking as at the moment she has only been able to do small/light hikes Prior Functional Status Baseline Function- Independent ADL's Baseline Function- Independent Mobility PT-OP-C Subjective Start: 09/06/24 13:00 Freq: Status: Active Protocol: Document 09/13/24 13:45 LFG (Rec: 09/13/24 13:56 LFG [id number]) OP-PT Subjective Patient Comments Patient Comments Pt reports R knee has especially been feeling stiff lately. PCP visit, said the didn't look good and recommend pt go visit Ortho clinic for imaging. Pt reports knee felt better and looser after last visit with [facility] after doing sideways banded walking, but that it only lasted briefly and swelled up again later that day. PT-OP-D Balance Start: 09/06/24 13:00 Freq: Status: Active Protocol: Document 09/06/24 13:45 LFG (Rec: 09/06/24 15:07 LFG [id number]) Balance Tests Single Limb Standing Single Limb- Right 1 sec before losing balance Single Limb- Left able to hold for about 15 sec w/ swaying, wobbling, and frequent UE help PT-OP-E Functional Tests Start: 09/06/24 13:00 Freq: Status: Active Protocol: Document 09/06/24 13:45 LFG (Rec: 09/06/24 15:15 LFG [id number]) Functional Tests 30 Second Sit to Stand Test Score 10x Comments bilateral UE help PT-OP-G Mobility & Gait Start: 09/06/24 15:07 Freq: Status: Active Protocol: Document 09/06/24 13:45 LFG (Rec: 09/06/24 15:15 LFG [id number]) OP Gait Assessment Gait Gait Assistance Independent Required: Able to Maintain Yes Weight Bearing Status During Gait Comments Gait Comments R foot slightly externally rotated in stance phase, L foot excessive pronation during stance phase, compensatory R hip hike to clear leg through swing phase PT-OP-L Special Tests Start: 09/06/24 15:07 Freq: Status: Active Protocol: Document 09/06/24 13:45 LFG (Rec: 09/06/24 15:15 LFG [id number]) Special Tests Hip Special Tests Derrick Test Results negative bilaterally Comments R rectus femoris tighter than L Knee Special Tests Anterior Draw Test Results negative Comments slight give bilaterally, possible laxity PT-OP-M Strength Start: 09/06/24 13:00 Freq: Status: Active Protocol: Document 09/06/24 13:45 LFG (Rec: 09/06/24 15:07 LFG [id number]) Hip Strength Hip Manual Muscle Testing Left Flexion (L2) 4- Good- Abduction 4 Good Adduction 3+ Fair+ External Rotation 4- Good- Internal Rotation 4 Good Right Flexion (L2) 4- Good- Abduction 4 Good Adduction 4 Good External Rotation 4- Good- Internal Rotation 4 Good Knee Strength Knee Manual Muscle Testing Left Flexion (S2) 4+ Good+ Extension (L3) 4+ Good+ Right Flexion (S2) 4+ Good+ Extension (L3) 3+ Fair+ Ankle/Foot Strength Ankle and Foot Manual Muscle Testing Left Dorsiflexion (L4) 4+ Good+ Plantarflexion (S1) 4+ Good+ Right Dorsiflexion (L4) 4+ Good+ Plantarflexion (S1) 4+ Good+ PT-OP-Q Treatments Start: 09/06/24 13:00 Freq: Status: Active Protocol: Document 09/13/24 13:45 LFG (Rec: 09/13/24 13:56 LFG [id number]) Cardio Equipment Recumbent Bicycle Duration (Minutes) 6 Resistance 4 Seat Position 4 Other 0.34 miles Therapeutic Exercises Sidelying Exercises Reverse suspended clamshells Sidelying Exercise reverse suspended clamshells - attempted Name Side right Reps/Minutes 10x Comments struggled with coordination Hip abduction Sidelying Exercise hip abudctions Name Side right Reps/Minutes 15x Comments cues for increaesing ROM, keeping pelvis stationary, not flexing hip Reverse clamshell Sidelying Exercise reverse clamshells Name Side right Reps/Minutes 15x Comments cues for maintaining knees together Clamshells Sidelying Exercise clamshells Name Side right Reps/Minutes 15x Comments cues for not rolling pelvis back and forth, maintaing heels together Standing Exercises SL Hip ab/ex Standing Exercise Single leg hip abductions/extensions Name Side bilateral Resistance L1 Equipment Used Rail used for support Comments cues for slowing eccentric, pause at end range Marches Standing Exercise Marches (hip flexor) Name Side bilateral Resistance L1 around feet Equipment Used rail used for support Reps/Minutes 15x Resisted stepping Standing Exercise sideways, fwd/bwd Name Side bilateral Resistance L1 Equipment Used SBA/CGA for bwd Reps/Minutes 2 laps side, 1 lap fwd/bwd (bwd was a little scary) Comments cues for not dragging foot, keeping constant tension ( feet ) PT-OP-T Assessment and Plan Start: 09/06/24 13:00 Freq: Status: Active Protocol: Document 09/13/24 13:45 LFG (Rec: 09/13/24 15:01 LFG [id number]) Physical Therapy Assessment Rehab Potential Rehabilitation Good Potential Evaluation Complexity Number of Personal 3 or More Factors/ Comorbidities Number of Body 4 or More Systems Impaired Clinical Unstable Presentation at Evaluation Impairments Impairments Activity Tolerance,Balance,Functional Activities, Functional Mobility,Gait,Sensation,Strength Goals Three Impairment Pt has previous HEP(s) from both PT in [place] and [place] since last fall Short Term Goal (STG Pt will narrow down their most relevant and appropriate ) exercises into a new and updated HEP STG Duration 10/27/24 Two Impairment Pt demonstrating 10x 30sec sit to stand with constant bilateral UE help Refueling Ramp Supervisor Goal (LTG) Pt will improve 30 sec sit to stand to 12x w/ no UE help One Impairment Pt currently demonstrating 3+/5 MMT right quad Retirement Goal (LTG) Pt to improve right quad strength to a 4+/5 to improve sit to stand, squat, and gait activity tolerance LTG Duration 11/06/24 Assessment Summary Assessment Pt was noticeably more stiff in the R knee tolerating todays session well and feeling tired and sweaty at the end of it, but no reported change in her R knee stiffness symptoms. Pt reported feeling glute medius working during sidelying exercises with cueing. Patient may benefit from a continued focus on functional strength, activity tolerance and balance training. Physical Therapy Plan Frequency and Duration Frequency of 2x/Week Treatment Plan of Care Start 09/06/24 Date Plan of Care End 11/15/24 Date Therapeutic Interventions Therapeutic Balance Training,Gait Training,Home Exercise Program, Interventions Manual Therapy,Neuromuscular Re-education,Patient/ Caregiver Education,Self-Care/Home Management,Soft Tissue Mobilization,Therapeutic Activities,Therapeutic Exercises Modalities Electric Stimulation Next Visit Focus/Plan Next Note Type Treatment Note Next Visit Plan Recheck HEP, continue use metronome for improve R knee mechanics walking. Future: floor transfer for 3 option R knee flexion quad & stretch (to decrease c/o stiffness) vs stand chair support and encourage fall prevention and return to funtional tasks cleaning floors, ideas functional AROM/ strengthening activities: stool knee flex/ext walking, standing resisted walk fwd/bwd (sport cord). POC: Quad strengthening, balance, and gait training
--- NOTE | 2024-09-15 17:41 | PT.OTN ---
Current Diagnoses Other symptoms and signs involving the musculoskeletal system (09/15/24) Physical Therapy Treatment Note PT-OP-A Visit Information Start: 09/06/24 13:00 Freq: Status: Active Protocol: Document 09/15/24 13:47 AB (Rec: 09/15/24 14:34 AB Laptop) Out-Patient Physical Therapy Visit Information Visit Information Visit Type Treatment Note Visit Note Access Code: [email or web address] Visit Start Time 13:49 Visit Stop Time 14:32 Visit Number 4 Number of FOOD PRODUCTS TESTER Visits 1 PT-OP-B Current Condition Start: 09/06/24 13:00 Freq: Status: Active Protocol: Document 09/06/24 13:45 LFG (Rec: 09/06/24 15:07 LFG [id number]) Current Condition History of Current Condition History of Current Pt is a 74 year old female returning to physical Condition therapy with complaints of R leg weakness, stiffness and loss of sensation from her inner thigh all the way down to her ankle. 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 DC from PT on 01/21/24. She comes in today with a cane but says she only occasionally actually needs it. While in [place] she was attending physical therapy and also mentions one of the therapists suspects she might have an ACL tear but hasn't had any imaging done. She reports that she is still gardening and doing light/easy hikes with her friend but she has trouble squatting down. She also mentions that she is doing water aerobics/activities such as walking in the water which can challenges her balance. Treatment Goals Patient/Caregiver Goals are to go back to normal person walking the way Goals she did before without a limp. She also states that she would like to go back to hiking as at the moment she has only been able to do small/light hikes Prior Functional Status Baseline Function- Independent ADL's Baseline Function- Independent Mobility PT-OP-C Subjective Start: 09/06/24 13:00 Freq: Status: Active Protocol: Document 09/15/24 13:47 AB (Rec: 09/15/24 14:34 AB Laptop) OP-PT Subjective Patient Comments Patient Comments Patient reports she started with a new PCP here at [facility], comments she is done with [place]. Patient reports she is going to get X ray and MRI prior to going to Ortho. Patient has to get info for heart valve to get an MRI. AROM R knee 0 to 122 deg start of session. PT-OP-D Balance Start: 09/06/24 13:00 Freq: Status: Active Protocol: Document 09/06/24 13:45 LFG (Rec: 09/06/24 15:07 LFG [id number]) Balance Tests Single Limb Standing Single Limb- Right 1 sec before losing balance Single Limb- Left able to hold for about 15 sec w/ swaying, wobbling, and frequent UE help PT-OP-E Functional Tests Start: 09/06/24 13:00 Freq: Status: Active Protocol: Document 09/06/24 13:45 LFG (Rec: 09/06/24 15:15 LFG [id number]) Functional Tests 30 Second Sit to Stand Test Score 10x Comments bilateral UE help PT-OP-G Mobility & Gait Start: 09/06/24 15:07 Freq: Status: Active Protocol: Document 09/06/24 13:45 LFG (Rec: 09/06/24 15:15 LFG [id number]) OP Gait Assessment Gait Gait Assistance Independent Required: Able to Maintain Yes Weight Bearing Status During Gait Comments Gait Comments R foot slightly externally rotated in stance phase, L foot excessive pronation during stance phase, compensatory R hip hike to clear leg through swing phase PT-OP-L Special Tests Start: 09/06/24 15:07 Freq: Status: Active Protocol: Document 09/06/24 13:45 LFG (Rec: 09/06/24 15:15 LFG [id number]) Special Tests Hip Special Tests Derrick Test Results negative bilaterally Comments R rectus femoris tighter than L Knee Special Tests Anterior Draw Test Results negative Comments slight give bilaterally, possible laxity PT-OP-M Strength Start: 09/06/24 13:00 Freq: Status: Active Protocol: Document 09/06/24 13:45 LFG (Rec: 09/06/24 15:07 LFG [id number]) Hip Strength Hip Manual Muscle Testing Left Flexion (L2) 4- Good- Abduction 4 Good Adduction 3+ Fair+ External Rotation 4- Good- Internal Rotation 4 Good Right Flexion (L2) 4- Good- Abduction 4 Good Adduction 4 Good External Rotation 4- Good- Internal Rotation 4 Good Knee Strength Knee Manual Muscle Testing Left Flexion (S2) 4+ Good+ Extension (L3) 4+ Good+ Right Flexion (S2) 4+ Good+ Extension (L3) 3+ Fair+ Ankle/Foot Strength Ankle and Foot Manual Muscle Testing Left Dorsiflexion (L4) 4+ Good+ Plantarflexion (S1) 4+ Good+ Right Dorsiflexion (L4) 4+ Good+ Plantarflexion (S1) 4+ Good+ PT-OP-Q Treatments Start: 09/06/24 13:00 Freq: Status: Active Protocol: Document 09/15/24 13:47 AB (Rec: 09/15/24 14:34 AB Laptop) Gym Equipment Cable Column (Body Solid) hip abd Resistance 40lb Reps/Time X15 post trial of 30 lb and 50 lb ( 1-3 reps) Therapeutic Exercises Supine Exercises AROM knee flexion Supine Exercise Name heel slide Side right Reps/Minutes X 10 Comments verbal cues gravity assisted knee flexion Side right Reps/Minutes 2 min Comments assist for set up Sidelying Exercises Hip abduction Sidelying Exercise hip abductions HEP Name Side right Reps/Minutes 15x Comments cues for LE position, trunk position, and to dec velocity Reverse clamshell Sidelying Exercise reverse clamshells HEP Name Side right Reps/Minutes 15x Comments cues for maintaining knees together Clamshells Sidelying Exercise HEP Name Side right Reps/Minutes X 15 Comments VC for trunk position Sitting Exercises Seated hip abd with band Sitting Exercise HEP Name Side bilateral Resistance level 3 band Reps/Minutes one min X 1 Comments verbal cues Manual Therapy Treatment Consent Patient gave verbal Yes consent for manual treatment Soft Tissue Mobilization R knee Mobilization Type Manual Lymphatic Drainage,Other Intensity/Depth Moderate Body Position Hooklying Comments and superficial PT-OP-T Assessment and Plan Start: 09/06/24 13:00 Freq: Status: Active Protocol: Document 09/15/24 13:47 AB (Rec: 09/15/24 14:34 AB Laptop) Physical Therapy Assessment Goals Three Impairment Pt has previous HEP(s) from both PT in [place] and [place] since last fall Short Term Goal (STG Pt will narrow down their most relevant and appropriate ) exercises into a new and updated HEP STG Duration 10/27/24 Two Impairment Pt demonstrating 10x 30sec sit to stand with constant bilateral UE help Manager [employer] Goal (LTG) Pt will improve 30 sec sit to stand to 12x w/ no UE help One Impairment Pt currently demonstrating 3+/5 MMT right quad Manager [employer] Goal (LTG) Pt to improve right quad strength to a 4+/5 to improve sit to stand, squat, and gait activity tolerance LTG Duration 11/06/24 Assessment Summary Assessment 129 deg AROM R knee flexion post manual and hooklyineg ex. SLS inc from 1 to 15+ sec post glute med activation . Lanette reports the knee feels better end of session. Physical Therapy Plan Frequency and Duration Frequency of 2x/Week Treatment Plan of Care Start 09/06/24 Date Plan of Care End 11/15/24 Date Next Visit Focus/Plan Next Note Type Treatment Note Next Visit Plan Recheck HEP, continue use metronome for improve R knee mechanics walking. Future: floor transfer for 3 option R knee flexion quad & stretch (to decrease c/o stiffness) vs stand chair ( with band ) support and encourage fall prevention and return to funtional tasks cleaning floors, ideas functional AROM/strengthening activities: stool knee flex/ext walking, standing resisted walk fwd/bwd (sport cord). ( Possibly heel raise with focus on ecc for controlling fwd momentum for patient during gait) POC: Quad strengthening, balance, and gait training
--- NOTE | 2024-09-21 11:55 | PT-OP ANOTE ---
Pt did not show to her 09/21/24 appointment. Therapist phoned and left a voicemail reminding her of next upcoming visit.
--- NOTE | 2024-09-26 15:16 | PT.OTN ---
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 Tear of the medial meniscus with marked extrusion of the medial meniscus body. 2. Focal full-thickness tear of the proximal MCL without ligament retraction. 3. 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 4. Large knee effusion. Moderate sized, partially ruptured popliteal cyst. 1.0 cm ossified body in the intercondylar notch. PT-OP-B Current Condition Start: 09/06/24 13:00 Freq: Status: Active Protocol: Document 09/06/24 13:45 LFG (Rec: 09/06/24 15:07 LFG [id number]) Current Condition History of Current Condition History of Current Pt is a 74 year old female returning to physical Condition therapy with complaints of R leg weakness, stiffness and loss of sensation from her inner thigh all the way down to her ankle. 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 DC from PT on 01/21/24. She comes in today with a cane but says she only occasionally actually needs it. While in [place] she was attending physical therapy and also mentions one of the therapists suspects she might have an ACL tear but hasn't had any imaging done. She reports that she is still gardening and doing light/easy hikes with her friend but she has trouble squatting down. She also mentions that she is doing water aerobics/activities such as walking in the water which can challenges her balance. Treatment Goals Patient/Caregiver Goals are to go back to normal person walking the way Goals she did before without a limp. She also states that she would like to go back to hiking as at the moment she has only been able to do small/light hikes Prior Functional Status Baseline Function- Independent ADL's Baseline Function- Independent Mobility PT-OP-C Subjective Start: 09/06/24 13:00 Freq: Status: Active Protocol: Document 09/26/24 14:36 SP (Rec: 09/26/24 15:34 SP [id number]) OP-PT Subjective Patient Comments Patient Comments Pt reports had a R knee MRI 09/13/24, and many findings that can contribute to her R knee stiffness, has orthopedic appt with Dr Fernando coming up. PT-OP-D Balance Start: 09/06/24 13:00 Freq: Status: Active Protocol: Document 09/06/24 13:45 LFG (Rec: 09/06/24 15:07 LFG [id number]) Balance Tests Single Limb Standing Single Limb- Right 1 sec before losing balance Single Limb- Left able to hold for about 15 sec w/ swaying, wobbling, and frequent UE help PT-OP-E Functional Tests Start: 09/06/24 13:00 Freq: Status: Active Protocol: Document 09/06/24 13:45 LFG (Rec: 09/06/24 15:15 LFG [id number]) Functional Tests 30 Second Sit to Stand Test Score 10x Comments bilateral UE help PT-OP-G Mobility & Gait Start: 09/06/24 15:07 Freq: Status: Active Protocol: Document 09/06/24 13:45 LFG (Rec: 09/06/24 15:15 LFG [id number]) OP Gait Assessment Gait Gait Assistance Independent Required: Able to Maintain Yes Weight Bearing Status During Gait Comments Gait Comments R foot slightly externally rotated in stance phase, L foot excessive pronation during stance phase, compensatory R hip hike to clear leg through swing phase PT-OP-L Special Tests Start: 09/06/24 15:07 Freq: Status: Active Protocol: Document 09/06/24 13:45 LFG (Rec: 09/06/24 15:15 LFG [id number]) Special Tests Hip Special Tests Derrick Test Results negative bilaterally Comments R rectus femoris tighter than L Knee Special Tests Anterior Draw Test Results negative Comments slight give bilaterally, possible laxity PT-OP-M Strength Start: 09/06/24 13:00 Freq: Status: Active Protocol: Document 09/06/24 13:45 LFG (Rec: 09/06/24 15:07 LFG [id number]) Hip Strength Hip Manual Muscle Testing Left Flexion (L2) 4- Good- Abduction 4 Good Adduction 3+ Fair+ External Rotation 4- Good- Internal Rotation 4 Good Right Flexion (L2) 4- Good- Abduction 4 Good Adduction 4 Good External Rotation 4- Good- Internal Rotation 4 Good Knee Strength Knee Manual Muscle Testing Left Flexion (S2) 4+ Good+ Extension (L3) 4+ Good+ Right Flexion (S2) 4+ Good+ Extension (L3) 3+ Fair+ Ankle/Foot Strength Ankle and Foot Manual Muscle Testing Left Dorsiflexion (L4) 4+ Good+ Plantarflexion (S1) 4+ Good+ Right Dorsiflexion (L4) 4+ Good+ Plantarflexion (S1) 4+ Good+ PT-OP-Q Treatments Start: 09/06/24 13:00 Freq: Status: Active Protocol: Document 09/26/24 14:36 SP (Rec: 09/26/24 15:34 SP [id number]) Cardio Equipment Recumbent Bicycle Duration (Minutes) 8 Resistance 5 Seat Position 2 Other 58 RPMs, 0.34 miles Gym Equipment Shuttle Recovery Bilateral Squats Resistance 87# 3 navy bands (increase 100 # next tx- past resistance) Shuttle Recovery Stable Platform Reps/Time 20 reps Unilateral Squats Details Good quad fac reported on R Resistance 50# (2 navy bands) R, 62 (2 navy) L Shuttle Recovery Stable Platform Reps/Time 20 reps each LE Therapeutic Exercises Supine Exercises AROM knee flexion Supine Exercise Name TA heel slide Side right Reps/Minutes X 10 Comments verbal cues PPT with TA draw in [place] Exercises quad stretch Side bilateral Resistance AAROM R knee Equipment Used use strap Reps/Minutes 60 sec x2 Comments cued slow pacing flexion, reports good quad stretch Sidelying Exercises Hip abduction Sidelying Exercise hip abductions HEP Name Side bilateral Resistance TB #1 at thighs Reps/Minutes 15x Comments occ cue Reverse clamshell Sidelying Exercise reverse clamshells HEP Name Side right Resistance AROM Reps/Minutes 15x Comments cues for maintaining knees together Clamshells Sidelying Exercise HEP Name Side right Resistance TB #1 at thighs Reps/Minutes X 15 Comments occ cues for slower pacing Therapeutic Activity Therapeutic Activity on /off floor Reps/Minutes 1 Comments needs UE on chair, for ability to perform HEP on more firm surface home. PT-OP-T Assessment and Plan Start: 09/06/24 13:00 Freq: Status: Active Protocol: Document 09/26/24 14:36 SP (Rec: 09/26/24 15:34 SP [id number]) Physical Therapy Assessment Goals Three Impairment Pt has previous HEP(s) from both PT in [place] and [place] since last fall Short Term Goal (STG Pt will narrow down their most relevant and appropriate ) exercises into a new and updated HEP STG Duration 10/27/24 Two Impairment Pt demonstrating 10x 30sec sit to stand with constant bilateral UE help Fpc Goal (LTG) Pt will improve 30 sec sit to stand to 12x w/ no UE help 09/26/24: 11 reps in 30 sec, light contact chair for bal support. LTG Duration updated 09/26/24 One Impairment Pt currently demonstrating 3+/5 MMT right quad Fpc Goal (LTG) Pt to improve right quad strength to a 4+/5 to improve sit to stand, squat, and gait activity tolerance LTG Duration 11/06/24 Assessment Summary Assessment Pt responded well to quad stretch in prone (not measured) to improve R knee ROM with ability to get on/ off floor use of chair support to continue firm surface carryover home to perform HEP and ADL performance. Pt has orthopedic appt with Dr Fernando for further assessment of R knee with MRI results. Physical Therapy Plan Frequency and Duration Frequency of 2x/Week Treatment Plan of Care Start 09/06/24 Date Plan of Care End 11/15/24 Date Therapeutic Interventions Therapeutic Balance Training,Gait Training,Home Exercise Program, Interventions Manual Therapy,Neuromuscular Re-education,Patient/ Caregiver Education,Self-Care/Home Management,Soft Tissue Mobilization,Therapeutic Activities,Therapeutic Exercises Modalities Electric Stimulation Next Visit Focus/Plan Next Note Type Treatment Note Next Visit Plan Recheck HEP, continue use metronome for improve R knee mechanics walking. POC: recheck prone quad stretch on yoga mat/floor. ideas functional AROM/strengthening activities: stool knee flex/ext walking, standing resisted walk fwd/bwd ( sport cord). ( Possibly heel raise with focus on ecc for controlling fwd momentum for patient during gait) POC: Quad strengthening, balance, and gait training
--- NOTE | 2024-10-03 12:17 | PT.OTN ---
Current Diagnoses Other symptoms and signs involving the musculoskeletal system (10/03/24) Physical Therapy Treatment Note PT-OP-A Visit Information Start: 09/06/24 13:00 Freq: Status: Active Protocol: Document 10/03/24 11:35 DCW (Rec: 10/03/24 12:17 DCW [id number]) Out-Patient Physical Therapy Visit Information Visit Information Visit Type Progress Note Visit Start Time 11:35 Visit Stop Time 12:15 Visit Number 6 Number of DIRECTOR OF SAFETY Visits 0 Precautions Precautions Impression R knee MRI: 1. Tear of the medial meniscus with marked extrusion of the medial meniscus body. 2. Focal full-thickness tear of the proximal MCL without ligament retraction. 3. 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 4. Large knee effusion. Moderate sized, partially ruptured popliteal cyst. 1.0 cm ossified body in the intercondylar notch. PT-OP-B Current Condition Start: 09/06/24 13:00 Freq: Status: Active Protocol: Document 09/06/24 13:45 LFG (Rec: 09/06/24 15:07 LFG [id number]) Current Condition History of Current Condition History of Current Pt is a 74 year old female returning to physical Condition therapy with complaints of R leg weakness, stiffness and loss of sensation from her inner thigh all the way down to her ankle. 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 DC from PT on 01/21/24. She comes in today with a cane but says she only occasionally actually needs it. While in [place] she was attending physical therapy and also mentions one of the therapists suspects she might have an ACL tear but hasn't had any imaging done. She reports that she is still gardening and doing light/easy hikes with her friend but she has trouble squatting down. She also mentions that she is doing water aerobics/activities such as walking in the water which can challenges her balance. Treatment Goals Patient/Caregiver Goals are to go back to normal person walking the way Goals she did before without a limp. She also states that she would like to go back to hiking as at the moment she has only been able to do small/light hikes Prior Functional Status Baseline Function- Independent ADL's Baseline Function- Independent Mobility PT-OP-C Subjective Start: 09/06/24 13:00 Freq: Status: Active Protocol: Document 10/03/24 11:35 DCW (Rec: 10/03/24 12:17 DCW [id number]) OP-PT Subjective Patient Comments Patient Comments Pt reports her ortho appointment was cancelled, so she is going to be seen tomorrow. PT-OP-D Balance Start: 09/06/24 13:00 Freq: Status: Active Protocol: Document 09/06/24 13:45 LFG (Rec: 09/06/24 15:07 LFG [id number]) Balance Tests Single Limb Standing Single Limb- Right 1 sec before losing balance Single Limb- Left able to hold for about 15 sec w/ swaying, wobbling, and frequent UE help PT-OP-E Functional Tests Start: 09/06/24 13:00 Freq: Status: Active Protocol: Document 09/06/24 13:45 LFG (Rec: 09/06/24 15:15 LFG [id number]) Functional Tests 30 Second Sit to Stand Test Score 10x Comments bilateral UE help PT-OP-G Mobility & Gait Start: 09/06/24 15:07 Freq: Status: Active Protocol: Document 09/06/24 13:45 LFG (Rec: 09/06/24 15:15 LFG [id number]) OP Gait Assessment Gait Gait Assistance Independent Required: Able to Maintain Yes Weight Bearing Status During Gait Comments Gait Comments R foot slightly externally rotated in stance phase, L foot excessive pronation during stance phase, compensatory R hip hike to clear leg through swing phase PT-OP-L Special Tests Start: 09/06/24 15:07 Freq: Status: Active Protocol: Document 09/06/24 13:45 LFG (Rec: 09/06/24 15:15 LFG [id number]) Special Tests Hip Special Tests Derrick Test Results negative bilaterally Comments R rectus femoris tighter than L Knee Special Tests Anterior Draw Test Results negative Comments slight give bilaterally, possible laxity PT-OP-M Strength Start: 09/06/24 13:00 Freq: Status: Active Protocol: Document 09/06/24 13:45 LFG (Rec: 09/06/24 15:07 LFG [id number]) Hip Strength Hip Manual Muscle Testing Left Flexion (L2) 4- Good- Abduction 4 Good Adduction 3+ Fair+ External Rotation 4- Good- Internal Rotation 4 Good Right Flexion (L2) 4- Good- Abduction 4 Good Adduction 4 Good External Rotation 4- Good- Internal Rotation 4 Good Knee Strength Knee Manual Muscle Testing Left Flexion (S2) 4+ Good+ Extension (L3) 4+ Good+ Right Flexion (S2) 4+ Good+ Extension (L3) 3+ Fair+ Ankle/Foot Strength Ankle and Foot Manual Muscle Testing Left Dorsiflexion (L4) 4+ Good+ Plantarflexion (S1) 4+ Good+ Right Dorsiflexion (L4) 4+ Good+ Plantarflexion (S1) 4+ Good+ PT-OP-Q Treatments Start: 09/06/24 13:00 Freq: Status: Active Protocol: Document 10/03/24 11:35 DCW (Rec: 10/03/24 12:17 DCW [id number]) Cardio Equipment Recumbent Bicycle Duration (Minutes) 6 Resistance 6 Seat Position 4 Gym Equipment Shuttle Recovery Bilateral Squats Resistance 100# (four navy) Shuttle Recovery Stable Platform Reps/Time x20 Unilateral Squats Resistance 62# (two navy) Shuttle Recovery Stable Platform Reps/Time 20 reps each LE Shuttle Balance Red Details WBOS, Stagger, Lateral weight shift Neuro Re-Education Treatment Balance Activities SLS Details SLS Equipment // bars Tandem Details Tandem ambulation Equipment // bars PT-OP-T Assessment and Plan Start: 09/06/24 13:00 Freq: Status: Active Protocol: Document 10/03/24 11:35 DCW (Rec: 10/03/24 12:17 DCW [id number]) Physical Therapy Assessment Impairments Impairments Activity Tolerance,Balance,Functional Activities, Functional Mobility,Gait,Sensation,Strength Goals Three Impairment Pt has previous HEP(s) from both PT in [place] and [place] since last fall Short Term Goal (STG Pt will narrow down their most relevant and appropriate ) exercises into a new and updated HEP STG Duration 10/27/24 Two Impairment Pt demonstrating 10x 30sec sit to stand with constant bilateral UE help [employer] Consultant Goal (LTG) Pt will improve 30 sec sit to stand to 12x w/ no UE help 09/26/24: 11 reps in 30 sec, light contact chair for bal support. LTG Duration 11/06/24 One Impairment Pt currently demonstrating 3+/5 MMT right quad Snf Goal (LTG) Pt to improve right quad strength to a 4+/5 to improve sit to stand, squat, and gait activity tolerance LTG Duration 11/06/24 Assessment Summary Assessment Pt progressing well, making progress toward goals. Demonstrating increased quad control and contraction, improving gait. Will follow-up next visit regarding visit with ortho about her knee. Continue to focus on LE strengthening, balance, gait, and functional mobility. Physical Therapy Plan Frequency and Duration Frequency of 2x/Week Treatment Plan of Care Start 09/06/24 Date Plan of Care End 11/15/24 Date Therapeutic Interventions Therapeutic Balance Training,Gait Training,Home Exercise Program, Interventions Manual Therapy,Neuromuscular Re-education,Patient/ Caregiver Education,Self-Care/Home Management,Soft Tissue Mobilization,Therapeutic Activities,Therapeutic Exercises Modalities Electric Stimulation Next Visit Focus/Plan Next Note Type Treatment Note Next Visit Plan Recheck HEP, continue use metronome for improve R knee mechanics walking. POC: recheck prone quad stretch on yoga mat/floor. ideas functional AROM/strengthening activities: stool knee flex/ext walking, standing resisted walk fwd/bwd ( sport cord). ( Possibly heel raise with focus on ecc for controlling fwd momentum for patient during gait) POC: Quad strengthening, balance, and gait training
--- NOTE | 2024-10-05 12:37 | PT.OTN ---
Current Diagnoses Other symptoms and signs involving the musculoskeletal system (10/05/24) Physical Therapy Treatment Note PT-OP-A Visit Information Start: 09/06/24 13:00 Freq: Status: Active Protocol: Document 10/05/24 11:33 AB (Rec: 10/05/24 12:37 AB [id number]) Out-Patient Physical Therapy Visit Information Visit Information Visit Type Treatment Note Visit Note Access Code: [email or web address] Visit Start Time 11:34 Visit Stop Time 12:18 Visit Number 7 Number of PATIENT DAY COORDINATOR Visits 1 PT-OP-B Current Condition Start: 09/06/24 13:00 Freq: Status: Active Protocol: Document 09/06/24 13:45 LFG (Rec: 09/06/24 15:07 LFG [id number]) Current Condition History of Current Condition History of Current Pt is a 74 year old female returning to physical Condition therapy with complaints of R leg weakness, stiffness and loss of sensation from her inner thigh all the way down to her ankle. 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 DC from PT on 01/21/24. She comes in today with a cane but says she only occasionally actually needs it. While in [place] she was attending physical therapy and also mentions one of the therapists suspects she might have an ACL tear but hasn't had any imaging done. She reports that she is still gardening and doing light/easy hikes with her friend but she has trouble squatting down. She also mentions that she is doing water aerobics/activities such as walking in the water which can challenges her balance. Treatment Goals Patient/Caregiver Goals are to go back to normal person walking the way Goals she did before without a limp. She also states that she would like to go back to hiking as at the moment she has only been able to do small/light hikes Prior Functional Status Baseline Function- Independent ADL's Baseline Function- Independent Mobility PT-OP-C Subjective Start: 09/06/24 13:00 Freq: Status: Active Protocol: Document 10/05/24 11:33 AB (Rec: 10/05/24 12:37 AB [id number]) OP-PT Subjective Patient Comments Patient Comments Patient reports she had a hylaruonic injection yesterday. Patient reports feeling less stiffness, and patient reports she was not given any precautions, but she didn't ask. PT-OP-D Balance Start: 09/06/24 13:00 Freq: Status: Active Protocol: Document 09/06/24 13:45 LFG (Rec: 09/06/24 15:07 LFG [id number]) Balance Tests Single Limb Standing Single Limb- Right 1 sec before losing balance Single Limb- Left able to hold for about 15 sec w/ swaying, wobbling, and frequent UE help PT-OP-E Functional Tests Start: 09/06/24 13:00 Freq: Status: Active Protocol: Document 09/06/24 13:45 LFG (Rec: 09/06/24 15:15 LFG [id number]) Functional Tests 30 Second Sit to Stand Test Score 10x Comments bilateral UE help PT-OP-G Mobility & Gait Start: 09/06/24 15:07 Freq: Status: Active Protocol: Document 09/06/24 13:45 LFG (Rec: 09/06/24 15:15 LFG [id number]) OP Gait Assessment Gait Gait Assistance Independent Required: Able to Maintain Yes Weight Bearing Status During Gait Comments Gait Comments R foot slightly externally rotated in stance phase, L foot excessive pronation during stance phase, compensatory R hip hike to clear leg through swing phase PT-OP-L Special Tests Start: 09/06/24 15:07 Freq: Status: Active Protocol: Document 09/06/24 13:45 LFG (Rec: 09/06/24 15:15 LFG [id number]) Special Tests Hip Special Tests Derrick Test Results negative bilaterally Comments R rectus femoris tighter than L Knee Special Tests Anterior Draw Test Results negative Comments slight give bilaterally, possible laxity PT-OP-M Strength Start: 09/06/24 13:00 Freq: Status: Active Protocol: Document 09/06/24 13:45 LFG (Rec: 09/06/24 15:07 LFG [id number]) Hip Strength Hip Manual Muscle Testing Left Flexion (L2) 4- Good- Abduction 4 Good Adduction 3+ Fair+ External Rotation 4- Good- Internal Rotation 4 Good Right Flexion (L2) 4- Good- Abduction 4 Good Adduction 4 Good External Rotation 4- Good- Internal Rotation 4 Good Knee Strength Knee Manual Muscle Testing Left Flexion (S2) 4+ Good+ Extension (L3) 4+ Good+ Right Flexion (S2) 4+ Good+ Extension (L3) 3+ Fair+ Ankle/Foot Strength Ankle and Foot Manual Muscle Testing Left Dorsiflexion (L4) 4+ Good+ Plantarflexion (S1) 4+ Good+ Right Dorsiflexion (L4) 4+ Good+ Plantarflexion (S1) 4+ Good+ PT-OP-Q Treatments Start: 09/06/24 13:00 Freq: Status: Active Protocol: Document 10/05/24 11:33 AB (Rec: 10/05/24 12:37 AB [id number]) Therapeutic Exercises Supine Exercises Mod Derrick stretch Supine Exercise Name HEP Reps/Minutes 60 sec each LE AROM knee flex X 10 Comments Verbal cues Sidelying Exercises Hip abduction Sidelying Exercise hip abductions HEP Name Side bilateral Resistance TB #1 at thighs and level 2 Reps/Minutes 15x each band Comments Verbal cues for LE back Reverse clamshell Sidelying Exercise reverse clamshells HEP Name Side right Resistance AROM Equipment Used level one band and level 2 Reps/Minutes 15x each band Comments cues for maintaining knees together Clamshells Sidelying Exercise HEP Review Name Side right Resistance TB #1 at thighs and level 2 Reps/Minutes X 15 each band Comments VC for LE position Standing Exercises Bilateral heel raise Standing Exercise HEP Name Side bilateral Reps/Minutes X 15 Comments VC to lower heels slowly Manual Therapy Treatment Consent Patient gave verbal Yes consent for manual treatment Soft Tissue Mobilization R knee Mobilization Type Manual Lymphatic Drainage,Other Intensity/Depth Moderate Body Position Hooklying Comments and superficial PT-OP-T Assessment and Plan Start: 09/06/24 13:00 Freq: Status: Active Protocol: Document 10/05/24 11:33 AB (Rec: 10/05/24 12:37 AB [id number]) Physical Therapy Assessment Goals Three Impairment Pt has previous HEP(s) from both PT in [place] and [place] since last fall Short Term Goal (STG Pt will narrow down their most relevant and appropriate ) exercises into a new and updated HEP STG Duration 10/27/24 Two Impairment Pt demonstrating 10x 30sec sit to stand with constant bilateral UE help Correction Goal (LTG) Pt will improve 30 sec sit to stand to 12x w/ no UE help 09/26/24: 11 reps in 30 sec, light contact chair for bal support. LTG Duration 11/06/24 One Impairment Pt currently demonstrating 3+/5 MMT right quad Correction Goal (LTG) Pt to improve right quad strength to a 4+/5 to improve sit to stand, squat, and gait activity tolerance LTG Duration 11/06/24 Assessment Summary Assessment bilateral HR added to HEP and increased level bands for sidelying hip strengthening this session. Patient reports no pain end of session. Physical Therapy Plan Frequency and Duration Frequency of 2x/Week Treatment Plan of Care Start 09/06/24 Date Plan of Care End 11/15/24 Date Next Visit Focus/Plan Next Note Type Treatment Note Next Visit Plan Recheck HEP, continue use metronome for improve R knee mechanics walking. POC: recheck prone quad stretch on yoga mat/floor. ideas functional AROM/strengthening activities: stool knee flex/ext walking, standing resisted walk fwd/bwd ( sport cord). POC: Quad strengthening, balance, and gait training
--- NOTE | 2024-10-10 12:58 | PT.OTN ---
Current Diagnoses Other symptoms and signs involving the musculoskeletal system (10/10/24) Physical Therapy Treatment Note PT-OP-A Visit Information Start: 09/06/24 13:00 Freq: Status: Active Protocol: Document 10/10/24 11:33 AB (Rec: 10/10/24 12:28 AB [id number]) Out-Patient Physical Therapy Visit Information Visit Information Visit Type Treatment Note Visit Note Access Code: [email or web address] Visit Start Time 11:34 Visit Stop Time 12:20 Visit Number 8 ( PN due 11/02/2024) Number of TOWER ERECTOR Visits 2 PT-OP-B Current Condition Start: 09/06/24 13:00 Freq: Status: Active Protocol: Document 09/06/24 13:45 LFG (Rec: 09/06/24 15:07 LFG [id number]) Current Condition History of Current Condition History of Current Pt is a 74 year old female returning to physical Condition therapy with complaints of R leg weakness, stiffness and loss of sensation from her inner thigh all the way down to her ankle. 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 DC from PT on 01/21/24. She comes in today with a cane but says she only occasionally actually needs it. While in [place] she was attending physical therapy and also mentions one of the therapists suspects she might have an ACL tear but hasn't had any imaging done. She reports that she is still gardening and doing light/easy hikes with her friend but she has trouble squatting down. She also mentions that she is doing water aerobics/activities such as walking in the water which can challenges her balance. Treatment Goals Patient/Caregiver Goals are to go back to normal person walking the way Goals she did before without a limp. She also states that she would like to go back to hiking as at the moment she has only been able to do small/light hikes Prior Functional Status Baseline Function- Independent ADL's Baseline Function- Independent Mobility PT-OP-C Subjective Start: 09/06/24 13:00 Freq: Status: Active Protocol: Document 10/10/24 11:33 AB (Rec: 10/10/24 12:28 AB [id number]) OP-PT Subjective Patient Comments Patient Comments Patient reports HEP is helping and the injection is loosening things up. PT-OP-D Balance Start: 09/06/24 13:00 Freq: Status: Active Protocol: Document 09/06/24 13:45 LFG (Rec: 09/06/24 15:07 LFG [id number]) Balance Tests Single Limb Standing Single Limb- Right 1 sec before losing balance Single Limb- Left able to hold for about 15 sec w/ swaying, wobbling, and frequent UE help PT-OP-E Functional Tests Start: 09/06/24 13:00 Freq: Status: Active Protocol: Document 09/06/24 13:45 LFG (Rec: 09/06/24 15:15 LFG [id number]) Functional Tests 30 Second Sit to Stand Test Score 10x Comments bilateral UE help PT-OP-G Mobility & Gait Start: 09/06/24 15:07 Freq: Status: Active Protocol: Document 09/06/24 13:45 LFG (Rec: 09/06/24 15:15 LFG [id number]) OP Gait Assessment Gait Gait Assistance Independent Required: Able to Maintain Yes Weight Bearing Status During Gait Comments Gait Comments R foot slightly externally rotated in stance phase, L foot excessive pronation during stance phase, compensatory R hip hike to clear leg through swing phase PT-OP-L Special Tests Start: 09/06/24 15:07 Freq: Status: Active Protocol: Document 09/06/24 13:45 LFG (Rec: 09/06/24 15:15 LFG [id number]) Special Tests Hip Special Tests Derrick Test Results negative bilaterally Comments R rectus femoris tighter than L Knee Special Tests Anterior Draw Test Results negative Comments slight give bilaterally, possible laxity PT-OP-M Strength Start: 09/06/24 13:00 Freq: Status: Active Protocol: Document 09/06/24 13:45 LFG (Rec: 09/06/24 15:07 LFG [id number]) Hip Strength Hip Manual Muscle Testing Left Flexion (L2) 4- Good- Abduction 4 Good Adduction 3+ Fair+ External Rotation 4- Good- Internal Rotation 4 Good Right Flexion (L2) 4- Good- Abduction 4 Good Adduction 4 Good External Rotation 4- Good- Internal Rotation 4 Good Knee Strength Knee Manual Muscle Testing Left Flexion (S2) 4+ Good+ Extension (L3) 4+ Good+ Right Flexion (S2) 4+ Good+ Extension (L3) 3+ Fair+ Ankle/Foot Strength Ankle and Foot Manual Muscle Testing Left Dorsiflexion (L4) 4+ Good+ Plantarflexion (S1) 4+ Good+ Right Dorsiflexion (L4) 4+ Good+ Plantarflexion (S1) 4+ Good+ PT-OP-Q Treatments Start: 09/06/24 13:00 Freq: Status: Active Protocol: Document 10/10/24 11:33 AB (Rec: 10/10/24 12:28 AB [id number]) Therapeutic Exercises Supine Exercises Mod Derrick stretch Supine Exercise Name HEP Reps/Minutes X 2 X 60 sec each LE AROM knee flex X 10 Comments Verbal cues Sitting Exercises Seated hip abd with band Sitting Exercise HEP Name Side bilateral Resistance level 3 band Reps/Minutes one min X 1 Comments verbal cues Standing Exercises steps Standing Exercise 4 inch 1. step up 2. step down 3. 6 inch step up HEP Name Side right Resistance bilat for 6 inch step up Reps/Minutes step up X 10 4 inch and 6 inch not daniela step down 4 inch Comments Verbal and visual cues, monitored for pain Resisted stepping Standing Exercise sideways, fwd/bwd UE use Name Side bilateral Resistance L4 Equipment Used SBA Reps/Minutes 10 feet L and R X 3 and fwd back X 3 each Comments verbal cues to avoid toeing out Manual Therapy Treatment Consent Patient gave verbal Yes consent for manual treatment Soft Tissue Mobilization R knee Mobilization Type Manual Lymphatic Drainage,Other Intensity/Depth Moderate Body Position Hooklying Comments and superficial PT-OP-T Assessment and Plan Start: 09/06/24 13:00 Freq: Status: Active Protocol: Document 10/10/24 11:33 AB (Rec: 10/10/24 12:28 AB [id number]) Physical Therapy Assessment Goals Three Impairment Pt has previous HEP(s) from both PT in [place] and [place] since last fall Short Term Goal (STG Pt will narrow down their most relevant and appropriate ) exercises into a new and updated HEP STG Duration 10/27/24 Two Impairment Pt demonstrating 10x 30sec sit to stand with constant bilateral UE help Detention Goal (LTG) Pt will improve 30 sec sit to stand to 12x w/ no UE help 09/26/24: 11 reps in 30 sec, light contact chair for bal support. LTG Duration 11/06/24 One Impairment Pt currently demonstrating 3+/5 MMT right quad Health Teacher Goal (LTG) Pt to improve right quad strength to a 4+/5 to improve sit to stand, squat, and gait activity tolerance LTG Duration 11/06/24 Assessment Summary Assessment Good daniela to step up 6 inch step with UE use, step down 4 inch step not daniela inc UE use, dec depth. Patient reports having no pain end of session. Physical Therapy Plan Frequency and Duration Frequency of 2x/Week Treatment Plan of Care Start 09/06/24 Date Plan of Care End 11/15/24 Date Next Visit Focus/Plan Next Note Type Treatment Note Next Visit Plan Recheck HEP, continue use metronome for improve R knee mechanics walking. POC: recheck prone quad stretch on yoga mat/floor. ideas functional AROM/strengthening activities: stool knee flex/ext walking, standing resisted walk fwd/bwd ( sport cord). POC: Quad strengthening, balance, and gait training
--- NOTE | 2024-10-12 12:17 | PT.OTN ---
Current Diagnoses Other symptoms and signs involving the musculoskeletal system (10/12/24) Physical Therapy Treatment Note PT-OP-A Visit Information Start: 09/06/24 13:00 Freq: Status: Active Protocol: Document 10/12/24 11:30 DCW (Rec: 10/12/24 12:17 DCW [id number]) Out-Patient Physical Therapy Visit Information Visit Information Visit Type Progress Note Visit Start Time 11:30 Visit Stop Time 12:15 Visit Number 9 Number of ORACLE FINANCIAL APPLICATION DEVELOPER Visits 0 Evaluation Information Evaluation Date 09/06/24 PT-OP-B Current Condition Start: 09/06/24 13:00 Freq: Status: Active Protocol: Document 09/06/24 13:45 LFG (Rec: 09/06/24 15:07 LFG [id number]) Current Condition History of Current Condition History of Current Pt is a 74 year old female returning to physical Condition therapy with complaints of R leg weakness, stiffness and loss of sensation from her inner thigh all the way down to her ankle. 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 DC from PT on 01/21/24. She comes in today with a cane but says she only occasionally actually needs it. While in [place] she was attending physical therapy and also mentions one of the therapists suspects she might have an ACL tear but hasn't had any imaging done. She reports that she is still gardening and doing light/easy hikes with her friend but she has trouble squatting down. She also mentions that she is doing water aerobics/activities such as walking in the water which can challenges her balance. Treatment Goals Patient/Caregiver Goals are to go back to normal person walking the way Goals she did before without a limp. She also states that she would like to go back to hiking as at the moment she has only been able to do small/light hikes Prior Functional Status Baseline Function- Independent ADL's Baseline Function- Independent Mobility PT-OP-C Subjective Start: 09/06/24 13:00 Freq: Status: Active Protocol: Document 10/12/24 11:30 DCW (Rec: 10/12/24 12:17 DCW [id number]) OP-PT Subjective Patient Comments Patient Comments Pt reports her hyaluronic acid injection hasn't helped much with the stiffness, but still notes her knee is feeling pretty good. PT-OP-D Balance Start: 09/06/24 13:00 Freq: Status: Active Protocol: Document 09/06/24 13:45 LFG (Rec: 09/06/24 15:07 LFG [id number]) Balance Tests Single Limb Standing Single Limb- Right 1 sec before losing balance Single Limb- Left able to hold for about 15 sec w/ swaying, wobbling, and frequent UE help PT-OP-E Functional Tests Start: 09/06/24 13:00 Freq: Status: Active Protocol: Document 09/06/24 13:45 LFG (Rec: 09/06/24 15:15 LFG [id number]) Functional Tests 30 Second Sit to Stand Test Score 10x Comments bilateral UE help PT-OP-G Mobility & Gait Start: 09/06/24 15:07 Freq: Status: Active Protocol: Document 09/06/24 13:45 LFG (Rec: 09/06/24 15:15 LFG [id number]) OP Gait Assessment Gait Gait Assistance Independent Required: Able to Maintain Yes Weight Bearing Status During Gait Comments Gait Comments R foot slightly externally rotated in stance phase, L foot excessive pronation during stance phase, compensatory R hip hike to clear leg through swing phase PT-OP-L Special Tests Start: 09/06/24 15:07 Freq: Status: Active Protocol: Document 09/06/24 13:45 LFG (Rec: 09/06/24 15:15 LFG [id number]) Special Tests Hip Special Tests Derrick Test Results negative bilaterally Comments R rectus femoris tighter than L Knee Special Tests Anterior Draw Test Results negative Comments slight give bilaterally, possible laxity PT-OP-M Strength Start: 09/06/24 13:00 Freq: Status: Active Protocol: Document 09/06/24 13:45 LFG (Rec: 09/06/24 15:07 LFG [id number]) Hip Strength Hip Manual Muscle Testing Left Flexion (L2) 4- Good- Abduction 4 Good Adduction 3+ Fair+ External Rotation 4- Good- Internal Rotation 4 Good Right Flexion (L2) 4- Good- Abduction 4 Good Adduction 4 Good External Rotation 4- Good- Internal Rotation 4 Good Knee Strength Knee Manual Muscle Testing Left Flexion (S2) 4+ Good+ Extension (L3) 4+ Good+ Right Flexion (S2) 4+ Good+ Extension (L3) 3+ Fair+ Ankle/Foot Strength Ankle and Foot Manual Muscle Testing Left Dorsiflexion (L4) 4+ Good+ Plantarflexion (S1) 4+ Good+ Right Dorsiflexion (L4) 4+ Good+ Plantarflexion (S1) 4+ Good+ PT-OP-Q Treatments Start: 09/06/24 13:00 Freq: Status: Active Protocol: Document 10/12/24 11:30 DCW (Rec: 10/12/24 12:17 DCW [id number]) Gym Equipment Shuttle Recovery Bilateral Squats Resistance 100# (four navy) Shuttle Recovery Stable Platform Reps/Time x20 Unilateral Squats Resistance 62# (two navy) Shuttle Recovery Stable Platform Reps/Time 20 reps each LE Shuttle Balance Red Details WBOS, Staggered Therapeutic Exercises Standing Exercises steps Standing Exercise Step-ups/downs Name Side right Resistance 6 step up/4 step down Resisted stepping Standing Exercise sideways, fwd/bwd UE use Name Side bilateral Resistance Green loop Equipment Used SBA Neuro Re-Education Treatment Balance Activities BOSU Lunge Details BOSU Lunge - Lateral T-band pull Equipment BOSU, Lv 1 T-band SLS Details SLS Surface AirEx Equipment // bars Tandem Details Tandem ambulation Equipment // bars PT-OP-T Assessment and Plan Start: 09/06/24 13:00 Freq: Status: Active Protocol: Document 10/12/24 11:30 DCW (Rec: 10/12/24 12:17 DCW [id number]) Physical Therapy Assessment Impairments Impairments Activity Tolerance,Balance,Functional Activities, Functional Mobility,Gait,Sensation,Strength Goals Three Impairment Pt has previous HEP(s) from both PT in [place] and [place] since last fall Short Term Goal (STG Pt will narrow down their most relevant and appropriate ) exercises into a new and updated HEP STG Duration 10/27/24 Two Impairment Pt demonstrating 10x 30sec sit to stand with constant bilateral UE help [employer] Manager Goal (LTG) Pt will improve 30 sec sit to stand to 12x w/ no UE help 09/26/24: 11 reps in 30 sec, light contact chair for bal support. LTG Duration 11/06/24 One Impairment Pt currently demonstrating 3+/5 MMT right quad Jail Goal (LTG) Pt to improve right quad strength to a 4+/5 to improve sit to stand, squat, and gait activity tolerance LTG Duration 11/06/24 Assessment Summary Assessment Pt continues to progress well overall, showing improvement with quad contraction and functional mobility. Pt much more [place] when up ambulating without an assistive device, no recent falls/LOB. Continue to focus on LE strengthening, balance, and improving activity tolerance. Physical Therapy Plan Frequency and Duration Frequency of 2x/Week Treatment Plan of Care Start 09/06/24 Date Plan of Care End 11/15/24 Date Therapeutic Interventions Therapeutic Balance Training,Gait Training,Home Exercise Program, Interventions Manual Therapy,Neuromuscular Re-education,Patient/ Caregiver Education,Self-Care/Home Management,Soft Tissue Mobilization,Therapeutic Activities,Therapeutic Exercises Modalities Electric Stimulation Next Visit Focus/Plan Next Note Type Treatment Note Next Visit Plan Recheck HEP, continue use metronome for improve R knee mechanics walking. POC: recheck prone quad stretch on yoga mat/floor. ideas functional AROM/strengthening activities: stool knee flex/ext walking, standing resisted walk fwd/bwd ( sport cord). POC: Quad strengthening, balance, and gait training
--- NOTE | 2024-10-25 12:17 | PT.OTN ---
Current Diagnoses Other symptoms and signs involving the musculoskeletal system (10/25/24) Physical Therapy Treatment Note PT-OP-A Visit Information Start: 09/06/24 13:00 Freq: Status: Active Protocol: Document 10/25/24 11:30 DCW (Rec: 10/25/24 12:17 DCW [id number]) Out-Patient Physical Therapy Visit Information Visit Information Visit Type Treatment Note Visit Start Time 11:30 Visit Stop Time 12:15 Visit Number 10 Number of FORK ASSEMBLER Visits 0 Evaluation Information Evaluation Date 09/06/24 PT-OP-B Current Condition Start: 09/06/24 13:00 Freq: Status: Active Protocol: Document 09/06/24 13:45 LFG (Rec: 09/06/24 15:07 LFG [id number]) Current Condition History of Current Condition History of Current Pt is a 74 year old female returning to physical Condition therapy with complaints of R leg weakness, stiffness and loss of sensation from her inner thigh all the way down to her ankle. 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 DC from PT on 01/21/24. She comes in today with a cane but says she only occasionally actually needs it. While in [place] she was attending physical therapy and also mentions one of the therapists suspects she might have an ACL tear but hasn't had any imaging done. She reports that she is still gardening and doing light/easy hikes with her friend but she has trouble squatting down. She also mentions that she is doing water aerobics/activities such as walking in the water which can challenges her balance. Treatment Goals Patient/Caregiver Goals are to go back to normal person walking the way Goals she did before without a limp. She also states that she would like to go back to hiking as at the moment she has only been able to do small/light hikes Prior Functional Status Baseline Function- Independent ADL's Baseline Function- Independent Mobility PT-OP-C Subjective Start: 09/06/24 13:00 Freq: Status: Active Protocol: Document 10/25/24 11:30 DCW (Rec: 10/25/24 12:17 DCW [id number]) OP-PT Subjective Patient Comments Patient Comments Pt reports she is feeling pretty good today. PT-OP-D Balance Start: 09/06/24 13:00 Freq: Status: Active Protocol: Document 09/06/24 13:45 LFG (Rec: 09/06/24 15:07 LFG [id number]) Balance Tests Single Limb Standing Single Limb- Right 1 sec before losing balance Single Limb- Left able to hold for about 15 sec w/ swaying, wobbling, and frequent UE help PT-OP-E Functional Tests Start: 09/06/24 13:00 Freq: Status: Active Protocol: Document 09/06/24 13:45 LFG (Rec: 09/06/24 15:15 LFG [id number]) Functional Tests 30 Second Sit to Stand Test Score 10x Comments bilateral UE help PT-OP-G Mobility & Gait Start: 09/06/24 15:07 Freq: Status: Active Protocol: Document 09/06/24 13:45 LFG (Rec: 09/06/24 15:15 LFG [id number]) OP Gait Assessment Gait Gait Assistance Independent Required: Able to Maintain Yes Weight Bearing Status During Gait Comments Gait Comments R foot slightly externally rotated in stance phase, L foot excessive pronation during stance phase, compensatory R hip hike to clear leg through swing phase PT-OP-L Special Tests Start: 09/06/24 15:07 Freq: Status: Active Protocol: Document 09/06/24 13:45 LFG (Rec: 09/06/24 15:15 LFG [id number]) Special Tests Hip Special Tests Derrick Test Results negative bilaterally Comments R rectus femoris tighter than L Knee Special Tests Anterior Draw Test Results negative Comments slight give bilaterally, possible laxity PT-OP-M Strength Start: 09/06/24 13:00 Freq: Status: Active Protocol: Document 09/06/24 13:45 LFG (Rec: 09/06/24 15:07 LFG [id number]) Hip Strength Hip Manual Muscle Testing Left Flexion (L2) 4- Good- Abduction 4 Good Adduction 3+ Fair+ External Rotation 4- Good- Internal Rotation 4 Good Right Flexion (L2) 4- Good- Abduction 4 Good Adduction 4 Good External Rotation 4- Good- Internal Rotation 4 Good Knee Strength Knee Manual Muscle Testing Left Flexion (S2) 4+ Good+ Extension (L3) 4+ Good+ Right Flexion (S2) 4+ Good+ Extension (L3) 3+ Fair+ Ankle/Foot Strength Ankle and Foot Manual Muscle Testing Left Dorsiflexion (L4) 4+ Good+ Plantarflexion (S1) 4+ Good+ Right Dorsiflexion (L4) 4+ Good+ Plantarflexion (S1) 4+ Good+ PT-OP-Q Treatments Start: 09/06/24 13:00 Freq: Status: Active Protocol: Document 10/25/24 11:30 DCW (Rec: 10/25/24 12:17 DCW [id number]) Gym Equipment Shuttle Recovery Bilateral Squats Resistance 100# (four navy) Shuttle Recovery Stable Platform Reps/Time x20 Unilateral Squats Resistance 62# (two navy) Shuttle Recovery Stable Platform Reps/Time 20 reps each LE Shuttle Balance Red Details Staggered, Lateral weight shift Therapeutic Exercises Standing Exercises Hip Extension Standing Exercise Hip Extension Name Side bilateral Resistance Green loop Hip Abduction Standing Exercise Hip Abduction Name Side bilateral Resistance Green loop steps Standing Exercise Step-ups/downs Name Side right Resistance 8 step up/5 step down Comments UE assist Resisted stepping Standing Exercise sideways, fwd/bwd UE use Name Side bilateral Resistance Green loop Equipment Used // bars PT-OP-T Assessment and Plan Start: 09/06/24 13:00 Freq: Status: Active Protocol: Document 10/25/24 11:30 DCW (Rec: 10/25/24 12:17 DCW [id number]) Physical Therapy Assessment Impairments Impairments Activity Tolerance,Balance,Functional Activities, Functional Mobility,Gait,Sensation,Strength Goals Three Impairment Pt has previous HEP(s) from both PT in [place] and [place] since last fall Short Term Goal (STG Pt will narrow down their most relevant and appropriate ) exercises into a new and updated HEP STG Duration 10/27/24 Two Impairment Pt demonstrating 10x 30sec sit to stand with constant bilateral UE help Manager Fraud Goal (LTG) Pt will improve 30 sec sit to stand to 12x w/ no UE help 09/26/24: 11 reps in 30 sec, light contact chair for bal support. LTG Duration 11/06/24 One Impairment Pt currently demonstrating 3+/5 MMT right quad Manager Fraud Goal (LTG) Pt to improve right quad strength to a 4+/5 to improve sit to stand, squat, and gait activity tolerance LTG Duration 11/06/24 Assessment Summary Assessment Pt doing well today, good challenge with increased height of step for step-ups/step-downs. Continue to focus on gait, balance, and quad strength. Physical Therapy Plan Frequency and Duration Frequency of 2x/Week Treatment Plan of Care Start 09/06/24 Date Plan of Care End 11/15/24 Date Therapeutic Interventions Therapeutic Balance Training,Gait Training,Home Exercise Program, Interventions Manual Therapy,Neuromuscular Re-education,Patient/ Caregiver Education,Self-Care/Home Management,Soft Tissue Mobilization,Therapeutic Activities,Therapeutic Exercises Modalities Electric Stimulation Next Visit Focus/Plan Next Note Type Treatment Note Next Visit Plan Recheck HEP, continue use metronome for improve R knee mechanics walking. POC: recheck prone quad stretch on yoga mat/floor. ideas functional AROM/strengthening activities: stool knee flex/ext walking, standing resisted walk fwd/bwd ( sport cord). POC: Quad strengthening, balance, and gait training
--- NOTE | 2024-10-27 13:00 | PT.OTN ---
Current Diagnoses Other symptoms and signs involving the musculoskeletal system (10/27/24) Physical Therapy Treatment Note PT-OP-A Visit Information Start: 09/06/24 13:00 Freq: Status: Active Protocol: Document 10/27/24 12:20 DCW (Rec: 10/27/24 13:00 DCW [id number]) Out-Patient Physical Therapy Visit Information Visit Information Visit Type Treatment Note Visit Start Time 12:20 Visit Stop Time 13:00 Visit Number 11 Number of WATER FILTERER HELPER Visits 0 Evaluation Information Evaluation Date 09/06/24 PT-OP-B Current Condition Start: 09/06/24 13:00 Freq: Status: Active Protocol: Document 09/06/24 13:45 LFG (Rec: 09/06/24 15:07 LFG [id number]) Current Condition History of Current Condition History of Current Pt is a 74 year old female returning to physical Condition therapy with complaints of R leg weakness, stiffness and loss of sensation from her inner thigh all the way down to her ankle. 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 DC from PT on 01/21/24. She comes in today with a cane but says she only occasionally actually needs it. While in [place] she was attending physical therapy and also mentions one of the therapists suspects she might have an ACL tear but hasn't had any imaging done. She reports that she is still gardening and doing light/easy hikes with her friend but she has trouble squatting down. She also mentions that she is doing water aerobics/activities such as walking in the water which can challenges her balance. Treatment Goals Patient/Caregiver Goals are to go back to normal person walking the way Goals she did before without a limp. She also states that she would like to go back to hiking as at the moment she has only been able to do small/light hikes Prior Functional Status Baseline Function- Independent ADL's Baseline Function- Independent Mobility PT-OP-C Subjective Start: 09/06/24 13:00 Freq: Status: Active Protocol: Document 10/27/24 12:20 DCW (Rec: 10/27/24 13:00 DCW [id number]) OP-PT Subjective Patient Comments Patient Comments I'm feeling great. I hate to say it, but my legs felt even stronger after I left here last time. I was moving a lot better. But then that glute started killing me. PT-OP-D Balance Start: 09/06/24 13:00 Freq: Status: Active Protocol: Document 09/06/24 13:45 LFG (Rec: 09/06/24 15:07 LFG [id number]) Balance Tests Single Limb Standing Single Limb- Right 1 sec before losing balance Single Limb- Left able to hold for about 15 sec w/ swaying, wobbling, and frequent UE help PT-OP-E Functional Tests Start: 09/06/24 13:00 Freq: Status: Active Protocol: Document 09/06/24 13:45 LFG (Rec: 09/06/24 15:15 LFG [id number]) Functional Tests 30 Second Sit to Stand Test Score 10x Comments bilateral UE help PT-OP-G Mobility & Gait Start: 09/06/24 15:07 Freq: Status: Active Protocol: Document 09/06/24 13:45 LFG (Rec: 09/06/24 15:15 LFG [id number]) OP Gait Assessment Gait Gait Assistance Independent Required: Able to Maintain Yes Weight Bearing Status During Gait Comments Gait Comments R foot slightly externally rotated in stance phase, L foot excessive pronation during stance phase, compensatory R hip hike to clear leg through swing phase PT-OP-L Special Tests Start: 09/06/24 15:07 Freq: Status: Active Protocol: Document 09/06/24 13:45 LFG (Rec: 09/06/24 15:15 LFG [id number]) Special Tests Hip Special Tests Derrick Test Results negative bilaterally Comments R rectus femoris tighter than L Knee Special Tests Anterior Draw Test Results negative Comments slight give bilaterally, possible laxity PT-OP-M Strength Start: 09/06/24 13:00 Freq: Status: Active Protocol: Document 09/06/24 13:45 LFG (Rec: 09/06/24 15:07 LFG [id number]) Hip Strength Hip Manual Muscle Testing Left Flexion (L2) 4- Good- Abduction 4 Good Adduction 3+ Fair+ External Rotation 4- Good- Internal Rotation 4 Good Right Flexion (L2) 4- Good- Abduction 4 Good Adduction 4 Good External Rotation 4- Good- Internal Rotation 4 Good Knee Strength Knee Manual Muscle Testing Left Flexion (S2) 4+ Good+ Extension (L3) 4+ Good+ Right Flexion (S2) 4+ Good+ Extension (L3) 3+ Fair+ Ankle/Foot Strength Ankle and Foot Manual Muscle Testing Left Dorsiflexion (L4) 4+ Good+ Plantarflexion (S1) 4+ Good+ Right Dorsiflexion (L4) 4+ Good+ Plantarflexion (S1) 4+ Good+ PT-OP-Q Treatments Start: 09/06/24 13:00 Freq: Status: Active Protocol: Document 10/27/24 12:20 DCW (Rec: 10/27/24 13:00 DCW [id number]) Gym Equipment Shuttle Recovery Quadruped Details Donkey Kick Resistance 12# Bilateral Squats Resistance 100# (four navy) Shuttle Recovery Stable Platform Reps/Time x20 Unilateral Squats Resistance 62# (two navy) Shuttle Recovery Stable Platform Reps/Time 20 reps each LE Shuttle Balance Red Details WBOS, Staggered, Lateral weight shift Therapeutic Exercises Standing Exercises Resisted stepping Standing Exercise sideways, fwd/bwd UE use Name Side bilateral Resistance Green loop Equipment Used // bars Other Exercises Sliders Other Exercise Name Foot on furniture slider - Abduction Side bilateral PT-OP-T Assessment and Plan Start: 09/06/24 13:00 Freq: Status: Active Protocol: Document 10/27/24 12:20 DCW (Rec: 10/27/24 13:00 DCW [id number]) Physical Therapy Assessment Impairments Impairments Activity Tolerance,Balance,Functional Activities, Functional Mobility,Gait,Sensation,Strength Goals Three Impairment Pt has previous HEP(s) from both PT in [place] and [place] since last fall Short Term Goal (STG Pt will narrow down their most relevant and appropriate ) exercises into a new and updated HEP STG Duration 10/27/24 Two Impairment Pt demonstrating 10x 30sec sit to stand with constant bilateral UE help Carpenter'S Assistant Goal (LTG) Pt will improve 30 sec sit to stand to 12x w/ no UE help 09/26/24: 11 reps in 30 sec, light contact chair for bal support. LTG Duration 11/06/24 One Impairment Pt currently demonstrating 3+/5 MMT right quad Carpenter'S Assistant Goal (LTG) Pt to improve right quad strength to a 4+/5 to improve sit to stand, squat, and gait activity tolerance LTG Duration 11/06/24 Assessment Summary Assessment Continues to progress well, showing good motor control of right quad and glute. Continue to focus on functional mobility and strength. Physical Therapy Plan Frequency and Duration Frequency of 2x/Week Treatment Plan of Care Start 09/06/24 Date Plan of Care End 11/15/24 Date Therapeutic Interventions Therapeutic Balance Training,Gait Training,Home Exercise Program, Interventions Manual Therapy,Neuromuscular Re-education,Patient/ Caregiver Education,Self-Care/Home Management,Soft Tissue Mobilization,Therapeutic Activities,Therapeutic Exercises Modalities Electric Stimulation Next Visit Focus/Plan Next Note Type Treatment Note Next Visit Plan Recheck HEP, continue use metronome for improve R knee mechanics walking. POC: recheck prone quad stretch on yoga mat/floor. ideas functional AROM/strengthening activities: stool knee flex/ext walking, standing resisted walk fwd/bwd ( sport cord). POC: Quad strengthening, balance, and gait training
--- NOTE | 2024-11-01 16:12 | PT.OTN ---
Current Diagnoses Other symptoms and signs involving the musculoskeletal system (11/01/24) Physical Therapy Treatment Note PT-OP-A Visit Information Start: 09/06/24 13:00 Freq: Status: Active Protocol: Document 11/01/24 15:23 AB (Rec: 11/01/24 16:12 AB [id number]) Out-Patient Physical Therapy Visit Information Visit Information Visit Type Treatment Note Visit Note Access Code: [email or web address] Visit Start Time 15:25 Visit Stop Time 16:08 Visit Number 12 Number of BIOFUELS OPERATIONS MANAGER Visits 1 PT-OP-B Current Condition Start: 09/06/24 13:00 Freq: Status: Active Protocol: Document 09/06/24 13:45 LFG (Rec: 09/06/24 15:07 LFG [id number]) Current Condition History of Current Condition History of Current Pt is a 74 year old female returning to physical Condition therapy with complaints of R leg weakness, stiffness and loss of sensation from her inner thigh all the way down to her ankle. 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 DC from PT on 01/21/24. She comes in today with a cane but says she only occasionally actually needs it. While in [place] she was attending physical therapy and also mentions one of the therapists suspects she might have an ACL tear but hasn't had any imaging done. She reports that she is still gardening and doing light/easy hikes with her friend but she has trouble squatting down. She also mentions that she is doing water aerobics/activities such as walking in the water which can challenges her balance. Treatment Goals Patient/Caregiver Goals are to go back to normal person walking the way Goals she did before without a limp. She also states that she would like to go back to hiking as at the moment she has only been able to do small/light hikes Prior Functional Status Baseline Function- Independent ADL's Baseline Function- Independent Mobility PT-OP-C Subjective Start: 09/06/24 13:00 Freq: Status: Active Protocol: Document 11/01/24 15:23 AB (Rec: 11/01/24 16:12 AB [id number]) OP-PT Subjective Patient Comments Patient Comments Patient reports she is stiff and glutes hurt, attributes to too much sitting today. PT-OP-D Balance Start: 09/06/24 13:00 Freq: Status: Active Protocol: Document 09/06/24 13:45 LFG (Rec: 09/06/24 15:07 LFG [id number]) Balance Tests Single Limb Standing Single Limb- Right 1 sec before losing balance Single Limb- Left able to hold for about 15 sec w/ swaying, wobbling, and frequent UE help PT-OP-E Functional Tests Start: 09/06/24 13:00 Freq: Status: Active Protocol: Document 09/06/24 13:45 LFG (Rec: 09/06/24 15:15 LFG [id number]) Functional Tests 30 Second Sit to Stand Test Score 10x Comments bilateral UE help PT-OP-G Mobility & Gait Start: 09/06/24 15:07 Freq: Status: Active Protocol: Document 09/06/24 13:45 LFG (Rec: 09/06/24 15:15 LFG [id number]) OP Gait Assessment Gait Gait Assistance Independent Required: Able to Maintain Yes Weight Bearing Status During Gait Comments Gait Comments R foot slightly externally rotated in stance phase, L foot excessive pronation during stance phase, compensatory R hip hike to clear leg through swing phase PT-OP-L Special Tests Start: 09/06/24 15:07 Freq: Status: Active Protocol: Document 09/06/24 13:45 LFG (Rec: 09/06/24 15:15 LFG [id number]) Special Tests Hip Special Tests Derrick Test Results negative bilaterally Comments R rectus femoris tighter than L Knee Special Tests Anterior Draw Test Results negative Comments slight give bilaterally, possible laxity PT-OP-M Strength Start: 09/06/24 13:00 Freq: Status: Active Protocol: Document 09/06/24 13:45 LFG (Rec: 09/06/24 15:07 LFG [id number]) Hip Strength Hip Manual Muscle Testing Left Flexion (L2) 4- Good- Abduction 4 Good Adduction 3+ Fair+ External Rotation 4- Good- Internal Rotation 4 Good Right Flexion (L2) 4- Good- Abduction 4 Good Adduction 4 Good External Rotation 4- Good- Internal Rotation 4 Good Knee Strength Knee Manual Muscle Testing Left Flexion (S2) 4+ Good+ Extension (L3) 4+ Good+ Right Flexion (S2) 4+ Good+ Extension (L3) 3+ Fair+ Ankle/Foot Strength Ankle and Foot Manual Muscle Testing Left Dorsiflexion (L4) 4+ Good+ Plantarflexion (S1) 4+ Good+ Right Dorsiflexion (L4) 4+ Good+ Plantarflexion (S1) 4+ Good+ PT-OP-Q Treatments Start: 09/06/24 13:00 Freq: Status: Active Protocol: Document 11/01/24 15:23 AB (Rec: 11/01/24 16:12 AB [id number]) Therapeutic Exercises Supine Exercises piriformis stretch Supine Exercise Name HEP Side right Reps/Minutes 60 sec X 2 Comments verbal cues and tactile cues Mod Derrick stretch Supine Exercise Name HEP Reps/Minutes X 1 X 60 sec each LE AROM knee flex X 10 Comments Verbal cues Sidelying Exercises Reverse clamshell Sidelying Exercise reverse clamshells HEP Name Side right Resistance AROM Equipment Used level 2 Reps/Minutes 15x each band X 15 post manual Comments cues for maintaining knees together Standing Exercises glute med isometric Standing Exercise HEP Name Reps/Minutes one minute each LE Comments Verbal cues Gait Training Gait Activity Dynamic gait Description Forward, Backward walking Comments 1. Metronome: Fwd 101, bwd 83 bpm cued arm swing 2. Fwd walking head turns Manual Therapy Treatment Consent Patient gave verbal Yes consent for manual treatment Soft Tissue Mobilization R glute/piriformis area Mobilization Type Cross-Friction,Rolling Intensity/Depth Moderate Body Position Sidelying R knee Body Location mid quad area of inc density dec mobility Mobilization Type Cross-Friction,Rolling Intensity/Depth Moderate Body Position Hooklying Comments and superficial PT-OP-T Assessment and Plan Start: 09/06/24 13:00 Freq: Status: Active Protocol: Document 11/01/24 15:23 AB (Rec: 11/01/24 16:12 AB [id number]) Physical Therapy Assessment Goals Three Impairment Pt has previous HEP(s) from both PT in [place] and [place] since last fall Short Term Goal (STG Pt will narrow down their most relevant and appropriate ) exercises into a new and updated HEP STG Duration 10/27/24 Two Impairment Pt demonstrating 10x 30sec sit to stand with constant bilateral UE help Detention Goal (LTG) Pt will improve 30 sec sit to stand to 12x w/ no UE help 09/26/24: 11 reps in 30 sec, light contact chair for bal support. LTG Duration 11/06/24 One Impairment Pt currently demonstrating 3+/5 MMT right quad Detention Goal (LTG) Pt to improve right quad strength to a 4+/5 to improve sit to stand, squat, and gait activity tolerance LTG Duration 11/06/24 Assessment Summary Assessment Patient reports having no pain during gait activity performed post manual and stretching exercises. Physical Therapy Plan Frequency and Duration Frequency of 2x/Week Treatment Plan of Care Start 09/06/24 Date Plan of Care End 11/15/24 Date Next Visit Focus/Plan Next Note Type Treatment Note Next Visit Plan Recheck HEP, continue use metronome for improve R knee mechanics walking. POC: recheck prone quad stretch on yoga mat/floor. ideas functional AROM/strengthening activities: stool knee flex/ext walking, standing resisted walk fwd/bwd ( sport cord). POC: Quad strengthening, balance, and gait training
--- NOTE | 2024-11-03 12:32 | PT.OTN ---
Current Diagnoses Other symptoms and signs involving the musculoskeletal system (11/03/24) Physical Therapy Treatment Note PT-OP-A Visit Information Start: 09/06/24 13:00 Freq: Status: Active Protocol: Document 11/03/24 11:25 AB (Rec: 11/03/24 12:32 AB [id number]) Out-Patient Physical Therapy Visit Information Visit Information Visit Type Treatment Note Visit Note Access Code: [email or web address] Visit Start Time 11:33 Visit Stop Time 12:18 Visit Number 13 Number of WELDER PLASMA ARC Visits 2 PT-OP-B Current Condition Start: 09/06/24 13:00 Freq: Status: Active Protocol: Document 09/06/24 13:45 LFG (Rec: 09/06/24 15:07 LFG [id number]) Current Condition History of Current Condition History of Current Pt is a 74 year old female returning to physical Condition therapy with complaints of R leg weakness, stiffness and loss of sensation from her inner thigh all the way down to her ankle. 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 DC from PT on 01/21/24. She comes in today with a cane but says she only occasionally actually needs it. While in [place] she was attending physical therapy and also mentions one of the therapists suspects she might have an ACL tear but hasn't had any imaging done. She reports that she is still gardening and doing light/easy hikes with her friend but she has trouble squatting down. She also mentions that she is doing water aerobics/activities such as walking in the water which can challenges her balance. Treatment Goals Patient/Caregiver Goals are to go back to normal person walking the way Goals she did before without a limp. She also states that she would like to go back to hiking as at the moment she has only been able to do small/light hikes Prior Functional Status Baseline Function- Independent ADL's Baseline Function- Independent Mobility PT-OP-C Subjective Start: 09/06/24 13:00 Freq: Status: Active Protocol: Document 11/03/24 11:25 AB (Rec: 11/03/24 12:32 AB [id number]) OP-PT Subjective Patient Comments Patient Comments Patient into session with out device, with slightly less R knee hyper extension compared to start of previous session. Patient into session with kinesotape ( reports from massage therapist ) on R knee reporting having no pain start of session. PT-OP-D Balance Start: 09/06/24 13:00 Freq: Status: Active Protocol: Document 09/06/24 13:45 LFG (Rec: 09/06/24 15:07 LFG [id number]) Balance Tests Single Limb Standing Single Limb- Right 1 sec before losing balance Single Limb- Left able to hold for about 15 sec w/ swaying, wobbling, and frequent UE help PT-OP-E Functional Tests Start: 09/06/24 13:00 Freq: Status: Active Protocol: Document 09/06/24 13:45 LFG (Rec: 09/06/24 15:15 LFG [id number]) Functional Tests 30 Second Sit to Stand Test Score 10x Comments bilateral UE help PT-OP-G Mobility & Gait Start: 09/06/24 15:07 Freq: Status: Active Protocol: Document 09/06/24 13:45 LFG (Rec: 09/06/24 15:15 LFG [id number]) OP Gait Assessment Gait Gait Assistance Independent Required: Able to Maintain Yes Weight Bearing Status During Gait Comments Gait Comments R foot slightly externally rotated in stance phase, L foot excessive pronation during stance phase, compensatory R hip hike to clear leg through swing phase PT-OP-L Special Tests Start: 09/06/24 15:07 Freq: Status: Active Protocol: Document 09/06/24 13:45 LFG (Rec: 09/06/24 15:15 LFG [id number]) Special Tests Hip Special Tests Derrick Test Results negative bilaterally Comments R rectus femoris tighter than L Knee Special Tests Anterior Draw Test Results negative Comments slight give bilaterally, possible laxity PT-OP-M Strength Start: 09/06/24 13:00 Freq: Status: Active Protocol: Document 09/06/24 13:45 LFG (Rec: 09/06/24 15:07 LFG [id number]) Hip Strength Hip Manual Muscle Testing Left Flexion (L2) 4- Good- Abduction 4 Good Adduction 3+ Fair+ External Rotation 4- Good- Internal Rotation 4 Good Right Flexion (L2) 4- Good- Abduction 4 Good Adduction 4 Good External Rotation 4- Good- Internal Rotation 4 Good Knee Strength Knee Manual Muscle Testing Left Flexion (S2) 4+ Good+ Extension (L3) 4+ Good+ Right Flexion (S2) 4+ Good+ Extension (L3) 3+ Fair+ Ankle/Foot Strength Ankle and Foot Manual Muscle Testing Left Dorsiflexion (L4) 4+ Good+ Plantarflexion (S1) 4+ Good+ Right Dorsiflexion (L4) 4+ Good+ Plantarflexion (S1) 4+ Good+ PT-OP-Q Treatments Start: 09/06/24 13:00 Freq: Status: Active Protocol: Document 11/03/24 11:25 AB (Rec: 11/03/24 12:32 AB [id number]) Therapeutic Exercises Supine Exercises piriformis stretch Supine Exercise Name HEP Side right Reps/Minutes 60 sec X 2 Comments verbal cues and tactile cues repeated Mod Derrick stretch Supine Exercise Name HEP Reps/Minutes X 2 X 60 sec each LE AROM knee flex X 10 Comments Verbal cues repeated and tactile cues Sidelying Exercises Reverse clamshell Sidelying Exercise reverse clamshells HEP Back to wall Name Side bilateral Resistance AROM Equipment Used level 2 Reps/Minutes [id number] Comments cues for maintaining knees together and lower LE only Clamshells Sidelying Exercise HEP Review Back to wall Name Side right Resistance TBlevel 2 then level 3 band Reps/Minutes X 15 each band Comments VC move knee only not entire LE Standing Exercises calf stretch Standing Exercise on LETI Name Side bilateral Reps/Minutes 60 sec gastroc Comments verbal cues glute med isometric Standing Exercise HEP Name Reps/Minutes one minute each LE Comments Verbal cues Gait Training Gait Activity Dynamic gait Description Forward, Backward walking Comments fwd with head turns Manual Therapy Treatment Consent Patient gave verbal Yes consent for manual treatment Soft Tissue Mobilization R knee Body Location mid quad area of inc density dec mobility Mobilization Type Cross-Friction,Rolling Intensity/Depth Moderate Body Position Hooklying Comments and superficial PT-OP-T Assessment and Plan Start: 09/06/24 13:00 Freq: Status: Active Protocol: Document 11/03/24 11:25 AB (Rec: 11/03/24 12:32 AB [id number]) Physical Therapy Assessment Goals Three Impairment Pt has previous HEP(s) from both PT in [place] and [place] since last fall Short Term Goal (STG Pt will narrow down their most relevant and appropriate ) exercises into a new and updated HEP STG Duration 10/27/24 Two Impairment Pt demonstrating 10x 30sec sit to stand with constant bilateral UE help Torpedo Shooter Goal (LTG) Pt will improve 30 sec sit to stand to 12x w/ no UE help 09/26/24: 11 reps in 30 sec, light contact chair for bal support. LTG Duration 11/06/24 One Impairment Pt currently demonstrating 3+/5 MMT right quad Torpedo Shooter Goal (LTG) Pt to improve right quad strength to a 4+/5 to improve sit to stand, squat, and gait activity tolerance LTG Duration 11/06/24 Assessment Summary Assessment Patient continues to require increased cues to perform HEP exercises correctly. Noted inc hip ER, dec DF terminal stance; patient may benefit from calf stretch to HEP post able to perform current HEP with decrease cues.
--- NOTE | 2024-11-13 10:37 | PT-OP ANOTE ---
Spoke with pt due to recent cancellation. Pt reports that she had a recent flare-up of knee swelling, had difficulty bearing weight through her leg. Reports that over a few days, she had a massage therapy appointment, PT, walked [place] multiple [place] around [place] [employer] [place], and then spent a few hours squatting down/sitting on a bucket during gardening. Has been very sore ever since, scheduled to get in to Ortho for follow-up on 11/17. Will call PT clinic back following Ortho appointment to discuss plan going forward.
--- NOTE | 2024-11-28 12:47 | PT-OP ANOTE ---
Returned pt's call to clinic. Pt reports she's has been seen by Ortho, had 38 mL of blood drained from her knee, then was instructed to take it easy. Able to walk and bear weight through her leg now, but notes continued swelling. Trying to be nice to it, but now worried that she is not doing enough. Discussed pt phoning Ortho to get instruction on level of activity going forward, pt in agreement with this plan.
--- NOTE | 2024-11-30 15:09 | PT.OPPOC ---
Physical, Occupational & Speech Therapy At [facility] Current Diagnoses Other symptoms and signs involving the musculoskeletal system (11/30/24) Visit Care Team Role Provider Type Cristino Mccann MD Attending Provider Non-Staff Family Provider Primary Care Provider Referring Provider Specialty: Family Practice Address: [facility] [id number], [place], [address] Email: Plan Of Care PT-OP-A Visit Information Start: 09/06/24 13:00 Freq: Status: Active Protocol: Document 11/30/24 13:45 DCW (Rec: 11/30/24 15:08 DCW [id number]) Out-Patient Physical Therapy Visit Information Visit Information Visit Type Progress Note Visit Start Time 13:45 Visit Stop Time 14:30 Visit Number 14 Number of BELT DRESSER Visits 0 Progress Note Due 12/30/24 Evaluation Information Evaluation Date 09/06/24 PT-OP-B Current Condition Start: 09/06/24 13:00 Freq: Status: Active Protocol: Document 09/06/24 13:45 LFG (Rec: 09/06/24 15:07 LFG [id number]) Current Condition History of Current Condition History of Current Pt is a 74 year old female returning to physical Condition therapy with complaints of R leg weakness, stiffness and loss of sensation from her inner thigh all the way down to her ankle. 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 DC from PT on 01/21/24. She comes in today with a cane but says she only occasionally actually needs it. While in [place] she was attending physical therapy and also mentions one of the therapists suspects she might have an ACL tear but hasn't had any imaging done. She reports that she is still gardening and doing light/easy hikes with her friend but she has trouble squatting down. She also mentions that she is doing water aerobics/activities such as walking in the water which can challenges her balance. Treatment Goals Patient/Caregiver Goals are to go back to normal person walking the way Goals she did before without a limp. She also states that she would like to go back to hiking as at the moment she has only been able to do small/light hikes Prior Functional Status Baseline Function- Independent ADL's Baseline Function- Independent Mobility PT-OP-C Subjective Start: 09/06/24 13:00 Freq: Status: Active Protocol: Document 11/30/24 13:45 DCW (Rec: 11/30/24 15:08 DCW [id number]) OP-PT Subjective Patient Comments Patient Comments Pt returns following an extended absence from PT following a decline in function secondary to a left knee flare-up of her injury. Has increased swelling, pain, and stiffness, was recently seen at ortho, had 37 mL of blood drained from her knee, was cleared for return to PT. PT-OP-D Balance Start: 09/06/24 13:00 Freq: Status: Active Protocol: Document 11/30/24 13:45 DCW (Rec: 11/30/24 13:59 DCW [id number]) Balance Tests Single Limb Standing Single Limb- Right able to hold 4 sec /c swaying, wobbling Single Limb- Left able to hold 5 sec /c swaying, wobbling PT-OP-E Functional Tests Start: 09/06/24 13:00 Freq: Status: Active Protocol: Document 11/30/24 13:45 DCW (Rec: 11/30/24 13:59 DCW [id number]) Functional Tests 30 Second Sit to Stand Test Score x12 repetitions Comments UE push from thighs PT-OP-G Mobility & Gait Start: 09/06/24 15:07 Freq: Status: Active Protocol: Document 11/30/24 13:45 DCW (Rec: 11/30/24 13:59 DCW [id number]) OP Gait Assessment Gait Gait Assistance Independent Required: Assistive Devices Assistive Device Straight Cane Comments Gait Comments R foot slightly externally rotated in stance phase, compensatory R hip hike to clear leg through swing phase PT-OP-L Special Tests Start: 09/06/24 15:07 Freq: Status: Active Protocol: Document 09/06/24 13:45 LFG (Rec: 09/06/24 15:15 LFG [id number]) Special Tests Hip Special Tests Derrick Test Results negative bilaterally Comments R rectus femoris tighter than L Knee Special Tests Anterior Draw Test Results negative Comments slight give bilaterally, possible laxity PT-OP-M Strength Start: 09/06/24 13:00 Freq: Status: Active Protocol: Document 11/30/24 13:45 DCW (Rec: 11/30/24 13:59 DCW [id number]) Hip Strength Hip Manual Muscle Testing Left Flexion (L2) 4+ Good+ Abduction 4+ Good+ Adduction 5 Normal External Rotation 4+ Good+ Internal Rotation 4+ Good+ Right Flexion (L2) 4- Good- Abduction 4 Good Adduction 5 Normal External Rotation 4- Good- Internal Rotation 4+ Good+ Knee Strength Knee Manual Muscle Testing Left Flexion (S2) 4+ Good+ Extension (L3) 4+ Good+ Right Flexion (S2) 4- Good- Extension (L3) 3+ Fair+ PT-OP-Q Treatments Start: 09/06/24 13:00 Freq: Status: Active Protocol: Document 11/30/24 13:45 DCW (Rec: 11/30/24 15:08 [facility] [id number]) Gym Equipment Shuttle Recovery Bilateral Squats Details Focus on end-range extension Resistance 87# (three navy) Shuttle Recovery Stable Platform Reps/Time x20 Unilateral Squats Details Focus on end-range extension Resistance 50# (two navy) Therapeutic Exercises Sitting Exercises Hamstring Curls Sitting Exercise Hamstring Curls Name Side bilateral Resistance Lv 3 LAQ Sitting Exercise VCs for quad set, hold Name Side bilateral Resistance 4# Reps/Minutes x10 reps, 3 hold PT-OP-T Assessment and Plan Start: 09/06/24 13:00 Freq: Status: Active Protocol: Document 11/30/24 13:45 DCW (Rec: 11/30/24 15:08 [facility] [id number]) Physical Therapy Assessment Goals Three Impairment Pt has previous HEP(s) from both PT in [place] and [place] since last fall Detention Goal (LTG) Pt will narrow down their most relevant and appropriate exercises into a new and updated HEP LTG Duration 02/28/25 Two Impairment Pt demonstrating 10x 30sec sit to stand with constant bilateral UE help Outdoor Pursuits Instructor Goal (LTG) Pt will improve 30 sec sit to stand to 12x w/ no UE help 09/26/24: 11 reps in 30 sec, light contact chair for bal support. LTG Duration 02/28/25 One Impairment Pt currently demonstrating 3+/5 MMT right quad Detention Goal (LTG) Pt to improve right quad strength to a 4+/5 to improve sit to stand, squat, and gait activity tolerance LTG Duration 02/28/25 Assessment Summary Assessment Pt had a bit of a setback recently with overworking her right knee, causing increased swelling, pain, and stiffness, which has unfortunately negatively impacted her overall recovery, however pt still doing well with testing today. Showing some slight improvements in 30sStS, right leg SLS, and general strengthening, however feeling much less knee stability and increased fear of falling during gait. Pt will likely benefit from continued focus on activity tolerance, functional mobility, strengthening, gait training, balance, and joint stabilization. Physical Therapy Plan Frequency and Duration Frequency of 2x/Week Treatment Plan of Care Start 11/30/24 Date Plan of Care End 02/28/25 Date Therapeutic Interventions Therapeutic Balance Training,Gait Training,Home Exercise Program, Interventions Manual Therapy,Neuromuscular Re-education,Patient/ Caregiver Education,Self-Care/Home Management,Soft Tissue Mobilization,Therapeutic Activities,Therapeutic Exercises Modalities Electric Stimulation Next Visit Focus/Plan Next Note Type Treatment Note Next Visit Plan Recheck HEP, continue use metronome for improve R knee mechanics walking. POC: recheck prone quad stretch on yoga mat/floor. ideas functional AROM/strengthening activities: stool knee flex/ext walking, standing resisted walk fwd/bwd ( sport cord). POC: Quad strengthening, balance, and gait training Plan of Care Dates Plan of Care Start Date 11/30/24 Plan of Care End Date 02/28/25 Electronically Signed by: Romain Zuñiga, PT 11/30/24 3048 If you are in agreement with this Plan of Care, please return a signed and dated copy. I have reviewed this Plan of Care and certify that the skilled therapy services above are required to meet the patient?s needs. Physician Signature Date Printed Name and Credentials Clinical Instructor Signature Printed Name and Credentials
--- NOTE | 2024-12-05 15:28 | PT.OTN ---
Current Diagnoses Other symptoms and signs involving the musculoskeletal system (12/05/24) Physical Therapy Treatment Note PT OP: Lower Back/Lower Extremity Start: 12/05/24 13:49 Freq: Status: Active Protocol: Document 12/05/24 13:49 AB (Rec: 12/05/24 15:27 AB [id number]) Out-Patient Physical Therapy Visit Information Visit Information Visit Type Treatment Note Visit Note Access Code: [email or web address] Visit Start Time 13:49 Visit Stop Time 14:33 Visit Number 15 Number of RANGE TECHNICIAN Visits 1 Progress Note Due 12/30/24 OP-PT Subjective Patient Comments Patient Comments Patient reports having no pain start of session. Patient reports performing step ups at home. Patient requests copy of HEP handouts. Therapeutic Exercises Supine Exercises piriformis stretch Supine Exercise Name HEP knee to opp shoulder and fig 4 Side right Reps/Minutes 60 sec X each stretch Comments verbal cues and tactile cues repeated Mod Derrick stretch Supine Exercise Name HEP Reps/Minutes X 2 X 60 sec each LE AROM knee flex X 10 Comments Verbal cues repeated and tactile cues Sidelying Exercises Hip abduction Reps/Minutes X 15 Comments verbal and tactile cues for trunk position Reverse clamshell Sidelying Exercise reverse clamshells Name Side bilateral Resistance AROM Reps/Minutes X15 Comments VC to perform slowly Clamshells Sidelying Exercise HEP Review Name Side right Reps/Minutes X 15 each band Comments review for form without band this session Sitting Exercises LAQ Sitting Exercise VCs for quad set, hold Name Side bilateral Resistance 4# Reps/Minutes x10 reps with level 2 band R LE and X 15with 4 # B Standing Exercises glute med isometric Standing Exercise HEP Name Reps/Minutes one minute each LE Comments Verbal cues Bilateral heel raise Standing Exercise HEP Name Side bilateral Reps/Minutes X 15 Comments VC to lower heels slowly, pt ed rationale of lower slowly for control [facility] Physical Therapy Assessment Goals Three Impairment Pt has previous HEP(s) from both PT in [place] and [place] since last fall Business Solutions Architect Goal (LTG) Pt will narrow down their most relevant and appropriate exercises into a new and updated HEP LTG Duration 02/28/25 Two Impairment Pt demonstrating 10x 30sec sit to stand with constant bilateral UE help Jail Goal (LTG) Pt will improve 30 sec sit to stand to 12x w/ no UE help 09/26/24: 11 reps in 30 sec, light contact chair for bal support. LTG Duration 02/28/25 One Impairment Pt currently demonstrating 3+/5 MMT right quad Business Solutions Architect Goal (LTG) Pt to improve right quad strength to a 4+/5 to improve sit to stand, squat, and gait activity tolerance LTG Duration 02/28/25 Assessment Summary Assessment Patient into session with reports of only performing LAQ at home. HEP review for all but side stepping with band and prone quad stretch this session. Patient ed importance of improved hip strength to dec lat/med forces on knee during functional mobility. Physical Therapy Plan Frequency and Duration Frequency of 2x/Week Treatment Plan of Care Start 11/30/24 Date Plan of Care End 02/28/25 Date Next Visit Focus/Plan Next Note Type Treatment Note Next Visit Plan Recheck HEP/ review sidelying hip with band ex, continue use metronome for improve R knee mechanics walking. POC: recheck prone quad stretch on yoga mat/floor. ideas functional AROM/strengthening activities: stool knee flex/ext walking, standing resisted walk fwd/bwd ( sport cord). POC: Quad strengthening, balance, and gait training
--- NOTE | 2024-12-14 16:53 | PT.OTN ---
Current Diagnoses Other symptoms and signs involving the musculoskeletal system (12/14/24) Physical Therapy Treatment Note PT OP: Lower Back/Lower Extremity Start: 12/05/24 13:49 Freq: Status: Active Protocol: Document 12/14/24 16:10 DCW (Rec: 12/14/24 16:53 DCW [id number]) Out-Patient Physical Therapy Visit Information Visit Information Visit Type Treatment Note Visit Note Access Code: [email or web address] Visit Start Time 16:10 Visit Stop Time 16:55 Visit Number 16 Number of CONTROL INSPECTOR Visits 0 Progress Note Due 12/30/24 Evaluation Information Evaluation Date 09/06/24 Gym Equipment Shuttle Recovery Bilateral Squats Details Focus on end-range extension Resistance 87# Shuttle Recovery Stable Platform Reps/Time x20 Unilateral Squats Details Focus on end-range extension Resistance 50# Therapeutic Exercises Sitting Exercises Hamstring Curls Sitting Exercise Hamstring Curls Name Side bilateral Resistance Lv 3 LAQ Sitting Exercise VCs for quad set, hold Name Side bilateral Resistance 5# Reps/Minutes x10 reps, 3 hold Standing Exercises calf stretch Standing Exercise gastroc, soleus Name Side bilateral Equipment Used LETI Reps/Minutes 2x60 Comments verbal cues Neuro Re-Education Treatment Balance Activities BOSU Lung Details [facility] Physical Therapy Assessment Impairments Impairments Activity Tolerance,Balance,Functional Activities, Functional Mobility,Gait,Sensation,Strength Goals Three Impairment Pt has previous HEP(s) from both PT in [place] and [place] since last fall Flight Purser Goal (LTG) Pt will narrow down their most relevant and appropriate exercises into a new and updated HEP LTG Duration 02/28/25 Two Impairment Pt demonstrating 10x 30sec sit to stand with constant bilateral UE help Snf Goal (LTG) Pt will improve 30 sec sit to stand to 12x w/ no UE help 09/26/24: 11 reps in 30 sec, light contact chair for bal support. LTG Duration 02/28/25 One Impairment Pt currently demonstrating 3+/5 MMT right quad Snf Goal (LTG) Pt to improve right quad strength to a 4+/5 to improve sit to stand, squat, and gait activity tolerance LTG Duration 02/28/25 Assessment Summary Assessment Pt showing much less edema in her knee currently, however pt admits now, despite there being no pain, her knee feels much less stable. Continuing to focus on improving strength and stability of knee and quad, as well as improving mobility and gait. Physical Therapy Plan Frequency and Duration Frequency of 2x/Week Treatment Plan of Care Start 11/30/24 Date Plan of Care End 02/28/25 Date Therapeutic Interventions Therapeutic Balance Training,Gait Training,Home Exercise Program, Interventions Manual Therapy,Neuromuscular Re-education,Patient/ Caregiver Education,Self-Care/Home Management,Soft Tissue Mobilization,Therapeutic Activities,Therapeutic Exercises Modalities Electric Stimulation Next Visit Focus/Plan Next Note Type Treatment Note Next Visit Plan Recheck HEP/ review sidelying hip with band ex, continue use metronome for improve R knee mechanics walking. POC: recheck prone quad stretch on yoga mat/floor. ideas functional AROM/strengthening activities: stool knee flex/ext walking, standing resisted walk fwd/bwd ( sport cord). POC: Quad strengthening, balance, and gait training
--- NOTE | 2024-12-18 11:28 | PT.OTN ---
Current Diagnoses Other symptoms and signs involving the musculoskeletal system (12/18/24) Physical Therapy Treatment Note PT OP: Lower Back/Lower Extremity Start: 12/05/24 13:49 Freq: Status: Active Protocol: Document 12/18/24 10:49 SP (Rec: 12/18/24 11:34 SP [id number]) Out-Patient Physical Therapy Visit Information Visit Information Visit Type Treatment Note Visit Note GAMALIEL Lombardi assisted patient with stability via gait belt during dynamic gait activity with pt permission while under direct instruction of JETT Harry. Visit Start Time 10:48 Visit Stop Time 11:28 Visit Number 17 Number of ADMIRALTY LAWYER Visits 0 Progress Note Due 12/30/24 OP-PT Subjective Patient Comments Patient Comments Pt arrives using SPC. Last visit did not use knee brace , felt unstable. Wearing brace today and with most activities. Pt reports no pn prior to tx. Gym Equipment Shuttle Recovery Bilateral Squats Details Focus on end-range extension Resistance 75# with L2 band at knees Shuttle Recovery Stable Platform Reps/Time x20 Unilateral Squats Details Focus on end-range extension, LE alignment Resistance 37# Reps/Time 2x20 each Gait Training Gait Activity Dynamic gait Description Forward 86>90bpm Device Used none Level of Assistance CGA Surface tile Comments with head turns, cued arm swing Neuro Re-Education Treatment Balance Activities step up/back down Surface stand on foarm on floor, foam on top 6step step taps Details step taps Surface 2 foam on floor and on top of 6 step Equipment 4# Jonas, 6 step, 2 foam pads, ll bars, gb for safety Reps/Duration x 10 alternating each side fw, x5 each side on bw Comments No use of UE on bars, CGA to SBA for safety, vc for go slow, posture, hands at gb. Slight LOB on bw step down hurdles Details hurdles in ll bars wtih CGA to SBA Surface level Equipment ll bars, 4# Jonas, gb for safety Reps/Duration 6 hurdles x 3 laps forward, x 3 laps side stepping Comments vc for core activation, reciprocol gait, posture and shoulder retraction, drecreasing bar use for UE. No UE bar support needed for side stepping (add foam next visit). Physical Therapy Assessment Goals Three Impairment Pt has previous HEP(s) from both PT in [place] and [place] since last fall Long-Term Goal (LTG) Pt will narrow down their most relevant and appropriate exercises into a new and updated HEP LTG Duration 02/28/25 Two Impairment Pt demonstrating 10x 30sec sit to stand with constant bilateral UE help Long-Term Goal (LTG) Pt will improve 30 sec sit to stand to 12x w/ no UE help 09/26/24: 11 reps in 30 sec, light contact chair for bal support. LTG Duration 02/28/25 One Impairment Pt currently demonstrating 3+/5 MMT right quad Long-Term Goal (LTG) Pt to improve right quad strength to a 4+/5 to improve sit to stand, squat, and gait activity tolerance LTG Duration 02/28/25 Assessment Summary Assessment Pt showed good effort during resisted strengthening activities and incorporated a balance component to support midline corrections. ADMIRALTY LAWYER and SPT[employer] provided cuing for posture, core and glut engagement with encouragement and able to lessen UE support for progression in balance recovery/stability to be able to return to more advanced community navigation. Physical Therapy Plan Frequency and Duration Frequency of 2x/Week Treatment Plan of Care Start 11/30/24 Date Plan of Care End 02/28/25 Date Therapeutic Interventions Therapeutic Balance Training,Gait Training,Home Exercise Program, Interventions Manual Therapy,Neuromuscular Re-education,Patient/ Caregiver Education,Self-Care/Home Management,Soft Tissue Mobilization,Therapeutic Activities,Therapeutic Exercises Modalities Electric Stimulation Next Visit Focus/Plan Next Note Type Treatment Note Next Visit Plan Recheck HEP/ review sidelying hip with band ex, continue use metronome for improve R knee mechanics walking. POC: recheck prone quad stretch on yoga mat/floor. ideas functional AROM/strengthening activities: stool knee flex/ext walking, standing resisted walk fwd/bwd ( sport cord). POC: Quad strengthening, balance, and gait training
--- NOTE | 2024-12-20 15:16 | PT.OTN ---
Current Diagnoses Other symptoms and signs involving the musculoskeletal system (12/20/24) Physical Therapy Treatment Note PT OP: Lower Back/Lower Extremity Start: 12/05/24 13:49 Freq: Status: Active Protocol: Document 12/20/24 14:34 SP (Rec: 12/20/24 15:23 SP [id number]) Out-Patient Physical Therapy Visit Information Visit Information Visit Type Treatment Note Visit Note GAMALIEL Lombardi assisted patient with stability via gait belt during dynamic gait activity with pt permission while under direct instruction of JETT Harry. Visit Start Time 14:34 Visit Stop Time 15:16 Visit Number 18 Number of COMMUNITY SERVICE COORDINATOR Visits 1 Progress Note Due 12/30/24 Evaluation Information Evaluation Date 09/06/24 Precautions Precautions Impression R knee MRI: 1. Tear of the medial meniscus with marked extrusion of the medial meniscus body. 2. Focal full-thickness tear of the proximal MCL without ligament retraction. 3. 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 4. Large knee effusion. Moderate sized, partially ruptured popliteal cyst. 1.0 cm ossified body in the intercondylar notch. OP-PT Subjective Patient Comments Patient Comments Pt reported she found did little more activitiy than used but thinks it made her feel stronger. She is compliant with with HEP and out picking flower outside but not squatting but on uneven ground. Cardio Equipment Recumbent Bicycle Duration (Minutes) 6 Resistance 6 Seat Position 5 Other 45 RPMs Therapeutic Activity Therapeutic Activity squat mechanics for gardening Name squat with cross body ball transfer R<>L 12cones & pods & 1 reps from floor Reps/Minutes 20 ft x3 laps fwd and lateral stepping hurdles Comments cues for hip hinge and even body weight but allow wt shift needed reach ball closer to floor on cone or pod while standing on floor and progressed to on mat for uneven surface to assimulate return to activity of picking up deadheaded ascencio on the ground that she picked off her bushes. Gait Training Gait Activity Dynamic gait Description Forward 90> 101bpm, with head turns 90 bpm, backward stepping 88bpm Device Used none Level of Assistance CGA Surface tile Comments cued arm swing, listen and focus on metronome, narrowing RAQUEL decreased lateral trunk wt shifting and knee flexion mechanics improvement noted. Physical Therapy Assessment Goals Three Impairment Pt has previous HEP(s) from both PT in [place] and [place] since last fall Detention Goal (LTG) Pt will narrow down their most relevant and appropriate exercises into a new and updated HEP LTG Duration 02/28/25 Two Impairment Pt demonstrating 10x 30sec sit to stand with constant bilateral UE help Detention Goal (LTG) Pt will improve 30 sec sit to stand to 12x w/ no UE help 09/26/24: 11 reps in 30 sec, light contact chair for bal support. LTG Duration 02/28/25 One Impairment Pt currently demonstrating 3+/5 MMT right quad Bar Finish Operator Goal (LTG) Pt to improve right quad strength to a 4+/5 to improve sit to stand, squat, and gait activity tolerance LTG Duration 02/28/25 Assessment Summary Assessment Pt improved squating body mechanics activity to support balance and AROM of BLEs with cues for proper form even BLE WB RAQUEL for progression return picking up the pile of deadheaded ascencio from her bushes and throwing them in compost bin of which her is currently doing. COMMUNITY SERVICE COORDINATOR provided CGA during uneven surface squatting and jeni stepping due to more challenging progression not ready to do at home. She was able to progress pacing dynamic stepping with use of metronome 100bpm forward, 90 bpm with head turns and 88bpm with backward stepping to increased confidence scanning parkinglot out in the community. She would benefit from curb mgt, decline uneven outdoor gait for strengthening to increase independence for neighborhood walking with more confidence in strength of R knee stability, decreased risk of buckling. Physical Therapy Plan Frequency and Duration Frequency of 2x/Week Treatment Plan of Care Start 11/30/24 Date Plan of Care End 02/28/25 Date Therapeutic Interventions Therapeutic Balance Training,Gait Training,Home Exercise Program, Interventions Manual Therapy,Neuromuscular Re-education,Patient/ Caregiver Education,Self-Care/Home Management,Soft Tissue Mobilization,Therapeutic Activities,Therapeutic Exercises Modalities Electric Stimulation Next Visit Focus/Plan Next Note Type Treatment Note Next Visit Plan Recheck HEP [place] appropriate, decline surfaces, eccentric quad strength, uneven surface outdoor gait, continue use metronome for improve R knee mechanics walking, standing resisted walk fwd/bwd (sport cord). POC: Quad strengthening, balance, and gait training
--- NOTE | 2024-12-25 12:57 | PT.OPPN ---
Current Diagnoses Other symptoms and signs involving the musculoskeletal system (12/25/24) Physical Therapy Progress Note PT OP: Lower Back/Lower Extremity Start: 12/05/24 13:49 Freq: Status: Active Protocol: Document 12/25/24 12:15 DCW (Rec: 12/25/24 12:57 DCW [id number]) Out-Patient Physical Therapy Visit Information Visit Information Visit Type Progress Note Visit Start Time 12:15 Visit Stop Time 13:00 Visit Number 19 Number of COAT TAILOR Visits 0 Progress Note Due 01/24/25 Evaluation Information Evaluation Date 09/06/24 Precautions Precautions Impression R knee MRI: 1. Tear of the medial meniscus with marked extrusion of the medial meniscus body. 2. Focal full-thickness tear of the proximal MCL without ligament retraction. 3. 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 4. Large knee effusion. Moderate sized, partially ruptured popliteal cyst. 1.0 cm ossified body in the intercondylar notch. OP-PT Subjective Patient Comments Patient Comments Pt reports she has been feeling stronger over the past few sessions. Gym Equipment Shuttle Recovery Bilateral Squats Details Focus on end-range extension Resistance 75# Shuttle Recovery Stable Platform Reps/Time x20 Unilateral Squats Details Focus on end-range extension, LE alignment Resistance 37# Reps/Time 2x20 each Shuttle Balance Red Details WBOS, Staggered, Lateral weight shift Therapeutic Exercises Other Exercises Sliders Other Exercise Name Foot on furniture slider - Abduction Side bilateral Neuro Re-Education Treatment Balance Activities step up/back down Details Step-ups Surface 5 step Equipment // bars, 4# Jonas step taps Details step taps Surface 2 foam on floor and under cones Equipment 4# Jonas, cones, 2 foam pads, // bars Reps/Duration x 10 alternating each side Comments Limited UE support SLS Details SLS Surface AirEx Equipment // bars Tandem Details Tandem Stance Surface AirEx Equipment // bars Physical Therapy Assessment Impairments Impairments Activity Tolerance,Balance,Functional Activities, Functional Mobility,Gait,Sensation,Strength Goals Three Impairment Pt has previous HEP(s) from both PT in [place] and [place] since last fall Welding Machine Operator Thermit Goal (LTG) Pt will narrow down their most relevant and appropriate exercises into a new and updated HEP LTG Duration 02/28/25 Two Impairment Pt demonstrating 10x 30sec sit to stand with constant bilateral UE help Welding Machine Operator Thermit Goal (LTG) Pt will improve 30 sec sit to stand to 12x w/ no UE help 09/26/24: 11 reps in 30 sec, light contact chair for bal support. 12/25/24: 13 reps, no UE assist LTG Duration Met One Impairment Pt currently demonstrating 3+/5 MMT right quad Retirement Goal (LTG) Pt to improve right quad strength to a 4+/5 to improve sit to stand, squat, and gait activity tolerance LTG Duration 02/28/25 Assessment Summary Assessment Pt doing well, met 30sStS goal, progressing well with strength, activity tolerance, and balance. Continue skilled therapy to improve quad strength and improve functional mobility. Physical Therapy Plan Frequency and Duration Frequency of 2x/Week Treatment Plan of Care Start 11/30/24 Date Plan of Care End 02/28/25 Date Therapeutic Interventions Therapeutic Balance Training,Gait Training,Home Exercise Program, Interventions Manual Therapy,Neuromuscular Re-education,Patient/ Caregiver Education,Self-Care/Home Management,Soft Tissue Mobilization,Therapeutic Activities,Therapeutic Exercises Modalities Electric Stimulation Next Visit Focus/Plan Next Note Type Treatment Note Next Visit Plan Recheck HEP [place] appropriate, decline surfaces, eccentric quad strength, uneven surface outdoor gait, continue use metronome for improve R knee mechanics walking, standing resisted walk fwd/bwd (sport cord). POC: Quad strengthening, balance, and gait training
--- NOTE | 2024-12-27 10:38 | PT.OTN ---
Addendum entered and electronically signed by Isaura Malloy 12/27/24 12:37: Error Start time 9:52 Original Note: Current Diagnoses Other symptoms and signs involving the musculoskeletal system (12/27/24) Physical Therapy Treatment Note PT OP: Lower Back/Lower Extremity Start: 12/05/24 13:49 Freq: Status: Active Protocol: Document 12/27/24 09:52 AB (Rec: 12/27/24 10:38 AB [id number]) Out-Patient Physical Therapy Visit Information Visit Information Visit Type Treatment Note Visit Start Time 09:57 Visit Stop Time 10:34 Visit Number 20 Number of HEADLINE WRITER Visits 1 Progress Note Due 01/24/25 Precautions Precautions Impression R knee MRI: 1. Tear of the medial meniscus with marked extrusion of the medial meniscus body. 2. Focal full-thickness tear of the proximal MCL without ligament retraction. 3. 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 4. Large knee effusion. Moderate sized, partially ruptured popliteal cyst. 1.0 cm ossified body in the intercondylar notch. OP-PT Subjective Patient Comments Patient Comments Patient reports she has tailbone pain with sit to and from stand, performs sit to stand with UE use with R knee extended. Patient reports she doesn't have handouts for [employer] HEP, and isn't doing those exercises. SLS 5 sec L LE without UE use. Therapeutic Exercises Supine Exercises piriformis stretch Supine Exercise Name HEP knee to opp shoulder and fig 4 Side right Reps/Minutes 60 sec X stretch Comments verbal cues and tactile cues repeated Mod Derrick stretch Supine Exercise Name HEP Side right Reps/Minutes X 60 sec LE AROM knee flex X 10 Comments Verbal cues repeated and tactile cues Sidelying Exercises Reverse clamshell Sidelying Exercise reverse clamshells Name Side right Resistance level 2 band Reps/Minutes X15 Comments VC to perform slowly Clamshells Sidelying Exercise HEP Review Name Side right Resistance Level2 band Reps/Minutes X 15 each band Comments VC for trunk position Sitting Exercises LAQ Sitting Exercise VCs for quad set, hold Name Side bilateral Resistance 5# Reps/Minutes x15 reps, 3 hold Comments verbal cues to hold Standing Exercises sit to stand Equipment Used X 2 then X 10 X 2 Comments Pt ed mech sit to stand, self tactile cues for hip hinge, for inc R knee fl glute med isometric Standing Exercise HEP Name Reps/Minutes one minute each LE Comments Verbal cues Manual Therapy Treatment Consent Patient gave verbal Yes consent for manual treatment Manual Techniques MET for L AI R PI Body Position 6 X 6 sec each Physical Therapy Assessment Goals Three Impairment Pt has previous HEP(s) from both PT in [place] and [place] since last fall Semiconductor Processing Technician Goal (LTG) Pt will narrow down their most relevant and appropriate exercises into a new and updated HEP LTG Duration 02/28/25 Two Impairment Pt demonstrating 10x 30sec sit to stand with constant bilateral UE help Semiconductor Processing Technician Goal (LTG) Pt will improve 30 sec sit to stand to 12x w/ no UE help 09/26/24: 11 reps in 30 sec, light contact chair for bal support. 12/25/24: 13 reps, no UE assist LTG Duration Met One Impairment Pt currently demonstrating 3+/5 MMT right quad Semiconductor Processing Technician Goal (LTG) Pt to improve right quad strength to a 4+/5 to improve sit to stand, squat, and gait activity tolerance LTG Duration 02/28/25 Assessment Summary Assessment Patient able to perform sit to and from stand with increased hip hinge and reports no pain tail bone during training for sit to and from stand. Physical Therapy Plan Frequency and Duration Frequency of 2x/Week Treatment Plan of Care Start 11/30/24 Date Plan of Care End 02/28/25 Date Next Visit Focus/Plan Next Note Type Treatment Note Next Visit Plan Recheck HEP [place] appropriate ( reports not doing [facility] and doesn't have written HEP), decline surfaces , eccentric quad strength, uneven surface outdoor gait, continue use metronome for improve R knee mechanics walking, standing resisted walk fwd/bwd (sport cord). POC: Quad strengthening, balance, and gait training
--- NOTE | 2024-12-29 15:06 | PT.OTN ---
Current Diagnoses Other symptoms and signs involving the musculoskeletal system (12/29/24) Physical Therapy Treatment Note PT OP: Lower Back/Lower Extremity Start: 12/05/24 13:49 Freq: Status: Active Protocol: Document 12/29/24 11:35 PD (Rec: 12/29/24 12:02 PD [id number]) Out-Patient Physical Therapy Visit Information Visit Information Visit Type Treatment Note Visit Note GAMALIEL Lombardi led tx session with patient consent and direct supervision by JETT Harry. Visit Start Time 11:35 Visit Stop Time 12:15 Visit Number 21 Number of TECHNICAL SYSTEM ANALYST Visits 2 Progress Note Due 01/24/25 Precautions Precautions Impression R knee MRI: 1. Tear of the medial meniscus with marked extrusion of the medial meniscus body. 2. Focal full-thickness tear of the proximal MCL without ligament retraction. 3. 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 4. Large knee effusion. Moderate sized, partially ruptured popliteal cyst. 1.0 cm ossified body in the intercondylar notch. OP-PT Subjective Patient Comments Patient Comments Pt reports doing well, feels like she is getting stronger. At home is doing gardening, she has been walking with SPC on the uneven garden, doing a bit of squatting but being careful not to spend too much time in any one position. Pt is doing step ups on 6 step, about 10 3x per day, doing mini lunges holding counter, squats for gardening and ADLs. Therapeutic Exercises Supine Exercises Mod Derrick stretch Supine Exercise Name Off side of table with opposite knee bent or held (as able) - for HEP Side bilateral Reps/Minutes X 60 sec Comments Verbal cues repeated and tactile cues Sitting Exercises LAQ Sitting Exercise VC and TC for slow eccentric quad action on decent to Name floor Side right Resistance 4# Reps/Minutes 2 x 10 Comments reduced AW to be able to slow down decent for eccentric quad strength. Gait Training Gait Activity Outdoor uneven surfaces Description Outdoors incline/decline, stairs, uneven surfaces, fw/ bw gait Device Used w/ and w/out SPC Level of Assistance SBA Surface Pavement, sidewalk, uneven Distance/Duration 15 minutes at 95-100 steps per minute on metronome Treatment Focus Even fast gait, decreasing side to side movement, using good heal to toe Comments Walked around building and up and down parking lot inclines going fw/bw with voice and tactile cues on backward gait on inclines for safe pace and focus. Pt practices reciprocal UE and LE without use of SPC for 100', then returned to using SPC. Practiced going up and down 6 x 6 stairs using reciprocal gait with verbal cues for SPC placement and railing in opposite hand. Pt able to lead with L foot on step down with safe SPC placement first and focus on eccentric quad activation. Completed 3 cycles of up and down stairs and large loop of parking areas. Pt demonstrated improved gait with a metronome pace of 95-100 bpm. Manual Therapy Treatment Taping Kinesio Taping for edema Comments Discussed and offered. Pt declined due to difficulty with removing slacks today. She will wear loose slacks that can reach above knee next time if she would like to try taping for edema drainage. Physical Therapy Assessment Goals Three Impairment Pt has previous HEP(s) from both PT in [place] and [place] since last fall Residential Goal (LTG) Pt will narrow down their most relevant and appropriate exercises into a new and updated HEP 12/29/24: Pt completing HEP - Pt is doing step ups on 6 step, about 10 3x per day, doing mini lunges holding counter, squats for gardening and ADLs. LTG Duration 02/28/25 Two Impairment Pt demonstrating 10x 30sec sit to stand with constant bilateral UE help Residential Goal (LTG) Pt will improve 30 sec sit to stand to 12x w/ no UE help 09/26/24: 11 reps in 30 sec, light contact chair for bal support. 12/25/24: 13 reps, no UE assist LTG Duration Met One Impairment Pt currently demonstrating 3+/5 MMT right quad Residential Goal (LTG) Pt to improve right quad strength to a 4+/5 to improve sit to stand, squat, and gait activity tolerance LTG Duration 02/28/25 Assessment Summary Assessment Pt reports she still has some R knee swelling but feels that she is now back to where she was before she triggered the severe R knee swelling episode. She is completing her HEP and is able to move around in her garden using her SPC and do some functional squatting in the home and garden. Progressed activity today to give her the Derrick stretch to address her reported bilateral hip flexor tightness and to focus on eccentric resisted quad activation in seated slow return from LAQs and descending stairs leading with L or R. Pt ambulates with more normalized gait when using metronome at 95-100 bpm to improve arsen and decrease limp of R LE. Pt able to ambulate for 15 minutes outside on varied terrain with some small ascents and descents using SPC. Physical Therapy Plan Frequency and Duration Frequency of 2x/Week Treatment Plan of Care Start 11/30/24 Date Plan of Care End 02/28/25 Date Therapeutic Interventions Therapeutic Balance Training,Gait Training,Home Exercise Program, Interventions Manual Therapy,Neuromuscular Re-education,Patient/ Caregiver Education,Self-Care/Home Management,Soft Tissue Mobilization,Therapeutic Activities,Therapeutic Exercises Modalities Electric Stimulation Next Visit Focus/Plan Next Note Type Treatment Note Next Visit Plan Continue to work on eccentric quad activation, consider K tape for R knee edema if needed, progress balance work and normalized gait with metronome.
--- NOTE | 2025-01-02 15:40 | PT.OTN ---
Current Diagnoses Other symptoms and signs involving the musculoskeletal system (01/02/25) Physical Therapy Treatment Note PT OP: Lower Back/Lower Extremity Start: 12/05/24 13:49 Freq: Status: Active Protocol: Document 01/02/25 13:00 PD (Rec: 01/02/25 14:08 PD [id number]) Out-Patient Physical Therapy Visit Information Visit Information Visit Type Treatment Note Visit Note GAMALIEL Lombardi led tx session with patient consent and direct supervision by JETT Harry. Visit Start Time 13:00 Visit Stop Time 13:43 Visit Number 22 Number of PRODUCT MANAGEMENT INTERN Visits 3 Progress Note Due 01/24/25 Precautions Precautions Impression R knee MRI: 1. Tear of the medial meniscus with marked extrusion of the medial meniscus body. 2. Focal full-thickness tear of the proximal MCL without ligament retraction. 3. 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 4. Large knee effusion. Moderate sized, partially ruptured popliteal cyst. 1.0 cm ossified body in the intercondylar notch. OP-PT Subjective Patient Comments Patient Comments Pt reports she is doing well today. She has been completing the Derrick stretch, the step ups, and 's new morning warm up that includes arms swings up and side to side and marching in place. R knee swelling is still present but getting better slowly and she has been having no pain. Gym Equipment Shuttle Balance Red Details Front to Back with WBOS, Tandem; Side to Side with WBOS Reps/Duration 60 sec each position Comments Pt able to maintain balance front to back WBOS for 60 seconds with no LOB or use of UE, tandem bilaterally requires slight contact PRN of UE support/gait belt support for occasional LOB during 60 second pose, pt able to maintain midline side to side with WBOS with minimal LOB or need for UE support. Therapeutic Exercises Supine Exercises Mod Derrick stretch Supine Exercise Name Off side of table with opposite knee bent or held (as able) - for HEP Side right Reps/Minutes 2 X 60 sec, small range knee flexion x 15 at end Comments Verbal cues repeated and tactile cues Sitting Exercises LAQ Sitting Exercise VC and TC for slow eccentric quad action on decent to Name floor Side right Resistance 5# Reps/Minutes 2 x 5, count to [address] down to slow decent for eccentric focus Comments VC/TC to slow down decent for eccentric quad strength. Pt feeling VMO act. Standing Exercises sit to stand Standing Exercise Sit to stand w/o UE support Name Equipment Used 2 foam pad under feet, GB for safety, 18 mesh chair Reps/Minutes 2 x 6 Comments Arms across chest, balance and strength challenge, CGA for safety Gait Training Gait Activity Dynamic gait Description 1. Up/down 28 steps 2. gait to 110 bpm 3. tandem 4. grapevine Device Used SPC for steps, GB for safety Level of Assistance CGA for safety Surface [place] steps, level floor Distance/Duration 1. 28 6 step up/down 2. 3 laps 100 feet 3. 3 laps 30 feet 4. 2 laps 30 fee Treatment Focus Community amb pace, heel to toe steps, reciprocal stair steps, balance Comments Pt uses reciprocal gait with SPC and railing ascending and descending stairs. Descending is a challenge, cues for SPC placement and reciprocal stepping down slow and steady. Pt able walk on flat loop meeting 110 bpm step pace, cues for heel to toe roll of feet and good leg alignment. Pt able to complete tandem and grapevine walking both directions with occasional slight LOB, self corrected with hand on wall. Manual Therapy Treatment Taping Kinesio Taping for edema Comments Discussed and offered for edema, pt declined. Physical Therapy Assessment Goals Three Impairment Pt has previous HEP(s) from both PT in [place] and [place] since last fall Slag Wheeler Goal (LTG) Pt will narrow down their most relevant and appropriate exercises into a new and updated HEP 12/29/24: Pt completing HEP - Pt is doing step ups on 6 step, about 10 3x per day, doing mini lunges holding counter, squats for gardening and ADLs. 01/02/25: Pt completing HEP including Derrick stretch, 6 step ups 3 x 10/day, and new morning warm up routine with (all body arms up and down, swing side to side, marching to hand taps). Not doing mini lunges. Squats as needed for ADLs. LTG Duration 02/28/25 Two Impairment Pt demonstrating 10x 30sec sit to stand with constant bilateral UE help Slag Wheeler Goal (LTG) Pt will improve 30 sec sit to stand to 12x w/ no UE help 09/26/24: 11 reps in 30 sec, light contact chair for bal support. 12/25/24: 13 reps, no UE assist LTG Duration Met One Impairment Pt currently demonstrating 3+/5 MMT right quad Fpc Goal (LTG) Pt to improve right quad strength to a 4+/5 to improve sit to stand, squat, and gait activity tolerance LTG Duration 02/28/25 Assessment Summary Assessment Pt reports she feels good at end of session. Pt progressed gait pace to 110 bpm, ascended and descended 28 stairs with reciprocal stepping and good use of SPC and hand rail. Pt completed gait challenges in tandem and grapevine walking with intermittent self correction of hand on wall for stability and will continue to benefit from progressive gait and balance challenges in therapy. Pt will continue current HEP of step ups, will make sure to do the eccentric focuses LAQ with 5# AW at home (declined HO), and will focus gait on putting one foot in front of the other similar to tandem walking as this helps correct her R outward leg swing. Physical Therapy Plan Frequency and Duration Frequency of 2x/Week Treatment Plan of Care Start 11/30/24 Date Plan of Care End 02/28/25 Date Therapeutic Interventions Therapeutic Balance Training,Gait Training,Home Exercise Program, Interventions Manual Therapy,Neuromuscular Re-education,Patient/ Caregiver Education,Self-Care/Home Management,Soft Tissue Mobilization,Therapeutic Activities,Therapeutic Exercises Modalities Electric Stimulation Next Visit Focus/Plan Next Note Type Treatment Note Next Visit Plan Assess HEP, in particular eccentric LAQ with AW. Progress gait pace and gait on uneven surfaces, stair form and endurance focusing on descending form and pace , continue to work on balance and strength challenges.
--- NOTE | 2025-01-05 12:20 | PT.OTN ---
Current Diagnoses Other symptoms and signs involving the musculoskeletal system (01/05/25) Physical Therapy Treatment Note PT OP: Lower Back/Lower Extremity Start: 12/05/24 13:49 Freq: Status: Active Protocol: Document 01/05/25 11:30 DCW (Rec: 01/05/25 12:18 DCW [id number]) Out-Patient Physical Therapy Visit Information Visit Information Visit Type Treatment Note Visit Start Time 11:30 Visit Stop Time 12:15 Visit Number 23 Number of QUAL RESEARCH MANAGER Visits 0 Progress Note Due 01/24/25 Evaluation Information Evaluation Date 09/06/24 Precautions Precautions Impression R knee MRI: 1. Tear of the medial meniscus with marked extrusion of the medial meniscus body. 2. Focal full-thickness tear of the proximal MCL without ligament retraction. 3. 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 4. Large knee effusion. Moderate sized, partially ruptured popliteal cyst. 1.0 cm ossified body in the intercondylar notch. OP-PT Subjective Patient Comments Patient Comments Pt feeling pretty good overall. Gym Equipment Shuttle Balance Red Details WBOS, Staggered, Lateral weight shift Therapeutic Exercises Standing Exercises Hip Extension Standing Exercise Hip Extension Name Side bilateral Resistance Green loop steps Standing Exercise Step-ups/downs Name Side right Resistance 8 step up/5 step down Comments UE assist Resisted stepping Standing Exercise sideways, fwd/bwd Name Side bilateral Resistance Green loop Equipment Used // bars Neuro Re-Education Treatment Balance Activities hurdles Details hurdles/foam Comments Forward, Tandem, Side-stepping SLS Details SLS Surface Blue Foam Physical Therapy Assessment Impairments Impairments Activity Tolerance,Balance,Functional Activities, Functional Mobility,Gait,Sensation,Strength Goals Three Impairment Pt has previous HEP(s) from both PT in [place] and [place] since last fall Retirement Goal (LTG) Pt will narrow down their most relevant and appropriate exercises into a new and updated HEP 12/29/24: Pt completing HEP - Pt is doing step ups on 6 step, about 10 3x per day, doing mini lunges holding counter, squats for gardening and ADLs. 01/02/25: Pt completing HEP including Derrick stretch, 6 step ups 3 x 10/day, and new morning warm up routine with (all body arms up and down, swing side to side, marching to hand taps). Not doing mini lunges. Squats as needed for ADLs. LTG Duration 02/28/25 Two Impairment Pt demonstrating 10x 30sec sit to stand with constant bilateral UE help Nursing Technician Goal (LTG) Pt will improve 30 sec sit to stand to 12x w/ no UE help 09/26/24: 11 reps in 30 sec, light contact chair for bal support. 12/25/24: 13 reps, no UE assist LTG Duration Met One Impairment Pt currently demonstrating 3+/5 MMT right quad Retirement Goal (LTG) Pt to improve right quad strength to a 4+/5 to improve sit to stand, squat, and gait activity tolerance LTG Duration 02/28/25 Assessment Summary Assessment Pt continues to progress well, feeling more comfortable with balance and functional mobility on her right leg. Continue to focus on strengthening, gait, and balance. Physical Therapy Plan Frequency and Duration Frequency of 2x/Week Treatment Plan of Care Start 11/30/24 Date Plan of Care End 02/28/25 Date Therapeutic Interventions Therapeutic Balance Training,Gait Training,Home Exercise Program, Interventions Manual Therapy,Neuromuscular Re-education,Patient/ Caregiver Education,Self-Care/Home Management,Soft Tissue Mobilization,Therapeutic Activities,Therapeutic Exercises Modalities Electric Stimulation Next Visit Focus/Plan Next Note Type Treatment Note Next Visit Plan Assess HEP, in particular eccentric LAQ with AW. Progress gait pace and gait on uneven surfaces, stair form and endurance focusing on descending form and pace , continue to work on balance and strength challenges.
--- NOTE | 2025-01-08 14:30 | PT.OTN ---
Current Diagnoses Other symptoms and signs involving the musculoskeletal system (01/08/25) Physical Therapy Treatment Note PT OP: Lower Back/Lower Extremity Start: 12/05/24 13:49 Freq: Status: Active Protocol: Document 01/08/25 13:45 DCW (Rec: 01/08/25 14:30 DCW [id number]) Out-Patient Physical Therapy Visit Information Visit Information Visit Type Treatment Note Visit Start Time 13:45 Visit Stop Time 14:30 Visit Number 24 Number of ASSET PROTECTION LEAD Visits 0 Progress Note Due 01/24/25 Evaluation Information Evaluation Date 09/06/24 Precautions Precautions Impression R knee MRI: 1. Tear of the medial meniscus with marked extrusion of the medial meniscus body. 2. Focal full-thickness tear of the proximal MCL without ligament retraction. 3. 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 4. Large knee effusion. Moderate sized, partially ruptured popliteal cyst. 1.0 cm ossified body in the intercondylar notch. OP-PT Subjective Patient Comments Patient Comments Pt was busy gardening all weekend, notes her leg was tired by the end, but no pain, it held up pretty good. Gym Equipment Cable Column (Body Solid) Leg Curl Details Single leg Resistance 20# Leg Extension Details Single leg Resistance 10# Shuttle Recovery Bilateral Squats Details Focus on end-range extension Resistance 75# Shuttle Recovery Stable Platform Reps/Time x20 Shuttle Balance Red Details WBOS, Staggered, Lateral weight shift Neuro Re-Education Treatment Balance Activities hurdles Details hurdles/foam Comments Forward, Tandem, Side-stepping SLS Details SLS Surface Blue Foam Physical Therapy Assessment Impairments Impairments Activity Tolerance,Balance,Functional Activities, Functional Mobility,Gait,Sensation,Strength Goals Three Impairment Pt has previous HEP(s) from both PT in [place] and [place] since last fall Freelance Designer Goal (LTG) Pt will narrow down their most relevant and appropriate exercises into a new and updated HEP 12/29/24: Pt completing HEP - Pt is doing step ups on 6 step, about 10 3x per day, doing mini lunges holding counter, squats for gardening and ADLs. 01/02/25: Pt completing HEP including Derrick stretch, 6 step ups 3 x 10/day, and new morning warm up routine with (all body arms up and down, swing side to side, marching to hand taps). Not doing mini lunges. Squats as needed for ADLs. LTG Duration 02/28/25 Two Impairment Pt demonstrating 10x 30sec sit to stand with constant bilateral UE help Usp Goal (LTG) Pt will improve 30 sec sit to stand to 12x w/ no UE help 09/26/24: 11 reps in 30 sec, light contact chair for bal support. 12/25/24: 13 reps, no UE assist LTG Duration Met One Impairment Pt currently demonstrating 3+/5 MMT right quad Usp Goal (LTG) Pt to improve right quad strength to a 4+/5 to improve sit to stand, squat, and gait activity tolerance LTG Duration 02/28/25 Assessment Summary Assessment Pt tolerating activity and balance challenges well, showing improvement with her right knee pain and stability. Will continue to benefit from strengthening, balance, gait, and quad contraction Physical Therapy Plan Frequency and Duration Frequency of 2x/Week Treatment Plan of Care Start 11/30/24 Date Plan of Care End 02/28/25 Date Therapeutic Interventions Therapeutic Balance Training,Gait Training,Home Exercise Program, Interventions Manual Therapy,Neuromuscular Re-education,Patient/ Caregiver Education,Self-Care/Home Management,Soft Tissue Mobilization,Therapeutic Activities,Therapeutic Exercises Modalities Electric Stimulation Next Visit Focus/Plan Next Note Type Treatment Note Next Visit Plan Assess HEP, in particular eccentric LAQ with AW. Progress gait pace and gait on uneven surfaces, stair form and endurance focusing on descending form and pace , continue to work on balance and strength challenges.
--- NOTE | 2025-01-12 12:14 | PT.OTN ---
Current Diagnoses Other symptoms and signs involving the musculoskeletal system (01/12/25) Physical Therapy Treatment Note PT OP: Lower Back/Lower Extremity Start: 12/05/24 13:49 Freq: Status: Active Protocol: Document 01/12/25 11:30 DCW (Rec: 01/12/25 12:11 DCW [id number]) Out-Patient Physical Therapy Visit Information Visit Information Visit Type Treatment Note Visit Start Time 11:30 Visit Stop Time 12:15 Visit Number 25 Number of QUALITY CONTROL REPRESENTATIVE Visits 0 Progress Note Due 01/24/25 Evaluation Information Evaluation Date 09/06/24 Precautions Precautions Impression R knee MRI: 1. Tear of the medial meniscus with marked extrusion of the medial meniscus body. 2. Focal full-thickness tear of the proximal MCL without ligament retraction. 3. 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 4. Large knee effusion. Moderate sized, partially ruptured popliteal cyst. 1.0 cm ossified body in the intercondylar notch. OP-PT Subjective Patient Comments Patient Comments I'm getting better. I really am, I can tell. I'm excited about it. Gym Equipment Cable Column (Body Solid) Leg Curl Details Single leg Resistance 20# Leg Extension Details Single leg Resistance 10# Reps/Time DL up, R eccentric lowering Shuttle Recovery Plyometrics Details Alternating SL hopping Resistance 25# Shuttle Balance Red Details WBOS, Staggered, Lateral weight shift Neuro Re-Education Treatment Balance Activities hurdles Details hurdles/foam Comments Forward, Tandem, Side-stepping SLS Details SLS Surface Blue Foam Physical Therapy Assessment Impairments Impairments Activity Tolerance,Balance,Functional Activities, Functional Mobility,Gait,Sensation,Strength Goals Three Impairment Pt has previous HEP(s) from both PT in [place] and [place] since last fall Programmer Analyst Goal (LTG) Pt will narrow down their most relevant and appropriate exercises into a new and updated HEP 12/29/24: Pt completing HEP - Pt is doing step ups on 6 step, about 10 3x per day, doing mini lunges holding counter, squats for gardening and ADLs. 01/02/25: Pt completing HEP including Derrick stretch, 6 step ups 3 x 10/day, and new morning warm up routine with (all body arms up and down, swing side to side, marching to hand taps). Not doing mini lunges. Squats as needed for ADLs. LTG Duration 02/28/25 Two Impairment Pt demonstrating 10x 30sec sit to stand with constant bilateral UE help Programmer Analyst Goal (LTG) Pt will improve 30 sec sit to stand to 12x w/ no UE help 09/26/24: 11 reps in 30 sec, light contact chair for bal support. 12/25/24: 13 reps, no UE assist LTG Duration Met One Impairment Pt currently demonstrating 3+/5 MMT right quad Programmer Analyst Goal (LTG) Pt to improve right quad strength to a 4+/5 to improve sit to stand, squat, and gait activity tolerance LTG Duration 02/28/25 Assessment Summary Assessment Pt progressing well, showing good improvement with quad control, much more stability in right knee. Will be discharging soon due to [place] state [place] the [place]. Physical Therapy Plan Frequency and Duration Frequency of 2x/Week Treatment Plan of Care Start 11/30/24 Date Plan of Care End 02/28/25 Date Therapeutic Interventions Therapeutic Balance Training,Gait Training,Home Exercise Program, Interventions Manual Therapy,Neuromuscular Re-education,Patient/ Caregiver Education,Self-Care/Home Management,Soft Tissue Mobilization,Therapeutic Activities,Therapeutic Exercises Modalities Electric Stimulation Next Visit Focus/Plan Next Note Type Treatment Note Next Visit Plan Assess HEP, in particular eccentric LAQ with AW. Progress gait pace and gait on uneven surfaces, stair form and endurance focusing on descending form and pace , continue to work on balance and strength challenges.
--- NOTE | 2025-01-19 12:58 | PT.OTN ---
Current Diagnoses Other symptoms and signs involving the musculoskeletal system (01/19/25) Physical Therapy Treatment Note PT OP: Lower Back/Lower Extremity Start: 12/05/24 13:49 Freq: Status: Active Protocol: Document 01/19/25 12:15 DCW (Rec: 01/19/25 12:58 DCW [id number]) Out-Patient Physical Therapy Visit Information Visit Information Visit Type Treatment Note Visit Start Time 12:15 Visit Stop Time 13:00 Visit Number 26 Number of FOOD WRITER Visits 0 Progress Note Due 01/24/25 Evaluation Information Evaluation Date 09/06/24 Precautions Precautions Impression R knee MRI: 1. Tear of the medial meniscus with marked extrusion of the medial meniscus body. 2. Focal full-thickness tear of the proximal MCL without ligament retraction. 3. 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 4. Large knee effusion. Moderate sized, partially ruptured popliteal cyst. 1.0 cm ossified body in the intercondylar notch. OP-PT Subjective Patient Comments Patient Comments Pt reports her right quad was stiff and quite painful after last session for a few days, like it had spasmed or something, but was able to stretch out of it and is feeling a bit better. Will be leaving to winter in [place] on likely Jan 26. Gym Equipment Shuttle Balance Red Details WBOS, Staggered, Lateral weight shift Therapeutic Exercises Supine Exercises Mod Derrick stretch Supine Exercise Name Off side of table with opposite knee bent or held (as able) - for HEP Side right Sitting Exercises Butterfly Sitting Exercise Butterfly/Adductor stretch Name Standing Exercises calf stretch Standing Exercise gastroc, soleus Name Side bilateral Equipment Used LETI Reps/Minutes 2x60 Comments verbal cues Neuro Re-Education Treatment Balance Activities BOSU Lunge Details BOSU Lunge SLS Details SLS Surface Blue Foam Physical Therapy Assessment Impairments Impairments Activity Tolerance,Balance,Functional Activities, Functional Mobility,Gait,Sensation,Strength Goals Three Impairment Pt has previous HEP(s) from both PT in [place] and [place] since last fall 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 01/02/25: Pt completing HEP including Derrick stretch, 6 step ups 3 x 10/day, and new morning warm up routine with (all body arms up and down, swing side to side, marching to hand taps). Not doing mini lunges. Squats as needed for ADLs. 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 Pt doing quite well, feeling more optimistic about her return to function. Physical Therapy Plan Frequency and Duration Frequency of 2x/Week Treatment Plan of Care Start 11/30/24 Date Plan of Care End 02/28/25 Date Therapeutic Interventions Therapeutic Balance Training,Gait Training,Home Exercise Program, Interventions Manual Therapy,Neuromuscular Re-education,Patient/ Caregiver Education,Self-Care/Home Management,Soft Tissue Mobilization,Therapeutic Activities,Therapeutic Exercises Modalities Electric Stimulation Next Visit Focus/Plan Next Note Type Treatment Note Next Visit Plan Assess HEP, in particular eccentric LAQ with AW. Progress gait pace and gait on uneven surfaces, stair form and endurance focusing on descending form and pace , continue to work on balance and strength challenges.
--- NOTE | 2025-02-16 10:45 | PT.OPDS ---
Current Diagnoses Other symptoms and signs involving the musculoskeletal system (01/19/25) Visit Care Team Role Provider Type Cristino Mccann MD Attending Provider Non-Staff Family Provider Primary Care Provider Referring Provider Specialty: Family Practice Address: [facility] [id number], [place], [address] Email: Visit Number Visit Number 26 Discharge Summary PT OP: Lower Back/Lower Extremity Start: 12/05/24 13:49 Freq: Status: Active Protocol: Document 02/16/25 10:44 DCW (Rec: 02/16/25 10:45 DCW [id number]) Out-Patient Physical Therapy Visit Information Visit Information Visit Type Discharge Summary Physical Therapy Assessment Assessment Summary Assessment Pt has left the area for the winter, will require a new referral in order to return to physical therapy in the future. Physical Therapy Plan Frequency and Duration Frequency of 2x/Week Treatment Plan of Care Start 11/30/24 Date Plan of Care End 02/28/25 Date
== END 2025-02-19 10:38 | disposition home or self-care (01) ==
LOC: PHYS 12:15
PROVIDERS: Family Provider Family Medicine; PCP Family Medicine; Referring Provider Family Medicine; Visit Provider Family Medicine
DX: R29.898 Other symptoms and signs involving the musculoskeletal system (principal)
CPT/HCPCS: 97110; 97112; 97116; 97140; 97530